=== PATIENT | female | born 1970 | race African-American/Black ===

== ENCOUNTER 2019-03-05 16:30 | Emergency (ER) | payer MEDICAID, SELFPAY ==
[2019-03-05 16:32] VITALS: BP 129/70; PULSE 63; RESP 16; TEMP 36.7; O2SAT 98; BMI 35.9
--- NOTE | 2019-03-05 16:47 | ED.VIS.GEN ---
History of Present Illness Chief Complaint: Flank Pain Informant: Patient Onset: Days Narrative: Patient presents to the ED with right lower abdominal pain and right lumbar/flank pain that started 4 days ago. She does report some associated nausea and hematuria. She states last month, she was treated by an urgent care for urinary tract infection with 5 days of Macrobid. She is concerned for worsening infection. She does have a history of bilateral tubal ligation and cholecystectomy. Past Medical History - Allergies and Home Meds Allergies/Adverse Reactions: Allergies codeine Allergy (Verified 03/05/19 16:32) Itching doxycycline Allergy (Verified 03/05/19 16:32) Itching latex Allergy (Verified 03/05/19 16:32) Rash sulfamethoxazole [From Bactrim] Allergy (Verified 03/05/19 16:32) Rash trimethoprim [From Bactrim] Allergy (Verified 03/05/19 16:32) Rash naproxen Adverse Reaction (Verified 03/05/19 16:32) Upset Stomach NSAIDS (Non-Steroidal Anti-Inflamma Adverse Reaction (Verified 03/05/19 16:32) Upset Stomach CILLINS Allergy (Uncoded 03/05/19 16:32) Swelling Primary Care Physician: [facility] Doctor,Out of [Primary Care Provider] - Review of Systems General: Denies: Chills, Fever, Sweats Eyes: Denies: Visual changes - bilaterally, Diplopia ENT: Denies: Rhinorrhea, Sore throat Cardiovascular: Denies: Chest pain, Palpitations Respiratory: Denies: Dyspnea, Cough, Dyspnea on exertion Gastrointestinal: Reports: Abdominal pain, Nausea, Diarrhea, - - R Flank pain. Denies: Vomiting, Melena, Hematochezia Genitourinary: Reports: Hematuria. Denies: Dysuria, Frequency Musculoskeletal: Denies: Back pain, Extremity Pain Skin: Denies: Rash, Wounds Neurological: Denies: Headache, Weakness, Numbness Physical Exam Vital Signs/Narrative: Vital Signs Temp Pulse Resp BP Pulse Ox 03/05/19 16:32 98.1 F 63 16 129/70 H 98 General: Well nourished, Well developed, No Acute Distress Head: Normocephalic, Atraumatic Eyes: Perrl, EOMI ENT: Moist mucous membranes, No rhinorrhea Neck: Supple, Nontender Cardiovascular: Regular rate, Regular rhythm, No murmurs Respiratory: No distress, CTA bilaterally, Chest nontender Abdomen: Soft, Nondistended, Normal bowel sounds, Tender - RLQ Back: Nontender, Normal Inspection Extremities: Nontender, No edema Skin: Normal color, No rash Neurological: Alert, Oriented x3, Cranial nerves II-XII grossly intact, Normal Strength, Normal Sensation Psychological: Normal affect, Normal Mood Diagnostic/Tx/Re-eval - Medical Decision Making Patient presents to the ED with right lower quadrant, right flank pain and nausea. Patient was given IV fluids, Zofran, and Toradol for symptomatic relief. CBC and BMP unremarkable. Urinalysis indicates occult blood with no white blood cells or red blood cells. CT abdomen/pelvis with IV contrast was done. Results will be be followed by Dr. Bowen and appropriate disposition will be made based on results. Impression: R flank pain. Hematuria. Disposition: ED Disposition - Plan for ED Patient: Referrals: [facility] Doctor,Out of [Primary Care Provider] -
[2019-03-05] MEDS: Ondansetron 4 MG/2 ML Vial IV (17:04)
[2019-03-05] MEDS: 0.9% Normal Saline 1,000 ML 1000 ML IV (17:04)
[2019-03-05] MEDS: Ketorolac 30 MG/ML Syringe IV (17:04)
[2019-03-05 17:10] LABS: Bacteria 0 SEEN /hpf (None Seen); Mucous, Urine 0 SEEN /hpf (<or=2+); White Blood Cells 0 SEEN /hpf (0-5)
[2019-03-05 17:11] LABS: Absolute Lymphocyte Count 2.38 X10^3/uL (0.83-4.51); Absolute Neutrophil Count 2.2 X10^3/uL (2.0-7.7); Basophil# 0.08 X10^3/uL; Basophil% 1.5 % (0-1); Eosinophil# 0.32 X10^3/uL; Hematocrit 39.9 % (37-47); Hemoglobin 13.5 g/dL (12.0-15.0); Lymphocyte # 2.38 X10^3/ul (4.0); Lymphocyte % 44.3 % (19-41); Mean Corp Hgb Conc 33.8 g/dL (32-36); Mean Corpuscular Hgb 29.5 pg (27.0-32.0); Mean Corpuscular Volume 87.1 fL (81-99); Mean Platelet Vol. 9.9 fl (6.2-12.0); Monocyte# 0.39 X10^3/uL; Monocyte% 7.3 % (0-10); NRBC Flagged by Analyzer 0 % (0-5); Neutrophil # 2.17 X10^3/uL (2.7-7.7); Neutrophil % 40.3 % (47-70); Platelet Count 323 K/mm3 (150-450); RBC Distribution Width CV 14.5 % (11.6-14.6); RBC Distribution Width SD 46.3 fl (35.1-43.9); Red Blood Count 4.58 M/mm3 (4.2-5.4); White Blood Count 5.4 K/mm3 (4.4-11.0)
[2019-03-05 17:13] LABS: Color, Urine Yellow (Yellow); Glucose, Dipstick Normal (Normal); Ketone-Dipstick Negative (Negative); Leukocyte Esterase-Dipstick Negative /ul (Negative); Nitrite-Dipstick Negative (Negative); Occult Blood-Urine 250 /ul (Negative); Protein-Dipstick 15 mg/dl (Negative); Specific Gravity, Urine 1.005 (1.002-1.030); Urine Bilirubin Dipstick Negative (Negative); Urine Clarity Clear (Clear); Urine Urobilinogen Normal (Normal)
[2019-03-05 17:15] LABS: Internal QC Validated? YES +Cl - CLEAR BKGD; Pregnancy, Urine Negative Negative
[2019-03-05 17:19] LABS: Red Blood Cells-Urine 0-5 SEEN /hpf (0-5); Squamous Epithelial Cells - UA 0-5 SEEN /hpf (5-10)
[2019-03-05 17:24] LABS: Anion Gap 6 (5-15); BUN 6 mg/dL (7-18); BUN/Creat Ratio 5.9 RATIO (10-20); Calcium,Total 8.5 mg/dL (8.5-10.1); Chloride 112 mmol/L (98-107); Creatinine, Serum 1.02 mg/dL (0.55-1.02); EST Glomerular Filtration Rate 62 mL/min (>60); Est Glom Filt Rate - Afr Amer 75 mL/min (>60); Estimated Creatinine Clearance 64.52 ml/min; Glucose 94 mg/dL (74-106); Potassium 3.3 mmol/L (3.5-5.1); Sodium Level 143 mmol/L (136-145)
--- NOTE | 2019-03-05 17:25 | CT_ITS ---
STUDY: CT ABDOMEN AND PELVIS WITH CONTRAST REASON FOR EXAM: Female, 48 years old. Right flank pain and painful urination. Status post tubal ligation and cholecystectomy. RADIATION DOSAGE (If Supplied By Facility): CTDIvol = ( 15.67 ) mGy, DLP = ( 951.34 ) mGycm TECHNIQUE: Transaxial images were obtained from the dome of the diaphragm to the symphysis pubis without oral contrast. 100 IV Isovue 370 was administered. Sagittal and coronal images were reconstructed. Individualized dose optimization techniques were used for this CT. COMPARISON: None. FINDINGS: The visualized lung bases are unremarkable. The visualized portions of the heart are within normal limits. Normal liver. There are surgical clips in the gallbladder fossa consistent with a prior cholecystectomy. Normal spleen. Normal pancreas. Normal bilateral adrenal glands. Normal right kidney. Normal left kidney. Normal visualized stomach. Normal small intestine. Normal colon. The appendix is visualized and appears normal. Normal abdominal aorta. Normal inferior vena cava. Normal retroperitoneum. Normal urinary bladder. 3 cm right fundal uterine fibroid. Normal ovaries bilaterally. No free fluid of the pelvis. Normal abdominal wall. Degenerative disc findings primarily at L5-S1. CT/Abdomen/Pelvis W IV Cont ONLY IMPRESSION: Normal size of the kidneys bilaterally without hydronephrosis, renal or ureteral stones. No other cortical abnormalities. Unremarkable nondistended urinary bladder. 3 cm right fundal uterine fibroid. Otherwise negative for pelvic mass or free fluid in the pelvis. No acute bowel related findings. Negative for evidence of obstruction, perforation or inflammatory bowel changes. A normal appendix is identified. Unremarkable liver spleen and pancreas status post cholecystectomy. Electronically Signed: Ora Swanson MD at 18:16 EDT , Service support ,
--- NOTE | 2019-03-05 18:44 | DCINST.ED_ITS ---
ED Disposition - Plan for ED Patient: Disposition: Home or Assisted Living Instructions: FLANK PAIN, Uncertain Cause Prescriptions: Hydrocodone Bitart/Apap 5-325 [[place] 5MG-325MG] 1 tablet PO Q6H PRN PRN 3 Days #10 tablet PRN Reason: Pain Ondansetron [Zofran Odt] 4 mg PO Q8H PRN PRN #10 tablet PRN Reason: Nausea Referrals: Everardo Lu MD [STAFF PHYSICIAN] - As Needed
[2019-03-05 18:55] VITALS: BP 117/80; PULSE 57; RESP 15
== END 2019-03-05 19:18 | disposition home or self-care (01) ==
PROVIDERS: Physician Assistant; Emergency Provider Emergency Medicine
DX: R10.9 Unspecified abdominal pain (principal); R31.9 Hematuria, unspecified; Z88.2 Allergy status to sulfonamides; Z98.51 Tubal ligation status; Z90.49 Acquired absence of other specified parts of digestive tract; D25.9 Leiomyoma of uterus, unspecified; Z87.440 Personal history of urinary (tract) infections
CPT/HCPCS: 74177; 80048; 81001; 81025; 85025; 96361; 96374; 96375; 99283; J7030; Q9967; J2405

== ENCOUNTER 2019-03-11 16:28 | Emergency (ER) | payer MEDICAID, SELFPAY ==
[2019-03-11 16:30] VITALS: BP 135/83; PULSE 60; RESP 16; TEMP 36.5; O2SAT 98; BMI 35.9
--- NOTE | 2019-03-11 16:55 | ED.VIS.GI ---
History of Present Illness Chief Complaint: GI Bleed Informant: Patient - Abdominal Pain/Flank Pain Onset: Weeks - 1-2 Context: Gradual Onset Timing: Continuous, Waxes and wanes - before today Quality: Aching Location: Right Flank - without radiation Current Severity: Moderate Maximum Severity: Moderate Worsened by: - - lying on that side/area. Not Worsened By: Food Relieved by: Nothing. Not Relieved By: Food - Nausea/Vomiting/Emesis GI Symptom: Nausea - off and on. Negative for: Vomiting - Diarrhea/Melena/Hematochezia GI Symptom: Melena, Hematochezia - today -- mixed in w/ stool, bright red blood, relatively small amount, and when she wiped Associated Symptoms: - - I have been peeing in the hat they gave me from the ER last week, and I've seen nothing in my urine.. Negative for: Dysuria, Frequency, Hematuria, Urgency Narrative: Patient was seen here last week for this same pain, she had a negative work-up including CT that showed no kidney stones and no evidence of appendicitis. She states the pain is been colicky, but today it stayed and has been constant. The only new symptom she has has been blood in her stool that she noticed once today. She has had normal appetite, eating does not seem to affect the discomfort. She states she has been having urinary symptoms of an infection. She was placed on Cipro after seen in urgent care prior to her prior ER visit, about a month ago. She has had the urinary symptoms ever since. - Past Medical History (1) GERD (gastroesophageal reflux disease) Status: Chronic Past Medical History - Allergies and Home Meds Allergies/Adverse Reactions: Allergies codeine Allergy (Verified 03/11/19 16:29) Itching doxycycline Allergy (Verified 03/11/19 16:29) Itching latex Allergy (Verified 03/11/19 16:29) Rash sulfamethoxazole [From Bactrim] Allergy (Verified 03/11/19 16:29) Rash trimethoprim [From Bactrim] Allergy (Verified 03/11/19 16:29) Rash naproxen Adverse Reaction (Verified 03/11/19 16:29) Upset Stomach NSAIDS (Non-Steroidal Anti-Inflamma Adverse Reaction (Verified 03/11/19 16:29) Upset Stomach CILLINS Allergy (Uncoded 03/11/19 16:29) Swelling Primary Care Physician: [facility] Doctor,Out of [Primary Care Provider] - Lives: Spouse/ Significant Other Smoking Status: Never smoker Alcohol: None Drugs: None Review of Systems General: Denies: Chills, Fever, Sweats Eyes: Denies: Visual changes - bilaterally, Diplopia ENT: Denies: Rhinorrhea, Sore throat Cardiovascular: Denies: Chest pain, Palpitations Respiratory: Denies: Dyspnea, Cough, Dyspnea on exertion Gastrointestinal: Reports: Abdominal pain, Nausea, Melena, Hematochezia. Denies: Vomiting, Diarrhea Genitourinary: Reports: Dysuria, Frequency, - - Urgency. Denies: Hematuria Musculoskeletal: Denies: Back pain, Swelling, Extremity Pain Skin: Denies: Rash, Wounds Neurological: Denies: Headache, Weakness, Numbness Physical Exam Vital Signs/Narrative: Vital Signs Temp Pulse Resp BP Pulse Ox 03/11/19 16:30 97.7 F L 60 16 135/83 H 98 Inital Vital Signs reviewed: Yes General: Well nourished, Well developed, No Acute Distress - Well-appearing, conversive Head: Normocephalic, Atraumatic Eyes: Perrl, EOMI ENT: Moist mucous membranes, No rhinorrhea Neck: Supple, Nontender Cardiovascular: Regular rate, Regular rhythm, No murmurs Respiratory: No distress, CTA bilaterally, Chest nontender Abdomen: Soft, Nondistended, Normal bowel sounds, Tender - In the right upper flank. No anterior abdominal tenderness.. Negative for: Guarding, Rebound tenderness, Erickson's sign Back: Nontender, Normal Inspection. Negative for: CVA tenderness Extremities: Nontender, No edema Skin: Normal color, No rash, No Trauma Neurological: Alert, Oriented x3, Cranial nerves II-XII grossly intact, Normal Strength, Normal Sensation Psychological: Normal affect, Normal Mood Diagnostic/Tx/Re-eval 03/11/19 17:57 Stool Stool Occult Blood (RAINER) - Final Laboratory Results 03/11/19 03/11/19 03/11/19 17:12 17:12 17:12 WBC 3.9 L RBC 4.58 Hgb 13.4 Hct 39.7 MCV 86.7 MCH 29.3 MCHC 33.8 RDW Std Deviation 45.7 H RDW Coeff of Caroline 14.4 Plt Count 291 MPV 9.8 Immature Gran % (Auto) 0.300 Neut % (Auto) 33.9 L Lymph % (Auto) 49.1 H [place] % (Auto) 9.0 Eos % (Auto) 6.7 H Baso % (Auto) 1.0 Absolute Neuts (auto) 1.3 L Absolute Lymphs (auto) 1.90 Nucleated RBC % 0 Sodium 142 Potassium 3.2 L Chloride 111 H Carbon Dioxide 25.0 Anion Gap 6 BUN 4 L Creatinine 0.88 Estim Creat Clear Calc 74.78 Est GFR (MDRD) Af Amer 88 Est GFR (MDRD) Non-Af 73 BUN/Creatinine Ratio 4.5 L Glucose 93 Calcium 8.6 Total Bilirubin 0.90 AST 20 ALT 23 Alkaline Phosphatase 73 Total Protein 7.2 Albumin 3.6 Globulin 3.6 Albumin/Globulin Ratio 1.0 Urine Color Yellow Urine Clarity Cloudy Urine pH 6.5 Ur Specific [place] 1.010 Urine Protein 15 H Urine Glucose (UA) Normal Urine Ketones Negative Urine Occult Blood 10 H Urine Nitrite Negative Urine Bilirubin Negative Urine Urobilinogen Normal Ur Leukocyte Esterase 500 H Urine RBC 0-5 SEEN Urine WBC 50-100 SEEN Ur Squamous Epith Cells 0-5 SEEN Urine Bacteria 1+ Urine Mucus 0 SEEN - Medical Decision Making Urine shows evidence of infection and significant pyuria. I will send for a culture, she has several medication allergies. I do not think she has pyelonephritis, however I do not have reason for her right flank pain. She was no better after Bentyl and a GI cocktail, her rectal exam showed no melena, it was light brown stool that was Hemoccult negative. There were no hemorrhoids on exam, no tenderness, basically within normal digital rectal exam. Her pain could be GI in etiology, but all of this lends itself against that; it could be muscular as well. She is very comfortable and I do not think needs any narcotics. I will treat her urine, hopefully her pain will get better, and I will treat her with a prolonged course of cephalexin to cover against the possibility of pyelonephritis. Given her allergies and prior unsuccessful use of Cipro, that leaves us with cephalexin, which will require her to get an initial dose of ceftriaxone before discharge. I see no reason to repeat her CT scan since she had all the symptoms before, and last week the CT was negative. I discussed this with her and she understands all that and is following up with her doctor, with whom she has an appointment. ED Disposition - Plan for ED Patient: Disposition: Home or Assisted Living Diagnosis: Acute right flank pain, Urinary tract infection, Rectal bleeding Instructions: Understanding Rectal Bleeding, Urinary Tract Infections in Women, FLANK PAIN, Uncertain Cause Prescriptions: Cephalexin [Keflex] 500 mg PO Q8 #30 cap Prescription Printed Referrals: [facility] Doctor,Out of [Primary Care Provider] - Keep Valorie appointment
[2019-03-11 16:57] VITALS: BP 127/85; PULSE 54; RESP 16; O2SAT 98
[2019-03-11 17:23] LABS: Mucous, Urine 0 SEEN /hpf (<or=2+)
[2019-03-11 17:25] LABS: Color, Urine Yellow (Yellow); Glucose, Dipstick Normal (Normal); Ketone-Dipstick Negative (Negative); Leukocyte Esterase-Dipstick 500 /ul (Negative); Nitrite-Dipstick Negative (Negative); Occult Blood-Urine 10 /ul (Negative); Protein-Dipstick 15 mg/dl (Negative); Urine Bilirubin Dipstick Negative (Negative); Urine Clarity Cloudy (Clear); Urine Urobilinogen Normal (Normal); Urine pH 6.5 (5.0 - 8.0)
[2019-03-11 17:26] LABS: Absolute Neutrophil Count 1.3 X10^3/uL (2.0-7.7); Basophil# 0.04 X10^3/uL; Eosinophil# 0.26 X10^3/uL; Eosinophils% 6.7 % (0-5); Hematocrit 39.7 % (37-47); Hemoglobin 13.4 g/dL (12.0-15.0); Lymphocyte % 49.1 % (19-41); Mean Corp Hgb Conc 33.8 g/dL (32-36); Mean Corpuscular Hgb 29.3 pg (27.0-32.0); Mean Corpuscular Volume 86.7 fL (81-99); Mean Platelet Vol. 9.8 fl (6.2-12.0); Monocyte# 0.35 X10^3/uL; NRBC Flagged by Analyzer 0 % (0-5); Neutrophil # 1.31 X10^3/uL (2.7-7.7); Neutrophil % 33.9 % (47-70); Platelet Count 291 K/mm3 (150-450); RBC Distribution Width CV 14.4 % (11.6-14.6); RBC Distribution Width SD 45.7 fl (35.1-43.9); Red Blood Count 4.58 M/mm3 (4.2-5.4); White Blood Count 3.9 K/mm3 (4.4-11.0)
[2019-03-11] MEDS: Dicyclomine 10 MG Capsule 20 MG PO (17:26)
[2019-03-11] MEDS: Mag Hydrox/Al Hydrox/Simeth 30 ML UDC PO (17:27)
[2019-03-11 17:37] LABS: Red Blood Cells-Urine 0-5 SEEN /hpf (0-5); White Blood Cells 50-100 SEEN /hpf (0-5)
[2019-03-11 17:38] LABS: Bacteria 1+ /hpf (None Seen); Squamous Epithelial Cells - UA 0-5 SEEN /hpf (5-10)
[2019-03-11 17:41] LABS: AST(SGOT) 20 U/L (15-37); Alanine Aminotransfer ALT/SGPT 23 U/L (13-56); Albumin, Serum 3.6 g/dL (3.2-5.0); Alkaline Phosphatase 73 U/L (45-117); Anion Gap 6 (5-15); BUN 4 mg/dL (7-18); BUN/Creat Ratio 4.5 RATIO (10-20); Calcium,Total 8.6 mg/dL (8.5-10.1); Chloride 111 mmol/L (98-107); Creatinine, Serum 0.88 mg/dL (0.55-1.02); EST Glomerular Filtration Rate 73 mL/min (>60); Est Glom Filt Rate - Afr Amer 88 mL/min (>60); Estimated Creatinine Clearance 74.78 ml/min; Globulin 3.6 g/dL (2.2-4.2); Glucose 93 mg/dL (74-106); Potassium 3.2 mmol/L (3.5-5.1); Protein, Total 7.2 g/dL (6.4-8.2); Sodium Level 142 mmol/L (136-145)
[2019-03-11 18:33] VITALS: BP 124/85; PULSE 55; RESP 16; O2SAT 98
[2019-03-11] MEDS: Ceftriaxone 1 GM/50 ML BAG IV (19:08)
[2019-03-11 20:01] VITALS: BP 135/88; PULSE 58; RESP 16; O2SAT 99
== END 2019-03-11 20:03 | disposition home or self-care (01) ==
PROVIDERS: Emergency Provider Emergency Medicine
DX: N39.0 Urinary tract infection, site not specified (principal); K92.1 Melena; K21.9 Gastro-esophageal reflux disease without esophagitis; Z88.1 Allergy status to other antibiotic agents; Z88.2 Allergy status to sulfonamides; Z88.6 Allergy status to analgesic agent; Z91.040 Latex allergy status
CPT/HCPCS: 80053; 81001; 82274; 85025; 87086; 87088; 96365; 99284; A4216

== ENCOUNTER 2023-03-01 00:54 | Observation (INO) | payer MEDICAID, SELFPAY ==
[2023-03-01] VITALS (7 sets, daily range): BP systolic 113–132; BP diastolic 75–93; PULSE 69–80; RESP 16–18; TEMP 36.4–36.7; O2SAT 97–100; BMI 27.9; BMI 23.8
--- NOTE | 2023-03-01 01:19 | EX.ED.SAOD ---
HPI History of Present Illness Chief Complaint: Substance Abuse Informant: patient Narrative Narrative: Presents here requesting detox. Reports previous heroin user went to [facility] in 2017. Patient relapsed this past September using Percocet 30s and cocaine. She reports she did take half a tab Percocet she requested Percocet and snorted with cocaine. She does this on a daily basis sometimes multiple times a day. Last use 10 PM. She was incarcerated for 15 days in January had withdrawal symptoms then when she got she started using again. Denies any current nausea or vomiting. History of bipolar anxiety depression states she stopped taking her medications when she started using the drugs. She denies any suicidal or homicidal ideations. Denies alcohol use. She was reporting when she was in long-term had polysubstance findings from her toxicology screen including methadone MDMA and benzos which she states she did not use those. She had meth stating she tried it before long-term did not like it. Medically discussion she states she has concerns for leg swelling. No trouble urinating. She states she was attacked by pit bull in January before going to long-term. Denies any fevers. Prior similar symptoms: [facility] Medical History (Updated 03/01/23 @ 01:[address] Kristen Caraballo MD) Allergic rhinitis Anxiety and depression Bipolar disorder Chronic anemia GERD (gastroesophageal reflux disease) Iron deficiency anemia IV drug abuse Overweight Polysubstance abuse Home Medications citalopram 40 mg tablet 60 mg PO DAILY 03/05/19 [History Last Taken 03/11/19] hydroxyzine pamoate 50 mg capsule 50 mg PO DAILY 03/05/19 [History Last Taken 03/11/19] ondansetron 4 mg disintegrating tablet 4 mg PO Q8H PRN PRN Nausea #10 tabs 03/05/19 [Rx Last Taken 03/11/19] quetiapine 100 mg tablet 100 mg PO QHS 03/05/19 [History Last Taken 03/10/19] ranitidine HCl 150 mg tablet 150 mg PO DAILY 03/05/19 [History Last Taken 03/11/19] amlodipine 5 mg tablet 5 mg PO DAILY 03/11/19 [History Last Taken 03/11/19] ferrous sulfate 325 mg (65 mg iron) tablet 325 mg PO BID 03/11/19 [History Last Taken 03/11/19] topiramate 25 mg tablet 50 mg PO BID PRN PRN Headache 03/11/19 [History Last Taken Unknown] Allergy/AdvReac Type Severity Reaction Status Date / Time codeine Allergy Itching Verified 03/11/19 16:29 doxycycline Allergy Itching Verified 03/11/19 16:29 latex Allergy Rash Verified 03/11/19 16:29 Penicillins [cillins] Allergy Swelling Verified 06/28/22 14:55 sulfamethoxazole Allergy Rash Verified 03/11/19 16:29 [From Bactrim] trimethoprim [From Bactrim] Allergy Rash Verified 03/11/19 16:29 naproxen AdvReac Upset Verified 03/11/19 16:29 Stomach NSAIDS (Non-Steroidal AdvReac Upset Verified 03/11/19 16:29 Anti-Inflamma Stomach Social History Smoking Status: Never smoker ROS ROS ED Constitutional Constitutional ED: Denies chills, fever(s) or sweats Eyes Eyes: Denies change in vision ENT ENT ED: Denies dysphagia or sore throat Cardiovascular Cardiovascular: Reports leg edema; Denies chest pain, palpitations or racing heartbeat Respiratory/Chest Respiratory/Chest: Denies cough, dyspnea or dyspnea on exertion Gastrointestinal Gastrointestinal: Denies abdominal pain, diarrhea, nausea or vomiting Genitourinary Genitourinary ED: Denies dysuria, hematuria or urinary frequency Musculoskeletal Musculoskeletal: Denies back pain, extremity pain or neck pain Integumentary Denies rash or wounds Neurologic Neurologic: Denies headache(s), paresthesias or weakness Psychiatric Psychiatric: Denies suicidal ideation or suicidal thoughts EXAM Physical Exam Const Vital Signs: 03/01/23 00:55 Temperature 98 F Temperature Source Temporal Pulse Rate 77 Respiratory Rate 18 Blood Pressure 129/89 H Blood Pressure Mean 102 Pulse Ox 97 Oxygen Delivery Method Room Air Positive well nourished and well developed Constitutional Narrative: Nontoxic, General Appearance ED: well developed and NAD HEENT Reports moist mucous membranes normocephalic and atraumatic Eyes PERRL, EOMs intact bilaterally and conjunctivae normal General Eye ED: Yes normal appearance of both eyes Neck no lymphadenopathy and supple General: Negative for tenderness Chest Wall Chest: Negative for tenderness Resp normal respiratory effort and normal air movement Effort and Inspection: symmetric chest movement; Negative for respiratory distress Cardio regular rate, regular rhythm and no murmurs Peripheral Pulses: pulses 2+ throughout GI normal to inspection, nondistended, normoactive bowel sounds and non-tender Palpation: Negative for guarding or rebound tenderness present Back/Spine no CVA tenderness and no thoracic nor lumbar tenderness Extremity normal to inspection General Extremety ED: Negative for edema or tenderness General Extremity: Negative for edema Neuro oriented x3 and no sensory deficits noted Sensorium / Orientation: awake and alert Psych Psych Narrative: Denies suicidal homicidal ideations. Skin no wounds Skin Narrative: Lower extremities scattered areas abrasions and healing scabs. No indurations no drainage no erythema. MDM MDM MDM Narrative Medical decision making narrative: Interventions / MDM: Differential diagnosis: Polysubstance abuse Diagnosis considered but do not suspect: No suicidal homicidal ideations. My EKG interpretation: N/A Imaging independently reviewed and interpreted by myself: N/A External documents reviewed: N/A Test considered but not ordered:N/A ED course: Vital signs stable, nontoxic. No current withdrawal symptoms. Medical screening labs ordered. 0135: Patient concerns of leg swelling pain. Lab normal creatinine 0.93. Potassium 3.2 however chronically low from her previous labs. She is not on a diuretic. Oral replacement skin. Toxicology screen ecstasy and cocaine. No opiates or methadone, however she reports she uses Percocet 30s. Will speak with hospitalist for admission to assist with detoxification. Discussed with Dr. Caraballo for admission. Re-evaluation: stable Disposition discussed with patient/family/significant other: Case discussed with consulting clinician: Hospitalist This note was generated with [employer] dictation software. It may contain incorrect words, spelling, and punctuation that were not noted in checking the note before signing. Lab Data Attestation: I reviewed the patient's lab results. Labs: Laboratory Results - last 24 hr 03/01/23 03/01/23 01:02 01:12 WBC 6.4 RBC 3.91 L Hgb 11.2 L Hct 35.1 L MCV 89.8 MCH 28.6 MCHC 31.9 L RDW Std Deviation 43.7 RDW Coeff of Caroline 13.4 Plt Count 321 MPV 9.2 Immature Gran % (Auto) 0.300 Neut % (Auto) 54.0 Lymph % (Auto) 32.7 [place] % (Auto) 7.2 Eos % (Auto) 4.9 Baso % (Auto) 0.9 Absolute Neuts (auto) 3.5 Absolute Lymphs (auto) 2.09 Nucleated RBC % 0 Sodium 145 Potassium 3.2 L Chloride 110 H Carbon Dioxide 31.0 Anion Gap 4 L BUN 11 Creatinine 0.93 Estim Creat Clear Calc 65.12 Est GFR (MDRD) Af Amer 82 Est GFR (MDRD) Non-Af 67 BUN/Creatinine Ratio 11.8 Glucose 155 H Calcium 9.0 Magnesium 1.7 Total Bilirubin 0.70 Direct Bilirubin 0.18 AST 17 ALT 23 Alkaline Phosphatase 79 Total Protein 7.2 Albumin 3.5 Globulin 3.7 Serum , Qual NEGATIVE Urine Opiates Screen NEGATIVE Urine Methadone Screen NEGATIVE Ur Barbiturates Screen NEGATIVE Ur Phencyclidine Scrn NEGATIVE Ur Amphetamines Screen NEGATIVE MDMA (Ecstasy) Screen POSITIVE H U Benzodiazepines Scrn NEGATIVE Urine Cocaine Screen POSITIVE H U Cannabinoids Screen NEGATIVE Ur Drug Screen Comment Ethyl Alcohol < 3.0 Discharge Plan Dx/Rx/DC Orders Clinical Impression: Polysubstance dependence, History of bipolar disorder, Noncompliance with medication regimen, Hypokalemia Disposition Disposition: Acute Care Hospital [facility]
[2023-03-01 01:23] LABS: Absolute Lymphocyte Count 2.09 X10^3/uL (0.83-4.51); Absolute Neutrophil Count 3.5 X10^3/uL (2.0-7.7); Basophil# 0.06 X10^3/uL; Basophil% 0.9 % (0-1); Eosinophil# 0.31 X10^3/uL; Eosinophils% 4.9 % (0-5); Hematocrit 35.1 % (37-47); Hemoglobin 11.2 g/dL (12.0-15.0); Lymphocyte # 2.09 X10^3/ul (0.83-4.51); Lymphocyte % 32.7 % (19-41); Mean Corp Hgb Conc 31.9 g/dL (32-36); Mean Corpuscular Hgb 28.6 pg (27.0-32.0); Mean Corpuscular Volume 89.8 fL (81-99); Mean Platelet Vol. 9.2 fl (6.2-12.0); Monocyte# 0.46 X10^3/uL; Monocyte% 7.2 % (0-10); NRBC Flagged by Analyzer 0 % (0-5); Neutrophil # 3.45 X10^3/uL (2.7-7.7); Platelet Count 321 K/mm3 (150-450); RBC Distribution Width CV 13.4 % (11.6-14.6); RBC Distribution Width SD 43.7 fl (35.1-43.9); Red Blood Count 3.91 M/mm3 (4.2-5.4); White Blood Count 6.4 K/mm3 (4.4-11.0)
[2023-03-01 01:28] LABS: Amphetamine Urine VISTA NEGATIVE (<1000 ng/mL); Vista UDS pH Range 4
[2023-03-01 01:29] LABS: Barbiturate Urine VISTA NEGATIVE (< 200 ng/mL); Benzodiazepine Urine VISTA NEGATIVE (< 200 ng/mL); Cocaine Urine VISTA POSITIVE (< 300 ng/mL); Ecstacy Urine VISTA POSITIVE (< 500 ng/mL); Methadone Urine VISTA NEGATIVE (< 300 ng/mL); PCP Urine VISTA NEGATIVE (< 25 ng/mL); THC Urine VISTA NEGATIVE (< 50 ng/mL)
[2023-03-01 01:30] LABS: Internal QC Validated? YES +Cl - CLEAR BKGD; Pregnancy, Serum, hCG Quali. NEGATIVE Negative
[2023-03-01 01:33] LABS: Anion Gap 4 (5-15); BUN 11 mg/dL (7-18); BUN/Creat Ratio 11.8 RATIO (10-20); Chloride 110 mmol/L (98-107); Creatinine, Serum 0.93 mg/dL (0.55-1.02); EST Glomerular Filtration Rate 67 mL/min (>60); Est Glom Filt Rate - Afr Amer 82 mL/min (>60); Estimated Creatinine Clearance 65.12 ml/min; Glucose 155 mg/dL (74-106); Potassium 3.2 mmol/L (3.5-5.1); Sodium Level 145 mmol/L (136-145)
[2023-03-01 01:40] LABS: Alcohol, Blood (Medical)-Serum < 3.0 mg/dL
--- NOTE | 2023-03-01 01:45 | PCM.HP.STD ---
HPI - General General Date of Admission: 03/01/23 Date of Service: 03/01/23 Chief Complaint: Acute Opiate withdrawal HPI Narrative The patient is a 52 y/o F w/ PMHx: Allergic rhinitis, HTN, Anxiety and Depression/Bipolar disorder, GERD, Overweight, Polysubstance abuse (Percocet/Opiates/Cocaine, Prior IVDA w/ heroin) who presents to the [facility] ED on 03/01/23 with noted acute opiate withdrawal onset starting just prior to presentation following last dose at approximately 10 PM on day prior to presentation with primarily at this point mild agitation and restlessness but no marked abdominal pain/cramping, body aches, rhinorrhea presenting for detoxification. Patient interested in attaining clean status. Patient is a previous heroin user and was admitted for detox in 2017 unfortunately relapsing this September utilizing both Percocets and cocaine multiple times a day until she was incarcerated for approximately half a month in January with withdrawal symptoms at that time however unfortunately she started using again. Work-up in the ED included T98, heart rate 77, BP 129/89, respiratory rate 18, 97% room air, CBC with WBC 6.4, hemoglobin 11.2, MCV 89.8, platelet 321 without marked shift, BMP with potassium 3.2, glucose 155 otherwise not marked appearing, serum negative, UDS positive for MDMA and cocaine, ethyl alcohol level <3. [facility] Medical History (Updated 03/01/23 @ 01:[address] Kristen Caraballo MD) Allergic rhinitis Anxiety and depression Bipolar disorder Chronic anemia GERD (gastroesophageal reflux disease) Iron deficiency anemia IV drug abuse Overweight Polysubstance abuse Home Medications citalopram 40 mg tablet 60 mg PO DAILY 03/05/19 [History Last Taken 03/11/19] hydroxyzine pamoate 50 mg capsule 50 mg PO DAILY 03/05/19 [History Last Taken 03/11/19] ondansetron 4 mg disintegrating tablet 4 mg PO Q8H PRN PRN Nausea #10 tabs 03/05/19 [Rx Last Taken 03/11/19] quetiapine 100 mg tablet 100 mg PO QHS 03/05/19 [History Last Taken 03/10/19] ranitidine HCl 150 mg tablet 150 mg PO DAILY 03/05/19 [History Last Taken 03/11/19] amlodipine 5 mg tablet 5 mg PO DAILY 03/11/19 [History Last Taken 03/11/19] ferrous sulfate 325 mg (65 mg iron) tablet 325 mg PO BID 03/11/19 [History Last Taken 03/11/19] topiramate 25 mg tablet 50 mg PO BID PRN PRN Headache 03/11/19 [History Last Taken Unknown] Allergy/AdvReac Type Severity Reaction Status Date / Time codeine Allergy Itching Verified 03/11/19 16:29 doxycycline Allergy Itching Verified 03/11/19 16:29 latex Allergy Rash Verified 03/11/19 16:29 Penicillins [cillins] Allergy Swelling Verified 06/28/22 14:55 sulfamethoxazole Allergy Rash Verified 03/11/19 16:29 [From Bactrim] trimethoprim [From Bactrim] Allergy Rash Verified 03/11/19 16:29 naproxen AdvReac Upset Verified 03/11/19 16:29 Stomach NSAIDS (Non-Steroidal AdvReac Upset Verified 03/11/19 16:29 Anti-Inflamma Stomach Family History (Updated 03/01/23 @ 02:[address] Kristen Caraballo MD) Mother Diabetes Hypertension Rheumatoid arthritis Father Diabetes Cancer Hypertension Surgical History (Updated 03/01/23 @ 02:[address] Kristen Caraballo MD) History of tubal ligation Hx of cholecystectomy Social History (Updated 03/01/23 @ 02:[address] Kristen Caraballo MD) household members: other details: Her 18 year old daughter lives with her. Smoking Status: Never smoker alcohol intake: never substance use type: crack/cocaine, heroin, opiates and IV drugs ROS ROS Narrative Admission Review of Systems: CONSTITUTIONAL: No weight loss, fever, chills, + weakness or fatigue. HEENT: Eyes: No visual loss, blurred vision, double vision or yellow sclerae. Ears, Nose, Throat: No hearing loss, sneezing, congestion, runny nose or sore throat. SKIN: + Hx canine bit prior to recent incarceration. CARDIOVASCULAR: No chest pain, chest pressure or chest discomfort, palpitations, edema, orthopnea, syncopal events. RESPIRATORY: No shortness of breath, cough or sputum, wheezing, hemoptysis. GASTROINTESTINAL:+ anorexia. No nausea, vomiting or diarrhea, abdominal pain, melena, BRBPR. GENITOURINARY: No dysuria, frequency, urgency or retention. NEUROLOGICAL: + Restlessness. No headache, dizziness, syncope, paralysis, ataxia, numbness or tingling in the extremities, focal weakness, change in bowel or bladder control, seizure. MUSCULOSKELETAL: + muscle, back pain, joint pain or stiffness. HEMATOLOGIC: No anemia, bleeding or bruising. LYMPHATICS: No enlarged nodes. No history of splenectomy. PSYCHIATRIC: + history of depression or anxiety. ENDOCRINOLOGIC: No reports of sweating, cold or heat intolerance. No polyuria or polydipsia. ALLERGIES: + history of rhinitis. Vital Signs Vital Signs Vital Signs: 03/01/23 00:55 Temperature 98 F Temperature Source Temporal Pulse Rate 77 Respiratory Rate 18 Blood Pressure 129/89 H Blood Pressure Mean 102 Pulse Ox 97 Oxygen Delivery Method Room Air Weight Weight: 167 lb 15.876 oz Body Mass Index (BMI) 27.9 Physical Exam Narrative Physical Examination: General: Awake, alert, oriented x 3 and cooperative, seated upright in the ED bed in no apparent distress, very restless, moving around the room constantly. Skin: Normal color, normal turgor, no icterus, no cyanosis except for various abrasions, picked region. HEENT: AT/NC, EOMI, PERRLA, mildly dry MM, no carotid bruits or JVD noted. Lungs: Diminished, > bases, appropriate effort, no rales, ronchi or wheezing. Heart: Regular rate and rhythm; no gallop, rub audible. Abdomen: Soft, overweight, NTTP, ND, mildly hyperative BS, no HSM. Extremities: No cyanosis, clubbing, or edema. Neurological: Patient awake, alert, oriented as noted, cognitive function intact; pupils equally reactive to light and accommodation, cranial nerves grossly normal, moving all 4 extremities, no focal deficits, strength mildly globally decreased secondary to acute presentation, restless. Psychiatric: Affect appears restless, mildly agitated, no acute evidence of depressive or anxiety feelings but does have underlying history. Results Lab / Micro Data 03/01/23 01:12 03/01/23 01:12 Labs: Laboratory Results - last 24 hr 03/01/23 01:02: Urine Opiates Screen NEGATIVE, Urine Methadone Screen NEGATIVE, Ur Barbiturates Screen NEGATIVE, Ur Phencyclidine Scrn NEGATIVE, Ur Amphetamines Screen NEGATIVE, MDMA (Ecstasy) Screen POSITIVE H, U Benzodiazepines Scrn NEGATIVE, Urine Cocaine Screen POSITIVE H, U Cannabinoids Screen NEGATIVE, Ur Drug Screen Comment 03/01/23 01:12: WBC 6.4, RBC 3.91 L, Hgb 11.2 L, Hct 35.1 L, MCV 89.8, MCH 28.6, MCHC 31.9 L, RDW Std Deviation 43.7, RDW Coeff of Caroline 13.4, Plt Count 321, MPV 9.2, Immature Gran % (Auto) 0.300, Neut % (Auto) 54.0, Lymph % (Auto) 32.7, [place] % (Auto) 7.2, Eos % (Auto) 4.9, Baso % (Auto) 0.9, Absolute Neuts (auto) 3.5, Absolute Lymphs (auto) 2.09, Nucleated RBC % 0, Sodium 145, Potassium 3.2 L, Chloride 110 H, Carbon Dioxide 31.0, Anion Gap 4 L, BUN 11, Creatinine 0.93, Estim Creat Clear Calc 65.12, Est GFR (MDRD) Af Amer 82, Est GFR (MDRD) Non-Af 67, BUN/Creatinine Ratio 11.8, Glucose 155 H, Calcium 9.0, Serum , Qual NEGATIVE, Ethyl Alcohol < 3.0 Assessment & Plan Assessment/Plan (1) Opiate withdrawal: PLAN: Plan The patient is a 52 y/o F w/ PMHx: Allergic rhinitis, HTN, Anxiety and Depression/Bipolar disorder, GERD, Overweight, Polysubstance abuse (Percocet/Opiates/Cocaine, Prior IVDA w/ heroin) who presents to the [facility] ED on 03/01/23 with noted acute opiate withdrawal onset starting just prior to presentation following last dose at approximately 10 PM on day prior to presentation with primarily at this point mild agitation and restlessness. #1. Acute Opiate Withdrawal: Will admit to [facility], routine labs including CBC, BMP, urine for drug screen, EtOH initiated per ED physician, will add hepatic panel. Will initiate and continue on protocol with tapering course of Subutex, as needed tylenol, ibuprofen, bowel regimen, gabapentin, Bentyl, Vistaril, methocarbamol, clonidine, PRN nightly trazodone for insomnia, IV fluids, IV antiemetics. Once patient clinically improved and completion of taper nearing will plan consultation with case management for transition to next level of rehabilitation care. #2. Polysubstance Abuse with history of prior IV drug abuse: Given abuse history of IVDA to be cautious will request HIV, hepatitis panel as well as RPR given prominent in the community to be cautious. patient currently not candidate for hep C treatment currently as needs to be clean, sober x 6 months, documented attendance NA or AA meetings, counseling and ongoing negative drug screens. Once appropriate GI, ID to initiate. HIV, hepatitis panel to assess for co-infection pending. Encouraged PCP establishment and follow-up. #3. Hypokalemia: Admission K+ 3.2, magnesium level requested, supplementation given, repeat level in AM. #4. Hyperglycemia: Admission glucose 155, no diabetic history, to be cautious we will obtain hemoglobin A1c and if consistent with diabetes will request nutrition consultation for education and teaching and transition to ADA diet with Accu-Cheks with insulin sliding scale #5. Hypertension: From recent medications noted patient was started on norvasc, BP currently normal range and she states she is not taking, potentially related with cocaine usage, will hold regimen restart and monitor BP with re-addition if appropriate. #6. Chronic anemia/Fe deficiency: Admission CBC with hemoglobin 11.2, MCV 89.8, most recent labs noted 03/11/19 with Hgb 13.4 at that time, prior medication list noting Fe supplementation BID, no longer taking. #7. Anxiety and Depression/Bipolar disorder: Patient previously per records had been on Seroquel, hydroxyzine as well as citalopram, reports no longer taking, unfortunately likely contributing to her opiate abuse as well as cocaine use, will encourage aggressive outpatient follow-up and medications for appropriate #8. GERD: Will cotninue home famotidine regimen, PRN mylanta regimen. #9. Allergic rhinitis: From records patient Rx 10/24/22 adrián, given her psychiatric history to be cautious with its black box warning will d/c this medication and recommend claritin or allergra as an initial agent instead. #10. Overweight: Weight loss and lifestyle changes encouraged. #11. DVT prophylaxis: Low risk for current presentation. Charges/Coding Visit Charges Inpatient E&M: 00447 Init Hosp L3
[2023-03-01] MEDS: Potassium Chloride Oral Tablet 20 MEQ 40 MEQ PO (01:47)
[2023-03-01 02:14] LABS: AST(SGOT) 17 U/L (15-37); Alanine Aminotransfer ALT/SGPT 23 U/L (13-56); Albumin, Serum 3.5 g/dL (3.2-5.0); Alkaline Phosphatase 79 U/L (45-117); Bilirubin, Direct 0.18 mg/dL (0.00-0.30); Globulin 3.7 g/dL (2.2-4.2); Magnesium 1.7 mg/dL (1.6-2.6); Protein, Total 7.2 g/dL (6.4-8.2)
[2023-03-01 02:42] LABS: HIV - WCH Non-Reactive (Nonreactive); Syphilis Antibodies Non-reactive
[2023-03-01] MEDS: DiphenhydrAMINE 50 MG/ML Syringe 25 MG IV ×2 (04:14→10:52)
[2023-03-01] MEDS: Lactated Ringers 1,000 ML 125 ML IV (04:16)
[2023-03-01] MEDS: 0.9% Saline Lock 10 ML Syringe IV ×2 (04:17→10:53)
--- NOTE | 2023-03-01 05:01 | EKG12_ITS ---
Test Reason : ADMISSION EKG Blood Pressure : / mmHG Vent. Rate : 073 BPM Atrial Rate : 073 BPM P-R Int : 150 ms QRS Dur : 082 ms QT Int : 406 ms P-R-T Axes : 068 004 017 degrees QTc Int : 447 ms Normal sinus rhythm Normal ECG No previous ECGs available Confirmed by RACHELLE GONZÁLES ([id number]), editor map ARIANA NOEL ([id number]) on 03/09/2023 9:40:37 AM Referred By: EDGAR Confirmed By:RACHELLE GONZÁLES
[2023-03-01 06:15] LABS: Hepatitis B Surface Antibody Reactive; Hepatitis B Surface Antigen Non-Reactive (Nonreactive)
[2023-03-01 06:16] LABS: Hepatitis C Antibody REACTIVE (Nonreactive)
--- NOTE | 2023-03-01 06:38 | NURSING ---
Pt informs this RN that she needs paperwork filled out and sent to her [employer] airspace control officer, stating that she is admitted to [facility]. Pt provides information regarding her [employer]oc airspace control officer; email provided to reach her is [email or web address] and her phone number is [phone]. Pt also provides information on her immigration attorney, whom she states is with [employer]. His name is Nicolas and his number is [phone]. Mansoor
[2023-03-01 06:53] LABS: ALB/GLOB Ratio 0.9 RATIO (0.9-2.4); AST(SGOT) 16 U/L (15-37); Alanine Aminotransfer ALT/SGPT 20 U/L (13-56); Albumin, Serum 2.9 g/dL (3.2-5.0); Alkaline Phosphatase 70 U/L (45-117); Anion Gap 7 (5-15); BUN 10 mg/dL (7-18); BUN/Creat Ratio 13.5 RATIO (10-20); Calcium,Total 8.1 mg/dL (8.5-10.1); Chloride 113 mmol/L (98-107); Creatinine, Serum 0.74 mg/dL (0.55-1.02); EST Glomerular Filtration Rate 88 mL/min (>60); Est Glom Filt Rate - Afr Amer 107 mL/min (>60); Estimated Creatinine Clearance 85.14 ml/min; Globulin 3.2 g/dL (2.2-4.2); Glucose 114 mg/dL (74-106); Protein, Total 6.1 g/dL (6.4-8.2); Sodium Level 147 mmol/L (136-145)
[2023-03-01] MEDS: Acetaminophen 325 MG Tablet 650 MG PO (06:57)
[2023-03-01] MEDS: hydrOXYzine PAM 25 MG Capsule 50 MG PO (06:57)
[2023-03-01] MEDS: Methocarbamol 750 MG Tablet 1500 MG PO ×3 (06:57→21:46)
--- NOTE | 2023-03-01 07:59 | PCM.PN.HOSP ---
Reason for Visit Reason for Visit: Acute opiate withdrawal Subjective Subjective Ms. Troy is a 52-year-old white female with a history of opiate abuse who presented to the emergency department at [facility] on 03/01/2023 and acute opiate withdrawal. 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 She was recently incarcerated for about 2 weeks in January at which time she experienced withdrawal symptoms but unfortunately after release she started using again. Most recently she was utilizing intranasal Percocet and cocaine and she is doing this at least on a daily basis typically multiple times a day. Last use was at 10 PM on the day prior to admission. Withdrawal symptoms present on admission were restlessness and mild agitation. She denied any abdominal pain, cramping, body aches, rhinorrhea or piloerection upon presentation. She is interested in sobriety and work-up upon presentation was unremarkable other than a positive urine toxicology screen for MDMA and cocaine. Her test was unremarkable. Hepatitis and HIV were obtained. Hepatitis C antibody was reactive, hepatitis B antibody was reactive, HIV was nonreactive. Objective Data Objective Data Vital Signs: Vital Signs Temp Pulse Resp BP Pulse Ox O2 Del Method 97.5 F L 80 18 116/75 98 Room Air 03/01/23 07:00 03/01/23 07:00 03/01/23 07:00 03/01/23 07:00 03/01/23 07:00 03/01/23 07:00 Oxygen Delivery Method Room Air Weight: 67.1 kg Body Mass Index (BMI) 23.8 Lab / Micro Data 03/01/23 01:12 03/01/23 06:06 Labs: Laboratory Results - last 24 hr 03/01/23 01:02: Urine Opiates Screen NEGATIVE, Urine Methadone Screen NEGATIVE, Ur Barbiturates Screen NEGATIVE, Ur Phencyclidine Scrn NEGATIVE, Ur Amphetamines Screen NEGATIVE, MDMA (Ecstasy) Screen POSITIVE H, U Benzodiazepines Scrn NEGATIVE, Urine Cocaine Screen POSITIVE H, U Cannabinoids Screen NEGATIVE, Ur Drug Screen Comment 03/01/23 01:12: WBC 6.4, RBC 3.91 L, Hgb 11.2 L, Hct 35.1 L, MCV 89.8, MCH 28.6, MCHC 31.9 L, RDW Std Deviation 43.7, RDW Coeff of Caroline 13.4, Plt Count 321, MPV 9.2, Immature Gran % (Auto) 0.300, Neut % (Auto) 54.0, Lymph % (Auto) 32.7, [place] % (Auto) 7.2, Eos % (Auto) 4.9, Baso % (Auto) 0.9, Absolute Neuts (auto) 3.5, Absolute Lymphs (auto) 2.09, Nucleated RBC % 0, Sodium 145, Potassium 3.2 L, Chloride 110 H, Carbon Dioxide 31.0, Anion Gap 4 L, BUN 11, Creatinine 0.93, Estim Creat Clear Calc 65.12, Est GFR (MDRD) Af Amer 82, Est GFR (MDRD) Non-Af 67, BUN/Creatinine Ratio 11.8, Glucose 155 H, Calcium 9.0, Magnesium 1.7, Total Bilirubin 0.70, Direct Bilirubin 0.18, AST 17, ALT 23, Alkaline Phosphatase 79, Total Protein 7.2, Albumin 3.5, Globulin 3.7, Serum , Qual NEGATIVE, Ethyl Alcohol < 3.0, Syphilis Total Ab Non-reactive, Hep Bs Antigen Non-Reactive, Hep Bs Antibody Reactive, Hepatitis C Antibody REACTIVE, HIV 1&2 Antibody Non-Reactive 03/01/23 06:06: Sodium 147 H, Potassium 3.0 L, Chloride 113 H, Carbon Dioxide 27.0, Anion Gap 7, BUN 10, Creatinine 0.74, Estim Creat Clear Calc 85.14, Est GFR (MDRD) Af Amer 107, Est GFR (MDRD) Non-Af 88, BUN/Creatinine Ratio 13.5, Glucose 114 H, Calcium 8.1 L, Total Bilirubin 0.50, AST 16, ALT 20, Alkaline Phosphatase 70, Total Protein 6.1 L, Albumin 2.9 L, Globulin 3.2, Albumin/Globulin Ratio 0.9 Assessment & Plan Assessment/Plan (1) Opiate withdrawal: (2) Hypokalemia: (3) Hypernatremia: PLAN: Plan Acute opiate withdrawal -Continue Subutex per COWS protocol -Continue as needed medication for symptom management -Immune against hepatitis B -Hepatitis C antibody is positive -HIV is nonreactive -180 consultation Hypokalemia -Potassium remains low at 3.0 this morning -60 mill colons p.o. potassium -Repeat BMP in a.m. -Mag level was within normal limits at 1.7 Hypernatremia/hyperchloremia -We will give 1 L of half-normal saline -Repeat BMP in a.m. Hepatitis C infection -Hepatitis C antibody is positive -We will check hepatitis C viral load to ascertain whether or not she is cleared infection or is a chronic carrier -She would be a candidate for treatment if she can obtain sobriety and maintain this Hyperglycemia -Fasting blood sugar this morning is 114 -Hemoglobin A1c is pending -No history of diabetes Hypertension -Patient with documented history of hypertension and on amlodipine -Amlodipine held on admission and blood pressures are to be stable -Continue to monitor and restart if needed -Blood pressures may have been elevated previously due to cocaine however she was cocaine positive this time as well History of anemia secondary to iron deficiency -Hemoglobin on presentation was 11.2 -Continue home iron GERD -Continue home famotidine Allergic rhinitis -Restart home Singulair Anxiety/depression/bipolar disorder -Patient is not currently on any medications for her bipolar disorder -Continue citalopram DVT prophylaxis -Low risk -Encourage early and frequent ambulation
[2023-03-01 08:16] LABS: Hemoglobin A1c 5.3 % (3.8-5.6)
[2023-03-01] MEDS: Gabapentin 300 MG Capsule PO (09:22)
[2023-03-01] MEDS: 0.45% Normal Saline 1,000 ML 100 ML IV (09:23)
[2023-03-01] MEDS: Potassium Chloride Oral Tablet 20 MEQ 60 MEQ PO (09:23)
--- NOTE | 2023-03-01 10:22 | ADDICTION ---
This show card writer met with PT to conduct ASAM, MSE, AUDIT, DUDIT assessments and to plan for d/c. PT A+Ox4 and participated actively. All assessments completed and placed in PT's chart. PT plans to f/u with [facility] at [facility] for follow-up in patient treatment services on Wednesday. [facility] will transport to treatment.
[2023-03-01] MEDS: Famotidine 20 MG Tablet PO ×2 (10:53→21:46)
[2023-03-01] MEDS: Ferrous Sulfate 325 MG Tablet PO ×2 (10:53→17:08)
[2023-03-01] MEDS: Ibuprofen 600 MG Tablet PO ×2 (13:20→21:46)
--- NOTE | 2023-03-01 15:32 | CHAPLAIN ---
Type of Pastoral Visit ___ Initial Visit ___ Follow-up Visit ___ On-call Visit ___ General Patient Visit ___ Spiritual Assessment ___ Family Conference ___ Bereavement ___ Rapid Response ___ Code Blue ___ Other (describe below) Pastoral Care Referral From ___ Patient ___ Family ___ Nurse ___ Physician ___ Inspector Welded Parts ___ Credit Cashier ___ Other (describe below) Sacrament/Intervention ___ Active listening ___ Anointing ___ Jehovah'S Witness ___ Bereavement ___ Communion ___ Laura exploration ___ ___ Life review ___ Prayer ___ Reconciliation ___ Sacrament of Sick ___ Supportive presence ___ Wedding ___ Other (describe below) Pastoral Comments patient is sound asleep and does not awaken to her name; left a calling card
[2023-03-01] MEDS: Montelukast 10 MG Tablet PO (21:45)
[2023-03-02] MEDS: DiphenhydrAMINE 50 MG/ML Syringe 25 MG IV ×4 (02:52→21:28)
[2023-03-02 03:01] VITALS: BP 129/98; PULSE 63; RESP 15; TEMP 36.8; O2SAT 98
[2023-03-02] MEDS: Acetaminophen 325 MG Tablet 650 MG PO ×2 (03:01→08:16)
[2023-03-02] MEDS: Ibuprofen 600 MG Tablet PO ×2 (05:16→14:41)
[2023-03-02 07:10] VITALS: O2SAT 96
[2023-03-02 07:14] LABS: Anion Gap 4 (5-15); BUN 7 mg/dL (7-18); BUN/Creat Ratio 9.2 RATIO (10-20); Calcium,Total 8.1 mg/dL (8.5-10.1); Chloride 117 mmol/L (98-107); Creatinine, Serum 0.76 mg/dL (0.55-1.02); EST Glomerular Filtration Rate 86 mL/min (>60); Est Glom Filt Rate - Afr Amer 104 mL/min (>60); Glucose 106 mg/dL (74-106); Sodium Level 143 mmol/L (136-145)
[2023-03-02 07:59] VITALS: BP 126/81; PULSE 70; RESP 16; TEMP 36.7; O2SAT 99
[2023-03-02] MEDS: Ondansetron 8 MG Tablet PO (08:17)
[2023-03-02] MEDS: Ferrous Sulfate 325 MG Tablet PO ×2 (08:17→16:29)
[2023-03-02] MEDS: Famotidine 20 MG Tablet PO ×2 (08:17→21:14)
[2023-03-02] MEDS: cloNIDine HCl 0.1 MG Tablet PO ×2 (08:17→16:29)
[2023-03-02] MEDS: Dicyclomine 10 MG Capsule 20 MG PO (08:17)
[2023-03-02] MEDS: hydrOXYzine PAM 25 MG Capsule 50 MG PO ×2 (08:17→14:41)
[2023-03-02] MEDS: Methocarbamol 750 MG Tablet 1500 MG PO ×3 (09:04→21:28)
[2023-03-02] MEDS: Buprenorphine HCl 2 MG TAB.SUBL SL ×3 (09:04→23:21)
[2023-03-02] MEDS: 0.9% Saline Lock 10 ML Syringe IV (09:05)
[2023-03-02] MEDS: Gabapentin 600 MG Tablet PO (11:44)
--- NOTE | 2023-03-02 12:40 | PN.HOSP_ITS ---
Reason for Visit Reason for Visit: Opiate detox Subjective Subjective Patient complaining of lower extremity cramping and pain. Has not yet tried gabapentin so we will try one 600 mg dose. Denies any nausea vomiting or diarrhea. Is aware the plan is for discharge tomorrow to inpatient at 180 and she states she feels that she will be ready. Objective Data Objective Data Vital Signs: Vital Signs Temp Pulse Resp BP Pulse Ox O2 Del Method 98.1 F 70 16 126/81 H 99 Room Air 03/02/23 07:59 03/02/23 07:59 03/02/23 07:59 03/02/23 07:59 03/02/23 07:59 03/02/23 08:00 Oxygen Delivery Method Room Air Weight: 67.1 kg Body Mass Index (BMI) 23.8 Intake & Output: Intake and Output for Last 24 Hours 02/28/23 03/01/23 03/02/23 23:59 23:59 23:59 Intake Total 959.58 / 959.58 1000 / 1000 Output Total 0 / 0 Balance 959.58 / 959.58 1000 / 1000 Lab / Micro Data 03/01/23 01:12 03/02/23 06:27 Labs: Laboratory Results - last 24 hr 03/02/23 06:27: Sodium 143, Potassium 4.0, Chloride 117 H, Carbon Dioxide 22.0, Anion Gap 4 L, BUN 7, Creatinine 0.76, Estim Creat Clear Calc 82.90, Est GFR (MDRD) Af Amer 104, Est GFR (MDRD) Non-Af 86, BUN/Creatinine Ratio 9.2 L, Glucose 106, Calcium 8.1 L Physical Exam Const alert, oriented x3, no apparent distress, average body habitus and well nourished Constitutional Narrative: Middle-aged, -[place] female, sitting up in bed watching television, appears comfortable nontoxic HEENT head/scalp atraumatic and moist oral mucous membranes Head and Scalp: normocephalic Extremity no clubbing, cyanosis or edema Extremity Narrative: Pedal pulses are 2+ Psych affect normal Psych Narrative: Eye contact is good, patient interacts appropriately Assessment & Plan Assessment/Plan (1) Hypernatremia: (2) Opiate withdrawal: (3) Hypokalemia: PLAN: Plan Acute opiate withdrawal -Continue Subutex per COWS protocol -Continue as needed medication for symptom management -Immune against hepatitis B -Hepatitis C antibody is positive -HIV is nonreactive -180 has evaluated the patient and plan is for discharge to [facility] inpatient rehab on 03/03/2023 Hypokalemia -Resolved Hypernatremia/hyperchloremia -Resolved Hepatitis C infection -Hepatitis C antibody is positive -We will check hepatitis C viral load to ascertain whether or not she is cleared infection or is a chronic carrier -She would be a candidate for treatment if she can obtain sobriety and maintain this Hyperglycemia -Fasting blood sugar this morning is 114 -A1c is 5.3 therefore patient is not diabetic -No history of diabetes Hypertension -Patient with documented history of hypertension and on amlodipine -Amlodipine held on admission and blood pressures remained stable however do appear to be creeping up some we will continue to monitor and add back am lodipine if required at discharge -Continue to monitor and restart if needed -Blood pressures may have been elevated previously due to cocaine however she was cocaine positive this time as well History of anemia secondary to iron deficiency -Hemoglobin on presentation was 11.2 -Continue home iron GERD -Continue home famotidine Allergic rhinitis -Continue home Singulair Anxiety/depression/bipolar disorder -Patient is not currently on any medications for her bipolar disorder -Continue citalopram DVT prophylaxis -Low risk -Encourage early and frequent ambulation Charges/Coding Visit Charges Inpatient E&M: 43118 [facility] L1
--- NOTE | 2023-03-02 12:49 | CHAPLAIN ---
Type of Pastoral Visit _x__ Initial Visit ___ Follow-up Visit ___ On-call Visit ___ General Patient Visit ___ Spiritual Assessment ___ Family Conference ___ Bereavement ___ Rapid Response ___ Code Blue ___ Other (describe below) Pastoral Care Referral From _x__ Patient ___ Family ___ Nurse ___ Physician ___ Sushi Chef ___ Access Representative ___ Other (describe below) Sacrament/Intervention _x__ Active listening ___ Anointing ___ Mormon ___ Bereavement ___ Communion ___ Laura exploration ___ ___ Life review _x__ Prayer ___ Reconciliation ___ Sacrament of Sick _x__ Supportive presence ___ Wedding ___ Other (describe below) Pastoral Comments patient stated that she was willing to have a prayer said; after prayer she was more talkative about her need and her fears; visit was still brief but there was an acknowledgement from patient of her appreciation for support offered; pt stated that she has some support for recovery but still has so much going on in my life right now;
[2023-03-02 14:32] VITALS: BP 115/88; PULSE 70; RESP 18; TEMP 36.5; O2SAT 100
[2023-03-02] MEDS: Topiramate 50 MG Tablet PO (14:36)
[2023-03-02 16:15] VITALS: BP 120/87; PULSE 77; RESP 18; TEMP 36.4; O2SAT 100
[2023-03-02 20:00] VITALS: BP 112/79; PULSE 77; RESP 18; TEMP 36.5; O2SAT 100
[2023-03-02] MEDS: Montelukast 10 MG Tablet PO (21:14)
[2023-03-03 02:30] VITALS: BP 115/83; PULSE 69; RESP 17; TEMP 36.6; O2SAT 99
[2023-03-03] MEDS: DiphenhydrAMINE 50 MG/ML Syringe 25 MG IV (03:35)
[2023-03-03] MEDS: Methocarbamol 750 MG Tablet 1500 MG PO (03:41)
[2023-03-03] MEDS: Topiramate 50 MG Tablet PO (03:54)
[2023-03-03 07:06] VITALS: O2SAT 96
[2023-03-03 08:00] VITALS: BP 116/71; PULSE 74; RESP 18; TEMP 36.2; O2SAT 100
[2023-03-03] MEDS: Acetaminophen 325 MG Tablet 650 MG PO (08:32)
[2023-03-03] MEDS: Buprenorphine HCl 2 MG TAB.SUBL SL (08:33)
[2023-03-03] MEDS: Ferrous Sulfate 325 MG Tablet PO (08:38)
[2023-03-03] MEDS: Famotidine 20 MG Tablet PO (08:38)
--- NOTE | 2023-03-03 10:58 | PCM.DC.SUM ---
Providers Date of Admission: 03/01/23 Date of Discharge: 03/03/23 Primary Care Physician: Dr. Shira Rider MD Reason For Visit: OPIATE WITHDRAWL Diagnosis Discharge Diagnosis (1) Hypernatremia: Status: Acute Code(s): E87.0 - Hyperosmolality and hypernatremia (2) Opiate withdrawal: Status: Acute Code(s): F11.93 - Opioid use, unspecified with withdrawal (3) Hypokalemia: Status: Acute Code(s): E87.6 - Hypokalemia Medications at Discharge Home Medications citalopram 40 mg tablet 60 mg PO DAILY ANXIETY/DEPRESSION 03/05/19 hydroxyzine pamoate 50 mg capsule 50 mg PO DAILY ANXIETY 03/05/19 ranitidine HCl 150 mg tablet 150 mg PO DAILY PRN MIGRAINE 03/05/19 ferrous sulfate 325 mg (65 mg iron) tablet 325 mg PO BID ANEMIA 03/11/19 topiramate 25 mg tablet 50 mg PO BID PRN PRN Headache 03/11/19 famotidine 40 mg tablet 40 mg PO QHS ACID REFLUX 03/01/23 montelukast 10 mg tablet 10 mg PO QHS ALLERGIES 03/01/23 Hospital Course Operations None Procedures None Summary of Care Provided Minutes Spent on Discharge: 22 Hospital Course: Ms. Troy is a 52-year-old white female with a history of opiate abuse who presented to the emergency department at [facility] on 03/01/2023 for acute opiate withdrawal. 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 She was recently incarcerated for about 2 weeks in January at which time she experienced withdrawal symptoms, but unfortunately after release she started using again. Most recently she was utilizing intranasal Percocet and cocaine and she had been doing this at least on a daily basis typically multiple times a day. Last use was at 10 PM on the day prior to admission. Withdrawal symptoms present on admission were restlessness and mild agitation. She denied any abdominal pain, cramping, body aches, rhinorrhea or piloerection upon presentation. She is interested in sobriety and work-up upon presentation was unremarkable other than a positive urine toxicology screen for MDMA and cocaine. Her test was unremarkable. Hepatitis and HIV were obtained. Hepatitis C antibody was reactive, hepatitis B antibody was reactive, HIV was nonreactive. Patient reports she has been treated for hepatitis C previously. She was admitted and placed on a Subutex taper. Supportive medications were utilized for symptom management. She was seen by addiction medicine and plan for discharge to inpatient rehab facility on 03/03/2023 was set up. Patient had an overall uncomplicated detox and was able to be discharged in stable condition on 03/03/2023. Discharge diagnoses: Acute opiate withdrawal-resolved Polysubstance abuse Hypokalemia-resolved Hypernatremia/hyperchloremia-resolved History of hepatitis C infection status posttreatment Hypertension History of anemia secondary to iron deficiency GERD Allergic rhinitis Anxiety Depression Bipolar disorder Physical Exam Const alert, oriented x3, no apparent distress, average body habitus and well nourished Constitutional Narrative: Middle-aged, -Trist[place] female, sitting up in bed watching television, appears comfortable nontoxic General Appearance: cooperative, comfortable, well kempt and well developed Orientation / Consciousness: awake, oriented to person, oriented to place and oriented to time HEENT normocephalic, head/scalp atraumatic and moist oral mucous membranes Resp normal respiratory effort, no retractions, no use of accessory muscles and clear to auscultation bilaterally Auscultation: Negative for rales, rhonchi or wheezes Cardio regular rate, regular rhythm, S1 normal heart sound, S2 normal heart sound, no murmurs, no rub, no gallops and no clicks GI normal to inspection, nondistended, normoactive bowel sounds, soft to palpation and non-tender Extremity no clubbing, cyanosis or edema Extremity Narrative: Pedal pulses are 2+ Neuro oriented x3, moves all extremities and no focal motor deficits Speech: speech normal Psych affect normal Psych Narrative: Eye contact is good, patient interacts appropriately Weight / BMI Weight Weight: 67.1 kg Body Mass Index (BMI) 23.8 ABG / Lab / Microbiology Data 03/01/23 01:12 03/02/23 06:27 Laboratory: Laboratory Results - last 24 hr 03/01/23 01:12: Miscellaneous Test D/C Instructions Discharge Diet: No restrictions Discharge Activity: Return to Normal Activity Meaningful Use Info Meaningful Use Diagnoses (Choose all that apply): None applicable Discharge Plan Admission Admit Date/Time: 03/01/23 01:47 Primary Reason for Your Visit: Opiate detox Attending Provider: Taylor Alarcon Primary Care Provider: Shira Rider Consulting Providers: Kristen Caraballo Discharge Orders/Prescriptions Prescriptions: Continued citalopram 40 MG tablet 60 mg PO DAILY hydroxyzine pamoate 50 MG capsule 50 mg PO DAILY ranitidine HCl 150 MG tablet 150 mg PO DAILY PRN (Reason: MIGRAINE) topiramate 25 MG tablet 50 mg PO BID PRN PRN (Reason: Headache) Patient Comments: TAKE 1 TABLET once EVERY NIGHT FOR 1 WEEK then TAKE 1 TABLET TWICE DAILY FOR 1 WEEK then start 50 MG TABLETS ferrous sulfate 325 MG tablet 325 mg PO BID Patient Comments: TAKE 1 TABLET TWICE DAILY famotidine 40 mg tablet 40 mg PO QHS Patient Comments: TAKE 1 TABLET BY MOUTH EVERY EVENING montelukast 10 mg tablet 10 mg PO QHS Patient Comments: TAKE 1 TABLET BY MOUTH EVERY NIGHT Discontinued amlodipine 5 MG tablet 5 mg PO DAILY Referrals / Follow Up: Shira Rider MD [Primary Care Provider] - Within 1 Month [facility] Doctor,Out of [Non-Staff] - Disposition Disposition (needs filled in before D/C Order can be placed): Inpatient Rehab Unit/Facility Charges/Coding Visit Charges Inpatient E&M: 99794 Disch Hosp
[2023-03-03 11:00] VITALS: BP 116/71; PULSE 74; RESP 18; TEMP 36.5; O2SAT 100
--- NOTE | 2023-03-03 11:27 | NURSING ---
patient discharged to rehab per orders.
--- NOTE | 2023-03-03 11:37 | PHA.DC.MR.R ---
Pharmacy [place] Med Reconciliation Pharmacy Service has performed discharge medication reconciliation for this patient. The patient's discharge medication list was reviewed for discrepancies and discrepancies were resolved. Medications at Discharge Home Medications citalopram 40 mg tablet 60 mg PO DAILY ANXIETY/DEPRESSION 03/05/19 hydroxyzine pamoate 50 mg capsule 50 mg PO DAILY ANXIETY 03/05/19 ranitidine HCl 150 mg tablet 150 mg PO DAILY PRN MIGRAINE 03/05/19 ferrous sulfate 325 mg (65 mg iron) tablet 325 mg PO BID ANEMIA 03/11/19 topiramate 25 mg tablet 50 mg PO BID PRN PRN Headache 03/11/19 famotidine 40 mg tablet 40 mg PO QHS ACID REFLUX 03/01/23 montelukast 10 mg tablet 10 mg PO QHS ALLERGIES 03/01/23
== END 2023-03-03 11:28 ==
LOC: ED 01:41 → PCU 06:47
PROVIDERS: Admitting Provider Family Medicine; Emergency Provider Emergency Medicine; PCP Family Medicine; Visit Provider Internal Medicine
DX: F11.23 Opioid dependence with withdrawal (principal); F31.9 Bipolar disorder, unspecified; E11.65 Type 2 diabetes mellitus with hyperglycemia; E87.0 Hyperosmolality and hypernatremia; D50.9 Iron deficiency anemia, unspecified; B19.20 Unspecified viral hepatitis C without hepatic coma; E87.8 Other disorders of electrolyte and fluid balance, not elsewhere classified; I10 Essential (primary) hypertension; E87.6 Hypokalemia; K21.9 Gastro-esophageal reflux disease without esophagitis; F14.90 Cocaine use, unspecified, uncomplicated; F41.9 Anxiety disorder, unspecified; Z79.899 Other long term (current) drug therapy
CPT/HCPCS: 87522; 36415; 80048; 80053; 80076; 80307; 82077; 83036; 83735; 84703; 85025; 86703; 86706; 86780; 86803; 87340; 93005; 97802; 99283; H0012; J7120; A4216

== ENCOUNTER 2025-01-25 19:42 | Inpatient (IN) | payer MEDICAID, SELFPAY ==
[2025-01-25 19:43] VITALS: BP 110/76; PULSE 57; RESP 16; TEMP 36.2; O2SAT 99; BMI 25.6
--- NOTE | 2025-01-25 20:10 | EX.ED.SAOD ---
HPI History of Present Illness Chief Complaint: Substance Abuse Detail of Chief Complaint: Opiate addiction Informant: patient Onset/Context/Timing Onset: Month(s) Context: Sudden Onset Timing: Continuous Quality: Takes fatty's . Patient states these are Percocet tablets Current Severity: Moderate Maximum Severity: Moderate Worsened by: States her daughter is using her granddaughters upon Relieved by: Nothing Associated Symptoms Associated Symptoms: Positive for change in mental status and no; Negative for vomiting*, diarrhea*, fever*, rash*, seizure, tremor, palpatations, trauma, sex for drugs*, suicidal ideation or homicidal ideation Narrative Narrative: Patient is a 54-year-old woman. She was in [facility] detox program 2022. She was clean until the beginning of this year. She states her daughter is using her granddaughters upon. She began using again. She currently using fatty's . Patient does vape. She denies any other drug use. She states when she was younger she used marijuana. 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 She denies any other drug use. She denies alcohol use. Prior similar symptoms: Yes Recent Illness/Hospitalization: No PFSH [facility] Medical History Hepatitis C infection Noncompliance with medication regimen History of bipolar disorder Polysubstance dependence IV drug abuse Bipolar disorder Iron deficiency anemia Chronic anemia Overweight Allergic rhinitis Polysubstance abuse Anxiety and depression GERD (gastroesophageal reflux disease) Home Medications ?Medication ?Instructions ?Recorded ?Last Taken ?Type citalopram 40 mg tablet 60 mg PO DAILY ANXIETY/DEPRESSION 03/05/19 03/11/19 History hydroxyzine pamoate 50 mg capsule 50 mg PO DAILY ANXIETY 03/05/19 03/11/19 History ranitidine HCl 150 mg tablet 150 mg PO DAILY PRN MIGRAINE 03/05/19 03/11/19 History ferrous sulfate 325 mg (65 mg 325 mg PO BID ANEMIA 03/11/19 03/11/19 History iron) tablet topiramate 25 mg tablet 50 mg PO BID PRN PRN Headache 03/11/19 Unknown History famotidine 40 mg tablet 40 mg PO QHS ACID REFLUX 03/01/23 Unknown History montelukast 10 mg tablet 10 mg PO QHS ALLERGIES 03/01/23 Unknown History Allergy/AdvReac Type Severity Reaction Status Date / Time codeine Allergy Itching Verified 01/25/25 19:43 doxycycline Allergy Itching Verified 01/25/25 19:43 latex Allergy Rash Verified 01/25/25 19:43 Penicillins (cillins) Allergy Swelling Verified 01/25/25 19:43 sulfamethoxazole (From Allergy Rash Verified 01/25/25 19:43 Bactrim) trimethoprim (From Bactrim) Allergy Rash Verified 01/25/25 19:43 naproxen AdvReac Upset Verified 01/25/25 19:43 Stomach NSAIDS (Non-Steroidal AdvReac Upset Verified 01/25/25 19:43 Anti-Inflamma Stomach Family History Mother Diabetes Hypertension Rheumatoid arthritis Father Diabetes Cancer Hypertension Surgical History History of tubal ligation Hx of cholecystectomy Social History household members: other details: Her 18 year old daughter lives with her. Smoking Status: Current every day smoker tobacco type: e-cigarettes alcohol intake: never substance use type: crack/cocaine, heroin, opiates and IV drugs ROS ROS ED Constitutional Constitutional ED: Denies chills, fever(s), subjective, sweats or weight loss Eyes Eyes: Denies blurry vision, change in vision or diplopia ENT ENT ED: Denies ear pain, rhinorrhea or sore throat Cardiovascular Cardiovascular: Denies chest pain or palpitations Respiratory/Chest Respiratory/Chest: Denies cough, dyspnea or dyspnea on exertion Gastrointestinal Gastrointestinal: Denies abdominal pain, diarrhea, nausea or vomiting Genitourinary Genitourinary ED: Denies dysuria or urinary frequency Musculoskeletal Musculoskeletal: Denies arthralgias or myalgias Integumentary Denies rash Neurologic Neurologic: Denies headache(s), paresthesias or weakness Psychiatric Psychiatric: Reports other Details: Patient is giddy. Patient needs to be redirected. ; Denies anxiety or depression Endocrine Endocrinology: Denies cold intolerance or heat intolerance Hematologic/Lymphatic Hematologic/Lymphatic: Denies easy bleeding or easy bruising EXAM Physical Exam Const Vital Signs: 01/25/25 19:43 01/25/25 20:43 01/25/25 21:00 Temperature 97.2 F L Temperature Source Temporal Pulse Rate 57 L 52 L 50 L Respiratory Rate 16 12 12 Blood Pressure 110/76 101/72 101/72 Blood Pressure Mean 87 81 81 Pulse Ox 99 97 97 Oxygen Delivery Method Room Air Room Air Room Air Positive well nourished and well developed General Appearance ED: well developed and NAD; Negative for pallor HEENT Reports TM's clear and moist mucous membranes atraumatic; Negative for tenderness Tympanic Membrane ED: Yes TM's clear Eyes PERRL and EOMs intact bilaterally General Eye ED: Negative for pale conjunctiva or scleral icterus Neck no lymphadenopathy, supple and no JVD Chest Wall inspection of chest normal and palpation of chest normal Resp normal respiratory effort and clear to auscultation bilaterally Cardio regular rate, regular rhythm, S1 normal heart sound, S2 normal heart sound and no murmurs GI soft to palpation, non-tender, non-distended and no masses Back/Spine no CVA tenderness Extremity Extremity Narrative: There is no clubbing or cyanosis. There is no [place] of recent self injury. There is no evidence of cellulitis or abscess. Neuro oriented x3, CN's II-XII intact bilaterally and no sensory deficits noted Sally Coma Scale: document GCS findings Spontaneous Obeys Commands Oriented 15 Sensorium / Orientation: alert Motor Exam: strength 5/5 throughout Psych Psych Narrative: Patient is giddy. She appears inebriated. Skin General Skin Exam: Negative for jaundice or pallor Lesions: no lesions Rashes: no rashes MDM MDM MDM Narrative Medical decision making narrative: Patient reports opiate use. ED addiction medicine protocol was entered. Patient's hospitalization from February [address] Alarcon's discharge summary was noted. Lab Data Attestation: I reviewed the patient's lab results. Lab results narrative: CBC reveals mild anemia. Comprehensive metabolic panel reveals slight elevation in glucose of 143. Serum test is negative. Tox was positive for presumptive opiates, fentanyl and cocaine. Alcohol was nondetected. Labs: Laboratory Results - last 24 hr 01/25/25 01/25/25 20:20 20:26 WBC 5.8 RBC 3.85 L Hgb 11.2 L Hct 33.8 L MCV 87.8 MCH 29.1 MCHC 33.1 RDW Std Deviation 40.5 RDW Coeff of Caroline 12.6 Plt Count 306 MPV 9.4 Immature Gran % (Auto) 0.300 Neut % (Auto) 54.6 Lymph % (Auto) 31.9 [place] % (Auto) 5.3 Eos % (Auto) 7.2 H Baso % (Auto) 0.7 Absolute Neuts (auto) 3.2 Absolute Lymphs (auto) 1.86 Nucleated RBC % 0 Sodium 142 Potassium 4.0 Chloride 109 H Carbon Dioxide 21.8 Anion Gap 11 BUN 13 Creatinine 0.88 Estim Creat Clear Calc 76.00 Est GFR (MDRD) Non-Af 79 BUN/Creatinine Ratio 15.0 Glucose 143 H Calcium 9.0 Total Bilirubin 0.35 AST 21 ALT 19 Alkaline Phosphatase 83 Total Protein 6.9 Albumin 4.0 Globulin 3.0 Albumin/Globulin Ratio 1.3 Serum , Qual NEGATIVE Urine Opiates Screen PRESUMPTIVE POSITIVE U Buprenorphine Qual NEGATIVE Ur Oxycodone Screen NEGATIVE Urine Methadone Screen NEGATIVE Urine Fentanyl Screen PRESUMPTIVE POSITIVE Ur Barbiturates Screen NEGATIVE Ur Phencyclidine Scrn NEGATIVE Ur Amphetamines Screen NEGATIVE U Benzodiazepines Scrn NEGATIVE Urine Cocaine Screen PRESUMPTIVE POSITIVE U Cannabinoids Screen NEGATIVE Ethyl Alcohol < 10.1 Management Discussion w/another healthcare provider: Hospitalist (Hospitalist was paged to admit for opiate dependence and use.) Discharge Plan Triage Chief Complaint: Substance Abuse ED Provider: Abdoul Morales Dx/Rx/DC Orders Clinical Impression: Opiate dependence, Cocaine abuse, Opiate abuse, continuous, Depression Prescriptions: No Action citalopram 40 MG tablet 60 mg PO DAILY hydroxyzine pamoate 50 MG capsule 50 mg PO DAILY ranitidine HCl 150 MG tablet 150 mg PO DAILY PRN (Reason: MIGRAINE) topiramate 25 MG tablet 50 mg PO BID PRN PRN (Reason: Headache) Patient Comments: TAKE 1 TABLET once EVERY NIGHT FOR 1 WEEK then TAKE 1 TABLET TWICE DAILY FOR 1 WEEK then start 50 MG TABLETS ferrous sulfate 325 MG tablet 325 mg PO BID Patient Comments: TAKE 1 TABLET TWICE DAILY famotidine 40 mg tablet 40 mg PO QHS Patient Comments: TAKE 1 TABLET BY MOUTH EVERY EVENING montelukast 10 mg tablet 10 mg PO QHS Patient Comments: TAKE 1 TABLET BY MOUTH EVERY NIGHT Primary Care Provider: Ida Thakkar Referrals: Ida Thakkar MD [Primary Care Provider] - Print Language: Lebanese
[2025-01-25 20:43] VITALS: BP 101/72; PULSE 52; RESP 12; O2SAT 97
[2025-01-25 20:43] LABS: Hematocrit 33.8 % (37-47); Hemoglobin 11.2 g/dL (12.0-15.0); Immature Granulocytes Count 0.020 X10^3/uL (0.0-0.0); Mean Corp Hgb Conc 33.1 g/dL (32-36); Mean Corpuscular Volume 87.8 fL (81-99); Mean Platelet Vol. 9.4 fl (6.2-12.0); NRBC Flagged by Analyzer 0 % (0-5); Platelet Count 306 K/mm3 (150-450); RBC Distribution Width CV 12.6 % (11.6-14.6); RBC Distribution Width SD 40.5 fl (35.1-43.9); Red Blood Count 3.85 M/mm3 (4.2-5.4); White Blood Count 5.8 K/mm3 (4.4-11.0)
[2025-01-25 21:00] VITALS: BP 101/72; PULSE 50; RESP 12; O2SAT 97
[2025-01-25 21:16] LABS: AST(SGOT) 21 U/L (<=31); Alanine Aminotransfer ALT/SGPT 19 U/L (<=34); Albumin, Serum 4.0 g/dL (3.5-5.0); Alkaline Phosphatase 83 U/L (35-104); Anion Gap 11 (5-15); BUN 13 mg/dL (4-19); BUN/Creat Ratio 15.0 RATIO (10-20); Calcium,Total 9.0 mg/dL (7.6-11.0); Carbon Dioxide 21.8 mmol/L (21.0-32.0); Chloride 109 mmol/L (98-108); Estimated Creatinine Clearance 76.00 ml/min (50-250); Globulin 3.0 g/dL (2.2-4.2); Glucose 143 mg/dL (70-99); Potassium 4.0 mmol/L (3.3-5.1)
[2025-01-25 21:23] LABS: Barbiturate Urine NEGATIVE (< 200 ng/mL); Benzodiazepine Urine NEGATIVE (< 200 ng/mL); PCP Urine NEGATIVE (< 25 ng/mL); THC Urine NEGATIVE (< 50 ng/mL)
[2025-01-25 21:33] LABS: Internal QC Validated? YES +Cl - CLEAR BKGD; Pregnancy, Serum, hCG Quali. NEGATIVE Negative; Record Kit Lot#, Serum Preg. 0000947241
[2025-01-25 21:34] LABS: Alcohol, Blood (Medical)-Serum < 10.1 mg/dL (<=10.0)
[2025-01-25 22:00] VITALS: BP 99/68; PULSE 12; RESP 50; O2SAT 100
[2025-01-25 22:02] VITALS: BP 99/68; PULSE 50; RESP 12; TEMP 36.4; O2SAT 100
--- NOTE | 2025-01-25 22:03 | PCM.HP.STD ---
HPI - General General Date of Admission: 01/25/25 Date of Service: 01/25/25 Chief Complaint: Opiate detox HPI Narrative GILBERT HEDRICK, is a 54 F who presented to [facility] ED on 01/25/2025 desiring opiate detox. Patient last went through opiate detox here in 2022. She was clean until the beginning of this year when she began using her family member's Percocet. She currently vapes tobacco as well. Denies other drug use and denies alcohol use. In the ED she was noted to be actively high on opiates. Sinus bradycardia to the 50s and borderline hypotension to the low 100s systolic, otherwise satting in the high 90s on room air at rest. CBC and CMP were benign. Urine tox screen presented positive for opiates, fentanyl and cocaine. Alcohol level negative. Given desire for opiate detox, hospitalist was contacted for admission. I saw the patient at bedside in the ED. Patient remained actively high, was lethargic and somewhat somnolent. She did make appropriate eye contact but her speech was slowed and she was not answering all questions appropriately. She denies any acute pain or discomfort. Will be admitted for further management. [facility] Medical History Hepatitis C infection Noncompliance with medication regimen History of bipolar disorder Polysubstance dependence IV drug abuse Bipolar disorder Iron deficiency anemia Chronic anemia Overweight Allergic rhinitis Polysubstance abuse Anxiety and depression GERD (gastroesophageal reflux disease) Home Medications ?Medication ?Instructions ?Recorded ?Last Taken ?Type citalopram 40 mg tablet 60 mg PO DAILY ANXIETY/DEPRESSION 03/05/19 03/11/19 History hydroxyzine pamoate 50 mg capsule 50 mg PO DAILY ANXIETY 03/05/19 03/11/19 History ranitidine HCl 150 mg tablet 150 mg PO DAILY PRN MIGRAINE 03/05/19 03/11/19 History ferrous sulfate 325 mg (65 mg 325 mg PO BID ANEMIA 03/11/19 03/11/19 History iron) tablet topiramate 25 mg tablet 50 mg PO BID PRN PRN Headache 03/11/19 Unknown History famotidine 40 mg tablet 40 mg PO QHS ACID REFLUX 03/01/23 Unknown History montelukast 10 mg tablet 10 mg PO QHS ALLERGIES 03/01/23 Unknown History Allergy/AdvReac Type Severity Reaction Status Date / Time codeine Allergy Itching Verified 01/25/25 19:43 doxycycline Allergy Itching Verified 01/25/25 19:43 latex Allergy Rash Verified 01/25/25 19:43 Penicillins (cillins) Allergy Swelling Verified 01/25/25 19:43 sulfamethoxazole (From Allergy Rash Verified 01/25/25 19:43 Bactrim) trimethoprim (From Bactrim) Allergy Rash Verified 01/25/25 19:43 naproxen AdvReac Upset Verified 01/25/25 19:43 Stomach NSAIDS (Non-Steroidal AdvReac Upset Verified 01/25/25 19:43 Anti-Inflamma Stomach Family History Mother Diabetes Hypertension Rheumatoid arthritis Father Diabetes Cancer Hypertension Surgical History History of tubal ligation Hx of cholecystectomy Social History household members: other details: Her 18 year old daughter lives with her. Smoking Status: Current every day smoker tobacco type: e-cigarettes alcohol intake: never substance use type: crack/cocaine, heroin, opiates and IV drugs ROS Constitutional Constitutional: Denies chills, fatigue, fever(s) or weakness Cardiovascular Cardiovascular: Denies chest pain Respiratory/Chest Respiratory/Chest: Denies shortness of breath at rest Gastrointestinal Gastrointestinal: Denies abdominal pain Vital Signs Vital Signs Vital Signs: 01/25/25 19:43 01/25/25 20:43 01/25/25 21:00 Temperature 97.2 F L Temperature Source Temporal Pulse Rate 57 L 52 L 50 L Respiratory Rate 16 12 12 Blood Pressure 110/76 101/72 101/72 Blood Pressure Mean 87 81 81 Pulse Ox 99 97 97 Oxygen Delivery Method Room Air Room Air Room Air 01/25/25 22:00 01/25/25 22:02 Temperature 97.6 F L Temperature Source Pulse Rate 12 L 50 L Respiratory Rate 50 H 12 Blood Pressure 99/68 99/68 Blood Pressure Mean 78 78 Pulse Ox 100 100 Oxygen Delivery Method Room Air Weight Weight: 72 kg Body Mass Index (BMI) 25.6 Physical Exam Const alert, no apparent distress and average body habitus Constitutional Narrative: Middle-aged female, actively high on opiates, lethargic and somewhat somnolent appearing but was alert and making appropriate eye contact, sitting back comfortably in bed, in no acute distress. General Appearance: cooperative and comfortable Orientation / Consciousness: lethargic HEENT normocephalic, head/scalp atraumatic, hearing grossly normal bilaterally, nasal mucous membranes and turbinates normal and moist oral mucous membranes Eyes PERRL, EOMs intact bilaterally and conjunctivae normal Neck full ROM Chest inspection of chest normal Resp normal respiratory effort, normal air movement, no use of accessory muscles and clear to auscultation bilaterally Cardio no murmurs and peripheral pulses 2+ throughout Cardio Narrative: Bradycardic, regular rhythm. GI normal to inspection, nondistended, normoactive bowel sounds, soft to palpation, non-tender and non-distended Back/Spine normal ROM Extremity normal to inspection, full ROM and no pedal edema Skin no rashes or lesions noted Results Lab / Micro Data 01/25/25 20:26 01/25/25 20:26 Labs: Laboratory Results - last 24 hr 01/25/25 20:20: Urine Opiates Screen PRESUMPTIVE POSITIVE, U Buprenorphine Qual NEGATIVE, Ur Oxycodone Screen NEGATIVE, Urine Methadone Screen NEGATIVE, Urine Fentanyl Screen PRESUMPTIVE POSITIVE, Ur Barbiturates Screen NEGATIVE, Ur Phencyclidine Scrn NEGATIVE, Ur Amphetamines Screen NEGATIVE, U Benzodiazepines Scrn NEGATIVE, Urine Cocaine Screen PRESUMPTIVE POSITIVE, U Cannabinoids Screen NEGATIVE 01/25/25 20:26: WBC 5.8, RBC 3.85 L, Hgb 11.2 L, Hct 33.8 L, MCV 87.8, MCH 29.1, MCHC 33.1, RDW Std Deviation 40.5, RDW Coeff of Caroline 12.6, Plt Count 306, MPV 9.4, Immature Gran % (Auto) 0.300, Neut % (Auto) 54.6, Lymph % (Auto) 31.9, Wilkin % (Auto) 5.3, Eos % (Auto) 7.2 H, Baso % (Auto) 0.7, Absolute Neuts (auto) 3.2, Absolute Lymphs (auto) 1.86, Nucleated RBC % 0, Sodium 142, Potassium 4.0, Chloride 109 H, Carbon Dioxide 21.8, Anion Gap 11, BUN 13, Creatinine 0.88, Estim Creat Clear Calc 76.00, Est GFR (MDRD) Non-Af 79, BUN/Creatinine Ratio 15.0, Glucose 143 H, Calcium 9.0, Total Bilirubin 0.35, AST 21, ALT 19, Alkaline Phosphatase 83, Total Protein 6.9, Albumin 4.0, Globulin 3.0, Albumin/Globulin Ratio 1.3, Serum , Qual NEGATIVE, Ethyl Alcohol < 10.1 Assessment & Plan Assessment/Plan (1) Opiate abuse, continuous: (2) Desire for detoxification: PLAN: Plan Patient is a 54-year-old female who presented [facility] ED on 01/25/2025 with opiate abuse and desire for detox. 1. Opiate abuse and desire for detox, polysubstance abuse ? Admit under inpatient status to [facility]. Case management consulted. Urine tox screen positive for opiates, fentanyl and cocaine. Patient actively high in the ED. She reports using family member's Percocet but notably is a previous heroin and cocaine addict. Will treat with buprenorphine taper and other as needed medications per opiate withdrawal order set. Notably will hold buprenorphine until patient begins to have withdrawal symptoms. 2. Sinus bradycardia ? Patient with sinus bradycardia to the low 50s in the ED. Borderline hypotension to the low 100 systolic. Suspect due to active opiate intoxication. Continue cardiac monitoring. Chronic medical conditions: ? Mild chronic iron deficiency anemia: Hemoglobin 11.2 on admit, at baseline. Continue home iron supplement. ? GERD: Continue home famotidine. ? Anxiety/depression/bipolar disorder: Continue home citalopram. ? Allergic rhinitis: Continue home montelukast. ? History of hepatitis C infection s/p posttreatment DVT prophylaxis: Lovenox CODE STATUS: Full code, unverified Expected disposition: TBD Total clinical time spent by myself addressing the patient's medical issues, reviewing all the data, and collaborating with patient's care team: 55 minutes. Charges/Coding Visit Charges Inpatient E&M: 75981 Init Hosp L2
--- OUTSIDE RECORDS SUMMARY | 2025-01-25 22:37 | XMS RPT_ITS | CCD ---
Author Organization [facility] Care Team Providers Care Media Sales Executive Name Role Phone Pro Ellis Unavailable Unavailable Pro Ellis Unavailable Unavailable Pro Ellis Unavailable Unavailable Parran, Nba Unavailable Unavailable Parran, Nba Unavailable Unavailable Unavailable, Family Physician Unavailable Un available Unavailable, Family Physician Unavailable Un available Parran, Nba Unavailable Unavailable Parran, Nba Unavailable Unavailable Unavailable, Family Physician Unavailable Un available Unavailable, Family Physician Unavailable Un available Susan Sommers Attending Unavailable Karim, Mohammad Freddie Primary Care Unavaila ble Susan Sommers Attending Unavailable Karim, Mohammad Freddie Primary Care Unavaila ble Susan Sommers Attending Unavailable Karim, Mohammad Freddie Primary Care Unavaila ble MCKENZIE LOMELI Attending Unavailable Tereso, Shira Referring Unavailable Tereso, Shira Primary Care Unavailable Kathleen Daley Attending Unavailable Tereso, Shira Referring Unavailable Tereso, Shira Primary Care Unavailable Kathleen Daley Attending Unavailable Tereso, Shira Referring Unavailable Tereso, Shira Primary Care Unavailable Kathleen Daley Attending Unavailable Tereso, Shira Referring Unavailable Tereso, Shira Primary Care Unavailable Kathleen Daley Attending Unavailable Tereso, Shira Referring Unavailable Tereso, Shira Primary Care Unavailable Susan Sommers Unavailable Unavailable Kennedy Kim Unavailable Unavailable Isarel Michelle Unavailable Unavailable Benyaminever Farzaneh Unavailable Unavailable Edison, Mireya Y Unavailable Unavailable PROVIDER, UNKNOWN Attending Unavailable PROVIDER, UNKNOWN Admitting Unavailable Edison, Mireya Y Unavailable Unavailable Unavailable MEGHNA HERNANDEZ Attending Unava ilable TERESO, SHIRA S Primary Care Unavailable Le, Dr. Fabio Emergency Provider Dr. Shira Rider Primary Care Provider Dr. Kristen Caraballo Admit Provider Dr. Kristen Caraballo Other Provider Dr. Taylor Alarcon Attending Provider [phone] Taylor Alarcon Other Provider [facility] Primary Care Unavailable Kristen Caraballo Admitting Unavailable Kristen Caraballo Consulting Unavailable Kristen Caraballo Attending Unavailable Taylor Alarcon Attending Unavailable Taylor Alarcon Consulting Unavailable [facility] Shira Primary Care Unavailable Taylor Alarcon Attending Unavailable Kristen Caraballo Admitting Unavailable Kristen Caraballo Consulting Unavailable Unavailable Primary Care Provider UnavailJEN Perez Referring Unavailable [facility] Roseline Thakkar DO Primary Care Provider [phone] Unavailable Primary Care Provider Unavailsalvador AUGUSTE, MS. VERN NASCIMENTO Primary Care Allison SOTO MD, CARLTON Attending Unavailable ANNY MARK MD Attending Unavailable ROBY SENA Primary Care Unavailable BRITTANY HARRELL, CARLTON Attending Unavailable ROBY SENA Primary Care Unavailable Shira Rider MD Primary Care Provider [facility] Primary Care Unavailable TRISTAN MCCLELLAN Attending Unavailable ARIANE, ROSELINE Primary Care Unavailable AMANDA CANELA Attending Unavailable ARIANE, ROSELINE Primary Care Unavailable RAMYA SEGOVIA Attending Unavailable ARIANE, ROSELINE Primary Care Unavailable ROSELINE THAKKAR Attending Unavailable JENNIFER ROCHA Attending Unavailable ARIANE, ROSELINE Primary Care Unavailable Allergies Allergy Classification Reported Allergen(s) Allergy Type Date of Onset Reaction(s) Facility (20 sources) doxycycline; Translations: [DOXYCYCLINE] Drug Allergy 12-18-19 15 Rash, Itching [facility] Repository (20 sources) ibuprofen; Translations: [IBUPROFEN] Drug Allergy 12-11-19 15 Nausea Only [facility] Repository (20 sources) Latex; Translations: [LATEX] Propensity to adverse reactions to drug (disorder) 12-02-19 14 Rash, Itching, Nausea Only, Nausea And Vomiting [facility] Repository (20 sources) naproxen; Translations: [NAPROXEN] Drug Allergy 09-26-19 15 Swelling [facility] Repository (20 sources) Penicillins; Translations: [PENICILLINS] Propensity to adverse reactions to drug (disorder) 10-16-19 01 Rash, Shortness of Breath, Itching, Swelling [facility] Repository (2 sources) Amoxicillin; Translations: [Amoxil CAPS] Drug Allergy ZP-Ztsyrspwt-L arma Work Phone: (2 sources) Ampicillin; Translations: [Ampicillin CAPS] Drug Allergy YC-Rhzfgwmqr-O arma Work Phone: (2 sources) Doxycycline; Translations: [Doxycycline Hyclate CAPS] Drug Allergy [facility]-Vkwrdvpau-P arma Work Phone: (2 sources) Naproxen; Translations: [Naproxen TABS] Drug Allergy FG-Zyjejmvfi-P arma Work Phone: (2 sources) Latex Gloves MISC; Translations: [Latex Gloves MISC] drug allergy [facility] -P arma Work Phone: (1 source) Penicillin; Translations: [PENICILLIN G] Drug Allergy 10-16-19 01 [facility] Codeine; Translations: [CODEINE] Drug Allergy 09-15-19 18 Swelling, Itching [facility] (2 sources) Nonsteroidal Anti-inflammatory Compounds Propensity to adverse reactions 03-11-20 19 Upset Stomach [facility] (2 sources) Sulfamethoxazole Drug Allergy 03-11-20 19 Rash [facility] (2 sources) Trimethoprim Drug Allergy 03-11-20 19 Rash [facility] (1 source) Codeine Drug Allergy 03-11-20 19 [facility] Repository (1 source) NSAIDs Drug allergy (disorder) 03-11-20 19 [facility] Repository (1 source) Sulfamethoxazole Drug Allergy 03-11-20 19 [facility] Repository (1 source) Trimethoprim Drug Allergy 03-11-20 19 [facility] Repository (4 sources) lurasidone; Translations: [LURASIDONE] Drug Allergy 05-12-20 23 Shortness of Breath [facility] (4 sources) Sertraline; Translations: [SERTRALINE] Drug Allergy 05-12-20 23 Shortness of Breath [facility] (20 sources) Sulfamethoxazole / Trimethoprim; Translations: [SULFAMETHOXAZOLE-T RIMETHOPRIM] Drug Allergy 04-12-20 17 Rash, Hives [facility] (4 sources) Vancomycin; Translations: [VANCOMYCIN] Drug Allergy 05-12-20 23 GI Upset, Itching [facility] (20 sources) Aluminum aspirin Drug Allergy 07-04-20 15 Unknown [facility] (20 sources) lurasidone Drug Allergy 09-17-19 18 [facility] (20 sources) penicillAMINE Drug Allergy 05-28-20 22 Swelling [facility] (20 sources) Prochlorperazine Drug Allergy 03-13-20 19 Unknown [facility] Medications Current Medications Medication Drug Class(es) Dates Sig (Normalized) Sig (Original) [id number] 200 actuat albuterol 0.09 mg/actuat metered dose inhaler (20 sources) beta2-Adrenergic Agonist Start: 03-28-2024 take 2 puff(s) by inhalation every four hours as needed for wheezing albuterol 108 (90 Base) MCG/ACT inhaler Inhale 2 puffs every 4 hours as needed for wheezing. 18 g 11 03/28/2024 Active End: 03-28-2024 albuterol 108 (90 Base) MCG/ ACT inhaler Inhale 2 puffs if needed. 03/28/2024 Discontinued (Reorder) ProAir HFA 108 ( 90 Base) MCG/ACT Inhalation Aerosol Solution Quantity: 0 Refills: 0 Ordered: 21-Jun-2015 DO Active ProAir HFA 108 ( 90 Base) MCG/ACT Inhalation Aerosol Solution Refills: 0 Active amLODIPine 5 mg oral tablet (20 sources) Dihydropyridine Calcium Channel Reymundo Start: 03-11-2019 End: 06-06-2025 take 1 tablet by mouth once daily amLODIPine (Norvasc) 5 MG tablet Indications: Essential (primary) hypertension Take 1 tablet (5 mg) by mouth daily. 90 tablet 3 06/06/2024 06/06/2025 Active buprenorphine 8 mg / naloxone 2 mg sublingual film (16 sources) Partial Opioid Agonist, Opioid Antagonist Start: 03-22-2024 buprenorphine-nalo xone (Suboxone) 8-2 MG per sublingual film DISSOLVE 1 (ONE) FILM UNDER THE TONGUE EVERY MORNING, ONE-HALF film EVERY EVENING, and ONE-HALF film AT BEDTIME 03/22/2024 Active ciprofloxacin 500 mg oral tablet (1 source) Quinolone Antimicrobial Start: 03-28-2024 End: 04-04-2024 take 1 tablet by mouth twice daily ciprofloxacin (Cipro) 500 MG tablet Indications: Dysuria Take 1 tablet (500 mg) by mouth 2 times daily for 7 days. 14 tablet 03/28/2024 04/04/2024 Active doxycycline hyclate 100 mg oral capsule (3 sources) Tetracycline-class Drug Start: 10-12-2024 doxycycline (Vibramycin) 100 MG capsule Take by mouth 2 times daily (with meals). 10/12/2024 Active Escitalopram (3 sources) Serotonin Reuptake Inhibitor escitalopram oxalate (LEXAPRO ORAL) Take by mouth. Active escitalopram oxa late (LEXAPRO ORAL) Take by mouth. 0 Active Comment on above: Take by mouth. famotidine 40 mg oral tablet (20 sources) Histamine-2 Receptor Antagonist Start: End: take 0.5 tablet by mouth twice daily famotidine (Pepcid) 40 MG tablet Indications: Gastroesophageal reflux disease without esophagitis Take 0.5 tablets (20 mg) by mouth 2 times daily. 90 tablet 3 11/12/2023 03/28/2024 Discontinued (Reorder) Start: 07-08-2023 End: 11-12-2023 take 0.5 tablet by mouth once daily famotidine (Pepcid) 40 MG tablet Take 0.5 tablets (20 mg) by mouth Nightly. 15 tablet 0 07/08/2023 11/12/2023 Discontinued (Reorder) Start: 04-08-2023 End: 03-28-2025 take 1 tablet by mouth twice daily famotidine (Pepcid) 40 MG tablet Indications: Gastroesophageal reflux disease without esophagitis Take 1 tablet (40 mg) by mouth 2 times daily. 180 tablet 3 03/28/2024 03/28/2025 Active Start: 05-25-2022 End: 07-07-2023 famotidine (PEPCID) 40 mg ta blet ferrous sulfate 325 mg oral tablet (20 sources) Start: 11-23-2024 take 1 tablet by mouth once daily at breakfast FeroSul 325 (65 Fe) MG tablet Indications: Anemia, unspecified type Take 1 tablet (325 mg) by mouth daily (with breakfast). 90 tablet 3 11/23/2024 Active Start: 02-27-2016 take 325 mg by mouth twice renuka ly Ferrous Sulfate Active 325 MG PO TWICE A DAY March 11, 2019 12:00am Start: 01-29-2016 End: 11-11-2024 FEROSUL 325 mg (65 mg iron) tablet 04/08/2023 Active hydrOXYzine pamoate 50 mg oral capsule (11 sources) Antihistamine Start: 03-05-2023 End: 03-28-2024 hydrOXYzine pamoate (VISTARIL) 50 mg capsule 03/05/2023 Active Start: 03-05-2019 take 50 mg by mouth once daily Hydroxyzine Pamoate Active 50 MG PO DAILY March 05, 2019 12:00am ibuprofen 800 mg oral tablet (1 source) Nonsteroidal Anti-inflammatory Drug Start: 10-18-2024 End: 11-17-2024 take 1 tablet by mouth three times daily as needed for pain ibuprofen 800 MG tablet Indications: Acute bilateral knee pain , Family history of rheumatoid arthritis Take 1 tablet (800 mg) by mouth 3 times daily as needed for mild pain (1-3) (pain). 90 tablet 10/18/2024 11/17/2024 Active ketoconazole 20 mg/ml medicated shampoo (16 sources) Azole Antifungal Start: 03-03-2024 ketoconazole (NIZOral) 2 % shampoo Apply to scalp, lather, and allow to sit up to 5 minutes prior to rinsing. 03/03/2024 Active montelukast 10 mg oral tablet (20 sources) Leukotriene Receptor Antagonist Start: 09-16-2022 End: 11-11-2024 take 1 tablet by mouth once daily montelukast (Singulair) 10 MG tablet Indications: Mild intermittent asthma without complication Take 1 tablet (10 mg) by mouth Nightly. 90 tablet 3 11/12/2023 Active permethrin 50 mg/ml topical cream (20 sources) Pyrethroid Start: 10-26-2023 End: 11-12-2023 permethrin (Elimite) 5 % cream Indications: Rash THOROUGHLY MASSAGE INTO SKIN FROM HEAD TO SOLES OF FEET ONE time. LEAVE ON FOR 8-14 Hours and THEN REMOVE BY THOROUGH WASHING. 60 g 3 11/12/2023 Active polyethylene glycol 3350 54381 mg powder for oral solution (20 sources) Osmotic Laxative Start: 09-23-2023 End: 11-12-2023 polyethylene glycol, PEG, 3350 (Miralax) 17 g packet Dissolve seventeen (17) grams of powder in 8 ounce of water and drink once a day 100 each 3 11/12/2023 Active predniSONE 10 mg oral tablet (1 source) Start: 05-12-2023 End: 05-21-2023 predniSONE (DELTASONE) 10 mg tablet Indications: Acute cough , History of asthma Take 4 tabs daily for 3 days, then 2 tabs daily for 3 days, then 1 tab daily for 3 days with food. 21 tablet 0 05/12/2023 05/21/2023 Active Comment on above: Take 4 tabs daily fo r 3 days, then 2 tabs daily for 3 days, then 1 tab daily for 3 days with food. raNITIdine 150 mg oral tablet (4 sources) Histamine-2 Receptor Antagonist Start: 03-05-2019 take 150 mg by mouth once daily Ranitidine Hcl Active 150 MG PO DAILY March 05, 2019 12:00am Start: 04-20-2016 raNITIdine HCl 150 MG TABS Quantity: 30 Refills: 0 Ordered: 20-Apr-2016 DO Start : 20-Apr-2016 Active Start: 04-20-2016 raNITIdine HCl - 150 MG Oral Tablet Quantity: 30 Refills: 0 Start : 20-Apr-2016 Active selenium sulfide 22.5 mg/ml medicated shampoo (20 sources) Start: 09-17-2023 End: 11-12-2023 Selenium Sulfide 2.25 % shampoo Indications: Scalp lesion 1 luther, Topical, Q3DAYS, # 180 mL, Refill(s) 0, Date: 09/17/23 6:46:00 PM EST 180 mL 3 11/12/2023 Active topiramate 100 mg oral tablet (20 sources) Start: 11-11-2023 End: 03-28-2025 take 1 tablet by mouth twice daily topiramate (Topamax) 100 MG tablet Indications: Bipolar I disorder (HCC) Take 1 tablet (100 mg) by mouth 2 times daily. 60 tablet 11 03/28/2024 03/28/2025 Active Start: 04-08-2023 topiramate (TO PAMAX) 25 mg tablet 04/08/2023 Active Start: 03-11-2019 take 50 mg by mouth twice daily as needed Topiramate Active 50 MG PO TWICE DAILY NEEDED March 11, 2019 12:00am Topiramate 50 MG Oral Tablet Quantity: 0 Refills: 0 Ordered: 19-Nov-2014 DO Active Topiramate 50 MG Oral Tablet Refills: 0 Active Completed/Discontinued Medications Medication Drug Class(es) Dates Sig (Normalized) Sig (Original) acetaminophen 325 mg / HYDROcodone bitartrate 5 mg oral tablet (4 sources) Opioid Agonist Start: 03-05-2019 End: 03-08-2019 take 1 tablet by mouth every six hours as needed Hydrocodone-Acetami nophen Discontinued 1 TABLET PO EVERY 6 HOURS NEEDED 10 3 March 05, 2019 March 08, 2019 12:07am Start: 06-21-2015 take 1 tablet by peter th every four to six hours as needed for pain HYDROcodone-Acetaminophen 5-325 MG Oral Tablet TAKE 1 TABLET EVERY 4 TO 6 HOURS NEEDED FOR PAIN. Quantity: 12 Refills: 0 Ordered: 21-Jun-2015 Israel Michelle DO Start : 21-Jun-2015 Active ALPRAZolam 1 mg oral tablet (2 sources) Benzodiazepine Xanax 1 MG Oral Tablet Quantity: 0 Refills: 0 Ordered: 19-Nov-2014 DO Active Xanax 1 MG Oral Tablet Refills: 0 Active amLODIPine 10 mg / benazepril hydrochloride 20 mg oral capsule (2 sources) Dihydropyridine Calcium Channel Reymundo, Angiotensin Converting Enzyme Inhibitor amLODIPine Besy-Benazepril HCl - 10-20 MG Oral Capsule Quantity: 0 Refills: 0 Ordered: 21-Jun-2015 DO Active benzocaine 0.2 mg/mg oral paste (2 sources) Standardized Chemical Allergen Start: 06-21-2015 Orabase 20 % PSTE APPLY SPARINGLY 3 TIMES A DAY Quantity: 5 Refills: 0 Ordered: 21-Jun-2015 SilverstIsrael schwarz DO Start : 21-Jun-2015 Active Start: 06-21-2015 Orabase 20 % P LUCIEN APPLY SPARINGLY 3 TIMES A DAY Quantity: 5 Refills: 0 Silverstine Israel CLAROS Start : 21-Jun-2015 Active busPIRone hydrochloride 30 mg oral tablet (2 sources) Start: 03-05-2019 End: 03-01-2023 take 30 mg by mouth once daily Buspirone Discontinued 30 MG PO DAILY March 05, 2019 12:00am March 01, 2023 1:04am cefTRIAXone 250 mg injection (1 source) Cephalosporin Antibacterial Start: 10-16-2016 CefTRIAXone Sodium 250 MG Injection Solution Reconstituted INJECT 250 MG Intramuscular Refills: 0 Kennedy Kim MD Start : 16-Oct-2016 Admin Requested celecoxib 50 mg oral capsule (2 sources) Nonsteroidal Anti-inflammatory Drug CeleBREX 50 MG Oral Capsule Quantity: 0 Refills: 0 Ordered: 21-Jun-2015 DO Active CeleBREX 50 MG O ral Capsule Refills: 0 Active cephalexin 500 mg oral capsule (2 sources) Cephalosporin Antibacterial Start: 03-11-2019 End: 03-01-2023 take 500 mg by mouth every eight hours Cephalexin Discontinued 500 MG PO EVERY 8 HOURS March 11, 2019 12:00am March 01, 2023 1:04am citalopram 20 mg oral tablet (20 sources) Serotonin Reuptake Inhibitor Start: 11-11-2023 End: 11-12-2023 take 1 tablet by mouth once daily citalopram (CeleXA) 20 MG tablet Take 20 mg by mouth daily. 0 11/11/2023 11/12/2023 Discontinued Start: 03-05-2019 take 60 mg by mouth once daily Citalopram Active 60 MG PO DAILY March 05, 2019 12:00am Start: 06-10-2015 Citalopram Hyd robromide 40 MG Oral Tablet Quantity: 45 Refills: 0 Start : 10-Jun-2015 Active Start: 06-10-2015 Citalopram Hyd robromide 40 MG Oral Tablet Quantity: 45 Refills: 0 Ordered: 10-Jun-2015 DO Start : 10-Jun-2015 Active cloNIDine hydrochloride 0.1 mg oral tablet (1 source) Central alpha-2 Adrenergic Agonist Start: 03-05-2023 End: 11-12-2023 take 1 tablet by mouth twice daily cloNIDine (Catapres) 0.1 MG tablet Take 0.1 mg by mouth 2 times daily. 0 03/05/2023 11/12/2023 Discontinued gabapentin 600 mg oral tablet (2 sources) Anti-epileptic Agent Start: 03-05-2019 End: 03-01-2023 take 600 mg by mouth three times daily at mealtime Gabapentin Discontinued 600 MG PO 3 TIMES DAILY WITH MEALS March 05, 2019 12:00am March 01, 2023 1:04am hydrocortisone 10 mg/ml topical cream (1 source) Corticosteroid Start: 06-25-2023 hydrocortisone 1 % cream Apply to affected area two times a day. 20 g 0 06/25/2023 Active Comment on above: Apply to affected ar ea two times a day. linezolid 600 mg oral tablet (1 source) Oxazolidinone Antibacterial Start: 09-21-2023 End: 09-28-2023 take 1 tablet by mouth every twelve hours linezolid (Zyvox) 600 MG tablet Take 600 mg by mouth in the morning and 600 mg in the evening. 0 09/21/2023 09/28/2023 nabumetone 750 mg oral tablet (2 sources) Nonsteroidal Anti-inflammatory Drug Nabumetone 750 MG Oral Tablet Quantity: 0 Refills: 0 Ordered: 19-Nov-2014 DO Active naltrexone hydrochloride 50 mg oral tablet (6 sources) Opioid Antagonist Start: 03-19-2023 End: 03-28-2024 take 1 tablet by mouth once daily naltrexone (Depade) 50 MG tablet Take 50 mg by mouth daily. 03/19/2023 03/28/2024 Discontinued (Med list cleanup) nitrofurantoin, macrocrystals 25 mg / nitrofurantoin, monohydrate 75 mg oral capsule (2 sources) Nitrofuran Antibacterial Start: 10-16-2016 take 1 capsule by mouth twice daily Nitrofurantoin Monohyd Macro 100 MG Oral Capsule TAKE 1 CAPSULE TWICE DAILY UNTIL GONE. Quantity: 10 Refills: 0 Ordered: 16-Oct-2016 Kennedy Kim MD Start : 16-Oct-2016 Active ondansetron 4 mg disintegrating oral tablet (2 sources) Serotonin-3 Receptor Antagonist Start: 03-05-2019 End: 03-01-2023 take 4 mg by mouth every eight hours as needed Ondansetron Discontinued 4 MG PO EVERY 8 HOURS NEEDED March 05, 2019 12:00am March 01, 2023 3:13am pregabalin 150 mg oral capsule (4 sources) Start: 08-12-2016 Lyrica 150 MG Oral Capsule Quantity: 60 Refills: 0 Ordered: 12-Aug-2016 DO Start : 12-Aug-2016 Active Start: 08-12-2016 Lyrica 150 MG Oral Capsule Quantity: 60 Refills: 0 Start : 12-Aug-2016 Active Start: 05-16-2016 Lyrica 100 MG Oral Capsule Quantity: 60 Refills: 0 Ordered: 16-May-2016 DO Start : 16-May-2016 Active Start: 05-16-2016 Lyrica 100 MG Oral Capsule Quantity: 60 Refills: 0 Start : 16-May-2016 Active QUEtiapine 100 mg oral tablet (4 sources) Atypical Antipsychotic Start: 03-05-2019 End: 03-01-2023 take 100 mg by mouth at bedtime Quetiapine Discontinued 100 MG PO AT BEDTIME March 05, 2019 12:00am March 01, 2023 3:18am Start: 07-14-2018 take 1 tablet by peter th once daily at bedtime QUEtiapine Fumarate 200 MG Oral Tablet TAKE 1 TABLET EVERY DAY AT BEDTIME Quantity: 30 Refills: 3 Ordered: 14-Jul-2018 Farzaneh Billings PA-C Start : 14-Jul-2018 Active 24 hr venlafaxine 37.5 mg extended release oral capsule (2 sources) Serotonin and Norepinephrine Reuptake Inhibitor Start: 08-12-2015 take 1 capsule by mouth every twenty-four hours Venlafaxine HCl ER 37.5 MG Oral Capsule Extended Release 24 Hour Quantity: 7 Refills: 0 Ordered: 12-Aug-2015 DO Start : 12-Aug-2015 Active Problems Active Problems Problem Classification Problem Date Documented Da te Episodic/Chronic Abdominal pain (4 sources) Abdominal pain; Translations: [Abdominal pain, unspecified site] 03-12-2019 Episodic Anxiety disorders (20 sources) Posttraumatic stress disorder; Translations: [Post-traumatic stress disorder, unspecified] Onset: 5 04-30-2022 Chronic Asthma (20 sources) Asthma; Translations: [Unspecified asthma, uncomplicated] Onset: 5 04-30-2022 Chronic Deficiency and other anemia (2 sources) Anemia; Translations: [Anemia, unspecified] 11-12-2023 Episodic Diabetes mellitus without complication (1 source) Hyperglycemia; Translations: [Hyperglycemia, unspecified] 11-12-2023 Episodic Disorders of lipid metabolism (20 sources) Pure hypercholesterolemia; Translations: [Pure hypercholesterolemia, unspecified] Onset: 1 04-30-2022 Chronic Esophageal disorders (6 sources) Gastroesophageal reflux disease; Translations: [Gastro-esophageal reflux disease without esophagitis] Onset: 4 03-01-2023 Chronic Essential hypertension (20 sources) Essential hypertension; Translations: [Essential (primary) hypertension] Onset: 5 07-07-2023 Chronic Fluid and electrolyte disorders (10 sources) Hypokalemia; Translations: [Hypokalemia] Onset: 3 03-01-2023 Episodic Gastrointestinal hemorrhage (2 sources) Rectal hemorrhage; Translations: [Hemorrhage of anus and rectum] 03-12-2019 Episodic Mood disorders (20 sources) Depressive disorder; Translations: [Depressive disorder, not elsewhere classified] Onset: 0 04-30-2022 Chronic Other ear and sense organ disorders (1 source) Sensorineural hearing loss, bilateral; Translations: [Sensorineural hearing loss, bilateral] Onset: 9 Chronic Other ear and sense organ disorders (2 sources) Sensorineural hearing loss, bilateral; Translations: [Sensorineural hearing loss, bilateral] Chronic Other ear and sense organ disorders (20 sources) Hearing problem; Translations: [Unspecified hearing loss, bilateral] Onset: 1 04-30-2022 Chronic Other infections; including parasitic (1 source) Other specified infestations; Translations: [Infestation by bed bug] Onset: 3 Episodic Other inflammatory condition of skin (1 source) Itching ; Translations: [Pruritus, unspecified] 06-25-2023 Episodic Other inflammatory condition of skin (2 sources) Seborrheic dermatitis of scalp; Translations: [Seborrheic dermatitis, unspecified] 07-28-2024 Episodic Other lower respiratory disease (2 sources) Snoring; Translations: [Snoring] Onset: 9 Episodic Other lower respiratory disease (1 source) Cough; Translations: [Acute cough] 05-12-2023 Episodic Other lower respiratory disease (1 source) H/O: asthma; Translations: [Personal history of other diseases of the respiratory system] 05-12-2023 Episodic Other nervous system disorders (20 sources) Unspecified cord compression; Translations: [Unspecified disease of spinal cord] Onset: 8 04-30-2022 Chronic Other nervous system disorders (1 source) Other chronic pain; Translations: [Acute on chronic low back pain] Onset: 5 Chronic Other non-traumatic joint disorders (2 sources) Pain in right knee; Translations: [Pain in right knee] Onset: 5 Episodic Other non-traumatic joint disorders (2 sources) Pain in left knee; Translations: [Pain in left knee] Onset: Episodic Other screening for suspected conditions (not mental disorders or infectious disease) (1 source) Patient encounter status; Translations: [Encounter for screening mammogram for malignant neoplasm of breast] 11-12-2023 Episodic Other skin disorders (1 source) Lesion of scalp; Translations: [Disorder of the skin and subcutaneous tissue, unspecified] 11-12-2023 Episodic Other skin disorders (2 sources) Eruption; Translations: [Rash and other nonspecific skin eruption] 11-12-2023 Episodic Regional enteritis and ulcerative colitis (20 sources) Crohn's disease; Translations: [Crohn's disease, unspecified, without complications] Onset: 0 04-30-2022 Chronic Residual codes; unclassified (4 sources) Noncompliance with medication regimen; Translations: [Noncompliance with medication regimen] 03-01-2023 Episodic Residual codes; unclassified (1 source) FH: Rheumatoid arthritis; Translations: [Family history of arthritis] 10-18-2024 Episodic Residual codes; unclassified (2 sources) Family history of arthritis; Translations: [Family history of arthritis] Onset: 5 Episodic Screening and history of mental health and substance abuse codes (5 sources) H/O: manic depressive disorder; Translations: [Personal history of other mental and behavioral disorders] Onset: 5 03-01-2023 Episodic Spondylosis; intervertebral disc disorders; other back problems (20 sources) Degeneration of lumbar intervertebral disc; Translations: [Other intervertebral disc degeneration, lumbar region] Onset: 5 04-30-2022 Chronic Sprains and strains (3 sources) Sprain of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 office Appt scheduled with RONY tomorrow [facility] 36 She needs to talk to [facility] about this. Not sure why she needs a refill of the med she already took for the mrsa. [address] 06-30-2024 36 Name of caller: Kiana ambrosio Contact phone number: [phone] Relationship to Patient: patient Provider: Ariane Practice: Lynda FRASER Chief Complaint/Reason for Call: Patient called back in with the medication name for her MRSA. It is called VIVI (Mario). Please note and advise. Best time of day caller can be reached: any Patient advised that office/PCP has 24-48 business hours to return their call: No [address] 06-28-2024 [address] 06-23-2024 36 We have been unable to reach your patient to schedule their testing. Test Name: Head and neck ultrasound 1st Attempt: 01/15/24 via [employer] message 2nd Attempt: Cancelled/no show 01/19/24, 01/29/24, 06/07/24 TE sent to office, cancel request 06/23/[address] 06-20-2024 36 Lmom letting pt know [facility] message sent and needing for [facility] information to get list of Rx pt was on. [address] 06-16-2024 36 Lmom to fill out ZABRINA for Rx from [facility]. [address] 06-06-2024 36 Please obtain record s from [facility]. [address] 06-05-2024 36 Name of caller: Kiana ambrosio Contact phone number: [phone] Relationship to Patient: patient Provider: Ariane Practice: Lynda Primary Chief Complaint/Reason for Call: Patient said she needs her amlodipine sent to the [facility] on . Please advise Best time of day caller can be reached: any Patient advised that office/PCP has 24-48 business hours to return their call: No [facility] 36 Name of caller: Kiana ambrosio Contact phone number: [phone] Relationship to Patient: patient Provider: ariane Practice: lynda Chief Complaint/Reason for Call: patient says she went to [facility] and they told her she has mrsa in her head and they started her on medication She could not give me name of medication but she said they told her to stop taking the cipro and take this other one but she is out of the correct one she will call drug store and get the name she needs more antibiotic Best time of day caller can be reached: any Patient advised that office/PCP has 24-48 business hours to return their call: no [facility] Clinical Interventi ons-Texton 04-24-2024 Pharmacy Clinical Interventions-Text Pharmacy Clinical Interventions Entered On: 04/24/2024 13:13 EDT Performed On: 04/24/2024 13:11 EDT by Fatimah Fonseca RPh Interventions Intervention Type Pharmacy : ED - Culture Intervention Pharmacy Order Initiated By : Pharmacist Clinical Importance Pharmacy : Potentially major Prescriber Response Pharmacy : Corrected prior to contact Patient Clinical Outcome Pharmacy : Avoided potential risk Pharmacist Intervention Time : 5 Pharmacy Additional Information : Patient was on RCW and she called back after 3 failed attempts to reach her. Plan was to send new script for clindamycin 450 mg TID x 7 days to pharmacy for MRSA wound cx treatment. 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 Fatimah Fonseca RPh - 04/24/2024 13:11 EDT [facility] Clinical Interventi ons-Texton 04-18-2024 Pharmacy Clinical Interventions-Text Pharmacy Clinical Interventions Entered On: 04/18/2024 12:58 EDT Performed On: 04/18/2024 12:57 EDT by Karan Hoyos RPh Interventions Intervention Type Pharmacy : ED - Culture Review Pharmacy Order Initiated By : Pharmacist Clinical Importance Pharmacy : Potentially minor Prescriber Response Pharmacy : Corrected prior to contact Patient Clinical Outcome Pharmacy : Avoided potential risk Pharmacist Intervention Time : 5 Pharmacy Additional Information : see worklist documentation WCx Karan Hoyos RPh - 04/18/2024 12:57 EDT [facility] C MISCon 04-16-[address] [facility] pt of Laboratory Services [address] [place] [id number] Name: KAMLA HEDRICK : 1970 Admitting Provider: Gender Female Financial [phone] : Number: Danyell ORTEZ; RA; 1 n: Admit 04/13/2024 Date: Discharge 04/13/2024 Microbiology Date: PROCEDURE: C MIS [] SOURCE: WOUND BODY SITE: COLLECTED DATE/TIME: 04/13/2024 16:39 EDT RECEIVED DATE/TIME: 04/13/2024 20:51 EDT START DATE/TIME: 04/13/2024 20:51 EDT FREE TEXT SOURCE: [facility] ORDERING PHYSICIAN: CARLTON SOTO MD FINAL REPORTS Final Report [] Verified Date/Time: 04/16/2024 09:42 EDT Moderate Staphylococcus aureus *Note Methicillin Resistance* with Normal Skin Pretty isolated. STAINS GS [] Verified Date/Time: 04/13/2024 22:59 EDT Moderate Gram Positive Cocci. Rare white blood cells seen. SUSCEPTIBILITY RESULTS Staphylococcus aureus Antibiotic RAINER Dil Clindamycin <0.25 Erythromycin >=8 Gentamicin <=0.5 Oxacillin >=4 Tetracycline >=16 Trimethoprim/Sulfametho xazole >=320 Vancomycin 1 ____ L=Low, H= High, *= Abnormal, C=Critical, f=Footnote, c=Corrected, i=Interp Data Name: KAMLA HEDRICK Print 04/16/2024 09:42 EDT [facility] [address] [place] [id number] Name: KAMLA HEDRICKN: [id number] : 1970 Admitting Provider: Gender Female Financial [id number] : Number: Danyell ORTEZJanet MARIE; 1 n: Admit 04/13/2024 Date: Discharge 04/13/2024 Microbiology Date: SUSCEPTIBILITY RESULTS Staphylococcus aureus Antibiotic RAINER Interp Amp/Sulbactam Resistant Cefazolin Resistant Clindamycin Susceptible Erythromycin Resistant Gentamicin Susceptible Oxacillin Resistant Tetracycline Resistant Trimethoprim/Sulfametho xazole Resistant Vancomycin Susceptible ____ L=Low, H= High, *= Abnormal, C=Critical, f=Footnote, c=Corrected, i=Interp Data Name: KAMLA HEDIRCK Print 04/16/2024 09:42 EDT Date/Time: Normal [facility] Comment on above: Performed By: #### [id number] #### [facility] [address] [place] [address] Agricultural Crop Farm Manager: Demetrio Rodrigez MD ED Data VP STRATEGIC PLANNING - Texton 024 ED Data VP STRATEGIC PLANNING - Text ED Data VP STRATEGIC PLANNING Entered On: 04/13/2024 16:30 EDT Performed On: 04/13/2024 16:20 EDT by Agustina Goodman RN ED General Intake Information [place] Coma : Document [place] Coma Scale Problem History : Document Problem History Procedure History : Document Procedure History Safety Screening : Document Safety Screening Referral Source : Home Mode of Arrival * : Car / Walk-In ED KINDER1 Falls Risk : Document Falls Assessment Infection Screening : Document Infection Screening Depression Screening : Document Depression Screening Would you accept a blood transfusion if necessary? : Yes Social History : Document Social History Currently or : Unknown Agustina Goodman RN - 04/13/2024 16:26 EDT [place] Coma Scale Eye Opening : Spontaneously Best Verbal Response : Oriented Best Motor Response : Obeys simple commands [place] Coma Score (Ref) : 15 Agustina Goodman RN - 04/13/2024 16:26 EDT Problem History (As Of: 04/13/2024 16:30:17 EDT) Problems(Active) Bipolar 1 disorder (SN[address] :2352095314 ) Name of Problem: Bipolar 1 disorder ; Recorder: Monica Doll RN; Confirmation: Confirmed ; Classification: Patient/Family Stated ; Code: [id number] ; Contributor System: [email or web address] ; Last Updated: 06/10/2016 19:47 EST ; Life Cycle Date: 06/10/2016 ; Life Cycle Status: Active ; Vocabulary: SNOMED CT Crohns disease (SNOMED CT :5659047932 ) Name of Problem: Crohns disease ; Recorder: Zuleika Wagner RN; Confirmation: Confirmed ; Classification: Medical ; Code: [id number] ; Contributor System: Aisle50 ; Last Updated: 01/27/2017 19:25 EDT ; Life Cycle Date: 01/27/2017 ; Life Cycle Status: Active ; Vocabulary: SNOMED CT Methicillin resistant Staphylococcus aureus (SNOMED CT :720524474 ) Name of Problem: Methicillin resistant Staphylococcus aureus ; Recorder: SYSTEM; Confirmation: Confirmed ; Classification: Medical ; Code: [id number] ; Last Updated: 09/20/2023 06:47 EST ; Life Cycle Date: 09/20/2023 ; Life Cycle Status: Active ; Vocabulary: SNOMED CT ; Comments: 09/20/2023 6:47 - SYSTEM This problem was added by Discern Expert. MRSA Positive (Patient Care : ) Name of Problem: MRSA Positive ; Recorder: SYSTEM; Confirmation: Confirmed ; Classification: Nursing ; Last Updated: 09/19/2023 10:32 EST ; Life Cycle Date: 09/19/2023 ; Life Cycle Status: Active ; Vocabulary: Patient Care ; Comments: 09/19/2023 10:32 - SYSTEM Problem added secondary to lab order - MRSA Positive being placed for this patient. Opioid use disorder, Severe (SNOMED CT :624706264 ) Name of Problem: Opioid use disorder, Severe ; Recorder: ROBERT MENDOZA DO; Confirmation: Confirmed ; Classification: Medical ; Code: 606046474 ; Contributor System: Aisle50 ; Last Updated: 03/01/2017 15:02 EDT ; Life Cycle Status: Active ; Responsible Provider: ROBERT MENDOZA DO; Vocabulary: SNOMED CT Posttraumatic stress disorder (SNOMED CT :293846582 ) Name of Problem: Posttraumatic stress disorder ; Recorder: ROBERT MENDOZA DO; Confirmation: Confirmed ; Classification: Medical ; Code: [id number] ; Contributor System: Aisle50 ; Last Updated: 03/01/2017 15:02 EDT ; Life Cycle Status: Active ; Responsible Provider: ROBERT MENDOZA DO; Vocabulary: SNOMED CT PTSD (post-traumatic stress disorder) (SNOMED CT :150795616 ) Name of Problem: PTSD (post-traumatic stress disorder) ; Recorder: Monica Doll RN; Confirmation: Confirmed ; Classification: Patient/Family Stated ; Code: [id number] ; Contributor System: Aisle50 ; Last Updated: 06/10/2016 19:47 EST ; Life Cycle Date: 06/10/2016 ; Life Cycle Status: Active ; Vocabulary: SNOMED CT Tobacco use disorder, Moderate (SNOMED CT :90077136 ) Name of Problem: Tobacco use disorder, Moderate ; Recorder: ROBERT MENDOZA DO; Confirmation: Confirmed ; Classification: Medical ; Code: 59873035 ; Contributor System: Aisle50 ; Last Updated: 03/01/2017 15:03 EDT ; Life Cycle Status: Active ; Responsible Provider: ROBERT MENDOZA DO; Vocabulary: SNOMED CT Vancomycin resistant enterococcus (SNOMED CT :494098999 ) Name of Problem: Vancomycin resistant enterococcus ; Recorder: SYSTEM; Confirmation: Confirmed ; Classification: Medical ; Code: 209667078 ; Last Updated: 02/02/2016 06:33 EDT ; Life Cycle Date: 02/02/2016 ; Life Cycle Status: Active ; Vocabulary: SNOMED CT ; Comments: 02/02/2016 6:33 - SYSTEM This problem was added by Discern Expert. VRE Positive (Patient Care : ) Name of Problem: VRE Positive ; Recorder: SYSTEM; Confirmation: Confirmed ; Classification: Nursing ; Last Updated: 02/02/2016 06:34 EDT ; Life Cycle Date: 02/02/2016 ; Life Cycle Status: Active ; Vocabulary: Patient Care ; Comments: 02/02/2016 6:34 - SYSTEM Problem added secondary to lab order - VRE Positive being placed for this patient. Diagnoses(Active) Neck pain Date: 04/13/2024 ; Diagnosis Type: Reason For Visit ; Confirmation: Confirmed ; Clinical Dx: Neck pain ; Classification: Medical ; Clinica (more content not included)... Normal [facility] ED Discharge Educationon ED Discharge Education Dermatology Folliculitis: Care Instructions Overview Folliculitis (say jmg-BUB-pur-LY-tus) is an inflammation of the pouches (follicles) in the skin where hair grows. It can occur on any part of the body, but it is most common on the scalp, face, armpits, and groin. Bacteria, such as those found in a hot tub, can cause folliculitis. But folliculitis can also be caused by other organisms, such as fungi or parasites. Folliculitis begins as a red, tender area near a strand of hair. The skin can itch or burn and may drain pus or blood. Sometimes folliculitis can lead to more serious skin infections. Your doctor usually can treat mild folliculitis with an antibiotic cream or ointment. If you have folliculitis on your scalp, you may use a medicated shampoo. Antibiotics you take as pills can treat infections deeper in the skin. Other treatments that may be used include antifungal and antiparasitic medicines. Folliculitis may be caused by ingrown hairs from shaving. One solution is to stop shaving. If that isn't an option, using an electric razor that doesn't shave so close may help. Laser treatment may also be an option. Laser treatment destroys the hair follicle so hair will no longer grow in the treated area. Follow-up care is a lambert part of your treatment and safety. Be sure to make and go to all appointments, and call your doctor if you are having problems. It's also a good idea to know your test results and keep a list of the medicines you take. How can you care for yourself at home? ? Take your medicine exactly as prescribed. If your doctor prescribed antibiotics, take them as directed. Do not stop taking them just because you feel better. You need to take the full course of antibiotics. ? To help with itching or pain, put a warm, moist cloth (like a clean washcloth) on the area for 5 to 10 minutes, 3 to 6 times a day. ? Do not share your razor, towel, or washcloth. That can spread folliculitis. ? If folliculitis is caused by shaving, try to avoid shaving for at least a month. If that isn't an option, use an electric razor that doesn't shave so close. Or if you need a clean shave, use shaving cream or gel and always shave in the direction that the hair grows. When should you call for help? Call your doctor now or seek immediate medical care if: ? You have symptoms of infection, such as: ? Increased pain, swelling, warmth, or redness. ? Red streaks leading from the area. ? Pus draining from the area. ? A fever. Watch closely for changes in your health, and be sure to contact your doctor if: ? You do not get better as expected. Where can you learn more? Go to https://www.ClrTouch. [employer]/patientEd Enter M257 in the search box to learn more about Folliculitis: Care Instructions. Current as of: June 02, 2021 Content Version: 13.3 ? [employer]. Care instructions adapted under license by your healthcare professional. If you have questions about a medical condition or this instruction, always ask your healthcare professional. [employer] disclaims any warranty or liability for your use of this information. Normal [facility] ED Emergency Severity Index Adult-Texton 04-13-2024 ED Emergency Severity Index Adult-Text AIDEN - Adult Entered On: 04/13/2024 16:30 EDT Performed On: 04/13/2024 16:20 EDT by Agustina Goodman RN DCP GENERIC CODE Visit Reason : NECK PAIN Tracking Triage Date/Time : 04/13/2024 16:30 EDT Tracking Reg Status : Requested Tracking Acuity : [id number] Tracking Group : Agustina Alba RN - 04/13/2024 16:26 EDT Normal [facility] ED Patient Summaryon 024 ED Patient Summary [facility] Emergency Department Discharge Instructions [address] [place] [address] (Patient Copy) Name: RYLEY October : 1970 Allergies: penicillins; naproxen; ibuprofen; doxycycline; Compazine; Bactrim Diagnosis: Acute folliculitis. Visit Date: 04/13/2024 16:09:19 [facility]#: [id number] Current Date Time: 04/13/2024 17:25:55 Address: [address] [place] [id number] Primary Care Provider: Name: VERN AUGUSTE Phone: [phone] Emergency Department Care Providers: Primary Physician: CARLTON SOTO MD Thank you for choosing [facility] for your emergency care. You are very important to us. Our goal is to demonstrate our high quality medical care, and provide you with a very good patient experience. You may receive a survey about our service. Please take the time to complete the survey and return it so we can continue to enhance our service. Thank you again for allowing the [facility] Emergency Department to care for your medical needs. If you have questions about your care or follow up information please contact us at [phone]. Follow-Up Instructions RYLEYOctober D has been given these follow-up instructions: With: Address: When: Ariane Within Call for Appointment Comments: Please call for close follow-up with Dr. Thakkar. A culture of the wound was sent. Because you are on citalopram you cannot take Linezolid At the same time. If the new culture again grows MRSA you will need to stop the citalopram in order to take the Linezolid. This will need to be done by your primary care physician. Patient Education Materials RYLEYOctober has been given the following patient education materials: Folliculitis: Care Instructions Overview Folliculitis (say ipm-JFF-ans-LY-tus) is an inflammation of the pouches (follicles) in the skin where hair grows. It can occur on any part of the body, but it is most common on the scalp, face, armpits, and groin. Bacteria, such as those found in a hot tub, can cause folliculitis. But folliculitis can also be caused by other organisms, such as fungi or parasites. Folliculitis begins as a red, tender area near a strand of hair. The skin can itch or burn and may drain pus or blood. Sometimes folliculitis can lead to more serious skin infections. Your doctor usually can treat mild folliculitis with an antibiotic cream or ointment. If you have folliculitis on your scalp, you may use a medicated shampoo. Antibiotics you take as pills can treat infections deeper in the skin. Other treatments that may be used include antifungal and antiparasitic medicines. Folliculitis may be caused by ingrown hairs from shaving. One solution is to stop shaving. If that isn't an option, using an electric razor that doesn't shave so close may help. Laser treatment may also be an option. Laser treatment destroys the hair follicle so hair will no longer grow in the treated area. Follow-up care is a lambert part of your treatment and safety. Be sure to make and go to all appointments, and call your doctor if you are having problems. It's also a good idea to know your test results and keep a list of the medicines you take. How can you care for yourself at home? ? Take your medicine exactly as prescribed. If your doctor prescribed antibiotics, take them as directed. Do not stop taking them just because you feel better. You need to take the full course of antibiotics. ? To help with itching or pain, put a warm, moist cloth (like a clean washcloth) on the area for 5 to 10 minutes, 3 to 6 times a day. ? Do not share your razor, towel, or washcloth. That can spread folliculitis. ? If folliculitis is caused by shaving, try to avoid shaving for at least a month. If that isn't an option, use an electric razor that doesn't shave so close. Or if you need a clean shave, use shaving cream or gel and always shave in the direction that the hair grows. When should you call for help? Call your doctor now or seek immediate medical care if: ? You have symptoms of infection, such as: ? Increased pain, swelling, warmth, or redness. ? Red streaks leading from the area. ? Pus draining from the area. ? A fever. Watch closely for changes in your health, and be sure to contact your doctor if: ? You do not get better as expected. Where can you learn more? Go to https://www.ClrTouch. net/patientEd Enter M257 in the search box to learn more about Folliculitis: Care Instructions. Current as of: June 02, 2021 Content Version: 13.3 ? [employer]. Care instructions adapted under license by your healthcare professional. If you have questions about a medical condition or this instruction, always ask your healthcare profess (more content not included)... Normal [facility] ED Physician Reporton 2023 ED Physician Report MARYDIEUDONNE, October :1970 Registration Date:04/13/2024 History of Present Illness 53-year-old female presents with lymph node enlargement in her posterior neck. I saw her in September 16 of this year she had multiple lesions in her scalp. She had head lice. The culture grew Pseudomonas and MRSA. She took a 7-day course of Cipro was feeling better but now the lymph nodes have come back. And the scalp lesions have come back. According to her the insurance refused to give for the linezolid because they could not prove it was MRSA. 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 She has an appointment scheduled for ultrasound in the middle of April. She comes in now because the lymph nodes are causing her pain again. She has not been on antibiotics for 5 months. She has no fever no chills no sore throat no runny nose no night sweats. Review of Systems Constitutional symptoms: [Negative except as documented in HPI.] Skin symptoms: [Negative except as documented in HPI.] Eye symptoms: [Negative except as documented in HPI.] ENMT symptoms: [Negative except as documented in HPI.] Respiratory symptoms: [Negative except as documented in HPI.] Cardiovascular symptoms: [Negative except as documented in HPI.] Gastrointestinal symptoms: [Negative except as documented in HPI.] Genitourinary symptoms: [Negative except as documented in HPI.] Musculoskeletal symptoms: [Negative except as documented in HPI.] Psychiatric symptoms: [Negative except as documented in HPI.] Neurologic symptoms: [Negative except as documented in HPI.] Additional review of systems information: [All other systems reviewed and otherwise negative, Systems negative except as stated in the H&P.] Physical Exam Vitals & Measurements Initial: T: 36.6 ?C (Oral) HR: 73 (Peripheral) BP: 101/73 RR: 18 SpO2: 97% O2 Therapy: Room air Time Seen: [] Vital Signs: [Per nurse's notes.] General: [Alert] Skin: [Warm, dry, no rash.] Head: [Normocephalic, atraumatic. Multiple open wounds scalp, consistent with folliculitis. Neck: [Supple, trachea midline multiple posterior lymph nodes approximately 1 cm bilateral. Eye: [Pupils are equal, round and reactive to light, extraocular movements are intact, normal conjunctiva.] Ears, nose, mouth and throat: [Tympanic membranes clear, oral mucosa moist.] Cardiovascular: [Regular rate and rhythm, no murmur.] Respiratory: [Lungs are clear to auscultation, respirations are non-labored, breath sounds are equal.] Chest wall: [No tenderness, no deformity.] Gastrointestinal: [Soft, nontender, non distended, normal bowel sounds.] Lymphatics: [No lymphadenopathy.] Psychiatric: [Cooperative, appropriate mood & affect.] Neurological: [Alert and oriented to person, place, time, and situation, no focal neurological deficit observed.] Medical Decision Making Patient's history and history of cultures were reviewed. She did have MRSA and Pseudomonas growing from the wounds September 16. One of the wounds was cultured again today. Back in September she should have been started on Cipro and linezolid however her insurance company would not cover the linezolid so she only took the Cipro. According to our culture she did have MRSA back then. Because she is on citalopram she cannot take the linezolid together with the citalopram. This was discussed with the patient. At this time we will not stop her citalopram, we will send a culture if the culture is positive for MRSA she will need to wean off the citalopram. This will be up to her primary care physician Dr. Mayo. If she develops fevers or has worsening pain or any symptoms or any concerns she will return here immediately. Reexamination/Reevaluat ion Systolic Blood Pressure: 101 mmHg Diastolic Blood Pressure: 73 mmHg Temperature Oral: 36.6 degC Respiratory Rate: 18 br/min SpO2: 97 % Oxygen Therapy: Room air Peripheral Pulse Rate: 73 bpm Discharge/Plan *Discharge Disposition NO DISCHARGE DISPOSITION DOCUMENTED Patient Education Folliculitis Follow Up With When Contact Information Ariane Within Call for Appointment Additional Instructions: Please call for close follow-up with Dr. Thakkar. A culture of the wound was sent. Because you are on citalopram you cannot take Linezolid At the same time. If the new culture again grows MRSA you will need to stop the citalopram in order to take the Linezolid. This will need to be done by your primary care physician. Assessment This Visit Diagnosis Acute folliculitis. L73.9 Orders: ciprofloxacin = Cipro(Cipro 500 mg oral tablet), 500 mg= 1 tabs, ORAL, [id number] MISC(MISCELLANEOUS CULTURE), ROUTINE, BRITTANY HARRELL, [place], 04/13/2024 16:39:00 EDT, Specimen type: WOUND, scalp wound occipital Problem List/Past Medical History Ongoing Crohns disease Methicillin resistant Staphylococcus aureus Opioid use disorder, Severe Posttraumatic stress disorder Tobacco use disorder, Moderate Van (more content not included)... Normal [facility] ED Progress Noteon 4 ED Progress Note 1620 pt presents to ED ambulatory from home with c/o neck pain with lesions. has been seen here before and had them cultured, was prescribed linzoid but insurance did not cover it so pt just took cipro. pt returns to ED for like symptoms. denies fever/chills, SOB, abd pain, chest pain, or any other sx at this time. VSS. a/ox3. Dr. Soto in to assess. wound culture sent to lab 1700 Patient discharged from ED with written discharge instructions and RX x1. Patient educated appropriately. Patient voices no question or concerns at this time. Pt ambulatory with steady gait out to private vehicle. [facility] ED Triage [facility] - [place] 04-13 ED Triage [facility] - Text ED Triage [facility] Enter ed On: 04/13/2024 16:28 EDT Performed On: 04/13/2024 16:20 EDT by Agustina Goodman RN Triage Temperature Oral : 36.6 degC(Converted to: 97.9 degF) Systolic Blood Pressure : 101 mmHg Diastolic Blood Pressure : 73 mmHg Heart Rate : 73 bpm Respiratory Rate : 18 br/min Oxygen Saturation : 97 % Oxygen Therapy : Room air ED Document Sepsis Screening : Document Sepsis Screening ED Document Reason for Visit : Document Reason for Visit Scale Type : Patient Stated Weight Patient Stated Weight : 76 kg(Converted to: 167 lb 9 oz) Height/Length Dosing : 167 cm(Converted to: 5 ft 6 in) Pain Symptoms : Yes Pain Scale Age Range : VAS (8 yrs & older) Pain Level (VAS) : 7 = Severe Pain Agustina Goodman RN - 04/13/2024 16:26 EDT (As Of: 04/13/2024 16:28:23 EDT) Problems(Active) Bipolar 1 disorder (SNOMED CT :5723341129 ) Name of Problem: Bipolar 1 disorder ; Recorder: Monica Doll RN; Confirmation: Confirmed ; Classification: Patient/Family Stated ; Code: [id number] ; Contributor System: [email or web address] ; Last Updated: 06/10/2016 19:47 EST ; Life Cycle Date: 06/10/2016 ; Life Cycle Status: Active ; Vocabulary: SNOMED CT Crohns disease (SNOMED CT :7564099989 ) Name of Problem: Crohns disease ; Recorder: Zuleika Wagner RN; Confirmation: Confirmed ; Classification: Medical ; Code: [id number] ; Contributor System: [email or web address] ; Last Updated: 01/27/2017 19:25 EDT ; Life Cycle Date: 01/27/2017 ; Life Cycle Status: Active ; Vocabulary: SNOMED CT Methicillin resistant Staphylococcus aureus (SNOMED CT :787696377 ) Name of Problem: Methicillin resistant Staphylococcus aureus ; Recorder: SYSTEM; Confirmation: Confirmed ; Classification: Medical ; Code: [id number] ; Last Updated: 09/20/2023 06:47 EST ; Life Cycle Date: 09/20/2023 ; Life Cycle Status: Active ; Vocabulary: SNOMED CT ; Comments: 09/20/2023 6:47 - SYSTEM This problem was added by Discern Expert. MRSA Positive (Patient Care : ) Name of Problem: MRSA Positive ; Recorder: SYSTEM; Confirmation: Confirmed ; Classification: Nursing ; Last Updated: 09/19/2023 10:32 EST ; Life Cycle Date: 09/19/2023 ; Life Cycle Status: Active ; Vocabulary: Patient Care ; Comments: 09/19/2023 10:32 - SYSTEM Problem added secondary to lab order - MRSA Positive being placed for this patient. Opioid use disorder, Severe (SNOMED CT :401617643 ) Name of Problem: Opioid use disorder, Severe ; Recorder: ROBERT MENDOZA DO; Confirmation: Confirmed ; Classification: Medical ; Code: [id number] ; Contributor System: [email or web address] ; Last Updated: 03/01/2017 15:02 EDT ; Life Cycle Status: Active ; Responsible Provider: ROBERT MENDOZA DO; Vocabulary: SNOMED CT Posttraumatic stress disorder (SNOMED CT :878660452 ) Name of Problem: Posttraumatic stress disorder ; Recorder: ROBERT MENDOZA DO; Confirmation: Confirmed ; Classification: Medical ; Code: [id number] ; Contributor System: SportingoChart ; Last Updated: 03/01/2017 15:02 EDT ; Life Cycle Status: Active ; Responsible Provider: ROBERT MENDOZA DO; Vocabulary: SNOMED CT PTSD (post-traumatic stress disorder) (SNOMED CT :056062714 ) Name of Problem: PTSD (post-traumatic stress disorder) ; Recorder: Monica Doll RN; Confirmation: Confirmed ; Classification: Patient/Family Stated ; Code: [id number] ; Contributor System: PowerChart ; Last Updated: 06/10/2016 19:47 EST ; Life Cycle Date: 06/10/2016 ; Life Cycle Status: Active ; Vocabulary: SNOMED CT Tobacco use disorder, Moderate (SNOMED CT :47257902 ) Name of Problem: Tobacco use disorder, Moderate ; Recorder: ROBERT MENDOZA DO; Confirmation: Confirmed ; Classification: Medical ; Code: [id number] ; Contributor System: PowerChart ; Last Updated: 03/01/2017 15:03 EDT ; Life Cycle Status: Active ; Responsible Provider: ROBERT MENDOZA DO; Vocabulary: SNOMED CT Vancomycin resistant enterococcus (SNOMED CT :431668166 ) Name of Problem: Vancomycin resistant enterococcus ; Recorder: SYSTEM; Confirmation: Confirmed ; Classification: Medical ; Code: [id number] ; Last Updated: 02/02/2016 06:33 EDT ; Life Cycle Date: 02/02/2016 ; Life Cycle Status: Active ; Vocabulary: SNOMED CT ; Comments: 02/02/2016 6:33 - SYSTEM This problem was added by Discern Expert. VRE Positive (Patient Care : ) Name of Problem: VRE Positive ; Recorder: SYSTEM; Confirmation: Confirmed ; Classification: Nursing ; Last Updated: 02/02/2016 06:34 EDT ; Life Cycle Date: 02/02/2016 ; Life Cycle Status: Active ; Vocabulary: Patient Care ; Comments: 02/02/2016 6:34 - SYSTEM Problem added secondary to lab order - VRE Positive being placed for this patient. Diagnoses(Active) Neck pain Date: 04/13/2024 ; Diagnosis Type: Reason For Visit ; Confirmation: Confirmed ; Clinical Dx: Neck pain ; Classification: Medical ; Clinical Service: Non-Specified ; Code: PNED ; Probability: 0 ; Diagnosis Code: [id number] Reason for Visit (As Of: 04/13/2024 16:28:23 EDT) Problems(Active) B (more content not included)... [facility] AMB POC URINALYSIS DIP STICK AUTO W/O MICROon 03-28-2024 Bilirubin, UA Negative [facility] Blood, UA Negative [facility] Glucose, UA Negative [facility] Interpretation and review of laboratory results Abnormal [facility] Ketones, UA (mg/dL) Negative Negative mg/dL [facility] Leukocytes, UA [facility] Nitrite, UA Negative [facility] pH, UA 7.0 [facility] Protein, UA Negative [facility] Spec Grav, UA 1.[address] [facility] Urobilinogen, UA 0.[address] [facility] al[facility] Office Visiton 03-28-2024 Follow-up visit [id number] Kiana Hedrick 1970 F Date Provider Department Center 03/28/2024 [id number] THAKKAR [facility] Family History Problem Relation Age of Onset No Known Problems Sister No Known Problems Son No Known Problems Maternal Grandmother No Known Problems Paternal Grandfather No Known Problems Brother No Known Problems Brother No Known Problems Brother Hyperlipidemia Father No Known Problems Mother No Known Problems Daughter No Known Problems Maternal Grandfather Cancer Father Comments: lung No Known Problems Sister High Blood Pressure Other No Known Problems Brother No Known Problems Paternal Grandmother No Known Problems Brother Diabetes Other No Known Problems Daughter No Known Problems Sister Family Status - Relation Status Age at Sister Alive Son Alive Maternal Grandmother Alive Paternal Grandfather Brother Alive Brother Alive Brother Alive Father Mother Alive Daughter Alive Maternal Grandfather Sister Alive Other Brother Alive Paternal Grandmother Brother Alive Daughter Alive Sister Alive Level of Service:[id number] CO OFFICE/OUTPATIENT ESTABLISHED MOD [facility] 30 MIN Reason for Visit and Comments: Rash [709518] - Rash/bumps are not improving. Patient reports rash all over body not going away. (Possibly from roommate) UTI [[id number]] - UTI symptoms. Reports urgency, burning, spasms Discuss Medications [876] - Wants to take Topamax only prn, also wants to increase Pepcid Normal [facility] Progress Noteon 03-28-2024 Progress Note [facility] [place] [id number] [facility] [address] [facility] [id number] Visit Type: Office Visit PCP: Roseline Thakkar DO Reason for Visit: Rash (Rash/bumps are not improving. Patient reports rash all over body not going away. (Possibly from roommate) ), UTI (UTI symptoms. Reports urgency, burning, spasms ), and Discuss Medications (Wants to take Topamax only prn, also wants to increase Pepcid) Assessment and Plan Kamla was seen today for rash, uti and discuss medications. Diagnoses and all orders for this visit: Bipolar I disorder (HCC) Comments: managed per psych. takes topamax for headaches and anxiety. uses prn. Orders: - topiramate (Topamax) 100 MG tablet; Take 1 tablet (100 mg) by mouth 2 times daily. Rash Comments: concerned about apperance of lesions on her arms and hands - perhaps molluscum? referral to ID as we are not making progress with derm at this time Orders: - [facility] Infectious Disease; Future Dysuria Comments: treat empirically with cipro d/t multiple drug allergies. urine cx pending. Orders: - AMB POC URINALYSIS DIP STICK AUTO W/O MICRO - Urine culture; Future - Urine culture - ciprofloxacin (Cipro) 500 MG tablet; Take 1 tablet (500 mg) by mouth 2 times daily for 7 days. Gastroesophageal reflux disease without esophagitis Comments: continue pepcid 40mg bid. Orders: - famotidine (Pepcid) 40 MG tablet; Take 1 tablet (40 mg) by mouth 2 times daily. Other orders - albuterol 108 (90 Base) MCG/ACT inhaler; Inhale 2 puffs every 4 hours as needed for wheezing. Follow up if symptoms worsen or fail to improve. There are no Patient Instructions on file for this visit. Subjective HPI Notes the rash is still on her hands and legs. She attributes this to touching a friend at home helping her put on a coverup. She believes it's scabies. 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 Has appt with derm on Wednesday. (Dr. Sorto) They are focusing most on her hair d/t the hair loss. Giving medicated creams and shampoos. Notes at night she feels something move in her skin. Describes a form in her foot. Likes it's moving. Psych is not aware of her rash. See's her monthly. Notes feeling like she has a bladder infection. Urgency to urinate. Small amounts of urine. Abdominal pain. Topamax was 100mg bid. Then went to prn use. For mgmt of anxiety and migraines. Review of Systems Pertinent ROS noted in the HPI and all other systems are negative. Current Outpatient Medications Medication Sig Dispense Refill amLODIPine (Norvasc) 5 MG tablet Take 1 tablet (5 mg) by mouth daily. 90 tablet 3 buprenorphine-naloxone (Suboxone) 8-2 MG per sublingual film DISSOLVE 1 (ONE) FILM UNDER THE TONGUE EVERY MORNING, ONE-HALF film EVERY EVENING, and ONE-HALF film AT BEDTIME CeleXA 40 MG tablet Take 40 mg by mouth daily. ferrous sulfate 325 (65 Fe) MG tablet Take 1 tablet (325 mg) by mouth daily (with breakfast). 90 tablet 3 ketoconazole (NIZOral) 2 % shampoo Apply to scalp, lather, and allow to sit up to 5 minutes prior to rinsing. montelukast (Singulair) 10 MG tablet Take 1 tablet (10 mg) by mouth Nightly. 90 tablet 3 permethrin (Elimite) 5 % cream THOROUGHLY MASSAGE INTO SKIN FROM HEAD TO SOLES OF FEET ONE time. LEAVE ON FOR 8-14 Hours and THEN REMOVE BY THOROUGH WASHING. 60 g 3 polyethylene glycol, PEG, 3350 (Miralax) 17 g packet Dissolve seventeen (17) grams of powder in 8 ounce of water and drink once a day 100 each 3 Selenium Sulfide 2.25 % shampoo 1 luther, Topical, Q3DAYS, # 180 mL, Refill(s) 0, Date: 09/17/23 6:46:00 PM EST 180 mL 3 albuterol 108 (90 Base) MCG/ACT inhaler Inhale 2 puffs every 4 hours as needed for wheezing. 18 g 11 ciprofloxacin (Cipro) 500 MG tablet Take 1 tablet (500 mg) by mouth 2 times daily for 7 days. 14 tablet 0 famotidine (Pepcid) 40 MG tablet Take 1 tablet (40 mg) by mouth 2 times daily. 180 tablet 3 topiramate (Topamax) 100 MG tablet Take 1 tablet (100 mg) by mouth 2 times daily. 60 tablet 11 No current facility-administered medications for this visit. Patient Active Problem List Diagnosis Date Noted Hearing deficit, bilateral 05/13/2021 Vaping nicotine dependence, tobacco product 05/13/2021 Pure hypercholesterolemia 05/09/2021 Bipolar I disorder (HCC) 11/16/2019 Crohn's disease (HCC) 11/16/2019 Gonalgia 03/24/2018 Temporomandibular joint disorder 03/24/2018 Fibrositis 03/24/2018 Hepatitis C 08/23/2017 Mild intermittent asthma without complication 08/23/2017 Cervical spinal cord compression (HCC) 08/23/2017 Fibromyalgia 08/23/2017 Varicose veins of both lower extremities 07/16/2016 Gallbladder sludge 04/20/2016 Chronic back pain 04/20/2016 Hepatomegaly 04/20/2016 Essential hypertension, benign 02/27/2015 Degeneration of lumbar intervertebral disc 02/27/2015 Posttraumatic stress disorder 02/01/2015 Thyroid cyst 02/01/2015 Objective (more content not included)... Normal [facility] 36on 03-15-2024 36 S: Patient spoke wit h CAC nurse regarding rash B: Onset of symptoms/concern ongoing , no better A: Pt states was seen previously for a red bump rash all over from head to toes. Pt states was given a cream (permethrin) to try. Pt states it is making it look like she has lint balls coming out from the red spots all over. Pt states doesn't feel cream is working. Pt denies any other symptoms. R: Pt states needs appointment on a Wednesday or Wednesday. Pt scheduled for first available appointment within her scheduling restrictions. Pt scheduled for 03/[address] Thakkar. Pt instructed to arrive 15 minutes early, bring photo ID, insurance card and current med list. Patient understands care advice. No further needs at this time. Patient instructed to call back with new or worsening symptoms. Reason for Disposition ? Mild widespread rash (Exception: Heat rash lasting 3 days or less.) Protocols used: Rash or Redness - [id number] Normal [facility] ED Data [facility] - [place] 024 ED Data [facility] - Text ED Data [facility]ING Entered On: 03/03/2024 11:00 EDT Performed On: 03/03/2024 10:57 EDT by Ramya Stewart RN ED General Intake Information Information Given By : Patient [place] Coma : Document [place] Coma Scale Problem History : Document Problem History Procedure History : Document Procedure History Safety Screening : Document Safety Screening Referral Source : Home Mode of Arrival * : Car / Walk-In ED KINDER1 Falls Risk : Document Falls Assessment Infection Screening : Document Infection Screening Depression Screening : Document Depression Screening Would you accept a blood transfusion if necessary? : Yes Social History : Document Social History Currently or : Not Applicable Ramya Stewart RN - 03/03/2024 10:57 EDT [place] Coma Scale Eye Opening : Spontaneously Best Verbal Response : Oriented Best Motor Response : Obeys simple commands [place] Coma Score (Ref) : 15 Ramya Stewart RN - 03/03/2024 10:57 EDT Problem History (As Of: 03/03/2024 11:00:19 EDT) Problems(Active) Bipolar 1 disorder (SNOMED CT :9842193661 ) Name of Problem: Bipolar 1 disorder ; Recorder: Monica Doll RN; Confirmation: Confirmed ; Classification: Patient/Family Stated ; Code: [id number] ; Contributor System: [email or web address] ; Last Updated: 06/10/2016 19:47 EST ; Life Cycle Date: 06/10/2016 ; Life Cycle Status: Active ; Vocabulary: SNOMED CT Crohns disease (SNOMED CT :5756817548 ) Name of Problem: Crohns disease ; Recorder: Zuleika Wagner RN; Confirmation: Confirmed ; Classification: Medical ; Code: [id number] ; Contributor System: [email or web address] ; Last Updated: 01/27/2017 19:25 EDT ; Life Cycle Date: 01/27/2017 ; Life Cycle Status: Active ; Vocabulary: SNOMED CT Methicillin resistant Staphylococcus aureus (SNOMED CT :249885379 ) Name of Problem: Methicillin resistant Staphylococcus aureus ; Recorder: SYSTEM; Confirmation: Confirmed ; Classification: Medical ; Code: 737940107 ; Last Updated: 09/20/2023 06:47 EST ; Life Cycle Date: 09/20/2023 ; Life Cycle Status: Active ; Vocabulary: SNOMED CT ; Comments: 09/20/2023 6:47 - SYSTEM This problem was added by Discern Expert. MRSA Positive (Patient Care : ) Name of Problem: MRSA Positive ; Recorder: SYSTEM; Confirmation: Confirmed ; Classification: Nursing ; Last Updated: 09/19/2023 10:32 EST ; Life Cycle Date: 09/19/2023 ; Life Cycle Status: Active ; Vocabulary: Patient Care ; Comments: 09/19/2023 10:32 - SYSTEM Problem added secondary to lab order - MRSA Positive being placed for this patient. Opioid use disorder, Severe (SNOMED CT :006983983 ) Name of Problem: Opioid use disorder, Severe ; Recorder: ROBERT MENDOZA DO; Confirmation: Confirmed ; Classification: Medical ; Code: 717109298 ; Contributor System: [email or web address] ; Last Updated: 03/01/2017 15:02 EDT ; Life Cycle Status: Active ; Responsible Provider: ROBERT MENDOZA DO; Vocabulary: SNOMED CT Posttraumatic stress disorder (SNOMED CT :500569230 ) Name of Problem: Posttraumatic stress disorder ; Recorder: ROBERT MENDOZA DO; Confirmation: Confirmed ; Classification: Medical ; Code: 711221739 ; Contributor System: [email or web address] ; Last Updated: 03/01/2017 15:02 EDT ; Life Cycle Status: Active ; Responsible Provider: ROBERT MENDOZA DO; Vocabulary: SNOMED CT PTSD (post-traumatic stress disorder) (SNOMED CT :097154111 ) Name of Problem: PTSD (post-traumatic stress disorder) ; Recorder: Monica Doll RN; Confirmation: Confirmed ; Classification: Patient/Family Stated ; Code: 105989816 ; Contributor System: [email or web address] ; Last Updated: 06/10/2016 19:47 EST ; Life Cycle Date: 06/10/2016 ; Life Cycle Status: Active ; Vocabulary: SNOMED CT Tobacco use disorder, Moderate (SNOMED CT :14483276 ) Name of Problem: Tobacco use disorder, Moderate ; Recorder: ROBERT MENDOZA DO; Confirmation: Confirmed ; Classification: Medical ; Code: 88655990 ; Contributor System: [email or web address] ; Last Updated: 03/01/2017 15:03 EDT ; Life Cycle Status: Active ; Responsible Provider: ROBERT MENDOZA DO; Vocabulary: SNOMED CT Vancomycin resistant enterococcus (SNOMED CT :430877956 ) Name of Problem: Vancomycin resistant enterococcus ; Recorder: SYSTEM; Confirmation: Confirmed ; Classification: Medical ; Code: 959895398 ; Last Updated: 02/02/2016 06:33 EDT ; Life Cycle Date: 02/02/2016 ; Life Cycle Status: Active ; Vocabulary: SNOMED CT ; Comments: 02/02/2016 6:33 - SYSTEM This problem was added by Discern Expert. VRE Positive (Patient Care : ) Name of Problem: VRE Positive ; Recorder: SYSTEM; Confirmation: Confirmed ; Classification: Nursing ; Last Updated: 02/02/2016 06:34 EDT ; Life Cycle Date: 02/02/2016 ; Life Cycle Status: Active ; Vocabulary: Patient Care ; Comments: 02/02/2016 6:34 - SYSTEM Problem added secondary to lab order - VRE Positive being placed for this patient. Diagnoses(Active) Knee injury - Minor Date: 03/03/2024 ; Diagnosis Type: Reason For Visit ; Confirmation: Confirmed ; Clini (more content not included)... [facility] ED Discharge Educationon ED Discharge Education Orthopedics and Rheumatology Knee Pain or Injury: Care Instructions Your Care Instructions Injuries are a common cause of knee problems. Sudden (acute) injuries may be caused by a direct blow to the knee. They can also be caused by abnormal twisting, bending, or falling on the knee. Pain, bruising, or swelling may be severe, and may start within minutes of the injury. Overuse is another cause of knee pain. Other causes are climbing stairs, kneeling, and other activities that use the knee. Everyday wear and tear, especially as you get older, also can cause knee pain. Rest, along with home treatment, often relieves pain and allows your knee to heal. If you have a serious knee injury, you may need tests and treatment. Follow-up care is a lambert part of your treatment and safety. Be sure to make and go to all appointments, and call your doctor if you are having problems. It's also a good idea to know your test results and keep a list of the medicines you take. How can you care for yourself at home? ? Be safe with medicines. Read and follow all instructions on the label. ? If the doctor gave you a prescription medicine for pain, take it as prescribed. ? If you are not taking a prescription pain medicine, ask your doctor if you can take an eeqg-vei-cjdeesj medicine. ? Rest and protect your knee. Take a break from any activity that may cause pain. ? Put ice or a cold pack on your knee for 10 to 20 minutes at a time. Put a thin cloth between the ice and your skin. ? Prop up a sore knee on a pillow when you ice it or anytime you sit or lie down for the next 3 days. Try to keep it above the level of your heart. This will help reduce swelling. ? If your knee is not swollen, you can put moist heat, a heating pad, or a warm cloth on your knee. ? If your doctor recommends an elastic bandage, sleeve, or other type of support for your knee, wear it as directed. ? Follow your doctor's instructions about how much weight you can put on your leg. Use a cane, crutches, or a walker as instructed. ? Follow your doctor's instructions about activity during your healing process. If you can do mild exercise, slowly increase your activity. ? Reach and stay at a healthy weight. Extra weight can strain the joints, especially the knees and hips, and make the pain worse. Losing even a few pounds may help. When should you call for help? Call 911 anytime you think you may need emergency care. For example, call if: ? You have symptoms of a blood clot in your lung (called a pulmonary embolism). These may include: ? Sudden chest pain. ? Trouble breathing. ? Coughing up blood. Call your doctor now or seek immediate medical care if: ? You have severe or increasing pain. ? Your leg or foot turns cold or changes color. ? You cannot stand or put weight on your knee. ? Your knee looks twisted or bent out of shape. ? You cannot move your knee. ? You have signs of infection, such as: ? Increased pain, swelling, warmth, or redness. ? Red streaks leading from the knee. ? Pus draining from a place on your knee. ? A fever. ? You have signs of a blood clot in your leg (called a deep vein thrombosis), such as: ? Pain in your calf, back of the knee, thigh, or groin. ? Redness and swelling in your leg or groin. Watch closely for changes in your health, and be sure to contact your doctor if: ? You have tingling, weakness, or numbness in your knee. ? You have any new symptoms, such as swelling. ? You have bruises from a knee injury that last longer than 2 weeks. ? You do not get better as expected. Where can you learn more? Go to https://www.ClrTouch. net/patientEd Enter K195 in the search box to learn more about Knee Pain or Injury: Care Instructions. Current as of: September 24, 2021 Content Version: 13.3 ? [employer]. Care instructions adapted under license by your healthcare professional. If you have questions about a medical condition or this instruction, always ask your healthcare professional. [employer] disclaims any warranty or liability for your use of this information. [facility] ED Emergency Severity Index Adult-Texton 03-03-2024 ED Emergency Severity Index Adult-Text AIDEN - Adult Entered On: 03/03/2024 11:00 EDT Performed On: 03/03/2024 10:50 EDT by Pat TRACY, Ramya WOLFE DCP GENERIC CODE Visit Reason : KNEE PAIN Tracking Triage Date/Time : 03/03/2024 11:00 EDT Tracking Reg Status : Complete Tracking Acuity : 8-Par-Epiipt Tracking Group : CLARENCE Stewart RN, Ramya - 03/03/2024 10:57 EDT [facility] ED Patient Summaryon 024 ED Patient Summary [facility] Emergency Department Discharge Instructions [address] [place] [address] (Patient Copy) Name: KAMLA HEDRICK : 1970 Allergies: penicillins; naproxen; ibuprofen; doxycycline; Compazine; Bactrim Diagnosis: Knee injury Visit Date: 03/03/2024 10:43:41 Current Date Time: 03/03/2024 12:07:53 Address: [address] [place] [address] Primary Care Provider: Name: ROBY SENA Emergency Department Care Providers: Primary Physician: ANNY MARK MD Thank you for choosing [facility] for your emergency care. You are very important to us. Our goal is to demonstrate our high quality medical care, and provide you with a very good patient experience. You may receive a survey about our service. Please take the time to complete the survey and return it so we can continue to enhance our service. Thank you again for allowing the [facility] Emergency Department to care for your medical needs. If you have questions about your care or follow up information please contact us at [phone]. Follow-Up Instructions KAMLA HEDRICK has been given these follow-up instructions: With: Address: When: ALLA KUHN, Orthopedic Surgery [address] [facility], [address] [address] Business (1) Within 3 to 5 days Patient Education Materials KAMLA HEDRICK has been given the following patient education materials: Knee Pain or Injury: Care Instructions Your Care Instructions Injuries are a common cause of knee problems. Sudden (acute) injuries may be caused by a direct blow to the knee. They can also be caused by abnormal twisting, bending, or falling on the knee. Pain, bruising, or swelling may be severe, and may start within minutes of the injury. Overuse is another cause of knee pain. Other causes are climbing stairs, kneeling, and other activities that use the knee. Everyday wear and tear, especially as you get older, also can cause knee pain. Rest, along with home treatment, often relieves pain and allows your knee to heal. If you have a serious knee injury, you may need tests and treatment. Follow-up care is a lambert part of your treatment and safety. Be sure to make and go to all appointments, and call your doctor if you are having problems. It's also a good idea to know your test results and keep a list of the medicines you take. How can you care for yourself at home? ? Be safe with medicines. Read and follow all instructions on the label. ? If the doctor gave you a prescription medicine for pain, take it as prescribed. ? If you are not taking a prescription pain medicine, ask your doctor if you can take an [id number]-[id number] medicine. ? Rest and protect your knee. Take a break from any activity that may cause pain. ? Put ice or a cold pack on your knee for 10 to 20 minutes at a time. Put a thin cloth between the ice and your skin. ? Prop up a sore knee on a pillow when you ice it or anytime you sit or lie down for the next 3 days. Try to keep it above the level of your heart. This will help reduce swelling. ? If your knee is not swollen, you can put moist heat, a heating pad, or a warm cloth on your knee. ? If your doctor recommends an elastic bandage, sleeve, or other type of support for your knee, wear it as directed. ? Follow your doctor's instructions about how much weight you can put on your leg. Use a cane, crutches, or a walker as instructed. ? Follow your doctor's instructions about activity during your healing process. If you can do mild exercise, slowly increase your activity. ? Reach and stay at a healthy weight. Extra weight can strain the joints, especially the knees and hips, and make the pain worse. Losing even a few pounds may help. When should you call for help? Call 911 anytime you think you may need emergency care. For example, call if: ? You have symptoms of a blood clot in your lung (called a pulmonary embolism). These may include: ? Sudden chest pain. ? Trouble breathing. ? Coughing up blood. Call your doctor now or seek immediate medical care if: ? You have severe or increasing pain. ? Your leg or foot turns cold or changes color. ? You cannot stand or put weight on your knee. ? Your knee looks twisted or bent out of shape. ? You cannot move your knee. ? You have signs of infection, such as: ? Increased pain, swelling, warmth, or redness. ? Red streaks leading from the knee. ? Pus draining from a place on your knee. ? A fever. ? You have signs of a blood clot in your leg (called a deep vein thrombosis), such as: ? Pain in your calf, back of the knee, thigh, or groin. ? Redness and swelling in your leg or groin. Watc (more content not included)... [facility] ED Physician Reporton 2023 ED Physician Report RYLEY, October :1970 Registration Date:03/03/2024 Basic Information CC of knee pain History of Present Illness Patient presents with complaint of left knee pain. The pain started after she fell yesterday. She was trying to prevent someone else from falling and she fell onto the concrete injuring her left knee and hitting her face. She says she had a bloody lip but she has no pain to her face or neck or head. No loss of consciousness or amnesia to the event. She is not on any blood thinners. She has pain with walking and some swelling to her left knee and would like to have that checked out. Physical Exam General: Awake, alert, no acute distress. Well developed, appears stated age. Skin: Warm, dry. Appropriate color for ethnicity. Head: Normocephalic and atraumatic. Hair is of normal texture. Respiratory: The chest wall is symmetric. No signs of respiratory distress. Musculoskeletal: Upper and lower extremities are without deformity. Tenderness to palpation to the lateral aspect of the left knee, mild swelling. Neurological: Awake, alert, normal speech. Psychiatric: Appropriate mood and affect. Medical Decision Making Differential diagnosis includes: Knee contusion, sprain, dislocation, fracture Reexamination/Reevaluat ion X-ray of the knee was performed and radiologist did mention an effusion as well as a small fragment on the patella, age-indeterminate. Patient will be placed in knee immobilizer and given follow-up information to orthopedic surgery. She is comfortable with this plan. All of the patient's concerns that were expressed to me during this visit have been addressed and immediate life threatening emergencies have been ruled out. All questions that the patient had were answered to the best of my ability prior to leaving the facility. The patient was instructed to return to the ER in the event of new, or worsening, or concerning symptoms. The patient verbally expressed a clear understanding of the diagnosis and the instructions. Dictation software was used to complete this note and may contain unintentional licensed pesticide applicator errors. Discharge/Plan *Discharge Disposition NO DISCHARGE DISPOSITION DOCUMENTED Patient Education Knee Pain or Injury Follow Up With When Contact Information ALLA KUHN, Orthopedic Surgery Within 3 to 5 [address] [address] [facility] (1) Additional Instructions: Assessment This Visit Diagnosis Knee injury S89.90XA Orders: ED Discharge to Home, 03/03/2024 12:01:00 EDT, Constant Order Splint Patient Care(Knee Immobilizer), 03/03/2024 11:59:00 EDT, Knee Immobilizer, Constant Order XR KNEE LEFT 3 VIEWS, 03/03/2024 10:56:00 EDT, STAT, PAIN, Fall, Cart Problem List/Past Medical History Ongoing Crohns disease Methicillin resistant Staphylococcus aureus Opioid use disorder, Severe Posttraumatic stress disorder Tobacco use disorder, Moderate Vancomycin resistant enterococcus Procedure/Surgical History gallbladder none Medication Reconciliation Unchanged buprenorphine-naloxone (buprenorphine-naloxone 8 mg-2 mg = Suboxone sublingual tablet)DISSOLVE ONE TABLET UNDER THE TONGUE IN THE MORNING, ONE-HALF TABLET IN THE EVENING and ONE-HALF TABLET AT BEDTIME. citalopram (citalopram 20 mg oral tablet)Take one (1) tablet by mouth daily. clobetasol topical (clobetasol 0.05% topical solution)APPLY to scalp DAILY at bedtime. famotidine (famotidine 40 mg oral tablet)TAKE 1/2 (ONE-HALF) OF A TABLET BY MOUTH TWICE DAILY. hydrOXYzine (hydrOXYzine hydrochloride 50 mg oral tablet)TAKE 2 TABLETS BY MOUTH EVERY DAY AT BEDTIME. ketoconazole topical (ketoconazole topical 2% shampoo = Nizoral)Apply to scalp, lather, and allow to sit up to 5 minutes prior to rinsing.. montelukast (montelukast 10 mg oral tablet)Take 1 tablet (10 mg) by mouth Nightly.. topiramate (topiramate 100 mg oral tablet)Take one (1) tablet by mouth twice a day. Allergies Bactrim Compazine doxycycline Itching ibuprofen naproxen penicillins Social History Alcohol - Denies Alcohol Use Substance Abuse - Denies Substance Abuse Type:Narcotics Use:Past Tobacco - Denies Tobacco Use Use:Current every day smoker Type:Cigarettes *Exposure to Tobacco SmokePatient smokes *Smoking Cessation PacketDeclined *Pt desires smoking cessation counselorNo Family History Family history is negative Diagnostic Results XR KNEE LEFT 3 VIEWS 03/03/2024 11:34 EDT KNEE LEFT 3 VIEWS 03/03/24 11:30:44 EXAM DESCRIPTION: XR KNEE LEFT 3 VIEWS RadLex: XR KNEE 3 VIEWS LEFT CLINICAL HISTORY: Fall;PAIN. WHAT SYMPTOMS ARE YOU EXPERIENCING?; LATERAL SIDE LEFT KNEE PAIN S/P FALL YESTERDAY AT WORK. COMPARISON: 03/25/2017 FINDINGS: Bones: There is a subtle lucency at the lateral inferior margin of the patella seen only on the AP view, obscured on other views. Otherwise, no acute fr (more content not included)... 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 waiting rm pt c/o fall yesterday at work and landed on left knee and hit her face c/o continued left knee pain able to ambulate 1200 discharged pt in NAD, instructions given, verbalized understanding encouraged close f/u with dr or return for worsening [facility] ED Triage VP STRATEGIC PLANNING - Texton 03-03 ED Triage VP STRATEGIC PLANNING - Text ED Triage VP STRATEGIC PLANNING Enter ed On: 03/03/2024 10:58 EDT Performed On: 03/03/2024 10:50 EDT by Ramya Stewart RN Triage Temperature Oral : 37 degC(Converted to: 98.6 degF) Systolic Blood Pressure : 115 mmHg Diastolic Blood Pressure : 76 mmHg Heart Rate : 65 bpm Respiratory Rate : 20 br/min Oxygen Saturation : 97 % Oxygen Therapy : Room air ED Document Sepsis Screening : Document Sepsis Screening ED Document Reason for Visit : Document Reason for Visit Scale Type : Patient Stated Weight Patient Stated Weight : 79.5 kg(Converted to: 175 lb 4 oz) Height/Length Dosing : 167.6 cm(Converted to: 5 ft 6 in) Pain Symptoms : Yes Pain Scale Age Range : VAS (8 yrs & older) Pain Level (VAS) : 4 = Moderate Pain Ramya Stewart RN - 03/03/2024 10:57 EDT (As Of: 03/03/2024 10:58:52 EDT) Problems(Active) Bipolar 1 disorder (SNOM[address] :1344770718 ) Name of Problem: Bipolar 1 disorder ; Recorder: Monica Doll RN; Confirmation: Confirmed ; Classification: Patient/Family Stated ; Code: [id number] ; Contributor System: [email or web address] ; Last Updated: 06/10/2016 19:47 EST ; Life Cycle Date: 06/10/2016 ; Life Cycle Status: Active ; Vocabulary: SNOMED CT Crohns disease (SNOMED CT :5924703188 ) Name of Problem: Crohns disease ; Recorder: Zuleika Wagner RN; Confirmation: Confirmed ; Classification: Medical ; Code: [id number] ; Contributor System: [email or web address] ; Last Updated: 01/27/2017 19:25 EDT ; Life Cycle Date: 01/27/2017 ; Life Cycle Status: Active ; Vocabulary: SNOMED CT Methicillin resistant Staphylococcus aureus (SNOMED CT :640922439 ) Name of Problem: Methicillin resistant Staphylococcus aureus ; Recorder: SYSTEM; Confirmation: Confirmed ; Classification: Medical ; Code: [id number] ; Last Updated: 09/20/2023 06:47 EST ; Life Cycle Date: 09/20/2023 ; Life Cycle Status: Active ; Vocabulary: SNOMED CT ; Comments: 09/20/2023 6:47 - SYSTEM This problem was added by Discern Expert. MRSA Positive (Patient Care : ) Name of Problem: MRSA Positive ; Recorder: SYSTEM; Confirmation: Confirmed ; Classification: Nursing ; Last Updated: 09/19/2023 10:32 EST ; Life Cycle Date: 09/19/2023 ; Life Cycle Status: Active ; Vocabulary: Patient Care ; Comments: 09/19/2023 10:32 - SYSTEM Problem added secondary to lab order - MRSA Positive being placed for this patient. Opioid use disorder, Severe (SNOMED CT :602183063 ) Name of Problem: Opioid use disorder, Severe ; Recorder: ROBERT MENDOZA DO; Confirmation: Confirmed ; Classification: Medical ; Code: [id number] ; Contributor System: [email or web address] ; Last Updated: 03/01/2017 15:02 EDT ; Life Cycle Status: Active ; Responsible Provider: ROBERT MENDOZA DO; Vocabulary: SNOMED CT Posttraumatic stress disorder (SNOMED CT :919921371 ) Name of Problem: Posttraumatic stress disorder ; Recorder: ROBERT MENDOZA DO; Confirmation: Confirmed ; Classification: Medical ; Code: [id number] ; Contributor System: [email or web address] ; Last Updated: 03/01/2017 15:02 EDT ; Life Cycle Status: Active ; Responsible Provider: ROBERT MENDOZA DO; Vocabulary: SNOMED CT PTSD (post-traumatic stress disorder) (SNOMED CT :007177427 ) Name of Problem: PTSD (post-traumatic stress disorder) ; Recorder: Monica Doll RN; Confirmation: Confirmed ; Classification: Patient/Family Stated ; Code: [id number] ; Contributor System: PowerChart ; Last Updated: 06/10/2016 19:47 EST ; Life Cycle Date: 06/10/2016 ; Life Cycle Status: Active ; Vocabulary: SNOMED CT Tobacco use disorder, Moderate (SNOMED CT :55444177 ) Name of Problem: Tobacco use disorder, Moderate ; Recorder: ROBERT MENDOZA DO; Confirmation: Confirmed ; Classification: Medical ; Code: [id number] ; Contributor System: PowerChart ; Last Updated: 03/01/2017 15:03 EDT ; Life Cycle Status: Active ; Responsible Provider: ROBERT MENDOZA DO; Vocabulary: SNOMED CT Vancomycin resistant enterococcus (SNOMED CT :411422472 ) Name of Problem: Vancomycin resistant enterococcus ; Recorder: SYSTEM; Confirmation: Confirmed ; Classification: Medical ; Code: [id number] ; Last Updated: 02/02/2016 06:33 EDT ; Life Cycle Date: 02/02/2016 ; Life Cycle Status: Active ; Vocabulary: SNOMED CT ; Comments: 02/02/2016 6:33 - SYSTEM This problem was added by Discern Expert. VRE Positive (Patient Care : ) Name of Problem: VRE Positive ; Recorder: SYSTEM; Confirmation: Confirmed ; Classification: Nursing ; Last Updated: 02/02/2016 06:34 EDT ; Life Cycle Date: 02/02/2016 ; Life Cycle Status: Active ; Vocabulary: Patient Care ; Comments: 02/02/2016 6:34 - SYSTEM Problem added secondary to lab order - VRE Positive being placed for this patient. Diagnoses(Active) Knee injury - Minor Date: 03/03/2024 ; Diagnosis Type: Reason For Visit ; Confirmation: Confirmed ; Clinical Dx: Knee injury - Minor ; Classification: Medical ; Clinical Service: Non-Specified ; Code: PNED ; Probability: 0 ; Diagnosis Code: [id number] Reason for Visit (As Of: 03/03/2024 10:58:52 E (more content not included)... [facility] XR KNEE LEFT 3 VIEWSon 03-03 XR KNEE LEFT 3 VIEWS EXAM DESCRIPTION: X R KNEE LEFT 3 VIEWS RadLex: XR KNEE 3 VIEWS LEFT CLINICAL HISTORY: Fall;PAIN. WHAT SYMPTOMS ARE YOU EXPERIENCING?; LATERAL SIDE LEFT KNEE PAIN S/P FALL YESTERDAY AT WORK. COMPARISON: 03/25/2017 FINDINGS: Bones: There is a subtle lucency at the lateral inferior margin of the patella seen only on the AP view, obscured on other views. Otherwise, no acute fracture. Joints: There is no dislocation. There is mild medial compartment joint space narrowing with osteophytosis and subchondral sclerosis. There is patellofemoral osteophytosis with subchondral sclerosis and cystic change. Soft tissues: Small joint effusion. No focal soft tissue swelling. IMPRESSION: Linear lucency at the distal lateral patella may represent a small fragment and is age indeterminate. Correlate with point tenderness, this can be further evaluated with CT if clinically warranted. Knee osteoarthritis most prominent at the patellofemoral compartment. Small joint effusion. Electronically signed by: Brianna Douglas MD 03/03/2024 11:32 AM EDT RP Technologist: ARMINDA Dictated By: BRIANNA DOUGLAS MD Signed By: BRIANNA DOUGLAS MD Signed Out: 03/03/24 11:32:30 [facility] 36on 02-11-2024 36 Recent Visits Date Type Provider Dept 01/11/24 Office Visit Jennifer R[facility] 11/12/23 Office Visit Roseline Thakkar DO [facility] Showing recent visits within past 365 days and meeting all other requirements Today's Visits Date Type Provider Dept 02/11/24 Appointment Roseline Thakkar DO [facility] Showing today's visits and meeting all other requirements Future Appointments No visits were found meeting these conditions. Showing future appointments within next 90 days and meeting all other requirements Requested Prescriptions Pending Prescriptions Disp Refills permethrin (Elimite) 5 % cream [Pharmacy Med Name: permethrin 5 % topical cream] 60 g 3 Sig: THOROUGHLY MASSAGE INTO SKIN FROM HEAD TO SOLES OF FEET ONE time. LEAVE ON FOR 8-14 Hours and THEN REMOVE BY THOROUGH WASHING. Provider: Roseline Thakkar DO [facility] [address] - [place], [place] - [address] [facility] [address] [facility] [address] [place], [place] - [address] [facility] [address] Verified pharmacy: yes Verified day(s) supplied: yes Verified refill(s) needed (previous prescription showing no refills in chart): Yes Have you received any controlled medications from any other provider? Overdue for visit: No If yes - patient scheduled? N/A Most recent labs completed in chart? N/A Normal [facility] Office Visiton 01-11-2024 Follow-up visit [id number] Kiana Hedrick 1970 F Date Provider Department Center 01/11/2024 [id number] ROCHA [facility] Family History Problem Relation Age of Onset No Known Problems Sister No Known Problems Son No Known Problems Maternal Grandmother No Known Problems Paternal Grandfather No Known Problems Brother No Known Problems Brother No Known Problems Brother Hyperlipidemia Father No Known Problems Mother No Known Problems Daughter No Known Problems Maternal Grandfather Cancer Father Comments: lung No Known Problems Sister High Blood Pressure Other No Known Problems Brother No Known Problems Paternal Grandmother No Known Problems Brother Diabetes Other No Known Problems Daughter No Known Problems Sister Family Status - Relation Status Age at Sister Alive Son Alive Maternal Grandmother Alive Paternal Grandfather Brother Alive Brother Alive Brother Alive Father Mother Alive Daughter Alive Maternal Grandfather Sister Alive Other Brother Alive Paternal Grandmother Brother Alive Daughter Alive Sister Alive Level of Service:[id number] CO OFFICE/OUTPATIENT ESTABLISHED [facility] 10 MIN Reason for Visit and Comments: Neck Mass [804] - Lymph node, x 3 wks, bilateral, painful Normal [facility] Progress Noteon 01-11-2024 Progress Note [facility] [address] [facility] [address] Dept: [phone] Dept Reason for Visit: Neck Mass (Lymph node, x 3 wks, bilateral, painful) Assessment and Plan 1. Lymphadenopathy, cervical - US head neck soft tissue Follow up if symptoms worsen or fail to improve. Subjective HPI Pt presents today for evaluation of lymph nodes in her neck. Was seen by the licensed journeyman electrician and was told to follow up with PCP for this. Pt states she has noticed the enlarged lymph nodes for about a month. She did have an abscess drained on her head prior to this. Reports neck pain but has a chronic hx of this. No fevers or chills. No night sweats. No additional concerns today. Review of Systems Constitutional: Negative for activity change, appetite change, chills and fever. Respiratory: Negative for chest tightness and shortness of breath. Cardiovascular: Negative for chest pain and palpitations. Gastrointestinal: Negative for abdominal pain and blood in stool. Neurological: Negative for dizziness and light-headedness. Hematological: Positive for adenopathy. Allergies Allergen Reactions Penicillamine Swelling Bumps everywhere Aspirin Codeine Swelling Doxycycline Rash Other reaction(s): Itching Ibuprofen Nausea Only Other reaction(s): GI Upset Latex Nausea Only, Nausea And Vomiting and Rash Other reaction(s): Unknown Lurasidone Hcl Naproxen Swelling Other reaction(s): Intolerance, Upset Stomach Facial swelling Penicillins Itching Other reaction(s): swelling, itching Any cillins per patient Any cillins per patient Prochlorperazine Unknown Sulfamethoxazole-Trimet [facility] Outpatient Medications Prior to Visit Medication Sig Dispense Refill albuterol 108 (90 Base) MCG/ACT inhaler Inhale 2 puffs if needed. amLODIPine (Norvasc) 5 MG tablet Take 1 tablet (5 mg) by mouth daily. 90 tablet 3 CeleXA 40 MG tablet Take 40 mg by mouth daily. famotidine (Pepcid) 40 MG tablet Take 0.5 tablets (20 mg) by mouth 2 times daily. 90 tablet 3 ferrous sulfate 325 (65 Fe) MG tablet Take 1 tablet (325 mg) by mouth daily (with breakfast). 90 tablet 3 hydrOXYzine pamoate (Vistaril) 50 MG capsule Take 50 mg by mouth. montelukast (Singulair) 10 MG tablet Take 1 tablet (10 mg) by mouth Nightly. 90 tablet 3 naltrexone (Depade) 50 MG tablet Take 50 mg by mouth daily. permethrin (Elimite) 5 % cream THOROUGHLY MASSAGE INTO SKIN FROM HEAD TO SOLES OF FEET ONE time. LEAVE ON FOR 8-14 Hours and THEN REMOVE BY THOROUGH WASHING. 60 g 3 polyethylene glycol, PEG, 3350 (Miralax) 17 g packet Dissolve seventeen (17) grams of powder in 8 ounce of water and drink once a day 100 each 3 Selenium Sulfide 2.25 % shampoo 1 luther, Topical, Q3DAYS, # 180 mL, Refill(s) 0, Date: 09/17/23 6:46:00 PM EST 180 mL 3 topiramate (Topamax) 100 MG tablet Take 100 mg by mouth 2 times daily. No facility-administered medications prior to visit. Past Medical History: Diagnosis Date SEGUNDO (acute kidney injury) ([facility]) 01/06/2016 Anxiety Asthma Bipolar disorder (HCC) Bipolar I disorder (HCC) 11/16/2019 control Mirena 10/10/14 BMI 33.0-33.9,adult Chronic back pain Degeneration of lumbar intervertebral disc Essential hypertension, benign Fibromyalgia GERD (gastroesophageal reflux disease) Hard of hearing has hearing aids Hepatitis C Labs 08/2017 and 12/2017 NO viral load; per ID, no follow up needed unless new exposures Hepatomegaly 04/20/2016 Heroin abuse (HCC) Osteomyelitis (HCC) thoracic- pseudomonas (December--@ [facility]) Posttraumatic stress disorder Pure hypercholesterolemia Pure hypercholesterolemia Thyroid cyst Trichimoniasis 04/2015 Social History Tobacco Use Smoking status: Former Current packs/day: 0.00 Types: Cigarettes Quit date: 11/06/2014 Years since quittin.1 Smokeless tobacco: Never Tobacco comments: Quit smoking: Vape/e-cigarettes Substance Use Topics Alcohol use: No Alcohol/week: 0.0 standard drinks of alcohol Past Surgical History: Procedure Laterality Date CHOLECYSTECTOMY TUBAL LIGATION 2004 Family History Problem Relation Name Age of Onset No Known Problems Sister No Known Problems Son No Known Problems Maternal Grandmother No Known Problems Paternal Grandfather No Known Problems Brother No Known Problems Brother No Known Problems Brother Hyperlipidemia Father No Known Problems Mother No Known Problems Daughter No Known Problems Maternal Grandfather Cancer Father lung No Known Problems Sister High Blood Pressure Other No Known Problems Brother No Known Problems Paternal Grandmother No Known Problems Brother Diabetes Other No Known Problems Daughter No Known Problems Sister Objective BP 95/65 Pulse 64 Ht 5' 6 (1.676 m) Wt 179 lb (81.2 kg) SpO2 96% BMI 28.89 kg/m? Physical Exam Vitals and nursing note reviewed. Constitutional: (more content not included)... [facility] 36on 12-08-2023 [address] [facility] 36 Name of caller: Kiana ambrosio Contact phone number: [phone] Relationship to Patient: Patient Provider: Practice: [facility] Chief Complaint/Reason for Call: Patient called in regarding voicemail left. Patient stated she only can come in the afternoon, scheduled 12/15 with . Please advise. Best time of day caller can be reached: N/A Patient advised that office/PCP has 24-48 business hours to return their call: N/A [facility] 36 Sent mychart message [facility] 36 Left message on patient's voicemail asking her to call back and schedule an office visit. If patient calls, please schedule first available [address] [facility] [address] [facility] 36on 12-07-[address] [facility] 36 Name of caller: Ramon her Contact phone number: [phone] Relationship to Patient: [facility] Provider: Dr. Thakkar Practice[place] [facility] Chief Complaint/Reason for Call: (pt was not on the line to triage) PT was seen downstairs at [facility] today and it was discovered that pt has palpable lymph nodes and was advised to be seen immediately. The office states they can fax any clinical documentation if need be. Please advise pt on next steps. Best time of day caller can be reached: any Patient advised that office/PCP has 24-48 business hours to return their call: Yes [facility] Clinical Interventi ons-Texton 09-21-2023 Pharmacy Clinical Interventions-Text Pharmacy Clinical Interventions Entered On: 09/21/2023 9:48 EST Performed On: 09/21/2023 9:47 EST by Joanne Morley RPh Interventions Intervention Type Pharmacy : ED - Culture Call Back Pharmacy Order Initiated By : Pharmacist Clinical Importance Pharmacy : Potentially minor Prescriber Response Pharmacy : Corrected prior to contact Patient Clinical Outcome Pharmacy : Avoided potential risk Pharmacist Intervention Time : 5 Pharmacy Additional Information : / HR: see results callback worklist Joanne Morley RPh - 09/21/2023 9:47 EST [facility] MISCon 09-20-[address] [facility] pt of Laboratory Services [address] [place] [phone] Name: KAMLA HEDRICK : 1970 Admitting Provider: Gender Female Financial [phone] : Number: Danyell ORTEZ; Intake 2; 1 n: Admit 09/17/2023 Date: Discharge 09/17/2023 Microbiology Date: PROCEDURE: Mindy SMITH [] SOURCE: WOUND BODY SITE: COLLECTED DATE/TIME: 09/17/2023 18:49 EST RECEIVED DATE/TIME: 09/18/2023 14:50 EST START DATE/TIME: 09/18/2023 14:50 EST FREE TEXT SOURCE: OCCIPITAL SCALP LESION ORDERING PHYSICIAN: CARLTON SOTO MD FINAL REPORTS Final Report [] Verified Date/Time: 09/20/2023 09:49 EST Few Pseudomonas putida Many Staphylococcus aureus *Note Methicillin Resistance* STAINS GS [] Verified Date/Time: 09/18/2023 15:19 EST Rare Erythrocytes seen No White Blood Cells seen. Many Gram Positive Cocci. SUSCEPTIBILITY RESULTS Pseudomonas putida Antibiotic RAINER Dil Ceftriaxone 8 Ciprofloxacin <0.25 Gentamicin <=1 Piperacillin/Tazobactam <=4 Trimethoprim/Sulfametho xazole 80 ____ L=Low, H= High, *= Abnormal, C=Critical, f=Footnote, c=Corrected, i=Interp Data Name: RYLEY October Print 09/20/2023 09:49 EST [facility] [address] [place] [phone] Name: RYLEY October : 1970 Admitting Provider: Gender Female Financial [phone] : Number: Danyell ORTEZ; Intake 2; 1 n: Admit 09/17/2023 Date: Discharge 09/17/2023 Microbiology Date: SUSCEPTIBILITY RESULTS Pseudomonas putida Antibiotic RAINER Interp Ceftriaxone Susceptible Ciprofloxacin Susceptible Gentamicin Susceptible Piperacillin/Tazobactam Susceptible Trimethoprim/Sulfametho xazole Resistant Staphylococcus aureus Antibiotic RAINER Dil Clindamycin <0.25 Erythromycin >=8 Gentamicin <=0.5 Oxacillin >=4 Tetracycline >=16 Trimethoprim/Sulfametho xazole >=320 Vancomycin <=0.5 Staphylococcus aureus Antibiotic RAINER Interp Amp/Sulbactam Resistant Cefazolin Resistant Clindamycin Susceptible Erythromycin Resistant Gentamicin Susceptible Oxacillin Resistant Tetracycline Resistant Trimethoprim/Sulfametho xazole Resistant Vancomycin Susceptible ____ L=Low, H= High, *= Abnormal, C=Critical, f=Footnote, c=Corrected, i=Interp Data Name: RYLEY October Print 09/20/2023 09:49 EST Date/Time: [facility] Comment on above: Performed By: #### [id number] ####[facility] [id number] [place] [address] Medical Director: Demetrio Rodrigez MD Pharmacy Clinical Interventi ons-Texton 09-20-2023 Pharmacy Clinical Interventions-Text Pharmacy Clinical Interventions Entered On: 09/20/2023 11:02 EST Performed On: 09/20/2023 11:02 EST by Joanne Morley RPh Interventions Intervention Type Pharmacy : ED - Culture Call Back Pharmacy Order Initiated By : Pharmacist Clinical Importance Pharmacy : Potentially major Prescriber Response Pharmacy : Accepted Patient Clinical Outcome Pharmacy : Avoided potential risk Pharmacist Intervention Time : 10 Pharmacy Additional Information : 3/4 HR: see results callback worklist Joanne Morley RPh - 09/20/2023 11:02 EST [facility] ED Adult Data - Texton 09-16 ED Adult Data - Text ED Adult Data Enter ed On: 09/17/2023 18:34 EST Performed On: 09/17/2023 18:25 EST by Agustina Goodman RN Arrival Information Information Given by : Patient Referral Source ED : Home [facility] Mode of Arrival : Car / Walk-In Agustina Goodman RN - 09/17/2023 18:33 EST Screening-General Meds Triage : NA, Other Accept Blood Products if Necessary : Unknown/Other Immunizations Current : Unknown Last Tetanus : Unknown Currently or : Unknown Agustina Goodman RN - 09/17/2023 18:33 EST Depression Screening Patient able to verbalize? : Yes Feeling Down, Depressed, Hopeless : Not at all Little Interest - Pleasure in Activities : Not at all Initial Depression Screen Score : 0 Depression Screening Score 0 : No IP Pt being evaluated or treated for BH conditions : No Agustina Goodman RN - 09/17/2023 18:33 EST Screening-Safety Abuse/Violence Concerns? : Patient denies Does the patient have a medically restricted extremity? : No Agustina Goodman RN - 09/17/2023 18:33 EST Problem List Problem List obtained from : Patient Agustina Goodman RN - 09/17/2023 18:33 EST (As Of: 09/17/2023 18:34:12 EST) Problems(Active) Bipolar 1 disorder (SNOMED [address] :6756927198 ) Name of Problem: Bipolar 1 disorder ; Recorder: Monica Doll RN; Confirmation: Confirmed ; Classification: Patient/Family Stated ; Code: 5794270546 ; Contributor System: [email or web address] ; Last Updated: 06/10/2016 19:47 EST ; Life Cycle Date: 06/10/2016 ; Life Cycle Status: Active ; Vocabulary: SNOMED CT Crohns disease (SNOMED CT :2017032974 ) Name of Problem: Crohns disease ; Recorder: Zuleika Wagner RN; Confirmation: Confirmed ; Classification: Medical ; Code: 2552926339 ; Contributor System: [email or web address] ; Last Updated: 01/27/2017 19:25 EDT ; Life Cycle Date: 01/27/2017 ; Life Cycle Status: Active ; Vocabulary: SNOMED CT Opioid use disorder, Severe (SNOMED CT :000614157 ) Name of Problem: Opioid use disorder, Severe ; Recorder: ROBERT MENDOZA DO; Confirmation: Confirmed ; Classification: Medical ; Code: 279444565 ; Contributor System: [email or web address] ; Last Updated: 03/01/2017 15:02 EDT ; Life Cycle Status: Active ; Responsible Provider: ROBERT MENDOZA DO; Vocabulary: SNOMED CT Posttraumatic stress disorder (SNOMED CT :426982105 ) Name of Problem: Posttraumatic stress disorder ; Recorder: ROBERT MENDOZA DO; Confirmation: Confirmed ; Classification: Medical ; Code: 190477842 ; Contributor System: [email or web address] ; Last Updated: 03/01/2017 15:02 EDT ; Life Cycle Status: Active ; Responsible Provider: ROBERT MENDOZA DO; Vocabulary: SNOMED CT PTSD (post-traumatic stress disorder) (SNOMED CT :078807704 ) Name of Problem: PTSD (post-traumatic stress disorder) ; Recorder: Monica Doll RN; Confirmation: Confirmed ; Classification: Patient/Family Stated ; Code: 078422883 ; Contributor System: [email or web address] ; Last Updated: 06/10/2016 19:47 EST ; Life Cycle Date: 06/10/2016 ; Life Cycle Status: Active ; Vocabulary: SNOMED CT Tobacco use disorder, Moderate (SNOMED CT :85363716 ) Name of Problem: Tobacco use disorder, Moderate ; Recorder: ROBERT MENDOZA DO; Confirmation: Confirmed ; Classification: Medical ; Code: 08453781 ; Contributor System: Aisle50 ; Last Updated: 03/01/2017 15:03 EDT ; Life Cycle Status: Active ; Responsible Provider: ROBERT MENDOZA DO; Vocabulary: SNOMED CT Vancomycin resistant enterococcus (SNOMED CT :472234899 ) Name of Problem: Vancomycin resistant enterococcus ; Recorder: SYSTEM; Confirmation: Confirmed ; Classification: Medical ; Code: 962000900 ; Last Updated: 02/02/2016 06:33 EDT ; Life Cycle Date: 02/02/2016 ; Life Cycle Status: Active ; Vocabulary: SNOMED CT ; Comments: 02/02/2016 6:33 - SYSTEM This problem was added by Discern Expert. VRE Positive (Patient Care : ) Name of Problem: VRE Positive ; Recorder: SYSTEM; Confirmation: Confirmed ; Classification: Nursing ; Last Updated: 02/02/2016 06:34 EDT ; Life Cycle Date: 02/02/2016 ; Life Cycle Status: Active ; Vocabulary: Patient Care ; Comments: 02/02/2016 6:34 - SYSTEM Problem added secondary to lab order - VRE Positive being placed for this patient. Diagnoses(Active) Neck pain Date: 09/17/2023 ; Diagnosis Type: Reason For Visit ; Confirmation: Confirmed ; Clinical Dx: Neck pain ; Classification: Medical ; Clinical Service: Non-Specified ; Code: PNED ; Probability: 0 ; Diagnosis Code: [id number] Procedure History ED Devices Present on Arrival To ED : None Urinary Catheter Present on Admit to ED : No Agustina Goodman RN - 09/17/2023 18:33 EST - Procedure History (As Of: 09/17/2023 18:34:12 EST) Anesthesia Minutes: 0 ; Procedure Name: none ; Procedure Minutes: 0 Anesthesia Minutes: 0 ; Procedure Name: gallbladder ; Procedure Minutes: 0 Social History Does pt have any alcohol,drugs or tobacco : No Do you consume Alcohol : No Social History obtained from : Patient Agustina Goodman RN - 09/17/2023 18:3 (more content not included)... [facility] ED Discharge Educationon ED Discharge Education Dermatology Folliculitis: Care Instructions Overview Folliculitis (say tyb-SST-rhl-LY-tus) is an inflammation of the pouches (follicles) in the skin where hair grows. It can occur on any part of the body, but it is most common on the scalp, face, armpits, and groin. Bacteria, such as those found in a hot tub, can cause folliculitis. But folliculitis can also be caused by other organisms, such as fungi or parasites. Folliculitis begins as a red, tender area near a strand of hair. The skin can itch or burn and may drain pus or blood. Sometimes folliculitis can lead to more serious skin infections. Your doctor usually can treat mild folliculitis with an antibiotic cream or ointment. If you have folliculitis on your scalp, you may use a medicated shampoo. Antibiotics you take as pills can treat infections deeper in the skin. Other treatments that may be used include antifungal and antiparasitic medicines. Folliculitis may be caused by ingrown hairs from shaving. One solution is to stop shaving. If that isn't an option, using an electric razor that doesn't shave so close may help. Laser treatment may also be an option. Laser treatment destroys the hair follicle so hair will no longer grow in the treated area. Follow-up care is a lambert part of your treatment and safety. Be sure to make and go to all appointments, and call your doctor if you are having problems. It's also a good idea to know your test results and keep a list of the medicines you take. How can you care for yourself at home? ? Take your medicine exactly as prescribed. If your doctor prescribed antibiotics, take them as directed. Do not stop taking them just because you feel better. You need to take the full course of antibiotics. ? To help with itching or pain, put a warm, moist cloth (like a clean washcloth) on the area for 5 to 10 minutes, 3 to 6 times a day. ? Do not share your razor, towel, or washcloth. That can spread folliculitis. ? If folliculitis is caused by shaving, try to avoid shaving for at least a month. If that isn't an option, use an electric razor that doesn't shave so close. Or if you need a clean shave, use shaving cream or gel and always shave in the direction that the hair grows. When should you call for help? Call your doctor now or seek immediate medical care if: ? You have symptoms of infection, such as: ? Increased pain, swelling, warmth, or redness. ? Red streaks leading from the area. ? Pus draining from the area. ? A fever. Watch closely for changes in your health, and be sure to contact your doctor if: ? You do not get better as expected. Where can you learn more? Go to https://www.ClrTouch. net/patientEd Enter M257 in the search box to learn more about Folliculitis: Care Instructions. Current as of: June 02, 2021 Content Version: 13.3 ? [employer]. Care instructions adapted under license by your healthcare professional. If you have questions about a medical condition or this instruction, always ask your healthcare professional. [employer] disclaims any warranty or liability for your use of this information. Ear, Nose and Throat Swollen Lymph Nodes: Care Instructions Your Care Instructions Lymph nodes are small, scruggs-shaped glands throughout the body. They help your body fight germs and infections. Lymph nodes often swell when there is a problem such as an injury, infection, or tumor. ? The nodes in your neck, under your chin, or behind your ears may swell when you have a cold or sore throat. ? An injury or infection in a leg or foot can make the nodes in your groin swell. ? Sometimes medicine can make lymph nodes swell, but this is rare. Treatment depends on what caused your nodes to swell. Usually the nodes return to normal size without a problem. Follow-up care is a lambert part of your treatment and safety. Be sure to make and go to all appointments, and call your doctor if you are having problems. It's also a good idea to know your test results and keep a list of the medicines you take. How can you care for yourself at home? ? Take your medicines exactly as prescribed. Call your doctor if you think you are having a problem with your medicine. ? Avoid irritation. ? Do not squeeze or pick at the lump. ? Do not stick a needle in it. ? Prevent infection. Do not squeeze, drain, or puncture a painful lump. Doing this can irritate or inflame the lump, push any existing infection deeper into the skin, or cause severe bleeding. ? Get extra rest. Slow down just a little from your usual routine. ? Drink plenty of fluids. If you have kidney, heart, or liver disease and have to limit fluids, talk with your doctor before you increase the amount of fluids you drink. ? Take an xuks-mro-uhbptrw pain medicine, such as acetaminophen (Tylenol), ibuprofen (Advil, Motrin), or naproxen (Aleve). Read and follow all instructions on the label. ? Do not take two or more pain medicines at the same time unless the (more content not included)... [facility] ED Emergency Severity Index Adult-Texton 09-17-2023 ED Emergency Severity Index Adult-Text AIDEN - Adult Entered On: 09/17/2023 18:30 EST Performed On: 09/17/2023 18:25 EST by Agustina Goodman RN DCP GENERIC CODE Visit Reason : swollen lymph/glands, sent from Tracking Triage Date/Time : 09/17/2023 18:30 EST Tracking Reg Status : Requested Tracking Acuity : [id number] Tracking Group : Agustina Alba RN - 09/17/2023 18:30 EST [facility] ED Nrsing Adlt Triage Sep Sc rning - Texton 09-17-2023 ED Nrsing Adlt Triage Sep Scrning - Text ED Nursing Adult Triage Sepsis Screening Tool Entered On: 09/17/2023 18:30 EST Performed On: 09/17/2023 18:25 EST by Agustina Goodman RN Adult Sepsis Screening Sepsis Infection Screening ED : No Agustina Goodman RN - 09/17/2023 18:30 EST [facility] ED Patient Summaryon 024 ED Patient Summary [facility] Emergency Department Discharge Instructions [address] [place] [address] (Patient Copy) Name: RYLEY October : 1970 Allergies: penicillins; naproxen; ibuprofen; doxycycline; Compazine; Bactrim Diagnosis: Bacterial folliculitis; Cervical lymphadenopathy; Skin lesion of scalp Visit Date: 09/17/2023 18:21:46 Current Date Time: 09/17/2023 19:07:16 Address: [address] [place] [address] Primary Care Provider: Name: ROBY SENA Emergency Department Care Providers: Primary Physician: CARLTON SOTO MD Thank you for choosing [facility] for your emergency care. You are very important to us. Our goal is to demonstrate our high quality medical care, and provide you with a very good patient experience. You may receive a survey about our service. Please take the time to complete the survey and return it so we can continue to enhance our service. Thank you again for allowing the [facility] Emergency Department to care for your medical needs. If you have questions about your care or follow up information please contact us at [phone]. Follow-Up Instructions KAMLA HEDRICK has been given these follow-up instructions: With: Address: When: [address] NOT ON STAFF [address] [facility] [address] [place] [phone] Within 3 to 5 days Patient Education Materials RYLEY KAMLA D has been given the following patient education materials: Swollen Lymph Nodes: Care Instructions Your Care Instructions Lymph nodes are small, scruggs-shaped glands throughout the body. They help your body fight germs and infections. Lymph nodes often swell when there is a problem such as an injury, infection, or tumor. ? The nodes in your neck, under your chin, or behind your ears may swell when you have a cold or sore throat. ? An injury or infection in a leg or foot can make the nodes in your groin swell. ? Sometimes medicine can make lymph nodes swell, but this is rare. Treatment depends on what caused your nodes to swell. Usually the nodes return to normal size without a problem. Follow-up care is a lambert part of your treatment and safety. Be sure to make and go to all appointments, and call your doctor if you are having problems. It's also a good idea to know your test results and keep a list of the medicines you take. How can you care for yourself at home? ? Take your medicines exactly as prescribed. Call your doctor if you think you are having a problem with your medicine. ? Avoid irritation. ? Do not squeeze or pick at the lump. ? Do not stick a needle in it. ? Prevent infection. Do not squeeze, drain, or puncture a painful lump. Doing this can irritate or inflame the lump, push any existing infection deeper into the skin, or cause severe bleeding. ? Get extra rest. Slow down just a little from your usual routine. ? Drink plenty of fluids. If you have kidney, heart, or liver disease and have to limit fluids, talk with your doctor before you increase the amount of fluids you drink. ? Take an bugi-enb-hqnjerg pain medicine, such as acetaminophen (Tylenol), ibuprofen (Advil, Motrin), or naproxen (Aleve). Read and follow all instructions on the label. ? Do not take two or more pain medicines at the same time unless the doctor told you to. Many pain medicines have acetaminophen, which is Tylenol. Too much acetaminophen (Tylenol) can be harmful. When should you call for help? Call your doctor now or seek immediate medical care if: ? You have worse symptoms of infection, such as: ? Increased pain, swelling, warmth, or redness. ? Red streaks leading from the area. ? Pus draining from the area. ? A fever. Watch closely for changes in your health, and be sure to contact your doctor if: ? Your lymph nodes do not get smaller or do not return to normal. ? You do not get better as expected. Where can you learn more? Go to https://www.ClrTouch. net/patientEd Enter A919 in the search box to learn more about Swollen Lymph Nodes: Care Instructions. Current as of: August 27, 2021 Content Version: 13.3 ? [employer]. Care instructions adapted under license by your healthcare professional. If you have questions about a medical condition or this instruction, always ask your healthcare professional. [employer] disclaims any warranty or liability for your use of this information. Folliculitis: Care Instructions Overview Folliculitis (say xap-RJV-exf-LY-tus) is an inflammation of the pouches (follicles) in the skin where hair grows. It can occur on any part of the body, but it is most common on the scalp, face, armpits, and groin. Bacteria, (more content not included)... [facility] ED Physician Reporton 2023 ED Physician Report RYLEY, October :1970 Registration Date:09/17/2023 History of Present Illness swollen glands 52-year-old female presents with swollen glands on the left, she was seen at the urgent care and sent here for further evaluation. In June she had lice and July and prior to August she had multiple sores in her head all over her head. She thought they were from the lice but she was told the lice were gone. Last night she went to the urgent care in [facility] because she felt a lump on the left side of her neck. She has no fever no chills she is eating and drinking fine. Her primary care doctor is Dr. Heavenly Rider, she called for an appointment and cannot be seen until October. She vapes, no alcohol no drugs, no recent weight loss if anything she has been gaining weight. No night sweats. No chest pain or shortness of breath no body aches. Review of Systems Constitutional symptoms: [Negative except as documented in HPI.] Skin symptoms: [Negative except as documented in HPI.] Eye symptoms: [Negative except as documented in HPI.] ENMT symptoms: [Negative except as documented in HPI.] Respiratory symptoms: [Negative except as documented in HPI.] Cardiovascular symptoms: [Negative except as documented in HPI.] Gastrointestinal symptoms: [Negative except as documented in HPI.] Genitourinary symptoms: [Negative except as documented in HPI.] Musculoskeletal symptoms: [Negative except as documented in HPI.] Psychiatric symptoms: [Negative except as documented in HPI.] Endocrine symptoms: [Negative except as documented in HPI.] Hematologic/Lymphatic symptoms: [Negative except as documented in HPI.] Allergy/Immunologic symptoms: [Negative except as documented in HPI.] Neurologic symptoms: [Negative except as documented in HPI.] Additional review of systems information: [All other systems reviewed and otherwise negative, Systems negative except as stated in the H&P.] Physical Exam Vitals & Measurements Initial: T: 36.5 ?C (Oral) HR: 75 (Peripheral) BP: 123/79 RR: 18 SpO2: 97% O2 Therapy: Room air Vital Signs: [Per nurse's notes.] General: [Alert, no acute distress.] Skin: [Warm, dry, pink.] Head: [Normocephalic multiple pustules occipital scalp. greater on the left. When palpating 1 pustule broke open was sent for culture..] Neck: [Supple, trachea midline. 3 pea-sized palpable lymph nodes posterior cervical chain. Nontender. No meningeal signs. ] Eye: [Pupils are equal, round and reactive to light.] Cardiovascular: [Regular rate and rhythm, normal peripheral perfusion.] Respiratory: [Lungs are clear to auscultation, respirations are non-labored.] Abdomen -soft no tenderness. Lymphatics -left cervical adenopathy, no axillary adenopathy no epitrochlear adenopathy no adenopathy of groin. Psychiatric: [Cooperative.] Neurological: [Alert and oriented to person, place, time, and situation.] Medical Decision Making Patient with folliculitis of the scalp with resultant lymphadenopathy. Due to her allergy to doxycycline, penicillin and Bactrim we will treat her with Keflex. She has taken Keflex in the past. I have also prescribed selenium sulfide shampoo. A specimen from the pustule drainage was sent for culture. If this grows something that is not treated by Keflex we will need to call her. She understands this process. She will call Dr. Rider on Wednesday for close follow-up. If she develops fever or any increase in the lymph node size or has any other concerns she will return here immediately. Reexamination/Reevaluat ion Systolic Blood Pressure: 123 mmHg Diastolic Blood Pressure: 79 mmHg Temperature Oral: 36.5 degC Respiratory Rate: 18 br/min SpO2: 97 % Oxygen Therapy: Room air Peripheral Pulse Rate: 75 bpm Discharge/Plan *Discharge Disposition NO DISCHARGE DISPOSITION DOCUMENTED Patient Education Lymph Nodes: Swollen Folliculitis Follow Up With When Contact Information SHIRA RIDER DR NOT ON STAFF Within 3 to [address] [place] [phone] Additional Instructions: Assessment This Visit Diagnosis Bacterial folliculitis L73.8 Cervical lymphadenopathy R59.0 Skin lesion of scalp L98.9 Orders: cephalexin(cephalexin 500 mg oral capsule), 500 mg= 1 caps, ORAL, QID selenium sulfide topical(selenium sulfide 2.25% topical shampoo), 1 luther, Topical, Q3DAYS C MISC(MISCELLANEOUS CULTURE), ROUTINE, BRITTANY HARRELL, [place], 09/17/2023 18:48:00 EST, Specimen type: WOUND, Occipital scalp lesion Problem List/Past Medical History Ongoing Crohns disease Opioid use disorder, Severe Posttraumatic stress disorder Tobacco use disorder, Moderate Vancomycin resistant enterococcus Procedure/Surgical History gallbladder none Medication Administration Administered: Medications: Keflex, 500 mg, ORAL (09/17/2023 18:57 EST) Medication Reconciliation New cephalexin (cephalexin 500 mg oral capsule)1 Capsu (more content not included)... [facility] ED Progress Noteon ED Progress Note 1825 pt presents to ED ambulatory from urgent care for neck pain/lymph swelling. states 7/10 pain since Wednesday and went to urgent care who sent her here for further work up. denies sore throat, fever/chills, chest pain, SOB, abd pain, or any other sx at this time. VSS. a/ox3. Dr. Soto in to assess. culture swab obtained by Dr. Soto sent to lab pt medicated per MD order. tolerated well. 1905 Patient discharged from ED with written discharge instructions and RX x2. Patient educated appropriately. Patient voices no question or concerns at this time. Pt ambulatory with steady gait out to private vehicle. [facility] ED Triage Adult-Texton 09-16 ED Triage Adult-Text ED Triage Entered O n: 09/17/2023 18:33 EST Performed On: 09/17/2023 18:25 EST by Agustina Goodman RN Triage (As Of: 09/17/2023 18:33:32 EST) Problems(Active) Bipolar 1 disorder (SN[address] :9663990940 ) Name of Problem: Bipolar 1 disorder ; Recorder: Monica Doll RN; Confirmation: Confirmed ; Classification: Patient/Family Stated ; Code: [id number] ; Contributor System: SportingoChart ; Last Updated: 06/10/2016 19:47 EST ; Life Cycle Date: 06/10/2016 ; Life Cycle Status: Active ; Vocabulary: SNOMED CT Crohns disease (SNOMED CT :4554302397 ) Name of Problem: Crohns disease ; Recorder: Zuleika Wagner RN; Confirmation: Confirmed ; Classification: Medical ; Code: [id number] ; Contributor System: PowerChart ; Last Updated: 01/27/2017 19:25 EDT ; Life Cycle Date: 01/27/2017 ; Life Cycle Status: Active ; Vocabulary: SNOMED CT Opioid use disorder, Severe (SNOMED CT :775120445 ) Name of Problem: Opioid use disorder, Severe ; Recorder: ROBERT MENDOZA DO; Confirmation: Confirmed ; Classification: Medical ; Code: 811050306 ; Contributor System: PowerChart ; Last Updated: 03/01/2017 15:02 EDT ; Life Cycle Status: Active ; Responsible Provider: ROBERT MENDOZA DO; Vocabulary: SNOMED CT Posttraumatic stress disorder (SNOMED CT :037844959 ) Name of Problem: Posttraumatic stress disorder ; Recorder: ROBERT MENDOZA DO; Confirmation: Confirmed ; Classification: Medical ; Code: 597763926 ; Contributor System: Aisle50 ; Last Updated: 03/01/2017 15:02 EDT ; Life Cycle Status: Active ; Responsible Provider: ROBERT MENDOZA DO; Vocabulary: SNOMED CT PTSD (post-traumatic stress disorder) (SNOMED CT :082142996 ) Name of Problem: PTSD (post-traumatic stress disorder) ; Recorder: Monica Doll RN; Confirmation: Confirmed ; Classification: Patient/Family Stated ; Code: 744827201 ; Contributor System: Aisle50 ; Last Updated: 06/10/2016 19:47 EST ; Life Cycle Date: 06/10/2016 ; Life Cycle Status: Active ; Vocabulary: SNOMED CT Tobacco use disorder, Moderate (SNOMED CT :22400757 ) Name of Problem: Tobacco use disorder, Moderate ; Recorder: ROBERT MENDOZA DO; Confirmation: Confirmed ; Classification: Medical ; Code: 51004116 ; Contributor System: SportingoChart ; Last Updated: 03/01/2017 15:03 EDT ; Life Cycle Status: Active ; Responsible Provider: ROBERT MENDOZA DO; Vocabulary: SNOMED CT Vancomycin resistant enterococcus (SNOMED CT :009086185 ) Name of Problem: Vancomycin resistant enterococcus ; Recorder: SYSTEM; Confirmation: Confirmed ; Classification: Medical ; Code: 836403306 ; Last Updated: 02/02/2016 06:33 EDT ; Life Cycle Date: 02/02/2016 ; Life Cycle Status: Active ; Vocabulary: SNOMED CT ; Comments: 02/02/2016 6:33 - SYSTEM This problem was added by Discern Expert. VRE Positive (Patient Care : ) Name of Problem: VRE Positive ; Recorder: SYSTEM; Confirmation: Confirmed ; Classification: Nursing ; Last Updated: 02/02/2016 06:34 EDT ; Life Cycle Date: 02/02/2016 ; Life Cycle Status: Active ; Vocabulary: Patient Care ; Comments: 02/02/2016 6:34 - SYSTEM Problem added secondary to lab order - VRE Positive being placed for this patient. Diagnoses(Active) Neck pain Date: 09/17/2023 ; Diagnosis Type: Reason For Visit ; Confirmation: Confirmed ; Clinical Dx: Neck pain ; Classification: Medical ; Clinical Service: Non-Specified ; Code: PNED ; Probability: 0 ; Diagnosis Code: [id number] (As Of: 09/17/2023 18:33:32 EST) Allergies (Active) Bactrim Estimated Onset Date: Unspecified ; Created By: Corina Cheng RN; Reaction Status: Active ; Category: Drug ; Substance: Bactrim ; Type: Allergy ; Updated By: Corina Cheng RN; Reviewed Date: 09/17/2023 18:32 EST Compazine Estimated Onset Date: Unspecified ; Created By: Zuleika Wagner RN; Reaction Status: Active ; Category: Drug ; Substance: Compazine ; Type: Allergy ; Updated By: Zuleika Wagner RN; Reviewed Date: 09/17/2023 18:32 EST doxycycline Estimated Onset Date: Unspecified ; Reactions: Itching ; Created By: Ramya Metzger RN; Reaction Status: Active ; Category: Drug ; Substance: doxycycline ; Type: Allergy ; Updated By: Rayma Metzger RN; Reviewed Date: 09/17/2023 18:32 EST ibuprofen Estimated Onset Date: Unspecified ; Created By: Corina Cheng RN; Reaction Status: Active ; Category: Drug ; Substance: ibuprofen ; Type: Allergy ; Updated By: Corina Cheng RN; Reviewed Date: 09/17/2023 18:32 EST naproxen Estimated Onset Date: Unspecified ; Created By: Corina Cheng RN; Reaction Status: Active ; Category: Drug ; Substance: naproxen ; Type: Allergy ; Updated By: Corina Cheng RN; Reviewed Date: 09/17/2023 18:32 EST penicillins Estimated Onset Date: Unspecified ; Created By: Corina Cheng RN; Reaction Status: Active ; Category: Drug ; Substance: penicillins ; Type: Allergy ; Updated By: Corina Cheng RN; Reviewed Date: 09/17/2023 18:32 EST Vitals/Ht/Wt Temperature Oral : 36.5 degC Pulse Rate : 75 bpm Respiratory (more content not included)... [facility] CNOVon 06-25-2023 CNOV Office Visit ([facility]WSTR ) RYLEY,OCTOBER ([id number]) 1970 F Date Time Provider Department 06/25/23 4:45 PM ASHLEE IYER [facility] During your visit today, we recorded the following information about you: Temperature Pulse Respiration Blood pressure 97.8 degrees 75/minute 20/minute 109/70 Weight 77.1 kg Ashlee Iyer APRN.APPLICATION SOFTWARE DEVELOPER 06/25/2023 5:27 PM Signed Subjective HPI October presents today with compliant that has bug bites on her right arm and left leg. She states she is staying in transitional housing and the sprayed for bed bugs today. She remains itchy. She has no other physical complaints She does have a mental healthy hx in which she states she has not had a MDD episode since Feb, she does not have hx of psychosis, and she does not have elated mood nor able to go without sleep. She is eating and drinking a is taking her Cymbalta, and is compliant. She states she is not using substances She is not Suicidal or homicidal and no self harm is noted No past medical history on file. No past surgical history on file. ALLERGIES Codeine, Latex, Latuda [Lurasidone], Penicillins, Sulfamethoxazole-Trimet hoprim, Vancomycin, and Zoloft [Sertraline] MEDICATIONS escitalopram oxalate (LEXAPRO ORAL) Take by mouth. montelukast (SINGULAIR) 10 mg tablet famotidine (PEPCID) 40 mg tablet topiramate (TOPAMAX) 25 mg tablet FEROSUL 325 mg (65 mg iron) tablet amLODIPine (NORVASC) 5 mg tablet hydrOXYzine pamoate (VISTARIL) 50 mg capsule No family history on file. Social History Tobacco Use Smoking status: Every Day Types: Pipe Passive exposure: Current Smokeless tobacco: Never Review of Systems Skin: Positive for itching. All other systems reviewed and are negative. Objective Physical Exam Vitals and nursing note reviewed. Constitutional: General: She is not in acute distress. Appearance: Normal appearance. She is not ill-appearing or toxic-appearing. HENT: Head: Normocephalic and atraumatic. Right Ear: Tympanic membrane normal. Left Ear: Tympanic membrane normal. Nose: Nose normal. Mouth/Throat: Mouth: Mucous membranes are dry. Eyes: Extraocular Movements: Extraocular movements intact. Pupils: Pupils are equal, round, and reactive to light. Cardiovascular: Rate and Rhythm: Normal rate and regular rhythm. Pulses: Normal pulses. Heart sounds: Normal heart sounds. Pulmonary: Effort: Pulmonary effort is normal. No respiratory distress. Breath sounds: Normal breath sounds. Abdominal: Palpations: Abdomen is soft. Musculoskeletal: Cervical back: Normal range of motion and neck supple. No rigidity or tenderness. Skin: General: Skin is warm and dry. Findings: No rash (no rash noted on exam). Neurological: General: No focal deficit present. Mental Status: She is alert and oriented to person, place, and time. Psychiatric: Mood and Affect: Mood normal. Behavior: Behavior normal. Thought Content: Thought content normal. Judgment: Judgment normal. ASSESSMENT/PLAN: 1. Itching - ICD9: 698.9, ICD10: L29.9 Hydrocortisone cream Long discussion regarding mental health she is to report to ED if any mental health concerns arise Follow up if itching continues Ashlee Iyer APRN.APPLICATION SOFTWARE DEVELOPER Allergies As of Date: 06/25/2023 Noted Allergy Reaction CODEINE 05/12/2023 7 - Swelling 9 - Itching LATEX 05/12/2023 2 - Rash 9 - Itching LATUDA (LURASIDONE) 05/12/2023 12 - Shortness of Breath PENICILLINS 05/12/2023 2 - Rash 12 - Shortness of Breath SULFAMETHOXAZOLE-TRIMET HOPRIM 05/12/2023 2 - Rash VANCOMYCIN 05/12/2023 8 - GI Upset 9 - Itching ZOLOFT (SERTRALINE) 05/12/2023 12 - Shortness of Breath Date Reviewed: 06/25/2023 Reviewed by: Clara Baxter LPN - Fully Assessed Reason for Visit: Bug bites [Other] Cmt: Bites all over her body last week Finger Pain [1583] Cmt: Left ring finger slammed in door swelling Primary Visit Diagnosis:Itching [L29.9] Order(s):hydrocortisone 1 % creamApply to affected area two times a day.Disp: 20 gRfl: 0 Prescriptions as of 06/25/2023 - hydrocortisone 1 % cream Apply to affected area two times a day. - escitalopram oxalate (LEXAPRO ORAL) Take by mouth. - montelukast (SINGULAIR) 10 mg tablet - famotidine (PEPCID) 40 mg tablet - topiramate (TOPAMAX) 25 mg tablet - FEROSUL 325 mg (65 mg iron) tablet - amLODIPine (NORVASC) 5 mg tablet - hydrOXYzine pamoate (VISTARIL) 50 mg capsule Problem List As Of Date: 06/25/2023 (None) Prescriptions ordered this encounter Disp Refills Start End HYDROCORTISONE 1 % TOPICAL CREAM 20 g 0 06/25/2023 Route: TOPICAL Sig: Apply to affected area two times a day. Encounter Status:Closed by ASHLEE IYER on 06/25/23 [facility] 05-12-2023 CN Office Visit ([facility]WSTR ) RYLEY ([id number]) 1970 F Date Time Provider Department 05/12/23 3:30 PM JEN GORE [facility] During your visit today, we recorded the following information about you: Temperature Pulse Respiration Blood pressure 97.4 degrees 74/minute 21/minute 90/74 Weight 71.1 kg Jen Gore APRN.CNP 05/12/2023 4:17 PM Signed Subjective HPI HPI October Ryley is a 52 year old female who presents today for CC of cough, congestion, dx covid 2.5 weeks ago. This started 2.5 weeks ago. Has tried otc medication for relief. Symptoms are worsened by nothing. Risk factors hx of asthma. vapes. .Patient presents with: Cough: LACY, coughing up mucus, chest feels heavy x 2.5 weeks No past medical history on file. No past surgical history on file. ALLERGIES Codeine, Latex, Latuda [Lurasidone], Penicillins, Sulfamethoxazole-Trimet hoprim, Vancomycin, and Zoloft [Sertraline] MEDICATIONS escitalopram oxalate (LEXAPRO ORAL) Take by mouth. montelukast (SINGULAIR) 10 mg tablet famotidine (PEPCID) 40 mg tablet topiramate (TOPAMAX) 25 mg tablet FEROSUL 325 mg (65 mg iron) tablet amLODIPine (NORVASC) 5 mg tablet hydrOXYzine pamoate (VISTARIL) 50 mg capsule No family history on file. Social History Tobacco Use Smoking status: Every Day Types: Pipe Passive exposure: Current Smokeless tobacco: Never Review of Systems Constitutional: Negative for fever. HENT: Positive for congestion. Negative for ear pain, nosebleeds, sinus pain and sore throat. Respiratory: Positive for cough. Negative for shortness of breath and wheezing. Musculoskeletal: Negative for neck pain. Neurological: Positive for headaches. Objective Blood pressure 90/74, pulse 74, temperature 36.3 ?C (97.4 ?F), resp. rate 21, weight 71.1 kg (156 lb 12.8 oz), SpO2 99 %. Physical Exam Constitutional: General: She is not in acute distress. Appearance: She is not toxic-appearing or diaphoretic. HENT: Head: Normocephalic and atraumatic. Cardiovascular: Rate and Rhythm: Normal rate and regular rhythm. Heart sounds: Normal heart sounds, S1 normal and S2 normal. Pulmonary: Effort: Pulmonary effort is normal. Breath sounds: Examination of the right-lower field reveals rales. Rales present. No decreased breath sounds, wheezing or rhonchi. Neurological: Mental Status: She is alert and oriented to person, place, and time. Gait: Gait is intact. ASSESSMENT/PLAN: 1. Acute cough - ICD9: 786.2, ICD10: R05.1 (primary diagnosis) Xray negative Post viral cough suspected Limit smoking advised -If you experience chest pain/shortness of breath go to ER - XR CHEST 2V FRONTAL/LAT - PREDNISONE 10 MG TABLET 2. History of asthma - ICD9: V12.69, ICD10: Z87.09 Start prednisone F/u with pcp if s/s persist - PREDNISONE 10 MG TABLET Jen Gore APRN.APPLICATION SOFTWARE DEVELOPER Allergies As of Date: 05/12/2023 Noted Allergy Reaction CODEINE 05/12/2023 7 - Swelling 9 - Itching LATEX 05/12/2023 2 - Rash 9 - Itching LATUDA (LURASIDONE) 05/12/2023 12 - Shortness of Breath PENICILLINS 05/12/2023 2 - Rash 12 - Shortness of Breath SULFAMETHOXAZOLE-TRIMET HOPRIM 05/12/2023 2 - Rash VANCOMYCIN 05/12/2023 8 - GI Upset 9 - Itching ZOLOFT (SERTRALINE) 05/12/2023 12 - Shortness of Breath Date Reviewed: 05/12/2023 Reviewed by: Jen Gore APRN.APPLICATION SOFTWARE DEVELOPER - Fully Assessed Reason for Visit: Cough [28] Cmt: LACY, coughing up mucus, chest feels heavy x 2.5 weeks Primary Visit Diagnosis:Acute cough [R05.1] Other Visit Diagnosis:History of asthma [Z87.09] Order(s):XR CHEST 2V FRONTAL/LAT [[id number]] Order #: [id number]. #:[id number] predniSONE (DELTASONE) 10 mg tabletTake 4 tabs daily for 3 days, then 2 tabs daily for 3 days, then 1 tab daily for 3 days with food.Disp: 21 tabletRfl: 0 Prescriptions as of 05/12/2023 - escitalopram oxalate (LEXAPRO ORAL) Take by mouth. - montelukast (SINGULAIR) 10 mg tablet - famotidine (PEPCID) 40 mg tablet - topiramate (TOPAMAX) 25 mg tablet - FEROSUL 325 mg (65 mg iron) tablet - amLODIPine (NORVASC) 5 mg tablet - hydrOXYzine pamoate (VISTARIL) 50 mg capsule - predniSONE (DELTASONE) 10 mg tablet Take 4 tabs daily for 3 days, then 2 tabs daily for 3 days, then 1 tab daily for 3 days with food. Problem List As Of Date: 05/12/2023 (None) Prescriptions ordered this encounter Disp Refills Start End PREDNISONE 10 MG TABLET 21 t* 0 05/12/2023 05/21/2023 Sig: Take 4 tabs daily for 3 days, then 2 tabs daily for 3 days, then 1 tab daily for 3 days with food. Encounter Status:Closed by JEN GORE on 05/12/23 Normal [facility] XR CHEST 2V FRONTAL/LATon XR CHEST 2V FRONTAL/LAT * * *Final Report* * * DATE OF EXAM: May 12 2023 4:07PM WOX [id number] - XR CHEST 2V FRONTAL/LAT / PROCEDURE REASON: Acute cough * * * * Physician Interpretation * * * * EXAMINATION: CHEST RADIOGRAPH (2 VIEW FRONTAL and LATERAL) CLINICAL HISTORY: Acute cough MQ: XC2_6 EXAM DATE/TIME: 05/12/2023 4:07 PM COMPARISON: No relevant prior studies available. RESULT: Lines, tubes, and devices: None. Lungs and pleura: No consolidation. No lung mass. No pleural effusion. No pneumothorax. Cardiomediastinal silhouette: Normal cardiomediastinal silhouette. Bones and soft tissues: Degenerative changes are present within the thoracic spine. Surgical clips in the right upper quadrant. IMPRESSION: No acute radiographic abnormality. Residential Program Manager: SHAILESH Transcribe Date/Time: May 12 2023 4:07P Dictated by : LENARD JOSE MD This examination was interpreted and the report reviewed and electronically signed by: LENARD JOSE MD on May 12 2023 4:08PM EST [id number] Normal [facility] XR Chest PA and Lateralon IMPRESSION: No acute radiographic abnormality. Residential Program Manager: PSCB Transcribe Date/Time: May 12 2023 4:07P Dictated by : LENARD JOSE MD This examination was interpreted and the report reviewed and electronically signed by: LENARD JOSE MD on May 12 2023 4:08PM EST DIVISION OF RADIOLOGY * * *Final Report* * * DATE OF EXAM: May 12 2023 4:07PM WOX 5291 - XR CHEST 2V FRONTAL/LAT / PROCEDURE REASON: Acute cough * * * * Physician Interpretation * * * * EXAMINATION: CHEST RADIOGRAPH (2 VIEW FRONTAL & LATERAL) CLINICAL HISTORY: Acute cough MQ: XC2_6 EXAM DATE/TIME: 05/12/2023 4:07 PM COMPARISON: No relevant prior studies available. RESULT: Lines, tubes, and devices: None. Lungs and pleura: No consolidation. No lung mass. No pleural effusion. No pneumothorax. Cardiomediastinal silhouette: Normal cardiomediastinal silhouette. Bones and soft tissues: Degenerative changes are present within the thoracic spine. Surgical clips in the right upper quadrant. DIVISION OF RADIOLOGY Provider, [facility] - 05/12/2023 * * *Final Report* * * DATE OF EXAM: May 12 2023 4:07PM WOX 5291 - XR CHEST 2V FRONTAL/LAT / PROCEDURE REASON: Acute cough * * * * Physician Interpretation * * * * EXAMINATION: CHEST RADIOGRAPH (2 VIEW FRONTAL & LATERAL) CLINICAL HISTORY: Acute cough MQ: XC2_6 EXAM DATE/TIME: 05/12/2023 4:07 PM COMPARISON: No relevant prior studies available. RESULT: Lines, tubes, and devices: None. Lungs and pleura: No consolidation. No lung mass. No pleural effusion. No pneumothorax. Cardiomediastinal silhouette: Normal cardiomediastinal silhouette. Bones and soft tissues: Degenerative changes are present within the thoracic spine. Surgical clips in the right upper quadrant. IMPRESSION IMPRESSION: No acute radiographic abnormality. Residential Program Manager: SHAILESH Transcribe Date/Time: May 12 2023 4:07P Dictated by : LENARD JOSE MD This examination was interpreted and the report reviewed and electronically signed by: LENARD JOSE MD on May 12 2023 4:08PM EST [facility] Radiology Study observation (narrative) [facility] XR Chest PA and LateralOrder ed By: [facility] Provider on 05-12-2023 [facility] HBV surface Ag Ser Qlon 03-19 HBV surface Ag Ql (S) Negative Normal Negative [facility] Comment on above: Order Comment: Speci men Type: BLOOD SPECIMEN Ordering Facility: [facility] Address: [address] [place] [address] Performed By: #### 5 195-3, 90572-8, 03059-7 #### [facility] CLIA [id number] [address] [place] [address] [place] HCV Ab Ser Qlon 04-05-2023 HCV Ab Ql (S) Positive Abnormal Negative [facility] Comment on above: Order Comment: Speci men Type: BLOOD SPECIMEN Ordering Facility: [facility] Address: [address] [place] [address] Performed By: #### 1 6128-1, 74127-3 #### [facility] CLIA [id number] [address] [place] [address] [place] HCV RNA SerPl FRED+probe-aCnc on 04-05-2023 HCV RNA FRED+probe Qn Not detected Normal HCV RNA not detected by PCR. [facility] Comment on above: Order Comment: Speci men Type: BLOOD SPECIMEN Ordering Facility: [facility] Address: [address] [place] [address] Performed By: #### 1 6128-1, 53335-4 #### [facility] CLIA [id number] [address] [place] [address] [place] HIV 1+2 Ab IA Qlon 3 HIV 1 and 2 Ab IA.rapid Nom Normal [facility] Comment on above: Order Comment: Speci men Type: BLOOD SPECIMEN Ordering Facility: [facility] Address: [address] [place] [address] Result Comment: Test not indicated. Performed By: #### 5 195-3, 45637-0, 20143-7 #### [facility] CLIA [id number] [address] [place] [address] [place] HIV 1+2 Ab+HIV1 p24 Ag IA Ql Non-Reactive Normal Nonreactive [facility] Comment on above: Order Comment: Speci men Type: BLOOD SPECIMEN Ordering Facility: [facility] Address: [address] [place] [address] Performed By: #### 5 195-3, 74832-7, 03304-6 #### [facility] CLIA [id number] [address] [place] [address] [place] HIV immunoassay testing algorithm interpretation (S/P/Bld) [Interp] Normal [facility] Comment on above: Order Comment: Speci men Type: BLOOD SPECIMEN Ordering Facility: [facility] Address: [address] [place] [address] Result Comment: No e vidence of HIV-1 or HIV-2 infection. Should recent infection be suspected, repeat testing may be considered 2-3 weeks after this draw. [place] Rev. Code 3701.243(E): This information has been disclosed to you from confidential records protected from disclosure by state law. ???You shall make no further disclosure of this information without the specific, written, and informed release of the individual to whom it pertains or as otherwise permitted by state law. A general authorization for the release of medical or other information is not sufficient for the purpose of the release of HIV test results or diagnoses. Performed By: #### 5 195-3, 26885-6, 09224-7 #### [facility] CLIA [id number] [address] [place] [address] [place] HPV W/GENOTYPE THIN PREPon 0 04-05-2023 HPV 16 Ag Ql (Unsp spec) Negative Normal Negative for HPV DNA high risk type 16 by PCR [facility] Comment on above: Order Comment: Speci men Type: FLUID SPECIMEN Ordering Facility: [facility] Address: [address] [place] [address] Performed By: #### H PVHRT #### [facility] CLIA [id number] [address] [place] [address] [place] HPV 18 Ag Ql (Unsp spec) Negative Normal Negative for HPV DNA high risk type 18 by PCR [facility] Comment on above: Order Comment: Speci men Type: FLUID SPECIMEN Ordering Facility: [facility] Address: [address] [place] [address] Performed By: #### H PVHRT #### [facility] CLIA [id number] [address] [place] [address] [place] HPV 31+33+35+39+45+51+52+ 56+58+59+66+68 DNA FRED+probe Ql (Cvx) Negative for HPV DNA high risk types: 31,33,35,39,45,51,52,56 ,58,59,66,68 by PCR. Normal Negative for HPV DNA high risk types: 31,33,35,39,4 5,51,52,56,58 ,59,66,68 by PCR. [facility] Comment on above: Order Comment: Speci men Type: FLUID SPECIMEN Ordering Facility: [facility] Address: [address] [place] [address] Performed By: #### H PVHRT #### [facility] CLIA [id number] [address] [place] [address] [place] PAP TESTon 04-05-2023 ADEQUACY Normal [facility] Comment on above: Order Comment: Speci men Type: FLUID SPECIMEN Ordering Facility: [facility] Address: [address] [place] [address] Result Comment: Sati sfactory for interpretation No endocervical component Performed By: #### L [id number] #### [facility] CLIA [id number] [address] [place] [address] [place] CASE REPORT Normal [facility] Comment on above: Order Comment: Speci men Type: FLUID SPECIMEN Ordering Facility: [facility] Address: [address] [place] [address] Result Comment: Gyne cologic Cytology Report Case: [id number] Authorizing Provider: Susan Herrera NP Collected: 04/05/2023 02:30 PM Ordering Location: [facility] Received: 04/06/2023 09:57 AM First Screen: Mohorcic, Stefani, CT, ASCP Specimen: Pap Test, ThinPrep, Cervix Performed By: #### L [id number] #### [facility] CLIA [id number] [facility] [place] [address] [place] CLINICAL HISTORY, CYTOLOGY, COKE HANDLING SUPERVISOR Routine Exam Normal [facility] Comment on above: Order Comment: Speci men Type: FLUID SPECIMEN Ordering Facility: [facility] Address: [address] [place] [address] Result Comment: Prev ious pap date: 2019 Performed By: #### L [id number] #### [facility] CLIA [id number] [address] [place] [address] [place] CYTOLOGY PAP OTHER INT Predominance of coccobacilli consistent with shift in vaginal pretty Normal [facility] Comment on above: Order Comment: Speci men Type: FLUID SPECIMEN Ordering Facility: [facility] Address: [address] [place] [address] Performed By: #### L [id number] #### [facility] CLIA [id number] [address] [place] [address] [place] FINAL PERFORMING LAB Normal [facility] Comment on above: Order Comment: Speci men Type: FLUID SPECIMEN Ordering Facility: [facility] Address: [address] [place] [address] Result Comment: Tech nical component, terrazzo worker helper screening performed at [facility], [address] [place] [address] CLIA# [id number] Diagnostic interpretation performed at [facility], [address] [place] [address] [place] [address] CLIA# [id number] [employer] Cable Jointer: Carlos Medeiros M.D. Performed By: #### L [id number] #### [facility] CLIA [id number] [address] [place] [address] [place] HPV REFLEX Yes HPV Normal [facility] Comment on above: Order Comment: Speci men Type: FLUID SPECIMEN Ordering Facility: [facility] Address: [address] [place] [address], [place] [address] Performed By: #### L [id number] #### [facility] CLIA [id number] [address] [address] [place] INTERPRETATION, CYTOLOGY, COKE HANDLING SUPERVISOR Normal [facility] Comment on above: Order Comment: Speci men Type: FLUID SPECIMEN Ordering Facility: [facility] Address: [address] [place] [address] Result Comment: Nega tive for intraepithelial lesion or malignancy. Performed By: #### L [id number] #### [facility] CLIA [id number] [address] [place] [address] [place] LMP 08/2022 Normal [facility] Comment on above: Order Comment: Speci men Type: FLUID SPECIMEN Ordering Facility: [facility] Address: [address] [place] [address] Performed By: #### L [id number] #### [facility] CLIA [id number] [address] [place] [address] [place] PAP DISCLAIMER COMMENT The Pap Smear is a screening test for cervical cancer. False negative results occur with all screening tests, emphasizing the need for rescreening at recommended intervals, and clinical correlation. Normal [facility] Comment on above: Order Comment: Speci men Type: FLUID SPECIMEN Ordering Facility: [facility] Address: [address] [place] [address] Performed By: #### L [id number] #### [facility] CLIA [id number] [address] [place], [place] [address] [place] PAP SCRIPT READER COMMENT This specimen has be en analyzed by the ThinPrep Imaging System, an automated imaging and review system, which assists the laboratory in evaluating cells on ThinPrep Pap tests. Following automated imaging, selected arriola from every slide are reviewed by a terrazzo worker helper. Normal [facility] Comment on above: Order Comment: Speci men Type: FLUID SPECIMEN Ordering Facility: [facility] Address: [address] [place] [address], [place] [address] Performed By: #### L [id number] #### [facility] CLIA [id number] [address] [place] [address] [place] Reagin and Treponema pallidu m IgG and IgM [Interp]on 04-05-2023 T. pallidum IgG+IgM IA Ql (S) Non-Reactive Normal Nonreactive [facility] Comment on above: Order Comment: Speci men Type: BLOOD SPECIMEN Ordering Facility: [facility] Address: [address] [place] [address], [place] [address] Performed By: #### 5 195-3, 55445-4, 14053-7 #### [facility] CLIA [id number] [address] [place] [address] [place] Reagin+T pallidum IgG+IgM Se rPl-Impon 04-05-2023 Reagin and Treponema pallidum IgG and IgM [Interp] Cannot exclude recent Treponemal infection if specimen collected within 7-10 days after appearance of suspect lesions or 2-3 weeks after an exposure. Clinical correlation is required. Normal [facility] Comment on above: Order Comment: Speci men Type: BLOOD SPECIMEN Ordering Facility: [facility] Address: [address] [place] [address], [place] [id number] Performed By: #### 5 195-3, 52905-8, 21293-8 #### [facility] CLIA [id number] [address] [place] [address] [place] Basic Metabolic Profile (BMP )on 03-02-2023 BUN/CRE 9.2 RATIO Low 10-20 [facility] Comment on above: Performed By: #### L 500.2500 ####[facility] [address] [place], [place], [id number] CA,Total 8.1 mg/dL Low 8.5-10.1 [facility] Comment on above: Performed By: #### L 500.2500 ####[facility] [address] [place], [address] Chloride [Moles/Vol] 117 mmol/L High 98-107 [facility] Comment on above: Performed By: #### L 500.2500 ####[facility] [address] [place], [address] CO2 [Moles/Vol] 22.0 mmol/L Normal 21.0-32.0 [facility] Comment on above: Performed By: #### L 500.2500 ####[facility] [address] [place], [address] Creatinine [Mass/Vol] 0.76 mg/dL Normal 0.55-1.02 [facility] Comment on above: Result Comment: The validity of the calculated GFR GFRAA in patients over 70 years has not been determined. Clinical correlation is essential. Performed By: #### L 500.2500 ####[facility] [address] [place], [address] ECRCL 82.90 ml/min Normal [facility] Comment on above: Performed By: #### L 500.2500 ####[facility] [address] [place], [address] EST GFR - AA 104 mL/min Normal >60 [facility] Comment on above: Result Comment: Afri can [place] GFR Calc Performed By: #### L 500.2500 ####[facility] [address] [place], [address] GAP 4 Low 5-15 [facility] Comment on above: Performed By: #### L 500.2500 ####[facility] [address] [place], [address] GFR/1.73 sq M.predicted among non-blacks MDRD (S/P/Bld) [Vol rate/Area] 86 mL/min/{1.73_m2} Normal >60 [facility] Comment on above: Result Comment: Non- GFR Calc Performed By: #### L 500.2500 ####[facility] [address] [place], [address] Glucose [Mass/Vol] 106 mg/dL Normal 74-106 [facility] Comment on above: Result Comment: Fast ing Glucose result from 100 to 125 mg/dL suggests IMPAIRED HOMEOSTASIS per A.D.A. criteria. Performed By: #### L 500.2500 ####[facility] [address] [place], [address] Potassium [Moles/Vol] 4.0 mmol/L Normal 3.5-5.1 [facility] Comment on above: Performed By: #### L 500.2500 ####[facility] [address] [place], [address] Sodium [Moles/Vol] 143 mmol/L Normal 136-145 [facility] Comment on above: Performed By: #### L 500.2500 ####[facility] [address] [place], [address] Urea nitrogen [Mass/Vol] 7 mg/dL Normal 7-18 [facility] Comment on above: Performed By: #### L 500.2500 ####[facility] [address] [place], [address] Basophil percentageOrdered B y: Taylor Alarcon on 03-02-2023 Chloride [Moles/Vol] 117 mmol/L 98-107 [facility] Glucose [Mass/Vol] 106 mg/dL 74-106 [facility] Comment on above: Fasting Glucose resu lt from 100 to 125 mg/dL suggests IMPAIRED HOMEOSTASIS per A.D.A. criteria. Potassium [Moles/Vol] 4.0 mmol/L 3.5-5.1 [facility] Sodium [Moles/Vol] 143 mmol/L 136-145 [facility] Laboratory - Chemistry and C hemistry - challengeOrdered By: Taylor Alarcon on 03-02-2023 CO2 [Moles/Vol] 22.0 mmol/L 21.0-32.0 [facility] Urea nitrogen/Creatinine [Mass ratio] 9.2 mg/mg 10-20 [facility] Miscellaneous Lab Procedureo n 03-02-2023 [facility] LAB TEST Normal [facility] Comment on above: Order Comment: [id number] HEP C CONFIRMATION, SERUM, FROZEN Result Comment: TEST RESULT LIMITS HCV RNA Diagnosis, FRED HCV RNA, Quantitation HCV Not Detected IU/mL No evidence of active HCV infection. Test Information: The quantitative range of this assay is 15 IU/mL to 100 million IU/mL. TESTING PERFORMED AT [facility]. ORIGINAL REPORT ON FILE IN LAB CONTAINS ADDITIONAL TEST SITE INFORMATION. Performed By: #### L 3890.6200, L3890.6100, L801.1541, L3890.6300 #### [facility] [address] [place], [address] No Panel InformationOrdered By: Taylor Alarcon on 03-02-2023 Estimated Creatinine Clearance Calc 82.90 ml/min [facility] Estimated GFR (MDRD) Amer 104 mL/min >60 [facility] Comment on above: GFR Calc Estimated GFR (MDRD) Non-Af Amer 86 mL/min >60 [facility] Comment on above: Non- GFR Calc Serum or plasma calcium alice urement (mass/volume)Ordered By: Taylor Alarcon on 03-02-2023 Calcium [Mass/Vol] 8.1 mg/dL 8.5-10.1 [facility] Serum or plasma creatinine m easurement (mass/volume)Ordered By: Taylor Alarcon on 03-02-2023 Creatinine [Mass/Vol] 0.76 mg/dL 0.55-1.02 [facility] Comment on above: The validity of the calculated GFR & GFRAA in patients over 70 years has not been determined. Clinical correlation is essential. Serum or plasma urea nitroge n measurement (mass/volume)Ordered By: Taylor Alarcon on 03-02-2023 Urea nitrogen [Mass/Vol] 7 mg/dL 02-02 [facility] Thin prep Papanicolaou smear with manual screeningOrdered By: Taylor Alarcon on 03-02-2023 Thin prep Papanicolaou smear with manual screening 11-30 [facility] 12 Lead EKGon 03-01-2023 12 Lead EKG [facility] [address] [place] [address] 12 Lead EKG 03/01/23 0427 MR#: [id number] Acct: [id number] Name: RYLEYOctober Rep #: [id number] : 1970 52 From: Rachelle Lopez MD Attending Dr: Dr. Taylor Alarcon DO Status: DIS I NO Ordering Dr: Kristen Caraballo MD Date: 03/01/23 Location: [facility] Sex: F AA Admitted: 03/01/23 Test Reason : ADMISSION EKG Blood Pressure : / mmHG Vent. Rate : 073 BPM Atrial Rate : 073 BPM P-R Int : 150 ms QRS Dur : 082 ms QT Int : 406 ms P-R-T Axes : 068 004 017 degrees QTc Int : 447 ms Normal sinus rhythm Normal ECG No previous ECGs available Confirmed by RACHELLE LOPEZ ([id number]), marketing editor ARIANA NOEL ([id number]) on 03/09/2023 9:40:37 AM Referred By: AW Confirmed By:RACHELLE LOPEZ 03/09/23 0940 Date Rachelle Lopez MD CC: Dr. Kristen Caraballo MD; Dr. Shira Rider MD; Dr. Taylor Alarcon DO Signed Normal [facility] Absolute lymphocyte countOrd ered By: Fabio Mcbride on 03-01-2023 Lymphocytes Auto (Unsp spec) [#/Vol] 2.09 10*3/uL 0.83-4.51 [facility] Alcohol, Blood (Medical)-Ser umon 03-01-2023 SERUM ETOH < 3.0 Normal [facility] Comment on above: Result Comment: The serum:whole blood ethanol ratio is approximately 1.14 and varies slightly with hematocrit. Medical Alcohol reference interval and critical value in non-tolerant individuals; 50 - 100 Impairment 100 Intoxication 100 - 250 Severe Poisoning 250 - 400 Deep/possible fatal coma Performed By: #### L 700.6800, L505.5000, L500.2500, L100.0100, L501.9100 ####[facility] [address] [place], [address] Basic Metabolic Profile (BMP )on 03-01-2023 BUN/CRE 11.8 RATIO Normal 10-20 [facility] Comment on above: Performed By: #### L 700.6800, L505.5000, L500.2500, L100.0100, L501.9100 ####[facility] [address] [place], [address] CA,Total 9.0 mg/dL Normal 8.5-10.1 [facility] Comment on above: Performed By: #### L 700.6800, L505.5000, L500.2500, L100.0100, L501.9100 ####[facility] [address] [place], [address] Chloride [Moles/Vol] 110 mmol/L High 98-107 [facility] Comment on above: Performed By: #### L 700.6800, L505.5000, L500.2500, L100.0100, L501.9100 ####[facility] [address] [place], [address] CO2 [Moles/Vol] 31.0 mmol/L Normal 21.0-32.0 [facility] Comment on above: Performed By: #### L 700.6800, L505.5000, L500.2500, L100.0100, L501.9100 ####[facility] [address] [place], [place], [address] Creatinine [Mass/Vol] 0.93 mg/dL Normal 0.55-1.02 [facility] Comment on above: Result Comment: The validity of the calculated GFR GFRAA in patients over 70 years has not been determined. Clinical correlation is essential. Performed By: #### L 700.6800, L505.5000, L500.2500, L100.0100, L501.9100 ####[facility] [address] [place], [address] ECRCL 65.12 ml/min Normal [facility] Comment on above: Performed By: #### L 700.6800, L505.5000, L500.2500, L100.0100, L501.9100 ####[facility] [address] [place], [address] EST GFR - AA 82 mL/min Normal >60 [facility] Comment on above: Result Comment: Afri can [place] GFR Calc Performed By: #### L 700.6800, L505.5000, L500.2500, L100.0100, L501.9100 ####[facility] [address] [place], [address] GAP 4 Low 5-15 [facility] Comment on above: Performed By: #### L 700.6800, L505.5000, L500.2500, L100.0100, L501.9100 ####[facility] [address] [place], [place], [address] GFR/1.73 sq M.predicted among non-blacks MDRD (S/P/Bld) [Vol rate/Area] 67 mL/min/{1.73_m2} Normal >60 [facility] Comment on above: Result Comment: Non- GFR Calc Performed By: #### L 700.6800, L505.5000, L500.2500, L100.0100, L501.9100 ####[facility] [address] [place], [address] Glucose [Mass/Vol] 155 mg/dL High 74-106 [facility] Comment on above: Result Comment: Fast ing Glucose result greater than or equal to 126 mg/dL suggests DIABETES MELLITUS per A.D.A. criteria. Performed By: #### L 700.6800, L505.5000, L500.2500, L100.0100, L501.9100 ####[facility] [address] [place], [address] Potassium [Moles/Vol] 3.2 mmol/L Low 3.5-5.1 [facility] Comment on above: Performed By: #### L 700.6800, L505.5000, L500.2500, L100.0100, L501.9100 ####[facility] [address] [place], [address] Sodium [Moles/Vol] 145 mmol/L Normal 136-145 [facility] Comment on above: Performed By: #### L 700.6800, L505.5000, L500.2500, L100.0100, L501.9100 ####[facility] [address] [place], [address] Urea nitrogen [Mass/Vol] 11 mg/dL Normal 7-18 [facility] Comment on above: Performed By: #### L 700.6800, L505.5000, L500.2500, L100.0100, L501.9100 ####[facility] [address] [place], [address] Basophil percentageOrdered B y: Kristen White on 03-01-2023 Bilirubin [Mass/Vol] 0.50 mg/dL 0.20-1.00 [facility] Comment on above: For patients on eltr ombopag therapy, use of Dimension [place] TBIL is not recommended. Protein [Mass/Vol] 6.1 g/dL 6.4-8.2 [facility] Bilirubin [Mass/Vol] 0.70 mg/dL 0.20-1.00 [facility] Comment on above: For patients on eltr ombopag therapy, use of Dimension [place] TBIL is not recommended. Protein [Mass/Vol] 7.2 g/dL 6.4-8.2 [facility] Basophil percentageOrdered B y: Fabio Mcbride on 03-01-2023 Basophils/100 WBC (Bld) 0.9 % 0-1 [facility] Chloride [Moles/Vol] 110 mmol/L 98-107 [facility] Eosinophils/100 WBC (Bld) 4.9 % 0-5 [facility] Glucose [Mass/Vol] 155 mg/dL 74-106 [facility] Comment on above: Fasting Glucose resu lt greater than or equal to 126 mg/dL suggests DIABETES MELLITUS per A.D.A. criteria. Neutrophils (Bld) [#/Vol] 3.5 10*3/uL 2.0-7.7 [facility] Neutrophils/100 WBC (Bld) 54.0 % 47-70 [facility] Potassium [Moles/Vol] 3.2 mmol/L 3.5-5.1 [facility] Sodium [Moles/Vol] 145 mmol/L 136-145 [facility] WBC (Bld) [#/Vol] 6.4 10*3/uL 4.4-11.0 [facility] Beta hCG serum qualOrdered B y: Fabio Mcbride on 03-01-2023 Beta HCG ( test) Ql Negative [facility] Blood erythrocytes count (nu mber/volume)Ordered By: Fabio Mcbride on 03-01-2023 RBC (Bld) [#/Vol] 3.91 10*6/uL 4.2-5.4 [facility] Blood hemoglobin measurement (mass/volume)Ordered By: Fabio Mcbride on 03-01-2023 Hemoglobin (Bld) [Mass/Vol] 11.2 g/dL 12.0-15.0 [facility] Blood lymphocytes/100 leukoc ytesOrdered By: Fabio Mcbride on 03-01-2023 Lymphocytes/100 WBC (Bld) 32.7 % 19-41 [facility] Blood monocytes/100 leukocyt esOrdered By: Fabio Mcbride on 03-01-2023 Monocytes/100 WBC (Bld) 7.2 % 0-10 [facility] Blood platelet mean volumeOr dered By: Fabio Mcbride on 03-01-2023 Platelet mean volume (Bld) [Entitic vol] 9.2 fL 6.2-12.0 [facility] CBC W/Diff, Automatedon 02-16 Absolute Lymph 2.09 X10 3/uL Normal 0.83-4.51 [facility] Comment on above: Performed By: #### L 700.6800, L505.5000, L500.2500, L100.0100, L501.9100 ####[facility] [address] [place], [address] Absolute Neut 3.5 X10 3/uL Normal 2.0-7.7 [facility] Comment on above: Performed By: #### L 700.6800, L505.5000, L500.2500, L100.0100, L501.9100 ####[facility] [address] [place], [address] Basophils/100 WBC (Bld) 0.9 % Normal 0-1 [facility] Comment on above: Performed By: #### L 700.6800, L505.5000, L500.2500, L100.0100, L501.9100 ####[facility] [address] [place], [address] Eosinophils/100 WBC (Bld) 4.9 % Normal 0-5 [facility] Comment on above: Performed By: #### L 700.6800, L505.5000, L500.2500, L100.0100, L501.9100 ####[facility] [address] [place], [address] Erythrocyte distribution width (RBC) [Ratio] 13.4 % Normal 11.6-14.6 [facility] Comment on above: Performed By: #### L 700.6800, L505.5000, L500.2500, L100.0100, L501.9100 ####[facility] [address] [place], [address] Hematocrit (Bld) [Volume fraction] 35.1 % Low 37-47 [facility] Comment on above: Performed By: #### L 700.6800, L505.5000, L500.2500, L100.0100, L501.9100 ####[facility] [address] [place], [address] Hemoglobin (Bld) [Mass/Vol] 11.2 g/dL Low 12.0-15.0 [facility] Comment on above: Performed By: #### L 700.6800, L505.5000, L500.2500, L100.0100, L501.9100 ####[facility] [address] [place], [address] IG% 0.300 Normal 0.0-0.9 [facility] Comment on above: Result Comment: IG% - Immature Granulocytes (promyelocytes, myelocytes and metamyelocytes) > 1% indicates that a LEFT SHIFT is Present. Performed By: #### L 700.6800, L505.5000, L500.2500, L100.0100, L501.9100 ####[facility] [address] [place], [address] Lymphocytes/100 WBC (Bld) 32.7 % Normal 19-41 [facility] Comment on above: Performed By: #### L 700.6800, L505.5000, L500.2500, L100.0100, L501.9100 ####[facility] [address] [place], [address] MCH (RBC) [Entitic mass] 28.6 pg Normal 27.0-32.0 [facility] Comment on above: Performed By: #### L 700.6800, L505.5000, L500.2500, L100.0100, L501.9100 ####[facility] [address] [place], [address] MCHC (RBC) [Mass/Vol] 31.9 g/dL Low 32-36 [facility] Comment on above: Performed By: #### L 700.6800, L505.5000, L500.2500, L100.0100, L501.9100 ####[facility] [address] [place], [address] MCV (RBC) [Entitic vol] 89.8 fL Normal 81-99 [facility] Comment on above: Performed By: #### L 700.6800, L505.5000, L500.2500, L100.0100, L501.9100 ####[facility] [address] [place], [address] Monocytes/100 WBC (Bld) 7.2 % Normal 0-10 [facility] Comment on above: Performed By: #### L 700.6800, L505.5000, L500.2500, L100.0100, L501.9100 ####[facility] [address] [place], [address] Neutrophils/100 WBC (Bld) 54.0 % Normal 47-70 [facility] Comment on above: Performed By: #### L 700.6800, L505.5000, L500.2500, L100.0100, L501.9100 ####[facility] [address] [place], [address] Nucleated RBC (Bld) [#/Vol] 0 10*3/uL Normal 0-5 [facility] Comment on above: Performed By: #### L 700.6800, L505.5000, L500.2500, L100.0100, L501.9100 ####[facility] [address] [place], [address] Platelet mean volume (Bld) [Entitic vol] 9.2 fL Normal 6.2-12.0 [facility] Comment on above: Performed By: #### L 700.6800, L505.5000, L500.2500, L100.0100, L501.9100 ####[facility] [address] [place], [address] Platelets (Bld) [#/Vol] 321 10*3/uL Normal 150-450 [facility] Comment on above: Performed By: #### L 700.6800, L505.5000, L500.2500, L100.0100, L501.9100 ####[facility] [address] [place], [address] RBC (Bld) [#/Vol] 3.91 10*6/uL Low 4.2-5.4 [facility] Comment on above: Performed By: #### L 700.6800, L505.5000, L500.2500, L100.0100, L501.9100 ####[facility] [address] [place], [address] RDW SD 43.7 fl Normal 35.1-43.9 [facility] Comment on above: Performed By: #### L 700.6800, L505.5000, L500.2500, L100.0100, L501.9100 ####[facility] [address] [place], [address] WBC (Bld) [#/Vol] 6.4 10*3/uL Normal 4.4-11.0 [facility] Comment on above: Performed By: #### L 700.6800, L505.5000, L500.2500, L100.0100, L501.9100 ####[facility] [address] [place], [address] Comprehensive Metabolic Prof iafransisco 03-01-2023 Albumin [Mass/Vol] 2.9 g/dL Low 3.2-5.0 [facility] Comment on above: Performed By: #### L 501.9985, L500.4050 ####[facility] [address] [place], [address] Albumin/Globulin [Mass ratio] 0.9 {ratio} Normal 0.9-2.4 [facility] Comment on above: Performed By: #### L 501.9985, L500.4050 ####[facility] [address] [place], [address] ALK P 70 U/L Normal 45-117 [facility] Comment on above: Performed By: #### L 501.9985, L500.4050 ####[facility] [address] [place], [address] ALT [Catalytic activity/Vol] 20 U/L Normal 13-56 [facility] Comment on above: Performed By: #### L 501.9985, L500.4050 ####[facility] [address] [place], [address] AST [Catalytic activity/Vol] 16 U/L Normal 15-37 [facility] Comment on above: Performed By: #### L 501.9985, L500.4050 ####[facility] [address] [place], [address] Bilirubin [Mass/Vol] 0.50 mg/dL Normal 0.20-1.00 [facility] Comment on above: Result Comment: For patients on eltrombopag therapy, use of Dimension [place] TBIL is not recommended. Performed By: #### L 501.9985, L500.4050 ####[facility] [address] [place], [address] BUN/CRE 13.5 RATIO Normal 10-20 [facility] Comment on above: Performed By: #### L 501.9985, L500.4050 ####[facility] [address] [place], [address] CA,Total 8.1 mg/dL Low 8.5-10.1 [facility] Comment on above: Performed By: #### L 501.9985, L500.4050 ####[facility] [address] [place], [address] Chloride [Moles/Vol] 113 mmol/L High 98-107 [facility] Comment on above: Performed By: #### L 501.9985, L500.4050 ####[facility] [address] [place], [address] CO2 [Moles/Vol] 27.0 mmol/L Normal 21.0-32.0 [facility] Comment on above: Performed By: #### L 501.9985, L500.4050 ####[facility] [address] [place], [address] Creatinine [Mass/Vol] 0.74 mg/dL Normal 0.55-1.02 [facility] Comment on above: Result Comment: The validity of the calculated GFR GFRAA in patients over 70 years has not been determined. Clinical correlation is essential. Performed By: #### L 501.9985, L500.4050 ####[facility] [address] [place], [address] ECRCL 85.14 ml/min Normal [facility] Comment on above: Performed By: #### L 501.9985, L500.4050 ####[facility] [address] [place], [address] EST GFR - AA 107 mL/min Normal >60 [facility] Comment on above: Result Comment: Afri can [place] GFR Calc Performed By: #### L 501.9985, L500.4050 ####[facility] [address] [place], [address] GAP 7 Normal 5-15 [facility] Comment on above: Performed By: #### L 501.9985, L500.4050 ####[facility] [address] [place], [address] GFR/1.73 sq M.predicted among non-blacks MDRD (S/P/Bld) [Vol rate/Area] 88 mL/min/{1.73_m2} Normal >60 [facility] Comment on above: Result Comment: Non- GFR Calc Performed By: #### L 501.9985, L500.4050 ####[facility] [address] [place], [address] Globulin (S) [Mass/Vol] 3.2 g/dL Normal 2.2-4.2 [facility] Comment on above: Performed By: #### L 501.9985, L500.4050 ####[facility] [address] [place], [address] Glucose [Mass/Vol] 114 mg/dL High 74-106 [facility] Comment on above: Result Comment: Fast ing Glucose result from 100 to 125 mg/dL suggests IMPAIRED HOMEOSTASIS per A.D.A. criteria. Performed By: #### L 501.9985, L500.4050 ####[facility] [address] [place], [address] Potassium [Moles/Vol] 3.0 mmol/L Low 3.5-5.1 [facility] Comment on above: Performed By: #### L 501.9985, L500.4050 ####[facility] [address] [place], [address] Sodium [Moles/Vol] 147 mmol/L High 136-145 [facility] Comment on above: Performed By: #### L 501.9985, L500.4050 ####[facility] [address] [place], [address] T PROT 6.1 g/dL Low 6.4-8.2 [facility] Comment on above: Performed By: #### L 501.9985, L500.4050 ####[facility] [address] [place], [address] Urea nitrogen [Mass/Vol] 10 mg/dL Normal 7-18 [facility] Comment on above: Performed By: #### L 501.9985, L500.4050 ####[facility] [address] [place], [address] Determination of erythrocyte mean corpuscular volume (MCV)Ordered By: Fabio Mcbirde on 03-01-2023 MCV (RBC) [Entitic vol] 89.8 fL 81-99 [facility] Direct bilirubinOrdered By: Kristen Caraballo on 03-01-2023 Bilirubin.direct [Mass/Vol] 0.18 mg/dL 0.00-0.30 [facility] Emergency Department Summary on 03-01-2023 Emergency Department Summary [facility] Medical Records Department [address] [place] [address] Emergency Department Summary 03/01/23 MR#: [id number] Acct: [id number] Name: KAMLA HEDRICK Rep #: [id number] : 1970 52 From: Fabio Lieberman PCP: Dr. Shira Rider MD Status:ADM IN Location: [place] [address] HPI History of Present Illness Chief Complaint: Substance Abuse Informant: patient Narrative Narrative: Presents here requesting detox. Reports previous heroin user went to [facility] in 2018. Patient relapsed this past September using Percocet 30s and cocaine. She reports she did take half a tab Percocet she requested Percocet and snorted with cocaine. She does this on a daily basis sometimes multiple times a day. Last use 10 PM. She was incarcerated for 15 days in January had withdrawal symptoms then when she got she started using again. Denies any current nausea or vomiting. History of bipolar anxiety depression states she stopped taking her medications when she started using the drugs. She denies any suicidal or homicidal ideations. Denies alcohol use. She was reporting when she was in nursing home had polysubstance findings from her toxicology screen including methadone MDMA and benzos which she states she did not use those. She had meth stating she tried it before nursing home did not like it. Medically discussion she states she has concerns for leg swelling. No trouble urinating. She states she was attacked by pit bull in January before going to nursing home. Denies any fevers. Prior similar symptoms: Yes PFSH [facility] Medical History (Updated 03/01/23 @ 01:[address] Kristen Caraballo MD) Allergic rhinitis Anxiety and depression Bipolar disorder Chronic anemia GERD (gastroesophageal reflux disease) Iron deficiency anemia IV drug abuse Overweight Polysubstance abuse Home Medications citalopram 40 mg tablet 60 mg PO DAILY 03/05/19 [History Last Taken 03/11/19] hydroxyzine pamoate 50 mg capsule 50 mg PO DAILY 03/05/19 [History Last Taken 03/11/19] ondansetron 4 mg disintegrating tablet 4 mg PO Q8H PRN PRN Nausea #10 tabs 03/05/19 [Rx Last Taken 03/11/19] quetiapine 100 mg tablet 100 mg PO QHS 03/05/19 [History Last Taken 03/10/19] ranitidine HCl 150 mg tablet 150 mg PO DAILY 03/05/19 [History Last Taken 03/11/19] amlodipine 5 mg tablet 5 mg PO DAILY 03/11/19 [History Last Taken 03/11/19] ferrous sulfate 325 mg (65 mg iron) tablet 325 mg PO BID 03/11/19 [History Last Taken 03/11/19] topiramate 25 mg tablet 50 mg PO BID PRN PRN Headache 03/11/19 [History Last Taken Unknown] Allergy/AdvReac Type Severity Reaction Status Date / Time codeine Allergy Itching Verified 03/11/19 16:29 doxycycline Allergy Itching Verified 03/11/19 16:29 latex Allergy Rash Verified 03/11/19 16:29 Penicillins [cillins] Allergy Swelling Verified 06/28/22 14:55 sulfamethoxazole Allergy Rash Verified 03/11/19 16:29 [From Bactrim] trimethoprim [From Bactrim] Allergy Rash Verified 03/11/19 16:29 naproxen AdvReac Upset Verified 03/11/19 16:29 Stomach NSAIDS (Non-Steroidal AdvReac Upset Verified 03/11/19 16:29 Anti-Inflamma Stomach Social History Smoking Status: Never smoker ROS ROS ED Constitutional Constitutional ED: Denies chills, fever(s) or sweats Eyes Eyes: Denies change in vision ENT ENT ED: Denies dysphagia or sore throat Cardiovascular Cardiovascular: Reports leg edema; Denies chest pain, palpitations or racing heartbeat Respiratory/Chest Respiratory/Chest: Denies cough, dyspnea or dyspnea on exertion Gastrointestinal Gastrointestinal: Denies abdominal pain, diarrhea, nausea or vomiting Genitourinary Genitourinary ED: Denies dysuria, hematuria or urinary frequency Musculoskeletal Musculoskeletal: Denies back pain, extremity pain or neck pain Integumentary Denies rash or wounds Neurologic Neurologic: Denies headache(s), paresthesias or weakness Psychiatric Psychiatric: Denies suicidal ideation or suicidal thoughts EXAM Physical Exam Const Vital Signs: 03/01/23 00:55 Temperature 98 F Temperature Source Temporal Pulse Rate 77 Respiratory Rate 18 Blood Pressure 129/89 H Blood Pressure Mean 102 Pulse Ox 97 Oxygen Delivery Method Room Air Positive well nourished and well developed Constitutional Narrative: Nontoxic, General Appearance ED: well developed and NAD HEENT Reports moist mucous membranes normocephalic and atraumatic Eyes PERRL, EOMs intact bilaterally and conjunctivae normal General Eye ED: Yes normal appearance of both eyes Neck no lymphadenopathy and supple General: Negative for tenderness Chest Wall Chest: Negative for tenderness Resp normal respiratory effort and normal air movement Effort and Inspection: symmetric chest movement; Negative for respiratory (more content not included)... Normal [facility] H AND P Exam - Hospitaliston 03-01-2023 H&P Exam - Hospitalist [facility] Medical Records Department [address] [place] [address] H P Exam - Hospitalist 03/01/23 0145 MR#: [id number] Acct: [id number] Name: RYLEYOctober Rep #: [id number] : 1970 52 From: Kristen Caraballo MD PCP: Dr. Shira Rider MD Status:ADM IN Location: [facility] [id number] HPI - General General Date of Admission: 03/01/23 Date of Service: 03/01/23 Chief Complaint: Acute Opiate withdrawal HPI Narrative The patient is a 52 y/o F w/ PMHx: Allergic rhinitis, HTN, Anxiety and Depression/Bipolar disorder, GERD, Overweight, Polysubstance abuse (Percocet/Opiates/Cocai ne, Prior IVDA w/ heroin) who presents to the [facility] ED on 03/01/23 with noted acute opiate withdrawal onset starting just prior to presentation following last dose at approximately 10 PM on day prior to presentation with primarily at this point mild agitation and restlessness but no marked abdominal pain/cramping, body aches, rhinorrhea presenting for detoxification. Patient interested in attaining clean status. Patient is a previous heroin user and was admitted for detox in 2017 unfortunately relapsing this September utilizing both Percocets and cocaine multiple times a day until she was incarcerated for approximately half a month in January with withdrawal symptoms at that time however unfortunately she started using again. Work-up in the ED included T98, heart rate 77, BP 129/89, respiratory rate 18, 97% room air, CBC with WBC 6.4, hemoglobin 11.2, MCV 89.8, platelet 321 without marked shift, BMP with potassium 3.2, glucose 155 otherwise not marked appearing, serum negative, UDS positive for MDMA and cocaine, ethyl alcohol level <3. [facility] Medical History (Updated 03/01/23 @ 01:[address] Kristen Caraballo MD) Allergic rhinitis Anxiety and depression Bipolar disorder Chronic anemia GERD (gastroesophageal reflux disease) Iron deficiency anemia IV drug abuse Overweight Polysubstance abuse Home Medications citalopram 40 mg tablet 60 mg PO DAILY 03/05/19 [History Last Taken 03/11/19] hydroxyzine pamoate 50 mg capsule 50 mg PO DAILY 03/05/19 [History Last Taken 03/11/19] ondansetron 4 mg disintegrating tablet 4 mg PO Q8H PRN PRN Nausea #10 tabs 03/05/19 [Rx Last Taken 03/11/19] quetiapine 100 mg tablet 100 mg PO QHS 03/05/19 [History Last Taken 03/10/19] ranitidine HCl 150 mg tablet 150 mg PO DAILY 03/05/19 [History Last Taken 03/11/19] amlodipine 5 mg tablet 5 mg PO DAILY 03/11/19 [History Last Taken 03/11/19] ferrous sulfate 325 mg (65 mg iron) tablet 325 mg PO BID 03/11/19 [History Last Taken 03/11/19] topiramate 25 mg tablet 50 mg PO BID PRN PRN Headache 03/11/19 [History Last Taken Unknown] Allergy/AdvReac Type Severity Reaction Status Date / Time codeine Allergy Itching Verified 03/11/19 16:29 doxycycline Allergy Itching Verified 03/11/19 16:29 latex Allergy Rash Verified 03/11/19 16:29 Penicillins [cillins] Allergy Swelling Verified 06/28/22 14:55 sulfamethoxazole Allergy Rash Verified 03/11/19 16:29 [From Bactrim] trimethoprim [From Bactrim] Allergy Rash Verified 03/11/19 16:29 naproxen AdvReac Upset Verified 03/11/19 16:29 Stomach NSAIDS (Non-Steroidal AdvReac Upset Verified 03/11/19 16:29 Anti-Inflamma Stomach Family History (Updated 03/01/23 @ 02:[address] Kristen Caraballo MD) Mother Diabetes Hypertension Rheumatoid arthritis Father Diabetes Cancer Hypertension Surgical History (Updated 03/01/23 @ 02:[address] Kristen Caraballo MD) History of tubal ligation Hx of cholecystectomy Social History (Updated 03/01/23 @ 02:[address] Kristen Caraballo MD) household members: other details: Her 18 year old daughter lives with her. Smoking Status: Never smoker alcohol intake: never substance use type: crack/cocaine, heroin, opiates and IV drugs ROS ROS Narrative Admission Review of Systems: CONSTITUTIONAL: No weight loss, fever, chills, + weakness or fatigue. HEENT: Eyes: No visual loss, blurred vision, double vision or yellow sclerae. Ears, Nose, Throat: No hearing loss, sneezing, congestion, runny nose or sore throat. SKIN: + Hx canine bit prior to recent incarceration. CARDIOVASCULAR: No chest pain, chest pressure or chest discomfort, palpitations, edema, orthopnea, syncopal events. RESPIRATORY: No shortness of breath, cough or sputum, wheezing, hemoptysis. GASTROINTESTINAL:+ anorexia. No nausea, vomiting or diarrhea, abdominal pain, melena, BRBPR. GENITOURINARY: No dysuria, frequency, urgency or retention. NEUROLOGICAL: + Restlessness. No headache, dizziness, syncope, paralysis, ataxia, numbness or tingling in the extremities, focal weakness, change in bowel or bladder control, seizure. MUSCULOSKELETAL: + muscle, back pain, joint pain or stiffness. HEMATOLOGIC: No anemia, bleeding or bruising. LYMPHATICS: No enlarged nodes. No history of splenectomy. (more content not included)... Normal [facility] HIV - WCHon 03-01-2023 HIV Non-Reactive Normal Nonreactive [facility] Comment on above: Performed By: #### L 3890.6005, L509.8000, L501.5200, L500.3400 ####[facility] [address] [place], [address] HIV 1 and HIV-2 antibody ass ay with HIV-1 p24 antigen detectionOrdered By: Kristen Caraballo on 03-01-2023 HIV 1+2 Ab+HIV1 p24 Ag IA Ql Non-Reactive Nonreactive [facility] Hematocrit Auto (Bld) [Volum e fraction]Ordered By: Fabio Mcbride on 03-01-2023 Hematocrit (Bld) [Volume fraction] 35.1 % 37-47 [facility] Hemoglobin A1con 03-01-2023 HbA1c (Bld) [Mass fraction] 5.3 % Normal 3.8-5.6 [facility] Comment on above: Result Comment: Norm al < 5.7 % Prediabetic 5.7 - 6.4 % Diabetic >or= 6.5 % Please note range changes. Performed By: #### L 501.9985, L500.4050 ####[facility] [address] [place], [place], [id number] Hepatitis B Surface Antibody on 03-01-2023 HEP B Surf Ab Reactive Normal [facility] Comment on above: Order Comment: Reaso n for Exam: Hepatitis Screen RESULTS CALLED TO JOLENE KENNEDY RN (U) 03/01/23 0439 Mandeep Rabago. REPORT READ BACK BY SAME. Result Comment: Non Reactive: Inconsistent with immunity less than <10 mIU/mL Reactive: Consistent with immunity greater than or equal to 10 mIU/mL Performed By: #### L 3890.6200, L3890.6100, L801.1541, L3890.6300 #### [facility] [address] [place], [address] Hepatitis B Surface Antigeno n 03-01-2023 HEP B Surf Ag Non-Reactive Normal Nonreactive [facility] Comment on above: Order Comment: Reaso n for Exam: Hepatitis Screen RESULTS CALLED TO JOLENE KENNEDY RN ([facility]) 03/01/23 0439 Mandeep Rabago. REPORT READ BACK BY SAME. Result Comment: AMENDED REPORT 03/01/23614 HEPB Surface Ag previously reported as: Nonreactive Performed By: #### L 3890.6200, L3890.6100, L801.1541, L3890.6300 #### [facility] [address] [place], [address] Hepatitis C Antibodyon 03-01 Hepatitis C Ab Reactive Normal Nonreactive [facility] Comment on above: Order Comment: Reaso n for Exam: Hepatitis Screen RESULTS CALLED TO JOLENE KENNEDY RN ([facility]) 03/01/23 0439 Mandeep Rabago. REPORT READ BACK BY SAME. Result Comment: Non Reactive: < 0.8 Equivocal: >/= 0.8 to < 1.0 Reactive: >/= 1.0 The CDC recommends that a reactive/equivocal HCV antibody result be followed up by the HCV Nucleic Acid Amplification test (017779) Performed By: #### L 3890.6200, L3890.6100, L801.1541, L3890.6300 #### [facility] [address] [place], [address] Hepatitis C,RNA PCR [facility] [employer] 03-01-2023 HCV QT RNA PCR Normal [facility] Comment on above: Result Comment: QNS PER [facility] Performed By: #### L 7000.7000 ####[facility] [address] [place], [address] L509.8000on 03-01-2023 Syphilis Abs Non-Reactive Normal [facility] Comment on above: Performed By: #### L 3890.6005, L509.8000, L501.5200, L500.3400 #### [facility] [address] [place], [address] Laboratory - Chemistry and C hemistry - challengeOrdered By: Kristen Caraballo on 03-01-2023 ALP [Catalytic activity/Vol] 70 U/L [facility] ALT [Catalytic activity/Vol] 20 U/L [facility] Globulin (S) [Mass/Vol] 3.2 g/dL 2.2-4.2 [facility] ALP [Catalytic activity/Vol] 79 U/L [facility] ALT [Catalytic activity/Vol] 23 U/L [facility] Globulin (S) [Mass/Vol] 3.7 g/dL 2.2-4.2 [facility] Magnesium [Mass/Vol] 1.7 mg/dL 1.6-2.6 [facility] Laboratory - Chemistry and C hemistry - challengeOrdered By: Fabio Mcbride on 03-01-2023 CO2 [Moles/Vol] 31.0 mmol/L 21.0-32.0 [facility] Urea nitrogen/Creatinine [Mass ratio] 11.8 mg/mg 05-07 [facility] - Drug toxicology Ordered By: Fabio Mcbride on 03-01-2023 Amphetamines Ql (U) Negative <1000 ng/mL [facility] Benzodiazepines Ql (U) Negative < 200 ng/mL [facility] Cannabinoids Screen Ql (U) Negative < 50 ng/mL [facility] Cocaine Ql (U) Positive < 300 ng/mL [facility] Opiates Ql (U) Negative < 300 ng/mL [facility] - Hematology and Cell countsOrdered By: Fabio Mcbride on 03-01-2023 Erythrocyte distribution width (RBC) [Entitic vol] 43.7 fL 35.1-43.9 [facility] Erythrocyte distribution width (RBC) [Ratio] 13.4 % 11.6-14.6 [facility] Immature granulocytes/100 WBC (Bld) 0.300 % 0.0-0.9 [facility] Comment on above: IG% - Immature Granu locytes (promyelocytes, myelocytes and metamyelocytes) > 1% indicates that a LEFT SHIFT is Present. MCH (RBC) [Entitic mass] 28.6 pg 27.0-32.0 [facility] Nucleated RBC/100 WBC (Bld) [Ratio] 0 % 0-5 [facility] Liver Profileon 03-01-2023 Albumin [Mass/Vol] 3.5 g/dL Normal 3.2-5.0 [facility] Comment on above: Order Comment: Comme nts: may add to ED labs Performed By: #### L 3890.6005, L509.8000, L501.5200, L500.3400 #### [facility] [address] [place], [address] ALK P 79 U/L Normal 45-117 [facility] Comment on above: Order Comment: Comme nts: may add to ED labs Performed By: #### L 3890.6005, L509.8000, L501.5200, L500.3400 #### [facility] [address] [place], [address] ALT [Catalytic activity/Vol] 23 U/L Normal 13-56 [facility] Comment on above: Order Comment: Comme nts: may add to ED labs Performed By: #### L 3890.6005, L509.8000, L501.5200, L500.3400 #### [facility] [address] [place], [address] AST [Catalytic activity/Vol] 17 U/L Normal 15-37 [facility] Comment on above: Order Comment: Commjohn nts: may add to ED labs Performed By: #### L 3890.6005, L509.8000, L501.5200, L500.3400 #### [facility] [address] [place], [address] Bilirubin [Mass/Vol] 0.70 mg/dL Normal 0.20-1.00 [facility] Comment on above: Order Comment: Comme nts: may add to ED labs Result Comment: For patients on eltrombopag therapy, use of Dimension [place] TBIL is not recommended. Performed By: #### L 3890.6005, L509.8000, L501.5200, L500.3400 #### [facility] [address] [place], [address] Bilirubin.direct [Mass/Vol] 0.18 mg/dL Normal 0.00-0.30 [facility] Comment on above: Order Comment: Comme nts: may add to ED labs Performed By: #### L 3890.6005, L509.8000, L501.5200, L500.3400 #### [facility] [address] [place], [address] Globulin (S) [Mass/Vol] 3.7 g/dL Normal 2.2-4.2 [facility] Comment on above: Order Comment: Comme nts: may add to ED labs Performed By: #### L 3890.6005, L509.8000, L501.5200, L500.3400 #### [facility] [address] [place], [address] T PROT 7.2 g/dL Normal 6.4-8.2 [facility] Comment on above: Order Comment: Comme nts: may add to ED labs Performed By: #### L 3890.6005, L509.8000, L501.5200, L500.3400 #### [facility] [address] [place], [address] MCHC Auto (RBC) [Mass/Vol]Or dered By: Fabio Mcbride on 03-01-2023 MCHC (RBC) [Mass/Vol] 31.9 g/dL 32-36 [facility] Magnesiumon 03-01-2023 Magnesium [Mass/Vol] 1.7 mg/dL Normal 1.6-2.6 [facility] Comment on above: Order Comment: Comme nts: may add to ED labs Performed By: #### L 3890.6005, L509.8000, L501.5200, L500.3400 #### [facility] [address] [place], [address] No Panel InformationOrdered By: Fabio Mcbride on 03-01-2023 Estimated Creatinine Clearance Calc 65.12 ml/min [facility] Estimated GFR (MDRD) Amer 82 mL/min >60 [facility] Comment on above: GFR Calc Estimated GFR (MDRD) Non-Af Amer 67 mL/min >60 [facility] Comment on above: Non- GFR Calc Ethyl Alcohol Level < 3.0 mg/dL [facility] Comment on above: The serum:whole bloo d ethanol ratio is approximately 1.14and varies slightly with hematocrit. Medical Alcohol reference interval and critical value innon-tolerant individuals; 50 - 100 Impairment 100 Intoxication 100 - 250 Severe Poisoning 250 - 400 Deep/possible fatal coma MDMA (Ecstasy) Screen Positive < 500 ng/mL [facility] Urine Barbiturates Screen Negative < 200 ng/mL [facility] Urine Drug Screen Comment [facility] Comment on above: CONFIRMATORY TESTING FOR ALL POSITIVE URINE DRUG SCREENRESULTS WILL ONLY BE SENT OUT UPON PHYSICIAN ORDER. VISTA Urine Drug Screen methods provide only preliminaryanalytical test results. A more specific alternate chemicalmethod must be used in order to obtain a confirmedanalytical result. Gas chromatography/mass spectrometery(GC/MS) is the preferred confirmatory method. Clinicalconsideration and professional judgement should be appliedto any drug of abuse test result, particularly whenpreliminary positive results are used. URINE TCA TESTING MUST BE ORDERED SEPARATELY. USE TESTMNEMONIC: [facility] Urine Methadone Screen Negative < 300 ng/mL [facility] No Panel InformationOrdered By: Kristen Caraballo on 03-01-2023 Hepatitis B Surface Antigen Non-Reactive Nonreactive [facility] Comment on above: Previous reported re sult: Nonreactive Edited by: PAO on 03/01/23:0615 AMENDED REPORT 03/01/23614 HEPB Surface Ag previously reported as: Nonreactive Hepatitis C Antibody Reactive Nonreactive [facility] Comment on above: Previous reported re sult: Preliminary Reactive Edited by: JOVANNA on 03/01/23:0616 Non Reactive: < 0.8 Equivocal: >/= 0.8 to < 1.0 Reactive: >/= 1.0The [facility] recommends that a reactive/equivocal HCV antibody result be followed up by the HCV Nucleic Acid Amplificationtest ([id number]) Miscellaneous Test See comment [facility] Comment on above: TEST RESULT LIMITSHC V RNA Diagnosis, FRED HCV RNA, Quantitation HCV Not Detected IU/mL No evidence of active HCV infection.Test Information: The quantitative range of this assay is 15 IU/mL to 100 million IU/mL. TESTING PERFORMED AT [facility]. ORIGINAL REPORT ON FILE IN LAB CONTAINS ADDITIONAL TEST SITE INFORMATION. Platelets bldOrdered By: Seymour Mcbride on 03-01-2023 Platelets (Bld) [#/Vol] 321 10*3/uL 150-450 [facility] ,Serum,hCG Quali.on 03-01-2023 HCG, SERUM QUAL Negative Normal [facility] Comment on above: Performed By: #### L 700.6800, L505.5000, L500.2500, L100.0100, L501.9100 ####[facility] [address] [place], [address] Serum Treponema species anti body detectionOrdered By: Kristen Caraballo on 03-01-2023 Treponema sp Ab Ql (S) Non-Reactive [facility] Serum hepatitis B virus surf adeline antibody IgG detectionOrdered By: Kristen Caraballo on 03-01-2023 HBV surface IgG Ql (S) Reactive [facility] Comment on above: Non Reactive: Incons istent with immunity less than <10 mIU/mL Reactive: Consistent with immunity greater than or equal to 10 mIU/mL Serum or plasma albumin alice urement (mass/volume)Ordered By: Kristen Caraballo on 03-01-2023 Albumin [Mass/Vol] 2.9 g/dL 3.2-5.0 [facility] Albumin [Mass/Vol] 3.5 g/dL 3.2-5.0 [facility] Serum or plasma albumin/glob ulin mass ratioOrdered By: Kristen Caraballo on 03-01-2023 Albumin/Globulin [Mass ratio] 0.9 {ratio} 0.9-2.4 [facility] Serum or plasma calcium alice urement (mass/volume)Ordered By: Fabio Mcbride on 03-01-2023 Calcium [Mass/Vol] 9.0 mg/dL 8.5-10.1 [facility] Serum or plasma creatinine m easurement (mass/volume)Ordered By: Fabio Mcbride on 03-01-2023 Creatinine [Mass/Vol] 0.93 mg/dL 0.55-1.02 [facility] Comment on above: The validity of the calculated GFR & GFRAA in patients over 70 years has not been determined. Clinical correlation is essential. Serum or plasma urea nitroge n measurement (mass/volume)Ordered By: Fabio Mcbride on 03-01-2023 Urea nitrogen [Mass/Vol] 11 mg/dL 7-18 [facility] Thin prep Papanicolaou smear with manual screeningOrdered By: Kristen Caraballo on 03-01-2023 Thin prep Papanicolaou smear with manual screening 16 U/L 15- [facility] Thin prep Papanicolaou smear with manual screening 17 U/L 15 [facility] Thin prep Papanicolaou smear with manual screeningOrdered By: Fabio Mcbride on 03-01-2023 Thin prep Papanicolaou smear with manual screening 4 5-15 [facility] Urine Drug Screen (VISTA)on 03-01-2023 BARBITIURATES Negative Normal < 200 ng/mL [facility] Comment on above: Performed By: #### L 700.6800, L505.5000, L500.2500, L100.0100, L501.9100 ####[facility] [address] [facility] [address] BENZODIAZIPINE Negative Normal < 200 ng/mL [facility] Comment on above: Performed By: #### L 700.6800, L505.5000, L500.2500, L100.0100, L501.9100 ####[facility] [address] [place] [address] COCAINE Positive Abnormal < 300 ng/mL [facility] Comment on above: Performed By: #### L 700.6800, L505.5000, L500.2500, L100.0100, L501.9100 ####[facility] [address] [place] [address] ECSTACY Positive Abnormal < 500 ng/mL [facility] Comment on above: Performed By: #### L 700.6800, L505.5000, L500.2500, L100.0100, L501.9100 ####[facility] [address] [place] [address] METHADONE Negative Normal < 300 ng/mL [facility] Comment on above: Performed By: #### L 700.6800, L505.5000, L500.2500, L100.0100, L501.9100 ####[facility] [address] [place] [address] OPIATES Negative Normal < 300 ng/mL [facility] Comment on above: Performed By: #### L 700.6800, L505.5000, L500.2500, L100.0100, L501.9100 ####[facility] [address] [place] [address] PCP Negative Normal < 25 ng/mL [facility] Comment on above: Performed By: #### L 700.6800, L505.5000, L500.2500, L100.0100, L501.9100 ####[facility] [address] [place] [address] THC Negative Normal < 50 ng/mL [facility] Comment on above: Performed By: #### L 700.6800, L505.5000, L500.2500, L100.0100, L501.9100 ####[facility] [address] [place], [address] AMPHETAMINES Negative Normal <1000 ng/mL [facility] Comment on above: Performed By: #### L 700.6800, L505.5000, L500.2500, L100.0100, L501.9100 ####[facility] [address] [place], [address] VISTA UDS PH 4 Normal [facility] Comment on above: Performed By: #### L 700.6800, L505.5000, L500.2500, L100.0100, L501.9100 ####[facility] [address] [place], [address] Urine phencyclidine (PCP) de tectionOrdered By: Fabio Mcbride on 03-01-2023 Phencyclidine Ql (U) Negative < 25 ng/mL [facility] Whole blood hemoglobin A1c/t otal hemoglobin ratio (mass fraction)Ordered By: Kristen Caraballo on 03-01-2023 HbA1c (Bld) [Mass fraction] 5.3 % 3.8-5.6 [facility] Comment on above: Normal < 5.7 % Predi abetic 5.7 - 6.4 % Diabetic >or= 6.5 % Please note range changes. ED NOTEon 12-23-2022 ED NOTE HNO ID: [id number] Author: Stefani Shields RN Service: Emergency Medicine Author Type: Registered Nurse Type: ED Notes Filed: 12/22/2022 10:25 PM Note Text: Pt walked out of department, made comment to Mingo TRACY, I can't wait for those discharge papers pt's gate steady. Dr. Hernandez informed. Normal [facility] ED PROV NOTEon 12-23-2022 ED PROV NOTE HNO ID: [id number] Author: Meghna Hernandez MD Service: Emergency Medicine Author Type: Physician Type: ED Provider Notes Filed: 12/23/2022 12:19 AM Note Text: ED Provider Note Patient Name: Kamla Hedrick : 1970 SERVICE DATE: 12/22/22 History Patient presents with: Neck Pain Weakness Patient presents the emergency room with concerns over rash, nonspecific skin eruption, and concern that she is got bugs, possibly termites. Patient however related different triage complaint, including neck pain, weakness to slip filler. Patient states she is living in apartment now, she has a rash that she had for some period time, she knows there is a termite infestation, and she is afraid that she has termites. Patient has no pets, however there are some cats in her garage. Patient states has been scratching, and she tried to show me photos on her phone which are bugs that she pulled from herself. Patient denies any history of substance abuse, current medications of abuse, or other. Daughter does not have rash. Denies bed bug, scabies, or travel exposure. Rash Location: Shoulder/arm and head/neck Severity: Mild Onset quality: Gradual Timing: Intermittent Progression: Spreading Chronicity: Recurrent Context: insect bite/sting Context: not and not sick contacts Relieved by: Nothing Worsened by: Nothing Ineffective treatments: None tried Associated symptoms: no fever, no nausea, no shortness of breath, not vomiting and not wheezing PAST MEDICAL HISTORY Diagnosis Date - Arthritis - Fibromyalgia 2010 - Hypertension pt denies - Kidney stones - Lordosis of lumbar region - Low back pain - Low iron - Mild intermittent asthma without complication 05/18/2016 - Osteomyelitis (HCC) - Osteomyelitis (HCC) december 2015 spinal -pseudomonas - Psychiatric disorder PTSD, BIPOLAR,ANXIETY, DEPRESSION PAST SURGICAL HISTORY Procedure Laterality Date - ABSCESS DRAIN 03/2009 abscess Peritonsillar - CHOLECYSTECTOMY 05/21/2016 - PAST SURGICAL HISTORY OF tubal ligation FAMILY HISTORY Problem Relation Age of Onset - Diabetes Mother - Ischemic Heart Disease Mother - Ischemic Heart Disease Father - Diabetes Father Social History Tobacco Use - Smoking status: Former Years: 4.00 Types: Cigarettes Quit date: 10/11/2012 Years since quittin.2 - Smokeless tobacco: Former - Tobacco comments: just smoked socially for 4 years, vapes daily Vaping Use - Vaping Use: current everyday user - Substances: Nicotine, Flavoring Substance and Sexual Activity - Alcohol use: No - Drug use: No Types: Heroin Comment: last used 10/2017 - Sexual activity: Yes Partners: Male ALLERGIES Allergen Reactions - Doxycycline Rash - Latex Unknown - Motrin [Ibuprofen] GI Upset - Naproxen Intolerance - Penicillins Itching Any cillins per patient Review of Systems Constitutional: Negative for fever. Respiratory: Negative for shortness of breath and wheezing. Gastrointestinal: Negative for nausea and vomiting. Skin: Positive for rash. All other systems reviewed and are negative. Physical Exam Vitals [12/22/222052] BP Pulse Temp Temp src Resp SpO2 Weight Height 142/94 81 36.6 ?C (97.8 ?F) Temporal 18 98 % 66.2 kg (146 lb) 1.676 m (5' 6) Physical Exam Vitals and nursing note reviewed. Constitutional: General: She is not in acute distress. Appearance: She is not ill-appearing or toxic-appearing. Comments: Patient appears older than stated age, she is somewhat disheveled HENT: Head: Normocephalic and atraumatic. Eyes: General: Right eye: No discharge. Left eye: No discharge. Pulmonary: Effort: No respiratory distress. Musculoskeletal: Right lower leg: No edema. Left lower leg: No edema. Skin: General: Skin is warm and dry. Comments: Patient has evidence of some scratch b[place], old superficial abrasions, specifically around the anterior aspect of her neck, chest, shoulders and upper back, there is a couple small scabbed over lesions which are pinpoint, I do not appreciate any vesicles, there is no linear distribution, there is no lesions on the tongue, mucous membranes, or on the hands or palms Neurological: General: No focal deficit present. Mental Status: She is alert and oriented to person, place, and time. Mental status is at baseline. Psychiatric: Comments: Anxious, restless, pacing around the room Diagnostic Testing ED Labs Ordered and Reviewed - No data to display Procedures ED Course / Clinical Impression Clinical Impressions as of 12/22/224 Rash and nonspecific skin eruption Infestation by bed bug MDM / Disposition / Plan 10:24 PM I have seen and evaluated patient, and went back to compare your discharge paperwork, as informed by nursing staff, patient states I cannot wait for my discharge paperwork and she has left the building. Pat (more content not included)... Normal [facility] ED NOTEon 12-22-2022 ED NOTE HNO ID: [id number] Author: Gaby Davidson RN Service: ? Author Type: Registered Nurse Type: ED Notes Filed: 12/22/2022 9:07 PM Note Text: Pt comes to ED c/o a crook and pain in her neck She states that she feels like there is something in her neck because she can hear a crunch when she turns her neck side to side. Pt has been dealing with termites in her home and thinks that her symptoms have something to do with these bugs. Pt states that when she raises her arms its a struggle for her because it feels like something is on her pushing her arms down. Pt states that whatever it is it is scaring her. Pt is AANDOx3, vss. Will continue to monitor. Normal [facility] Office Visit (Audiology)on 09-16-2021 Follow-up visit Diagnoses/Problems Sensorineural hearing loss, bilateral (389.18) (H90.3) Patient Discussion/Summary Otoscopy showed clear ear canals bilaterally. Immittance testing indicated normal middle ear function bilaterally. Acoustic reflexes were absent bilaterally at 500-4000 Hz. Behavioral hearing testing indicated mild to severe sensorineural hearing loss bilaterally. Thresholds are stable. Word recognition testing was completed using recorded speech at the patient's most comfortable level as documented on the audiogram. Scores were fair bilaterally. Care Plan: 1. Follow-up with managing physicians as recommended. 2. Retest hearing annually to monitor. 3. Hearing aid evaluation. Patient was encouraged to contact the insurance company to inquire about hearing aid benefits and in-network hearing aid providers, if applicable. If no insurance benefits are available, [facility] can provide hearing aid services. 4. Potential study candidate. She consented to being contacted to learn more and for further testing. Chief Complaint annual hearing evaluation Reference Documentation See scanned note Procedure Note: audiogram. History of Present Illness Ms. Hedrick presents for a hearing evaluation. She has known hearing loss bilaterally and has used hearing aids in the past. She is no longer using hearing aids as she has lost both of them. She feels that her hearing is getting worse in the left ear and complains of aural fullness in that ear. She denies tinnitus and dizziness. She has not had any recent ear infections. Patient's preferred language: [place] Preferred language of the parent, legal guardian or surrogate decision-maker of this minor or incapacitated patient: [place]se No overt signs of domestic violence/neglect/abuse. No referral made to [facility]. Pain not interfering with optimal level of function or ability to assess and/or treat. Pain Scale rank: 0/10 Pain Scale used: Numeric No referral made to primary care provider (PCP). Factors/Barriers influencing patient's ability to complete assessment or learn: none. Person taught: patient. Readiness to learn: no barriers. Results of Teaching/Counseling: verbalize recall / understanding and teaching complete. Social History Former smoker (V15.82) (Z87.891) Procedure Otoscopy showed clear ear canals bilaterally. Immittance testing indicated normal middle ear function bilaterally. Acoustic reflexes were absent bilaterally at 500-4000 Hz. Behavioral hearing testing indicated mild to severe sensorineural hearing loss bilaterally. Thresholds are stable. Word recognition testing was completed using recorded speech at the patient's most comfortable level as documented on the audiogram. Scores were fair bilaterally. Care Plan: 1. Follow-up with managing physicians as recommended. 2. Retest hearing annually to monitor. 3. Hearing aid evaluation. Patient was encouraged to contact the insurance company to inquire about hearing aid benefits and in-network hearing aid providers, if applicable. If no insurance benefits are available, [facility] can provide hearing aid services. 4. Potential study candidate. She consented to being contacted to learn more and for further testing. Time: 6835-0405 Signatures Electronically signed by : Vahe Azul [facility]; Sep 16 2021 3:41PM EST (Author) Normal [facility] ED NOTEon 09-11-2021 ED NOTE HNO ID: [id number] Author: Ines Cevallos RN Service: Emergency Medicine Author Type: Registered Nurse Type: ED Notes Filed: 09/11/2021 1:30 AM Note Text: Dc instr to fu w pmd, return prn. Verb und, agreeable to plan. Patient is AANDO, skin wdp, resps unlabored, speech clear. Cheerful and interactive. Ambulates with steady upright gait Normal [facility] ED NOTE HNO ID: [id number] Author: Sarah Rangel RN Service: Emergency Medicine Author Type: Registered Nurse Type: ED Notes Filed: 09/12/2021 11:48 AM Note Text: Patient Call Back Information ? How are you doing ? better ? Did we appropriately manage your pain? Yes ? Did you understand your discharge instructions? Yes ? Did you get your prescriptions filled? ? Were you able to make a follow-up appointment with your physician? Yes ? Were you comfortable during your stay here? Yes ? Did a member of the ER nursing team round on you during your visit? Yes ? You will receive a patient satisfaction survey in the mail in the nest 2 weeks, please take the time to fill out the survey as your input from your ER visit is very important to us. Yes ? Can we do anything else to help you? No Normal [facility] ED NOTE HNO ID: [id number] Author: Ines Cevallos RN Service: Emergency Medicine Author Type: Registered Nurse Type: ED Notes Filed: 09/11/2021 12:57 AM Note Text: Patient states there is something in my back and it's been going on for a month. When I look in the mirror, I can see it moving around. patient states there is no pain except when it's moving around. Normal [facility] ED PROV NOTEon 09-11-2021 ED PROV NOTE HNO ID: [id number] Author: Ramya Hull MD Service: Emergency Medicine Author Type: Physician Type: ED Provider Notes Filed: 09/11/2021 8:07 AM Note Text: ED Provider Note Patient Name: Kamla Hedrick SERVICE DATE: 09/11/21 History Patient presents with: Back Pain The patient is a 50-year-old female presenting today with complaint of back pain. Specifically she complains of feeling as if there is a magnet in her back causing her a lecture static issues over the last week. She had her daughter looked at her back and thought that she saw a slug underneath of her skin. She states she could not sleep with the thought of something being under her skin and so she came in for evaluation. She states she feels pain when the slug moves. She states she will feel it on both sides of her back. She states that her daughter described a tim movement underneath of her skin which is what made her think of a slug or warm. Patient is never had anything like this before. In terms of the electro static complaint, patient states for the last week she feels as if her close are cleaning and not free-flowing to her as well as her blankets are clinging to her scrunching up her body. Same thing with her close or her shirts. She actually made an appointment with her primary care physician tomorrow about it to show them what is going on. She states that it makes her worried that this is happening that she is carrying the static electricity. She thought it was due to the TV or the antenna or wires coming from the TV. She has no pain associated with this electromagnetic phenomenon. She denies any numbness tingling or weakness. She denies any SI or HI. She denies any visual or auditory hallucinations. PAST MEDICAL HISTORY Diagnosis Date - Arthritis - Fibromyalgia 2010 - Hypertension pt denies - Kidney stones - Lordosis of lumbar region - Low back pain - Low iron - Mild intermittent asthma without complication 05/18/2016 - Osteomyelitis (HCC) - Osteomyelitis (HCC) december 2015 spinal -pseudomonas - Psychiatric disorder PTSD, BIPOLAR,ANXIETY, DEPRESSION PAST SURGICAL HISTORY Procedure Laterality Date - ABSCESS DRAIN 03/2009 abscess Peritonsillar - CHOLECYSTECTOMY 05/21/2016 - PAST SURGICAL HISTORY OF tubal ligation FAMILY HISTORY Problem Relation Age of Onset - Diabetes Mother - Ischemic Heart Disease Mother - Ischemic Heart Disease Father - Diabetes Father Social History Tobacco Use - Smoking status: Current Every Day Smoker Years: 4.00 Types: Cigarettes Last attempt to quit: 10/11/2012 Years since quittin.9 - Smokeless tobacco: Former User - Tobacco comment: just smoked socially for 4 years, vapes daily Vaping Use - Vaping Use: Not on file Substance and Sexual Activity - Alcohol use: No - Drug use: No Types: Heroin Comment: last used 10/2017 - Sexual activity: Yes Partners: Male ALLERGIES Allergen Reactions - Doxycycline Rash - Latex Unknown - Motrin [Ibuprofen] GI Upset - Naproxen Intolerance - Penicillins Itching Any cillins per patient Review of Systems Constitutional: Negative for activity change, appetite change, chills, fatigue and fever. HENT: Negative for congestion, ear pain, rhinorrhea and sore throat. Respiratory: Negative for cough and shortness of breath. Cardiovascular: Negative for chest pain and palpitations. Gastrointestinal: Negative for abdominal pain, diarrhea, nausea and vomiting. Genitourinary: Negative for dysuria, frequency and urgency. Musculoskeletal: Positive for back pain. Negative for arthralgias and myalgias. Skin: Negative for rash and wound. Neurological: Negative for dizziness, tremors, weakness, numbness and headaches. Psychiatric/Behavioral: Negative for self-injury and suicidal ideas. All other systems reviewed and are negative. Physical Exam Vitals [09/11/21 0059] BP Pulse Temp Temp src Resp SpO2 Weight Height 114/89 68 36.4 ?C (97.5 ?F) Temporal 20 100 % 81.6 kg (180 lb) -- Physical Exam Vitals and nursing note reviewed. Constitutional: General: She is not in acute distress. Appearance: She is well-developed. HENT: Head: Normocephalic and atraumatic. Nose: Nose normal. No congestion. Mouth/Throat: Mouth: Mucous membranes are moist. Pharynx: Oropharynx is clear. Eyes: Extraocular Movements: Extraocular movements intact. Pupils: Pupils are equal, round, and reactive to light. Cardiovascular: Rate and Rhythm: Normal rate and regular rhythm. Pulses: Normal pulses. Heart sounds: Normal heart sounds. No murmur heard. No friction rub. No gallop. Pulmonary: Effort: Pulmonary effort is normal. No respiratory distress. Breath sounds: Normal breath sounds. No stridor. No wheezing, rhonchi or rales. Abdominal: General: Bowel sounds are normal. There is no distension. Palpations: Abdomen is soft. Tenderness: (more content not included)... Normal [facility] DISCHARGE SUMMARYon 02-16-20 DISCHARGE SUMMARY NAME: KHAI HEDRICK R: [id number] DATE: 01/13/2017DISCHARGE DATE: 01/15/2017The patient was discharged from the service of Dr. Perez, for whom this dictationis being presented on 01/15/2017.DISCHARGE MEDICATIONS: None.LABORATORY VALUES: CBC within normal limits. INR 0.95. General biochemical screenwithin normal limits. Urine toxicology screen positive for opiates. Breathalyzer0.HOSPITAL COURSE: This patient presented to the [facility] with a history of the useof heroin from age of 45, injecting up to 1.5 g intravenously daily, having Xanax 3mg orally once a week to once a month. Smoking cigarettes to a half pack daily anddenying prior chemical dependency treatment. While on the [facility], Kamla wasallowed nicotine replacement therapy and tapering doses of tramadol andbuprenorphine and p.r.n. doses of phenobarbital. She participated in groupactivAmbassador, underwent a chemical dependency assessment and signed a certificate ofrelease and left the [facility] against medical advice.FINAL DIAGNOSES:1. Opiate use disorder, severe.2. Benzodiazepine use disorder, moderate.3. Tobacco use disorder, severe.4. History of hypertension.5. History of fibromyalgia.6. History of treated iron-deficiency anemia. IVÁN PEREZ MDDICTATED BY: LORENA BURTON/PERLA/[id number]: 02/15/2017 12:27:02 E/S: Nba Perez MD02/22/17 1253Signature on [facility] PT NAME: POOL HEDRICK#: [id number] [place] [address] ACCT: [id number]: 72DISCHARGE SUMMARY Normal [facility] PHENOBARBon 01-15-2017 PHENOBARB 5.5 ug/mL Low 15-40 [facility] Comment on above: Order Comment: CONSE RVATION Performed By: #### L 600.70162 ####Test performed at: [place] [address] Nasreen 01-13-2017 Alanine aminotransferase (ALT) 19 U/L Normal 13-61 [facility] Comment on above: Order Comment: CONSE RVATION Performed By: #### L 500.57783, L500.83660, L500.29255, L500.37657, L500.29135 ####Test performed at: [place] [address] Laura 01-13-2017 Aspartate aminotransferase (AST) 16 U/L Normal 15-37 [facility] Comment on above: Order Comment: CONSE RVATION Performed By: #### L 500.68952, L500.87316, L500.41745, L500.51540, L500.69169 ####Test performed at: [place] [id number] BASIC MET PANELon 01-13-2017 Anion gap 11 mmol/L Normal 6-18 [facility] Comment on above: Order Comment: CONSE RVATION Performed By: #### L 500.43204, L500.57284, L500.69810, L500.37019, L500.51674 ####Test performed at: [place] [address] Calcium 9.0 mg/dL Normal 8.5-10.1 [facility] Comment on above: Order Comment: CONSE RVATION Performed By: #### L 500.78270, L500.99140, L500.96694, L500.13972, L500.58577 ####Test performed at: [place] [id number] Chloride 107 mmol/L Normal 98-107 [facility] Comment on above: Order Comment: CONSE RVATION Performed By: #### L 500.85301, L500.87338, L500.40208, L500.04158, L500.97922 ####Test performed at: [place] [id number] CO2 27 mmol/L Normal 21-32 [facility] Comment on above: Order Comment: CONSE RVATION Performed By: #### L 500.55189, L500.14327, L500.31577, L500.10147, L500.28628 ####Test performed at: [place] [id number] Creatinine 0.882 mg/dL Normal 0.550-1.020 [facility] Comment on above: Order Comment: CONSE RVATION Performed By: #### L 500.26517, L500.60894, L500.06242, L500.95911, L500.01142 ####Test performed at: [place] [address] Glucose mass conc 100 mg/dL Normal 74-106 [facility] Comment on above: Order Comment: CONSE RVATION Performed By: #### L 500.42298, L500.46316, L500.49178, L500.50225, L500.79017 ####Test performed at: [place] [id number] OSM 290 mosm/kg Normal 270-300 [facility] Comment on above: Order Comment: CONSE RVATION Performed By: #### L 500.85687, L500.65603, L500.37511, L500.93725, L500.88636 ####Test performed at: [place] [address] Potassium molar conc 4.1 mmol/L Normal 3.5-5.1 [facility] Comment on above: Order Comment: CONSE RVATION Performed By: #### L 500.30493, L500.64359, L500.63576, L500.19834, L500.20801 ####Test performed at: [place] [id number] Sodium 141 mmol/L Normal 136-145 [facility] Comment on above: Order Comment: CONSE RVATION Performed By: #### L 500.93347, L500.78394, L500.26183, L500.46811, L500.15729 ####Test performed at: [place] [id number] Urea nitrogen 8 mg/dL Normal 7-18 [facility] Comment on above: Order Comment: CONSE RVATION Performed By: #### L 500.34192, L500.81939, L500.50306, L500.91214, L500.74455 ####Test performed at: [place] [id number] CBCon 01-13-2017 Erythrocyte distribution width Auto Ratio (RBC) 14.3 % Normal 11.5-14.5 [facility] Comment on above: Order Comment: CONSE RVATION Performed By: #### L 200.08849 ####Test performed at: [place] [id number] Erythrocytes (RBC) 0.000 10*6/uL Normal 0-0.012 [facility] Comment on above: Order Comment: CONSE RVATION Performed By: #### L 200.60827 ####Test performed at: [place] [id number] Erythrocytes (RBC) 4.70 10*6/uL Normal 3.5-5.5 [facility] Comment on above: Order Comment: CONSE RVATION Performed By: #### L 200.39200 ####Test performed at: [address] [address] Hematocrit (HCT) 38.2 % Normal 36.0-48.0 [facility] Comment on above: Order Comment: CONSE RVATION Performed By: #### L 200.31240 ####Test performed at: [address] [address] Hemoglobin mass conc (Bld) 12.7 g/dL Normal 12.0-15.0 [facility] Comment on above: Order Comment: CONSE RVATION Performed By: #### L 200.15273 ####Test performed at: [place] [id number] MCH 27.0 pg Normal 25.4-34.6 [facility] Comment on above: Order Comment: CONSE RVATION Performed By: #### L 200.11282 ####Test performed at: [address] [address] MCHC mass conc (RBC) 33.2 g/dL Normal 31.5-36.5 [facility] Comment on above: Order Comment: CONSE RVATION Performed By: #### L 200.97408 ####Test performed at: [address] [address] MCV 81.3 fL Normal 79.0-98.0 [facility] Comment on above: Order Comment: CONSE RVATION Performed By: #### L 200.08136 ####Test performed at: [address] [address] NRBC % 0.0 /100 WBC Normal 0-0.2 [facility] Comment on above: Order Comment: CONSE RVATION Performed By: #### L 200.89850 ####Test performed at: [address] [address] Platelet mean volume (PMV) 9.3 fL Normal 8.7-12.4 [facility] Comment on above: Order Comment: CONSE RVATION Performed By: #### L 200.28628 ####Test performed at: [address] [address] Platelets 307 10*3/uL Normal 140-440 [facility] Comment on above: Order Comment: CONSE RVATION Performed By: #### L 200.06423 ####Test performed at: [address] [address] WBC (Leukocytes) 4.3 10*3/uL Normal 3.9-11.0 [facility] Comment on above: Order Comment: CONSE RVATION Performed By: #### L 200.59030 ####Test performed at: [place] [address] EST. CREAT CLRon 01-13-2017 Creatinine 123.998 ML/MIN Normal [facility] Comment on above: Order Comment: CONSE RVATION Result Comment: This result is an ESTIMATED blood creatinine clearance valuewhich is derived from the patient age, sex, weight, andprevious blood creatinine result. Performed By: #### L 500.00052, L500.32428, L500.87925, L500.77578, L500.47049 ####Test performed at: [place] [address] GFR ESTIMATEon 01-13-2017 IF AMER > 60 Normal > 60 [facility] Comment on above: Order Comment: CONSE RVATION Result Comment: eGFR (Estimated GFR) Units of measure:mL/min/1.73 meters sq.*CALCULATION REVISED 05/07/2015;IDMS-traceable MDRD equationeGFR is derived from the reexpressed MDRD Study equationusing the following parameters: serum creatinine, age,gender and race. An eGFR<60 mL/min/1.73m2 for >3 monthsis consistent with chronic kidney disease. Refer to KDOQIguidelines for clinical interpretation. Performed By: #### L 500.07335, L500.34767, L500.68307, L500.82899, L500.82996 ####Test performed at: [place] [address] IF non-AFR AMER > 60 Normal > 60 [facility] Comment on above: Order Comment: CONSE RVATION Performed By: #### L 500.11124, L500.34550, L500.73016, L500.91664, L500.57350 ####Test performed at: [place] [address] LIMIT UR TOXon 01-13-2017 UR AMPH Negative Normal Negative [facility] Comment on above: Order Comment: CONSE RVATION Result Comment: CUTO FN=4371 Performed By: #### L 600.01812 ####Test performed at: [address] [address] UR VU Negative Normal Negative [facility] Comment on above: Order Comment: CONSE RVATION Result Comment: CUTO GD=236 Performed By: #### L 600.02414 ####Test performed at: [place] [id number] UR TONG Negative Normal Negative [facility] Comment on above: Order Comment: CONSE RVATION Result Comment: CUTO KQ=003 Performed By: #### L 600.97304 ####Test performed at: [place] [address] UR LISA/THC Negative Normal Negative [facility] Comment on above: Order Comment: CONSE RVATION Result Comment: CUTO FF=50 Performed By: #### L 600.85553 ####Test performed at: [place] [id number] UR CHRISTOPHER Negative Normal Negative [facility] Comment on above: Order Comment: CONSE RVATION Result Comment: CUTO ZZ=279 Performed By: #### L 600.62950 ####Test performed at: [address] [address] UR ECSTASY Negative Normal Negative [facility] Comment on above: Order Comment: CONSE RVATION Result Comment: CUTO BY=651 Performed By: #### L 600.68833 ####Test performed at: [address] [address] UR METH Negative Normal Negative [facility] Comment on above: Order Comment: CONSE RVATION Result Comment: CUTO CX=101 Performed By: #### L 600.88774 ####Test performed at: [address] [address] UR OPIAT Positive Invalid Interpretation Code Negative [facility] Comment on above: Order Comment: CONSE RVATION Result Comment: CUTO HN=128 Performed By: #### L 600.01744 ####Test performed at: [place] [address] UR OXYCOCONE Negative Normal Negative [facility] Comment on above: Order Comment: CONSE RVATION Result Comment: CUTO FM=287 Performed By: #### L 600.21866 ####Test performed at: [place] [address] UR PCP Negative Normal Negative [facility] Comment on above: Order Comment: CONSE RVATION Result Comment: CUTO FF=25 Performed By: #### L 600.39385 ####Test performed at: [place] [address] PH TOX 6.0 Normal 5.0-8.0 [facility] Comment on above: Order Comment: CONSE RVATION Performed By: #### L 600.23334 ####Test performed at: [place] [address] TOX COMMENT *PLEASE NOTE: Normal [facility] Comment on above: Order Comment: CONSE RVATION Result Comment: UNCO NFIRMED Toxicology results. For MEDICAL purposes only. Performed By: #### L 600.39054 ####Test performed at: [place] [address] PROTIMEon 01-13-2017 INR Coag RelTime (PPP) 0.95 {INR} Normal 0.00-1.20 [facility] Comment on above: Order Comment: CONSE RVATIONList patient's anticoagulants for PT: NONE SPECIFIED Result Comment: Carlos mmended therapeutic range is an INR of 2.0-3.0 exceptfor prevention of recurrent acute NV and mechanicalprosthetic heart valve where an INR of 2.5-3.5 isrecommended. Performed By: #### L 300.99004 ####Test performed at: [place] [id number] PT SEC 10.1 seconds Normal 9.7-11.5 [facility] Comment on above: Order Comment: CONSE RVATIONList patient's anticoagulants for PT: NONE SPECIFIED Performed By: #### L 300.24130 ####Test performed at: [place] [address] UR BUPREN/NORBUon 01-13-2017 UR BUPREN/NORBU Negative Normal Negative [facility] Comment on above: Order Comment: CONSE RVATION Result Comment: CUTO FF=10 Performed By: #### L 600.61441 ####Test performed at: [place] [address] UR HCG QUALon 01-13-2017 UR HCG QUAL Negative Normal [facility] Comment on above: Order Comment: CONSE RVATION Performed By: #### L 600.70785 ####Test performed at: [place] [address] Vital Signs Date Time Vital Sign Value Performing Clinician Facility 10-18-2024 15:05-0400 Diastolic blood pressure 73 mm[Hg] Amanda Canela MD Work Phone: [facility] 10-18-2024 15:05-0400 Heart rate 77 /min Amanda Canela MD Work Phone: [facility] 10-18-2024 15:05-0400 SaO2% (BldA) [Mass fraction] 98 % Amanda Canela MD Work Phone: [facility] 10-18-2024 15:05-0400 Systolic blood pressure 105 mm[Hg] Amanda Canela MD Work Phone: [facility] 07-28-2024 12:15-0500 Body height 167.6 cm Ramya Guan CNP Work Phone: [facility] 07-28-2024 12:15-0500 Body mass index (BMI) [Ratio] 27.76 kg/m2 Ramya Guan CNP Work Phone: [facility] 07-28-2024 12:15-0500 Body temperature 97.39 [degF] Ramya Segovia APRN - APPLICATION SOFTWARE DEVELOPER Work Phone: [facility] 07-28-2024 12:15-0500 Body weight 78.02 kg Ramya Segovia APRN - APPLICATION SOFTWARE DEVELOPER Work Phone: [facility] 07-28-2024 12:15-0500 Diastolic blood pressure 72 mm[Hg] Ramya Segovia APRN - APPLICATION SOFTWARE DEVELOPER Work Phone: [facility] 07-28-2024 12:15-0500 Heart rate 86 /min Ramya Segovia APRN - APPLICATION SOFTWARE DEVELOPER Work Phone: [facility] 07-28-2024 12:15-0500 SaO2% (BldA) [Mass fraction] 98 % Ramya Segovia APRN - APPLICATION SOFTWARE DEVELOPER Work Phone: [facility] 07-28-2024 12:15-0500 Systolic blood pressure 116 mm[Hg] Ramya Segovia APRN - APPLICATION SOFTWARE DEVELOPER Work Phone: [facility] 03-28-2024 13:50-0400 Body height 167.6 cm Roseline Thakkar DO Work Phone: [facility] 03-28-2024 13:50-0400 Body mass index (BMI) [Ratio] 28.73 kg/m2 Roseline Thakkar DO Work Phone: [facility] 03-28-2024 13:50-0400 Body temperature 97 [degF] Roseline Thakkar DO Work Phone: [facility] 03-28-2024 13:50-0400 Body weight 80.74 kg Roseline Thakkar DO Work Phone: [facility] 03-28-2024 13:50-0400 Diastolic blood pressure 66 mm[Hg] Roseline Thakkar DO Work Phone: [facility] 03-28-2024 13:50-0400 Heart rate 64 /min Roseline Thorneugh DO Work Phone: [facility] 03-28-2024 13:50-0400 SaO2% (BldA) [Mass fraction] 95 % Roseline Ariane DO Work Phone: [facility] 03-28-2024 13:50-0400 Systolic blood pressure 100 mm[Hg] Roseline Ariane DO Work Phone: [facility] 01-11-2024 15:12-0400 Body height 167.6 cm Jennifer Falconon PA-C Work Phone: [facility] 01-11-2024 15:12-0400 Body mass index (BMI) [Ratio] 28.89 kg/m2 Jennifer Rocha PA-C Work Phone: [facility] 01-11-2024 15:12-0400 Body weight 81.19 kg Jennifer Rocha PA-C Work Phone: [facility] 01-11-2024 15:12-0400 Diastolic blood pressure 65 mm[Hg] Jennifer Rocha PA-C Work Phone: [facility] 01-11-2024 15:12-0400 Heart rate 64 /min Jennifer Rocha PA-C Work Phone: [facility] 01-11-2024 15:12-0400 SaO2% (BldA) [Mass fraction] 96 % Jennifer Rocha PA-C Work Phone: [facility] 01-11-2024 15:12-0400 Systolic blood pressure 95 mm[Hg] Jennifer Rocha PA-C Work Phone: [facility] 11-12-2023 11:39-0400 Body height 167.6 cm Roseline Ariane DO Work Phone: [facility] 11-12-2023 11:39-0400 Body mass index (BMI) [Ratio] 29.7 kg/m2 Roseline Ariane DO Work Phone: [facility] 11-12-2023 11:39-0400 Body weight 83.46 kg Roseline Thakkar DO Work Phone: [facility] 11-12-2023 11:39-0400 Diastolic blood pressure 79 mm[Hg] Roseline Thakkar DO Work Phone: [facility] 11-12-2023 11:39-0400 Heart rate 69 /min Roseline Thakkar DO Work Phone: [facility] 11-12-2023 11:39-0400 SaO2% (BldA) [Mass fraction] 96 % Roseline Thakkar DO Work Phone: [facility] 11-12-2023 11:39-0400 Systolic blood pressure 120 mm[Hg] Roseline Thakkar DO Work Phone: [facility] 06-25-2023 16:46-0500 Body temperature 97.81 [degF] Ashlee Callow PHLEBOTOMY DIRECTOR.APPLICATION SOFTWARE DEVELOPER Work Phone: [facility] 06-25-2023 16:46-0500 Body weight 77.11 kg Ashlee Callow PHLEBOTOMY DIRECTOR.APPLICATION SOFTWARE DEVELOPER Work Phone: [facility] 06-25-2023 16:46-0500 Diastolic blood pressure 70 mm[Hg] Ashlee Callow PHLEBOTOMY DIRECTOR.APPLICATION SOFTWARE DEVELOPER Work Phone: [facility] 06-25-2023 16:46-0500 Heart rate 75 /min Ashlee Callow PHLEBOTOMY DIRECTOR.APPLICATION SOFTWARE DEVELOPER Work Phone: [facility] 06-25-2023 16:46-0500 Respiratory rate 20 /min Ashlee Callow PHLEBOTOMY DIRECTOR.APPLICATION SOFTWARE DEVELOPER Work Phone: [facility] 06-25-2023 16:46-0500 SaO2% (BldA) [Mass fraction] 98 % Ashlee Callow PHLEBOTOMY DIRECTOR.APPLICATION SOFTWARE DEVELOPER Work Phone: [facility] 06-25-2023 16:46-0500 Systolic blood pressure 109 mm[Hg] Ashlee Callow PHLEBOTOMY DIRECTOR.APPLICATION SOFTWARE DEVELOPER Work Phone: [facility] 05-12-2023 15:46-0400 Body temperature 97.39 [degF] Jen Gore PHLEBOTOMY DIRECTOR.APPLICATION SOFTWARE DEVELOPER Work Phone: [facility] 05-12-2023 15:46-0400 Body weight 71.12 kg Jen Gore PHLEBOTOMY DIRECTOR.APPLICATION SOFTWARE DEVELOPER Work Phone: [facility] 05-12-2023 15:46-0400 Diastolic blood pressure 74 mm[Hg] Jen Gore PHLEBOTOMY DIRECTOR.APPLICATION SOFTWARE DEVELOPER Work Phone: [facility] 05-12-2023 15:46-0400 Heart rate 74 /min Jen Gore PHLEBOTOMY DIRECTOR.APPLICATION SOFTWARE DEVELOPER Work Phone: [facility] 05-12-2023 15:46-0400 Respiratory rate 21 /min Jen Gore PHLEBOTOMY DIRECTOR.APPLICATION SOFTWARE DEVELOPER Work Phone: [facility] 05-12-2023 15:46-0400 SaO2% (BldA) [Mass fraction] 99 % Jen Gore PHLEBOTOMY DIRECTOR.APPLICATION SOFTWARE DEVELOPER Work Phone: [facility] 05-12-2023 15:46-0400 Systolic blood pressure 90 mm[Hg] Jen Gore PHLEBOTOMY DIRECTOR.APPLICATION SOFTWARE DEVELOPER Work Phone: [facility] 03-03-2023 11:00-0400 Body temperature 97.7 [degF] Dr. Fabio Mcbride Work Phone: [facility] 03-03-2023 11:00-0400 Diastolic blood pressure 71 mm[Hg] Dr. Fabio Mcbride Work Phone: [facility] 03-03-2023 11:00-0400 Heart rate 74 /min Dr. Fabio Mcbride Work Phone: [facility] 03-03-2023 11:00-0400 Respiratory rate 18 /min Dr. Fabio Mcbride Work Phone: [facility] 03-03-2023 11:00-0400 SaO2% (BldA) [Mass fraction] 100 % Dr. Fabio Mcbride Work Phone: [facility] 03-03-2023 11:00-0400 Systolic blood pressure 116 mm[Hg] Dr. Fabio Mcbride Work Phone: [facility] 03-01-2023 13:37-0400 Body height 167.[address] Fabio Mcbride Work Phone: [facility] 03-01-2023 13:37-0400 Body weight 67.[address] Fabio Mcbride Work Phone: [facility] 03-01-2023 02:58-0400 Body mass index (BMI) [Ratio] 23.8 kg/m2 Dr. Fabio Mcbride Work Phone: [facility] 03-01-2023 01:51-0400 Body temperature 97.9 [degF] [facility] 03-01-2023 01:51-0400 Diastolic blood pressure 86 mm[Hg] [facility] 03-01-2023 01:51-0400 Heart rate 80 /min [facility] 03-01-2023 01:51-0400 Respiratory rate 16 /min [facility] 03-01-2023 01:51-0400 SaO2% (BldA) [Mass fraction] 98 % [facility] 03-01-2023 01:51-0400 Systolic blood pressure 117 mm[Hg] [facility] 03-01-2023 00:55-0400 Body height 165.1 cm [facility] 03-01-2023 00:55-0400 Body mass index (BMI) [Ratio] 27.9 kg/m2 [facility] 03-01-2023 00:55-0400 Body weight 76.2 kg [facility] Encounters Encounter Date Encounter Type Care Provider Facility Start: 11-28-2024 End: 12-04-2024 ambulatory Em Jennings Clinical Communication Start: 11-28-2024 End: 12-04-2024 Patient encounter procedure Em Jennings Clinical Communication Start: 11-22-2024 End: 11-23-2024 Refill Roseline Thakkar DO Work Phone: [facility] Comment on above: Anemia, unspecified type Start: 10-18-2024 End: 10-18-2024 Office outpatient visit 25 minutes Amanda Canela MD Work Phone: [facility] Comment on above: Acute bilateral knee pain (Primary Dx); Family history of rheumatoid arthritis; Varicose veins of both lower extremities with pain Start: 10-18-2024 End: 10-18-2024 ambulatory ROSELINE THAKKAR [facility] Start: 09-04-2024 End: 09-04-2024 ambulatory Anna Gallardo RN [facility] Clinical Communication Start: 09-04-2024 End: 09-04-2024 Patient encounter procedure Anna Gallardo RN [facility] Clinical Communication Start: 07-31-2024 End: 07-31-2024 Emergency department patient visit SHIRA Magalys TERESO Facility:[facility] Start: 07-28-2024 End: 07-28-2024 ambulatory ROSELINE ARIANE [facility] Start: 07-28-2024 End: 07-28-2024 Office outpatient visit 10 minutes Ramya Segovia PHLEBOTOMY DIRECTOR - APPLICATION SOFTWARE DEVELOPER Work Phone: [facility] Comment on above: Seborrheic dermatiti s of scalp Start: 07-28-2024 End: 07-28-2024 Office outpatient visit 15 minutes Ramya Segovia PHLEBOTOMY DIRECTOR - APPLICATION SOFTWARE DEVELOPER Work Phone: [facility] Comment on above: Seborrheic dermatiti s of scalp Start: 06-23-2024 End: 06-26-2024 Telephone encounter Jennifer Rocha PA-C Work Phone: [facility] Communication Comment on above: Test Scheduling Start: 06-05-2024 End: 06-14-2024 Refill Roseline Ariane DO Work Phone: [facility] Comment on above: Essential (primary) hypertension Med Refill Start: 04-13-2024 End: 04-13-2024 Emergency department patient visit MS. VERN THORNEGH Facility:[id number] Start: 03-28-2024 End: 03-28-2024 Office outpatient visit 25 minutes Roseline Thakkar DO Work Phone: [facility] Comment on above: Bipolar I disorder ( HCC) (Primary Dx); Rash; Dysuria; Gastroesophageal reflux disease without esophagitis Start: 03-28-2024 End: 03-28-2024 ambulatory ROSELINE THAKKAR [facility] Start: 03-15-2024 End: 03-21-2024 ambulatory Roya Carlin RN [facility] Clinical Communication Start: 03-15-2024 End: 03-21-2024 Patient encounter procedure Ryoa Carlin RN [facility] Clinical Communication Start: 03-03-2024 End: 03-03-2024 Emergency department patient visit ANNY MARK MD Facility:[id number] Start: 01-11-2024 End: 01-11-2024 ambulatory JENNIFER ROCHA [facility] Start: 01-11-2024 End: 01-11-2024 Office outpatient visit 10 minutes Jennifer Rocha PA-C Work Phone: [facility] Comment on above: Lymphadenopathy, cer vical (Primary Dx) Start: 01-11-2024 End: 01-11-2024 Office outpatient visit 15 minutes Jennifer Rocha PA-C Work Phone: [facility] Comment on above: Lymphadenopathy, cer vical (Primary Dx) Start: 12-07-2023 Telephone encounter Roseline alberto DO Work Phone: [facility] Comment on above: palpable lymph nodes Start: 11-12-2023 End: 11-12-2023 Office outpatient new 45 minutes Roseline Thakkar DO Work Phone: [facility] Comment on above: Scalp lesion (Primar y Dx); Essential (primary) hypertension; Pure hypercholesterolemia; Encounter for screening mammogram for malignant neoplasm of breast; Elevated serum glucose; Mild intermittent asthma without complication; Gastroesophageal reflux disease without esophagitis; Rash; Anemia, unspecified type Start: 09-23-2023 Telephone encounter Shira cox MD Work Phone: [facility] Clinical Communication Comment on above: Med Refill Start: 09-17-2023 End: 09-17-2023 Emergency department patient visit CARLTON SOTO MD Facility:[id number] Start: 09-16-2023 ambulatory Jennyfermarcila Giron RN [facility] Clinical Communication Start: 09-16-2023 Patient encounter procedure Jennyfer Jon RN [facility] Clinical Communication Start: 07-07-2023 Refill Shira moody MD Work Phone: [facility] Comment on above: Essential (primary) hypertension Start: 06-25-2023 End: 06-25-2023 [facility] Facility:[facility] Start: 06-25-2023 End: 06-25-2023 Patient encounter procedure Ashleejamil Iyer PHLEBOTOMY DIRECTOR.APPLICATION SOFTWARE DEVELOPER Work Phone: [facility] Comment on above: Itching (Primary Dx) Start: 05-12-2023 End: 05-12-2023 [facility] Facility:[facility] Start: 05-12-2023 End: 05-12-2023 Subsequent hospital visit by physician Xr [facility] Work Phone: Radiology Comment on above: Acute cough [R05.1] Start: 05-12-2023 End: 05-12-2023 Patient encounter procedure [facility] PHLEBOTOMY DIRECTOR.APPLICATION SOFTWARE DEVELOPER Work Phone: [facility] Comment on above: Acute cough (Primary Dx); History of asthma Start: 03-03-2023 Non-patient / Non-visit Dr. Luis Enrique Mcbride Work Phone: [facility] Work Phone: Start: 03-02-2023 Non-patient / Non-visit Dr. Luis Enrique Mcbride Work Phone: [facility] Work Phone: Start: 03-01-2023 End: 03-03-2023 [facility] Start: 03-01-2023 End: 03-03-2023 Evaluation and management of inpatient [facility] Work Phone: Start: 12-22-2022 End: 12-23-2022 Emergency department patient visit MEGHNA LEON EITANJORDI Facility:[facility] Start: 09-16-2022 Don moody MD Work Phone: [facility] Start: 07-24-2022 ambulatory Kalee meadows RN [facility] Clinical Communication Start: 07-24-2022 Patient encounter procedure Kalee Patel RN [facility] Clinical Communication Start: 07-23-2022 ambulatory Marva Dye RN [facility] Clinical Communication Start: 07-23-2022 Patient encounter procedure Marva Dye RN [facility] Clinical Communication Start: 09-16-2021 [facility] visit new patient Lilliameri sonam Y Edison Work Phone: RP-Oawfysgil-Vjdoz MAC1 205 [place] Work Phone: Start: 01-18-2019 Patient encounter procedure Susan Liangjuan OR-Wjvnyyeph-Nugxi Work Phone: Start: 12-01-2018 Patient encounter procedure Susan Oatesguerojuan ST-Mgzbghkar-Fmfkz Work Phone: Start: 10-21-2018 [facility] Start: 10-14-2018 Patient encounter procedure Susan Matthieu Facility:[id number] Start: 09-27-2018 Patient encounter procedure Susan Mtathieu Facility:[id number] Start: 09-06-2018 [facility] Start: 09-02-2018 Patient encounter procedure Susan Liangi Facility:[id number] Start: 08-05-2018 Patient encounter procedure Kathleen Simmsdavidjay [facility] Start: 07-08-2018 [facility] Start: 05-20-2018 Patient encounter procedure MCKENZIE LOMELI [facility] Start: 04-12-2018 Patient encounter procedure Susan [facility] Work Phone: Start: 09-24-2017 Patient encounter procedure Susan [facility] Work Phone: Start: 09-10-2017 Ambulatory Pro Ellis Facility:P [facility] Start: 09-10-2017 Patient encounter procedure Susan Sommers RJ-Eucmyjius-Fqoaa Work Phone: Start: 07-23-2017 Ambulatory Pro [facility] Facility:[facility] Start: 07-23-2017 Patient encounter procedure Susan JEFFERY[facility] Work Phone: Start: 07-09-2017 Ambulatory Pro Ellis Facility:P [facility] Start: 07-09-2017 Patient encounter procedure Susan JEFF[facility] Work Phone: Start: 01-13-2017 End: 01-15-2017 [facility] Start: 01-13-2017 Ambulatory [facility] Facilit y:[facility] Start: 01-05-2017 End: 01-05-2017 Emergency department patient visit [facility] Start: 05-01-2016 End: 05-01-2016 Emergency department patient visit UNKNOWN PROVIDER Facility:[facility] Procedures Date Procedure Procedure Detail Performing Clinician Start: 07-28-2024 Follow-up visit Follow-up ALFREDO SEGOVIA Start: 03-28-2024 Urnls dip stick/tabl et rgnt auto w/o microscopy Roseline Thakkar DO Work Phone: Start: 11-23-2023 Lipid 1996 panel - S arsalan or Plasma Roseline Thakkar DO Work Phone: Start: 05-12-2023 Radiologic exam ches t 2 views Jen Gore APRN.APPLICATION SOFTWARE DEVELOPER Work Phone: Start: 05-10-2020 Microscopic observat ion [Identifier] in Cervix by Cyto stain Marva Dye RN Start: 08-02-2019 Colonoscopy Shira woods MD Work Phone: Plan of Treatment Date Care Activity Detail Author Start: 12-19-2047 RSV Immunization for Adults (1 - 1-dose 75+ series) RSV Immunization for Adults (1 - 1-dose 75+ series) [facility] Start: 2032 RSV Immunization aged 60 or older (1 - 1-dose 60+ series) RSV Immunization aged 60 or older (1 - 1-dose 60+ series) [facility] Start: 08-02-2029 Screening for malignant neoplasm of colon [facility] Start: 11-22-2028 Lipid panel Lipid Panel [facility] Start: 04-05-2028 HPV Testing HPV Testing [facility] Start: 04-05-2028 Pap Testing Pap Testing [facility] Start: 04-05-2028 Screening for malignant neoplasm of cervix Cervical Cancer Screening [facility] Start: 11-22-2026 Diabetes mellitus screening Diabetes Screening [facility] Start: 05-13-2025 Depression Monitoring Depression Monitoring [facility] Start: 03-19-2025 Influenza vaccination Influenza Vaccine (Season Ended) [facility] Start: 11-22-2024 Diabetes mellitus screening Diabetes Screening [facility] Start: 11-14-2024 End: 11-14-2024 Patient encounter procedure [facility] Medical [facility] Start: 10-18-2024 End: 10-18-2025 C reactive protein [Mass/volume] in Serum or Plasma C-reactive protein Lab Routine Acute bilateral knee pain Family history of rheumatoid arthritis Expected: 10/18/2024 (Approximate), Expires: 10/18/2025 [facility] Comment on above: Expected: 10/18/2024 (Approximate), Expi res: 10/18/2025 Start: 10-18-2024 End: 10-18-2025 Erythrocyte sedimentation rate Sedimentation rate, automated Lab Routine Acute bilateral knee pain Family history of rheumatoid arthritis Expected: 10/18/2024 (Approximate), Expires: 10/18/2025 [facility] Comment on above: Expected: 10/18/2024 (Approximate), Expi res: 10/18/2025 Start: 10-18-2024 End: 10-18-2025 Magnesium [Mass/volume] in Serum or Plasma Magnesium Lab Routine Acute bilateral knee pain Expected: 10/18/2024 (Approximate), Expires: 10/18/2025 [facility] Comment on above: Expected: 10/18/2024 (Approximate), Expi res: 10/18/2025 Start: 10-18-2024 End: 10-18-2025 Nuclear Ab [Titer] in Serum by Immunofluorescence ABBIE Lab Routine Acute bilateral knee pain Family history of rheumatoid arthritis Expected: 10/18/2024 (Approximate), Expires: 10/18/2025 [facility] Comment on above: Expected: 10/18/2024 (Approximate), Expi res: 10/18/2025 Start: 10-18-2024 End: 10-18-2025 Renal function 2000 panel - Serum or Plasma Renal function panel Lab Routine Acute bilateral knee pain Expected: 10/18/2024 (Approximate), Expires: 10/18/2025 [facility] Comment on above: Expected: 10/18/2024 (Approximate), Expi res: 10/18/2025 Start: 10-18-2024 End: 10-18-2025 Rheumatoid factor [Units/volume] in Serum or Plasma Rheumatoid factor Lab Routine Acute bilateral knee pain Family history of rheumatoid arthritis Expected: 10/18/2024 (Approximate), Expires: 10/18/2025 [facility] Comment on above: Expected: 10/18/2024 (Approximate), Expi res: 10/18/2025 Start: 10-18-2024 End: 10-18-2025 XR Knee - bilateral 4 Views XR knee 4+ views bilateral Imaging Routine Acute bilateral knee pain Expected: 10/18/2024, Expires: 10/18/2025 [facility] Work Phone: Comment on above: Expected: 10/18/2024, Expires: Start: 07-04-2024 End: 07-04-2024 Patient encounter procedure 07/04/2024 2:00 PM EST Office Visit [facility] [place] [address] [place] [address] Ramya Segovia, PHLEBOTOMY DIRECTOR - APPLICATION SOFTWARE DEVELOPER [address] [place] [address] [facility] [place] Start: 06-07-2024 Subsequent hospital visit by physician 06/07/2024 1:00 PM EST Hospital Encounter LOCATED WITHIN [facility] [address] [place] [id number] Jennifer Rocha PA-C [address] [place] [address] LOCATED WITHIN [facility] [place] [facility] Start: 05-13-2024 Depression Monitoring Depression Monitoring [facility] Start: 03-28-2024 End: 03-28-2025 Bacteria identified in Urine by Culture Urine culture Microbiology Routine Dysuria Expected: 03/28/2024 (Approximate), Expires: 03/28/2025 [facility] Work Phone: Comment on above: Expected: 03/28/2024 (Approximate), Expi res: 03/28/2025 Start: 03-28-2024 End: 03-28-2024 Patient encounter procedure 03/28/2024 1:40 PM EDT Office Visit [facility] [address] [place] [id number] Roseline Thakkar DO [address] [place] [address] [facility] Start: 03-19-2024 COVID-19 Vaccine ( season) COVID-19 Vaccine ( season) [facility] Start: 03-19-2024 COVID-19 Vaccine ( season) COVID-19 Vaccine ( season) [facility] Start: 03-19-2024 Influenza vaccination [facility] Start: 02-11-2024 End: 02-11-2024 Patient encounter procedure 02/11/2024 11:20 AM EDT Office Visit [facility] [address] [place] [phone] Roseline Thakkar DO [address] [place] [address] [facility] Start: 01-11-2024 End: 01-10-2025 US Head and neck soft tissue US head neck soft tissue Imaging Routine Lymphadenopathy, cervical Expected: 01/11/2024, Expires: 01/10/2025 [facility] Work Phone: Comment on above: Expected: 01/11/2024, Expires: Start: 12-16-2023 End: 12-16-2023 Patient encounter procedure 12/16/2023 2:40 PM EDT Office Visit [facility] [address] [place] [id number] Roseline Thakkar DO [address] [place] [address] [facility] Start: 11-12-2023 End: 11-11-2024 CBC panel - Blood by Automated count CBC Lab Routine Essential (primary) hypertension Expected: 11/12/2023 (Approximate), Expires: 11/11/2024 [facility] Comment on above: Expected: 11/12/2023 (Approximate), Expi res: 11/11/2024 Start: 11-12-2023 End: 11-11-2024 Comprehensive metabolic 1998 panel - Serum or Plasma Comprehensive metabolic panel Lab Routine Essential (primary) hypertension Expected: 11/12/2023 (Approximate), Expires: 11/11/2024 [facility] Comment on above: Expected: 11/12/2023 (Approximate), Expi res: 11/11/2024 Start: 11-12-2023 End: 01-11-2025 DBT Breast - bilateral screening Bilateral screening mammogram with tomosynthesis Imaging Routine Encounter for screening mammogram for malignant neoplasm of breast Expected: 11/12/2023, Expires: 01/11/2025 [facility] Comment on above: Expected: 11/12/2023, Expires: Start: 11-12-2023 End: 11-11-2024 Hemoglobin A1c measurement Hemoglobin A1c Lab Routine Elevated serum glucose Expected: 11/12/2023 (Approximate), Expires: 11/11/2024 [facility] Work Phone: Comment on above: Expected: 11/12/2023 (Approximate), Expi res: 11/11/2024 Start: 11-12-2023 End: 11-11-2024 Lipid 1996 panel - Serum or Plasma Lipid panel Lab Routine Pure hypercholesterolemia Expected: 11/12/2023 (Approximate), Expires: 11/11/2024 [facility] Comment on above: Expected: 11/12/2023 (Approximate), Expi res: 11/11/2024 Start: 11-12-2023 End: 11-11-2024 Thyrotropin [Units/volume] in Serum or Plasma TSH Lab Routine Essential (primary) hypertension Expected: 11/12/2023 (Approximate), Expires: 11/11/2024 [facility] Comment on above: Expected: 11/12/2023 (Approximate), Expi res: 11/11/2024 Start: 09-29-2023 End: 09-29-2023 Patient encounter procedure 09/29/2023 2:00 PM EDT Office Visit [facility] [address] [place] [address] [place] [phone] Roseline Thakkar DO [address] [place], [place] [id number] [facility] Start: 07-27-2023 End: 07-27-2023 Patient encounter procedure 07/27/2023 11:00 AM EST Office Visit [facility] [address] [place] [phone] Shira Rider MD [address] [place] [address] [place], [place] [id number] [facility] Start: 05-10-2023 Screening for malignant neoplasm of cervix [facility] Start: 03-19-2023 COVID-19 Vaccine ( season) COVID-19 Vaccine ( season) [facility] Start: 03-19-2023 Influenza [facility] Start: 03-03-2023 Patient discharge [facility] Start: 03-02-2023 End: 03-03-2023 [facility] Start: 03-02-2023 Assessment using assessment scale [facility] Start: 03-02-2023 Provision of activity privileges [facility] Start: 03-01-2023 End: 03-02-2023 [facility] Start: 03-01-2023 Following clinical pathway protocol [facility] Start: 03-01-2023 Assessment of risk of venous thromboembolism [facility] Start: 03-01-2023 Inhalation therapy procedure [facility] Start: 03-01-2023 Introduction of urinary catheter [facility] Start: 03-01-2023 Notification of physician [facility] Start: 03-01-2023 Oxygen therapy [facility] Start: 03-01-2023 Provision of activity privileges [facility] Start: 03-01-2023 Referral to service [facility] Start: 03-01-2023 Vital signs measurements [facility] Start: 03-01-2023 Admission procedure [facility] Start: 03-01-2023 [facility] Start: 03-01-2023 Patient referral to dietitian [facility] Start: 2022 Shingrix Vaccine (1 of 2) Shingrix Vaccine (1 of 2) [facility] Start: 2022 Zoster Vaccines (1 of 2) Zoster Vaccines (1 of 2) [facility] Start: 09-18-2022 Diabetes mellitus screening Diabetes Screening [facility] Start: 07-19-2022 Depression Assessment Depression Assessment [facility] Start: 03-19-2022 Influenza vaccination Influenza Vaccine (#1) [facility] Start: 2017 Cologuard (FIT-DNA) Cologuard (FIT-DNA) [facility] Start: 2017 Colonoscopy Colonoscopy [facility] Start: 2017 Colorectal Cancer Screening Colorectal Cancer Screening [facility] Start: [address] Colonography [facility] Start: 2017 Diabetes Screening Diabetes Screening [facility] Start: 2017 Fecal Occult Blood Fecal Occult Blood [facility] Start: 2017 Lipid 1996 panel - Serum or Plasma Lipid Screening [facility] Start: 2017 Lipid panel Lipid Screening [facility] Start: 2017 Screening for malignant neoplasm of colon [facility] Start: 2017 Sigmoidoscopy Sigmoidoscopy [facility] Start: 2012 Mammography Mammogram Screening [facility] Start: 2012 Screening for malignant neoplasm of breast [facility] Start: 07-20-2012 DTaP/Tdap/Td Vaccines (1 - Tdap) DTaP/Tdap/Td Vaccines (1 - Tdap) [facility] Start: 2002 Screening for malignant neoplasm of cervix HPV/Cotest [facility] Start: 12-19-1991 DTaP/Tdap/Td Vaccines (1 - Tdap) DTaP/Tdap/Td Vaccines (1 - Tdap) [facility] Start: 12-19-1991 Hepatitis A Vaccines (1 of 2 - Risk 2-dose series) Hepatitis A Vaccines (1 of 2 - Risk 2-dose series) [facility] Start: 12-19-1991 Hepatitis B Vaccine (1 of 3 - 19+ 3-dose series) Hepatitis B Vaccine (1 of 3 - 19+ 3-dose series) [facility] Start: 12-19-1991 Hepatitis B Vaccines (1 of 3 - 19+ 3-dose series) Hepatitis B Vaccines (1 of 3 - 19+ 3-dose series) [facility] Start: 12-19-1991 Pneumococcal Vaccine: 50+ Years (1 of 2 - PCV) Pneumococcal Vaccine: 50+ Years (1 of 2 - PCV) [facility] Start: 12-19-1991 Urine microalbumin profile DTaP,Tdap,Td Vaccine (1 - Tdap) [facility] Start: 1990 Anxiety Screening Anxiety Screening [facility] Start: 1990 Depression Screening Depression Screening [facility] Start: 1984 Depresssion Monitoring Depresssion Monitoring [facility] Start: 1978 Pneumococcal vaccination [facility] Start: 1978 Pneumococcal Vaccine: Pediatrics (0 to 5 Years) and At-Risk Patients (6 to 64 Years) (1 of 2 - PCV) Pneumococcal Vaccine: Pediatrics (0 to 5 Years) and At-Risk Patients (6 to 64 Years) (1 of 2 - PCV) [facility] Start: 1973 Hepatitis A Vaccines (1 of 2 - Risk 2-dose series) Hepatitis A Vaccines (1 of 2 - Risk 2-dose series) [facility] Start: 1973 MMR Vaccines (1 of 1 - Standard series) MMR Vaccines (1 of 1 - Standard series) [facility] Start: 06-19-1973 Covid-19 Vaccine (#1) Covid-19 Vaccine (#1) [facility] Start: 1972 Hepatitis B Vaccine (1 of 3 - 3-dose series) Hepatitis B Vaccine (1 of 3 - 3-dose series) [facility] Start: 1972 Hepatitis B Vaccines (1 of 3 - 3-dose series) Hepatitis B Vaccines (1 of 3 - 3-dose series) [facility] Start: 1972 Lipid panel Lipid Panel [facility] Start: 1972 Screening for malignant neoplasm of colon [facility] HIV 1+2 Ab+HIV1 p24 Ag [Presence] in Serum or Plasma by Immunoassay [facility] Patient referral [facility] Work Phone: PCR for Hepatitis C [facility] Treponema sp Ab [Pre sence] in Serum [facility] Immunizations Immunization Date Immunization Notes Care Provider Yvon sharma 05-01-2013 influenza virus vacc ine, unspecified formulation Shira Rider MD Work Phone: [facility] 07-19-2012 tetanus and diphther ia toxoids, not adsorbed, for adult use Jennyfer Jon RN [facility] 07-19-2012 tuberculin skin test ; purified protein derivative solution,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 Types: Cigarettes Quit date: 11/06/2014 Years since quittin.7 Passive exposure: Past Smokeless tobacco: Never Tobacco comments: Quit smoking: Vape/e-cigarettes Substance Use Topics Alcohol use: No Alcohol/week: 0.0 standard drinks of alcohol Subjective: Review of Systems Constitutional: Negative for chills and fever. Skin: Positive for rash. Objective: BP 116/72 (BP Location: Right arm, Patient Position: Sitting, BP Cuff Size: Adult) Pulse 86 Temp 36.3 C (97.4 F) (Temporal) Ht 5' 6 (1.676 m) Wt 172 lb (78 kg) SpO2 98% BMI 27.76 kg/m Physical Exam Vitals and nursing note reviewed. Constitutional: Appearance: Normal appearance. HENT: Head: Normocephalic and atraumatic. Skin: Comments: +patchy hair loss at crown. There are scattered plaques to the scalp, raised, crusty patches. Neurological: Mental Status: She is alert. Assessment: Diagnosis Plan 1. Seborrheic dermatitis of scalp Plan: Kamla was seen today for follow-up. Diagnoses and all orders for this visit: Seborrheic dermatitis of scalp Unstable. Discussed with patient her exam today is consistent with chronic, recurrent problem but dose not appear secondarily infected. This may have been the case prior as she seems to be picking at the lesions during exam today. Need to get those records from [facility]-she will complete an zabrina at check out- I walked her to check out. Advised that ultimately this condition is best treated with dermatology and consistency with care and follow up are important for best outcomes. She verbalizes understanding and is thankful at the end of this visit. She will call dermatology today to make follow up appointment. Will review SW records once obtained and notify patient if any change to plan of care. Follow up if symptoms worsen or fail to improve. Goals None 'MAI Escoto 07/28/2024 12:50 PM documented in this encounter [facility] 07-28-2024 Miscellaneous Notes Addended by: RAMYA SEGOVIA on: 08/01/2024 09:14 AM Modules accepted: Level of Service documented in this encounter [facility] 07-28-2024 Note Addended by: RAMYA SEGOVIA on: 08/01/2024 09:14 AM Modules accepted: Level of Service [facility] 07-03-2024 Telephone encounter Note Spoke with pt advising message She advised her sx haven't resolved after finishing the medication Pt tried to get a refill but DDM advised she needs seen by the office Appt scheduled with tomorr [facility] 07-03-2024 Miscellaneous Notes Spoke with pt advising message She advised her sx haven't resolved after finishing the medication Pt tried to get a refill but DDM advised she needs seen by the office Appt scheduled with tomorr She needs to talk to [facility] about this. Not sure why she needs a refill of the med she already took for the mrsa. Name of caller: October Contact phone number: [phone] Relationship to Patient: patient Provider: Ariane Practice: [facility] Chief Complaint/Reason for Call: Patient called back in with the medication name for her MRSA. It is called ZYVIX (Lineolid). Please note and advise. Best time of day caller can be reached: any Patient advised that office/PCP has 24-48 business hours to return their call: No Lmom letting pt know Mychart message sent and needing for [facility] information to get list of Rx pt was on. Lmom to fill out ZABRINA for Rx from [facility]. Please obtain records from [facility]. Name of caller: October Contact phone number: [phone] Relationship to Patient: patient Provider: ariane Practice: [facility] Chief Complaint/Reason for Call: patient says she went to [facility] and they told her she has mrsa in her head and they started her on medication She could not give me name of medication but she said they told her to stop taking the cipro and take this other one but she is out of the correct one she will call drug store and get the name she needs more antibiotic Best time of day caller can be reached: any Patient advised that office/PCP has 24-48 business hours to return their call: no documented in this encounter [facility] 07-03-2024 Telephone encounter Note She needs to talk to [facility] about this. Not sure why she needs a refill of the med she already took for the mrsa. [facility] 06-30-2024 Telephone encounter Note Name of caller: October Contact phone number: [phone] Relationship to Patient: patient Provider: Ariane Practice: [facility] Chief Complaint/Reason for Call: Patient called back in with the medication name for her MRSA. It is called ZYVIX (Lineolid). Please note and advise. Best time of day caller can be reached: any Patient advised that office/PCP has 24-48 business hours to return their call: No [facility] 06-30-2024 Miscellaneous Notes Name of caller: October Contact phone number: [phone] Relationship to Patient: patient Provider: Ariane Practice: Lynda FRASER Chief Complaint/Reason for Call: Patient called back in with the medication name for her MRSA. It is called DARYIX (Lineolid). Please note and advise. Best time of day caller can be reached: any Patient advised that office/PCP has 24-48 business hours to return their call: No Lmom letting pt know [facility] message sent [place] [facility] was [place]. Lmom to fill out ZABRINA for Rx from [facility]. Please obtain records from [facility]. Name of caller: October Contact phone number: [phone] Relationship to Patient: patient Provider: ariane Practice: lynda Chief Complaint/Reason for Call: patient says she went to [facility] and they told her she has mrsa in her head and they started her on medication She could not give me name of medication but she said they told her to stop taking the cipro and take this other one but she is out of the correct one she will call drug store and get the name she needs more antibiotic Best time of day caller can be reached: any Patient advised that office/PCP has 24-48 business hours to return their call: no documented in this encounter [facility] 06-23-2024 Telephone encounter Note We have been unable to reach your patient to schedule their testing. Test Name: Head and neck ultrasound 1st Attempt: 01/15/24 via [employer] message 2nd Attempt: Cancelled/no show 01/19/24, 01/29/24, 06/07/24 TE sent to office, cancel request 06/23/24 [facility] 06-23-2024 Miscellaneous Notes We have been unable to reach your patient to schedule their testing. Test Name: Head and neck ultrasound 1st Attempt: 01/15/24 via [employer] message 2nd Attempt: Cancelled/no show 01/19/24, 01/29/24, 06/07/24 TE sent to office, cancel request 06/23/24 documented in this encounter [facility] 06-20-2024 Telephone encounter Note Lmom letting pt know [facility] message sent and needing for [facility] information to get list of Rx pt was on. [facility] 06-20-2024 Miscellaneous Notes Lmom letting pt know [facility] message sent and needing for [facility] information to get list of Rx pt was on. Lmom to fill out ZABRINA for Rx from [facility]. Please obtain records from [facility]. Name of caller: October Contact phone number: [phone] Relationship to Patient: patient Provider: ariane Practice: lynda Chief Complaint/Reason for Call: patient says she went to [facility] and they told her she has mrsa in her head and they started her on medication She could not give me name of medication but she said they told her to stop taking the cipro and take this other one but she is out of the correct one she will call drug store and get the name she needs more antibiotic Best time of day caller can be reached: any Patient advised that office/PCP has 24-48 business hours to return their call: no documented in this encounter [facility] 06-16-2024 Telephone encounter Note Lmom to fill out ZABRINA for Rx from [facility]. [facility] 06-16-2024 Miscellaneous Notes Lmom to fill out ZABRINA for Rx from [facility]. Please obtain records from [facility]. Name of caller: October Contact phone number: [phone] Relationship to Patient: patient Provider: ariane Practice: lynda Chief Complaint/Reason for Call: patient says she went to [facility] and they told her she has mrsa in her head and they started her on medication She could not give me name of medication but she said they told her to stop taking the cipro and take this other one but she is out of the correct one she will call drug store and get the name she needs more antibiotic Best time of day caller can be reached: any Patient advised that office/PCP has 24-48 business hours to return their call: no documented in this encounter [facility] 06-06-2024 Telephone encounter Note Please obtain records from [facility]. [facility] 06-06-2024 Miscellaneous Notes Please obtain records from [facility]. Name of caller: October Contact phone number: [phone] Relationship to Patient: patient Provider: ariane Practice: lynda Chief Complaint/Reason for Call: patient says she went to [facility] and they told her she has mrsa in her head and they started her on medication She could not give me name of medication but she said they told her to stop taking the cipro and take this other one but she is out of the correct one she will call drug store and get the name she needs more antibiotic Best time of day caller can be reached: any Patient advised that office/PCP has 24-48 business hours to return their call: no documented in this encounter [facility] 06-05-2024 Telephone encounter Note Name of caller: October Contact phone number: [phone] Relationship to Patient: patient Provider: Ariane Practice: Lynda Primary Chief Complaint/Reason for Call: Patient said she needs her amlodipine sent to the [facility] on . Please advise Best time of day caller can be reached: any Patient advised that office/PCP has 24-48 business hours to return their call: No [facility] 06-05-2024 Miscellaneous Notes Name of caller: October Contact phone number: [phone] Relationship to Patient: patient Provider: Ariane Practice: Lynda Primary Chief Complaint/Reason for Call: Patient said she needs her amlodipine sent to the [facility] on [address] Please advise Best time of day caller can be reached: any Patient advised that office/PCP has 24-48 business hours to return their call: No documented in this encounter [facility] 06-05-2024 Telephone encounter Note Name of caller: October Contact phone number: [phone] Relationship to Patient: patient Provider: ariane Practice: lynda Chief Complaint/Reason for Call: patient says she went to [facility] and they told her she has mrsa in her head and they started her on medication She could not give me name of medication but she said they told her to stop taking the cipro and take this other one but she is out of the correct one she will call drug store and get the name she needs more antibiotic Best time of day caller can be reached: any Patient advised that office/PCP has 24-48 business hours to return their call: no [facility] 04-13-2024 Note ED Nursing Discharge Summary Entered On: 04/13/2024 17:21 EDT Performed On: 04/13/2024 17:00 EDT by Agustina Goodman RN [place] Information [id number] ED IV's : No IV ED IV Site Assessment : No IV ED Vitals Completed : Yes ED Final Assessment Completed : Yes ED Progress Note Completed : Yes Complete all PRN/Pain response forms? : Yes ED Disassociate Patient from Monitor : Yes Updated Depart Time : Yes ED Belongings sent w patient [id number] : Not applicable Agustina Goodman RN - 04/13/2024 17:21 EDT Education Instructions given to : Patient TeachBack Methodology : Explanation, Printed Material Barriers to Learning : None evident Agustina Goodman RN - 04/13/2024 17:21 EDT ED Assistance Summary Assistance Given? : No Agustina Goodman RN - 04/13/2024 17:21 EDT [facility] 03-28-2024 History of Present illness Narrative Images from the original note were not included. [facility] [address] [facility] [id number] Visit Type: Office Visit PCP: Roseline Hutchinson Ariane, DO Reason for Visit: Rash (Rash/bumps are not improving. Patient reports rash all over body not going away. (Possibly from roommate) ), UTI (UTI symptoms. Reports urgency, burning, spasms ), and Discuss Medications (Wants to take Topamax only prn, also wants to increase Pepcid) Assessment and Plan Kamla was seen today for rash, uti and discuss medications. Diagnoses and all orders for this visit: Bipolar I disorder (HCC) Comments: managed per psych. takes topamax for headaches and anxiety. uses prn. Orders: - topiramate (Topamax) 100 MG tablet; Take 1 tablet (100 mg) by mouth 2 times daily. Rash Comments: concerned about apperance of lesions on her arms and hands - perhaps molluscum? referral to ID as we are not making progress with derm at this time Orders: - [facility] Infectious Disease; Future Dysuria Comments: treat empirically with cipro d/t multiple drug allergies. urine cx pending. Orders: - AMB POC URINALYSIS DIP STICK AUTO W/O MICRO - Urine culture; Future - Urine culture - ciprofloxacin (Cipro) 500 MG tablet; Take 1 tablet (500 mg) by mouth 2 times daily for 7 days. Gastroesophageal reflux disease without esophagitis Comments: continue pepcid 40mg bid. Orders: - famotidine (Pepcid) 40 MG tablet; Take 1 tablet (40 mg) by mouth 2 times daily. Other orders - albuterol 108 (90 Base) MCG/ACT inhaler; Inhale 2 puffs every 4 hours as needed for wheezing. Follow up if symptoms worsen or fail to improve. There are no Patient Instructions on file for this visit. Subjective HPI Notes the rash is still on her hands and legs. She attributes this to touching a friend at home helping her put on a coverup. She believes it's scabies. 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 Has appt with derm on Wednesday. (Dr. Sorto) They are focusing most on her hair d/t the hair loss. Giving medicated creams and shampoos. Notes at night she feels something move in her skin. Describes a form in her foot. Likes it's moving. Psych is not aware of her rash. See's her monthly. Notes feeling like she has a bladder infection. Urgency to urinate. Small amounts of urine. Abdominal pain. Topamax was 100mg bid. Then went to prn use. For mgmt of anxiety and migraines. Review of Systems Pertinent ROS noted in the HPI and all other systems are negative. Current Outpatient Medications Medication Sig Dispense Refill amLODIPine (Norvasc) 5 MG tablet Take 1 tablet (5 mg) by mouth daily. 90 tablet 3 buprenorphine-naloxone (Suboxone) 8-2 MG per sublingual film DISSOLVE 1 (ONE) FILM UNDER THE TONGUE EVERY MORNING, ONE-HALF film EVERY EVENING, and ONE-HALF film AT BEDTIME CeleXA 40 MG tablet Take 40 mg by mouth daily. ferrous sulfate 325 (65 Fe) MG tablet Take 1 tablet (325 mg) by mouth daily (with breakfast). 90 tablet 3 ketoconazole (NIZOral) 2 % shampoo Apply to scalp, lather, and allow to sit up to 5 minutes prior to rinsing. montelukast (Singulair) 10 MG tablet Take 1 tablet (10 mg) by mouth Nightly. 90 tablet 3 permethrin (Elimite) 5 % cream THOROUGHLY MASSAGE INTO SKIN FROM HEAD TO SOLES OF FEET ONE time. LEAVE ON FOR 8-14 Hours and THEN REMOVE BY THOROUGH WASHING. 60 g 3 polyethylene glycol, PEG, 3350 (Miralax) 17 g packet Dissolve seventeen (17) grams of powder in 8 ounce of water and drink once a day 100 each 3 Selenium Sulfide 2.25 % shampoo 1 luther, Topical, Q3DAYS, # 180 mL, Refill(s) 0, Date: 09/17/23 6:46:00 PM EST 180 mL 3 albuterol 108 (90 Base) MCG/ACT inhaler Inhale 2 puffs every 4 hours as needed for wheezing. 18 g 11 ciprofloxacin (Cipro) 500 MG tablet Take 1 tablet (500 mg) by mouth 2 times daily for 7 days. 14 tablet 0 famotidine (Pepcid) 40 MG tablet Take 1 tablet (40 mg) by mouth 2 times daily. 180 tablet 3 topiramate (Topamax) 100 MG tablet Take 1 tablet (100 mg) by mouth 2 times daily. 60 tablet 11 No current facility-administered medications for this visit. Patient Active Problem List Diagnosis Date Noted Hearing deficit, bilateral 05/13/2021 Vaping nicotine dependence, tobacco product 05/13/2021 Pure hypercholesterolemia 05/09/2021 Bipolar I disorder (HCC) 11/16/2019 Crohn's disease (HCC) 11/16/2019 Gonalgia 03/24/2018 Temporomandibular joint disorder 03/24/2018 Fibrositis 03/24/2018 Hepatitis C 08/23/2017 Mild intermittent asthma without complication 08/23/2017 Cervical spinal cord compression (HCC) 08/23/2017 Fibromyalgia 08/23/2017 Varicose veins of both lower extremities 07/16/2016 Gallbladder sludge 04/20/2016 Chronic back pain 04/20/2016 Hepatomegaly 04/20/2016 Essential hypertension, benign 02/27/2015 Degeneration of lumbar intervertebral disc 02/27/2015 Posttraumatic stress disorder 02/01/2015 Thyroid cyst 02/01/2015 Objective BP 100/66 (BP Location: Right arm, Patient Position: Sitting, BP Cuff Size: Adult) Pulse 64 Temp 36.1 C (97 F) (Temporal) Ht 5' 6 (1.676 m) Wt 178 lb (80.7 kg) SpO2 95% BMI 28.73 kg/m Physical Exam Gen: well appearing, no distress Skin: flesh colored papular lesions scattered along the dorsum of the hands and forearms Medications Discontinued During This Encounter Medication Reason hydrOXYzine pamoate (Vistaril) 50 MG capsule Med list cleanup naltrexone (Depade) 50 MG tablet Med list cleanup albuterol 108 (90 Base) MCG/ACT inhaler Reorder famotidine (Pepcid) 40 MG tablet Reorder topiramate (Topamax) 100 MG tablet Reorder Roseline Thakkar DO 03/28/2024 5:21 PM documented in this encounter [facility] 03-15-2024 Telephone encounter Note S: Patient spoke with [facility] nurse regarding rash B: Onset of symptoms/concern ongoing , no better A: Pt states was seen previously for a red bump rash all over from head to toes. Pt states was given a cream (permethrin) to try. Pt states it is making it look like she has lint balls coming out from the red spots all over. Pt states doesn't feel cream is working. Pt denies any other symptoms. R: Pt states needs appointment on a Wednesday or Wednesday. Pt scheduled for first available appointment within her scheduling restrictions. Pt scheduled for 03/[address] Thakkar. Pt instructed to arrive 15 minutes early, bring photo ID, insurance card and current med list. Patient understands care advice. No further needs at this time. Patient instructed to call back with new or worsening symptoms. Reason for Disposition Mild widespread rash (Exception: Heat rash lasting 3 days or less.) Protocols used: Rash or Redness - [id number] [facility] 03-15-2024 Miscellaneous Notes S: Patient spoke with [facility] nurse regarding rash B: Onset of symptoms/concern ongoing , no better A: Pt states was seen previously for a red bump rash all over from head to toes. Pt states was given a cream (permethrin) to try. Pt states it is making it look like she has lint balls coming out from the red spots all over. Pt states doesn't feel cream is working. Pt denies any other symptoms. R: Pt states needs appointment on a Wednesday or Wednesday. Pt scheduled for first available appointment within her scheduling restrictions. Pt scheduled for 03/[address] Thakkar. Pt instructed to arrive 15 minutes early, bring photo ID, insurance card and current med list. Patient understands care advice. No further needs at this time. Patient instructed to call back with new or worsening symptoms. Reason for Disposition Mild widespread rash (Exception: Heat rash lasting 3 days or less.) Protocols used: Rash or Redness - [id number] documented in this encounter [facility] 03-03-2024 Note ED Nursing Discharge Summary Entered On: 03/03/2024 12:07 EDT Performed On: 03/03/2024 12:00 EDT by Pat TRACY, Ramya FRANKLIN Information [id number] ED IV's : No IV ED IV Site Assessment : No IV ED Vitals Completed : Yes ED Final Assessment Completed : Yes ED Progress Note Completed : Yes Complete all PRN/Pain response forms? : Yes ED Disassociate Patient from Monitor : N/A Updated Depart Time : Yes ED Belongings sent w patient [id number] : Not applicable Ramya Stewart RN - 03/03/2024 12:07 EDT Education Instructions given to : Patient TeachBack Methodology : TeachBack, Demonstration, Explanation, Printed Material Barriers to Learning : None evident Ramya Stewart RN - 03/03/2024 12:07 EDT Post-Hospital Education Adult Grid Activity Expectations : Verbalizes understanding Importance of Follow-Up Visits : Verbalizes understanding Pain Management : Verbalizes understanding When to Call Health Care Provider : Verbalizes understanding Ramya Stewart RN - 03/03/2024 12:07 EDT Medication Education Adult Grid Drug to Drug Interactions : Verbalizes understanding Drug to Food Interactions : Verbalizes understanding Med Dosage, Route, Scheduling : Verbalizes understanding Med Generic/Brand Name, Purpose, Action : Verbalizes understanding Med Preadministration Procedures : Verbalizes understanding Med Special Administration, Storage : Verbalizes understanding Medication Precautions : Verbalizes understanding Safety, Medication : Verbalizes understanding Ramya Stewart RN - 03/03/2024 12:07 EDT ED Assistance Summary Assistance Given? : No Ramya Stewart RN - 03/03/2024 12:07 EDT [facility] 01-11-2024 History of Present illness Narrative Images from the original note were not included. [facility] [address] [facility] [address] Dept: [phone] Dept Reason for Visit: Neck Mass (Lymph node, x 3 wks, bilateral, painful) Assessment and Plan 1. Lymphadenopathy, cervical - US head neck soft tissue Follow up if symptoms worsen or fail to improve. Subjective HPI Pt presents today for evaluation of lymph nodes in her neck. Was seen by the licensed journeyman electrician and was told to follow up with PCP for this. Pt states she has noticed the enlarged lymph nodes for about a month. She did have an abscess drained on her head prior to this. Reports neck pain but has a chronic hx of this. No fevers or chills. No night sweats. No additional concerns today. Review of Systems Constitutional: Negative for activity change, appetite change, chills and fever. Respiratory: Negative for chest tightness and shortness of breath. Cardiovascular: Negative for chest pain and palpitations. Gastrointestinal: Negative for abdominal pain and blood in stool. Neurological: Negative for dizziness and light-headedness. Hematological: Positive for adenopathy. Allergies Allergen Reactions Penicillamine Swelling Bumps everywhere Aspirin Codeine Swelling Doxycycline Rash Other reaction(s): Itching Ibuprofen Nausea Only Other reaction(s): GI Upset Latex Nausea Only, Nausea And Vomiting and Rash Other reaction(s): Unknown Lurasidone Hcl Naproxen Swelling Other reaction(s): Intolerance, Upset Stomach Facial swelling Penicillins Itching Other reaction(s): swelling, itching Any cillins per patient Any cillins per patient Prochlorperazine Unknown Sulfamethoxazole-Trimethoprim Hives Outpatient Medications Prior to Visit Medication Sig Dispense Refill albuterol 108 (90 Base) MCG/ACT inhaler Inhale 2 puffs if needed. amLODIPine (Norvasc) 5 MG tablet Take 1 tablet (5 mg) by mouth daily. 90 tablet 3 CeleXA 40 MG tablet Take 40 mg by mouth daily. famotidine (Pepcid) 40 MG tablet Take 0.5 tablets (20 mg) by mouth 2 times daily. 90 tablet 3 ferrous sulfate 325 (65 Fe) MG tablet Take 1 tablet (325 mg) by mouth daily (with breakfast). 90 tablet 3 hydrOXYzine pamoate (Vistaril) 50 MG capsule Take 50 mg by mouth. montelukast (Singulair) 10 MG tablet Take 1 tablet (10 mg) by mouth Nightly. 90 tablet 3 naltrexone (Depade) 50 MG tablet Take 50 mg by mouth daily. permethrin (Elimite) 5 % cream THOROUGHLY MASSAGE INTO SKIN FROM HEAD TO SOLES OF FEET ONE time. LEAVE ON FOR 8-14 Hours and THEN REMOVE BY THOROUGH WASHING. 60 g 3 polyethylene glycol, PEG, 3350 (Miralax) 17 g packet Dissolve seventeen (17) grams of powder in 8 ounce of water and drink once a day 100 each 3 Selenium Sulfide 2.25 % shampoo 1 luther, Topical, Q3DAYS, # 180 mL, Refill(s) 0, Date: 09/17/23 6:46:00 PM EST 180 mL 3 topiramate (Topamax) 100 MG tablet Take 100 mg by mouth 2 times daily. No facility-administered medications prior to visit. Past Medical History: Diagnosis Date SEGUNDO (acute kidney injury) (HCC) 01/06/2016 Anxiety Asthma Bipolar disorder (HCC) Bipolar I disorder (HCC) 11/16/2019 control Mirena 10/10/14 BMI 33.0-33.9,adult Chronic back pain Degeneration of lumbar intervertebral disc Essential hypertension, benign Fibromyalgia GERD (gastroesophageal reflux disease) Hard of hearing has hearing aids Hepatitis C Labs 08/2017 and 12/2017 NO viral load; per ID, no follow up needed unless new exposures Hepatomegaly 04/20/2016 Heroin abuse (HCC) Osteomyelitis (HCC) thoracic- pseudomonas (December--@ [facility]) Posttraumatic stress disorder Pure hypercholesterolemia Pure hypercholesterolemia Thyroid cyst Trichimoniasis 04/2015 Social History Tobacco Use Smoking status: Former Current packs/day: 0.00 Types: Cigarettes Quit date: 11/06/2014 Years since quittin.1 Smokeless tobacco: Never Tobacco comments: Quit smoking: Vape/e-cigarettes Substance Use Topics Alcohol use: No Alcohol/week: 0.0 standard drinks of alcohol Past Surgical History: Procedure Laterality Date CHOLECYSTECTOMY TUBAL LIGATION 2004 Family History Problem Relation Name Age of Onset No Known Problems Sister No Known Problems Son No Known Problems Maternal Grandmother No Known Problems Paternal Grandfather No Known Problems Brother No Known Problems Brother No Known Problems Brother Hyperlipidemia Father No Known Problems Mother No Known Problems Daughter No Known Problems Maternal Grandfather Cancer Father lung No Known Problems Sister High Blood Pressure Other No Known Problems Brother No Known Problems Paternal Grandmother No Known Problems Brother Diabetes Other No Known Problems Daughter No Known Problems Sister Objective BP 95/65 Pulse 64 Ht 5' 6 (1.676 m) Wt 179 lb (81.2 kg) SpO2 96% BMI 28.89 kg/m Physical Exam Vitals and nursing note reviewed. Constitutional: Appearance: Normal appearance. Cardiovascular: Rate and Rhythm: Normal rate and regular rhythm. Heart sounds: Normal heart sounds. Pulmonary: Effort: Pulmonary effort is normal. Breath sounds: Normal breath sounds. Lymphadenopathy: Cervical: Cervical adenopathy present. Neurological: Mental Status: She is alert. Psychiatric: Mood and Affect: Mood normal. Behavior: Behavior normal. Thought Content: Thought content normal. Judgment: Judgment normal. Data Reviewed and Summarized Labs: Imaging/Testing: Jennifer Rocha PA-C documented in this encounter [facility] 01-11-2024 History of Present illness Narrative Images from the original note were not included. [facility] [address] [facility] [address] Dept: [phone] Dept Reason for Visit: Neck Mass (Lymph node, x 3 wks, bilateral, painful) Assessment and Plan 1. Lymphadenopathy, cervical - US head neck soft tissue Follow up if symptoms worsen or fail to improve. Subjective HPI Pt presents today for evaluation of lymph nodes in her neck. Was seen by the licensed journeyman electrician and was told to follow up with PCP for this. Pt states she has noticed the enlarged lymph nodes for about a month. She did have an abscess drained on her head prior to this. Reports neck pain but has a chronic hx of this. No fevers or chills. No night sweats. No additional concerns today. Review of Systems Constitutional: Negative for activity change, appetite change, chills and fever. Respiratory: Negative for chest tightness and shortness of breath. Cardiovascular: Negative for chest pain and palpitations. Gastrointestinal: Negative for abdominal pain and blood in stool. Neurological: Negative for dizziness and light-headedness. Hematological: Positive for adenopathy. Allergies Allergen Reactions Penicillamine Swelling Bumps everywhere Aspirin Codeine Swelling Doxycycline Rash Other reaction(s): Itching Ibuprofen Nausea Only Other reaction(s): GI Upset Latex Nausea Only, Nausea And Vomiting and Rash Other reaction(s): Unknown Lurasidone Hcl Naproxen Swelling Other reaction(s): Intolerance, Upset Stomach Facial swelling Penicillins Itching Other reaction(s): swelling, itching Any cillins per patient Any cillins per patient Prochlorperazine Unknown Sulfamethoxazole-Trimethoprim Hives Outpatient Medications Prior to Visit Medication Sig Dispense Refill albuterol 108 (90 Base) MCG/ACT inhaler Inhale 2 puffs if needed. amLODIPine (Norvasc) 5 MG tablet Take 1 tablet (5 mg) by mouth daily. 90 tablet 3 CeleXA 40 MG tablet Take 40 mg by mouth daily. famotidine (Pepcid) 40 MG tablet Take 0.5 tablets (20 mg) by mouth 2 times daily. 90 tablet 3 ferrous sulfate 325 (65 Fe) MG tablet Take 1 tablet (325 mg) by mouth daily (with breakfast). 90 tablet 3 hydrOXYzine pamoate (Vistaril) 50 MG capsule Take 50 mg by mouth. montelukast (Singulair) 10 MG tablet Take 1 tablet (10 mg) by mouth Nightly. 90 tablet 3 naltrexone (Depade) 50 MG tablet Take 50 mg by mouth daily. permethrin (Elimite) 5 % cream THOROUGHLY MASSAGE INTO SKIN FROM HEAD TO SOLES OF FEET ONE time. LEAVE ON FOR 8-14 Hours and THEN REMOVE BY THOROUGH WASHING. 60 g 3 polyethylene glycol, PEG, 3350 (Miralax) 17 g packet Dissolve seventeen (17) grams of powder in 8 ounce of water and drink once a day 100 each 3 Selenium Sulfide 2.25 % shampoo 1 luther, Topical, Q3DAYS, # 180 mL, Refill(s) 0, Date: 09/17/23 6:46:00 PM EST 180 mL 3 topiramate (Topamax) 100 MG tablet Take 100 mg by mouth 2 times daily. No facility-administered medications prior to visit. Past Medical History: Diagnosis Date SEGUNDO (acute kidney injury) (HCC) 01/06/2016 Anxiety Asthma Bipolar disorder (HCC) Bipolar I disorder (HCC) 11/16/2019 control Mirena 10/10/14 BMI 33.0-33.9,adult Chronic back pain Degeneration of lumbar intervertebral disc Essential hypertension, benign Fibromyalgia GERD (gastroesophageal reflux disease) Hard of hearing has hearing aids Hepatitis C Labs 08/2017 and 12/2017 NO viral load; per ID, no follow up needed unless new exposures Hepatomegaly 04/20/2016 Heroin abuse (HCC) Osteomyelitis (HCC) thoracic- pseudomonas ([place]--[facility]) Posttraumatic stress disorder Pure hypercholesterolemia Pure hypercholesterolemia Thyroid cyst Trichimoniasis 04/2015 Social History Tobacco Use Smoking status: Former Current packs/day: 0.00 Types: Cigarettes Quit date: 11/06/2014 Years since quittin.1 Smokeless tobacco: Never Tobacco comments: Quit smoking: Vape/e-cigarettes Substance Use Topics Alcohol use: No Alcohol/week: 0.0 standard drinks of alcohol Past Surgical History: Procedure Laterality Date CHOLECYSTECTOMY TUBAL LIGATION 2004 Family History Problem Relation Name Age of Onset No Known Problems Sister No Known Problems Son No Known Problems Maternal Grandmother No Known Problems Paternal Grandfather No Known Problems Brother No Known Problems Brother No Known Problems Brother Hyperlipidemia Father No Known Problems Mother No Known Problems Daughter No Known Problems Maternal Grandfather Cancer Father lung No Known Problems Sister High Blood Pressure Other No Known Problems Brother No Known Problems Paternal Grandmother No Known Problems Brother Diabetes Other No Known Problems Daughter No Known Problems Sister Objective BP 95/65 Pulse 64 Ht 5' 6 (1.676 m) Wt 179 lb (81.2 kg) SpO2 96% BMI 28.89 kg/m Physical Exam Vitals and nursing note reviewed. Constitutional: Appearance: Normal appearance. Cardiovascular: Rate and Rhythm: Normal rate and regular rhythm. Heart sounds: Normal heart sounds. Pulmonary: Effort: Pulmonary effort is normal. Breath sounds: Normal breath sounds. Lymphadenopathy: Cervical: Cervical adenopathy present. Neurological: Mental Status: She is alert. Psychiatric: Mood and Affect: Mood normal. Behavior: Behavior normal. Thought Content: Thought content normal. Judgment: Judgment normal. Data Reviewed and Summarized Labs: Imaging/Testing: Jennifer Rocha PA-C documented in this encounter [facility] 01-11-2024 Miscellaneous Notes Addended by: JENNIFER ROCHA on: 01/12/2024 11:20 AM Modules accepted: Level of Service documented in this encounter [facility] 01-11-2024 Note Addended by: JENNIFER ROCHA on: 01/12/2024 11:20 AM Modules accepted: Level of Service [facility] 01-11-2024 Note Addended by: JENNIFER ROCHA on: 01/12/2024 11:20 AM Modules accepted: Level of Service [facility] 12-08-2023 Telephone encounter Note Yes. No urgency. [facility] 12-08-2023 Miscellaneous Notes Yes. No urgency. Name of caller: October Contact phone number: [phone] Relationship to Patient: Patient Provider: Practice: [facility] Chief Complaint/Reason for Call: Patient called in regarding voicemail left. Patient stated she only can come in the afternoon, scheduled 12/15 with . Please advise. Best time of day caller can be reached: N/A Patient advised that office/PCP has 24-48 business hours to return their call: N/A Sent mychart message Left message on patient's voicemail asking her to call back and schedule an office visit. If patient calls, please schedule first available 20 OV. 20 fine. That's fine. Name of caller: Annita Contact phone number: [phone] Relationship to Patient: [facility] Provider: Dr. Thakkar Practice: [facility] Chief Complaint/Reason for Call: (pt was not on the line to triage) PT was seen downstairs at [facility] today and it was discovered that pt has palpable lymph nodes and was advised to be seen immediately. The office states they can fax any clinical documentation if need be. Please advise pt on next steps. Best time of day caller can be reached: any Patient advised that office/PCP has 24-48 business hours to return their call: Yes documented in this encounter [facility] 12-08-2023 Telephone encounter Note Name of caller: October Contact phone number: [phone] Relationship to Patient: Patient Provider: Practice: [facility] Chief Complaint/Reason for Call: Patient called in regarding voicemail left. Patient stated she only can come in the afternoon, scheduled 12/15 with . Please advise. Best time of day caller can be reached: N/A Patient advised that office/PCP has 24-48 business hours to return their call: N/A [facility] 12-08-2023 Telephone encounter Note Sent mychart message [facility] 12-08-2023 Telephone encounter Note Left message on patient's voicemail asking her to call back and schedule an office visit. If patient calls, please schedule first available 20 OV. [facility] 12-08-2023 Telephone encounter Note 20 fine. [facility] 12-07-2023 Telephone encounter Note That's fine. [facility] 12-07-2023 Telephone encounter Note Name of caller: Annita Contact phone number: [phone] Relationship to Patient: [facility] Provider: Dr. Thakkar Practice: [facility] Chief Complaint/Reason for Call: (pt was not on the line to triage) PT was seen downstairs at [facility] today and it was discovered that pt has palpable lymph nodes and was advised to be seen immediately. The office states they can fax any clinical documentation if need be. Please advise pt on next steps. Best time of day caller can be reached: any Patient advised that office/PCP has 24-48 business hours to return their call: Yes [facility] 11-12-2023 History of Present illness Narrative Images from the original note were not included. [facility] [address] [facility] [id number] Visit Type: New To Provider PCP: Roseline Thakkar DO Reason for Visit: New Patient (Rx refills, L side of neck Lymph node from liriano needing antibiotics. ) Assessment and Plan October was seen today for new patient. Diagnoses and all orders for this visit: Scalp lesion - Selenium Sulfide 2.25 % shampoo; 1 luther, Topical, Q3DAYS, # 180 mL, Refill(s) 0, Date: 09/17/23 6:46:00 PM EST - External referral to Dermatology; Future Essential (primary) hypertension - amLODIPine (Norvasc) 5 MG tablet; Take 1 tablet (5 mg) by mouth daily. - Comprehensive metabolic panel; Future - TSH; Future - CBC; Future - Comprehensive metabolic panel - TSH - CBC Pure hypercholesterolemia - Lipid panel; Future - Lipid panel Encounter for screening mammogram for malignant neoplasm of breast - Bilateral screening mammogram with tomosynthesis; Future Elevated serum glucose - Hemoglobin A1c; Future - Hemoglobin A1c Mild intermittent asthma without complication - montelukast (Singulair) 10 MG tablet; Take 1 tablet (10 mg) by mouth Nightly. Gastroesophageal reflux disease without esophagitis - famotidine (Pepcid) 40 MG tablet; Take 0.5 tablets (20 mg) by mouth 2 times daily. Rash - permethrin (Elimite) 5 % cream; THOROUGHLY MASSAGE INTO SKIN FROM HEAD TO SOLES OF FEET ONE time. LEAVE ON FOR 8-14 Hours and THEN REMOVE BY THOROUGH WASHING. Anemia, unspecified type - ferrous sulfate 325 (65 Fe) MG tablet; Take 1 tablet (325 mg) by mouth daily (with breakfast). Other orders - polyethylene glycol, PEG, 3350 (Miralax) 17 g packet; Dissolve seventeen (17) grams of powder in 8 ounce of water and drink once a day Due for screening labs. Return for pap smear. Mammo ordered. Will address her colon cancer screening options next visit. Refer to derm for definitive mgmt of her scalp lesion and hand lesions. Follow up for pap smear . Subjective HPI Presents for a new patient visit. She has the following past medical history: Bipolar disorder HTN Fibromyalgia Substance use Chronic Hep C - treated? Negative viral load in 2017 GERD Pap HIV neg 05/10/2020 Previously a pt of Dr. Rider. Last seen in our office 2021. She was getting substance abuse treatment at [place] [id number]. Currently living in a sober [facility]. Psych is through [facility]. She has the following concerns today: Seen by UC at [facility] for scalp lesions and lymph node inflammation. She was diagnosed with folliculitis and MRSA likely. Given oral antibiotics. And then given a special shampoo. She was also advised her hand lesions looked like scabies and she is worried she picked this up from one of the other individuals in the sober house. She was given the cream to treat scabies, but is unsure if others have same diagnosis or any treatment has been done to the home. Review of Systems Pertinent ROS noted in the HPI and all other systems are negative. Allergies Allergen Reactions Penicillamine Swelling Bumps everywhere Aspirin Codeine Swelling Doxycycline Rash Other reaction(s): Itching Ibuprofen Nausea Only Other reaction(s): GI Upset Latex Nausea Only, Nausea And Vomiting and Rash Other reaction(s): Unknown Lurasidone Hcl Naproxen Swelling Other reaction(s): Intolerance, Upset Stomach Facial swelling Penicillins Itching Other reaction(s): swelling, itching Any cillins per patient Any cillins per patient Prochlorperazine Unknown Sulfamethoxazole-Trimethoprim Hives Outpatient Medications Prior to Visit Medication Sig Dispense Refill CeleXA 40 MG tablet Take 40 mg by mouth daily. hydrOXYzine pamoate (Vistaril) 50 MG capsule Take 50 mg by mouth. naltrexone (Depade) 50 MG tablet Take 50 mg by mouth daily. topiramate (Topamax) 100 MG tablet Take 100 mg by mouth 2 times daily. amLODIPine (Norvasc) 5 MG tablet Take 1 tablet (5 mg) by mouth daily. 30 tablet 0 citalopram (CeleXA) 20 MG tablet Take 20 mg by mouth daily. cloNIDine (Catapres) 0.1 MG tablet Take 0.1 mg by mouth 2 times daily. famotidine (Pepcid) 40 MG tablet Take 0.5 tablets (20 mg) by mouth Nightly. 15 tablet 0 ferrous sulfate 325 (65 Fe) MG tablet Take 325 mg by mouth in the morning and 325 mg in the evening. montelukast (Singulair) 10 MG tablet Take 1 tablet (10 mg) by mouth Nightly. 30 tablet 0 permethrin (Elimite) 5 % cream THOROUGHLY MASSAGE INTO SKIN FROM HEAD TO SOLES OF FEET ONE time. LEAVE ON FOR 8-14 Hours and THEN REMOVE BY THOROUGH WASHING. polyethylene glycol, PEG, 3350 (Miralax) 17 g packet Dissolve seventeen (17) grams of powder in 8 ounce of water and drink once a day Selenium Sulfide 2.25 % shampoo 1 luther, Topical, Q3DAYS, # 180 mL, Refill(s) 0, Date: 09/17/23 6:46:00 PM EST No facility-administered medications prior to visit. Past Medical History: Diagnosis Date SEGUNDO (acute kidney injury) (HCC) 01/06/2016 Anxiety Asthma Bipolar disorder (HCC) Bipolar I disorder (HCC) 11/16/2019 control [facility] 10/10/14 BMI 33.0-33.9,adult Chronic back pain Degeneration of lumbar intervertebral disc Essential hypertension, benign Fibromyalgia GERD (gastroesophageal reflux disease) Hard of hearing has hearing aids Hepatitis C Labs 08/2017 and 12/2017 NO viral load; per ID, no follow up needed unless new exposures Hepatomegaly 04/20/2016 Heroin abuse (HCC) Osteomyelitis (HCC) thoracic- pseudomonas (December--@ [facility]) Posttraumatic stress disorder Pure hypercholesterolemia Pure hypercholesterolemia Thyroid cyst Trichimoniasis 04/2015 Social History Socioeconomic History Marital status: Single Tobacco Use Smoking status: Former Packs/day: .25 Types: Cigarettes Quit date: 11/06/2014 Years since quittin.0 Smokeless tobacco: Never Tobacco comments: Quit smoking: Vape/e-cigarettes Vaping Use Vaping Use: Every day Substances: Nicotine, Flavoring Devices: Disposable, Refillable tank, Pre-filled pod Substance and Sexual Activity Alcohol use: No Alcohol/week: 0.0 standard drinks of alcohol Drug use: Yes Types: Heroin, Oxycodone, Hydromorphone, Hydrocodone, Fentanyl Social Determinants of Health Financial Resource Strain: Medium Risk (11/12/2023) Overall Financial Resource Strain (CARDIA) Difficulty of Paying Living Expenses: Somewhat hard Food Insecurity: Food Insecurity Present (11/12/2023) Hunger Vital Sign Worried About Running Out of Food in the Last Year: Sometimes true Ran Out of Food in the Last Year: Sometimes true Transportation Needs: No Transportation Needs (11/12/2023) PRAPARE - Transportation Lack of Transportation (Medical): No Lack of Transportation (Non-Medical): No Physical Activity: Inactive (11/12/2023) Exercise Vital Sign Days of Exercise per Week: 0 days Minutes of Exercise per Session: 0 min Stress: Stress Concern Present (11/12/2023) [employer] - Occupational Stress Questionnaire Feeling of Stress : To some extent Social Connections: Moderately Integrated (11/12/2023) Social Connection and Isolation Panel [NHANES] Frequency of Communication with Friends and Family: More than three times a week Frequency of Social Gatherings with Friends and Family: Once a week Attends Restorationism Services: More than 4 times per year Active Member of Clubs or Organizations: Yes Attends Club or Organization Meetings: 1 to 4 times per year Marital Status: Never Intimate Partner Violence: Not At Risk (11/12/2023) Humiliation, Afraid, Rape, and Kick questionnaire Fear of Current or Ex-Partner: No Emotionally Abused: No Physically Abused: No Sexually Abused: No Housing Stability: High Risk (11/12/2023) Housing Stability Vital Sign Unable to Pay for Housing in the Last Year: Yes Number of Places Lived in the Last Year: 1 Unstable Housing in the Last Year: Yes Past Surgical History: Procedure Laterality Date CHOLECYSTECTOMY TUBAL LIGATION 2004 Family History Problem Relation Name Age of Onset No Known Problems Sister No Known Problems Son No Known Problems Maternal Grandmother No Known Problems Paternal Grandfather No Known Problems Brother No Known Problems Brother No Known Problems Brother Hyperlipidemia Father No Known Problems Mother No Known Problems Daughter No Known Problems Maternal Grandfather Cancer Father lung No Known Problems Sister High Blood Pressure Other No Known Problems Brother No Known Problems Paternal Grandmother No Known Problems Brother Diabetes Other No Known Problems Daughter No Known Problems Sister Objective BP 120/79 (BP Location: Right arm, Patient Position: Sitting, BP Cuff Size: Adult) Pulse 69 Ht 5' 6 (1.676 m) Wt 184 lb (83.5 kg) SpO2 96% BMI 29.70 kg/m Physical Exam Gen: no acute distress Head: small infected follicle of the posterior scalp, no surrounding erythema, but pustule noted Health Maintenance The following health maintenance schedule was reviewed with the patient and provided in printed form in the after visit summary: Health Maintenance Due Topic Date Due Lipid Panel Never done MMR Vaccines (1 of 1 - Standard series) Never done Pneumococcal Vaccine: Pediatrics (0 to 5 Years) and At-Risk Patients (6 to 64 Years) (1 of 2 - PCV) Never done Depression Monitoring Never done Hepatitis B Vaccines (1 of 3 - 19+ 3-dose series) Never done Hepatitis A Vaccines (1 of 2 - Risk 2-dose series) Never done DTaP/Tdap/Td Vaccines (1 - Tdap) 07/20/2012 Mammogram Never done Zoster Vaccines (1 of 2) Never done COVID-19 Vaccine ( - 2022- season) Never done Cervical Cancer Screening 05/10/2023 Screening needed: Colon cancer Colonoscopy Breast cancer Cervical cancer Vaccinations needed: Shingles I have reviewed and reconciled the medication list with the patient today. Medications Discontinued During This Encounter Medication Reason cloNIDine (Catapres) 0.1 MG tablet citalopram (CeleXA) 20 MG tablet amLODIPine (Norvasc) 5 MG tablet Reorder famotidine (Pepcid) 40 MG tablet Reorder montelukast (Singulair) 10 MG tablet Reorder ferrous sulfate 325 (65 Fe) MG tablet Reorder permethrin (Elimite) 5 % cream Reorder polyethylene glycol, PEG, 3350 (Miralax) 17 g packet Reorder Selenium Sulfide 2.25 % shampoo Reorder Roseline Thakkar DO 11/12/2023 12:29 PM There are no Patient Instructions on file for this visit. documented in this encounter [facility] 09-23-2023 Telephone encounter Note error [facility] 09-23-2023 Miscellaneous Notes error documented in this encounter [facility] 09-17-2023 Note ED Nursing Discharge Summary Entered On: 09/17/2023 19:06 EST Performed On: 09/17/2023 19:05 EST by Agustina Goodman RN DC Information [id number] ED IV's : No IV ED IV Site Assessment : No IV ED Vitals Completed : Yes ED Final Assessment Completed : Yes ED Progress Note Completed : Yes Complete all PRN/Pain response forms? : N/A ED Disassociate Patient from Monitor : Yes Updated Depart Time : Yes ED Belongings sent w patient [id number] : Not applicable Agustina Goodman RN - 09/17/2023 19:06 EST Education Instructions given to : Patient TeachBack Methodology : Explanation, Printed Material Barriers to Learning : None evident Agustina Goodman RN - 09/17/2023 19:06 EST ED Assistance Summary Assistance Given? : No Agustina Goodman RN - 09/17/2023 19:06 EST [facility] 09-16-2023 Telephone encounter Note S: RADHAMES Sheppard with [facility] spoke with [facility] nurse regarding neck lump. B: Onset of symptoms/concern today. A: [facility] Tender states that patient is at Urgent Care at this time. Valarie would like further advice on whether or not patient's PCP would like patient to follow up in office today or tomorrow or go to ED at this time for lumps on neck and lymphadenopathy. R: Spoke with back line office staff at this time. Per back line office staff, all of the providers have left for the day. RADHAMES Sheppard advised. Per RADHAMES Sheppard, I am just going to send the patient the the ER for a full work up then. No further needs at this time. Reason for Disposition Doctor (or UNDERWRITING MANAGER/PA) call to PCP Protocols used: PCP Call - No [id number] [facility] 09-16-2023 Miscellaneous Notes S: RADHAMES Sheppard with [facility] spoke with [facility] nurse regarding neck lump. B: Onset of symptoms/concern today. A: Claire Sheppard [facility] Con[facility]or Tender states that patient is at Urgent Care at this time. Valarie would like further advice on whether or not patient's PCP would like patient to follow up in office today or tomorrow or go to ED at this time for lumps on neck and lymphadenopathy. R: Spoke with back line office staff at this time. Per back line office staff, all of the providers have left for the day. RADHAMES Sheppard advised. Per RADHAMES Sheppard, I am just going to send the patient the the ER for a full work up then. No further needs at this time. Reason for Disposition Doctor (or UNDERWRITING MANAGER/PA) call to PCP Protocols used: PCP Call - No [id number] documented in this encounter [facility] 07-07-2023 Telephone encounter Note Patient has not been seen by you since 2019, has an appt 07/27/23. Dr. Duong sees and rx's topamax and tramadol. If you prefer not to rx until appt, we can call and let patient know. [facility] 07-07-2023 Miscellaneous Notes Patient has not been seen by you since 2019, has an appt 07/27/23. Dr. Duong sees and rx's topamax and tramadol. If you prefer not to rx until appt, we can call and let patient know. Patient states she is out of all medication Ordering provider: Date of last office visit: 04.24.22 Date of next office visit: 07.27.2023 Updated/Validated preferred pharmacy: Yes Patient instructed to contact the pharmacy prior to picking up the medication: Yes (1) Medication name: amLODIPine (Norvasc) 5 MG tablet Medication dosage: 5 mg (Miligrams Monthly quantity needed: 30 How many day supply requestin days Medication route: oral (PO) Medication administration time(s): daily If taking medication PRN, reason for taking medication: N/A If this is a controlled substance do you receive this or any other controlled medication from any other doctor or facility: N/A Date of last refill (see medication tab): 05.25.22 (2) Medication name: famotidine (Pepcid) 40 MG tablet Medication dosage: 40 mg (Miligrams Monthly quantity needed: 30 How many day supply requestin days Medication route: oral (PO) Medication administration time(s): TAKE 1 TABLET BY MOUTH EVERY EVENING If taking medication PRN, reason for taking medication: N/A If this is a controlled substance do you receive this or any other controlled medication from any other doctor or facility: N/A Date of last refill (see medication tab): 05.25.22 (3) Medication name: permethrin (Elimite) 5 % cream Medication dosage: 5% cream Monthly quantity needed: 60 g How many day supply requestin days Medication route: Apply to skin from hairline to toes and wash off 8-10 hours later Medication administration time(s): If taking medication PRN, reason for taking medication: N/A If this is a controlled substance do you receive this or any other controlled medication from any other doctor or facility: N/A Date of last refill (see medication tab): 06.05.22 (4) Medication name: montelukast (Singulair) 10 MG tablet Medication dosage: 10 mg (Miligrams Monthly quantity needed: 30 How many day supply requestin days Medication route: oral (PO) Medication administration time(s): TAKE 1 TABLET BY MOUTH NIGHTLY If taking medication PRN, reason for taking medication: N/A If this is a controlled substance do you receive this or any other controlled medication from any other doctor or facility: N/A Date of last refill (see medication tab): 09.16.22 (5) Medication name: topiramate (TOPAMAX) 50 mg tablet Medication dosage: 50 mg (Miligrams Monthly quantity needed: 90 How many day supply requestin days Medication route: oral (PO) Medication administration time(s): take 1 (ONE) & ONE-HALF tablets by mouth twice daily If taking medication PRN, reason for taking medication: N/A If this is a controlled substance do you receive this or any other controlled medication from any other doctor or facility: N/A Date of last refill (see medication tab): 12.16.21 documented in this encounter [facility] 07-07-2023 Telephone encounter Note Patient states she is out of all medication Ordering provider: Date of last office visit: 04.24.22 Date of next office visit: 07.27.2023 Updated/Validated preferred pharmacy: Yes Patient instructed to contact the pharmacy prior to picking up the medication: Yes (1) Medication name: amLODIPine (Norvasc) 5 MG tablet Medication dosage: 5 mg (Miligrams Monthly quantity needed: 30 How many day supply requestin days Medication route: oral (PO) Medication administration time(s): daily If taking medication PRN, reason for taking medication: N/A If this is a controlled substance do you receive this or any other controlled medication from any other doctor or facility: N/A Date of last refill (see medication tab): 05.25.22 (2) Medication name: famotidine (Pepcid) 40 MG tablet Medication dosage: 40 mg (Miligrams Monthly quantity needed: 30 How many day supply requestin days Medication route: oral (PO) Medication administration time(s): TAKE 1 TABLET BY MOUTH EVERY EVENING If taking medication PRN, reason for taking medication: N/A If this is a controlled substance do you receive this or any other controlled medication from any other doctor or facility: N/A Date of last refill (see medication tab): 05.25.22 (3) Medication name: permethrin (Elimite) 5 % cream Medication dosage: 5% cream Monthly quantity needed: 60 g How many day supply requestin days Medication route: Apply to skin from hairline to toes and wash off 8-10 hours later Medication administration time(s): If taking medication PRN, reason for taking medication: N/A If this is a controlled substance do you receive this or any other controlled medication from any other doctor or facility: N/A Date of last refill (see medication tab): 06.05.22 (4) Medication name: montelukast (Singulair) 10 MG tablet Medication dosage: 10 mg (Miligrams Monthly quantity needed: 30 How many day supply requestin days Medication route: oral (PO) Medication administration time(s): TAKE 1 TABLET BY MOUTH NIGHTLY If taking medication PRN, reason for taking medication: N/A If this is a controlled substance do you receive this or any other controlled medication from any other doctor or facility: N/A Date of last refill (see medication tab): 09.16.22 (5) Medication name: topiramate (TOPAMAX) 50 mg tablet Medication dosage: 50 mg (Miligrams Monthly quantity needed: 90 How many day supply requestin days Medication route: oral (PO) Medication administration time(s): take 1 (ONE) & ONE-HALF tablets by mouth twice daily If taking medication PRN, reason for taking medication: N/A If this is a controlled substance do you receive this or any other controlled medication from any other doctor or facility: N/A Date of last refill (see medication tab): 12.16.21 [facility] 06-25-2023 Note HNO ID: [id number] Author: Ashlee Iyer APRN.TERI Service: ? Author Type: Nurse Practitioner Type: Progress Notes Filed: 06/25/2023 5:27 PM Note Text: Subjective HPI October presents today with compliant that has bug bites on her right arm and left leg. She states she is staying in transitional housing and the sprayed for bed bugs today. She remains itchy. She has no other physical complaints She does have a mental healthy hx in which she states she has not had a MDD episode since Feb, she does not have hx of psychosis, and she does not have elated mood nor able to go without sleep. She is eating and drinking a is taking her Cymbalta, and is compliant. She states she is not using substances She is not Suicidal or homicidal and no self harm is noted No past medical history on file. No past surgical history on file. ALLERGIES Codeine, Latex, Latuda [Lurasidone], Penicillins, Sulfamethoxazole-Trimethoprim, Vancomycin, and Zoloft [Sertraline] MEDICATIONS escitalopram oxalate (LEXAPRO ORAL) Take by mouth. montelukast (SINGULAIR) 10 mg tablet famotidine (PEPCID) 40 mg tablet topiramate (TOPAMAX) 25 mg tablet FEROSUL 325 mg (65 mg iron) tablet amLODIPine (NORVASC) 5 mg tablet hydrOXYzine pamoate (VISTARIL) 50 mg capsule No family history on file. Social History Tobacco Use Smoking status: Every Day Types: Pipe Passive exposure: Current Smokeless tobacco: Never Review of Systems Skin: Positive for itching. All other systems reviewed and are negative. Objective Physical Exam Vitals and nursing note reviewed. Constitutional: General: She is not in acute distress. Appearance: Normal appearance. She is not ill-appearing or toxic-appearing. HENT: Head: Normocephalic and atraumatic. Right Ear: Tympanic membrane normal. Left Ear: Tympanic membrane normal. Nose: Nose normal. Mouth/Throat: Mouth: Mucous membranes are dry. Eyes: Extraocular Movements: Extraocular movements intact. Pupils: Pupils are equal, round, and reactive to light. Cardiovascular: Rate and Rhythm: Normal rate and regular rhythm. Pulses: Normal pulses. Heart sounds: Normal heart sounds. Pulmonary: Effort: Pulmonary effort is normal. No respiratory distress. Breath sounds: Normal breath sounds. Abdominal: Palpations: Abdomen is soft. Musculoskeletal: Cervical back: Normal range of motion and neck supple. No rigidity or tenderness. Skin: General: Skin is warm and dry. Findings: No rash (no rash noted on exam). Neurological: General: No focal deficit present. Mental Status: She is alert and oriented to person, place, and time. Psychiatric: Mood and Affect: Mood normal. Behavior: Behavior normal. Thought Content: Thought content normal. Judgment: Judgment normal. ASSESSMENT/PLAN: 1. Itching - ICD9: 698.9, ICD10: L29.9 Hydrocortisone cream Long discussion regarding mental health she is to report to ED if any mental health concerns arise Follow up if itching continues Ashlee Iyer APRN.TERI [facility] 06-25-2023 History of Present illness Narrative Subjective HPI October presents today with compliant that has bug bites on her right arm and left leg. She states she is staying in transitional housing and the sprayed for bed bugs today. She remains itchy. She has no other physical complaints She does have a mental healthy hx in which she states she has not had a MDD episode since Feb, she does not have hx of psychosis, and she does not have elated mood nor able to go without sleep. She is eating and drinking a is taking her Cymbalta, and is compliant. She states she is not using substances She is not Suicidal or homicidal and no self harm is noted No past medical history on file. No past surgical history on file. ALLERGIES Codeine, Latex, Latuda [Lurasidone], Penicillins, Sulfamethoxazole-Trimethoprim, Vancomycin, and Zoloft [Sertraline] MEDICATIONS escitalopram oxalate (LEXAPRO ORAL) Take by mouth. montelukast (SINGULAIR) 10 mg tablet famotidine (PEPCID) 40 mg tablet topiramate (TOPAMAX) 25 mg tablet FEROSUL 325 mg (65 mg iron) tablet amLODIPine (NORVASC) 5 mg tablet hydrOXYzine pamoate (VISTARIL) 50 mg capsule No family history on file. Social History Tobacco Use Smoking status: Every Day Types: Pipe Passive exposure: Current Smokeless tobacco: Never Review of Systems Skin: Positive for itching. All other systems reviewed and are negative. Objective Physical Exam Vitals and nursing note reviewed. Constitutional: General: She is not in acute distress. Appearance: Normal appearance. She is not ill-appearing or toxic-appearing. HENT: Head: Normocephalic and atraumatic. Right Ear: Tympanic membrane normal. Left Ear: Tympanic membrane normal. Nose: Nose normal. Mouth/Throat: Mouth: Mucous membranes are dry. Eyes: Extraocular Movements: Extraocular movements intact. Pupils: Pupils are equal, round, and reactive to light. Cardiovascular: Rate and Rhythm: Normal rate and regular rhythm. Pulses: Normal pulses. Heart sounds: Normal heart sounds. Pulmonary: Effort: Pulmonary effort is normal. No respiratory distress. Breath sounds: Normal breath sounds. Abdominal: Palpations: Abdomen is soft. Musculoskeletal: Cervical back: Normal range of motion and neck supple. No rigidity or tenderness. Skin: General: Skin is warm and dry. Findings: No rash (no rash noted on exam). Neurological: General: No focal deficit present. Mental Status: She is alert and oriented to person, place, and time. Psychiatric: Mood and Affect: Mood normal. Behavior: Behavior normal. Thought Content: Thought content normal. Judgment: Judgment normal. ASSESSMENT/PLAN: 1. Itching - ICD9: 698.9, ICD10: L29.9 Hydrocortisone cream Long discussion regarding mental health she is to report to ED if any mental health concerns arise Follow up if itching continues Ashlee Iyer APRN.APPLICATION SOFTWARE DEVELOPER documented in this encounter [facility] 05-12-2023 Note HNO ID: [id number] Author: Jen Gore APRN.APPLICATION SOFTWARE DEVELOPER Service: ? Author Type: Nurse Practitioner Type: Progress Notes Filed: 05/12/2023 4:17 PM Note Text: Subjective HPI HPI Kamla Hedrick is a 52 year old female who presents today for CC of cough, congestion, dx covid 2.5 weeks ago. This started 2.5 weeks ago. Has tried otc medication for relief. Symptoms are worsened by nothing. Risk factors hx of asthma. vapes. .Patient presents with: Cough: LACY, coughing up mucus, chest feels heavy x 2.5 weeks No past medical history on file. No past surgical history on file. ALLERGIES Codeine, Latex, Latuda [Lurasidone], Penicillins, Sulfamethoxazole-Trimethoprim, Vancomycin, and Zoloft [Sertraline] MEDICATIONS escitalopram oxalate (LEXAPRO ORAL) Take by mouth. montelukast (SINGULAIR) 10 mg tablet famotidine (PEPCID) 40 mg tablet topiramate (TOPAMAX) 25 mg tablet FEROSUL 325 mg (65 mg iron) tablet amLODIPine (NORVASC) 5 mg tablet hydrOXYzine pamoate (VISTARIL) 50 mg capsule No family history on file. Social History Tobacco Use Smoking status: Every Day Types: Pipe Passive exposure: Current Smokeless tobacco: Never Review of Systems Constitutional: Negative for fever. HENT: Positive for congestion. Negative for ear pain, nosebleeds, sinus pain and sore throat. Respiratory: Positive for cough. Negative for shortness of breath and wheezing. Musculoskeletal: Negative for neck pain. Neurological: Positive for headaches. Objective Blood pressure 90/74, pulse 74, temperature 36.3 ?C (97.4 ?F), resp. rate 21, weight 71.1 kg (156 lb 12.8 oz), SpO2 99 %. Physical Exam Constitutional: General: She is not in acute distress. Appearance: She is not toxic-appearing or diaphoretic. HENT: Head: Normocephalic and atraumatic. Cardiovascular: Rate and Rhythm: Normal rate and regular rhythm. Heart sounds: Normal heart sounds, S1 normal and S2 normal. Pulmonary: Effort: Pulmonary effort is normal. Breath sounds: Examination of the right-lower field reveals rales. Rales present. No decreased breath sounds, wheezing or rhonchi. Neurological: Mental Status: She is alert and oriented to person, place, and time. Gait: Gait is intact. ASSESSMENT/PLAN: 1. Acute cough - ICD9: 786.2, ICD10: R05.1 (primary diagnosis) Xray negative Post viral cough suspected Limit smoking advised -If you experience chest pain/shortness of breath go to ER - XR CHEST 2V FRONTAL/LAT - PREDNISONE 10 MG TABLET 2. History of asthma - ICD9: V12.69, ICD10: Z87.09 Start prednisone F/u with pcp if s/s persist - PREDNISONE 10 MG TABLET Jen Gore APRN.TERI [facility] 05-12-2023 Note HNO ID: [id number] Author: Radha Delacruz RT(R) Service: ? Author Type: Quality Nurse Type: Progress Notes Filed: 05/12/2023 4:06 PM Note Text: Radiology Service Progress Note PATIENT NAME: Kamla Hedrick DATE OF SERVICE: May 12, 2023 TIME: 3:57 PM PATIENT IDENTITY VERIFICATION COMPLETED USING TWO (2) IDENTIFIERS: Name and Date of confirmed by patient verbally. FALL SCREENING: Has the patient had 2 falls in the last year or 1 fall with injury or currently using an Ambulatory Assistive Device (Walker, Cane, Wheelchair, Crutches, etc.)? No PATIENT GENDER DATA: Female. status: : No status: NO. PATIENT RELEVANT IMPLANT DATA REVIEWED: Yes RADIOLOGY DEPARTMENT: General X-ray: Exam(s) Completed: Chest X-Ray PERIPHERAL IV DATA: Not applicable SIGNED BY: RT Roxane(R) May 12, 2023 3:57 PM [facility] 05-12-2023 History of Present illness Narrative Subjective HPI HPI October Ryley is a 52 year old female who presents today for CC of cough, congestion, dx covid 2.5 weeks ago. This started 2.5 weeks ago. Has tried otc medication for relief. Symptoms are worsened by nothing. Risk factors hx of asthma. vapes. .Patient presents with: Cough: LACY, coughing up mucus, chest feels heavy x 2.5 weeks No past medical history on file. No past surgical history on file. ALLERGIES Codeine, Latex, Latuda [Lurasidone], Penicillins, Sulfamethoxazole-Trimethoprim, Vancomycin, and Zoloft [Sertraline] MEDICATIONS escitalopram oxalate (LEXAPRO ORAL) Take by mouth. montelukast (SINGULAIR) 10 mg tablet famotidine (PEPCID) 40 mg tablet topiramate (TOPAMAX) 25 mg tablet FEROSUL 325 mg (65 mg iron) tablet amLODIPine (NORVASC) 5 mg tablet hydrOXYzine pamoate (VISTARIL) 50 mg capsule No family history on file. Social History Tobacco Use Smoking status: Every Day Types: Pipe Passive exposure: Current Smokeless tobacco: Never Review of Systems Constitutional: Negative for fever. HENT: Positive for congestion. Negative for ear pain, nosebleeds, sinus pain and sore throat. Respiratory: Positive for cough. Negative for shortness of breath and wheezing. Musculoskeletal: Negative for neck pain. Neurological: Positive for headaches. Objective Blood pressure 90/74, pulse 74, temperature 36.3 C (97.4 F), resp. rate 21, weight 71.1 kg (156 lb 12.8 oz), SpO2 99 %. Physical Exam Constitutional: General: She is not in acute distress. Appearance: She is not toxic-appearing or diaphoretic. HENT: Head: Normocephalic and atraumatic. Cardiovascular: Rate and Rhythm: Normal rate and regular rhythm. Heart sounds: Normal heart sounds, S1 normal and S2 normal. Pulmonary: Effort: Pulmonary effort is normal. Breath sounds: Examination of the right-lower field reveals rales. Rales present. No decreased breath sounds, wheezing or rhonchi. Neurological: Mental Status: She is alert and oriented to person, place, and time. Gait: Gait is intact. ASSESSMENT/PLAN: 1. Acute cough - ICD9: 786.2, ICD10: R05.1 (primary diagnosis) Xray negative Post viral cough suspected Limit smoking advised -If you experience chest pain/shortness of breath go to ER - XR CHEST 2V FRONTAL/LAT - PREDNISONE 10 MG TABLET 2. History of asthma - ICD9: V12.69, ICD10: Z87.09 Start prednisone F/u with pcp if s/s persist - PREDNISONE 10 MG TABLET Jen Gore APRN.APPLICATION SOFTWARE DEVELOPER documented in this encounter [facility] 03-03-2023 Note [facility] Medical Records Department [address] [place] [id number] Discharge Summary 03/03/23 1058 MR#: [id number] Acct: [id number] Name: RYLEYOctober Rep #: [id number] : 1970 52 From: Taylor Alarcon DO PCP: Dr. Shira Rider MD Status:ADM IN [id number] Prov[facility] Date of Admission: 03/01/23 Date of Discharge: 03/03/23 Primary Care Physician: Dr. Shira Rider MD Reason For Visit: OPIATE WITHDRAWL Diagnosis Discharge Diagnosis (1) Hypernatremia: Status: Acute Code(s): E87.0 - Hyperosmolality and hypernatremia (2) Opiate withdrawal: Status: Acute Code(s): F11.93 - Opioid use, unspecified with withdrawal (3) Hypokalemia: Status: Acute Code(s): E87.6 - Hypokalemia Medications at Discharge Home Medications citalopram 40 mg tablet 60 mg PO DAILY ANXIETY/DEPRESSION 08/18/19 hydroxyzine pamoate 50 mg capsule 50 mg PO DAILY ANXIETY 03/05/19 ranitidine HCl 150 mg tablet 150 mg PO DAILY PRN MIGRAINE 03/05/19 ferrous sulfate 325 mg (65 mg iron) tablet 325 mg PO BID ANEMIA 03/11/19 topiramate 25 mg tablet 50 mg PO BID PRN PRN Headache 03/11/19 famotidine 40 mg tablet 40 mg PO QHS ACID REFLUX 03/01/23 montelukast 10 mg tablet 10 mg PO QHS ALLERGIES 03/01/23 Hospital Course Operations None Procedures None Summary of Care Provided Minutes Spent on Discharge: 22 Hospital Course: Ms. Hedrick is a 52-year-old white female with a history of opiate abuse who presented to the emergency department at [facility] on 03/01/2023 for acute opiate withdrawal. 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 She was recently incarcerated for about 2 weeks in January at which time she experienced withdrawal symptoms, but unfortunately after release she started using again. Most recently she was utilizing intranasal Percocet and cocaine and she had been doing this at least on a daily basis typically multiple times a day. Last use was at 10 PM on the day prior to admission. Withdrawal symptoms present on admission were restlessness and mild agitation. She denied any abdominal pain, cramping, body aches, rhinorrhea or piloerection upon presentation. She is interested in sobriety and work-up upon presentation was unremarkable other than a positive urine toxicology screen for MDMA and cocaine. Her test was unremarkable. Hepatitis and HIV were obtained. Hepatitis C antibody was reactive, hepatitis B antibody was reactive, HIV was nonreactive. Patient reports she has been treated for hepatitis C previously. She was admitted and placed on a Subutex taper. Supportive medications were utilized for symptom management. She was seen by addiction medicine and plan for discharge to inpatient rehab facility on 03/03/2023 was set up. Patient had an overall uncomplicated detox and was able to be discharged in stable condition on 03/03/2023. Discharge diagnoses: Acute opiate withdrawal-resolved Polysubstance abuse Hypokalemia-resolved Hypernatremia/hyperchloremia-resol cedric History of hepatitis C infection status posttreatment Hypertension History of anemia secondary to iron deficiency GERD Allergic rhinitis Anxiety Depression Bipolar disorder Physical Exam Const alert, oriented x3, no apparent distress, average body habitus and well nourished Constitutional Narrative: Middle-aged, -[place] female, sitting up in bed watching television, appears comfortable nontoxic General Appearance: cooperative, comfortable, well kempt and well developed Orientation / Consciousness: awake, oriented to person, oriented to place and oriented to time HEENT normocephalic, head/scalp atraumatic and moist oral mucous membranes Resp normal respiratory effort, no retractions, no use of accessory muscles and clear to auscultation bilaterally Auscultation: Negative for rales, rhonchi or wheezes Cardio regular rate, regular rhythm, S1 normal heart sound, S2 normal heart sound, no murmurs, no rub, no gallops and no clicks GI normal to inspection, nondistended, normoactive bowel sounds, soft to palpation and non-tender Extremity no clubbing, cyanosis or edema Extremity Narrative: Pedal pulses are 2+ Neuro oriented x3, moves all extremities and no focal motor deficits Speech: speech normal Psych affect normal Psych Narrative: Eye contact is good, patient interacts appropriately Weight / BMI Weight Weight: 67.1 kg Body Mass Index (BMI) 23.8 ABG / Lab / Microbiology Data 03/01/23 01:12 03/02/23 06:27 Laboratory: Laboratory Results - last 24 hr 03/01/23 01:12: Miscellaneous Test D/C Instructions Discharge Diet: No restrictions Discharge Activity: Return to Normal Activity Meaning (more content not included)... [facility] 03-02-2023 Progress note Note Date/Time March 02, 2023 12:43pm [facility] Medical Records Department [address] [place] [address] Progress Note - Hospitalist 03/02/23 1240 MR#: [id number] Acct: [id number] Name: RYLEYOctober Rep #:[id number] : 1970 52 From: Taylor Alarcon DO PCP: Dr. Shira Rider MD Status:ADM IN Location: [place] [address] Reason for Visit Reason for Visit: Opiate detox Subjective Subjective Patient complaining of lower extremity cramping and pain. Has not yet tried gabapentin so we will try one 600 mg dose. Denies any nausea vomiting or diarrhea. Is aware the plan is for discharge tomorrow to inpatient at [facility] and she states she feels that she will be ready. Objective Data Objective Data Vital Signs: Vital Signs Temp Pulse Resp BP Pulse Ox O2 Del Method 98.1 F 70 16 126/81 H 99 Room Air 03/02/23 07:59 03/02/23 07:59 03/02/23 07:59 03/02/23 07:59 03/02/23 07:59 03/02/23 08:00 Oxygen Delivery Method Room Air Weight: 67.1 kg Body Mass Index (BMI) 23.8 Intake & Output: Intake and Output for Last 24 Hours 02/28/23 03/01/23 03/02/23 23:59 23:59 23:59 Intake Total 959.58 / 959.58 1000 / 1000 Output Total 0 / 0 Balance 959.58 / 959.58 1000 / 1000 Lab / Micro Data 03/01/23 01:12 03/02/23 06:27 Labs: Laboratory Results - last 24 hr 03/02/23 06:27: Sodium 143, Potassium 4.0, Chloride 117 H, Carbon Dioxide 22.0, Anion Gap 4 L, BUN 7, Creatinine 0.76, Estim Creat Clear Calc 82.90, Est GFR (MDRD) Af Amer 104, Est GFR (MDRD) Non-Af 86, BUN/Creatinine Ratio 9.2 L, Glucose 106, Calcium 8.1 L Physical Exam Const alert, oriented x3, no apparent distress, average body habitus and well nourished Constitutional Narrative: Middle-aged, -[place] female, sitting up in bed watching television, appears comfortable nontoxic HEENT head/scalp atraumatic and moist oral mucous membranes Head and Scalp: normocephalic Extremity no clubbing, cyanosis or edema Extremity Narrative: Pedal pulses are 2+ Psych affect normal Psych Narrative: Eye contact is good, patient interacts appropriately Assessment & Plan Assessment/Plan (1) Hypernatremia: (2) Opiate withdrawal: (3) Hypokalemia: PLAN: Plan Acute opiate withdrawal -Continue Subutex per COWS protocol -Continue as needed medication for symptom management -Immune against hepatitis B -Hepatitis C antibody is positive -HIV is nonreactive -[facility] has evaluated the patient and plan is for discharge to [facility] inpatient rehab on 03/03/2023 Hypokalemia -Resolved Hypernatremia/hyperchloremia -Resolved Hepatitis C infection -Hepatitis C antibody is positive -We will check hepatitis C viral load to ascertain whether or not she is clearedinfection or is a chronic carrier -She would be a candidate for treatment if she can obtain sobriety and maintain this Hyperglycemia -Fasting blood sugar this morning is 114 -A1c is 5.3 therefore patient is not diabetic -No history of diabetes Hypertension -Patient with documented history of hypertension and on amlodipine -Amlodipine held on admission and blood pressures remained stable however do appear to be creeping up some we will continue to monitor and add back amlodipine if required at discharge -Continue to monitor and restart if needed -Blood pressures may have been elevated previously due to cocaine however she was cocaine positive this time as well History of anemia secondary to iron deficiency -Hemoglobin on presentation was 11.2 -Continue home iron GERD -Continue home famotidine Allergic rhinitis -Continue home Singulair Anxiety/depression/bipolar disorder -Patient is not currently on any medications for her bipolar disorder -Continue citalopram DVT prophylaxis -Low risk -Encourage early and frequent ambulation Charges/Coding Visit Charges Inpatient E&M: 83419 Subs Hosp L1 03/02/23 1243 <Electronically signed by Taylor Alarcon DO> Cosigner Signature (if applicable): CC: ~ Signed [facility] Work Phone: 1(550) 265-396108-14-2023 Progress note Author Taylor Alarcon [facility] March 01, 2023 8:19am Note Date/Time March 01, 2023 8: 04am [facility] Medical Records Department [address] [place] [id number] Progress Note - Hospitalist 03/01/23 0759 MR#: [id number] Acct: [id number] Name: RYLEY Rep #:[id number] : 1970 52 From: Taylor Alarcon DO PCP: Dr. Shira Rider MD Status:ADM IN Location: [place] [address] Reason for Visit Reason for Visit: Acute opiate withdrawal Subjective Subjective Ms. Hedrick is a 52-year-old white female with a history of opiate abuse who presented to the emergency department at [facility] on 03/01/2023 andacute opiate withdrawal. She is a previous heroin addict who was admitted for detox in 2018 and was sober until September of this past year when she started usingPercocets and cocaine multiple times a day. She was recently incarcerated for about 2 weeks in January at which time she experienced withdrawal symptoms but unfortunately after release she started using again. Most recently she was utilizing intranasal Percocet and cocaine and she is doing this at least on a daily basis typically multiple times a day. Last use was at 10 PM on the day prior to admission. Withdrawal symptoms present on admission were restlessness and mild agitation. She denied any abdominal pain, cramping, body aches, rhinorrhea or piloerection upon presentation. She is interested in sobriety andwork-up upon presentation was unremarkable other than a positive urine toxicology screen for MDMA and cocaine. Her test was unremarkable. Hepatitis and HIV were obtained. Hepatitis C antibody was reactive, hepatitis Bantibody was reactive, HIV was nonreactive. Objective Data Objective Data Vital Signs: Vital Signs Temp Pulse Resp BP Pulse Ox O2 Del Method 97.5 F L 80 18 116/75 98 Room Air 03/01/23 07:00 03/01/23 07:00 03/01/23 07:00 03/01/23 07:00 03/01/23 07:00 03/01/23 07:00 Oxygen Delivery Method Room Air Weight: 67.1 kg Body Mass Index (BMI) 23.8 Lab / Micro Data 03/01/23 01:12 03/01/23 06:06 Labs: Laboratory Results - last 24 hr 03/01/23 01:02: Urine Opiates Screen NEGATIVE, Urine Methadone Screen NEGATIVE, Ur Barbiturates Screen NEGATIVE, Ur Phencyclidine Scrn NEGATIVE, Ur AmphetaminesScreen NEGATIVE, MDMA (Ecstasy) Screen POSITIVE H, U Benzodiazepines Scrn NEGATIVE, Urine Cocaine Screen POSITIVE H, U Cannabinoids Screen NEGATIVE, Ur Drug Screen Comment 03/01/23 01:12: WBC 6.4, RBC 3.91 L, Hgb 11.2 L, Hct 35.1 L, MCV 89.8, MCH 28.6,MCHC 31.9 L, RDW Std Deviation 43.7, RDW Coeff of Caroline 13.4, Plt Count 321, MPV 9.2, Immature Gran % (Auto) 0.300, Neut % (Auto) 54.0, Lymph % (Auto) 32.7, [place]% (Auto) 7.2, Eos % (Auto) 4.9, Baso % (Auto) 0.9, Absolute Neuts (auto) 3.5, Absolute Lymphs (auto) 2.09, Nucleated RBC % 0, Sodium 145, Potassium 3.2 L, Chloride 110 H, Carbon Dioxide 31.0, Anion Gap 4 L, BUN 11, Creatinine 0.93, Estim Creat Clear Calc 65.12, Est GFR (MDRD) Af Amer 82, Est GFR (MDRD) Non-Af 67, BUN/Creatinine Ratio 11.8, Glucose 155 H, Calcium 9.0, Magnesium 1.7, Total Bilirubin 0.70, Direct Bilirubin 0.18, AST 17, ALT 23, Alkaline Phosphatase 79, Total Protein 7.2, Albumin 3.5, Globulin 3.7, Serum , Qual NEGATIVE, Ethyl Alcohol < 3.0, Syphilis Total Ab Non-reactive, Hep Bs Antigen Non-Reactive, Hep Bs Antibody Reactive, Hepatitis C Antibody REACTIVE, HIV 1&2 Antibody Non-Reactive 03/01/23 06:06: Sodium 147 H, Potassium 3.0 L, Chloride 113 H, Carbon Dioxide 27.0, Anion Gap 7, BUN 10, Creatinine 0.74, Estim Creat Clear Calc 85.14, Est GFR (MDRD) Af Amer 107, Est GFR (MDRD) Non-Af 88, BUN/Creatinine Ratio 13.5, Glucose 114 H, Calcium 8.1 L, Total Bilirubin 0.50, AST 16, ALT 20, Alkaline Phosphatase 70, Total Protein 6.1 L, Albumin 2.9 L, Globulin 3.2, Albumin/Globulin Ratio 0.9 Assessment & Plan Assessment/Plan (1) Opiate withdrawal: (2) Hypokalemia: (3) Hypernatremia: PLAN: Plan Acute opiate withdrawal -Continue Subutex per COWS protocol -Continue as needed medication for symptom management -Immune against hepatitis B -Hepatitis C antibody is positive -HIV is nonreactive -180 consultation Hypokalemia -Potassium remains low at 3.0 this morning -60 mill colons p.o. potassium -Repeat BMP in a.m. -Mag level was within normal limits at 1.7 Hypernatremia/hyperchloremia -We will give 1 L of half-normal saline -Repeat BMP in a.m. Hepatitis C infection -Hepatitis C antibody is positive -We will check hepatitis C viral load to ascertain whether or not she is clearedinfection or is a chronic carrier -She would be a candidate for treatment if she can obtain sobriety and maintain this Hyperglycemia -Fasting blood sugar this morning is 114 -Hemoglobin A1c is pending -No history of diabetes Hypertension -Patient with documented history of hypertension and on amlodipine -Amlodipine held on admission and blood pressures are to be stable -Continue to monitor and restart if needed -Blood pressures may have been elevated previously due to cocaine however she was cocaine positive this time as well History of anemia secondary to iron deficiency -Hemoglobin on presentation was 11.2 -Continue home iron GERD -Continue home famotidine Allergic rhinitis -Restart home Singulair Anxiety/depression/bipolar disorder -Patient is not currently on any medications for her bipolar disorder -Continue citalopram DVT prophylaxis -Low risk -Encourage early and frequent ambulation 03/01/23 0819 <Electronically signed by Taylor Alarcon DO> Cosigner Signature (if applicable): CC: ~ Signed [facility] Work Phone: 1(122) 783-686508-14-2023 History and physical note Author Kristen Caraballo [facility] March 01, 2023 2:35am Note Date/Time March 01, 2023 1: 48am [facility] Medical Records Department [address] [place] [id number] H&P Exam - Hospitalist 03/01/23 0145 MR#: [id number] Acct: [id number] Name: RYLEY Rep #:[id number] : 1970 52 From: Kristen Caraballo MD PCP: Dr. Shira Rider MD Status:ADM IN Location: [place] [address] HPI - General General Date of Admission: 03/01/23 Date of Service: 03/01/23 Chief Complaint: Acute Opiate withdrawal HPI Narrative The patient is a 52 y/o F w/ PMHx: Allergic rhinitis, HTN, Anxiety and Depression/Bipolar disorder, GERD, Overweight, Polysubstance abuse (Percocet/Opiates/Cocaine, Prior IVDA w/ heroin) who presents to the [facility] ED on 8/14/23 with noted acute opiate withdrawal onset starting just prior to presentation following last dose at approximately 10 PM on day prior to presentation with primarily at this point mild agitation and restlessness but nomarked abdominal pain/cramping, body aches, rhinorrhea presenting for detoxification. Patient interested in attaining clean status. Patient is a previous heroin user and was admitted for detox in 2017 unfortunately relapsing this September utilizing both Percocets and cocaine multiple times a day until she was incarcerated for approximately half a month in January with withdrawal symptomsat that time however unfortunately she started using again. Work-up in the ED included T98, heart rate 77, BP 129/89, respiratory rate 18, 97% room air, CBC with WBC 6.4, hemoglobin 11.2, MCV 89.8, platelet 321 without marked shift, BMP with potassium 3.2, glucose 155 otherwise not marked appearing, serum negative, UDS positive for MDMA and cocaine, ethyl alcohol level <3. [facility] Medical History (Updated 03/01/23 @ 01:[address] Kristen Caraballo MD) Allergic rhinitis Anxiety and depression Bipolar disorder Chronic anemia GERD (gastroesophageal reflux disease) Iron deficiency anemia IV drug abuse Overweight Polysubstance abuse Home Medications citalopram 40 mg tablet 60 mg PO DAILY 03/05/19 [History Last Taken 03/11/19] hydroxyzine pamoate 50 mg capsule 50 mg PO DAILY 03/05/19 [History Last Taken 03/11/19] ondansetron 4 mg disintegrating tablet 4 mg PO Q8H PRN PRN Nausea #10 tabs 03/05/19 [Rx Last Taken 03/11/19] quetiapine 100 mg tablet 100 mg PO QHS 03/05/19 [History Last Taken 03/10/19] ranitidine HCl 150 mg tablet 150 mg PO DAILY 03/05/19 [History Last Taken 03/11/19] amlodipine 5 mg tablet 5 mg PO DAILY 03/11/19 [History Last Taken 03/11/19] ferrous sulfate 325 mg (65 mg iron) tablet 325 mg PO BID 03/11/19 [History Last Taken 03/11/19] topiramate 25 mg tablet 50 mg PO BID PRN PRN Headache 03/11/19 [History Last Taken Unknown] Allergy/AdvReac Type Severity Reaction Status Date / Time codeine Allergy Itching Verified 03/11/19 16:29 doxycycline Allergy Itching Verified 03/11/19 16:29 latex Allergy Rash Verified 03/11/19 16:29 Penicillins [cillins] Allergy Swelling Verified 06/28/22 14:55 sulfamethoxazole Allergy Rash Verified 03/11/19 16:29 [From Bactrim] trimethoprim [From Bactrim] Allergy Rash Verified 03/11/19 16:29 naproxen AdvReac Upset Verified 03/11/19 16:29 Stomach NSAIDS (Non-Steroidal AdvReac Upset Verified 03/11/19 16:29 Anti-Inflamma Stomach Family History (Updated 03/01/23 @ 02:[address] Kristen Caraballo MD) Mother Diabetes Hypertension Rheumatoid arthritis Father Diabetes Cancer Hypertension Surgical History (Updated 03/01/23 @ 02:[address] Kristen Caraballo MD) History of tubal ligation Hx of cholecystectomy Social History (Updated 03/01/23 @ 02:[address] Kristen Caraballo MD) household members: other details: Her 18 year old daughter lives with her. Smoking Status: Never smoker alcohol intake: never substance use type: crack/cocaine, heroin, opiates and IV drugs ROS ROS Narrative Admission Review of Systems: CONSTITUTIONAL: No weight loss, fever, chills, + weakness or fatigue. HEENT: Eyes: No visual loss, blurred vision, double vision or yellow sclerae. Ears, Nose, Throat: No hearing loss, sneezing, congestion, runny nose or sore throat. SKIN: + Hx canine bit prior to recent incarceration. CARDIOVASCULAR: No chest pain, chest pressure or chest discomfort, palpitations,edema, orthopnea, syncopal events. RESPIRATORY: No shortness of breath, cough or sputum, wheezing, hemoptysis. GASTROINTESTINAL:+ anorexia. No nausea, vomiting or diarrhea, abdominal pain, melena, BRBPR. GENITOURINARY: No dysuria, frequency, urgency or retention. NEUROLOGICAL: + Restlessness. No headache, dizziness, syncope, paralysis, ataxia, numbness or tingling in the extremities, focal weakness, change in bowelor bladder control, seizure. MUSCULOSKELETAL: + muscle, back pain, joint pain or stiffness. HEMATOLOGIC: No anemia, bleeding or bruising. LYMPHATICS: No enlarged nodes. No history of splenectomy. PSYCHIATRIC: + history of depression or anxiety. ENDOCRINOLOGIC: No reports of sweating, cold or heat intolerance. No polyuria orpolydipsia. ALLERGIES: + history of rhinitis. Vital Signs Vital Signs Vital Signs: 03/01/23 00:55 Temperature 98 F Temperature Source Temporal Pulse Rate 77 Respiratory Rate 18 Blood Pressure 129/89 H Blood Pressure Mean 102 Pulse Ox 97 Oxygen Delivery Method Room Air Weight Weight: 167 lb 15.876 oz Body Mass Index (BMI) 27.9 Physical Exam Narrative Physical Examination: General: Awake, alert, oriented x 3 and cooperative, seated upright in the ED bed in no apparent distress, very restless, moving around the room constantly. Skin: Normal color, normal turgor, no icterus, no cyanosis except for various abrasions, picked region. HEENT: AT/NC, EOMI, PERRLA, mildly dry MM, no carotid bruits or JVD noted. Lungs: Diminished, > bases, appropriate effort, no rales, ronchi or wheezing. Heart: Regular rate and rhythm; no gallop, rub audible. Abdomen: Soft, overweight, NTTP, ND, mildly hyperative BS, no HSM. Extremities: No cyanosis, clubbing, or edema. Neurological: Patient awake, alert, oriented as noted, cognitive function intact; pupils equally reactive to light and accommodation, cranial nerves grosslynormal, moving all 4 extremities, no focal deficits, strength mildly globally decreased secondary to acute presentation, restless. Psychiatric: Affect appears restless, mildly agitated, no acute evidence of depressive or anxiety feelings but does have underlying history. Results Lab / Micro Data 03/01/23 01:12 03/01/23 01:12 Labs: Laboratory Results - last 24 hr 03/01/23 01:02: Urine Opiates Screen NEGATIVE, Urine Methadone Screen NEGATIVE, Ur Barbiturates Screen NEGATIVE, Ur Phencyclidine Scrn NEGATIVE, Ur AmphetaminesScreen NEGATIVE, MDMA (Ecstasy) Screen POSITIVE H, U Benzodiazepines Scrn NEGATIVE, Urine Cocaine Screen POSITIVE H, U Cannabinoids Screen NEGATIVE, Ur Drug Screen Comment 03/01/23 01:12: WBC 6.4, RBC 3.91 L, Hgb 11.2 L, Hct 35.1 L, MCV 89.8, MCH 28.6,MCHC 31.9 L, RDW Std Deviation 43.7, RDW Coeff of Caroline 13.4, Plt Count 321, MPV 9.2, Immature Gran % (Auto) 0.300, Neut % (Auto) 54.0, Lymph % (Auto) 32.7, [place]% (Auto) 7.2, Eos % (Auto) 4.9, Baso % (Auto) 0.9, Absolute Neuts (auto) 3.5, Absolute Lymphs (auto) 2.09, Nucleated RBC % 0, Sodium 145, Potassium 3.2 L, Chloride 110 H, Carbon Dioxide 31.0, Anion Gap 4 L, BUN 11, Creatinine 0.93, Estim Creat Clear Calc 65.12, Est GFR (MDRD) Af Amer 82, Est GFR (MDRD) Non-Af 67, BUN/Creatinine Ratio 11.8, Glucose 155 H, Calcium 9.0, Serum , QualNEGATIVE, Ethyl Alcohol < 3.0 Assessment & Plan Assessment/Plan (1) Opiate withdrawal: PLAN: Plan The patient is a 52 y/o F w/ PMHx: Allergic rhinitis, HTN, Anxiety and Depression/Bipolar disorder, GERD, Overweight, Polysubstance abuse (Percocet/Opiates/Cocaine, Prior IVDA w/ heroin) who presents to the [facility] ED on 03/01/23 with noted acute opiate withdrawal onset starting just prior to presentation following last dose at approximately 10 PM on day prior to presentation with primarily at this point mild agitation and restlessness. #1. Acute Opiate Withdrawal: Will admit to [facility], routine labs including CBC, BMP,urine for drug screen, EtOH initiated per ED physician, will add hepatic panel. Will initiate and continue on protocol with tapering course of Subutex, as needed tylenol, ibuprofen, bowel regimen, gabapentin, Bentyl, Vistaril, methocarbamol, clonidine, PRN nightly trazodone for insomnia, IV fluids, IV antiemetics. Once patient clinically improved and completion of taper nearing will plan consultation with case management for transition to next level of rehabilitation care. #2. Polysubstance Abuse with history of prior IV drug abuse: Given abuse history of IVDA to be cautious will request HIV, hepatitis panel as well as RPR given prominent in the community to be cautious. patient currently not candidatefor hep C treatment currently as needs to be clean, sober x 6 months, documentedattendance NA or AA meetings, counseling and ongoing negative drug screens. Onceappropriate GI, ID to initiate. HIV, hepatitis panel to assess for co-infection pending. Encouraged PCP establishment and follow-up. #3. Hypokalemia: Admission K+ 3.2, magnesium level requested, supplementation given, repeat level in AM. #4. Hyperglycemia: Admission glucose 155, no diabetic history, to be cautious we will obtain hemoglobin A1c and if consistent with diabetes will request nutrition consultation for education and teaching and transition to ADA diet with Accu- Cheks with insulin sliding scale #5. Hypertension: From recent medications noted patient was started on norvasc,BP currently normal range and she states she is not taking, potentially related with cocaine usage, will hold regimen restart and monitor BP with re-addition ifappropriate. #6. Chronic anemia/Fe deficiency: Admission CBC with hemoglobin 11.2, MCV 89.8,most recent labs noted 03/11/19 with Hgb 13.4 at that time, prior medication listnoting Fe supplementation BID, no longer taking. #7. Anxiety and Depression/Bipolar disorder: Patient previously per records hadbeen on Seroquel, hydroxyzine as well as citalopram, reports no longer taking, unfortunately likely contributing to her opiate abuse as well as cocaine use, will encourage aggressive outpatient follow-up and medications for appropriate #8. GERD: Will cotninue home famotidine regimen, PRN mylanta regimen. #9. Allergic rhinitis: From records patient Rx 10/24/22 singulair, given her psychiatric history to be cautious with its black box warning will d/c this medication and recommend claritin or allergra as an initial agent instead. #10. Overweight: Weight loss and lifestyle changes encouraged. #11. DVT prophylaxis: Low risk for current presentation. Charges/Coding Visit Charges Inpatient E&M: 67645 Init Hosp L3 03/01/23 0235 <Electronically signed by Kristen Caraballo MD> Cosigner Signature (if applicable): CC: Dr. Kristen Caraballo MD; Dr. Shira Rider MD~ Signed [facility] Work Phone: [phone]) 944-591108-14-2023 Discharge summary Author Fabio Rae [facility] March 01, 2023 2:21am Note Date/Time March 01, 2023 1: 23am [facility] Medical Records Department [address] [facility] [place] [address] Emergency Department Summary 03/01/23 MR#: [id number] Acct: [id number] Name: KAMLA HEDRICK Rep #:[id number] : 1970 52 From: Fabio Lieberman PCP: Dr. Shira Rider MD Status:ADM IN Location: [place] [address] HPI History of Present Illness Chief Complaint: Substance Abuse Informant: patient Narrative Narrative: Presents here requesting detox. Reports previous heroin user went to [facility] in 2017. Patient relapsed this past September using Percocet 30s and cocaine. She reports she did take half a tab Percocet she requested Percocet and snorted with cocaine. She does this on a daily basis sometimes multiple times a day. Last use 10 PM. She was incarcerated for 15 days in January had withdrawal symptoms then when she got she started using again. Denies any current nausea or vomiting. History of bipolar anxiety depression states she stopped taking her medications when she started using the drugs. She denies anysuicidal or homicidal ideations. Denies alcohol use. She was reporting when she was in nursing home had polysubstance findings from her toxicology screen including methadone MDMA and benzos which she states she did not use those. She had meth stating she tried it before nursing home did not like it. Medically discussion she states she has concerns for leg swelling. No trouble urinating. She states shewas attacked by pit bull in January before going to nursing home. Denies any fevers. Prior similar symptoms: [facility] Medical History (Updated 03/01/23 @ 01:[address] Kristen Caraballo MD) Allergic rhinitis Anxiety and depression Bipolar disorder Chronic anemia GERD (gastroesophageal reflux disease) Iron deficiency anemia IV drug abuse Overweight Polysubstance abuse Home Medications citalopram 40 mg tablet 60 mg PO DAILY 03/05/19 [History Last Taken 03/11/19] hydroxyzine pamoate 50 mg capsule 50 mg PO DAILY 03/05/19 [History Last Taken 03/11/19] ondansetron 4 mg disintegrating tablet 4 mg PO Q8H PRN PRN Nausea #10 tabs 03/05/19 [Rx Last Taken 03/11/19] quetiapine 100 mg tablet 100 mg PO QHS 03/05/19 [History Last Taken 03/10/19] ranitidine HCl 150 mg tablet 150 mg PO DAILY 03/05/19 [History Last Taken 03/11/19] amlodipine 5 mg tablet 5 mg PO DAILY 03/11/19 [History Last Taken 03/11/19] ferrous sulfate 325 mg (65 mg iron) tablet 325 mg PO BID 03/11/19 [History Last Taken 03/11/19] topiramate 25 mg tablet 50 mg PO BID PRN PRN Headache 03/11/19 [History Last Taken Unknown] Allergy/AdvReac Type Severity Reaction Status Date / Time codeine Allergy Itching Verified 03/11/19 16:29 doxycycline Allergy Itching Verified 03/11/19 16:29 latex Allergy Rash Verified 03/11/19 16:29 Penicillins [cillins] Allergy Swelling Verified 06/28/22 14:55 sulfamethoxazole Allergy Rash Verified 03/11/19 16:29 [From Bactrim] trimethoprim [From Bactrim] Allergy Rash Verified 03/11/19 16:29 naproxen AdvReac Upset Verified 03/11/19 16:29 Stomach NSAIDS (Non-Steroidal AdvReac Upset Verified 03/11/19 16:29 Anti-Inflamma Stomach Social History Smoking Status: Never smoker ROS ROS ED Constitutional Constitutional ED: Denies chills, fever(s) or sweats Eyes Eyes: Denies change in vision ENT ENT ED: Denies dysphagia or sore throat Cardiovascular Cardiovascular: Reports leg edema; Denies chest pain, palpitations or racing heartbeat Respiratory/Chest Respiratory/Chest: Denies cough, dyspnea or dyspnea on exertion Gastrointestinal Gastrointestinal: Denies abdominal pain, diarrhea, nausea or vomiting Genitourinary Genitourinary ED: Denies dysuria, hematuria or urinary frequency Musculoskeletal Musculoskeletal: Denies back pain, extremity pain or neck pain Integumentary Denies rash or wounds Neurologic Neurologic: Denies headache(s), paresthesias or weakness Psychiatric Psychiatric: Denies suicidal ideation or suicidal thoughts EXAM Physical Exam Const Vital Signs: 03/01/23 00:55 Temperature 98 F Temperature Source Temporal Pulse Rate 77 Respiratory Rate 18 Blood Pressure 129/89 H Blood Pressure Mean 102 Pulse Ox 97 Oxygen Delivery Method Room Air Positive well nourished and well developed Constitutional Narrative: Nontoxic, General Appearance ED: well developed and NAD HEENT Reports moist mucous membranes normocephalic and atraumatic Eyes PERRL, EOMs intact bilaterally and conjunctivae normal General Eye ED: Yes normal appearance of both eyes Neck no lymphadenopathy and supple General: Negative for tenderness Chest Wall Chest: Negative for tenderness Resp normal respiratory effort and normal air movement Effort and Inspection: symmetric chest movement; Negative for respiratory distress Cardio regular rate, regular rhythm and no murmurs Peripheral Pulses: pulses 2+ throughout GI normal to inspection, nondistended, normoactive bowel sounds and non-tender Palpation: Negative for guarding or rebound tenderness present Back/Spine no CVA tenderness and no thoracic nor lumbar tenderness Extremity normal to inspection General Extremety ED: Negative for edema or tenderness General Extremity: Negative for edema Neuro oriented x3 and no sensory deficits noted Sensorium / Orientation: awake and alert Psych Psych Narrative: Denies suicidal homicidal ideations. Skin no wounds Skin Narrative: Lower extremities scattered areas abrasions and healing scabs. No indurations no drainage no erythema. MDM MDM MDM Narrative Medical decision making narrative: Interventions / MDM: Differential diagnosis: Polysubstance abuse Diagnosis considered but do not suspect: No suicidal homicidal ideations. My EKG interpretation: N/A Imaging independently reviewed and interpreted by myself: N/A External documents reviewed: N/A Test considered but not ordered:N/A ED course: Vital signs stable, nontoxic. No current withdrawal symptoms. Medical screening labs ordered. 0135: Patient concerns of leg swelling pain. Lab normal creatinine 0.93. Potassium 3.2 however chronically low from her previous labs. She is not on a diuretic. Oral replacement skin. Toxicology screen ecstasy and cocaine. No opiates or methadone, however she reports she uses Percocet 30s. Will speak with hospitalist for admission to assist with detoxification. Discussed with Dr. Caraballo for admission. Re-evaluation: stable Disposition discussed with patient/family/significant other: Case discussed with consulting clinician: Hospitalist This note was generated with Page[employer] dictation software. It may contain incorrectwords, spelling, and punctuation that were not noted in checking the note beforesigning. Lab Data Attestation: I reviewed the patient's lab results. Labs: Laboratory Results - last 24 hr 03/01/23 03/01/23 01:02 01:12 WBC 6.4 RBC 3.91 L Hgb 11.2 L Hct 35.1 L MCV 89.8 MCH 28.6 MCHC 31.9 L RDW Std Deviation 43.7 RDW Coeff of Caroline 13.4 Plt Count 321 MPV 9.2 Immature Gran % (Auto) 0.300 Neut % (Auto) 54.0 Lymph % (Auto) 32.7 [place] % (Auto) 7.2 Eos % (Auto) 4.9 Baso % (Auto) 0.9 Absolute Neuts (auto) 3.5 Absolute Lymphs (auto) 2.09 Nucleated RBC % 0 Sodium 145 Potassium 3.2 L Chloride 110 H Carbon Dioxide 31.0 Anion Gap 4 L BUN 11 Creatinine 0.93 Estim Creat Clear Calc 65.12 Est GFR (MDRD) Af Amer 82 Est GFR (MDRD) Non-Af 67 BUN/Creatinine Ratio 11.8 Glucose 155 H Calcium 9.0 Magnesium 1.7 Total Bilirubin 0.70 Direct Bilirubin 0.18 AST 17 ALT 23 Alkaline Phosphatase 79 Total Protein 7.2 Albumin 3.5 Globulin 3.7 Serum , Qual NEGATIVE Urine Opiates Screen NEGATIVE Urine Methadone Screen NEGATIVE Ur Barbiturates Screen NEGATIVE Ur Phencyclidine Scrn NEGATIVE Ur Amphetamines Screen NEGATIVE MDMA (Ecstasy) Screen POSITIVE H U Benzodiazepines Scrn NEGATIVE Urine Cocaine Screen POSITIVE H U Cannabinoids Screen NEGATIVE Ur Drug Screen Comment Ethyl Alcohol < 3.0 Discharge Plan Dx/Rx/DC Orders Clinical Impression: Polysubstance dependence, History of bipolar disorder, Noncompliance with medication regimen, Hypokalemia Disposition Disposition: Acute Care Hospital [facility] What to do if you have Problems For any increased pain, shortness of breath, bleeding, nausea or vomiting, chestpain, or any unexpected problems, contact your Primary Care Provider. Call [facility] ([phone]) or report to the closest Emergency Room. Call 911 if necessary. 03/01/23220 <Electronically signed by Fabio Lieberman> Cosigner Signature (if applicable): CC: Dr. Shira Rider MD ~ Signed [facility] Work Phone: [phone] 972-290301-06-2023 Telephone encounter Note* Telephone Encounter - Kalee Patel RN - 07/24/2022 4:43 PM EST S: Patient spoke with [facility] nurse regarding bugs are leaving imprints all over her body B: Onset of symptoms/concern 4 months A: Pt endorses patient states has been in hair. Pt states I have 3 different paracyist in my house, they drain me, the in me, they sting me, they leave there imprints any food terms into white bug. I'm drained by them. Pt anxious - and speaking in partial sentences. Pt focusing conversation on bugs, sounds agitated. Pt endorses currently off her medication has not taken in over three days. R: Pt advised to go to Urgent Care at this time. Pt advised to take her prescribed medication as directed. Pt to call Psychiatrist today. Pt scheduled same day appointment on 07/27/[address] Rider.P verbalizes understanding, states I will go take my medication now, and [facility] Patient understands care advice. No further needs at this time. Patient instructed to call back with new or worsening symptoms. Reason for Disposition [1] Bipolar disorder (manic depression) AND [2] worsening (e.g., thinking less clearly, more agitated, less able to do activities of daily living) Protocols used: Bipolar Disorder (Manic Depression)-ADULT- [id number] Miscellaneous Notes* Telephone Encounter - Kalee Patel RN - 07/24/2022 4:43 PM EST S: Patient spoke with [facility] nurse regarding bugs are leaving imprints all over her body B: Onset of symptoms/concern 4 months A: Pt endorses patient states has been in hair. Pt states I have 3 different paracyist in my house, they drain me, the in me, they sting me, they leave there imprints any food terms into white bug. I'm drained by them. Pt anxious - and speaking in partial sentences. Pt focusing conversation on bugs, sounds agitated. Pt endorses currently off her medication has not taken in over three days. R: Pt advised to go to Urgent Care at this time. Pt advised to take her prescribed medication as directed. Pt to call Psychiatrist today. Pt scheduled same day appointment on 07/27/[address] Rider.P verbalizes understanding, states I will go take my medication now, and find an Urgent care to goto.. Patient understands care advice. No further needs at this time. Patient instructed to call back with new or worsening symptoms. Reason for Disposition [1] Bipolar disorder (manic depression) AND [2] worsening (e.g., thinking less clearly, more agitated, less able to do activities of daily living) Protocols used: Bipolar Disorder (Manic Depression)-ADULT- documented in this [facility]01-05-2023 Telephone encounter Note* Telephone Encounter - Marva Dye RN - 07/23/2022 8:26 PM EST S: [facility] regarding head lice. B: Per nurse triage ticket created by [facility] A: Patient disconnected prior to speaking with nurse. No answer upon return call to patient. R: Attempted to return call to pt two times. Left voice message for patient to call the office if assistance is still needed. Reason for Disposition Second attempt to contact caller AND no contact made. Phone number verified. Protocols used: No Contact or Duplicate Contact [id number] [id number] Miscellaneous Notes* Telephone Encounter - Marva Dye RN - 07/23/2022 8:26 PM EST S: [facility] regarding head lice. B: Per nurse triage ticket created by [facility] A: Patient disconnected prior to speaking with nurse. No answer upon return call to patient. R: Attempted to return call to pt two times. Left voice message for patient to call the office if assistance is still needed. Reason for Disposition Second attempt to contact caller AND no contact made. Phone number verified. Protocols used: No Contact or Duplicate Contact [id number] documented in this encounterSumma HealthDischarge summary Author Fabio Mcbride [facility] March 01, 2023 2:21am Note Date/Time March 01, 2023 1: 23am [facility] Medical Records Department [address] [place] [address] Emergency Department Summary 03/01/23 MR#: [id number] Acct: [id number] Name: RYLEYOctober Rep #:[id number] : 1970 52 From: Fabio Lieberman PCP: Dr. Shira Rider MD Status:ADM IN Location: [place] [address] HPI History of Present Illness Chief Complaint: Substance Abuse Informant: patient Narrative Narrative: Presents here requesting detox. Reports previous heroin user went to [facility] in 2017. Patient relapsed this past September using Percocet 30s and cocaine. She reports she did take half a tab Percocet she requested Percocet and snorted with cocaine. She does this on a daily basis sometimes multiple times a day. Last use 10 PM. She was incarcerated for 15 days in January had withdrawal symptoms then when she got she started using again. Denies any current nausea or vomiting. History of bipolar anxiety depression states she stopped taking her medications when she started using the drugs. She denies anysuicidal or homicidal ideations. Denies alcohol use. She was reporting when she was in nursing home had polysubstance findings from her toxicology screen including methadone MDMA and benzos which she states she did not use those. She had meth stating she tried it before nursing home did not like it. Medically discussion she states she has concerns for leg swelling. No trouble urinating. She states shewas attacked by pit bull in January before going to nursing home. Denies any fevers. Prior similar symptoms: Yes [facility] Medical History (Updated 03/01/23 @ 01:[address] Kristen Caraballo MD) Allergic rhinitis Anxiety and depression Bipolar disorder Chronic anemia GERD (gastroesophageal reflux disease) Iron deficiency anemia IV drug abuse Overweight Polysubstance abuse Home Medications citalopram 40 mg tablet 60 mg PO DAILY 03/05/19 [History Last Taken 03/11/19] hydroxyzine pamoate 50 mg capsule 50 mg PO DAILY 03/05/19 [History Last Taken 03/11/19] ondansetron 4 mg disintegrating tablet 4 mg PO Q8H PRN PRN Nausea #10 tabs 03/05/19 [Rx Last Taken 03/11/19] quetiapine 100 mg tablet 100 mg PO QHS 03/05/19 [History Last Taken 03/10/19] ranitidine HCl 150 mg tablet 150 mg PO DAILY 03/05/19 [History Last Taken 03/11/19] amlodipine 5 mg tablet 5 mg PO DAILY 03/11/19 [History Last Taken 03/11/19] ferrous sulfate 325 mg (65 mg iron) tablet 325 mg PO BID 03/11/19 [History Last Taken 03/11/19] topiramate 25 mg tablet 50 mg PO BID PRN PRN Headache 03/11/19 [History Last Taken Unknown] Allergy/AdvReac Type Severity Reaction Status Date / Time codeine Allergy Itching Verified 03/11/19 16:29 doxycycline Allergy Itching Verified 03/11/19 16:29 latex Allergy Rash Verified 03/11/19 16:29 Penicillins [cillins] Allergy Swelling Verified 06/28/22 14:55 sulfamethoxazole Allergy Rash Verified 03/11/19 16:29 [From Bactrim] trimethoprim [From Bactrim] Allergy Rash Verified 03/11/19 16:29 naproxen AdvReac Upset Verified 03/11/19 16:29 Stomach NSAIDS (Non-Steroidal AdvReac Upset Verified 03/11/19 16:29 Anti-Inflamma Stomach Social History Smoking Status: Never smoker ROS ROS ED Constitutional Constitutional ED: Denies chills, fever(s) or sweats Eyes Eyes: Denies change in vision ENT ENT ED: Denies dysphagia or sore throat Cardiovascular Cardiovascular: Reports leg edema; Denies chest pain, palpitations or racing heartbeat Respiratory/Chest Respiratory/Chest: Denies cough, dyspnea or dyspnea on exertion Gastrointestinal Gastrointestinal: Denies abdominal pain, diarrhea, nausea or vomiting Genitourinary Genitourinary ED: Denies dysuria, hematuria or urinary frequency Musculoskeletal Musculoskeletal: Denies back pain, extremity pain or neck pain Integumentary Denies rash or wounds Neurologic Neurologic: Denies headache(s), paresthesias or weakness Psychiatric Psychiatric: Denies suicidal ideation or suicidal thoughts EXAM Physical Exam Const Vital Signs: 03/01/23 00:55 Temperature 98 F Temperature Source Temporal Pulse Rate 77 Respiratory Rate 18 Blood Pressure 129/89 H Blood Pressure Mean 102 Pulse Ox 97 Oxygen Delivery Method Room Air Positive well nourished and well developed Constitutional Narrative: Nontoxic, General Appearance ED: well developed and NAD HEENT Reports moist mucous membranes normocephalic and atraumatic Eyes PERRL, EOMs intact bilaterally and conjunctivae normal General Eye ED: Yes normal appearance of both eyes Neck no lymphadenopathy and supple General: Negative for tenderness Chest Wall Chest: Negative for tenderness Resp normal respiratory effort and normal air movement Effort and Inspection: symmetric chest movement; Negative for respiratory distress Cardio regular rate, regular rhythm and no murmurs Peripheral Pulses: pulses 2+ throughout GI normal to inspection, nondistended, normoactive bowel sounds and non-tender Palpation: Negative for guarding or rebound tenderness present Back/Spine no CVA tenderness and no thoracic nor lumbar tenderness Extremity normal to inspection General Extremety ED: Negative for edema or tenderness General Extremity: Negative for edema Neuro oriented x3 and no sensory deficits noted Sensorium / Orientation: awake and alert Psych Psych Narrative: Denies suicidal homicidal ideations. Skin no wounds Skin Narrative: Lower extremities scattered areas abrasions and healing scabs. No indurations no drainage no erythema. MDM MDM MDM Narrative Medical decision making narrative: Interventions / MDM: Differential diagnosis: Polysubstance abuse Diagnosis considered but do not suspect: No suicidal homicidal ideations. My EKG interpretation: N/A Imaging independently reviewed and interpreted by myself: N/A External documents reviewed: N/A Test considered but not ordered:N/A ED course: Vital signs stable, nontoxic. No current withdrawal symptoms. Medical screening labs ordered. 0135: Patient concerns of leg swelling pain. Lab normal creatinine 0.93. Potassium 3.2 however chronically low from her previous labs. She is not on a diuretic. Oral replacement skin. Toxicology screen ecstasy and cocaine. No opiates or methadone, however she reports she uses Percocet 30s. Will speak with hospitalist for admission to assist with detoxification. Discussed with Dr. Caraballo for admission. Re-evaluation: stable Disposition discussed with patient/family/significant other: Case discussed with consulting clinician: Hospitalist This note was generated with [employer] software. It may contain incorrectwords, spelling, and punctuation that were not noted in checking the note beforesigning. Lab Data Attestation: I reviewed the patient's lab results. Labs: Laboratory Results - last 24 hr 03/01/23 03/01/23 01:02 01:12 WBC 6.4 RBC 3.91 L Hgb 11.2 L Hct 35.1 L MCV 89.8 MCH 28.6 MCHC 31.9 L RDW Std Deviation 43.7 RDW Coeff of Caroline 13.4 Plt Count 321 MPV 9.2 Immature Gran % (Auto) 0.300 Neut % (Auto) 54.0 Lymph % (Auto) 32.7 [place] % (Auto) 7.2 Eos % (Auto) 4.9 Baso % (Auto) 0.9 Absolute Neuts (auto) 3.5 Absolute Lymphs (auto) 2.09 Nucleated RBC % 0 Sodium 145 Potassium 3.2 L Chloride 110 H Carbon Dioxide 31.0 Anion Gap 4 L BUN 11 Creatinine 0.93 Estim Creat Clear Calc 65.12 Est GFR (MDRD) Af Amer 82 Est GFR (MDRD) Non-Af 67 BUN/Creatinine Ratio 11.8 Glucose 155 H Calcium 9.0 Magnesium 1.7 Total Bilirubin 0.70 Direct Bilirubin 0.18 AST 17 ALT 23 Alkaline Phosphatase 79 Total Protein 7.2 Albumin 3.5 Globulin 3.7 Serum , Qual NEGATIVE Urine Opiates Screen NEGATIVE Urine Methadone Screen NEGATIVE Ur Barbiturates Screen NEGATIVE Ur Phencyclidine Scrn NEGATIVE Ur Amphetamines Screen NEGATIVE MDMA (Ecstasy) Screen POSITIVE H U Benzodiazepines Scrn NEGATIVE Urine Cocaine Screen POSITIVE H U Cannabinoids Screen NEGATIVE Ur Drug Screen Comment Ethyl Alcohol < 3.0 Discharge Plan Dx/Rx/DC Orders Clinical Impression: Polysubstance dependence, History of bipolar disorder, Noncompliance with medication regimen, Hypokalemia Disposition Disposition: Acute Care Hospital [facility] What to do if you have Problems For any increased pain, shortness of breath, bleeding, nausea or vomiting, chestpain, or any unexpected problems, contact your Primary Care Provider. Call [facility] ([phone]) or report to the closest Emergency Room. Call 911 if necessary. 03/01/23220 <Electronically signed by Fabio Lieberman> Cosigner Signature (if applicable): CC: Dr. Shira Rider MD ~ Signed [facility] Work Phone: Discharge summary Author Taylor Alarcon [facility] March 03, 2023 11:06am Note Date/Time March 03, 2023 10 :59am [facility] Medical Records Department [address] [place] [address] Discharge Summary 03/03/23 1058 MR#: [id number] Acct: [id number] Name: RYLEYOctober Rep #:[id number] : 1970 52 From: Taylor Alarcon DO PCP: Dr. Shira Rider MD Status:ADM IN Location: [place] [address] Providers Date of Admission: 03/01/23 Date of Discharge: 03/03/23 Primary Care Physician: Dr. Shira Rider MD Reason For Visit: OPIATE WITHDRAWL Diagnosis Discharge Diagnosis (1) Hypernatremia: Status: Acute Code(s): E87.0 - Hyperosmolality and hypernatremia (2) Opiate withdrawal: Status: Acute Code(s): F11.93 - Opioid use, unspecified with withdrawal (3) Hypokalemia: Status: Acute Code(s): E87.6 - Hypokalemia Medications at Discharge Home Medications citalopram 40 mg tablet 60 mg PO DAILY ANXIETY/DEPRESSION 03/05/19 hydroxyzine pamoate 50 mg capsule 50 mg PO DAILY ANXIETY 03/05/19 ranitidine HCl 150 mg tablet 150 mg PO DAILY PRN MIGRAINE 03/05/19 ferrous sulfate 325 mg (65 mg iron) tablet 325 mg PO BID ANEMIA 03/11/19 topiramate 25 mg tablet 50 mg PO BID PRN PRN Headache 03/11/19 famotidine 40 mg tablet 40 mg PO QHS ACID REFLUX 03/01/23 montelukast 10 mg tablet 10 mg PO QHS ALLERGIES 03/01/23 Hospital Course Operations None Procedures None Summary of Care Provided Minutes Spent on Discharge: 22 Hospital Course: Ms. Hedrick is a 52-year-old white female with a history of opiate abuse who presented to the emergency department at [facility] on 03/01/2023for acute opiate withdrawal. She is a previous heroin addict who was admitted for detox in 2018 and was sober until September of this past year when she started using Percocets and cocaine multiple times a day. She was recently incarceratedfor about 2 weeks in January at which time she experienced withdrawal symptoms, butunfortunately after release she started using again. Most recently she was utilizing intranasal Percocet and cocaine and she had been doing this at least on a daily basis typically multiple times a day. Last use was at 10 PM on the day prior to admission. Withdrawal symptoms present on admission were restlessness and mild agitation. She denied any abdominal pain, cramping, body aches, rhinorrhea or piloerection upon presentation. She is interested in sobriety and work-up upon presentation was unremarkable other than a positive urine toxicology screen for MDMA and cocaine. Her test was unremarkable. Hepatitis and HIV were obtained. Hepatitis C antibody was reactive, hepatitis B antibody was reactive, HIV was nonreactive. Patient reports she has been treated for hepatitis C previously. She was admitted and placed on a Subutex taper. Supportive medications were utilized for symptom management. She was seen by addiction medicine and plan for discharge to inpatient rehab facility on 03/03/2023 was set up. Patient had an overall uncomplicated detox and was able to be discharged in stable condition on 03/03/2023. Discharge diagnoses: Acute opiate withdrawal-resolved Polysubstance abuse Hypokalemia-resolved Hypernatremia/hyperchloremia-resolved History of hepatitis C infection status posttreatment Hypertension History of anemia secondary to iron deficiency GERD Allergic rhinitis Anxiety Depression Bipolar disorder Physical Exam Const alert, oriented x3, no apparent distress, average body habitus and well nourished Constitutional Narrative: Middle-aged, -[place] female, sitting up in bed watching television, appears comfortable nontoxic General Appearance: cooperative, comfortable, well kempt and well developed Orientation / Consciousness: awake, oriented to person, oriented to place and oriented to time HEENT normocephalic, head/scalp atraumatic and moist oral mucous membranes Resp normal respiratory effort, no retractions, no use of accessory muscles and clearto auscultation bilaterally Auscultation: Negative for rales, rhonchi or wheezes Cardio regular rate, regular rhythm, S1 normal heart sound, S2 normal heart sound, no murmurs, no rub, no gallops and no clicks GI normal to inspection, nondistended, normoactive bowel sounds, soft to palpation and non-tender Extremity no clubbing, cyanosis or edema Extremity Narrative: Pedal pulses are 2+ Neuro oriented x3, moves all extremities and no focal motor deficits Speech: speech normal Psych affect normal Psych Narrative: Eye contact is good, patient interacts appropriately Weight / BMI Weight Weight: 67.1 kg Body Mass Index (BMI) 23.8 ABG / Lab / Microbiology Data 03/01/23 01:12 03/02/23 06:27 Laboratory: Laboratory Results - last 24 hr 03/01/23 01:12: Miscellaneous Test D/C Instructions Discharge Diet: No restrictions Discharge Activity: Return to Normal Activity Meaningful Use Info Meaningful Use Diagnoses (Choose all that apply): None applicable Discharge Plan Admission Admit Date/Time: 03/01/23 01:47 Primary Reason for Your Visit: Opiate detox Attending Provider: Taylor Alarcon Primary Care Provider: Shira Rider Consulting Providers: Kristen Caraballo Discharge Orders/Prescriptions Prescriptions: Continued citalopram 40 MG tablet 60 mg PO DAILY hydroxyzine pamoate 50 MG capsule 50 mg PO DAILY ranitidine HCl 150 MG tablet 150 mg PO DAILY PRN (Reason: MIGRAINE) topiramate 25 MG tablet 50 mg PO BID PRN PRN (Reason: Headache) Patient Comments: TAKE 1 TABLET once EVERY NIGHT FOR 1 WEEK then TAKE 1 TABLET TWICE DAILY FOR 1 WEEK then start 50 MG TABLETS ferrous sulfate 325 MG tablet 325 mg PO BID Patient Comments: TAKE 1 TABLET TWICE DAILY famotidine 40 mg tablet 40 mg PO QHS Patient Comments: TAKE 1 TABLET BY MOUTH EVERY EVENING montelukast 10 mg tablet 10 mg PO QHS Patient Comments: TAKE 1 TABLET BY MOUTH EVERY NIGHT Discontinued amlodipine 5 MG tablet 5 mg PO DAILY Referrals / Follow Up: Shira Rider MD [Primary Care Provider] - Within 1 Month [facility] Doctor,Out of [Non-Staff] - Disposition Disposition (needs filled in before D/C Order can be placed): Inpatient Rehab Unit/Facility Charges/Coding Visit Charges Inpatient E&M: 69493 Disch Hosp 03/03/23 1106 <Electronically signed by Taylor Alarcon DO> Cosigner Signature (if applicable): CC: Dr. Shira Rider MD; Dr. Taylor Alarcon DO~ Signed [facility] Work Phone: Evaluation note* Diagnosis Onset Date Resolution Status History of bipolar disorder acute Hypokalemia acute Noncompliance with medication regimen acute Opiate withdrawal acute Polysubstance dependence acu [facility] Work Phone: Evaluation note* Diagnosis Onset Date Resolution Status History of bipolar disorder acute Hypernatremia acute Hypokalemia acute Noncompliance with medication regimen acute Opiate withdrawal acute Polysubstance dependence acu [facility] Work Phone: Evaluation note* Diagnosis Acute cough- Primary History of asthma Personal history of other diseases of respiratory system [facility] Diagnosis Itching- Primary Unspecified pruritic disorder [facility] Diagnosis Essential (primary) hypertension Unspecified essential hypertension documented in this encounter [facility]* Diagnosis Scalp lesion- Primary Unspecified disorder of skin and subcutaneous tissue Essential (primary) hypertension Unspecified essential hypertension Pure hypercholesterolemia Encounter for screening mammogram for malignant neoplasm of breast Elevated serum glucose Mild intermittent asthma without complication Gastroesophageal reflux disease without esophagitis Esophageal reflux Rash Rash and other nonspecific skin eruption Anemia, unspecified type documented in this encounter [facility]* Diagnosis Lymphadenopathy, cervical- Primary documented in this encounter [facility]* Diagnosis Lymphadenopathy, cervical- Primary documented in this encounter [facility]* Diagnosis Bipolar I disorder (HCC)- Primary Bipolar I disorder, most recent episode (or current) unspecified Rash Rash and other nonspecific skin eruption Dysuria Gastroesophageal reflux disease without esophagitis Esophageal reflux documented in this encounter [facility]* Diagnosis Essential (primary) hypertension Unspecified essential hypertension documented in this encounter [facility]* Diagnosis Seborrheic dermatitis of scalp Other seborrheic dermatitis documented in this encounter [facility]* Diagnosis Seborrheic dermatitis of scalp Other seborrheic dermatitis documented in this encounter [facility]* Diagnosis Acute bilateral knee pain- Primary Family history of rheumatoid arthritis Family history of arthritis Varicose veins of both lower extremities with pain documented in this encounter [facility]* Diagnosis Acute bilateral knee pain- Primary Family history of rheumatoid arthritis Family history of arthritis Varicose veins of both lower extremities with pain Anemia, unspecified type documented [facility] this [facility] Author [facility]en [facility] March 01, 2023 2:35am Note Date/Time March 01, 2023 1: 48am [facility] Medical Records Department [address] [place] [address] H&P Exam - Hospitalist 03/01/23 0145 MR#: [id number] Acct: [id number] Name: RYLEYOctober Rep #:[id number] : 1970 52 From: Kristen Caraballo MD PCP: Dr. Shira Rider MD Status:ADM IN Location: [facility] [id number] HPI - General General Date of Admission: 03/01/23 Date of Service: 03/01/23 Chief Complaint: Acute Opiate withdrawal HPI Narrative The patient is a 52 y/o F w/ PMHx: Allergic rhinitis, HTN, Anxiety and Depression/Bipolar disorder, GERD, Overweight, Polysubstance abuse (Percocet/Opiates/Cocaine, Prior IVDA w/ heroin) who presents to the [facility] ED on 03/01/23 with noted acute opiate withdrawal onset starting just prior to presentation following last dose at approximately 10 PM on day prior to presentation with primarily at this point mild agitation and restlessness but nomarked abdominal pain/cramping, body aches, rhinorrhea presenting for detoxification. Patient interested in attaining clean status. Patient is a previous heroin user and was admitted for detox in 2017 unfortunately relapsing this September utilizing both Percocets and cocaine multiple times a day until she was incarcerated for approximately half a month in January with withdrawal symptomsat that time however unfortunately she started using again. Work-up in the ED included T98, heart rate 77, BP 129/89, respiratory rate 18, 97% room air, CBC with WBC 6.4, hemoglobin 11.2, MCV 89.8, platelet 321 without marked shift, BMP with potassium 3.2, glucose 155 otherwise not marked appearing, serum negative, UDS positive for MDMA and cocaine, ethyl alcohol level <3. [facility] Medical History (Updated 03/01/23 @ 01:[address] Kristen Caraballo MD) Allergic rhinitis Anxiety and depression Bipolar disorder Chronic anemia GERD (gastroesophageal reflux disease) Iron deficiency anemia IV drug abuse Overweight Polysubstance abuse Home Medications citalopram 40 mg tablet 60 mg PO DAILY 03/05/19 [History Last Taken 03/11/19] hydroxyzine pamoate 50 mg capsule 50 mg PO DAILY 03/05/19 [History Last Taken 03/11/19] ondansetron 4 mg disintegrating tablet 4 mg PO Q8H PRN PRN Nausea #10 tabs 03/05/19 [Rx Last Taken 03/11/19] quetiapine 100 mg tablet 100 mg PO QHS 03/05/19 [History Last Taken 03/10/19] ranitidine HCl 150 mg tablet 150 mg PO DAILY 03/05/19 [History Last Taken 03/11/19] amlodipine 5 mg tablet 5 mg PO DAILY 03/11/19 [History Last Taken 03/11/19] ferrous sulfate 325 mg (65 mg iron) tablet 325 mg PO BID 03/11/19 [History Last Taken 03/11/19] topiramate 25 mg tablet 50 mg PO BID PRN PRN Headache 03/11/19 [History Last Taken Unknown] Allergy/AdvReac Type Severity Reaction Status Date / Time codeine Allergy Itching Verified 03/11/19 16:29 doxycycline Allergy Itching Verified 03/11/19 16:29 latex Allergy Rash Verified 03/11/19 16:29 Penicillins [cillins] Allergy Swelling Verified 06/28/22 14:55 sulfamethoxazole Allergy Rash Verified 03/11/19 16:29 [From Bactrim] trimethoprim [From Bactrim] Allergy Rash Verified 03/11/19 16:29 naproxen AdvReac Upset Verified 03/11/19 16:29 Stomach NSAIDS (Non-Steroidal AdvReac Upset Verified 03/11/19 16:29 Anti-Inflamma Stomach Family History (Updated 03/01/23 @ 02:[address] Kristen Caraballo MD) Mother Diabetes Hypertension Rheumatoid arthritis Father Diabetes Cancer Hypertension Surgical History (Updated 03/01/23 @ 02:[address] Kristen Caraballo MD) History of tubal ligation Hx of cholecystectomy Social History (Updated 03/01/23 @ 02:[address] Kristen Caraballo MD) household members: other details: Her 18 year old daughter lives with her. Smoking Status: Never smoker alcohol intake: never substance use type: crack/cocaine, heroin, opiates and IV drugs ROS ROS Narrative Admission Review of Systems: CONSTITUTIONAL: No weight loss, fever, chills, + weakness or fatigue. HEENT: Eyes: No visual loss, blurred vision, double vision or yellow sclerae. Ears, Nose, Throat: No hearing loss, sneezing, congestion, runny nose or sore throat. SKIN: + Hx canine bit prior to recent incarceration. CARDIOVASCULAR: No chest pain, chest pressure or chest discomfort, palpitations,edema, orthopnea, syncopal events. RESPIRATORY: No shortness of breath, cough or sputum, wheezing, hemoptysis. GASTROINTESTINAL:+ anorexia. No nausea, vomiting or diarrhea, abdominal pain, melena, BRBPR. GENITOURINARY: No dysuria, frequency, urgency or retention. NEUROLOGICAL: + Restlessness. No headache, dizziness, syncope, paralysis, ataxia, numbness or tingling in the extremities, focal weakness, change in bowelor bladder control, seizure. MUSCULOSKELETAL: + muscle, back pain, joint pain or stiffness. HEMATOLOGIC: No anemia, bleeding or bruising. LYMPHATICS: No enlarged nodes. No history of splenectomy. PSYCHIATRIC: + history of depression or anxiety. ENDOCRINOLOGIC: No reports of sweating, cold or heat intolerance. No polyuria orpolydipsia. ALLERGIES: + history of rhinitis. Vital Signs Vital Signs Vital Signs: 03/01/23 00:55 Temperature 98 F Temperature Source Temporal Pulse Rate 77 Respiratory Rate 18 Blood Pressure 129/89 H Blood Pressure Mean 102 Pulse Ox 97 Oxygen Delivery Method Room Air Weight Weight: 167 lb 15.876 oz Body Mass Index (BMI) 27.9 Physical Exam Narrative Physical Examination: General: Awake, alert, oriented x 3 and cooperative, seated upright in the ED bed in no apparent distress, very restless, moving around the room constantly. Skin: Normal color, normal turgor, no icterus, no cyanosis except for various abrasions, picked region. HEENT: AT/NC, EOMI, PERRLA, mildly dry MM, no carotid bruits or JVD noted. Lungs: Diminished, > bases, appropriate effort, no rales, ronchi or wheezing. Heart: Regular rate and rhythm; no gallop, rub audible. Abdomen: Soft, overweight, NTTP, ND, mildly hyperative BS, no HSM. Extremities: No cyanosis, clubbing, or edema. Neurological: Patient awake, alert, oriented as noted, cognitive function intact; pupils equally reactive to light and accommodation, cranial nerves grosslynormal, moving all 4 extremities, no focal deficits, strength mildly globally decreased secondary to acute presentation, restless. Psychiatric: Affect appears restless, mildly agitated, no acute evidence of depressive or anxiety feelings but does have underlying history. Results Lab / Micro Data 03/01/23 01:12 03/01/23 01:12 Labs: Laboratory Results - last 24 hr 03/01/23 01:02: Urine Opiates Screen NEGATIVE, Urine Methadone Screen NEGATIVE, Ur Barbiturates Screen NEGATIVE, Ur Phencyclidine Scrn NEGATIVE, Ur AmphetaminesScreen NEGATIVE, MDMA (Ecstasy) Screen POSITIVE H, U Benzodiazepines Scrn NEGATIVE, Urine Cocaine Screen POSITIVE H, U Cannabinoids Screen NEGATIVE, Ur Drug Screen Comment 03/01/23 01:12: WBC 6.4, RBC 3.91 L, Hgb 11.2 L, Hct 35.1 L, MCV 89.8, MCH 28.6,MCHC 31.9 L, RDW Std Deviation 43.7, RDW Coeff of Caroline 13.4, Plt Count 321, MPV 9.2, Immature Gran % (Auto) 0.300, Neut % (Auto) 54.0, Lymph % (Auto) 32.7, [place]% (Auto) 7.2, Eos % (Auto) 4.9, Baso % (Auto) 0.9, Absolute Neuts (auto) 3.5, Absolute Lymphs (auto) 2.09, Nucleated RBC % 0, Sodium 145, Potassium 3.2 L, Chloride 110 H, Carbon Dioxide 31.0, Anion Gap 4 L, BUN 11, Creatinine 0.93, Estim Creat Clear Calc 65.12, Est GFR (MDRD) Af Amer 82, Est GFR (MDRD) Non-Af 67, BUN/Creatinine Ratio 11.8, Glucose 155 H, Calcium 9.0, Serum , QualNEGATIVE, Ethyl Alcohol < 3.0 Assessment & Plan Assessment/Plan (1) Opiate withdrawal: PLAN: Plan The patient is a 52 y/o F w/ PMHx: Allergic rhinitis, HTN, Anxiety and Depression/Bipolar disorder, GERD, Overweight, Polysubstance abuse (Percocet/Opiates/Cocaine, Prior IVDA w/ heroin) who presents to [facility] ED on 03/01/23 with noted acute opiate withdrawal onset starting just prior to presentation following last dose at approximately 10 PM on day prior to presentation with primarily at this point mild agitation and restlessness. #1. Acute Opiate Withdrawal: Will admit to [facility], routine labs including CBC, BMP,urine for drug screen, EtOH initiated per ED physician, will add hepatic panel. Will initiate and continue on protocol with tapering course of Subutex, as needed tylenol, ibuprofen, bowel regimen, gabapentin, Bentyl, Vistaril, methocarbamol, clonidine, PRN nightly trazodone for insomnia, IV fluids, IV antiemetics. Once patient clinically improved and completion of taper nearing will plan consultation with case management for transition to next level of rehabilitation care. #2. Polysubstance Abuse with history of prior IV drug abuse: Given abuse history of IVDA to be cautious will request HIV, hepatitis panel as well as RPR given prominent in the community to be cautious. patient currently not candidatefor hep C treatment currently as needs to be clean, sober x 6 months, documentedattendance NA or AA meetings, counseling and ongoing negative drug screens. Onceappropriate GI, ID to initiate. HIV, hepatitis panel to assess for co-infection pending. Encouraged PCP establishment and follow-up. #3. Hypokalemia: Admission K+ 3.2, magnesium level requested, supplementation given, repeat level in AM. #4. Hyperglycemia: Admission glucose 155, no diabetic history, to be cautious we will obtain hemoglobin A1c and if consistent with diabetes will request nutrition consultation for education and teaching and transition to ADA diet with Accu- Cheks with insulin sliding scale #5. Hypertension: From recent medications noted patient was started on norvasc,BP currently normal range and she states she is not taking, potentially related with cocaine usage, will hold regimen restart and monitor BP with re-addition ifappropriate. #6. Chronic anemia/Fe deficiency: Admission CBC with hemoglobin 11.2, MCV 89.8,most recent labs noted 03/11/19 with Hgb 13.4 at that time, prior medication listnoting Fe supplementation BID, no longer taking. #7. Anxiety and Depression/Bipolar disorder: Patient previously per records hadbeen on Seroquel, hydroxyzine as well as citalopram, reports no longer taking, unfortunately likely contributing to her opiate abuse as well as cocaine use, will encourage aggressive outpatient follow-up and medications for appropriate #8. GERD: Will cotninue home famotidine regimen, PRN mylanta regimen. #9. Allergic rhinitis: From records patient Rx 10/24/22 singulair, given her psychiatric history to be cautious with its black box warning will d/c this medication and recommend claritin or allergra as an initial agent instead. #10. Overweight: Weight loss and lifestyle changes encouraged. #11. DVT prophylaxis: Low risk for current presentation. Charges/Coding Visit Charges Inpatient E&M: 76386 Init Hosp L3 03/01/23 0233 <Electronically signed by Kristen Caraballo MD> Cosigner Signature (if applicable): CC: Dr. Kristen Caraballo MD; Dr. Shira Rider MD~ Signed [facility] Work Phone: History of Present illness Narrative* Ms. Hedrick presents for a hearing evaluation. She has known hearing loss bilaterally and has used hearing aids in the past. She is no longer using hearing aids as she has lost both of them. She feelsthat her hearing is getting worse in the left ear and complains of aural fullness in that ear. She denies tinnitus and dizziness. She has not had any recent ear infections. * Patient's preferred language: [place]se * Preferred language of the parent, legal guardian or surrogate decision-maker of this minor or incapacitated patient: [place]se * No overt signs of domestic violence/neglect/abuse. * No referral made to [employer]. * Pain not interfering with optimal level of function or ability to assess and/or treat. * Pain Scale rank: 0/10 * Pain Scale used: Numeric * No referral made to primary care provider (PCP). * Factors/Barriers influencing patient's ability to complete assessment or learn: none. * Person taught: patient. * Readiness to learn: no barriers. * Results of Teaching/Counseling: verbalize recall / understanding and teaching complete. [facility] [address] [place] Work Phone: Reason for referral (narrative)* Consultation (Routine) - Pending Review Specialty Diagnoses / Procedures Referred By Ana t Referred To Contact Dermatology Diagnoses Scalp lesion Procedures CO OFFICE/OUTPATIENT NEW HIGH MDM 60 MINUTES Roseline Thakkar DO [address] [place] [address] Devin Sorto MD [address] [place] [address] Referral ID Status Reason Start Date Expiration Date Visits Requested Visits Authorized [id number] Pending Review Specialty Services Required 11/12/2023 11/11/2024 1 1 [facility] for referral (narrative)* Consultation (Routine) - Pending Review Specialty Diagnoses / Procedures Referred By Contac t Referred To Contact Infectious Diseases Diagnoses Rash Procedures CO OFFICE/OUTPATIENT NEW HIGH MDM 60 MINUTES Roseline Thakkar DO [address] [place] [address] [facility] [address] [place] [address] Referral ID Status Reason Start Date Expiration Date Visits Requested Visits Authorized [id number] Pending Review Specialty Services Required 03/28/2024 03/28/2025 1 1 T [facility] Summary Purpose Family History Relationship Condition Age at Onset Recorded Date/T meghna mother Diabetes mellitus Unknown Hypertension Unknown Rheumatoid arthritis Unknown father Diabetes mellitus Unknown Malignant neoplasm Unknown Advance Directives Advance Directive Response Recorded Date/ Time Living Will No March 01 3 12:57am Power of Regional Cra No March 01 023 12:57am Advance Directive Response Recorded Date/ Time Living Will No March 01 3 3:04am Power of Regional Cra No March 01, 023 3:04am Chief Complaint annual hearing evaluation Chief Complaint and Reason for Visit Chief Complaint OPIATE WITHDRAWL Reason for Visit History of bipolar d isorder Hypokalemia Noncompliance with medication regimen Opiate withdrawal Polysubstance dependence Chief Complaint OPIATE WITHDRAWL OPIATE WITHDRAWL OPIATE WITHDRAWL Reason for Visit History of bipolar d isorder Hypernatremia Hypokalemia Noncompliance with medication regimen Opiate withdrawal Polysubstance dependence Additional Source Comments INFORMATION SOURCE (unrecogn ized section and content) DATE CREATED AUTHOR 01/07/2018 [facility] DATE CREATED AUTHOR AUTHOR'S ORGANIZ ATION 01/12/2018 [facility] DATE CREATED AUTHOR AUTHOR'S ORGANIZ ATION 01/12/2018 [facility] DATE CREATED AUTHOR AUTHOR'S ORGANIZ ATION 10/15/2018 [facility] DATE CREATED AUTHOR AUTHOR'S ORGANIZ ATION 10/24/2018 [facility] DATE CREATED AUTHOR AUTHOR'S ORGANIZ ATION 08/11/2020 [facility] DATE CREATED AUTHOR AUTHOR'S ORGANIZ ATION 09/13/2021 [facility] DATE CREATED AUTHOR AUTHOR'S ORGANIZ ATION 09/17/2021 [employer] DATE CREATED AUTHOR AUTHOR'S ORGANIZ ATION 12/27/2022 [facility] DATE CREATED AUTHOR AUTHOR'S ORGANIZ ATION 03/10/2023 [facility] DATE CREATED AUTHOR AUTHOR'S ORGANIZ ATION 06/28/2023 [facility] DATE CREATED AUTHOR AUTHOR'S ORGANIZ ATION 04/25/2024 [facility] DATE CREATED AUTHOR AUTHOR'S ORGANIZ ATION 08/04/2024 [facility] DATE CREATED AUTHOR AUTHOR'S ORGANIZ ATION 11/29/[address] [facility] Care Teams (unrecognized sec tion and content) Team Status: Active Member Role Status Dates KALE RIDER Family Provider Active Dr. Shira Rider MD Primary Care Provider Active Team Status: Active Member Role Status Dates Dr. Fabio Mcbride DO Emergency Provider Active Dr. Shira Rider MD Primary Care Provider Active Dr. Kristen Caraballo MD Admit Provider, Attending Prov ider Active Team Status: Active Member Role Status Dates Dr. Fabio Mcbride DO Emergency Provider Active Dr. Shira Rider MD Primary Care Provider Active Dr. Kristen Caraballo MD Admit Provider, Other Provider Active Dr. Taylor Alarcon DO Attending Provider, Other Provide r Active Team Status: Inactive Member Role Status Dates Dr. Fabio Mcbride DO Emergency Provider Active Dr. Shira Rider MD Primary Care Provider Active Dr. Kristen Caraballo MD Admit Provider, Other Provider Active Dr. Taylor Alarcon DO Attending Provider Active Media Sales Executive Relationship Specialty Start Date End Date Shira Rider MD [address] [place] [address] [place] [address] PCP - General 04/11/18 Media Sales Executive Relationship Specialty Start Date End Date Shira Rider MD [address] [place] [address] [place] [address] PCP - General 04/11/18 Media Sales Executive Relationship Specialty Start Date End Date Shira Rider MD [address] [place] [address] [place] [address] PCP - General 04/11/18 Media Sales Executive Relationship Specialty Start Date End Date Roseline Thakkar DO [address] [place] [address] [place] [address] PCP - General Internal Medicine 10/12/23 Media Sales Executive Relationship Specialty Start Date End Date Roseline Thakkar DO [address] [place] [address] [place] [address] PCP - General Internal Medicine 10/12/23 Media Sales Executive Relationship Specialty Start Date End Date Roseline Thakkar DO [address] [place] [address] [place] [address] PCP - General Internal Medicine 10/12/23 Media Sales Executive Relationship Specialty Start Date End Date Roseline Thakkar DO [address] [place] [address] [place] [address] PCP - General Internal Medicine 10/12/23 Media Sales Executive Relationship Specialty Start Date End Date Roseline Thakkar DO [address] [place] [address] [place] [address] PCP - General Internal Medicine 10/12/23 Media Sales Executive Relationship Specialty Start Date End Date Roseline Thakkar DO [address] [place] [address] [place] [address] PCP - General Internal Medicine 10/12/23 Media Sales Executive Relationship Specialty Start Date End Date Roseline Thakkar DO [address] [place] [address] [place] [address] PCP - General Internal Medicine 10/12/23 Media Sales Executive Relationship Specialty Start Date End Date Shira Rider MD [address] [place] [address] [place] [address] PCP - General 04/11/18 Media Sales Executive Relationship Specialty Start Date End Date Shira Rider MD [address] [place] [address] [place] [address] PCP - General 04/11/18 Media Sales Executive Relationship Specialty Start Date End Date Roseline Thakkar DO [address] [place] [address] [place] [address] PCP - General Internal Medicine 10/12/23 Media Sales Executive Relationship Specialty Start Date End Date Roseline Thakkar DO [address] [place] [address] [place] [address] PCP - General Internal Medicine 10/12/23 Media Sales Executive Relationship Specialty Start Date End Date Roseline Thakkar DO [address] [place] [address] [place] [address] PCP - General Internal Medicine 10/12/23 Media Sales Executive Relationship Specialty Start Date End Date Roseline Thakkar DO [address] [place] [address] PCP - General Internal Medicine 10/12/23 Goals (unrecognized section and content) Goals may be documented in a n alternate section Source Comments (unrecognize d section and content) In the event this informatio n is protected by the Federal Confidentiality of Alcohol and Drug Abuse Patient Records regulations: The Federal rules restrict any use of the information to criminally investigate or prosecute any alcohol or drug abuse patient.[facility] the event this information is protected by the Federal Confidentiality of Alcohol and Drug Abuse Patient Records regulations: The Federal rules restrict any use of the information to criminally investigate or prosecute any alcohol or drug abuse patient.[facility] the event this information is protected by the Federal Confidentiality of Alcohol and Drug Abuse Patient Records regulations: The Federal rules restrict any use of the information to criminally investigate or prosecute any alcohol or drug abuse patient.[facility] Reason for Visit (unrecogniz ed section and content) Reason Comments Cough LACY, coughing up mucu s, chest feels heavy x 2.5 weeks Reason Comments Bug bites Bites all over her b jesica last week Finger Pain Left ring finger sla mmed in door swelling Reason Onset Date Comments Med Refill 07/07/2023 Reason Onset Date Comments Mass 09/16/2023 Reason Onset Date Comments Med Refill 09/23/2023 Reason Comments New Patient Rx refills, L side o f neck Lymph node from liriano needing antibiotics. Reason Onset Date Comments palpable lymph nodes 12/07/2023 Reason Comments Neck Mass Lymph node, x 3 wks, bilateral, painful Reason Onset Date Comments Rash 03/15/2024 Reason Comments Rash Rash/bumps are not i mproving. Patient reports rash all over body not going away. (Possibly from roommate) UTI UTI symptoms. Report s urgency, burning, spasms Discuss Medications Wants to take [place] x only prn, also wants to increase Pepcid Reason Onset Date Comments Medication Problem 06/05/2024 Reason Onset Date Comments Med Refill 06/05/2024 Reason Onset Date Comments Test Scheduling 06/23/2024 Reason Onset Date Comments Itching 07/23/2022 Head lice Reason Onset Date Comments Anxiety 07/24/2022 Reason Comments Med Refill Reason Comments Follow-up Patient here for fol low up. Requesting medication for MRSA, it resolved but it is coming back. Reason Onset Date Comments UTI 09/04/2024 Reason Comments Knee Pain Patient states bilat eral knee pain, swelling, tightness, going on for 3 days, taking OTC Reason Onset Date Comments UTI 11/28/2024 FOR RECORDS PERTAINING TO PATIENTS WHO ARE OR HAVE BEEN ENROLLED IN A CHEMICAL DEPENDENCY/SUBSTANCEABUSE PROGRAM, SOME INFORMATION MAY BE OMITTED. This clinical summary was aggregated from multiple sources. Caution should be exercised in using it in the provision of clinical care. This summary normalizes information from multiple sources, and as a consequence, information in this document may materially change the coding, format and clinical context of patient data. In addition, data may be omitted in some cases. CLINICAL DECISIONS SHOULD BE BASED ON THE PRIMARY CLINICAL RECORDS. [employer] provides no warranty or guarantee of the accuracy or completeness of information in this document.
--- OUTSIDE RECORDS SUMMARY | 2025-01-25 22:48 | XMS RPT_ITS | CCD ---
Author Organization [facility] Care Team Providers Care Burr Bench Operator Name Role Phone Pro Ellis Unavailable Unavailable [...] Sommers Unavailable Unavailable Kennedy Kim Unavailable Unavailable Israel Michelle Unavailable Unavailable Benyaminever Farzaneh Unavailable Unavailable Edison, Mireya Y Unavailable Unavailable PROVIDER, UNKNOWN Attending Unavailable PROVIDER, UNKNOWN Admitting Unavailable Edison, Mireya Y Unavailable Unavailable Unavailable MEGHNA HERNANDEZ Attending Unava ilable TERESO, SHIRA S Primary Care Unavailable Le, Dr. Fabio Emergency Provider [phone] Shira Rider Primary Care Provider Dr. Kristen Caraballo Admit Provider Dr. Kristen Caraballo Other Provider Dr. Taylor Alarcon Attending Provider [phone] Taylor Alarcon Other Provider [facility] Primary Care Unavailable Kristen Caraballo Admitting Unavailable Kristen Caraballo Consulting Unavailable Kristen Caraballo Attending Unavailable Taylor Alarcon Attending Unavailable Taylor Alarcon Consulting Unavailable [facility] Shira Primary Care Unavailable Taylor Alarcon Attending Unavailable Kristen Caraballo Admitting Unavailable Kristen Caraballo Consulting Unavailable Unavailable Primary Care Provider UnavailJEN Perez Referring Unavailable [facility] Provider Roseline Thakkar DO Primary Care Provider [phone] Unavailable Primary Care Provider Unavailsalvador AUGUSTE, MS. VERN NASCIMENTO Primary Care Allison SOTO MD, CARLTON Attending Unavailable ANNY MARK MD Attending Unavailable ROBY SENA Primary Care Unavailable BRITTANY HARRELL, CARLTON Attending Unavailable ROBY SENA Primary Care Unavailable Shira Rider MD Primary Care Provider [facility] Primary Care Unavailable TRISTAN MCCLELLAN Attending Unavailable [...] [DOXYCYCLINE] Drug Allergy 12-18-19 15 Rash, Itching [facility] Repository (20 sources) ibuprofen; Translations: [IBUPROFEN] Drug Allergy 12-11-19 15 Nausea Only [facility] Repository (20 sources) Latex; Translations: [LATEX] Propensity to adverse reactions to drug (disorder) 12-02-19 14 Rash, Itching, Nausea Only, Nausea And Vomiting [facility] Repository (20 sources) naproxen; Translations: [NAPROXEN] Drug Allergy 09-26-19 15 Swelling [facility] Repository (20 sources) Penicillins; Translations: [PENICILLINS] Propensity to adverse reactions to drug (disorder) 10-16-19 01 Rash, Shortness of Breath, Itching, Swelling [facility] Repository (2 sources) Amoxicillin; Translations: [Amoxil CAPS] Drug Allergy SI-Mhhbgduuy-Q arma Work Phone: (2 sources) Ampicillin; Translations: [Ampicillin CAPS] Drug Allergy IH-Jxatyqkou-N arma Work Phone: (2 sources) Doxycycline; Translations: [Doxycycline Hyclate CAPS] Drug Allergy IE-Aldqgsqbm-I arma Work Phone: (2 sources) Naproxen; Translations: [Naproxen TABS] Drug Allergy DW-Ytihyacyj-K arma Work Phone: (2 sources) Latex Gloves MISC; Translations: [Latex Gloves MISC] drug allergy [facility] -P arma Work Phone: (1 source) Penicillin; Translations: [PENICILLIN G] Drug Allergy 10-16-19 01 [facility] ([facility] sources) Codeine; Translations: [CODEINE] Drug Allergy 09-15-19 18 Swelling, Itching [facility] (2 sources) Nonsteroidal Anti-inflammatory Compounds Propensity to adverse reactions 03-11-20 19 Upset Stomach [facility] (2 sources) Sulfamethoxazole Drug Allergy 03-11-20 19 Rash [facility] (2 sources) Trimethoprim Drug Allergy 03-11-20 19 Rash [facility] (1 source) Codeine Drug Allergy 03-11-20 19 [facility] Repository (1 source) NSAIDs Drug allergy (disorder) 03-11-20 19 [facility] Repository (1 source) Sulfamethoxazole Drug Allergy 03-11-20 19 [facility] Repository (1 source) Trimethoprim Drug Allergy 03-11-20 19 [facility] Repository (4 sources) lurasidone; Translations: [LURASIDONE] Drug Allergy 05-12-20 23 Shortness of Breath [facility] (4 sources) Sertraline; Translations: [SERTRALINE] Drug Allergy 05-12-20 23 Shortness of Breath [facility] (20 sources) Sulfamethoxazole / Trimethoprim; Translations: [SULFAMETHOXAZOLE-T RIMETHOPRIM] Drug Allergy 04-12-20 17 Rash, Hives [facility] (4 sources) Vancomycin; Translations: [VANCOMYCIN] Drug Allergy 05-12-20 23 GI Upset, Itching [facility] (20 sources) Aluminum aspirin Drug Allergy 07-04-20 15 Unknown [facility] (20 sources) lurasidone Drug Allergy 09-17-19 18 [facility] (20 sources) penicillAMINE Drug Allergy 05-28-20 22 Swelling [facility] (20 sources) Prochlorperazine Drug Allergy 03-13-20 19 Unknown [facility] Medications Current Medications Medication Drug Class(es) Dates Sig (Normalized) Sig (Original) [id number] 200 actuat albuterol 0.09 mg/actuat metered dose [...] g 3 11/12/2023 Active polyethylene glycol 3350 32026 mg powder for oral solution (20 sources) [...] Range Facility 36on 11-28-2024 36 noted Normal [facility] 36 S: Patient spoke wit h CAC [...] Advised that she could be seen in [facility] up until 7pm. Patient voiced understanding. Advised [...] to urinate (i.e., urgency) Protocols used: Urinary Vtrpsbvb-KNSDN-OI Normal [facility] Office Visiton 10-18-2024 Follow-up visit [id number] Kiana Hedrick 1970 F Date Provider Department Center 10/18/2024 [id number], KORY [facility] Family History Problem Relation Age of Onset [...] Alive Daughter Alive Sister Alive Level of Service:67282 [place] OFFICE/OUTPATIENT ESTABLISHED MOD MDM 30 MIN Reason for Visit and Comments: Knee Pain [134461] - Patient states bilateral knee pain, swelling, tightness, going on for 3 days, taking OTC Normal [facility] Progress Noteon 10-18-2024 Progress Note [facility] - [address] [facility] [address] Visit Type: Same Day PCP: Roseline [...] for 12-14 hours a day - Wears [place] shoes, previously wore steel-sole shoes which caused [...] to scalp, lathe (more content not included)... [facility] 36on 09-04-2024 36 S: [facility] nurse regarding bladder infection concern B:onset symptoms/concern: [...] urination Protocols used: Urination Pain - ADULT-OH [facility] ED NOTEon 07-31-2024 ED NOTE HNO ID: [id number] Author: ZULEIKA MENDOZA RN Service: Nursing Author Type: Registered Nurse Type: ED Notes Filed: 07/31/2024 23:48 Note Text: Pt was alert and oriented times 3 when she left she was able to answer questions correctly gait was unsteady when she walked Dr Mcclellan was aware of the walking and the pts behavior while in the er [facility] ED NOTE HNO ID: [id number] Author: ZULEIKA MENDOZA RN Service: Nursing Author Type: Registered Nurse Type: ED Notes Filed: 07/31/2024 23:48 Note Text: Pt was discharged to return to the [facility] she was sent back per [facility] ED NOTE HNO ID: [id number] Author: ZULEIKA MENDOZA RN Service: Nursing Author Type: Registered Nurse Type: ED Notes Filed: 07/31/2024 23:26 Note Text: Pt is walking around the er room gait is unsteady she denies SI denies HI she answers questions appropriately Pt was observed drinking from the er room sink with her mouth Waiting at present for an uber ride to return to the [facility] Dr Mcclellan has talked to the [facility] regarding her return to the [facility] ED NOTE HNO ID: [id number] Author: ZULEIKA MENDOZA RN Service: Nursing Author Type: Registered Nurse Type: ED Notes Filed: 07/31/2024 22:45 Note Text: Ptis moving about the er room 11 she was medicated for pain [facility] ED NOTE HNO ID: [id number] Author: COURTNEY CARRENO RN Service: ? Author Type: Registered Nurse Type: ED Notes Filed: 07/31/2024 21:11 Note Text: Bed: ED-11 Expected date: Expected time: Means of arrival: Comments: [address] ED PROV NOTEon 07-31-2024 ED PROV NOTE HNO ID: [id number] Author: TRISTAN MCCLELLAN MD Service: Emergency Medicine [...] back pain. [facility]. Reports history of fibromyalgia and also chronic [...] to displa (more content not included)... Normal [facility] 29on 07-28-2024 29 Addended by: RAMYA SEGOVIA on: 08/01/2024 09:14 AM Modules accepted: Level of Service Normal [facility] Office Visiton 07-28-2024 Follow-up visit [id number] Kiana Hedrick 1970 F Date Provider Department Center 07/28/2024 [id number] SEGOVIA [facility] Family History Problem Relation Age of Onset [...] Alive Daughter Alive Sister Alive Level of Service:64321 [place] OFFICE/OUTPATIENT ESTABLISHED [place] MDM 10 MIN Reason for Visit and Comments: Follow-up [734126] - Patient here for follow up. Requesting medication for MRSA, it resolved but it is coming back. Normal [facility] Progress Noteon 07-28-2024 Progress Note [facility] [place] [address] [facility] [address] [facility] [address] Dept: [phone] Dept Visit Date: 07/28/24 HPI: October Ryley [...] are pruritic. We have no records from [facility], we have requested the patient to complete zabrina prior but no acesss. I have minimal reports via care everywhere. Last ed visit I see was 04/13, so three months ago. A culture was obtained, mrsa. This is when she was prescribed linezolid. [place] it got better but then worsened. Current [...] Seborrheic derm (more content not included)... Normal [facility] 36on 07-03-2024 36 Spoke with pt advisjuan potter message She advised her sx haven't resolved after finishing the medication Pt tried to get a refill but DDM advised she needs seen by the office Appt scheduled with RONY tomorrow [facility] 36 She needs to talk to [facility] about this. Not sure why she needs a refill of the med she already took for the mrsa. [address] 06-30-2024 36 Name of caller: Kiana ambrosio Contact phone number: [phone] Relationship to Patient: patient Provider: Ariane Practice: Lynda FRASER Chief Complaint/Reason for Call: Patient called back in with the medication name for her MRSA. It is called VIVI (Mario). Please note and advise. Best time of day caller can be reached: any Patient advised that office/PCP has 24-48 business hours to return their call: No [address] 06-28-2024 [address] 06-23-2024 36 We have been unable to reach your patient to schedule their testing. Test Name: Head and neck ultrasound 1st Attempt: 01/15/24 via [employer] message 2nd Attempt: Cancelled/no show 01/19/24, 01/29/24, 06/07/24 TE sent to office, cancel request 06/23/[address] 06-20-2024 36 Lmom letting pt know [employer] message sent and needing for [facility] information to get list of Rx pt was on. [address] 06-16-2024 36 Lmom to fill out ZABRINA for Rx from [facility]. [address] 06-06-2024 36 Please obtain record s from [facility]. [address] 06-05-2024 36 Name of caller: Kiana ambrosio Contact phone number: [phone] Relationship to Patient: patient Provider: Ariane Practice: Lynda Primary Chief Complaint/Reason for Call: Patient said she needs her amlodipine sent to the [facility] on . Please advise Best time of day caller can be reached: any Patient advised that office/PCP has 24-48 business hours to return their call: No [facility] 36 Name of caller: Kiana ambrosio Contact phone number: [phone] Relationship to Patient: patient Provider: ariane Practice: lynda Chief Complaint/Reason for Call: [facility] she has mrsa [...] business hours to return their call: no [facility] Clinical Interventi ons-Texton 04-24-2024 Pharmacy Clinical [...] clindamycin script to pharmacy for her to olive picker later today. Fatimah Fonseca RPh - 04/24/2024 13:11 EDT [facility] Clinical Interventi ons-Texton 04-18-2024 Pharmacy [...] Karan Hoyos RPh - 04/18/2024 12:57 EDT [facility] C MISCon 04-16-[address] [facility] pt of Laboratory Services [address] [place] [address] Name: KAMLA HEDRICK : 1970 Admitting Provider: Gender Female Financial [id number] : Number: Danyell ORTEZ; RA; 1 n: [...] KAMLA HEDRICK Print 04/16/2024 09:42 EDT [facility] [address] [place] [id number] Name: KAMLA HEDRICKN: [id number] : 1970 Admitting Provider: Gender Female Financial [id number] : Number: Danyell ORTEZJanet MARIE; 1 n: Admit 04/13/2024 Date: Discharge 04/13/2024 Microbiology Date: SUSCEPTIBILITY RESULTS Staphylococcus aureus Antibiotic RAINER Interp Amp/Sulbactam Resistant Cefazolin Resistant Clindamycin Susceptible Erythromycin Resistant Gentamicin Susceptible Oxacillin Resistant Tetracycline Resistant Trimethoprim/Sulfametho xazole Resistant Vancomycin Susceptible ____ L=Low, H= High, *= Abnormal, C=Critical, f=Footnote, c=Corrected, i=Interp Data Name: KAMLA HEDRICK Print 04/16/2024 09:42 EDT Date/Time: Normal [facility] Comment on above: Performed By: #### 9 [id number] #### [facility] [address] [place] [address] Family Dinner Service Specialist: Demetrio Rodrigez MD ED Data FINANCE BUSINESS MANAGER - Texton 024 ED Data FINANCE BUSINESS MANAGER - Text ED Data FINANCE BUSINESS MANAGER Entered On: 04/13/2024 16:30 EDT Performed On: 04/13/2024 16:20 EDT by Agustina Goodman RN ED General Intake Information Hamel Coma : Document Hamel Coma Scale Problem History : Document Problem [...] Agustina Goodman RN - 04/13/2024 16:26 EDT Hamel Coma Scale Eye Opening : Spontaneously Best Verbal Response : Oriented Best Motor Response : Obeys simple commands Hamel Coma Score (Ref) : 15 Agustina Goodman RN - 04/13/2024 16:26 EDT Problem History (As Of: 04/13/2024 16:30:17 EDT) Problems(Active) Bipolar 1 disorder (SNOM[address] :0170312490 ) Name of Problem: Bipolar 1 disorder ; Recorder: Monica Doll RN; Confirmation: Confirmed ; Classification: Patient/Family Stated ; Code: 2588898516 ; Contributor System: 3VR ; Last Updated: 06/10/2016 19:47 EST ; Life Cycle Date: 06/10/2016 ; Life Cycle Status: Active ; Vocabulary: SNOMED CT Crohns disease (SNOMED CT :5009619089 ) Name of Problem: Crohns disease ; Recorder: Zuleika Wagner RN; Confirmation: Confirmed ; Classification: Medical ; Code: 8841451520 ; Contributor System: 3VR ; Last Updated: 01/27/2017 19:25 EDT ; Life Cycle Date: 01/27/2017 ; Life Cycle Status: Active ; Vocabulary: SNOMED CT Methicillin resistant Staphylococcus aureus (SNOMED CT :859855058 ) Name of Problem: Methicillin resistant Staphylococcus aureus ; Recorder: SYSTEM; Confirmation: Confirmed ; Classification: Medical ; Code: 837919522 ; Last Updated: 09/20/2023 06:47 EST ; [...] patient. Opioid use disorder, Severe (SNOMED CT :173333814 ) Name of Problem: Opioid use disorder, Severe ; Recorder: ROBERT MENDOZA DO; Confirmation: Confirmed ; Classification: Medical ; Code: 338558586 ; Contributor System: 3VR ; Last Updated: 03/01/2017 15:02 EDT ; Life Cycle Status: Active ; Responsible Provider: ROBERT MENDOZA DO; Vocabulary: SNOMED CT Posttraumatic stress disorder (SNOMED CT :232892687 ) Name of Problem: Posttraumatic stress disorder ; Recorder: ROBERT MENDOZA DO; Confirmation: Confirmed ; Classification: Medical ; Code: 224169302 ; Contributor System: 3VR ; Last Updated: 03/01/2017 15:02 EDT ; Life Cycle Status: Active ; Responsible Provider: ROBERT MENDOZA DO; Vocabulary: SNOMED CT PTSD (post-traumatic stress disorder) (SNOMED CT :908626874 ) Name of Problem: PTSD (post-traumatic stress disorder) ; Recorder: Monica Doll RN; Confirmation: Confirmed ; Classification: Patient/Family Stated ; Code: 302513755 ; Contributor System: 3VR ; Last Updated: 06/10/2016 19:47 EST ; Life Cycle Date: 06/10/2016 ; Life Cycle Status: Active ; Vocabulary: SNOMED CT Tobacco use disorder, Moderate (SNOMED CT :57908990 ) Name of Problem: Tobacco use disorder, Moderate ; Recorder: ROBERT MENDOZA DO; Confirmation: Confirmed ; Classification: Medical ; Code: 13985735 ; Contributor System: 3VR ; Last Updated: 03/01/2017 15:03 EDT ; Life Cycle Status: Active ; Responsible Provider: ROBERT MENDOZA DO; Vocabulary: SNOMED CT Vancomycin resistant enterococcus (SNOMED CT :721841562 ) Name of Problem: Vancomycin resistant enterococcus ; Recorder: SYSTEM; Confirmation: Confirmed ; Classification: Medical ; Code: 010885011 ; Last Updated: 02/02/2016 06:33 EDT ; [...] ; Clinica (more content not included)... Normal [facility] ED Discharge Educationon ED Discharge Education Dermatology Folliculitis: Care Instructions Overview Folliculitis (say gps-KIT-wrx-LY-tus) is an inflammation of the pouches (follicles) [...] Where can you learn more? Go to https://www.Affine. Delphi/patientEd Enter M257 in the search box to learn more about Folliculitis: Care Instructions. Current as of: June 02, 2021 Content Version: 13.3 ? [employer]. Care instructions adapted under license by your healthcare professional. If you have questions about a medical condition or this instruction, always ask your healthcare professional. [employer] disclaims any warranty or liability for your use of this information. Normal [facility] ED Emergency Severity Index Adult-Texton 04-13-2024 ED Emergency Severity Index Adult-Text AIDEN - Adult Entered On: 04/13/2024 16:30 EDT Performed On: 04/13/2024 16:20 EDT by Agustina Goodman RN DCP GENERIC CODE Visit Reason : NECK PAIN Tracking Triage Date/Time : 04/13/2024 16:30 EDT Tracking Reg Status : Requested Tracking Acuity : [id number]-Wyruvd Tracking Group : Agustina Alba RN - 04/13/2024 16:26 EDT Normal [facility] ED Patient Summaryon 024 ED Patient Summary [facility] Emergency Department Discharge Instructions [address] [place] [address] (Patient Copy) Name: RYLEY October : 1970 Allergies: penicillins; naproxen; ibuprofen; doxycycline; Compazine; Bactrim Diagnosis: Acute folliculitis. Visit Date: 04/13/2024 16:09:19 [facility]#: [id number] Current Date Time: 04/13/2024 17:25:55 Address: [address] [place] [address] Primary Care Provider: Name: VERN AUGUSTE Phone: [phone] Emergency Department Care Providers: Primary Physician: CARLTON SOTO MD Thank you for choosing [facility] for your emergency care. You are very important to us. Our goal is to demonstrate our high quality medical care, and provide you with a very good patient experience. You may receive a survey about our service. Please take the time to complete the survey and return it so we can continue to enhance our service. Thank you again for allowing the [facility] Emergency Department to care for your medical needs. If you have questions about your care or follow up information please contact us at [phone]. Follow-Up Instructions RYLEYOctober D has been given [...] materials: Folliculitis: Care Instructions Overview Folliculitis (say gkh-NPV-xrv-LY-tus) is an inflammation of the pouches (follicles) [...] Where can you learn more? Go to https://www.Affine. net/patientEd Enter M257 in the search box to learn more about Folliculitis: Care Instructions. Current as of: June 02, 2021 Content Version: 13.3 ? [employer]. Care instructions adapted under license by your healthcare professional. If you have questions about a medical condition or this instruction, always ask your healthcare profess (more content not included)... Normal [facility] ED Physician Reporton 2023 ED Physician [...] sees Dr. Thakkar now and also a gate keeper. She has an appointment scheduled for ultrasound [...] oral tablet), 500 mg= 1 tabs, ORAL, [id number] C MISC(MISCELLANEOUS CULTURE), ROUTINE, BRITTANY HARRELL, CARLTON, 04/13/2024 16:39:00 EDT, Specimen type: WOUND, scalp wound occipital Problem List/Past Medical History Ongoing Crohns disease Methicillin resistant Staphylococcus aureus Opioid use disorder, Severe Posttraumatic stress disorder Tobacco use disorder, Moderate Van (more content not included)... Normal [facility] ED Progress Noteon 4 ED Progress [...] steady gait out to private vehicle. Normal [facility] ED Triage FINANCE BUSINESS MANAGER - Text[employer] 04-13 ED Triage FINANCE BUSINESS MANAGER - Text ED Triage FINANCE BUSINESS MANAGER Enter ed On: 04/13/2024 16:28 EDT Performed [...] EDT) Problems(Active) Bipolar 1 disorder (SNOMED CT :6589471611 ) Name of Problem: Bipolar 1 disorder ; Recorder: Monica Doll RN; Confirmation: Confirmed ; Classification: Patient/Family Stated ; Code: 5489070257 ; Contributor System: 3VR ; Last Updated: 06/10/2016 19:47 EST ; Life Cycle Date: 06/10/2016 ; Life Cycle Status: Active ; Vocabulary: SNOMED CT Crohns disease (SNOMED CT :0939108471 ) Name of Problem: Crohns disease ; Recorder: Zuleika Wagner RN; Confirmation: Confirmed ; Classification: Medical ; Code: 9933046184 ; Contributor System: 3VR ; Last Updated: 01/27/2017 19:25 EDT ; Life Cycle Date: 01/27/2017 ; Life Cycle Status: Active ; Vocabulary: SNOMED CT Methicillin resistant Staphylococcus aureus (SNOMED CT :884131382 ) Name of Problem: Methicillin resistant Staphylococcus aureus ; Recorder: SYSTEM; Confirmation: Confirmed ; Classification: Medical ; Code: 111834084 ; Last Updated: 09/20/2023 06:47 EST ; [...] patient. Opioid use disorder, Severe (SNOMED CT :988529141 ) Name of Problem: Opioid use disorder, Severe ; Recorder: ROBERT MENDOZA DO; Confirmation: Confirmed ; Classification: Medical ; Code: 480653945 ; Contributor System: 3VR ; Last Updated: 03/01/2017 15:02 EDT ; Life Cycle Status: Active ; Responsible Provider: ROBERT MENDOZA DO; Vocabulary: SNOMED CT Posttraumatic stress disorder (SNOMED CT :937121477 ) Name of Problem: Posttraumatic stress disorder ; Recorder: ROBERT MENDOZA DO; Confirmation: Confirmed ; Classification: Medical ; Code: 950242282 ; Contributor System: [employer] ; Last Updated: 03/01/2017 15:02 EDT ; Life Cycle Status: Active ; Responsible Provider: ROBERT MENDOZA DO; Vocabulary: SNOMED CT PTSD (post-traumatic stress disorder) (SNOMED CT :269015159 ) Name of Problem: PTSD (post-traumatic stress disorder) ; Recorder: Monica Doll RN; Confirmation: Confirmed ; Classification: Patient/Family Stated ; Code: 253717911 ; Contributor System: PowerChart ; Last Updated: 06/10/2016 19:47 EST ; Life Cycle Date: 06/10/2016 ; Life Cycle Status: Active ; Vocabulary: SNOMED CT Tobacco use disorder, Moderate (SNOMED CT :17156711 ) Name of Problem: Tobacco use disorder, Moderate ; Recorder: ROBERT MENDOZA DO; Confirmation: Confirmed ; Classification: Medical ; Code: 51199668 ; Contributor System: PowerChart ; Last Updated: 03/01/2017 15:03 EDT ; Life Cycle Status: Active ; Responsible Provider: ROBERT MENDOZA DO; Vocabulary: SNOMED CT Vancomycin resistant enterococcus (SNOMED CT :378455743 ) Name of Problem: Vancomycin resistant enterococcus ; Recorder: SYSTEM; Confirmation: Confirmed ; Classification: Medical ; Code: 449485180 ; Last Updated: 02/02/2016 06:33 EDT ; [...] PNED ; Probability: 0 ; Diagnosis Code: [id number] Reason for Visit (As Of: 04/13/2024 16:28:23 EDT) Problems(Active) B (more content not included)... Normal [facility] AMB POC URINALYSIS DIP STICK AUTO W/O MICROon 03-28-2024 Bilirubin, UA Negative [facility] Blood, UA Negative [facility] Glucose, UA Negative [facility] Interpretation and review of laboratory results Abnormal [facility] Ketones, UA (mg/dL) Negative Negative mg/dL [facility] Leukocytes, UA Small [facility] Nitrite, UA Negative [facility] pH, UA 7.0 [facility] Protein, UA Negative [facility] Spec Grav, UA 1.[address] [facility] Urobilinogen, UA 0.[address] [facility] al[facility] Office Visiton 03-28-2024 Follow-up visit [id number] Kiana Hedrick 1970 F Date Provider Department Center 03/28/2024 [id number] THAKKAR [facility] Family History Problem Relation Age of Onset [...] Alive Daughter Alive Sister Alive Level of Service:01712 [place] OFFICE/OUTPATIENT ESTABLISHED MOD [facility] 30 MIN Reason for Visit and Comments: Rash [544041] - Rash/bumps are not improving. Patient reports rash all over body not going away. (Possibly from roommate) UTI [[id number]] - UTI symptoms. Reports urgency, burning, spasms Discuss Medications [876] - Wants to take Topamax only prn, also wants to increase Pepcid Normal [facility] Progress Noteon 03-28-2024 Progress Note [facility] [place] [address] [facility] [address] [facility] [address] Visit Type: Office Visit PCP: Roseline [...] scabies. Notes she is following with the gate keeper. Has appt with derm on Wednesday. (Dr. [...] 02/01/2015 Objective (more content not included)... Normal [facility] 36on 03-15-2024 36 S: Patient spoke wit [...] less.) Protocols used: Rash or Redness - Ieywkjhtmd-PAHCI-LS Normal [facility] ED Data FINANCE BUSINESS MANAGER - [employer]on 024 ED Data FINANCE BUSINESS MANAGER - Text ED Data FINANCE BUSINESS MANAGER Entered On: 03/03/2024 11:00 EDT Performed On: 03/03/2024 10:57 EDT by Ramya Stewart RN ED General Intake Information Information Given By : Patient Hamel Coma : Document Hamel Coma Scale Problem History : Document Problem [...] Ramya Stewart RN - 03/03/2024 10:57 EDT Hamel Coma Scale Eye Opening : Spontaneously Best Verbal Response : Oriented Best Motor Response : Obeys simple commands Hamel Coma Score (Ref) : 15 Ramya Stewart RN - 03/03/2024 10:57 EDT Problem History (As Of: 03/03/2024 11:00:19 EDT) Problems(Active) Bipolar 1 disorder (SNOM[address] :6323902109 ) Name of Problem: Bipolar 1 disorder ; Recorder: Monica Doll RN; Confirmation: Confirmed ; Classification: Patient/Family Stated ; Code: 9562811696 ; Contributor System: 3VR ; Last Updated: 06/10/2016 19:47 EST ; Life Cycle Date: 06/10/2016 ; Life Cycle Status: Active ; Vocabulary: SNOMED CT Crohns disease (SNOMED CT :0502575164 ) Name of Problem: Crohns disease ; Recorder: Zuleika Wagner RN; Confirmation: Confirmed ; Classification: Medical ; Code: 9989520223 ; Contributor System: 3VR ; Last Updated: 01/27/2017 19:25 EDT ; Life Cycle Date: 01/27/2017 ; Life Cycle Status: Active ; Vocabulary: SNOMED CT Methicillin resistant Staphylococcus aureus (SNOMED CT :502594910 ) Name of Problem: Methicillin resistant Staphylococcus aureus ; Recorder: SYSTEM; Confirmation: Confirmed ; Classification: Medical ; Code: 599907629 ; Last Updated: 09/20/2023 06:47 EST ; [...] patient. Opioid use disorder, Severe (SNOMED CT :742443475 ) Name of Problem: Opioid use disorder, Severe ; Recorder: ROBERT MENDOZA DO; Confirmation: Confirmed ; Classification: Medical ; Code: 952759413 ; Contributor System: 3VR ; Last Updated: 03/01/2017 15:02 EDT ; Life Cycle Status: Active ; Responsible Provider: ROBERT MENDOZA DO; Vocabulary: SNOMED CT Posttraumatic stress disorder (SNOMED CT :605733814 ) Name of Problem: Posttraumatic stress disorder ; Recorder: ROBERT MENDOZA DO; Confirmation: Confirmed ; Classification: Medical ; Code: 494089954 ; Contributor System: 3VR ; Last Updated: 03/01/2017 15:02 EDT ; Life Cycle Status: Active ; Responsible Provider: ROBERT MENDOZA DO; Vocabulary: SNOMED CT PTSD (post-traumatic stress disorder) (SNOMED CT :271863484 ) Name of Problem: PTSD (post-traumatic stress disorder) ; Recorder: Monica Doll RN; Confirmation: Confirmed ; Classification: Patient/Family Stated ; Code: 345823026 ; Contributor System: 3VR ; Last Updated: 06/10/2016 19:47 EST ; Life Cycle Date: 06/10/2016 ; Life Cycle Status: Active ; Vocabulary: SNOMED CT Tobacco use disorder, Moderate (SNOMED CT :92712677 ) Name of Problem: Tobacco use disorder, Moderate ; Recorder: ROBERT MENDOZA DO; Confirmation: Confirmed ; Classification: Medical ; Code: 74224535 ; Contributor System: 3VR ; Last Updated: 03/01/2017 15:03 EDT ; Life Cycle Status: Active ; Responsible Provider: ROBERT MENDOZA DO; Vocabulary: SNOMED CT Vancomycin resistant enterococcus (SNOMED CT :909544853 ) Name of Problem: Vancomycin resistant enterococcus ; Recorder: SYSTEM; Confirmation: Confirmed ; Classification: Medical ; Code: 766976501 ; Last Updated: 02/02/2016 06:33 EDT ; [...] ; Clini (more content not included)... Normal [facility] ED Discharge Educationon ED Discharge Education [...] your doctor if you can take an idir-amr-hyqxukj medicine. ? Rest and protect your knee. [...] Where can you learn more? Go to https://www.Affine. net/patientEd Enter K195 in the search box to learn more about Knee Pain or Injury: Care Instructions. Current as of: September 24, 2021 Content Version: 13.3 ? [employer]. Care instructions adapted under license by your healthcare professional. If you have questions about a medical condition or this instruction, always ask your healthcare professional. [employer] disclaims any warranty or liability for your use of this information. Normal [facility] ED Emergency Severity Index Adult-Texton 03-03-2024 ED Emergency Severity Index Adult-Text AIDEN - Adult Entered On: 03/03/2024 11:00 EDT Performed On: 03/03/2024 10:50 EDT by Pat TRACY, Ramya WOLFE DCP GENERIC CODE Visit Reason : KNEE PAIN Tracking Triage Date/Time : 03/03/2024 11:00 EDT Tracking Reg Status : Complete Tracking Acuity : [id number] Tracking Group : CLARENCE Stewart RN, Ramya - 03/03/2024 10:57 EDT Normal [facility] ED Patient Summaryon 024 ED Patient Summary [facility] Emergency Department Discharge Instructions [address] [place] [address] (Patient Copy) Name: KAMLA HEDRICK : 1970 Allergies: penicillins; naproxen; ibuprofen; doxycycline; Compazine; Bactrim Diagnosis: Knee injury Visit Date: 03/03/2024 10:43:41 Current Date Time: 03/03/2024 12:07:53 Address: [address] [place] [address] Primary Care Provider: Name: ROBY SENA Emergency Department Care Providers: Primary Physician: ANNY MARK MD Thank you for choosing [facility] for your emergency care. You are very important to us. Our goal is to demonstrate our high quality medical care, and provide you with a very good patient experience. You may receive a survey about our service. Please take the time to complete the survey and return it so we can continue to enhance our service. Thank you again for allowing the [facility] Emergency Department to care for your medical needs. If you have questions about your care or follow up information please contact us at [phone]. Follow-Up Instructions KAMLA HEDRICK has been given these follow-up instructions: With: Address: When: ALLA KUHN, Orthopedic Surgery [address] [facility], [address] [address] Business (1) Within 3 to [...] your doctor if you can take an dyzv-ljl-mgxpvjt medicine. ? Rest and protect your knee. [...] groin. Watc (more content not included)... Normal [facility] ED Physician Reporton 2023 ED Physician [...] complete this note and may contain unintentional chief medical technologist errors. Discharge/Plan *Discharge Disposition NO DISCHARGE DISPOSITION DOCUMENTED Patient Education Knee Pain or Injury Follow Up With When Contact Information ALLA KUHN, Orthopedic Surgery Within 3 to 5 [address] [address] [facility] (1) Additional Instructions: Assessment This Visit Diagnosis [...] acute fr (more content not included)... 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 - [employer] 03-03 ED Triage FINANCE BUSINESS MANAGER - Text ED Triage FINANCE BUSINESS MANAGER Enter ed On: 03/03/2024 10:58 EDT Performed [...] EDT) Problems(Active) Bipolar 1 disorder (SNOMED CT :6697320290 ) Name of Problem: Bipolar 1 disorder ; Recorder: Monica Doll RN; Confirmation: Confirmed ; Classification: Patient/Family Stated ; Code: 2565240252 ; Contributor System: 3VR ; Last Updated: 06/10/2016 19:47 EST ; Life Cycle Date: 06/10/2016 ; Life Cycle Status: Active ; Vocabulary: SNOMED CT Crohns disease (SNOMED CT :2860250813 ) Name of Problem: Crohns disease ; Recorder: Zuleika Wagner RN; Confirmation: Confirmed ; Classification: Medical ; Code: 4956517002 ; Contributor System: 3VR ; Last Updated: 01/27/2017 19:25 EDT ; Life Cycle Date: 01/27/2017 ; Life Cycle Status: Active ; Vocabulary: SNOMED CT Methicillin resistant Staphylococcus aureus (SNOMED CT :776148965 ) Name of Problem: Methicillin resistant Staphylococcus aureus ; Recorder: SYSTEM; Confirmation: Confirmed ; Classification: Medical ; Code: 113686538 ; Last Updated: 09/20/2023 06:47 EST ; [...] patient. Opioid use disorder, Severe (SNOMED CT :771316291 ) Name of Problem: Opioid use disorder, Severe ; Recorder: ROBERT MENDOZA DO; Confirmation: Confirmed ; Classification: Medical ; Code: 466534571 ; Contributor System: 3VR ; Last Updated: 03/01/2017 15:02 EDT ; Life Cycle Status: Active ; Responsible Provider: ROBERT MENDOZA DO; Vocabulary: SNOMED CT Posttraumatic stress disorder (SNOMED CT :007848313 ) Name of Problem: Posttraumatic stress disorder ; Recorder: ROBERT MENDOZA DO; Confirmation: Confirmed ; Classification: Medical ; Code: 698302221 ; Contributor System: 3VR ; Last Updated: 03/01/2017 15:02 EDT ; Life Cycle Status: Active ; Responsible Provider: ROBERT MENDOZA DO; Vocabulary: SNOMED CT PTSD (post-traumatic stress disorder) (SNOMED CT :487146959 ) Name of Problem: PTSD (post-traumatic stress disorder) ; Recorder: Monica Doll RN; Confirmation: Confirmed ; Classification: Patient/Family Stated ; Code: 837356375 ; Contributor System: PowerChart ; Last Updated: 06/10/2016 19:47 EST ; Life Cycle Date: 06/10/2016 ; Life Cycle Status: Active ; Vocabulary: SNOMED CT Tobacco use disorder, Moderate (SNOMED CT :15180384 ) Name of Problem: Tobacco use disorder, Moderate ; Recorder: ROBERT MENDOZA DO; Confirmation: Confirmed ; Classification: Medical ; Code: 50735440 ; Contributor System: PowerChart ; Last Updated: 03/01/2017 15:03 EDT ; Life Cycle Status: Active ; Responsible Provider: ROBERT MENDOZA DO; Vocabulary: SNOMED CT Vancomycin resistant enterococcus (SNOMED CT :243041307 ) Name of Problem: Vancomycin resistant enterococcus ; Recorder: SYSTEM; Confirmation: Confirmed ; Classification: Medical ; Code: 759666730 ; Last Updated: 02/02/2016 06:33 EDT ; [...] PNED ; Probability: 0 ; Diagnosis Code: [id number] Reason for Visit (As Of: 03/03/2024 10:58:52 E (more content not included)... Normal [facility] XR KNEE LEFT 3 VIEWSon 03-03 [...] DOUGLAS MD Signed Out: 03/03/24 11:32:30 Normal [facility] 36on 02-11-2024 36 Recent Visits Date Type Provider Dept 01/11/24 Office Visit [facility] 11/12/23 Office Visit Roseline Thakkar DO [facility] Showing recent visits within past 365 days and meeting all other requirements Today's Visits Date Type Provider Dept 02/11/24 Appointment Roseline Thakkar DO [facility] Showing today's visits and meeting [...] BY THOROUGH WASHING. Provider: Roseline Thakkar DO [facility] [address] - [place], [place] - [address] [facility] [address] [facility] [address] [place], [place] - [address] [facility] [address] Verified pharmacy: yes Verified day(s) supplied: yes Verified refill(s) needed (previous prescription showing no refills in chart): Yes Have you received any controlled medications from any other provider? Overdue for visit: No If yes - patient scheduled? N/A Most recent labs completed in chart? N/A Normal [facility] Office Visiton 01-11-2024 Follow-up visit [id number] Kiana Hedrick 1970 F Date Provider Department Center 01/11/2024 [id number] ROCHA [facility] Family History Problem Relation Age of Onset [...] Alive Daughter Alive Sister Alive Level of Service:16399 [place] OFFICE/OUTPATIENT ESTABLISHED [facility] 10 MIN Reason for Visit and Comments: Neck Mass [804] - Lymph node, x 3 wks, bilateral, painful Normal [facility] Progress Noteon 01-11-2024 Progress Note [facility] [address] [facility] [address] [facility] [address] Dept: [phone] Dept Reason for Visit: Neck Mass (Lymph node, x 3 wks, bilateral, painful) Assessment and Plan 1. Lymphadenopathy, cervical - US head neck soft tissue Follow up if symptoms worsen or fail to improve. Subjective HPI Pt presents today for evaluation of lymph nodes in her neck. Was seen by the gate keeper and was told to follow up with [...] Any cillins per patient Prochlorperazine Unknown Sulfamethoxazole-Trimet [facility] Outpatient Medications Prior to Visit Medication Sig [...] History: Diagnosis Date SEGUNDO (acute kidney injury) (FORMERLY [facility]) 01/06/2016 Anxiety Asthma Bipolar disorder (HCC) Bipolar [...] note reviewed. Constitutional: (more content not included)... [facility] 36on 12-08-2023 36 Yes. No urgency. [facility] 36 Name of caller: Kiana ambrosio Contact phone number: [phone] Relationship to Patient: Patient Provider: Practice: [facility] Chief Complaint/Reason for Call: Patient called in regarding voicemail left. Patient stated she only can come in the afternoon, scheduled 12/15 with . Please advise. Best time of day caller can be reached: N/A Patient advised that office/PCP has 24-48 business hours to return their call: N/A [facility] 36 Sent mychart message [facility] 36 Left message on patient's voicemail asking her to call back and schedule an office visit. If patient calls, please schedule first available 20 OV. [facility] 36 20 fine. [facility] 36on 12-07-2023 36 That's fine. [facility] 36 Name of caller: Ramon her Contact phone number: [phone] Relationship to Patient: [facility] Provider: Dr. Thakkar Practice: [facility] Chief Complaint/Reason for Call: (pt was not on the line to triage) PT was seen downstairs at [facility] today and it was discovered that pt has palpable lymph nodes and was advised to be seen immediately. The office states they can fax any clinical documentation if need be. Please advise pt on next steps. Best time of day caller can be reached: any Patient advised that office/PCP has 24-48 business hours to return their call: Yes [facility] Clinical Interventi ons-Texton 09-21-2023 Pharmacy Clinical [...] / HR: see results callback worklist Joanne Morlye RPh - 09/21/2023 9:47 EST [facility] 09-20-[address] [facility] pt of Laboratory Services [address] [place] [address] Name: KAMLA HEDRICK : 1970 Admitting Provider: Gender Female Financial [id number] : Number: Danyell ORTEZ; Intake 2; 1 [...] RYLEY October Print 09/20/2023 09:49 EST [facility] [address] [place] [address] [phone] Name: RYLEY October : 1970 Admitting Provider: Gender Female Financial [id number] : Number: Danyell ORTEZ; Intake 2; 1 [...] October Print 09/20/2023 09:49 EST Date/Time: Normal [facility] Comment on above: Performed By: #### 9 [id number] ####[facility] [id number] [place] [address] Medical Director: Demetrio Rodrigez MD Pharmacy Clinical [...] Morley RPh - 09/20/2023 11:02 EST Normal [facility] ED Adult Data - Texton 09-16 [...] EST) Problems(Active) Bipolar 1 disorder (SNOMED CT :8720878451 ) Name of Problem: Bipolar 1 disorder ; Recorder: Monica Dlol RN; Confirmation: Confirmed ; Classification: Patient/Family Stated ; Code: 6808622121 ; Contributor System: 3VR ; Last Updated: 06/10/2016 19:47 EST ; Life Cycle Date: 06/10/2016 ; Life Cycle Status: Active ; Vocabulary: SNOMED CT Crohns disease (SNOMED CT :0644435968 ) Name of Problem: Crohns disease ; Recorder: Zuleika Wagner RN; Confirmation: Confirmed ; Classification: Medical ; Code: 1666273971 ; Contributor System: 3VR ; Last Updated: 01/27/2017 19:25 EDT ; Life Cycle Date: 01/27/2017 ; Life Cycle Status: Active ; Vocabulary: SNOMED CT Opioid use disorder, Severe (SNOMED CT :855977245 ) Name of Problem: Opioid use disorder, Severe ; Recorder: ROBERT MENDOZA DO; Confirmation: Confirmed ; Classification: Medical ; Code: 584106470 ; Contributor System: 3VR ; Last Updated: 03/01/2017 15:02 EDT ; Life Cycle Status: Active ; Responsible Provider: ROBERT MENDOZA DO; Vocabulary: SNOMED CT Posttraumatic stress disorder (SNOMED CT :569231538 ) Name of Problem: Posttraumatic stress disorder ; Recorder: ROBERT MENDOZA DO; Confirmation: Confirmed ; Classification: Medical ; Code: 763488610 ; Contributor System: 3VR ; Last Updated: 03/01/2017 15:02 EDT ; Life Cycle Status: Active ; Responsible Provider: ROBERT MENDOZA DO; Vocabulary: SNOMED CT PTSD (post-traumatic stress disorder) (SNOMED CT :175386978 ) Name of Problem: PTSD (post-traumatic stress disorder) ; Recorder: Monica Doll RN; Confirmation: Confirmed ; Classification: Patient/Family Stated ; Code: 023460111 ; Contributor System: 3VR ; Last Updated: 06/10/2016 19:47 EST ; Life Cycle Date: 06/10/2016 ; Life Cycle Status: Active ; Vocabulary: SNOMED CT Tobacco use disorder, Moderate (SNOMED CT :86747925 ) Name of Problem: Tobacco use disorder, Moderate ; Recorder: ROBERT MENDOZA DO; Confirmation: Confirmed ; Classification: Medical ; Code: 45590429 ; Contributor System: 3VR ; Last Updated: 03/01/2017 15:03 EDT ; Life Cycle Status: Active ; Responsible Provider: ROBERT MENDOZA DO; Vocabulary: SNOMED CT Vancomycin resistant enterococcus (SNOMED CT :305666632 ) Name of Problem: Vancomycin resistant enterococcus ; Recorder: SYSTEM; Confirmation: Confirmed ; Classification: Medical ; Code: 340681014 ; Last Updated: 02/02/2016 06:33 EDT ; [...] PNED ; Probability: 0 ; Diagnosis Code: [id number] Procedure History ED Devices Present on Arrival [...] 09/17/2023 18:3 (more content not included)... Normal [facility] ED Discharge Educationon ED Discharge Education Dermatology Folliculitis: Care Instructions Overview Folliculitis (say dku-SNH-cdg-LY-tus) is an inflammation of the pouches (follicles) [...] Where can you learn more? Go to https://www.Affine. net/patientEd Enter M257 in the search box to learn more about Folliculitis: Care Instructions. Current as of: June 02, 2021 Content Version: 13.3 ? [employer]. Care instructions adapted under license by your healthcare professional. If you have questions about a medical condition or this instruction, always ask your healthcare professional. [employer] disclaims any warranty or liability for your [...] of fluids you drink. ? Take an hyyz-hdi-edvoscj pain medicine, such as acetaminophen (Tylenol), ibuprofen (Advil, Motrin), or naproxen (Aleve). Read and follow all instructions on the label. ? Do not take two or more pain medicines at the same time unless the (more content not included)... Normal [facility] ED Emergency Severity Index Adult-Texton 09-17-2023 ED Emergency Severity Index Adult-Text AIDEN - Adult Entered On: 09/17/2023 18:30 EST Performed On: 09/17/2023 18:25 EST by Agustina Goodman RN DCP GENERIC CODE Visit Reason : swollen lymph/glands, sent from Tracking Triage Date/Time : 09/17/2023 18:30 EST Tracking Reg Status : Requested Tracking Acuity : [id number] Tracking Group : Agustina Alba RN - 09/17/2023 18:30 EST Normal [facility] ED Nrsing Adlt Triage Sep Sc rning - Texton 09-17-2023 ED Nrsing Adlt Triage Sep Scrning - Text ED Nursing Adult Triage Sepsis Screening Tool Entered On: 09/17/2023 18:30 EST Performed On: 09/17/2023 18:25 EST by Agustina Goodman RN Adult Sepsis Screening Sepsis Infection Screening ED : No Agustina Goodman RN - 09/17/2023 18:30 EST Normal [facility] ED Patient Summaryon 024 ED Patient Summary [facility] Emergency Department Discharge Instructions [address] [place] [address] (Patient Copy) Name: RYLEY October : 1970 Allergies: penicillins; naproxen; ibuprofen; doxycycline; Compazine; Bactrim Diagnosis: Bacterial folliculitis; Cervical lymphadenopathy; Skin lesion of scalp Visit Date: 09/17/2023 18:21:46 Current Date Time: 09/17/2023 19:07:16 Address: [address] [place] [address] Primary Care Provider: Name: ROBY SENA Emergency Department Care Providers: Primary Physician: CARLTON SOTO MD Thank you for choosing [facility] for your emergency care. You are very important to us. Our goal is to demonstrate our high quality medical care, and provide you with a very good patient experience. You may receive a survey about our service. Please take the time to complete the survey and return it so we can continue to enhance our service. Thank you again for allowing the [facility] Emergency Department to care for your medical needs. If you have questions about your care or follow up information please contact us at [phone]. Follow-Up Instructions KAMLA HEDRICK has been given these follow-up instructions: With: Address: When: SHIRA RIDER DR NOT ON STAFF [address] [facility] [address] [place] [phone] Within 3 to 5 days Patient Education [...] of fluids you drink. ? Take an lotc-mtp-obetuax pain medicine, such as acetaminophen (Tylenol), ibuprofen [...] Where can you learn more? Go to https://www.Affine. net/patientEd Enter A919 in the search box to learn more about Swollen Lymph Nodes: Care Instructions. Current as of: August 27, 2021 Content Version: 13.3 ? [employer]. Care instructions adapted under license by your healthcare professional. If you have questions about a medical condition or this instruction, always ask your healthcare professional. [employer] disclaims any warranty or liability for your use of this information. Folliculitis: Care Instructions Overview Folliculitis (say chr-RWZ-nvw-LY-tus) is an inflammation of the pouches (follicles) in the skin where hair grows. It can occur on any part of the body, but it is most common on the scalp, face, armpits, and groin. Bacteria, (more content not included)... Normal [facility] ED Physician Reporton 2023 ED Physician [...] she went to the urgent care in [facility] because she felt a lump on the [...] ON STAFF Within 3 to [address] [place] [address]- Additional Instructions: Assessment This Visit Diagnosis [...] capsule)1 Capsu (more content not included)... Normal [facility] ED Progress Noteon ED Progress Note [...] steady gait out to private vehicle. Normal [facility] ED Triage Adult-Texton 09-16 ED Triage Adult-Text ED Triage Entered O n: 09/17/2023 18:33 EST Performed On: 09/17/2023 18:25 EST by Agustina Goodman RN Triage (As Of: 09/17/2023 18:33:32 EST) Problems(Active) Bipolar [address] disorder ([address] :1779491344 ) Name of Problem: Bipolar 1 disorder ; Recorder: Monica Doll RN; Confirmation: Confirmed ; Classification: Patient/Family Stated ; Code: 4931999397 ; Contributor System: SapheonChart ; Last Updated: 06/10/2016 19:47 EST ; Life Cycle Date: 06/10/2016 ; Life Cycle Status: Active ; Vocabulary: SNOMED CT Crohns disease (SNOMED CT :2347339041 ) Name of Problem: Crohns disease ; Recorder: Zuleika Wagner RN; Confirmation: Confirmed ; Classification: Medical ; Code: 3066753615 ; Contributor System: PowerChart ; Last Updated: 01/27/2017 19:25 EDT ; Life Cycle Date: 01/27/2017 ; Life Cycle Status: Active ; Vocabulary: SNOMED CT Opioid use disorder, Severe (SNOMED CT :871004073 ) Name of Problem: Opioid use disorder, Severe ; Recorder: ROBERT MENDOZA DO; Confirmation: Confirmed ; Classification: Medical ; Code: 955785251 ; Contributor System: PowerChart ; Last Updated: 03/01/2017 15:02 EDT ; Life Cycle Status: Active ; Responsible Provider: ROBERT MENDOZA DO; Vocabulary: SNOMED CT Posttraumatic stress disorder (SNOMED CT :546084681 ) Name of Problem: Posttraumatic stress disorder ; Recorder: ROBERT MENDOZA DO; Confirmation: Confirmed ; Classification: Medical ; Code: 303665682 ; Contributor System: 3VR ; Last Updated: 03/01/2017 15:02 EDT ; Life Cycle Status: Active ; Responsible Provider: ROBERT MENDOZA DO; Vocabulary: SNOMED CT PTSD (post-traumatic stress disorder) (SNOMED CT :811933636 ) Name of Problem: PTSD (post-traumatic stress disorder) ; Recorder: Monica Doll RN; Confirmation: Confirmed ; Classification: Patient/Family Stated ; Code: 393303696 ; Contributor System: 3VR ; Last Updated: 06/10/2016 19:47 EST ; Life Cycle Date: 06/10/2016 ; Life Cycle Status: Active ; Vocabulary: SNOMED CT Tobacco use disorder, Moderate (SNOMED CT :87092299 ) Name of Problem: Tobacco use disorder, Moderate ; Recorder: ROBERT MENDOZA DO; Confirmation: Confirmed ; Classification: Medical ; Code: 32943839 ; Contributor System: SapheonChart ; Last Updated: 03/01/2017 15:03 EDT ; Life Cycle Status: Active ; Responsible Provider: ROBERT MENDOZA DO; Vocabulary: SNOMED CT Vancomycin resistant enterococcus (SNOMED CT :639064650 ) Name of Problem: Vancomycin resistant enterococcus ; Recorder: SYSTEM; Confirmation: Confirmed ; Classification: Medical ; Code: 137222424 ; Last Updated: 02/02/2016 06:33 EDT ; [...] PNED ; Probability: 0 ; Diagnosis Code: [id number] (As Of: 09/17/2023 18:33:32 EST) Allergies (Active) [...] doxycycline ; Type: Allergy ; Updated By: Ramya Metzger RN; Reviewed Date: 09/17/2023 18:32 EST [...] bpm Respiratory (more content not included)... Normal [facility] CNOVon 06-25-2023 CNOV Office Visit (UCWSTR ) RYLEY,OCTOBER ([id number]) 1970 F Date Time Provider Department 06/25/23 4:45 PM ASHLEE IYER [facility] During your visit today, we recorded the following information about you: Temperature Pulse Respiration Blood pressure 97.8 degrees 75/minute 20/minute 109/70 Weight 77.1 kg Ashlee Iyer APRN.LEAN MANUFACTURING SPECIALIST 06/25/2023 5:27 PM Signed Subjective HPI October [...] Follow up if itching continues Ashlee Iyer APRN.LEAN MANUFACTURING SPECIALIST Allergies As of Date: 06/25/2023 Noted Allergy [...] Encounter Status:Closed by ASHLEE IYER on 06/25/23 [facility] 05-12-2023 CN Office Visit (UCWSTR ) RYLEY ([id number]) 1970 F Date Time Provider Department 05/12/23 3:30 PM JEN GORE [facility] During your visit today, we recorded the [...] - PREDNISONE 10 MG TABLET Jen Gore APRN.LEAN MANUFACTURING SPECIALIST Allergies As of Date: 05/12/2023 Noted Allergy [...] Date Reviewed: 05/12/2023 Reviewed by: Jen Gore APRN.LEAN MANUFACTURING SPECIALIST - Fully Assessed Reason for Visit: Cough [28] Cmt: LACY, coughing up mucus, chest feels heavy x 2.5 weeks Primary Visit Diagnosis:Acute cough [R05.1] Other Visit Diagnosis:History of asthma [Z87.09] Order(s):XR CHEST 2V FRONTAL/LAT [[id number]] Order #: [id number]. #:[id number] predniSONE (DELTASONE) 10 mg tabletTake 4 tabs [...] Status:Closed by JEN GORE on 05/12/23 Normal [facility] XR CHEST 2V FRONTAL/LATon XR CHEST [...] upper quadrant. IMPRESSION: No acute radiographic abnormality. Heavy Equipment Service Technician: SHAILESH Transcribe Date/Time: May 12 2023 4:07P Dictated by : LENARD JOSE MD This examination was interpreted and the report reviewed and electronically signed by: LENARD JOSE MD on May 12 2023 4:08PM EST [id number] Normal [facility] XR Chest PA and Lateralon IMPRESSION: No acute radiographic abnormality. Heavy Equipment Service Technician: PSCB Transcribe Date/Time: May 12 2023 4:07P [...] right upper quadrant. DIVISION OF RADIOLOGY Provider, [facility] - 05/12/2023 * * *Final Report* * [...] quadrant. IMPRESSION IMPRESSION: No acute radiographic abnormality. Heavy Equipment Service Technician: SHAILESH Transcribe Date/Time: May 12 2023 4:07P Dictated by : LENARD JOSE MD This examination was interpreted and the report reviewed and electronically signed by: LENARD JOSE MD on May 12 2023 4:08PM EST [facility] Radiology Study observation (narrative) [facility] XR Chest PA and LateralOrder ed By: Ccf Provider on 05-12-2023 [facility] HBV surface Ag Ser Qlon 03-19 HBV surface Ag Ql (S) Negative Normal Negative [facility] Comment on above: Order Comment: Speci men Type: BLOOD SPECIMEN Ordering Facility: [facility] Address: [address] [place] [address] Performed By: #### 5 195-3, 83528-4, 44359-3 #### [facility] CLIA [id number] [address] [place] [address] [place] HCV Ab Ser Qlon 04-05-2023 HCV Ab Ql (S) Positive Abnormal Negative [facility] Comment on above: Order Comment: Speci men Type: BLOOD SPECIMEN Ordering Facility: [facility] Address: [address] [place] [address] Performed By: #### 1 6128-1, 74649-8 #### [facility] CLIA [id number] [address] [place] [address] [place] HCV RNA SerPl FRED+probe-aCnc on 04-05-2023 HCV RNA FRED+probe Qn Not detected Normal HCV RNA not detected by PCR. [facility] Comment on above: Order Comment: Speci men Type: BLOOD SPECIMEN Ordering Facility: [facility] Address: [address] [place] [address] Performed By: #### 1 6128-1, 90580-5 #### [facility] CLIA [id number] [address] [place] [address] [place] HIV 1+2 Ab IA Qlon 3 HIV 1 and 2 Ab IA.rapid Nom Normal [facility] Comment on above: Order Comment: Speci men Type: BLOOD SPECIMEN Ordering Facility: [facility] Address: [address] [place] [address] Result Comment: Test not indicated. Performed By: #### 5 195-3, 98074-6, 69442-9 #### [facility] CLIA [id number] [address] [place] [address] [place] HIV 1+2 Ab+HIV1 p24 Ag IA Ql Non-Reactive Normal Nonreactive [facility] Comment on above: Order Comment: Speci men Type: BLOOD SPECIMEN Ordering Facility: [facility] Address: [address] [place] [address] Performed By: #### 5 195-3, 17684-8, 86816-4 #### [facility] CLIA [id number] [address] [place] [address] [place] HIV immunoassay testing algorithm interpretation (S/P/Bld) [Interp] Normal [facility] Comment on above: Order Comment: Speci men Type: BLOOD SPECIMEN Ordering Facility: [facility] Address: [address] [place] [address] Result Comment: No e vidence of HIV-1 or HIV-2 infection. Should recent infection be suspected, repeat testing may be considered 2-3 weeks after this draw. [place] Rev. Code 3701.243(E): This information has been [...] or diagnoses. Performed By: #### 5 195-3, 88095-4, 45343-3 #### [facility] CLIA [id number] [address] [place] [address] [place] HPV W/GENOTYPE THIN PREPon 0 04-05-2023 HPV 16 Ag Ql (Unsp spec) Negative Normal Negative for HPV DNA high risk type 16 by PCR [facility] Comment on above: Order Comment: Speci men Type: FLUID SPECIMEN Ordering Facility: [facility] Address: [address] [place] [address] Performed By: #### H PVHRT #### [facility] CLIA [id number] [address] [place] [address] [place] HPV 18 Ag Ql (Unsp spec) Negative Normal Negative for HPV DNA high risk type 18 by PCR [facility] Comment on above: Order Comment: Speci men Type: FLUID SPECIMEN Ordering Facility: [facility] Address: [address] [place] [address] Performed By: #### H PVHRT #### [facility] CLIA [id number] [address] [place] [address] [place] HPV 31+33+35+39+45+51+52+ 56+58+59+66+68 DNA FRED+probe Ql (Cvx) Negative for HPV DNA high risk types: 31,33,35,39,45,51,52,56 ,58,59,66,68 by PCR. Normal Negative for HPV DNA high risk types: 31,33,35,39,4 5,51,52,56,58 ,59,66,68 by PCR. [facility] Comment on above: Order Comment: Speci men Type: FLUID SPECIMEN Ordering Facility: [facility] Address: [address] [place] [address] Performed By: #### H PVHRT #### [facility] CLIA [id number] [address] [place] [address] [place] PAP TESTon 04-05-2023 ADEQUACY Normal [facility] Comment on above: Order Comment: Speci men Type: FLUID SPECIMEN Ordering Facility: [facility] Address: [address] [place] [address] Result Comment: Sati sfactory for interpretation No endocervical component Performed By: #### L [id number] #### [facility] CLIA [id number] [address] [place] [address] [place] CASE REPORT Normal [facility] Comment on above: Order Comment: Speci men Type: FLUID SPECIMEN Ordering Facility: [facility] Address: [address] [place] [address] Result Comment: Gyne cologic Cytology Report Case: [id number] Authorizing Provider: Susan Herrera NP Collected: 04/05/2023 02:30 PM Ordering Location: [facility] Received: 04/06/2023 09:57 AM First Screen: Mohorcic, Stefani, CT, ASCP Specimen: Pap Test, ThinPrep, Cervix Performed By: #### L [id number] #### [facility] CLIA [id number] [facility] [place] [address] [place] CLINICAL HISTORY, CYTOLOGY, CORROSION ENGINEER Routine Exam Normal [facility] Comment on above: Order Comment: Speci men Type: FLUID SPECIMEN Ordering Facility: [facility] Address: [address] [place] [address] Result Comment: Prev ious pap date: 2019 Performed By: #### L [id number] #### [facility] CLIA [id number] [address] [place] [address] [place] CYTOLOGY PAP OTHER INT Predominance of coccobacilli consistent with shift in vaginal pretty Normal [facility] Comment on above: Order Comment: Speci men Type: FLUID SPECIMEN Ordering Facility: [facility] Address: [address] [place] [address] Performed By: #### L [id number] #### [facility] CLIA [id number] [address] [place] [address] [place] FINAL PERFORMING LAB Normal [facility] Comment on above: Order Comment: Speci men Type: FLUID SPECIMEN Ordering Facility: [facility] Address: [address] [place] [address] Result Comment: Tech nical component, four slide operator screening performed at [facility], [address] [place] [address] CLIA# [id number] Diagnostic interpretation performed at [facility], [address] [place] [address] [place] [address] CLIA# [id number] Bark Grinder: Carlos Medeiros M.D. Performed By: #### L [id number] #### [facility] CLIA [id number] [address] [place] [address] [place] HPV REFLEX Yes HPV Normal [facility] Comment on above: Order Comment: Speci men Type: FLUID SPECIMEN Ordering Facility: [facility] Address: [address] [place] [address], [place] [address] Performed By: #### L [id number] #### [facility] CLIA [id number] [address] [address] [place] INTERPRETATION, CYTOLOGY, CORROSION ENGINEER Normal [facility] Comment on above: Order Comment: Speci men Type: FLUID SPECIMEN Ordering Facility: [facility] Address: [address] [place] [address] Result Comment: Nega tive for intraepithelial lesion or malignancy. Performed By: #### L [id number] #### [facility] CLIA [id number] [address] [place] [address] [place] LMP 08/2022 Normal [facility] Comment on above: Order Comment: Speci men Type: FLUID SPECIMEN Ordering Facility: [facility] Address: [address] [place] [address] Performed By: #### L [id number] #### [facility] CLIA [id number] [address] [place] [address] [place] PAP DISCLAIMER COMMENT The Pap Smear is a screening test for cervical cancer. False negative results occur with all screening tests, emphasizing the need for rescreening at recommended intervals, and clinical correlation. Normal [facility] Comment on above: Order Comment: Speci men Type: FLUID SPECIMEN Ordering Facility: [facility] Address: [address] [place] [address] Performed By: #### L [id number] #### [facility] CLIA [id number] [address] [place], [place] [id number] [place] PAP BRAZING MACHINE OPERATOR HELPER COMMENT This specimen has be en analyzed by the ThinPrep Imaging System, an automated imaging and review system, which assists the laboratory in evaluating cells on ThinPrep Pap tests. Following automated imaging, selected arriola from every slide are reviewed by a four slide operator. Normal [facility] Comment on above: Order Comment: Speci men Type: FLUID SPECIMEN Ordering Facility: [facility] Address: [address] [place] [address], [place] [address] Performed By: #### L [id number] #### [facility] CLIA [id number] [address] [place] [address] [place] Reagin and Treponema pallidu m IgG and IgM [Interp]on 04-05-2023 T. pallidum IgG+IgM IA Ql (S) Non-Reactive Normal Nonreactive [facility] Comment on above: Order Comment: Speci men Type: BLOOD SPECIMEN Ordering Facility: [facility] Address: [address] [place] [address], [place] [address] Performed By: #### 5 195-3, 45814-4, 41991-0 #### [facility] CLIA [id number] [address] [place] [address] [place] Reagin+T pallidum IgG+IgM Se rPl-Impon 04-05-2023 Reagin and Treponema pallidum IgG and IgM [Interp] Cannot exclude recent Treponemal infection if specimen collected within 7-10 days after appearance of suspect lesions or 2-3 weeks after an exposure. Clinical correlation is required. Normal [facility] Comment on above: Order Comment: Speci men Type: BLOOD SPECIMEN Ordering Facility: [facility] Address: [address] [place] [address], [place] [id number] Performed By: #### 5 195-3, 83195-8, 13278-4 #### [facility] CLIA [id number] [address] [place] [address] [place] Basic Metabolic Profile (BMP )on 03-02-2023 BUN/CRE 9.2 RATIO Low 10-20 [facility] Comment on above: Performed By: #### L 500.2500 ####[facility] [address] [place], [place], [id number] [place],Total 8.1 mg/dL Low 8.5-10.1 [facility] Comment on above: Performed By: #### L 500.2500 ####[facility] [address] [place], [address] Chloride [Moles/Vol] 117 mmol/L High 98-107 [facility] Comment on above: Performed By: #### L 500.2500 ####[facility] [address] [place], [address] CO2 [Moles/Vol] 22.0 mmol/L Normal 21.0-32.0 [facility] Comment on above: Performed By: #### L 500.2500 ####[facility] [address] [place], [address] Creatinine [Mass/Vol] 0.76 mg/dL Normal 0.55-1.02 [facility] Comment on above: Result Comment: The validity of the calculated GFR GFRAA in patients over 70 years has not been determined. Clinical correlation is essential. Performed By: #### L 500.2500 ####[facility] [address] [place], [address] ECRCL 82.90 ml/min Normal [facility] Comment on above: Performed By: #### L 500.2500 ####[facility] [address] [place], [address] EST GFR - AA 104 mL/min Normal >60 [facility] Comment on above: Result Comment: Afri can [place] GFR Calc Performed By: #### L 500.2500 ####[facility] [address] [place], [address] GAP 4 Low 5-15 [facility] Comment on above: Performed By: #### L 500.2500 ####[facility] [address] [place], [address] GFR/1.73 sq M.predicted among non-blacks MDRD (S/P/Bld) [Vol rate/Area] 86 mL/min/{1.73_m2} Normal >60 [facility] Comment on above: Result Comment: Non- GFR Calc Performed By: #### L 500.2500 ####[facility] [address] [place], [address] Glucose [Mass/Vol] 106 mg/dL Normal 74-106 [facility] Comment on above: Result Comment: Fast ing Glucose result from 100 to 125 mg/dL suggests IMPAIRED HOMEOSTASIS per A.D.A. criteria. Performed By: #### L 500.2500 ####[facility] [address] [place], [address] Potassium [Moles/Vol] 4.0 mmol/L Normal 3.5-5.1 [facility] Comment on above: Performed By: #### L 500.2500 ####[facility] [address] [place], [address] Sodium [Moles/Vol] 143 mmol/L Normal 136-145 [facility] Comment on above: Performed By: #### L 500.2500 ####[facility] [address] [place], [address] Urea nitrogen [Mass/Vol] 7 mg/dL Normal 7-18 [facility] Comment on above: Performed By: #### L 500.2500 ####[facility] [address] [place], [address] Basophil percentageOrdered B y: Taylor Alarcon on 03-02-2023 Chloride [Moles/Vol] 117 mmol/L 98-107 [facility] Glucose [Mass/Vol] 106 mg/dL 74-106 [facility] Comment on above: Fasting Glucose resu lt from 100 to 125 mg/dL suggests IMPAIRED HOMEOSTASIS per A.D.A. criteria. Potassium [Moles/Vol] 4.0 mmol/L 3.5-5.1 [facility] Sodium [Moles/Vol] 143 mmol/L 136-145 [facility] - Chemistry and C hemistry - challengeOrdered By: Taylor Alarcon on 03-02-2023 CO2 [Moles/Vol] 22.0 mmol/L 21.0-32.0 [facility] Urea nitrogen/Creatinine [Mass ratio] 9.2 mg/mg 10-20 [facility] Miscellaneous Lab Procedureo n 03-02-2023 [facility] Normal [facility] Comment on above: Order Comment: [id number] HEP C CONFIRMATION, SERUM, FROZEN Result Comment: TEST RESULT LIMITS HCV RNA Diagnosis, FRED HCV RNA, Quantitation HCV Not Detected IU/mL No evidence of active HCV infection. Test Information: The quantitative range of this assay is 15 IU/mL to 100 million IU/mL. TESTING PERFORMED AT [facility]. ORIGINAL REPORT ON FILE IN LAB CONTAINS ADDITIONAL TEST SITE INFORMATION. Performed By: #### L 3890.6200, L3890.6100, L801.1541, L3890.6300 #### [facility] [address] [place], [address] No Panel InformationOrdered By: Taylor Alarcon on 03-02-2023 Estimated Creatinine Clearance Calc 82.90 ml/min [facility] Estimated GFR (MDRD) Amer 104 mL/min >60 [facility] Comment on above: GFR Calc Estimated GFR (MDRD) Non-Af Amer 86 mL/min >60 [facility] Comment on above: Non- GFR Calc Serum or plasma calcium alice urement (mass/volume)Ordered By: Taylor Alarcon on 03-02-2023 Calcium [Mass/Vol] 8.1 mg/dL 8.5-10.1 [facility] Serum or plasma creatinine m easurement (mass/volume)Ordered By: Taylor Alarcon on 03-02-2023 Creatinine [Mass/Vol] 0.76 mg/dL 0.55-1.02 [facility] Comment on above: The validity of the calculated GFR & GFRAA in patients over 70 years has not been determined. Clinical correlation is essential. Serum or plasma urea nitroge n measurement (mass/volume)Ordered By: Taylor Alarcon on 03-02-2023 Urea nitrogen [Mass/Vol] 7 mg/dL 02-02 [facility] Thin prep Papanicolaou smear with manual screeningOrdered By: Taylor Alarcon on 03-02-2023 Thin prep Papanicolaou smear with manual screening 11-30 [facility] 12 Lead EKGon 03-01-2023 12 Lead EKG [facility] [address] [place] [address] 12 Lead EKG 03/01/23 0427 MR#: [id number] Acct: [id number] Name: RYLEYOctober Rep #: [id number] : 1970 52 From: Rachelle Lopez MD Attending Dr: Dr. Taylor Alarcon DO Status: DIS I NO Ordering Dr: Kristen Caraballo MD Date: 03/01/23 Location: [facility] Sex: F AA Admitted: 03/01/23 Test Reason [...] previous ECGs available Confirmed by RACHELLE LOPEZ ([id number]), technical editor ARIANA NOEL ([id number]) on 03/09/2023 9:40:37 AM Referred By: AW Confirmed By:RACHELLE LOPEZ 03/09/23 0940 Date Rachelle Lopez MD CC: Dr. Kristen Carabalol MD; Dr. Shira Rider MD; Dr. Taylor Alarcon DO Signed Normal [facility] Absolute lymphocyte countOrd ered By: Fabio Mcbride on 03-01-2023 Lymphocytes Auto (Unsp spec) [#/Vol] 2.09 10*3/uL 0.83-4.51 [facility] Alcohol, Blood (Medical)-Ser umon 03-01-2023 SERUM ETOH < 3.0 Normal [facility] Comment on above: Result Comment: The serum:whole blood ethanol ratio is approximately 1.14 and varies slightly with hematocrit. Medical Alcohol reference interval and critical value in non-tolerant individuals; 50 - 100 Impairment 100 Intoxication 100 - 250 Severe Poisoning 250 - 400 Deep/possible fatal coma Performed By: #### L 700.6800, L505.5000, L500.2500, L100.0100, L501.9100 ####[facility] [address] [place], [address] Basic Metabolic Profile (BMP )on 03-01-2023 BUN/CRE 11.8 RATIO Normal 10-20 [facility] Comment on above: Performed By: #### L 700.6800, L505.5000, L500.2500, L100.0100, L501.9100 ####[facility] [address] [place], [address] [place],Total 9.0 mg/dL Normal 8.5-10.1 [facility] Comment on above: Performed By: #### L 700.6800, L505.5000, L500.2500, L100.0100, L501.9100 ####[facility] [address] [place], [address] Chloride [Moles/Vol] 110 mmol/L High 98-107 [facility] Comment on above: Performed By: #### L 700.6800, L505.5000, L500.2500, L100.0100, L501.9100 ####[facility] [address] [place], [address] CO2 [Moles/Vol] 31.0 mmol/L Normal 21.0-32.0 [facility] Comment on above: Performed By: #### L 700.6800, L505.5000, L500.2500, L100.0100, L501.9100 ####[facility] [address] [place], [place], [id number] Creatinine [Mass/Vol] 0.93 mg/dL Normal 0.55-1.02 [facility] Comment on above: Result Comment: The validity of the calculated GFR GFRAA in patients over 70 years has not been determined. Clinical correlation is essential. Performed By: #### L 700.6800, L505.5000, L500.2500, L100.0100, L501.9100 ####[facility] [address] [place], [address] ECRCL 65.12 ml/min Normal [facility] Comment on above: Performed By: #### L 700.6800, L505.5000, L500.2500, L100.0100, L501.9100 ####[facility] [address] [place], [address] EST GFR - AA 82 mL/min Normal >60 [facility] Comment on above: Result Comment: Afri can [place] GFR Calc Performed By: #### L 700.6800, L505.5000, L500.2500, L100.0100, L501.9100 ####[facility] [address] [place], [address] GAP 4 Low 5-15 [facility] Comment on above: Performed By: #### L 700.6800, L505.5000, L500.2500, L100.0100, L501.9100 ####[facility] [address] [place], [place], [id number] GFR/1.73 sq M.predicted among non-blacks MDRD (S/P/Bld) [Vol rate/Area] 67 mL/min/{1.73_m2} Normal >60 [facility] Comment on above: Result Comment: Non- GFR Calc Performed By: #### L 700.6800, L505.5000, L500.2500, L100.0100, L501.9100 ####[facility] [address] [place], [address] Glucose [Mass/Vol] 155 mg/dL High 74-106 [facility] Comment on above: Result Comment: Fast ing Glucose result greater than or equal to 126 mg/dL suggests DIABETES MELLITUS per A.D.A. criteria. Performed By: #### L 700.6800, L505.5000, L500.2500, L100.0100, L501.9100 ####[facility] [address] [place], [address] Potassium [Moles/Vol] 3.2 mmol/L Low 3.5-5.1 [facility] Comment on above: Performed By: #### L 700.6800, L505.5000, L500.2500, L100.0100, L501.9100 ####[facility] [address] [place], [address] Sodium [Moles/Vol] 145 mmol/L Normal 136-145 [facility] Comment on above: Performed By: #### L 700.6800, L505.5000, L500.2500, L100.0100, L501.9100 ####[facility] [address] [place], [address] Urea nitrogen [Mass/Vol] 11 mg/dL Normal 7-18 [facility] Comment on above: Performed By: #### L 700.6800, L505.5000, L500.2500, L100.0100, L501.9100 ####[facility] [address] [place], [address] Basophil percentageOrdered B y: Kristen White on 03-01-2023 Bilirubin [Mass/Vol] 0.50 mg/dL 0.20-1.00 [facility] Comment on above: For patients on eltr ombopag therapy, use of Dimension [place] TBIL is not recommended. Protein [Mass/Vol] 6.1 g/dL 6.4-8.2 [facility] Bilirubin [Mass/Vol] 0.70 mg/dL 0.20-1.00 [facility] Comment on above: For patients on eltr ombopag therapy, use of Dimension [place] TBIL is not recommended. Protein [Mass/Vol] 7.2 g/dL 6.4-8.2 [facility] Basophil percentageOrdered B y: Fabio Mcbride on 03-01-2023 Basophils/100 WBC (Bld) 0.9 % 0-1 [facility] Chloride [Moles/Vol] 110 mmol/L 98-107 [facility] Eosinophils/100 WBC (Bld) 4.9 % 0-5 [facility] Glucose [Mass/Vol] 155 mg/dL 74-106 [facility] Comment on above: Fasting Glucose resu lt greater than or equal to 126 mg/dL suggests DIABETES MELLITUS per A.D.A. criteria. Neutrophils (Bld) [#/Vol] 3.5 10*3/uL 2.0-7.7 [facility] Neutrophils/100 WBC (Bld) 54.0 % 47-70 [facility] Potassium [Moles/Vol] 3.2 mmol/L 3.5-5.1 [facility] Sodium [Moles/Vol] 145 mmol/L 136-145 [facility] WBC (Bld) [#/Vol] 6.4 10*3/uL 4.4-11.0 [facility] Beta hCG serum qualOrdered B y: Fabio Mcbride on 03-01-2023 Beta HCG ( test) Ql Negative [facility] Blood erythrocytes count (nu mber/volume)Ordered By: Fabio Mcbride on 03-01-2023 RBC (Bld) [#/Vol] 3.91 10*6/uL 4.2-5.4 [facility] Blood hemoglobin measurement (mass/volume)Ordered By: Fabio Mcbride on 03-01-2023 Hemoglobin (Bld) [Mass/Vol] 11.2 g/dL 12.0-15.0 [facility] Blood lymphocytes/100 leukoc ytesOrdered By: Fabio Mcbride on 03-01-2023 Lymphocytes/100 WBC (Bld) 32.7 % 19-41 [facility] Blood monocytes/100 leukocyt esOrdered By: Fabio Mcbride on 03-01-2023 Monocytes/100 WBC (Bld) 7.2 % 0-10 [facility] Blood platelet mean volumeOr dered By: Fabio Mcbride on 03-01-2023 Platelet mean volume (Bld) [Entitic vol] 9.2 fL 6.2-12.0 [facility] CBC W/Diff, Automatedon 02-16 Absolute Lymph 2.09 X10 3/uL Normal 0.83-4.51 [facility] Comment on above: Performed By: #### L 700.6800, L505.5000, L500.2500, L100.0100, L501.9100 ####[facility] [address] [place], [address] Absolute Neut 3.5 X10 3/uL Normal 2.0-7.7 [facility] Comment on above: Performed By: #### L 700.6800, L505.5000, L500.2500, L100.0100, L501.9100 ####[facility] [address] [place], [address] Basophils/100 WBC (Bld) 0.9 % Normal 0-1 [facility] Comment on above: Performed By: #### L 700.6800, L505.5000, L500.2500, L100.0100, L501.9100 ####[facility] [address] [place], [address] Eosinophils/100 WBC (Bld) 4.9 % Normal 0-5 [facility] Comment on above: Performed By: #### L 700.6800, L505.5000, L500.2500, L100.0100, L501.9100 ####[facility] [address] [place], [address] Erythrocyte distribution width (RBC) [Ratio] 13.4 % Normal 11.6-14.6 [facility] Comment on above: Performed By: #### L 700.6800, L505.5000, L500.2500, L100.0100, L501.9100 ####[facility] [address] [place], [address] Hematocrit (Bld) [Volume fraction] 35.1 % Low 37-47 [facility] Comment on above: Performed By: #### L 700.6800, L505.5000, L500.2500, L100.0100, L501.9100 ####[facility] [address] [place], [address] Hemoglobin (Bld) [Mass/Vol] 11.2 g/dL Low 12.0-15.0 [facility] Comment on above: Performed By: #### L 700.6800, L505.5000, L500.2500, L100.0100, L501.9100 ####[facility] [address] [place], [address] IG% 0.300 Normal 0.0-0.9 [facility] Comment on above: Result Comment: IG% - Immature Granulocytes (promyelocytes, myelocytes and metamyelocytes) > 1% indicates that a LEFT SHIFT is Present. Performed By: #### L 700.6800, L505.5000, L500.2500, L100.0100, L501.9100 ####[facility] [address] [place], [address] Lymphocytes/100 WBC (Bld) 32.7 % Normal 19-41 [facility] Comment on above: Performed By: #### L 700.6800, L505.5000, L500.2500, L100.0100, L501.9100 ####[facility] [address] [place], [address] MCH (RBC) [Entitic mass] 28.6 pg Normal 27.0-32.0 [facility] Comment on above: Performed By: #### L 700.6800, L505.5000, L500.2500, L100.0100, L501.9100 ####[facility] [address] [place], [address] MCHC (RBC) [Mass/Vol] 31.9 g/dL Low 32-36 [facility] Comment on above: Performed By: #### L 700.6800, L505.5000, L500.2500, L100.0100, L501.9100 ####[facility] [address] [place], [address] MCV (RBC) [Entitic vol] 89.8 fL Normal 81-99 [facility] Comment on above: Performed By: #### L 700.6800, L505.5000, L500.2500, L100.0100, L501.9100 ####[facility] [address] [place], [address] Monocytes/100 WBC (Bld) 7.2 % Normal 0-10 [facility] Comment on above: Performed By: #### L 700.6800, L505.5000, L500.2500, L100.0100, L501.9100 ####[facility] [address] [place], [address] Neutrophils/100 WBC (Bld) 54.0 % Normal 47-70 [facility] Comment on above: Performed By: #### L 700.6800, L505.5000, L500.2500, L100.0100, L501.9100 ####[facility] [address] [place], [address] Nucleated RBC (Bld) [#/Vol] 0 10*3/uL Normal 0-5 [facility] Comment on above: Performed By: #### L 700.6800, L505.5000, L500.2500, L100.0100, L501.9100 ####[facility] [address] [place], [address] Platelet mean volume (Bld) [Entitic vol] 9.2 fL Normal 6.2-12.0 [facility] Comment on above: Performed By: #### L 700.6800, L505.5000, L500.2500, L100.0100, L501.9100 ####[facility] [address] [place], [address] Platelets (Bld) [#/Vol] 321 10*3/uL Normal 150-450 [facility] Comment on above: Performed By: #### L 700.6800, L505.5000, L500.2500, L100.0100, L501.9100 ####[facility] [address] [place], [address] RBC (Bld) [#/Vol] 3.91 10*6/uL Low 4.2-5.4 [facility] Comment on above: Performed By: #### L 700.6800, L505.5000, L500.2500, L100.0100, L501.9100 ####[facility] [address] [place], [address] RDW SD 43.7 fl Normal 35.1-43.9 [facility] Comment on above: Performed By: #### L 700.6800, L505.5000, L500.2500, L100.0100, L501.9100 ####[facility] [address] [place], [address] WBC (Bld) [#/Vol] 6.4 10*3/uL Normal 4.4-11.0 [facility] Comment on above: Performed By: #### L 700.6800, L505.5000, L500.2500, L100.0100, L501.9100 ####[facility] [address] [place], [address] Comprehensive Metabolic Prof idfransisco 03-01-2023 Albumin [Mass/Vol] 2.9 g/dL Low 3.2-5.0 [facility] Comment on above: Performed By: #### L 501.9985, L500.4050 ####[facility] [address] [place], [address] Albumin/Globulin [Mass ratio] 0.9 {ratio} Normal 0.9-2.4 [facility] Comment on above: Performed By: #### L 501.9985, L500.4050 ####[facility] [address] [place], [address] ALK P 70 U/L Normal 45-117 [facility] Comment on above: Performed By: #### L 501.9985, L500.4050 ####[facility] [address] [place], [address] ALT [Catalytic activity/Vol] 20 U/L Normal 13-56 [facility] Comment on above: Performed By: #### L 501.9985, L500.4050 ####[facility] [address] [place], [address] AST [Catalytic activity/Vol] 16 U/L Normal 15-37 [facility] Comment on above: Performed By: #### L 501.9985, L500.4050 ####[facility] [address] [place], [address] Bilirubin [Mass/Vol] 0.50 mg/dL Normal 0.20-1.00 [facility] Comment on above: Result Comment: For patients on eltrombopag therapy, use of Dimension [place] TBIL is not recommended. Performed By: #### L 501.9985, L500.4050 ####[facility] [address] [place], [address] BUN/CRE 13.5 RATIO Normal 10-20 [facility] Comment on above: Performed By: #### L 501.9985, L500.4050 ####[facility] [address] [place], [address] CA,Total 8.1 mg/dL Low 8.5-10.1 [facility] Comment on above: Performed By: #### L 501.9985, L500.4050 ####[facility] [address] [place], [address] Chloride [Moles/Vol] 113 mmol/L High 98-107 [facility] Comment on above: Performed By: #### L 501.9985, L500.4050 ####[facility] [address] [place], [address] CO2 [Moles/Vol] 27.0 mmol/L Normal 21.0-32.0 [facility] Comment on above: Performed By: #### L 501.9985, L500.4050 ####[facility] [address] [place], [address] Creatinine [Mass/Vol] 0.74 mg/dL Normal 0.55-1.02 [facility] Comment on above: Result Comment: The validity of the calculated GFR GFRAA in patients over 70 years has not been determined. Clinical correlation is essential. Performed By: #### L 501.9985, L500.4050 ####[facility] [address] [place], [address] ECRCL 85.14 ml/min Normal [facility] Comment on above: Performed By: #### L 501.9985, L500.4050 ####[facility] [address] [place], [address] EST GFR - AA 107 mL/min Normal >60 [facility] Comment on above: Result Comment: Afri can [place] GFR Calc Performed By: #### L 501.9985, L500.4050 ####[facility] [address] [place], [address] GAP 7 Normal 5-15 [facility] Comment on above: Performed By: #### L 501.9985, L500.4050 ####[facility] [address] [place], [address] GFR/1.73 sq M.predicted among non-blacks MDRD (S/P/Bld) [Vol rate/Area] 88 mL/min/{1.73_m2} Normal >60 [facility] Comment on above: Result Comment: Non- GFR Calc Performed By: #### L 501.9985, L500.4050 ####[facility] [address] [place], [address] Globulin (S) [Mass/Vol] 3.2 g/dL Normal 2.2-4.2 [facility] Comment on above: Performed By: #### L 501.9985, L500.4050 ####[facility] [address] [place], [address] Glucose [Mass/Vol] 114 mg/dL High 74-106 [facility] Comment on above: Result Comment: Fast ing Glucose result from 100 to 125 mg/dL suggests IMPAIRED HOMEOSTASIS per A.D.A. criteria. Performed By: #### L 501.9985, L500.4050 ####[facility] [address] [place], [address] Potassium [Moles/Vol] 3.0 mmol/L Low 3.5-5.1 [facility] Comment on above: Performed By: #### L 501.9985, L500.4050 ####[facility] [address] [place], [address] Sodium [Moles/Vol] 147 mmol/L High 136-145 [facility] Comment on above: Performed By: #### L 501.9985, L500.4050 ####[facility] [address] [place], [address] T PROT 6.1 g/dL Low 6.4-8.2 [facility] Comment on above: Performed By: #### L 501.9985, L500.4050 ####[facility] [address] [place], [address] Urea nitrogen [Mass/Vol] 10 mg/dL Normal 7-18 [facility] Comment on above: Performed By: #### L 501.9985, L500.4050 ####[facility] [address] [place], [address] Determination of erythrocyte mean corpuscular volume (MCV)Ordered By: Fabio Mcbride on 03-01-2023 MCV (RBC) [Entitic vol] 89.8 fL 81-99 [facility] Direct bilirubinOrdered By: Kristen Caraballo on 03-01-2023 Bilirubin.direct [Mass/Vol] 0.18 mg/dL 0.00-0.30 [facility] Emergency Department Summary on 03-01-2023 Emergency Department Summary [facility] Medical Records Department [address] [place] [address] Emergency Department Summary 03/01/23 MR#: [id number] Acct: [id number] Name: KAMLA HEDRICK Rep #: [id number] : 1970 52 From: Fabio Lieberman PCP: Dr. Shira Rider MD Status:ADM IN Location: [place] [address] HPI History of Present Illness Chief Complaint: Substance Abuse Informant: patient Narrative Narrative: Presents here requesting detox. Reports previous heroin user went to [facility] in 2018. Patient relapsed this past [...] She was reporting when she was in correction had polysubstance findings from her toxicology screen including methadone MDMA and benzos which she states she did not use those. She had meth stating she tried it before correction did not like it. Medically discussion she states she has concerns for leg swelling. No trouble urinating. She states she was attacked by pit bull in January before going to correction. Denies any fevers. Prior similar symptoms: Yes PFSH [facility] Medical History (Updated 03/01/23 @ 01:46 by [...] for respiratory (more content not included)... Normal [facility] H AND P Exam - Hospitaliston 03-01-2023 H&P Exam - Hospitalist [facility] Medical Records Department [address] [place] [address] H P Exam - Hospitalist 03/01/23 0145 MR#: [id number] Acct: [id number] Name: RYLEYOctober Rep #: [id number] : 1970 52 From: Kristen Caraballo MD PCP: Dr. Shira Rider MD Status:ADM IN Location: [facility] DPS214-5 HPI - General General Date of Admission: 03/01/23 Date of Service: 03/01/23 Chief Complaint: Acute Opiate withdrawal HPI Narrative The patient is a 52 y/o F w/ PMHx: Allergic rhinitis, HTN, Anxiety and Depression/Bipolar disorder, GERD, Overweight, Polysubstance abuse (Percocet/Opiates/Cocai ne, Prior IVDA w/ heroin) who presents to the [facility] ED on 03/01/23 with noted acute opiate [...] MDMA and cocaine, ethyl alcohol level <3. [facility] Medical History (Updated 03/01/23 @ 01:46 by [...] of splenectomy. (more content not included)... Normal [facility] HIV - WCHon 03-01-2023 HIV Non-Reactive Normal Nonreactive [facility] Comment on above: Performed By: #### L 3890.6005, L509.8000, L501.5200, L500.3400 ####[facility] [address] [place], [address] HIV 1 and HIV-2 antibody ass ay with HIV-1 p24 antigen detectionOrdered By: Kristen Caraballo on 03-01-2023 HIV 1+2 Ab+HIV1 p24 Ag IA Ql Non-Reactive Nonreactive [facility] Hematocrit Auto (Bld) [Volum e fraction]Ordered By: Fabio Mcbride on 03-01-2023 Hematocrit (Bld) [Volume fraction] 35.1 % 37-47 [facility] Hemoglobin A1con 03-01-2023 HbA1c (Bld) [Mass fraction] 5.3 % Normal 3.8-5.6 [facility] Comment on above: Result Comment: Norm al < 5.7 % Prediabetic 5.7 - 6.4 % Diabetic >or= 6.5 % Please note range changes. Performed By: #### L 501.9985, L500.4050 ####[facility] [address] [place], [place], [address] Hepatitis B Surface Antibody on 03-01-2023 HEP B Surf Ab Reactive Normal [facility] Comment on above: Order Comment: Reaso n for Exam: Hepatitis Screen RESULTS CALLED TO JOLENE KENNEDY RN (U) 03/01/23 0439 Mandeep Rabago. REPORT READ BACK BY SAME. Result Comment: Non Reactive: Inconsistent with immunity less than <10 mIU/mL Reactive: Consistent with immunity greater than or equal to 10 mIU/mL Performed By: #### L 3890.6200, L3890.6100, L801.1541, L3890.6300 #### [facility] [address] [place], [address] Hepatitis B Surface Antigeno n 03-01-2023 HEP B Surf Ag Non-Reactive Normal Nonreactive [facility] Comment on above: Order Comment: Reaso n for Exam: Hepatitis Screen RESULTS CALLED TO JOLENE KENNEDY RN ([facility]) 03/01/23 0439 Mandeep Rabago. REPORT READ BACK BY SAME. Result Comment: AMENDED REPORT 03/01/23614 HEPB Surface Ag previously reported as: Nonreactive Performed By: #### L 3890.6200, L3890.6100, L801.1541, L3890.6300 #### [facility] [address] [place], [address] Hepatitis C Antibodyon 03-01 Hepatitis C Ab Reactive Normal Nonreactive [facility] Comment on above: Order Comment: Reaso n for Exam: Hepatitis Screen RESULTS CALLED TO JOLENE KENNEDY RN ([facility]) 03/01/23 0439 Mandeep Rabago. REPORT READ BACK BY SAME. Result Comment: Non Reactive: < 0.8 Equivocal: >/= 0.8 to < 1.0 Reactive: >/= 1.0 The CDC recommends that a reactive/equivocal HCV antibody result be followed up by the HCV Nucleic Acid Amplification test (140210) Performed By: #### L 3890.6200, L3890.6100, L801.1541, L3890.6300 #### [facility] [address] [place], [address] Hepatitis C,RNA PCR Viral Lo aviation survival technician 03-01-2023 HCV QT RNA PCR Normal [facility] Comment on above: Result Comment: QNS PER [facility] Performed By: #### L 7000.7000 ####[facility] [address] [place], [address] L509.8000on 03-01-2023 Syphilis Abs Non-Reactive Normal [facility] Comment on above: Performed By: #### L 3890.6005, L509.8000, L501.5200, L500.3400 #### [facility] [address] [place], [address] Laboratory - Chemistry and C hemistry - challengeOrdered By: Kristen Caraballo on 03-01-2023 ALP [Catalytic activity/Vol] 70 U/L [facility] ALT [Catalytic activity/Vol] 20 U/L [facility] Globulin (S) [Mass/Vol] 3.2 g/dL 2.2-4.2 [facility] ALP [Catalytic activity/Vol] 79 U/L [facility] ALT [Catalytic activity/Vol] 23 U/L [facility] Globulin (S) [Mass/Vol] 3.7 g/dL 2.2-4.2 [facility] Magnesium [Mass/Vol] 1.7 mg/dL 1.6-2.6 [facility] Laboratory - Chemistry and C hemistry - challengeOrdered By: Fabio Mcbride on 03-01-2023 CO2 [Moles/Vol] 31.0 mmol/L 21.0-32.0 [facility] Urea nitrogen/Creatinine [Mass ratio] 11.8 mg/mg 05-07 [facility] Laboratory - Drug toxicology Ordered By: Fabio Mcbride on 03-01-2023 Amphetamines Ql (U) Negative <1000 ng/mL [facility] Benzodiazepines Ql (U) Negative < 200 ng/mL [facility] Cannabinoids Screen Ql (U) Negative < 50 ng/mL [facility] Cocaine Ql (U) Positive < 300 ng/mL [facility] Opiates Ql (U) Negative < 300 ng/mL [facility] Laboratory - Hematology and Cell countsOrdered By: Fabio Mcbride on 03-01-2023 Erythrocyte distribution width (RBC) [Entitic vol] 43.7 fL 35.1-43.9 [facility] Erythrocyte distribution width (RBC) [Ratio] 13.4 % 11.6-14.6 [facility] Immature granulocytes/100 WBC (Bld) 0.300 % 0.0-0.9 [facility] Comment on above: IG% - Immature Granu locytes (promyelocytes, myelocytes and metamyelocytes) > 1% indicates that a LEFT SHIFT is Present. MCH (RBC) [Entitic mass] 28.6 pg 27.0-32.0 [facility] Nucleated RBC/100 WBC (Bld) [Ratio] 0 % 0-5 [facility] Liver Profileon 03-01-2023 Albumin [Mass/Vol] 3.5 g/dL Normal 3.2-5.0 [facility] Comment on above: Order Comment: Comme nts: may add to ED labs Performed By: #### L 3890.6005, L509.8000, L501.5200, L500.3400 #### [facility] [address] [place], [address] ALK P 79 U/L Normal 45-117 [facility] Comment on above: Order Comment: Comme nts: may add to ED labs Performed By: #### L 3890.6005, L509.8000, L501.5200, L500.3400 #### [facility] [address] [place], [address] ALT [Catalytic activity/Vol] 23 U/L Normal 13-56 [facility] Comment on above: Order Comment: Comme nts: may add to ED labs Performed By: #### L 3890.6005, L509.8000, L501.5200, L500.3400 #### [facility] [address] [place], [address] AST [Catalytic activity/Vol] 17 U/L Normal 15-37 [facility] Comment on above: Order Comment: Commjohn nts: may add to ED labs Performed By: #### L 3890.6005, L509.8000, L501.5200, L500.3400 #### [facility] [address] [place], [address] Bilirubin [Mass/Vol] 0.70 mg/dL Normal 0.20-1.00 [facility] Comment on above: Order Comment: Comme nts: may add to ED labs Result Comment: For patients on eltrombopag therapy, use of Dimension [place] TBIL is not recommended. Performed By: #### L 3890.6005, L509.8000, L501.5200, L500.3400 #### [facility] [address] [place], [address] Bilirubin.direct [Mass/Vol] 0.18 mg/dL Normal 0.00-0.30 [facility] Comment on above: Order Comment: Comme nts: may add to ED labs Performed By: #### L 3890.6005, L509.8000, L501.5200, L500.3400 #### [facility] [address] [place], [address] Globulin (S) [Mass/Vol] 3.7 g/dL Normal 2.2-4.2 [facility] Comment on above: Order Comment: Comme nts: may add to ED labs Performed By: #### L 3890.6005, L509.8000, L501.5200, L500.3400 #### [facility] [address] [place], [address] T PROT 7.2 g/dL Normal 6.4-8.2 [facility] Comment on above: Order Comment: Comme nts: may add to ED labs Performed By: #### L 3890.6005, L509.8000, L501.5200, L500.3400 #### [facility] [address] [place], [address] MCHC Auto (RBC) [Mass/Vol]Or dered By: Fabio Mcbride on 03-01-2023 MCHC (RBC) [Mass/Vol] 31.9 g/dL 32-36 [facility] Magnesiumon 03-01-2023 Magnesium [Mass/Vol] 1.7 mg/dL Normal 1.6-2.6 [facility] Comment on above: Order Comment: Comme nts: may add to ED labs Performed By: #### L 3890.6005, L509.8000, L501.5200, L500.3400 #### [facility] [address] [place], [address] No Panel InformationOrdered By: Fabio Mcbride on 03-01-2023 Estimated Creatinine Clearance Calc 65.12 ml/min [facility] Estimated GFR (MDRD) Amer 82 mL/min >60 [facility] Comment on above: GFR Calc Estimated GFR (MDRD) Non-Af Amer 67 mL/min >60 [facility] Comment on above: Non- GFR Calc Ethyl Alcohol Level < 3.0 mg/dL [facility] Comment on above: The serum:whole bloo d ethanol ratio is approximately 1.14and varies slightly with hematocrit. Medical Alcohol reference interval and critical value innon-tolerant individuals; 50 - 100 Impairment 100 Intoxication 100 - 250 Severe Poisoning 250 - 400 Deep/possible fatal coma MDMA (Ecstasy) Screen Positive < 500 ng/mL [facility] Urine Barbiturates Screen Negative < 200 ng/mL [facility] Urine Drug Screen Comment [facility] Comment on above: CONFIRMATORY TESTING FOR ALL [...] Urine Methadone Screen Negative < 300 ng/mL [facility] No Panel InformationOrdered By: Kristen Caraballo on 03-01-2023 Hepatitis B Surface Antigen Non-Reactive Nonreactive [facility] Comment on above: Previous reported re sult: Nonreactive Edited by: PAO on 03/01/23:0615 AMENDED REPORT 03/01/23614 HEPB Surface Ag previously reported as: Nonreactive Hepatitis C Antibody Reactive Nonreactive [facility] Comment on above: Previous reported re sult: Preliminary Reactive Edited by: JOVANNA on 03/01/23:0616 Non Reactive: < 0.8 Equivocal: >/= 0.8 to < 1.0 Reactive: >/= 1.0The [facility] recommends that a reactive/equivocal HCV antibody result be followed up by the HCV Nucleic Acid Amplificationtest (069385) Miscellaneous Test See comment [facility] Comment on above: TEST RESULT LIMITSHC V RNA Diagnosis, FRED HCV RNA, Quantitation HCV Not Detected IU/mL No evidence of active HCV infection.Test Information: The quantitative range of this assay is 15 IU/mL to 100 million IU/mL. TESTING PERFORMED AT [facility]. ORIGINAL REPORT ON FILE IN LAB CONTAINS ADDITIONAL TEST SITE INFORMATION. Platelets bldOrdered By: Seymour Mcbride on 03-01-2023 Platelets (Bld) [#/Vol] 321 10*3/uL 150-450 [facility] ,Serum,hCG Quali.on 03-01-2023 HCG, SERUM QUAL Negative Normal [facility] Comment on above: Performed By: #### L 700.6800, L505.5000, L500.2500, L100.0100, L501.9100 ####[facility] [address] [place], [address] Serum Treponema species anti body detectionOrdered By: Kristen Caraballo on 03-01-2023 Treponema sp Ab Ql (S) Non-Reactive [facility] Serum hepatitis B virus surf adeline antibody IgG detectionOrdered By: Kristen Caraballo on 03-01-2023 HBV surface IgG Ql (S) Reactive [facility] Comment on above: Non Reactive: Incons istent with immunity less than <10 mIU/mL Reactive: Consistent with immunity greater than or equal to 10 mIU/mL Serum or plasma albumin alice urement (mass/volume)Ordered By: Kristen Caraballo on 03-01-2023 Albumin [Mass/Vol] 2.9 g/dL 3.2-5.0 [facility] Albumin [Mass/Vol] 3.5 g/dL 3.2-5.0 [facility] Serum or plasma albumin/glob ulin mass ratioOrdered By: Kristen Caraballo on 03-01-2023 Albumin/Globulin [Mass ratio] 0.9 {ratio} 0.9-2.4 [facility] Serum or plasma calcium alice urement (mass/volume)Ordered By: Fabio Mcbride on 03-01-2023 Calcium [Mass/Vol] 9.0 mg/dL 8.5-10.1 [facility] Serum or plasma creatinine m easurement (mass/volume)Ordered By: Fabio Mcbride on 03-01-2023 Creatinine [Mass/Vol] 0.93 mg/dL 0.55-1.02 [facility] Comment on above: The validity of the calculated GFR & GFRAA in patients over 70 years has not been determined. Clinical correlation is essential. Serum or plasma urea nitroge n measurement (mass/volume)Ordered By: Fabio Mcbride on 03-01-2023 Urea nitrogen [Mass/Vol] 11 mg/dL 7-18 [facility] Thin prep Papanicolaou smear with manual screeningOrdered By: Kristen Caraballo on 03-01-2023 Thin prep Papanicolaou smear with manual screening 16 U/L 15- [facility] Thin prep Papanicolaou smear with manual screening 17 U/L 15 [facility] Thin prep Papanicolaou smear with manual screeningOrdered By: Fabio Mcbride on 03-01-2023 Thin prep Papanicolaou smear with manual screening 4 5-15 [facility] Urine Drug Screen (VISTA)on 03-01-2023 BARBITIURATES Negative Normal < 200 ng/mL [facility] Comment on above: Performed By: #### L 700.6800, L505.5000, L500.2500, L100.0100, L501.9100 ####[facility] [address] [facility] [address] BENZODIAZIPINE Negative Normal < 200 ng/mL [facility] Comment on above: Performed By: #### L 700.6800, L505.5000, L500.2500, L100.0100, L501.9100 ####[facility] [address] [place] [address] COCAINE Positive Abnormal < 300 ng/mL [facility] Comment on above: Performed By: #### L 700.6800, L505.5000, L500.2500, L100.0100, L501.9100 ####[facility] [address] [place] [address] ECSTACY Positive Abnormal < 500 ng/mL [facility] Comment on above: Performed By: #### L 700.6800, L505.5000, L500.2500, L100.0100, L501.9100 ####[facility] [address] [place] [address] METHADONE Negative Normal < 300 ng/mL [facility] Comment on above: Performed By: #### L 700.6800, L505.5000, L500.2500, L100.0100, L501.9100 ####[facility] [address] [place] [address] OPIATES Negative Normal < 300 ng/mL [facility] Comment on above: Performed By: #### L 700.6800, L505.5000, L500.2500, L100.0100, L501.9100 ####[facility] [address] [place] [address] PCP Negative Normal < 25 ng/mL [facility] Comment on above: Performed By: #### L 700.6800, L505.5000, L500.2500, L100.0100, L501.9100 ####[facility] [address] [place] [address] THC Negative Normal < 50 ng/mL [facility] Comment on above: Performed By: #### L 700.6800, L505.5000, L500.2500, L100.0100, L501.9100 ####[facility] [address] [place], [address] AMPHETAMINES Negative Normal <1000 ng/mL [facility] Comment on above: Performed By: #### L 700.6800, L505.5000, L500.2500, L100.0100, L501.9100 ####[facility] [address] [place], [address] VISTA UDS PH 4 Normal [facility] Comment on above: Performed By: #### L 700.6800, L505.5000, L500.2500, L100.0100, L501.9100 ####[facility] [address] [place], [address] Urine phencyclidine (PCP) de tectionOrdered By: Fabio Mcbride on 03-01-2023 Phencyclidine Ql (U) Negative < 25 ng/mL [facility] Whole blood hemoglobin A1c/t otal hemoglobin ratio (mass fraction)Ordered By: Kristen Caraballo on 03-01-2023 HbA1c (Bld) [Mass fraction] 5.3 % 3.8-5.6 [facility] Comment on above: Normal < 5.7 % Predi abetic 5.7 - 6.4 % Diabetic >or= 6.5 % Please note range changes. ED NOTEon 12-23-2022 ED NOTE HNO ID: [id number] Author: Stefani Shields RN Service: Emergency Medicine Author Type: Registered Nurse Type: ED Notes Filed: 12/22/2022 10:25 PM Note Text: Pt walked out of department, made comment to [facility] TRACY, I can't wait for those discharge papers pt's gate steady. Dr. Hernandez informed. Normal [facility] ED PROV NOTEon 12-23-2022 ED PROV NOTE HNO ID: [id number] Author: Meghna Hernandez MD Service: Emergency Medicine [...] triage complaint, including neck pain, weakness to roofer gypsum. Patient states she is living in apartment [...] building. Pat (more content not included)... Normal [facility] ED NOTEon 12-22-2022 ED NOTE HNO ID: [id number] Author: Gaby Davidson RN Service: ? Author [...] AANDOx3, vss. Will continue to monitor. Normal [facility] Office Visit (Audiology)on 09-16-2021 Follow-up visit [...] applicable. If no insurance benefits are available, [facility] can provide hearing aid services. 4. Potential [...] any recent ear infections. Patient's preferred language: Mauritanian Preferred language of the parent, legal guardian or surrogate decision-maker of this minor or incapacitated patient: Mauritanian No overt signs of domestic violence/neglect/abuse. No referral made to [facility]. Pain not interfering with optimal level of [...] applicable. If no insurance benefits are available, [facility] can provide hearing aid services. 4. Potential study candidate. She consented to being contacted to learn more and for further testing. Time: [id number] Signatures Electronically signed by : Vahe Azul [facility]; Sep 16 2021 3:41PM EST (Author) Normal [facility] ED NOTEon 09-11-2021 ED NOTE HNO ID: [id number] Author: Ines Cevallos RN Service: Emergency Medicine Author Type: Registered Nurse Type: ED Notes Filed: 09/11/2021 1:30 AM Note Text: Dc instr to fu w pmd, return prn. Verb und, agreeable to plan. Patient is AANDO, skin wdp, resps unlabored, speech clear. Cheerful and interactive. Ambulates with steady upright gait Normal [facility] ED NOTE HNO ID: [id number] Author: Sarah Rangel RN Service: Emergency Medicine [...] anything else to help you? No Normal [facility] ED NOTE HNO ID: [id number] Author: Ines Cevallos RN Service: Emergency Medicine Author Type: Registered Nurse Type: ED Notes Filed: 09/11/2021 12:57 AM Note Text: Patient states there is something in my back and it's been going on for a month. When I look in the mirror, I can see it moving around. patient states there is no pain except when it's moving around. Normal [facility] ED PROV NOTEon 09-11-2021 ED PROV NOTE HNO ID: [id number] Author: Ramya Hull MD Service: Emergency Medicine [...] soft. Tenderness: (more content not included)... Normal [facility] DISCHARGE SUMMARYon 02-16-20 DISCHARGE SUMMARY NAME: KHAI HEDRICK R: [id number] DATE: 01/13/2017DISCHARGE DATE: 01/15/2017The patient was discharged from the service of Dr. Perez, for whom this dictationis being presented on 01/15/2017.DISCHARGE MEDICATIONS: None.LABORATORY VALUES: CBC within normal limits. INR 0.95. General biochemical screenwithin normal limits. Urine toxicology screen positive for opiates. Breathalyzer0.HOSPITAL COURSE: This patient presented to the [facility] with a history of the useof heroin from age of 45, injecting up to 1.5 g intravenously daily, having Xanax 3mg orally once a week to once a month. Smoking cigarettes to a half pack daily anddenying prior chemical dependency treatment. While on the [facility], Kamla wasallowed nicotine replacement therapy and tapering doses of tramadol andbuprenorphine and p.r.n. doses of phenobarbital. She participated in [employer], underwent a chemical dependency assessment and signed a certificate ofrelease and left the [facility] against medical advice.FINAL DIAGNOSES:1. Opiate use disorder, severe.2. Benzodiazepine use disorder, moderate.3. Tobacco use disorder, severe.4. History of hypertension.5. History of fibromyalgia.6. History of treated iron-deficiency anemia. IVÁN PEREZ MDDICTATED BY: LORENA BURTON/PERLA/[id number]: 02/15/2017 12:27:02 E/S: Nba Perez MD02/22/17 1253Signature on [facility] PT NAME: POOL HEDRICK#: [id number] [place] [address] ACCT: [id number]: 72DISCHARGE SUMMARY Normal [facility] PHENOBARBon 01-15-2017 PHENOBARB 5.5 ug/mL Low 15-40 [facility] Comment on above: Order Comment: CONSE RVATION Performed By: #### L 600.06877 ####Test performed at: [place] [address] Nasreen 01-13-2017 Alanine aminotransferase (ALT) 19 U/L Normal 13-61 [facility] Comment on above: Order Comment: CONSE RVATION Performed By: #### L 500.40773, L500.91882, L500.91945, L500.88526, L500.24843 ####Test performed at: [place] [address] Laura 01-13-2017 Aspartate aminotransferase (AST) 16 U/L Normal 15-37 [facility] Comment on above: Order Comment: CONSE RVATION Performed By: #### L 500.66008, L500.29621, L500.04999, L500.80376, L500.06040 ####Test performed at: [place] [address] BASIC MET PANELon 01-13-2017 Anion gap 11 mmol/L Normal 6-18 [facility] Comment on above: Order Comment: CONSE RVATION Performed By: #### L 500.21681, L500.37369, L500.22369, L500.54749, L500.13238 ####Test performed at: [place] [address] Calcium 9.0 mg/dL Normal 8.5-10.1 [facility] Comment on above: Order Comment: CONSE RVATION Performed By: #### L 500.64804, L500.30283, L500.14607, L500.64311, L500.90358 ####Test performed at: [place] [address] Chloride 107 mmol/L Normal 98-107 [facility] Comment on above: Order Comment: CONSE RVATION Performed By: #### L 500.36451, L500.62141, L500.19737, L500.99584, L500.58490 ####Test performed at: [place] [address] CO2 27 mmol/L Normal 21-32 [facility] Comment on above: Order Comment: CONSE RVATION Performed By: #### L 500.57596, L500.88743, L500.63979, L500.34077, L500.99467 ####Test performed at: [place] [address] Creatinine 0.882 mg/dL Normal 0.550-1.020 [facility] Comment on above: Order Comment: CONSE RVATION Performed By: #### L 500.49773, L500.02167, L500.02908, L500.29646, L500.03824 ####Test performed at: [place] [address] Glucose mass conc 100 mg/dL Normal 74-106 [facility] Comment on above: Order Comment: CONSE RVATION Performed By: #### L 500.06851, L500.49739, L500.01586, L500.80558, L500.71675 ####Test performed at: [place] [address] OSM 290 mosm/kg Normal 270-300 [facility] Comment on above: Order Comment: CONSE RVATION Performed By: #### L 500.11271, L500.34959, L500.53122, L500.00274, L500.07527 ####Test performed at: [place] [address] Potassium molar conc 4.1 mmol/L Normal 3.5-5.1 [facility] Comment on above: Order Comment: CONSE RVATION Performed By: #### L 500.35355, L500.43901, L500.50988, L500.08692, L500.69046 ####Test performed at: [place] [address] Sodium 141 mmol/L Normal 136-145 [facility] Comment on above: Order Comment: CONSE RVATION Performed By: #### L 500.64031, L500.89888, L500.99505, L500.69344, L500.70834 ####Test performed at: [place] [address] Urea nitrogen 8 mg/dL Normal 7-18 [facility] Comment on above: Order Comment: CONSE RVATION Performed By: #### L 500.10888, L500.59633, L500.57193, L500.40370, L500.66482 ####Test performed at: [place] [address] CBCon 01-13-2017 Erythrocyte distribution width Auto Ratio (RBC) 14.3 % Normal 11.5-14.5 [facility] Comment on above: Order Comment: CONSE RVATION Performed By: #### L 200.16880 ####Test performed at: [place] [address] Erythrocytes (RBC) 0.000 10*6/uL Normal 0-0.012 [facility] Comment on above: Order Comment: CONSE RVATION Performed By: #### L 200.13089 ####Test performed at: [place] [address] Erythrocytes (RBC) 4.70 10*6/uL Normal 3.5-5.5 [facility] Comment on above: Order Comment: CONSE RVATION Performed By: #### L 200.65507 ####Test performed at: [address] [address] Hematocrit (HCT) 38.2 % Normal 36.0-48.0 [facility] Comment on above: Order Comment: CONSE RVATION Performed By: #### L 200.47163 ####Test performed at: [address] [address] Hemoglobin mass conc (Bld) 12.7 g/dL Normal 12.0-15.0 [facility] Comment on above: Order Comment: CONSE RVATION Performed By: #### L 200.16379 ####Test performed at: [place] [address] MCH 27.0 pg Normal 25.4-34.6 [facility] Comment on above: Order Comment: CONSE RVATION Performed By: #### L 200.65163 ####Test performed at: [address] [address] MCHC mass conc (RBC) 33.2 g/dL Normal 31.5-36.5 [facility] Comment on above: Order Comment: CONSE RVATION Performed By: #### L 200.01172 ####Test performed at: [address] [address] MCV 81.3 fL Normal 79.0-98.0 [facility] Comment on above: Order Comment: CONSE RVATION Performed By: #### L 200.26673 ####Test performed at: [address] [address] NRBC % 0.0 /100 WBC Normal 0-0.2 [facility] Comment on above: Order Comment: CONSE RVATION Performed By: #### L 200.23460 ####Test performed at: [address] [address] Platelet mean volume (PMV) 9.3 fL Normal 8.7-12.4 [facility] Comment on above: Order Comment: CONSE RVATION Performed By: #### L 200.02414 ####Test performed at: [address] [address] Platelets 307 10*3/uL Normal 140-440 [facility] Comment on above: Order Comment: CONSE RVATION Performed By: #### L 200.53961 ####Test performed at: [address] [address] WBC (Leukocytes) 4.3 10*3/uL Normal 3.9-11.0 [facility] Comment on above: Order Comment: CONSE RVATION Performed By: #### L 200.95929 ####Test performed at: [place] [address] EST. CREAT CLRon 01-13-2017 Creatinine 123.998 ML/MIN Normal [facility] Comment on above: Order Comment: CONSE RVATION Result Comment: This result is an ESTIMATED blood creatinine clearance valuewhich is derived from the patient age, sex, weight, andprevious blood creatinine result. Performed By: #### L 500.62873, L500.11017, L500.33005, L500.41936, L500.19768 ####Test performed at: [place] [address] GFR ESTIMATEon 01-13-2017 IF AMER > 60 Normal > 60 [facility] Comment on above: Order Comment: CONSE RVATION Result Comment: eGFR (Estimated GFR) Units of measure:mL/min/1.73 meters sq.*CALCULATION REVISED 05/07/2015;IDMS-traceable MDRD equationeGFR is derived from the reexpressed MDRD Study equationusing the following parameters: serum creatinine, age,gender and race. An eGFR<60 mL/min/1.73m2 for >3 monthsis consistent with chronic kidney disease. Refer to KDOQIguidelines for clinical interpretation. Performed By: #### L 500.22339, L500.76915, L500.24755, L500.61531, L500.74950 ####Test performed at: [place] [address] IF non-AFR AMER > 60 Normal > 60 [facility] Comment on above: Order Comment: CONSE RVATION Performed By: #### L 500.17750, L500.05721, L500.30462, L500.70662, L500.95986 ####Test performed at: [place] [address] LIMIT UR TOXon 01-13-2017 UR AMPH Negative Normal Negative [facility] Comment on above: Order Comment: CONSE RVATION Result Comment: CUTO ZH=[id number] Performed By: #### L 600.79812 ####Test performed at: [address] [address] UR VU Negative Normal Negative [facility] Comment on above: Order Comment: CONSE RVATION Result Comment: CUTO DU=358 Performed By: #### L 600.11973 ####Test performed at: [place] [address] UR TONG Negative Normal Negative [facility] Comment on above: Order Comment: CONSE RVATION Result Comment: CUTO PA=928 Performed By: #### L 600.03049 ####Test performed at: [place] [address] UR LISA/THC Negative Normal Negative [facility] Comment on above: Order Comment: CONSE RVATION Result Comment: CUTO FF=50 Performed By: #### L 600.33169 ####Test performed at: [place] [address] UR CHRISTOPHER Negative Normal Negative [facility] Comment on above: Order Comment: CONSE RVATION Result Comment: CUTO MW=591 Performed By: #### L 600.26108 ####Test performed at: [address] [address] UR ECSTASY Negative Normal Negative [facility] Comment on above: Order Comment: CONSE RVATION Result Comment: CUTO EA=820 Performed By: #### L 600.99585 ####Test performed at: [address] [address] UR METH Negative Normal Negative [facility] Comment on above: Order Comment: CONSE RVATION Result Comment: CUTO QI=708 Performed By: #### L 600.65515 ####Test performed at: [address] [address] UR OPIAT Positive Invalid Interpretation Code Negative [facility] Comment on above: Order Comment: CONSE RVATION Result Comment: CUTO DP=345 Performed By: #### L 600.14524 ####Test performed at: [place] [address] UR OXYCOCONE Negative Normal Negative [facility] Comment on above: Order Comment: CONSE RVATION Result Comment: CUTO JZ=856 Performed By: #### L 600.72131 ####Test performed at: [place] [address] UR PCP Negative Normal Negative [facility] Comment on above: Order Comment: CONSE RVATION Result Comment: CUTO FF=25 Performed By: #### L 600.48534 ####Test performed at: [place] [address] PH TOX 6.0 Normal 5.0-8.0 [facility] Comment on above: Order Comment: CONSE RVATION Performed By: #### L 600.50891 ####Test performed at: [place] [address] TOX COMMENT *PLEASE NOTE: Normal [facility] Comment on above: Order Comment: CONSE RVATION Result Comment: UNCO NFIRMED Toxicology results. For MEDICAL purposes only. Performed By: #### L 600.84187 ####Test performed at: [place] [address] PROTIMEon 01-13-2017 INR Coag RelTime (PPP) 0.95 {INR} Normal 0.00-1.20 [facility] Comment on above: Order Comment: CONSE RVATIONList patient's anticoagulants for PT: NONE SPECIFIED Result Comment: Carlos mmended therapeutic range is an INR of 2.0-3.0 exceptfor prevention of recurrent acute NE and mechanicalprosthetic heart valve where an INR of 2.5-3.5 isrecommended. Performed By: #### L 300.73058 ####Test performed at: [place] [address] PT SEC 10.1 seconds Normal 9.7-11.5 [facility] Comment on above: Order Comment: CONSE RVATIONList patient's anticoagulants for PT: NONE SPECIFIED Performed By: #### L 300.49389 ####Test performed at: [place] [address] UR BUPREN/NORBUon 01-13-2017 UR BUPREN/NORBU Negative Normal Negative [facility] Comment on above: Order Comment: CONSE RVATION Result Comment: CUTO FF=10 Performed By: #### L 600.04083 ####Test performed at: [place] [address] UR HCG QUALon 01-13-2017 UR HCG QUAL Negative Normal [facility] Comment on above: Order Comment: CONSE RVATION Performed By: #### L 600.62518 ####Test performed at: [place] [address] Vital Signs Date Time Vital Sign Value Performing Clinician Facility 10-18-2024 15:05-0400 Diastolic blood pressure 73 mm[Hg] Amanda Canela MD Work Phone: [facility] 10-18-2024 15:05-0400 Heart rate 77 /min Amanda Canela MD Work Phone: [facility] 10-18-2024 15:05-0400 SaO2% (BldA) [Mass fraction] 98 % Amanda Canela MD Work Phone: [facility] 10-18-2024 15:05-0400 Systolic blood pressure 105 mm[Hg] Amanda Canela MD Work Phone: [facility] 07-28-2024 12:15-0500 Body height 167.6 cm Ramya Guan CNP Work Phone: [facility] 07-28-2024 12:15-0500 Body mass index (BMI) [Ratio] 27.76 kg/m2 Ramya Guan CNP Work Phone: [facility] [employer] 07-28-2024 12:15-0500 Body temperature 97.39 [degF] Ramya Segovia APRN - LEAN MANUFACTURING SPECIALIST Work Phone: [facility] [employer] 07-28-2024 12:15-0500 Body weight 78.02 kg Ramya Segovia APRN - LEAN MANUFACTURING SPECIALIST Work Phone: [facility] [employer] 07-28-2024 12:15-0500 Diastolic blood pressure 72 mm[Hg] Ramya Segovia APRN - LEAN MANUFACTURING SPECIALIST Work Phone: [facility] [employer] 07-28-2024 12:15-0500 Heart rate 86 /min Ramya Segovia APRN - LEAN MANUFACTURING SPECIALIST Work Phone: [facility] [employer] 07-28-2024 12:15-0500 SaO2% (BldA) [Mass fraction] 98 % Ramya Segovia APRN - LEAN MANUFACTURING SPECIALIST Work Phone: [facility] [employer] 07-28-2024 12:15-0500 Systolic blood pressure 116 mm[Hg] Ramya Segovia APRN - LEAN MANUFACTURING SPECIALIST Work Phone: [facility] [employer] 03-28-2024 13:50-0400 Body height 167.6 cm Roseline Thakkar DO Work Phone: [facility] [employer] 03-28-2024 13:50-0400 Body mass index (BMI) [Ratio] 28.73 kg/m2 Roseline Thakkar DO Work Phone: [facility] [employer] 03-28-2024 13:50-0400 Body temperature 97 [degF] Roseline Thakkar DO Work Phone: [facility] [employer] 03-28-2024 13:50-0400 Body weight 80.74 kg Roseline Thakkar DO Work Phone: [facility] [employer] 03-28-2024 13:50-0400 Diastolic blood pressure 66 mm[Hg] Roseline Thakkar DO Work Phone: [facility] [employer] 03-28-2024 13:50-0400 Heart rate 64 /min Roseline Thorneugh DO Work Phone: [facility] [employer] 03-28-2024 13:50-0400 SaO2% (BldA) [Mass fraction] 95 % Roseline Ariane DO Work Phone: [facility] [employer] 03-28-2024 13:50-0400 Systolic blood pressure 100 mm[Hg] Roseline Ariane DO Work Phone: [facility] [employer] 01-11-2024 15:12-0400 Body height 167.6 cm Jennifer Falconon PA-C Work Phone: [facility] [employer] 01-11-2024 15:12-0400 Body mass index (BMI) [Ratio] 28.89 kg/m2 Jennifer Rocha PA-C Work Phone: [facility] [employer] 01-11-2024 15:12-0400 Body weight 81.19 kg Jennifer Rocha PA-C Work Phone: [facility] [employer] 01-11-2024 15:12-0400 Diastolic blood pressure 65 mm[Hg] Jennifer Rocha PA-C Work Phone: [facility] [employer] 01-11-2024 15:12-0400 Heart rate 64 /min Jennifer Rocha PA-C Work Phone: [facility] [employer] 01-11-2024 15:12-0400 SaO2% (BldA) [Mass fraction] 96 % Jennifer Rocha PA-C Work Phone: [facility] [employer] 01-11-2024 15:12-0400 Systolic blood pressure 95 mm[Hg] Jennifer Rocha PA-C Work Phone: [facility] [employer] 11-12-2023 11:39-0400 Body height 167.6 cm Roseline Ariane DO Work Phone: [facility] [employer] 11-12-2023 11:39-0400 Body mass index (BMI) [Ratio] 29.7 kg/m2 Roseline Ariane DO Work Phone: [facility] [employer] 11-12-2023 11:39-0400 Body weight 83.46 kg Roseline Thakkar DO Work Phone: [facility] [employer] 11-12-2023 11:39-0400 Diastolic blood pressure 79 mm[Hg] Roseline Thakkar DO Work Phone: [facility] [employer] 11-12-2023 11:39-0400 Heart rate 69 /min Roseline Thakkar DO Work Phone: [facility] [employer] 11-12-2023 11:39-0400 SaO2% (BldA) [Mass fraction] 96 % Roseline Thakkar DO Work Phone: [facility] [employer] 11-12-2023 11:39-0400 Systolic blood pressure 120 mm[Hg] Roseline Thakkar DO Work Phone: [facility] 06-25-2023 16:46-0500 Body temperature 97.81 [degF] Ashlee Callow CARDIOVASCULAR PHYSICIAN ASSISTANT.LEAN MANUFACTURING SPECIALIST Work Phone: [facility] 06-25-2023 16:46-0500 Body weight 77.11 kg Ashlee Callow CARDIOVASCULAR PHYSICIAN ASSISTANT.LEAN MANUFACTURING SPECIALIST Work Phone: [facility] 06-25-2023 16:46-0500 Diastolic blood pressure 70 mm[Hg] Ashlee Callow CARDIOVASCULAR PHYSICIAN ASSISTANT.LEAN MANUFACTURING SPECIALIST Work Phone: [facility] 06-25-2023 16:46-0500 Heart rate 75 /min Ashlee Callow CARDIOVASCULAR PHYSICIAN ASSISTANT.LEAN MANUFACTURING SPECIALIST Work Phone: [facility] 06-25-2023 16:46-0500 Respiratory rate 20 /min Ashlee Callow CARDIOVASCULAR PHYSICIAN ASSISTANT.LEAN MANUFACTURING SPECIALIST Work Phone: [facility] 06-25-2023 16:46-0500 SaO2% (BldA) [Mass fraction] 98 % Ashlee Callow CARDIOVASCULAR PHYSICIAN ASSISTANT.LEAN MANUFACTURING SPECIALIST Work Phone: [facility] 06-25-2023 16:46-0500 Systolic blood pressure 109 mm[Hg] Ashlee Callow CARDIOVASCULAR PHYSICIAN ASSISTANT.LEAN MANUFACTURING SPECIALIST Work Phone: [facility] 05-12-2023 15:46-0400 Body temperature 97.39 [degF] Jen Gore CARDIOVASCULAR PHYSICIAN ASSISTANT.LEAN MANUFACTURING SPECIALIST Work Phone: [facility] 05-12-2023 15:46-0400 Body weight 71.12 kg Jen Gore CARDIOVASCULAR PHYSICIAN ASSISTANT.LEAN MANUFACTURING SPECIALIST Work Phone: [facility] 05-12-2023 15:46-0400 Diastolic blood pressure 74 mm[Hg] Jen Gore CARDIOVASCULAR PHYSICIAN ASSISTANT.LEAN MANUFACTURING SPECIALIST Work Phone: [facility] 05-12-2023 15:46-0400 Heart rate 74 /min Jen Gore CARDIOVASCULAR PHYSICIAN ASSISTANT.LEAN MANUFACTURING SPECIALIST Work Phone: [facility] 05-12-2023 15:46-0400 Respiratory rate 21 /min Jen Gore CARDIOVASCULAR PHYSICIAN ASSISTANT.LEAN MANUFACTURING SPECIALIST Work Phone: [facility] 05-12-2023 15:46-0400 SaO2% (BldA) [Mass fraction] 99 % Jen Gore CARDIOVASCULAR PHYSICIAN ASSISTANT.LEAN MANUFACTURING SPECIALIST Work Phone: [facility] 05-12-2023 15:46-0400 Systolic blood pressure 90 mm[Hg] Jen Gore CARDIOVASCULAR PHYSICIAN ASSISTANT.LEAN MANUFACTURING SPECIALIST Work Phone: [facility] 03-03-2023 11:00-0400 Body temperature 97.7 [degF] Dr. Fabio Mcbride Work Phone: [facility] 03-03-2023 11:00-0400 Diastolic blood pressure 71 mm[Hg] Dr. Fabio Mcbride Work Phone: [facility] 03-03-2023 11:00-0400 Heart rate 74 /min Dr. Fabio Mcbride Work Phone: [facility] 03-03-2023 11:00-0400 Respiratory rate 18 /min Dr. Fabio Mcbride Work Phone: [facility] 03-03-2023 11:00-0400 SaO2% (BldA) [Mass fraction] 100 % Dr. Fabio Mcbride Work Phone: [facility] 03-03-2023 11:00-0400 Systolic blood pressure 116 mm[Hg] Dr. Fabio Mcbride Work Phone: [facility] 03-01-2023 13:37-0400 Body height 167.[address] Fabio Mcbride Work Phone: [facility] 03-01-2023 13:37-0400 Body weight 67.[address] Fabio Mcbride Work Phone: [facility] 03-01-2023 02:58-0400 Body mass index (BMI) [Ratio] 23.8 kg/m2 Dr. Fabio Mcbride Work Phone: [facility] 03-01-2023 01:51-0400 Body temperature 97.9 [degF] [facility] 03-01-2023 01:51-0400 Diastolic blood pressure 86 mm[Hg] [facility] 03-01-2023 01:51-0400 Heart rate 80 /min [facility] 03-01-2023 01:51-0400 Respiratory rate 16 /min [facility] 03-01-2023 01:51-0400 SaO2% (BldA) [Mass fraction] 98 % [facility] 03-01-2023 01:51-0400 Systolic blood pressure 117 mm[Hg] [facility] 03-01-2023 00:55-0400 Body height 165.1 cm [facility] 03-01-2023 00:55-0400 Body mass index (BMI) [Ratio] 27.9 kg/m2 [facility] 03-01-2023 00:55-0400 Body weight 76.2 kg [facility] Encounters Encounter Date Encounter Type Care Provider Facility Start: 11-28-2024 End: 12-04-2024 ambulatory Em Jennings Clinical Communication Start: 11-28-2024 End: 12-04-2024 Patient encounter procedure Em Jennings Clinical Communication Start: 11-22-2024 End: 11-23-2024 Refill Roseline Thakkar DO Work Phone: [facility] Comment on above: Anemia, unspecified type Start: 10-18-2024 End: 10-18-2024 Office outpatient visit 25 minutes Amanda Canela MD Work Phone: [facility] Comment on above: Acute bilateral knee pain (Primary Dx); Family history of rheumatoid arthritis; Varicose veins of both lower extremities with pain Start: 10-18-2024 End: 10-18-2024 ambulatory ROSELINE THAKKAR [facility] Start: 09-04-2024 End: 09-04-2024 ambulatory Anna Gallardo RN [facility] Clinical Communication Start: 09-04-2024 End: 09-04-2024 Patient encounter procedure Anna Gallardo RN [facility] Clinical Communication Start: 07-31-2024 End: 07-31-2024 Emergency department patient visit SHIRA Magalys TERESO Facility:[facility] Start: 07-28-2024 End: 07-28-2024 ambulatory ROSELINE ARIANE [facility] Start: 07-28-2024 End: 07-28-2024 Office outpatient visit 10 minutes Ramya Segovia CARDIOVASCULAR PHYSICIAN ASSISTANT - LEAN MANUFACTURING SPECIALIST Work Phone: [facility] Comment on above: Seborrheic dermatiti s of scalp Start: 07-28-2024 End: 07-28-2024 Office outpatient visit 15 minutes Ramya Segovia CARDIOVASCULAR PHYSICIAN ASSISTANT - LEAN MANUFACTURING SPECIALIST Work Phone: [facility] Comment on above: Seborrheic dermatiti s of scalp Start: 06-23-2024 End: 06-26-2024 Telephone encounter Jennifer Rocha PA-C Work Phone: [facility] Clinical Communication Comment on above: Test Scheduling Start: 06-05-2024 End: 06-14-2024 Refill Roseline Ariane DO Work Phone: [facility] Comment on above: Essential (primary) hypertension Med Refill Start: 04-13-2024 End: 04-13-2024 Emergency department patient visit MS. VERN THORNEGH Facility:[id number] Start: 03-28-2024 End: 03-28-2024 Office outpatient visit 25 minutes Roseline Thakkar DO Work Phone: [facility] Comment on above: Bipolar I disorder ( HCC) (Primary Dx); Rash; Dysuria; Gastroesophageal reflux disease without esophagitis Start: 03-28-2024 End: 03-28-2024 ambulatory ROSELINE THAKKAR [facility] Start: 03-15-2024 End: 03-21-2024 ambulatory Roya Carlin RN [facility] Clinical Communication Start: 03-15-2024 End: 03-21-2024 Patient encounter procedure Roya Carlin RN [facility] Clinical Communication Start: 03-03-2024 End: 03-03-2024 Emergency department patient visit ANNY MARK MD Facility:[id number] Start: 01-11-2024 End: 01-11-2024 ambulatory JENNIFER ROCHA [facility] Start: 01-11-2024 End: 01-11-2024 Office outpatient visit 10 minutes Jennifer Rocha PA-C Work Phone: [facility] Comment on above: Lymphadenopathy, cer vical (Primary Dx) Start: 01-11-2024 End: 01-11-2024 Office outpatient visit 15 minutes Jennifer Rocha PA-C Work Phone: [facility] Comment on above: Lymphadenopathy, cer vical (Primary Dx) Start: 12-07-2023 Telephone encounter Roseline alberto DO Work Phone: [facility] Comment on above: palpable lymph nodes Start: 11-12-2023 End: 11-12-2023 Office outpatient new 45 minutes Roseline Thakkar DO Work Phone: [facility] Comment on above: Scalp lesion (Primar y Dx); Essential (primary) hypertension; Pure hypercholesterolemia; Encounter for screening mammogram for malignant neoplasm of breast; Elevated serum glucose; Mild intermittent asthma without complication; Gastroesophageal reflux disease without esophagitis; Rash; Anemia, unspecified type Start: 09-23-2023 Telephone encounter Shira cox MD Work Phone: [facility] Clinical Communication Comment on above: Med Refill Start: 09-17-2023 End: 09-17-2023 Emergency department patient visit CARLTON SOTO MD Facility:[id number] Start: 09-16-2023 ambulatory Jennyfermarcial Giron RN [facility] Clinical Communication Start: 09-16-2023 Patient encounter procedure Jennyfer Jon RN [facility] Clinical Communication Start: 07-07-2023 Refill Shira moody MD Work Phone: [facility] Comment on above: Essential (primary) hypertension Start: 06-25-2023 End: 06-25-2023 [facility] Facility:[facility] Start: 06-25-2023 End: 06-25-2023 Patient encounter procedure Ashleejamil Iyer CARDIOVASCULAR PHYSICIAN ASSISTANT.LEAN MANUFACTURING SPECIALIST Work Phone: [facility] Comment on above: Itching (Primary Dx) Start: 05-12-2023 End: 05-12-2023 [facility] Facility:[facility] Start: 05-12-2023 End: 05-12-2023 Subsequent hospital visit by physician Xr [facility] Work Phone: Radiology Comment on above: Acute cough [R05.1] Start: 05-12-2023 End: 05-12-2023 Patient encounter procedure [facility] CARDIOVASCULAR PHYSICIAN ASSISTANT.LEAN MANUFACTURING SPECIALIST Work Phone: [facility] Comment on above: Acute cough (Primary Dx); History of asthma Start: 03-03-2023 Non-patient / Non-visit Dr. Luis Enrique Mcbride Work Phone: [facility] Work Phone: Start: 03-02-2023 Non-patient / Non-visit Dr. Luis Enrique Mcbride Work Phone: [facility] Work Phone: Start: 03-01-2023 End: 03-03-2023 [facility] Start: 03-01-2023 End: 03-03-2023 Evaluation and management of inpatient [facility] Work Phone: Start: 12-22-2022 End: 12-23-2022 Emergency department patient visit MEGHNA LEON EITANJORDI Facility:[facility] Start: 09-16-2022 Don moody MD Work Phone: [facility] Start: 07-24-2022 ambulatory Kalee meadows RN [facility] Clinical Communication Start: 07-24-2022 Patient encounter procedure Kalee Patel RN [facility] Clinical Communication Start: 07-23-2022 ambulatory Marva Dye RN [facility] Clinical Communication Start: 07-23-2022 Patient encounter procedure Marva Dye RN [facility] Clinical Communication Start: 09-16-2021 [facility] visit new patient Lilliameri sonam Y Edison Work Phone: [id number] [address] [place] Work Phone: Start: 01-18-2019 Patient encounter procedure Susan Liangjuan SR-Mykeksrfh-Rszvk Work Phone: Start: 12-01-2018 Patient encounter procedure Susan Oatesguerojuan VN-Uqgnogqvi-Zdvhg Work Phone: Start: 10-21-2018 [facility] Start: 10-14-2018 Patient encounter procedure Susan Matthieu Facility:[id number] Start: 09-27-2018 Patient encounter procedure Susan Matthieu Facility:[id number] Start: 09-06-2018 [facility] Start: 09-02-2018 Patient encounter procedure Susan Liangi Facility:[id number] Start: 08-05-2018 Patient encounter procedure Kathleen Simmsdavidjay [facility] Start: 07-08-2018 [facility] Start: 05-20-2018 Patient encounter procedure MCKENZIE LOMELI [facility] Start: 04-12-2018 Patient encounter procedure Susan [facility] Work Phone: Start: 09-24-2017 Patient encounter procedure Susan [facility] Work Phone: Start: 09-10-2017 Ambulatory Pro Ellis Facility:[facility] Start: 09-10-2017 Patient encounter procedure Susan Sommers RD-Ucsbxxqbd[facility] Work Phone: Start: 07-23-2017 Ambulatory Pro Ellis Facility:[facility] Start: 07-23-2017 Patient encounter procedure Susan JEFFERY[facility] Work Phone: Start: 07-09-2017 Ambulatory Pro Ellis Facility:[facility] Start: 07-09-2017 Patient encounter procedure Susan JEFF[facility] Work Phone: Start: 01-13-2017 End: 01-15-2017 [facility] Start: 01-13-2017 Ambulatory [facility] Facilit y:[facility] Start: 01-05-2017 End: 01-05-2017 Emergency department patient visit [facility] Start: 05-01-2016 End: 05-01-2016 Emergency department patient visit UNKNOWN PROVIDER Facility:[facility] Procedures Date Procedure Procedure Detail Performing Clinician Start: 07-28-2024 Follow-up visit Follow-up ALFREDO SEGOVIA Start: 03-28-2024 Urnls dip stick/tabl et rgnt auto w/o microscopy Roseline Thakkar DO Work Phone: Start: 11-23-2023 Lipid 1996 panel - S arsalan or Plasma Roseline Thakkar DO Work Phone: Start: 05-12-2023 Radiologic exam ches t 2 views Jen Gore APRN.[employer] MANUFACTURING SPECIALIST Work Phone: Start: 05-10-2020 Microscopic observat ion [Identifier] in Cervix by Cyto stain Marva Dye RN Start: 08-02-2019 Colonoscopy Shira woods MD Work Phone: Plan of Treatment Date Care Activity Detail Author Start: 12-19-2047 RSV Immunization for Adults (1 - 1-dose 75+ series) RSV Immunization for Adults (1 - 1-dose 75+ series) [facility] Start: 2032 RSV Immunization aged 60 or older (1 - 1-dose 60+ series) RSV Immunization aged 60 or older (1 - 1-dose 60+ series) [facility] Start: 08-02-2029 Screening for malignant neoplasm of colon [facility] Start: 11-22-2028 Lipid panel Lipid Panel [facility] Start: 04-05-2028 HPV Testing HPV Testing [facility] Start: 04-05-2028 Pap Testing Pap Testing [facility] Start: 04-05-2028 Screening for malignant neoplasm of cervix Cervical Cancer Screening [facility] Start: 11-22-2026 Diabetes mellitus screening Diabetes Screening [facility] Start: 05-13-2025 Depression Monitoring Depression Monitoring [facility] Start: 03-19-2025 Influenza vaccination Influenza Vaccine (Season Ended) [facility] Start: 11-22-2024 Diabetes mellitus screening Diabetes Screening [facility] Start: 11-14-2024 End: 11-14-2024 Patient encounter procedure [facility] Start: 10-18-2024 End: 10-18-2025 C reactive protein [Mass/volume] in Serum or Plasma C-reactive protein Lab Routine Acute bilateral knee pain Family history of rheumatoid arthritis Expected: 10/18/2024 (Approximate), Expires: 10/18/2025 [facility] Comment on above: Expected: 10/18/2024 (Approximate), Expi res: 10/18/2025 Start: 10-18-2024 End: 10-18-2025 Erythrocyte sedimentation rate Sedimentation rate, automated Lab Routine Acute bilateral knee pain Family history of rheumatoid arthritis Expected: 10/18/2024 (Approximate), Expires: 10/18/2025 [facility] Comment on above: Expected: 10/18/2024 (Approximate), Expi res: 10/18/2025 Start: 10-18-2024 End: 10-18-2025 Magnesium [Mass/volume] in Serum or Plasma Magnesium Lab Routine Acute bilateral knee pain Expected: 10/18/2024 (Approximate), Expires: 10/18/2025 [facility] Comment on above: Expected: 10/18/2024 (Approximate), Expi res: 10/18/2025 Start: 10-18-2024 End: 10-18-2025 Nuclear Ab [Titer] in Serum by Immunofluorescence ABBIE Lab Routine Acute bilateral knee pain Family history of rheumatoid arthritis Expected: 10/18/2024 (Approximate), Expires: 10/18/2025 [facility] Comment on above: Expected: 10/18/2024 (Approximate), Expi res: 10/18/2025 Start: 10-18-2024 End: 10-18-2025 Renal function 2000 panel - Serum or Plasma Renal function panel Lab Routine Acute bilateral knee pain Expected: 10/18/2024 (Approximate), Expires: 10/18/2025 [facility] Comment on above: Expected: 10/18/2024 (Approximate), Expi res: 10/18/2025 Start: 10-18-2024 End: 10-18-2025 Rheumatoid factor [Units/volume] in Serum or Plasma Rheumatoid factor Lab Routine Acute bilateral knee pain Family history of rheumatoid arthritis Expected: 10/18/2024 (Approximate), Expires: 10/18/2025 [facility] Comment on above: Expected: 10/18/2024 (Approximate), Expi res: 10/18/2025 Start: 10-18-2024 End: 10-18-2025 XR Knee - bilateral 4 Views XR knee 4+ views bilateral Imaging Routine Acute bilateral knee pain Expected: 10/18/2024, Expires: 10/18/2025 [facility] Work Phone: Comment on above: Expected: 10/18/2024, Expires: Start: 07-04-2024 End: 07-04-2024 Patient encounter procedure 07/04/2024 2:00 PM EST Office Visit [facility] [place] [address] [place] [address] Ramya Segovia, CARDIOVASCULAR PHYSICIAN ASSISTANT - LEAN MANUFACTURING SPECIALIST [address] [place] [address] [facility] [place] Start: 06-07-2024 Subsequent hospital visit by physician 06/07/2024 1:00 PM EST Hospital Encounter [facility] [address] [place] [id number] Jennifer Rocha PA-C [address] [place] [address] [facility] [place] [facility] Start: 05-13-2024 Depression Monitoring Depression Monitoring [facility] Start: 03-28-2024 End: 03-28-2025 Bacteria identified in Urine by Culture Urine culture Microbiology Routine Dysuria Expected: 03/28/2024 (Approximate), Expires: 03/28/2025 [facility] Work Phone: Comment on above: Expected: 03/28/2024 (Approximate), Expi res: 03/28/2025 Start: 03-28-2024 End: 03-28-2024 Patient encounter procedure 03/28/2024 1:40 PM EDT Office Visit [facility] [address] [place] [id number] Roseline Thakkar DO [address] [place] [address] [facility] Start: 03-19-2024 COVID-19 Vaccine ( season) COVID-19 Vaccine ( season) [facility] Start: 03-19-2024 COVID-19 Vaccine ( season) COVID-19 Vaccine ( season) [facility] Start: 03-19-2024 Influenza vaccination [facility] Start: 02-11-2024 End: 02-11-2024 Patient encounter procedure 02/11/2024 11:20 AM EDT Office Visit [facility] [address] [place] [id number] Roseline Thakkar DO [address] [place] [address] [facility] Start: 01-11-2024 End: 01-10-2025 US Head and neck soft tissue US head neck soft tissue Imaging Routine Lymphadenopathy, cervical Expected: 01/11/2024, Expires: 01/10/2025 [facility] [employer] Work Phone: Comment on above: Expected: 01/11/2024, Expires: Start: 12-16-2023 End: 12-16-2023 Patient encounter procedure 12/16/2023 2:40 PM EDT Office Visit [facility] [address] [place] [id number] Roseline Thakkar DO [address] [place] [address] [facility] Start: 11-12-2023 End: 11-11-2024 CBC panel - Blood by Automated count CBC Lab Routine Essential (primary) hypertension Expected: 11/12/2023 (Approximate), Expires: 11/11/2024 [facility] [employer] Comment on above: Expected: 11/12/2023 (Approximate), Expi res: 11/11/2024 Start: 11-12-2023 End: 11-11-2024 Comprehensive metabolic 1998 panel - Serum or Plasma Comprehensive metabolic panel Lab Routine Essential (primary) hypertension Expected: 11/12/2023 (Approximate), Expires: 11/11/2024 [facility] [employer] Comment on above: Expected: 11/12/2023 (Approximate), Expi res: 11/11/2024 Start: 11-12-2023 End: 01-11-2025 DBT Breast - bilateral screening Bilateral screening mammogram with tomosynthesis Imaging Routine Encounter for screening mammogram for malignant neoplasm of breast Expected: 11/12/2023, Expires: 01/11/2025 [facility] Comment on above: Expected: 11/12/2023, Expires: Start: 11-12-2023 End: 11-11-2024 Hemoglobin A1c measurement Hemoglobin A1c Lab Routine Elevated serum glucose Expected: 11/12/2023 (Approximate), Expires: 11/11/2024 [facility] Work Phone: Comment on above: Expected: 11/12/2023 (Approximate), Expi res: 11/11/2024 Start: 11-12-2023 End: 11-11-2024 Lipid 1996 panel - Serum or Plasma Lipid panel Lab Routine Pure hypercholesterolemia Expected: 11/12/2023 (Approximate), Expires: 11/11/2024 [facility] Comment on above: Expected: 11/12/2023 (Approximate), Expi res: 11/11/2024 Start: 11-12-2023 End: 11-11-2024 Thyrotropin [Units/volume] in Serum or Plasma TSH Lab Routine Essential (primary) hypertension Expected: 11/12/2023 (Approximate), Expires: 11/11/2024 [facility] Comment on above: Expected: 11/12/2023 (Approximate), Expi res: 11/11/2024 Start: 09-29-2023 End: 09-29-2023 Patient encounter procedure 09/29/2023 2:00 PM EDT Office Visit [facility] [address] [place] [id number] Roseline Thakkar DO [address] [place], [place] [id number] [facility] Start: 07-27-2023 End: 07-27-2023 Patient encounter procedure 07/27/2023 11:00 AM EST Office Visit [facility] [address] [place] [phone] Shira Rider MD [address] [place], [place] [id number] [facility] Start: 05-10-2023 Screening for malignant neoplasm of cervix [facility] Start: 03-19-2023 COVID-19 Vaccine ( season) COVID-19 Vaccine ( season) [facility] Start: 03-19-2023 Influenza vaccination [facility] Start: 03-03-2023 Patient discharge [facility] Start: 03-02-2023 End: 03-03-2023 [facility] Start: 03-02-2023 Assessment using assessment scale [facility] Start: 03-02-2023 Provision of activity privileges [facility] Start: 03-01-2023 End: 03-02-2023 [facility] Start: 03-01-2023 Following clinical pathway protocol [facility] Start: 03-01-2023 Assessment of risk of venous thromboembolism [facility] Start: 03-01-2023 Inhalation therapy procedure [facility] Start: 03-01-2023 Introduction of urinary catheter [facility] Start: 03-01-2023 Notification of physician [facility] Start: 03-01-2023 Oxygen therapy [facility] Start: 03-01-2023 Provision of activity privileges [facility] Start: 03-01-2023 Referral to service [facility] Start: 03-01-2023 Vital signs measurements [facility] Start: 03-01-2023 Admission procedure [facility] Start: 03-01-2023 [facility] Start: 03-01-2023 Patient referral to dietitian [facility] Start: 2022 Shingrix Vaccine (1 of 2) Shingrix Vaccine (1 of 2) [facility] Start: 2022 Zoster Vaccines (1 of 2) Zoster Vaccines (1 of 2) [facility] Start: 09-18-2022 Diabetes mellitus screening Diabetes Screening [facility] Start: 07-19-2022 Depression Assessment Depression Assessment [facility] Start: 03-19-2022 Influenza vaccination Influenza Vaccine (#1) [facility] Start: 2017 Cologuard (FIT-DNA) Cologuard (FIT-DNA) [facility] Start: 2017 Colonoscopy Colonoscopy [facility] Start: 2017 Colorectal Cancer Screening Colorectal Cancer Screening [facility] Start: [address] Colonography [facility] Start: 2017 Diabetes Screening Diabetes Screening [facility] Start: 2017 Fecal Occult Blood Fecal Occult Blood [facility] Start: 2017 Lipid 1996 panel - Serum or Plasma Lipid Screening [facility] Start: 2017 Lipid panel Lipid Screening [facility] Start: 2017 Screening for malignant neoplasm of colon [facility] Start: 2017 Sigmoidoscopy Sigmoidoscopy [facility] Start: 2012 Mammography Mammogram Screening [facility] Start: 2012 Screening for malignant neoplasm of breast [facility] Start: 07-20-2012 DTaP/Tdap/Td Vaccines (1 - Tdap) DTaP/Tdap/Td Vaccines (1 - Tdap) [facility] Start: 2002 Screening for malignant neoplasm of cervix HPV/Cotest [facility] Start: 12-19-1991 DTaP/Tdap/Td Vaccines (1 - Tdap) DTaP/Tdap/Td Vaccines (1 - Tdap) [facility] Start: 12-19-1991 Hepatitis A Vaccines (1 of 2 - Risk 2-dose series) Hepatitis A Vaccines (1 of 2 - Risk 2-dose series) [facility] Start: 12-19-1991 Hepatitis B Vaccine (1 of 3 - 19+ 3-dose series) Hepatitis B Vaccine (1 of 3 - 19+ 3-dose series) [facility] Start: 12-19-1991 Hepatitis B Vaccines (1 of 3 - 19+ 3-dose series) Hepatitis B Vaccines (1 of 3 - 19+ 3-dose series) [facility] Start: 12-19-1991 Pneumococcal Vaccine: 50+ Years (1 of 2 - PCV) Pneumococcal Vaccine: 50+ Years (1 of 2 - PCV) [facility] Start: 12-19-1991 Urine microalbumin profile DTaP,Tdap,Td Vaccine (1 - Tdap) [facility] Start: 1990 Anxiety Screening Anxiety Screening [facility] Start: 1990 Depression Screening Depression Screening [facility] Start: 1984 Depresssion Monitoring Depresssion Monitoring [facility] Start: 1978 Pneumococcal vaccination [facility] Start: 1978 Pneumococcal Vaccine: Pediatrics (0 to 5 Years) and At-Risk Patients (6 to 64 Years) (1 of 2 - PCV) Pneumococcal Vaccine: Pediatrics (0 to 5 Years) and At-Risk Patients (6 to 64 Years) (1 of 2 - PCV) [facility] Start: 1973 Hepatitis A Vaccines (1 of 2 - Risk 2-dose series) Hepatitis A Vaccines (1 of 2 - Risk 2-dose series) [facility] Start: 1973 MMR Vaccines (1 of 1 - Standard series) MMR Vaccines (1 of 1 - Standard series) [facility] Start: 06-19-1973 Covid-19 Vaccine (#1) Covid-19 Vaccine (#1) [facility] Start: 1972 Hepatitis B Vaccine (1 of 3 - 3-dose series) Hepatitis B Vaccine (1 of 3 - 3-dose series) [facility] Start: 1972 Hepatitis B Vaccines (1 of 3 - 3-dose series) Hepatitis B Vaccines (1 of 3 - 3-dose series) [facility] Start: 1972 Lipid panel Lipid Panel [facility] Start: 1972 Screening for malignant neoplasm of colon [facility] HIV 1+2 Ab+HIV1 p24 Ag [Presence] in Serum or Plasma by Immunoassay [facility] Patient referral [facility] Work Phone: PCR for Hepatitis C [facility] Treponema sp Ab [Pre sence] in Serum [facility] Immunizations Immunization Date Immunization Notes Care Provider Yvon sharma 05-01-2013 influenza virus vacc ine, unspecified formulation Shira Rider MD Work Phone: [facility] 07-19-2012 tetanus and diphther ia toxoids, not adsorbed, for adult use Jennyfer Jon RN [facility] 07-19-2012 tuberculin skin test ; purified protein derivative solution, intradermal Jennyfer Jon RN [facility] Payers Date Payer Category Payer Medicaid HMO [employer] ODM [id number] 2023 Unknown [id number] 2023 Self-pay [id number] 2022 Unknown [id number] 2022 Medicaid [id number] 2016 Unknown [id number] 2013 Medicaid [id number] 2008 Unknown 1972 Unknown [id number] 1972 Unknown [id number] 2.16.840.1.145186.3.579.2.6 1972 Unknown [id number] [id number] 1972 Unknown [id number] 2.16.840.1.498232.3.579.2.8 1972 Unknown [id number] 2.16.840.1.448549.3.579.2.8 1972 Unknown [id number] 2.16.840.1.711576.3.579.2. 1972 Unknown [id number] 2.16.840.1.150619.3.579.2.8 1972 Unknown [id number] 2.16.840.1.409038.3.579.2.8 1972 Unknown [id number] [id number] 1972 Unknown [id number] [id number] 1972 Unknown [id number] 2.16.840.1.129886.3.579.2.159 1972 Unknown [id number] [id number] Unknown [id number] [id number] Unknown [id number] [id number] Unknown [id number] [id number] Unknown [id number] Social History Date Type Detail Facility Start: 05-12-2023 End: 11-12-2023 Former smoker Former smoker [id number]Pwid[facility] [address] [place] Work Phone: Start: 03-01-2023 End: 03-01-2023 Tobacco smoking status VTIS Unknown if ever smoked [facility] Start: 03-11-2019 None [facility] Start: 03-11-2019 Spouse/ Signif icant Other [facility] Start: 1970 Sex Assigned At Female [facility] Start: 05-12-2023 [facility] History of tobacco use Pipe Smoker [facility] History of tobacco use Passive smoker [facility] Start: 05-12-2023 End: 02-11-2024 Tobacco use and exposure Smokeless tobacco non-user [facility] Start: 05-12-2023 End: 11-12-2023 Tobacco use panel [facility] Start: 1972 Sex Assigned At Not on file [facility] Start: 01-11-2024 End: 02-11-2024 Tobacco smoking status NHIS Ex-smoker [facility] End: 11-06-2014 History of tobacco use Current smoker [facility] End: 11-06-2014 History of tobacco use Cigarette Smoker [facility] Start: 07-07-2022 End: 11-14-2024 Alcohol intake Current non-drinker of alcohol (finding) [facility] Has the JAN[employer], [employer], or water [employer] threatened to shut off services in your home in past 12Mo No [facility] Do you belong to any clubs or organizations such as tenriism groups, unions, fraternal or athletic groups, or school groups? Yes [facility] Are you now , , , , never or living with a partner? Never [facility] How often to you hav e a drink containing alcohol? Never [facility] How many standard drinks containing alcohol do you have on a typical day? Patient does not drink [facility] How hard is it for y ou to pay for the very basics like food, housing, medical care, and heating Somewhat hard [facility] Do you feel stress - tense, restless, nervous, or anxious, or unable to sleep at night because your mind is troubled all the time - these days [OSQ] To some extent [facility] (I/We) worried wheth er (my/our) food would run out before (I/we) got money to buy more. Sometimes true [facility] Start: 02-16-2022 Sex Female (finding) [facility] [employer] NEGATED: Highlighted row - - SP-Bfrpuovmq-Tpypt Work Phone: Goals Date Patient Goal Desired Activity /State Functional Status Date Assessment Result Facility 03-03-2023 Functional status Ambulates [facility] Work Phone: NEGATED: Highlighted row Functional performance Functional status health issues are not documented Disease MS-Ytcuavkxs-Fvzmh Work Phone: Mental Status Date Assessment Result Facility 03-03-2023 Cognitive function Voice/Name [facility] Work Phone: NEGATED: Highlighted row Cognitive function [Interpretation] Cognitive status health issues are not documented Disease DH-Xsskeeumo-Nwhvg Work Phone: Clinical Notes 07-23-2022 to 11-28-2024 Telephone Encounter - Fatimah Cerda LPN - 11/28/2024 4:02 PM EDTTelephone Encounter - Fatimah Cerda LPN - 11/28/2024 4:02 PM EDTTelephone Encounter - Em Thornton RN - 11/28/2024 2:02 PM EDT Note Date & Type Note Facility 11-28-2024 Telephone encounter Note noted [facility] 11-28-2024 Miscellaneous Notes noted S: Patient spoke [...] to urinate (i.e., urgency) Protocols used: Urinary [id number] documented in this encounter [facility] 11-28-2024 Telephone encounter Note S: Patient spoke [...] Advised that she could be seen in [facility] up until 7pm. Patient voiced understanding. Advised [...] to urinate (i.e., urgency) Protocols used: Urinary Skulavnv-AQQUY-GX [facility] 10-18-2024 Evaluation + Plan note Associated Problem(s): Varicose veins of both lower extremities [facility] 10-18-2024 History of Present illness Narrative Images from the original note were not included. [facility] [address] [facility] [id number] Visit Type: Same Day PCP: Roseline Thakkar [...] for 12-14 hours a day - Wears [place] shoes, previously wore steel-sole shoes which caused [...] 10/20/2024 11:33 PM documented in this encounter [facility] 10-18-2024 Miscellaneous Notes Associated Problem(s): Varicose veins of both lower extremities documented in this encounter [facility] 09-04-2024 Telephone encounter Note S: Patient spoke [...] urination Protocols used: Urination Pain - ADULT-[place] [facility] 09-04-2024 Miscellaneous Notes S: Patient spoke with [...] Pain - ADULT-[place] documented in this encounter [facility] 07-28-2024 History of Present illness Narrative Images from the original note were not included. [facility] [address] [facility] [address] Dept: [phone] Dept Visit Date: 07/28/24 HPI: October Ryley [...] are pruritic. We have no records from [facility], we have requested the patient to complete zabrina prior but no acesss. I have minimal reports via care everywhere. Last ed visit I see was 04/13, so three months ago. A culture was obtained, mrsa. This is when she was prescribed linezolid. [place] it got better but then worsened. Current [...] History: Diagnosis Date SEGUNDO (acute kidney injury) (FORM[facility]LY [facility]) 01/06/2016 Anxiety Asthma Bipolar disorder ([facility]) Bipolar I disorder ([facility]) 11/16/2019 control Mirena 10/10/14 BMI 33.0-33.9,adult Chronic [...] today. Need to get those records from [facility]-she will complete an zabrina at check out- [...] fail to improve. Goals None 'Ramya Segovia APRN-[employer] 07/28/2024 12:50 PM documented in this encounter [facility] 07-28-2024 History of Present illness Narrative Images from the original note were not included. [facility] [address] [facility] [address] Dept: [phone] Dept Visit Date: 07/28/24 HPI: October Ryley [...] are pruritic. We have no records from [facility], we have requested the patient to complete zabrina prior but no acesss. I have minimal reports via care everywhere. Last ed visit I see was 04/13, so three months ago. A culture was obtained, mrsa. This is when she was prescribed linezolid. [place] it got better but then worsened. Current [...] today. Need to get those records from [facility]-she will complete an zabrina at check out- [...] 07/28/2024 12:50 PM documented in this encounter [facility] 07-28-2024 Miscellaneous Notes Addended by: RAMYA SEGOVIA on: 08/01/2024 09:14 AM Modules accepted: Level of Service documented in this encounter [facility] 07-28-2024 Note Addended by: RAMYA SEGOVIA on: 08/01/2024 09:14 AM Modules accepted: Level of Service [facility] 07-03-2024 Telephone encounter Note Spoke with pt advising message She advised her sx haven't resolved after finishing the medication Pt tried to get a refill but DDM advised she needs seen by the office Appt scheduled with tomorr [facility] 07-03-2024 Miscellaneous Notes Spoke with pt advising message She advised her sx haven't resolved after finishing the medication Pt tried to get a refill but DDM advised she needs seen by the office Appt scheduled with tomorr She needs to talk to [facility] about this. Not sure why she needs a refill of the med she already took for the mrsa. Name of caller: October Contact phone number: [phone] Relationship to Patient: patient Provider: Ariane Practice: [...] know Mychart message sent and needing for [facility] information to get list of Rx pt was on. Lmom to fill out ZABRINA for Rx from [facility]. Please obtain records from [facility]. Name of caller: October Contact phone number: [phone] Relationship to Patient: patient Provider: ariane Practice: lynda Chief Complaint/Reason for Call: [facility]rsa [...] their call: no documented in this encounter [facility] 07-03-2024 Telephone encounter Note She needs to talk to [facility] about this. Not sure why she needs a refill of the med she already took for the mrsa. [facility] 06-30-2024 Telephone encounter Note Name of caller: October Contact phone number: [phone] Relationship to Patient: patient Provider: Ariane Practice: Lynda FRASER Chief Complaint/Reason for Call: Patient called back in with the medication name for her MRSA. It is called ZYVIX (Lineolid). Please note and advise. Best time of day caller can be reached: any Patient advised that office/PCP has 24-48 business hours to return their call: No [facility] 06-30-2024 Miscellaneous Notes Name of caller: October Contact phone number: [phone] Relationship to Patient: patient Provider: Ariane Practice: Lynda FRASER Chief Complaint/Reason for Call: Patient called back in with the medication name for her MRSA. It is called DARYIX (Lineolid). Please note and advise. Best time of day caller can be reached: any Patient advised that office/PCP has 24-48 business hours to return their call: No Lmom letting pt know [employer] message sent and needing for [facility] to get list of Rx pt was on. Lmom to fill out ZABRINA for Rx from [facility]. Please obtain records from [facility]. Name of caller: October Contact phone number: [phone] Relationship to Patient: patient Provider: ariane Practice: lynda Chief Complaint/Reason for Call: [facility] her she [facility] mrsa [...] their call: no documented in this encounter [facility] 06-23-2024 Telephone encounter Note We have been unable to reach your patient to schedule their testing. Test Name: Head and neck ultrasound 1st Attempt: 01/15/24 via [employer] message 2nd Attempt: Cancelled/no show 01/19/24, 01/29/24, 06/07/24 TE sent to office, cancel request 06/23/24 [facility] 06-23-2024 Miscellaneous Notes We have been unable to reach your patient to schedule their testing. Test Name: Head and neck ultrasound 1st Attempt: 01/15/24 via [employer] message 2nd Attempt: Cancelled/no show 01/19/24, 01/29/24, 06/07/24 TE sent to office, cancel request 06/23/24 documented in this encounter [facility] 06-20-2024 Telephone encounter Note Lmom letting pt know [employer] message sent and needing for [facility] information to get list of Rx pt was on. [facility] 06-20-2024 Miscellaneous Notes Lmom letting pt know [employer] message sent and needing for [facility] information to get list of Rx pt was on. Lmom to fill out ZABRIAN for Rx from [facility]. Please obtain records from [facility]. Name of caller: October Contact phone number: [phone] Relationship to Patient: patient Provider: ariane Practice: lynda Chief Complaint/Reason for Call: [facility] mrsa [...] their call: no documented in this encounter [facility] 06-16-2024 Telephone encounter Note Lmom to fill out ZABRINA for Rx from [facility]. [facility] 06-16-2024 Miscellaneous Notes Lmom to fill out ZABRINA for Rx from [facility]. Please obtain records from [facility]. Name of caller: October Contact phone number: [phone] Relationship to Patient: patient Provider: ariane Practice: lynda Chief Complaint/Reason for Call: [facility] her she has mrsa [...] their call: no documented in this encounter [facility] 06-06-2024 Telephone encounter Note Please obtain records from [facility]. [facility] 06-06-2024 Miscellaneous Notes Please obtain records from [facility]. Name of caller: October Contact phone number: [phone] Relationship to Patient: patient Provider: ariane Practice: lynda Chief Complaint/Reason for Call: [facility] her she has mrsa [...] their call: no documented in this encounter [facility] 06-05-2024 Telephone encounter Note Name of caller: October Contact phone number: [phone] Relationship to Patient: patient Provider: Ariane Practice: Lynda Primary Chief Complaint/Reason for Call: Patient said she needs her amlodipine sent to the [email or web address] on . Please advise Best time of day caller can be reached: any Patient advised that office/PCP has 24-48 business hours to return their call: No [facility] 06-05-2024 Miscellaneous Notes Name of caller: October Contact phone number: [phone] Relationship to Patient: patient Provider: Ariane Practice: Lynda Primary Chief Complaint/Reason for Call: Patient said she needs her amlodipine sent to the [facility] on [address] Please advise Best time of day caller can be reached: any Patient advised that office/PCP has 24-48 business hours to return their call: No documented in this encounter [facility] 06-05-2024 Telephone encounter Note Name of caller: October Contact phone number: [phone] Relationship to Patient: patient Provider: ariane Practice: lynda Chief Complaint/Reason for Call: [facility] her she has mrsa [...] business hours to return their call: no [facility] 04-13-2024 Note ED Nursing Discharge Summary Entered On: 04/13/2024 17:21 EDT Performed On: 04/13/2024 17:00 EDT by Agustina Goodman RN MS Information [id number] ED IV's : No IV ED IV Site Assessment : No IV ED Vitals Completed : Yes ED Final Assessment Completed : Yes ED Progress Note Completed : Yes Complete all PRN/Pain response forms? : Yes ED Disassociate Patient from Monitor : Yes Updated Depart Time : Yes ED Belongings sent w patient [id number] : Not applicable Agustina Goodman RN - 04/13/2024 17:21 EDT Education Instructions given to : Patient TeachBack Methodology : Explanation, Printed Material Barriers to Learning : None evident Agustina Goodman RN - 04/13/2024 17:21 EDT ED Assistance Summary Assistance Given? : No Agustina Goodman RN - 04/13/2024 17:21 EDT [facility] 03-28-2024 History of Present illness Narrative Images from the original note were not included. [facility] [place] [address] [facility] [address] [facility] [address] Visit Type: Office Visit PCP: Roseline [...] scabies. Notes she is following with the gate keeper. Has appt with derm on Wednesday. (Dr. [...] 03/28/2024 5:21 PM documented in this encounter [facility] 03-15-2024 Telephone encounter Note S: Patient spoke [...] less.) Protocols used: Rash or Redness - [id number] [facility] 03-15-2024 Miscellaneous Notes S: Patient spoke with [...] less.) Protocols used: Rash or Redness - [id number]-[id number] documented in this encounter [facility] 03-03-2024 Note ED Nursing Discharge Summary Entered On: 03/03/2024 12:07 EDT Performed On: 03/03/2024 12:00 EDT by Pat TRACY, Ramya FRANKLIN Information [id number] ED IV's : No IV ED IV Site Assessment : No IV ED Vitals Completed : Yes ED Final Assessment Completed : Yes ED Progress Note Completed : Yes Complete all PRN/Pain response forms? : Yes ED Disassociate Patient from Monitor : N/A Updated Depart Time : Yes ED Belongings sent w patient [id number] : Not applicable Ramya Stewart RN - [...] Ramya Stewart RN - 03/03/2024 12:07 EDT [facility] 01-11-2024 History of Present illness Narrative Images from the original note were not included. [facility] [address] [facility] [address] [facility] [address] Dept: [phone] Dept Reason for Visit: Neck Mass (Lymph node, x 3 wks, bilateral, painful) Assessment and Plan 1. Lymphadenopathy, cervical - US head neck soft tissue Follow up if symptoms worsen or fail to improve. Subjective HPI Pt presents today for evaluation of lymph nodes in her neck. Was seen by the gate keeper and was told to follow up with [...] Jennifer Rocha PA-C documented in this encounter [facility] 01-11-2024 History of Present illness Narrative Images from the original note were not included. [facility] [address] [facility] [address] [facility] [address] Dept: [phone] Dept Reason for Visit: Neck Mass (Lymph node, x 3 wks, bilateral, painful) Assessment and Plan 1. Lymphadenopathy, cervical - US head neck soft tissue Follow up if symptoms worsen or fail to improve. Subjective HPI Pt presents today for evaluation of lymph nodes in her neck. Was seen by the gate keeper and was told to follow up with [...] Jennifer Rocha PA-C documented in this encounter [facility] 01-11-2024 Miscellaneous Notes Addended by: JENNIFER ROCHA on: 01/12/2024 11:20 AM Modules accepted: Level of Service documented in this encounter [facility] 01-11-2024 Note Addended by: JENNIFER ROCHA on: 01/12/2024 11:20 AM Modules accepted: Level of Service [facility] 01-11-2024 Note Addended by: JENNIFER ROCHA on: 01/12/2024 11:20 AM Modules accepted: Level of Service [facility] 12-08-2023 Telephone encounter Note Yes. No urgency. [facility] 12-08-2023 Miscellaneous Notes Yes. No urgency. Name of caller: October Contact phone number: [phone] Relationship to Patient: Patient Provider: Practice: [facility] Chief Complaint/Reason for Call: Patient [...] Name of caller: Annita Contact phone number: [phone] Relationship to Patient: [facility] Provider: Dr. Thakkar Practice: [facility] Chief Complaint/Reason for Call: (pt was not on the line to triage) PT was seen downstairs at [facility] today and it was discovered that pt has palpable lymph nodes and was advised to be seen immediately. The office states they can fax any clinical documentation if need be. Please advise pt on next steps. Best time of day caller can be reached: any Patient advised that office/PCP has 24-48 business hours to return their call: Yes documented in this encounter [facility] 12-08-2023 Telephone encounter Note Name of caller: October Contact phone number: [phone] Relationship to Patient: Patient Provider: Practice: [facility] Chief Complaint/Reason for Call: Patient called in regarding voicemail left. Patient stated she only can come in the afternoon, scheduled 12/15 with . Please advise. Best time of day caller can be reached: N/A Patient advised that office/PCP has 24-48 business hours to return their call: N/A [facility] 12-08-2023 Telephone encounter Note Sent mychart message [facility] 12-08-2023 Telephone encounter Note Left message on patient's voicemail asking her to call back and schedule an office visit. If patient calls, please schedule first available 20 OV. [facility] 12-08-2023 Telephone encounter Note 20 fine. [facility] 12-07-2023 Telephone encounter Note That's fine. [facility] 12-07-2023 Telephone encounter Note Name of caller: Annita Contact phone number: [phone] Relationship to Patient: [facility] Provider: Dr. Thakkar Practice: [facility] Chief Complaint/Reason for Call: (pt was not on the line to triage) PT was seen downstairs at [facility] today and it was discovered that pt has palpable lymph nodes and was advised to be seen immediately. The office states they can fax any clinical documentation if need be. Please advise pt on next steps. Best time of day caller can be reached: any Patient advised that office/PCP has 24-48 business hours to return their call: Yes [facility] 11-12-2023 History of Present illness Narrative Images from the original note were not included. [facility] [address] [facility] [address] [facility] [address] Visit Type: New To Provider PCP: [...] She was getting substance abuse treatment at [place] [address]. Currently living in a sober [place] [facility]. Psych is through [facility]. She has the following concerns today: Seen by UC at [facility] for scalp lesions and lymph node inflammation. [...] (HCC) Bipolar I disorder (HCC) 11/16/2019 control [facility] 10/10/14 BMI 33.0-33.9,adult Chronic back pain Degeneration [...] 0 min Stress: Stress Concern Present (11/12/2023) [employer] - Occupational Stress Questionnaire Feeling of Stress : To some extent Social Connections: Moderately Integrated (11/12/2023) Social Connection and Isolation Panel [NHANES] Frequency of Communication with Friends and Family: More than three times a week Frequency of Social Gatherings with Friends and Family: Once a week Attends Denominational Services: More than 4 times per year [...] for this visit. documented in this encounter [facility] 09-23-2023 Telephone encounter Note error [facility] 09-23-2023 Miscellaneous Notes error documented in this encounter [facility] 09-17-2023 Note ED Nursing Discharge Summary Entered On: 09/17/2023 19:06 EST Performed On: 09/17/2023 19:05 EST by Agustina Goodman RN DC Information [id number] ED IV's : No IV ED IV Site Assessment : No IV ED Vitals Completed : Yes ED Final Assessment Completed : Yes ED Progress Note Completed : Yes Complete all PRN/Pain response forms? : N/A ED Disassociate Patient from Monitor : Yes Updated Depart Time : Yes ED Belongings sent w patient [id number] : Not applicable Agustina Goodman RN - 09/17/2023 19:06 EST Education Instructions given to : Patient TeachBack Methodology : Explanation, Printed Material Barriers to Learning : None evident Agustina Goodman RN - 09/17/2023 19:06 EST ED Assistance Summary Assistance Given? : No Agustina Goodman RN - 09/17/2023 19:06 EST [facility] 09-16-2023 Telephone encounter Note S: RADHAMES Sheppard with [facility] spoke with [facility] nurse regarding neck lump. B: Onset of symptoms/concern today. A: [employer] Production Underwriter states that patient is at Urgent Care [...] the day. RADHAMES Sheppard advised. Per RADHAMES hSeppard, I am just going to send the patient the the ER for a full work up then. No further needs at this time. Reason for Disposition Doctor (or COPY LATHE TENDER/PA) call to PCP Protocols used: PCP Call - No [id number] [facility] 09-16-2023 Miscellaneous Notes S: RADHAMES Sheppard with [facility] spoke with [facility] nurse regarding neck lump. B: Onset of symptoms/concern today. A: Claire Sheppard Production Underwriter states that patient is at Urgent Care [...] this time. Reason for Disposition Doctor (or COPY LATHE TENDER/PA) call to PCP Protocols used: PCP Call - No [id number] documented in this encounter [facility] 07-07-2023 Telephone encounter Note Patient has not been seen by you since 2019, has an appt 07/27/23. Dr. Duong sees and rx's topamax and tramadol. If you prefer not to rx until appt, we can call and let patient know. [facility] 07-07-2023 Miscellaneous Notes Patient has not been [...] medication tab): 12.16.21 documented in this encounter [facility] 07-07-2023 Telephone encounter Note Patient states she [...] of last refill (see medication tab): 12.16.21 [facility] 06-25-2023 Note HNO ID: [id number] Author: Ashlee Iyer APRN.TERI Service: ? Author [...] up if itching continues Ashlee Iyer APRN.TERI [facility] 06-25-2023 History of Present illness Narrative [...] Follow up if itching continues Ashlee Iyer APRN.LEAN MANUFACTURING SPECIALIST documented in this encounter [facility] 05-12-2023 Note HNO ID: [id number] Author: Jen Gore APRN.LEAN MANUFACTURING SPECIALIST Service: ? Author Type: Nurse Practitioner Type: [...] PREDNISONE 10 MG TABLET Jen Gore APRN.TERI [facility] 05-12-2023 Note HNO ID: [id number] Author: Radha Delacruz RT(R) Service: ? Author Type: Home Improvement Installer Type: Progress Notes Filed: 05/12/2023 4:06 PM [...] RT Roxane(R) May 12, 2023 3:57 PM [facility] 05-12-2023 History of Present illness Narrative [...] - PREDNISONE 10 MG TABLET Jen Gore APRN.LEAN MANUFACTURING SPECIALIST documented in this encounter [facility] 03-03-2023 Note [facility] Medical Records Department [address] [place] [address] Discharge Summary 03/03/23 1058 MR#: [id number] Acct: [id number] Name: RYLEYOctober Rep #: [id number] : 1970 52 From: Taylor Alarcon DO PCP: Dr. Shira Rider MD Status:ADM IN [facility] Prov[facility] Date of Admission: 03/01/23 Date of [...] who presented to the emergency department at [facility] on 03/01/2023 for acute opiate withdrawal. She [...] habitus and well nourished Constitutional Narrative: Middle-aged, -Kittitian female, sitting up in bed watching television, [...] Normal Activity Meaning (more content not included)... [facility] 03-02-2023 Progress note Note Date/Time March 02, 2023 12:43pm [facility] Medical Records Department [address] [place] [address] Progress Note - Hospitalist 03/02/23 1240 MR#: [id number] Acct: [id number] Name: RYLEYOctober Rep #:[id number] : 1970 52 From: Taylor Alarcon DO PCP: Dr. Shira Rider MD Status:ADM IN Location: [place] [address] Reason for Visit Reason for Visit: Opiate [...] habitus and well nourished Constitutional Narrative: Middle-aged, -Kittitian female, sitting up in bed watching television, [...] frequent ambulation Charges/Coding Visit Charges Inpatient E&M: 96687 Subs Hosp L1 03/02/23 1243 <Electronically signed by Taylor Alarcon DO> Cosigner Signature (if applicable): CC: ~ Signed [facility] Work Phone: 1(803) 988-713508-14-2023 Progress note Author Taylor Alarcon [facility] March 01, 2023 8:19am Note Date/Time March 01, 2023 8: 04am [facility] Medical Records Department [address] [place] [address] Progress Note - Hospitalist 03/01/23 0759 MR#: [id number] Acct: [id number] Name: RYLEY Rep #:[id number] : 1970 52 From: Taylor Alarcon DO PCP: Dr. Shira Rider MD Status:ADM IN Location: [place] [address] Reason for Visit Reason for Visit: Acute opiate withdrawal Subjective Subjective Ms. Hedrick is a 52-year-old white female with a history of opiate abuse who presented to the emergency department at [facility] on 03/01/2023 andacute opiate withdrawal. She is [...] % (Auto) 54.0, Lymph % (Auto) 32.7, [place]% (Auto) 7.2, Eos % (Auto) 4.9, Baso [...] Cosigner Signature (if applicable): CC: ~ Signed [facility] Work Phone: 1(181) 933-641608-14-2023 History and physical note Author Kristen Caraballo [facility] March 01, 2023 2:35am Note Date/Time March 01, 2023 1: 48am [facility] Medical Records Department [address] [place] [address] H&P Exam - Hospitalist 03/01/23 0145 MR#: [id number] Acct: [id number] Name: RYLEY Rep #:[id number] : 1970 52 From: Kristen Caraballo MD PCP: Dr. Shira Rider MD Status:ADM IN Location: [place] [address] HPI - General General Date of Admission: 03/01/23 Date of Service: 03/01/23 Chief Complaint: Acute Opiate withdrawal HPI Narrative The patient is a 52 y/o F w/ PMHx: Allergic rhinitis, HTN, Anxiety and Depression/Bipolar disorder, GERD, Overweight, Polysubstance abuse (Percocet/Opiates/Cocaine, Prior IVDA w/ heroin) who presents to the [facility] ED on 8/14/23 with noted acute opiate [...] MDMA and cocaine, ethyl alcohol level <3. [facility] Medical History (Updated 03/01/23 @ 01:46 by [...] % (Auto) 54.0, Lymph % (Auto) 32.7, [place]% (Auto) 7.2, Eos % (Auto) 4.9, Baso [...] IVDA w/ heroin) who presents to the [facility] ED on 03/01/23 with noted acute opiate [...] current presentation. Charges/Coding Visit Charges Inpatient E&M: 04364 Init Hosp L3 03/01/23 0235 <Electronically signed by Kristen Caraballo MD> Cosigner Signature (if applicable): CC: Dr. Kristen Caraballo MD; Dr. Shira Rider MD~ Signed [facility] Work Phone: 1(386) 551-322708-14-2023 Discharge summary Author Fabio Rae [facility] March 01, 2023 2:21am Note Date/Time March 01, 2023 1: 23am [facility] Medical Records Department [address] [facility] [place] [address] Emergency Department Summary 03/01/23 MR#: [id number] Acct: [id number] Name: KAMLA HEDRICK Rep #:[id number] : 1970 52 From: Fabio Lieberman PCP: Dr. Shira Rider MD Status:ADM IN Location: [place] [address] HPI History of Present Illness Chief Complaint: Substance Abuse Informant: patient Narrative Narrative: Presents here requesting detox. Reports previous heroin user went to [facility] in 2017. Patient relapsed this past [...] She was reporting when she was in correction had polysubstance findings from her toxicology screen including methadone MDMA and benzos which she states she did not use those. She had meth stating she tried it before correction did not like it. Medically discussion she states she has concerns for leg swelling. No trouble urinating. She states shewas attacked by pit bull in January before going to correction. Denies any fevers. [facility] similar [facility]: [facility] Medical History (Updated 03/01/23 @ 01:46 by [...] clinician: Hospitalist This note was generated with Vozeeme dictation software. It may contain incorrectwords, spelling, [...] % (Auto) 54.0 Lymph % (Auto) 32.7 [place] % (Auto) 7.2 Eos % (Auto) 4.9 [...] regimen, Hypokalemia Disposition Disposition: Acute Care Hospital [facility] What to do if you have Problems For any increased pain, shortness of breath, bleeding, nausea or vomiting, chestpain, or any unexpected problems, contact your Primary Care Provider. Call [facility] ([phone]) or report to the closest Emergency Room. Call 911 if necessary. 03/01/23220 <Electronically signed by Fabio Lieberman> Cosigner Signature (if applicable): CC: Dr. Shira Rider MD ~ Signed [facility] Work Phone: 1(369) 953-668701-06-2023 Telephone encounter Note* Telephone Encounter - Kalee Patel RN - 07/24/2022 4:43 PM EST S: [facility] with [facility] nurse regarding bugs are leaving imprints all [...] now, and find an Urgent care [facility] Patient understands care advice. No further needs at this time. Patient instructed to call back with new or worsening symptoms. Reason for Disposition [1] Bipolar disorder (manic depression) AND [2] worsening (e.g., thinking less clearly, more agitated, less able to do activities of daily living) Protocols used: Bipolar Disorder (Manic Depression)-ADULT- [id number] Miscellaneous Notes* Telephone Encounter - Kalee Patel RN - 07/24/2022 4:43 PM EST S: [facility] spoke with [facility] nurse regarding bugs are leaving imprints all [...] Disorder (Manic Depression)-ADULT- documented in this [facility]01-05-2023 Telephone encounter Note* Telephone Encounter - Marva Dye RN - 07/23/2022 8:26 PM EST S: [facility] regarding head lice. B: Per nurse triage ticket created by [facility] A: Patient disconnected prior to speaking with nurse. No answer upon return call to patient. R: Attempted to return call to pt two times. Left voice message for patient to call the office if assistance is still needed. Reason for Disposition Second attempt to contact caller AND no contact made. Phone number verified. Protocols used: No Contact or Duplicate Contact [id number] [id number] Miscellaneous Notes* Telephone Encounter - Marva Dye [...] Protocols used: No Contact or Duplicate Contact [id number] documented in this [facility] HealthDischarge summary Author Fabio Mcbride [facility] March 01, 2023 2:21am Note Date/Time March 01, 2023 1: 23am [facility] Medical Records Department [address] [place] [address] Emergency Department Summary 03/01/23 MR#: [id number] Acct: [id number] Name: RYLEYOctober Rep #:[id number] : 1970 52 From: Fabio Lieberman PCP: Dr. Shira Rider MD Status:ADM IN Location: [place] [address] HPI History of Present Illness Chief Complaint: Substance Abuse Informant: patient Narrative Narrative: Presents here requesting detox. Reports previous heroin user went to [facility] in 2017. Patient relapsed this past [...] She was reporting when she was in correction had polysubstance findings from her toxicology screen including methadone MDMA and benzos which she states she did not use those. She had meth stating she tried it before correction did not like it. Medically discussion she states she has concerns for leg swelling. No trouble urinating. She states shewas attacked by pit bull in January before going to correction. Denies any fevers. Prior similar symptoms: Yes [facility] Medical History (Updated 03/01/23 @ 01:46 by [...] clinician: Hospitalist This note was generated with Efficient Drivetrainsation software. It may contain incorrectwords, spelling, and [...] % (Auto) 54.0 Lymph % (Auto) 32.7 [place] % (Auto) 7.2 Eos % (Auto) 4.9 [...] regimen, Hypokalemia Disposition Disposition: Acute Care Hospital [facility] What to do if you have Problems For any increased pain, shortness of breath, bleeding, nausea or vomiting, chestpain, or any unexpected problems, contact your Primary Care Provider. Call [facility] ([phone]) or report to the closest Emergency Room. Call 911 if necessary. 03/01/23220 <Electronically signed by Fabio Lieberman> Cosigner Signature (if applicable): CC: Dr. Shira Rider MD ~ Signed [facility] Work Phone: Discharge summary Author Taylor Alarcon [facility] March 03, 2023 11:06am Note Date/Time March 03, 2023 10 :59am [facility] Medical Records Department [address] [place] [address] Discharge Summary 03/03/23 1058 MR#: [id number] Acct: [id number] Name: RYLEYOctober Rep #:[id number] : 1970 52 From: Taylor Alarcon DO PCP: Dr. Shira Rider MD Status:ADM IN Location: [place] [address] Providers Date of Admission: 03/01/23 Date of [...] who presented to the emergency department at [facility] on 03/01/2023for acute opiate withdrawal. She is [...] habitus and well nourished Constitutional Narrative: Middle-aged, -Kittitian female, sitting up in bed watching television, [...] [Primary Care Provider] - Within 1 Month [facility] Doctor,Out of [Non-Staff] - Disposition Disposition (needs filled in before D/C Order can be placed): Inpatient Rehab Unit/Facility Charges/Coding Visit Charges Inpatient E&M: 23791 Disch Hosp 03/03/23 1106 <Electronically signed by Taylor Alarcon DO> Cosigner Signature (if applicable): CC: Dr. Shira Rider MD; Dr. Taylor Alarcon DO~ Signed [facility] Work Phone: Evaluation note* Diagnosis Onset Date Resolution Status History of bipolar disorder acute Hypokalemia acute Noncompliance with medication regimen acute Opiate withdrawal acute Polysubstance dependence acu [facility] Work Phone: Evaluation note* Diagnosis Onset Date Resolution Status History of bipolar disorder acute Hypernatremia acute Hypokalemia acute Noncompliance with medication regimen acute Opiate withdrawal acute Polysubstance dependence acu [facility] Work Phone: Evaluation note* Diagnosis Acute cough- Primary History of asthma Personal history of other diseases of respiratory system [facility] Itching- Primary Unspecified pruritic disorder [facility] Diagnosis Essential (primary) hypertension Unspecified essential hypertension documented in this encounter [facility]* Diagnosis Scalp lesion- Primary Unspecified disorder of skin and subcutaneous tissue Essential (primary) hypertension Unspecified essential hypertension Pure hypercholesterolemia Encounter for screening mammogram for malignant neoplasm of breast Elevated serum glucose Mild intermittent asthma without complication Gastroesophageal reflux disease without esophagitis Esophageal reflux Rash Rash and other nonspecific skin eruption Anemia, unspecified type documented in this encounter [facility]* Diagnosis Lymphadenopathy, cervical- Primary documented in this encounter [facility]* Diagnosis Lymphadenopathy, cervical- Primary documented in this encounter [facility]* Diagnosis Bipolar I disorder (HCC)- Primary Bipolar I disorder, most recent episode (or current) unspecified Rash Rash and other nonspecific skin eruption Dysuria Gastroesophageal reflux disease without esophagitis Esophageal reflux documented in this encounter [facility]* Diagnosis Essential (primary) hypertension Unspecified essential hypertension documented in this encounter [facility] HealthEvaluation note* Diagnosis Seborrheic dermatitis of scalp Other seborrheic dermatitis documented in this encounter [facility]Evaluation note* Diagnosis Seborrheic dermatitis of scalp Other seborrheic dermatitis documented in this encounter [facility]Evaluation note* Diagnosis Acute bilateral knee pain- Primary Family history of rheumatoid arthritis Family history of arthritis Varicose veins of both lower extremities with pain documented in this encounter [facility]Evaluation note* Diagnosis Acute bilateral knee pain- Primary Family history of rheumatoid arthritis Family history of arthritis Varicose veins of both lower extremities with pain Anemia, unspecified type documented in this encounter [facility] Author Kristen [facility] March 01, 2023 2:35am Note Date/Time March 01, 2023 1: 48am [facility] Medical Records Department [address] [place] [address] H&P Exam - Hospitalist 03/01/23 0145 MR#: [id number] Acct: [id number] Name: RYLEYOctober Rep #:[id number] : 1970 52 From: Kristen Caraballo MD PCP: Dr. Shira Rider MD Status:ADM IN Location: [id number] HPI - General General Date of Admission: 03/01/23 Date of Service: 03/01/23 Chief Complaint: Acute Opiate withdrawal HPI Narrative The patient is a 52 y/o F w/ PMHx: Allergic rhinitis, HTN, Anxiety and Depression/Bipolar disorder, GERD, Overweight, Polysubstance abuse (Percocet/Opiates/Cocaine, Prior IVDA w/ heroin) who presents to the [facility] ED on 03/01/23 with noted acute opiate [...] MDMA and cocaine, ethyl alcohol level <3. [facility] Medical History (Updated 03/01/23 @ 01:46 by [...] % (Auto) 54.0, Lymph % (Auto) 32.7, [place]% (Auto) 7.2, Eos % (Auto) 4.9, Baso [...] IVDA w/ heroin) who presents to the [facility] ED on 03/01/23 with noted acute opiate [...] current presentation. Charges/Coding Visit Charges Inpatient E&M: 47914 Init Hosp L3 03/01/23 0234 <Electronically signed by Kristen Caraballo MD> Cosigner Signature (if applicable): CC: Dr. Kristen Caraballo MD; Dr. Shira Rider MD~ Signed [facility] Work Phone: History of Present illness Narrative* [...] recent ear infections. * Patient's preferred language: Mauritanian * Preferred language of the parent, legal guardian or surrogate decision-maker of this minor or incapacitated patient: Mauritanian * No overt signs of domestic violence/neglect/abuse. * No referral made to [facility]. * Pain not interfering with optimal level [...] verbalize recall / understanding and teaching complete. [facility] [address] [place] Work Phone: Reason for referral (narrative)* Consultation (Routine) - Pending Review Specialty Diagnoses / Procedures Referred By Ana t Referred To Contact Dermatology Diagnoses Scalp lesion Procedures [place] OFFICE/OUTPATIENT NEW HIGH MDM 60 MINUTES Roseline Thakkar DO [address] [place] [address] Devin Sorto MD [address] [place] [address] Referral ID Status Reason Start Date Expiration Date Visits Requested Visits Authorized [id number] Pending Review Specialty Services Required 11/12/2023 11/11/2024 1 1 [facility] for referral (narrative)* Consultation (Routine) - Pending Review Specialty Diagnoses / Procedures Referred By Contac t Referred To Contact Infectious Diseases Diagnoses Rash Procedures NH OFFICE/OUTPATIENT NEW HIGH MDM 60 MINUTES Roseline Thakkar DO [address] [place] [address] [facility] [address] [place] [address] Referral ID Status Reason Start Date Expiration Date Visits Requested Visits Authorized [id number] Pending Review Specialty Services Required 03/28/2024 03/28/2025 1 1 T [facility] Summary Purpose Family History Relationship Condition Age at Onset Recorded Date/T meghna mother Diabetes mellitus Unknown Hypertension Unknown Rheumatoid arthritis Unknown father Diabetes mellitus Unknown Malignant neoplasm Unknown Advance Directives Advance Directive Response Recorded Date/ Time Living Will No March 01 3 12:57am Power of Psychologist Developmental No March 01 023 12:57am Advance Directive Response Recorded Date/ Time Living Will No March 01 3 3:04am Power of Psychologist Developmental No March 01, 023 3:04am Chief Complaint [...] section and content) DATE CREATED AUTHOR 01/07/[address] [facility] DATE CREATED AUTHOR AUTHOR'S ORGANIZ ATION 01/12/2018 [facility] DATE CREATED AUTHOR AUTHOR'S ORGANIZ ATION 01/12/2018 [facility] DATE CREATED AUTHOR AUTHOR'S ORGANIZ ATION 10/15/2018 [facility] DATE CREATED AUTHOR AUTHOR'S ORGANIZ ATION 10/24/2018 [facility] DATE CREATED AUTHOR AUTHOR'S ORGANIZ ATION 08/11/2020 [facility] DATE CREATED AUTHOR AUTHOR'S ORGANIZ ATION 09/13/2021 [facility] DATE CREATED AUTHOR AUTHOR'S ORGANIZ ATION 09/17/2021 [employer] DATE CREATED AUTHOR AUTHOR'S ORGANIZ ATION 12/27/2022 [facility] DATE CREATED AUTHOR AUTHOR'S ORGANIZ ATION 03/10/2023 [facility] DATE CREATED AUTHOR AUTHOR'S ORGANIZ ATION 06/28/2023 [facility] DATE CREATED AUTHOR AUTHOR'S ORGANIZ ATION 04/25/2024 [facility] DATE CREATED AUTHOR AUTHOR'S ORGANIZ ATION 08/04/2024 [facility] DATE CREATED AUTHOR AUTHOR'S ORGANIZ ATION 11/29/[address] [facility] Care Teams [...] Dr. Taylor Alarcon DO Attending Provider Active Burr Bench Operator Relationship Specialty Start Date End Date Shira Rider MD [address] [place] [address] [place] [address] PCP - General 04/11/18 [employer] Bench Operator Relationship Specialty Start Date End Date Shira Rider MD [address] [place] [address] [place] [address] PCP - General 04/11/18 [employer]r Bench Operator Relationship Specialty Start Date End Date Shira Rider MD [address] [place] [address] [place] [address] PCP - General 04/11/18 [employer]r Bench Operator Relationship Specialty Start Date End Date Roseline Thakkar DO [address] [place] [address] [place] [address] PCP - General Internal Medicine 10/12/23 [employer]r Bench Operator Relationship Specialty Start Date End Date Roseline Thakkar DO [address] [place] [address] [place] [address] PCP - General Internal Medicine 10/12/23 Burr Bench Operator Relationship Specialty Start Date End Date Roseline Thakkar DO [address] [place] [address] [place] [address] PCP - General Internal Medicine 10/12/23 Burr Bench Operator Relationship Specialty Start Date End Date Roseline Thakkar DO [address] [place] [address] [place] [address] PCP - General Internal Medicine 10/12/23 Burr Bench Operator Relationship Specialty Start Date End Date Roseline Thakkar DO [address] [place] [address] [place] [address] PCP - General Internal Medicine 10/12/23 Burr Bench Operator Relationship Specialty Start Date End Date Roseline Thakkar DO [address] [place] [address] [place] [address] PCP - General Internal Medicine 10/12/23 Burr Bench Operator Relationship Specialty Start Date End Date Roseline Thakkar DO [address] [place] [address] [place] [address] PCP - General Internal Medicine 10/12/23 Burr Bench Operator Relationship Specialty Start Date End Date Shira Rider MD [address] [place] [address] [place] [address] PCP - General 04/11/18 [employer]r Bench Operator Relationship Specialty Start Date End Date Shira Rider MD [address] [place] [address] [place] [address] PCP - General 04/11/18 [employer]r Bench Operator Relationship Specialty Start Date End Date Roseline Thakkar DO [address] [place] [address] [place] [address] PCP - General Internal Medicine 10/12/23 Burr Bench Operator Relationship Specialty Start Date End Date Roseline Thakkar DO [address] [place] [address] [place] [address] PCP - General Internal Medicine 10/12/23 Burr Bench Operator Relationship Specialty Start Date End Date Roseline Thakkar DO [address] [place] [address] [place] [address] PCP - General Internal Medicine 10/12/23 Burr Bench Operator Relationship Specialty Start Date End Date Roseline Thakkar DO [address] [place] [address] PCP - General Internal Medicine 10/12/23 Goals [...] or prosecute any alcohol or drug abuse patient.[facility] the event this information is protected by the Federal Confidentiality of Alcohol and Drug Abuse Patient Records regulations: The Federal rules restrict any use of the information to criminally investigate or prosecute any alcohol or drug abuse patient.[facility] the event this information is protected by the Federal Confidentiality of Alcohol and Drug Abuse Patient Records regulations: The Federal rules restrict any use of the information to criminally investigate or prosecute any alcohol or drug abuse patient.[facility] Reason for Visit (unrecogniz ed section and [...] BE BASED ON THE PRIMARY CLINICAL RECORDS. [employer] provides no warranty or guarantee of the accuracy or completeness of information in this document.
--- OUTSIDE RECORDS SUMMARY | 2025-01-25 22:54 | XMS RPT_ITS | CCD ---
Author Organization [facility] Care Team Providers Care Opthalmic Tech Name Role Phone Pro Ellis Unavailable Unavailable [...] UNKNOWN Admitting Unavailable Edison, Mireya Y Unavailable [phone] Unavailable Unavailable MEGHNA HERNANDEZ Attending Unava ilable TERESO, SHIRA S Primary Care Unavailable Le, Dr. Fabio Emergency Provider [phone] Shira Rider Primary Care Provider Dr. Kristen Caraballo Admit Provider Dr. Kristen Caraballo Other Provider Dr. Taylor Alarcon Attending Provider Dr. Taylor Alarcon Other Provider [facility] Primary Care Unavailable Kristen Caraballo Admitting Unavailable Kristen Caraballo Consulting Unavailable Kristen Caraballo Attending Unavailable Taylor Alarcon Attending Unavailable Taylor Alarcon Consulting Unavailable [facility] Shira Primary Care Unavailable Taylor Alarcon Attending Unavailable Kristen Caraballo Admitting Unavailable Kristen Caraballo Consulting Unavailable Unavailable Primary Care Provider UnavailJEN Perez Referring Unavailable Tommy Rider [facility] Primary Care Provider [phone] Roseline Thakkar DO Primary Care Provider [phone] Unavailable Primary Care Provider Unavailsalvador AUGUSTE, MS. VERN NASCIMENTO Primary Care Allison SOTO MD, CARLTON Attending Unavailable ANNY MARK MD Attending Unavailable ROBY SENA Primary Care Unavailable BRITTANY HARRELL, CARLTON Attending Unavailable ROBY SENA Primary Care Unavailable Shira Rider MD Primary Care Provider [phone] [facility] Primary Care Unavailable TRISTAN MCCLELLAN [...] [DOXYCYCLINE] Drug Allergy 12-18-19 15 Rash, Itching [facility] Repository (20 sources) ibuprofen; Translations: [IBUPROFEN] Drug Allergy 12-11-19 15 Nausea Only [facility] Repository (20 sources) Latex; Translations: [LATEX] Propensity to adverse reactions to drug (disorder) 12-02-19 14 Rash, Itching, Nausea Only, Nausea And Vomiting [facility] Repository (20 sources) naproxen; Translations: [NAPROXEN] Drug Allergy 09-26-19 15 Swelling [facility] Repository (20 sources) Penicillins; Translations: [PENICILLINS] Propensity to adverse reactions to drug (disorder) 10-16-19 01 Rash, Shortness of Breath, Itching, Swelling [facility] Repository (2 sources) Amoxicillin; Translations: [Amoxil CAPS] Drug Allergy QR-Ljouiezfe-X arma Work Phone: (2 sources) Ampicillin; Translations: [Ampicillin CAPS] Drug Allergy RD-Dbpeaejqu-J arma Work Phone: (2 sources) Doxycycline; Translations: [Doxycycline Hyclate CAPS] Drug Allergy XJ-Suqpyfese-A arma Work Phone: (2 sources) Naproxen; Translations: [Naproxen TABS] Drug Allergy UJ-Xfoyogjsb-C arma Work Phone: (2 sources) Latex Gloves MISC; Translations: [Latex Gloves MISC] drug allergy [facility] -P arma Work Phone: (1 source) Penicillin; Translations: [PENICILLIN G] Drug Allergy 10-16-19 01 [facility] ([facility] sources) Codeine; Translations: [CODEINE] Drug Allergy 09-15-19 18 Swelling, Itching [facility] (2 sources) Nonsteroidal Anti-inflammatory Compounds Propensity to adverse reactions 03-11-20 19 Upset Stomach [facility] (2 sources) Sulfamethoxazole Drug Allergy 03-11-20 19 Rash [facility] (2 sources) Trimethoprim Drug Allergy 03-11-20 19 Rash [facility] (1 source) Codeine Drug Allergy 03-11-20 19 [facility] Repository (1 source) NSAIDs Drug allergy (disorder) 03-11-20 19 [facility] Repository (1 source) Sulfamethoxazole Drug Allergy 03-11-20 19 [facility] Repository (1 source) Trimethoprim Drug Allergy 03-11-20 19 [facility] Repository (4 sources) lurasidone; Translations: [LURASIDONE] Drug Allergy 05-12-20 23 Shortness of Breath [facility] (4 sources) Sertraline; Translations: [SERTRALINE] Drug Allergy 05-12-20 23 Shortness of Breath [facility] (20 sources) Sulfamethoxazole / Trimethoprim; Translations: [SULFAMETHOXAZOLE-T RIMETHOPRIM] Drug Allergy 04-12-20 17 Rash, Hives [facility] (4 sources) Vancomycin; Translations: [VANCOMYCIN] Drug Allergy 05-12-20 23 GI Upset, Itching [facility] (20 sources) Aluminum aspirin Drug Allergy 07-04-20 15 Unknown [facility] (20 sources) lurasidone Drug Allergy 09-17-19 18 [facility] (20 sources) penicillAMINE Drug Allergy 05-28-20 22 Swelling [facility] (20 sources) Prochlorperazine Drug Allergy 03-13-20 19 Unknown [facility] Medications Current Medications Medication Drug Class(es) Dates Sig (Normalized) Sig (Original) [id number] 200 actuat albuterol 0.09 mg/actuat metered dose [...] g 3 11/12/2023 Active polyethylene glycol 3350 67307 mg powder for oral solution (20 sources) [...] Range Facility 36on 11-28-2024 36 noted Normal [facility] 36 S: Patient spoke wit h CAC [...] Advised that she could be seen in [facility] up until 7pm. Patient voiced understanding. Advised [...] to urinate (i.e., urgency) Protocols used: Urinary Dkyahfir-EXCYF-YW Normal [facility] Office Visiton 10-18-2024 Follow-up visit [id number] Kiana Hedrick 1970 F Date Provider Department Center 10/18/2024 [id number], KORY [facility] Family History Problem Relation Age of Onset [...] Alive Daughter Alive Sister Alive Level of Service:82608 UT OFFICE/OUTPATIENT ESTABLISHED MOD MDM 30 MIN Reason for Visit and Comments: Knee Pain [965959] - Patient states bilateral knee pain, swelling, tightness, going on for 3 days, taking OTC Normal [facility] Progress Noteon 10-18-2024 Progress Note [facility] - [address] [facility] [address] Visit Type: Same Day PCP: Roseline [...] for 12-14 hours a day - Wears [place] shoes, previously wore steel-sole shoes which caused [...] to scalp, lathe (more content not included)... [facility] 36on 09-04-2024 36 S: Patient spoke wit h [facility] nurse regarding bladder infection concern [...] urination Protocols used: Urination Pain - ADULT-OH [facility] ED NOTEon 07-31-2024 ED NOTE HNO ID: [id number] Author: ZULEIKA MENDOZA RN Service: Nursing Author Type: Registered Nurse Type: ED Notes Filed: 07/31/2024 23:48 Note Text: Pt was alert and oriented times 3 when she left she was able to answer questions correctly gait was unsteady when she walked Dr Mcclellan was aware of the walking and the pts behavior while in the er [facility] ED NOTE HNO ID: [id number] Author: ZULEIKA MENDOZA RN Service: Nursing Author Type: Registered Nurse Type: ED Notes Filed: 07/31/2024 23:48 Note Text: Pt was discharged to return to the [facility] she was sent back per [facility] ED NOTE HNO ID: [id number] Author: ZULEIKA MENDOZA RN Service: Nursing Author Type: Registered Nurse Type: ED Notes Filed: 07/31/2024 23:26 Note Text: Pt is walking around the er room gait is unsteady she denies SI denies HI she answers questions appropriately Pt was observed drinking from the er room sink with her mouth Waiting at present for an uber ride to return to the [facility] Dr Mcclellan has talked to the [facility] regarding her return to the [facility] ED NOTE HNO ID: [id number] Author: ZULEIKA MENDOZA RN Service: Nursing Author Type: Registered Nurse Type: ED Notes Filed: 07/31/2024 22:45 Note Text: Ptis moving about the er room 11 she was medicated for pain [facility] ED NOTE HNO ID: [id number] Author: COURTNEY CARRENO RN Service: ? Author Type: Registered Nurse Type: ED Notes Filed: 07/31/2024 21:11 Note Text: Bed: ED-11 Expected date: Expected time: Means of arrival: Comments: [address] ED PROV NOTEon 07-31-2024 ED PROV NOTE HNO ID: [id number] Author: TRISTAN MCCLELLAN MD Service: Emergency Medicine [...] back pain. [facility] Reports history of fibromyalgia and also chronic [...] to displa (more content not included)... Normal [facility] 29on 07-28-2024 29 Addended by: RAMYA SEGOVIA on: 08/01/2024 09:14 AM Modules accepted: Level of Service Normal [facility] Office Visiton 07-28-2024 Follow-up visit [id number] Kiana Hedrick 1970 F Date Provider Department Center 07/28/2024 [id number]-LZIKEPARAMYA SEGOVIA [facility] Family History Problem Relation Age of Onset [...] Alive Daughter Alive Sister Alive Level of Service:06704 UT OFFICE/OUTPATIENT ESTABLISHED SF MDM 10 MIN Reason for Visit and Comments: Follow-up [958501] - Patient here for follow up. Requesting medication for MRSA, it resolved but it is coming back. Normal [facility] Progress Noteon 07-28-2024 Progress Note [facility] - [place] [address] [facility] [address] [facility] [address] Dept: [phone] Dept Visit Date: 07/28/24 HPI: October Ryley [...] are pruritic. We have no records from [facility], we have requested the patient to complete zabrina prior but no acesss. I have minimal reports via care everywhere. Last ed visit I see was 04/13, so three months ago. A culture was obtained, mrsa. This is when she was prescribed linezolid. [place] it got better but then worsened. Current [...] Seborrheic derm (more content not included)... Normal [facility] 36on 07-03-2024 36 Spoke with pt advisjuan potter message She advised her sx haven't resolved after finishing the medication Pt tried to get a refill but DDM advised she needs seen by the office Appt scheduled with RONY tomorrow [facility] 36 She needs to talk to [facility] about this. Not sure why she needs a refill of the med she already took for the mrsa. [address] 06-30-2024 36 Name of caller: Kiana ambrosio Contact phone number: [phone] Relationship to Patient: patient Provider: Ariane Practice: Lynda FRASER Chief Complaint/Reason for Call: Patient called back in with the medication name for her MRSA. It is called VIVI (Mario). Please note and advise. Best time of day caller can be reached: any Patient advised that office/PCP has 24-48 business hours to return their call: No [address] 06-28-2024 [address] 06-23-2024 36 We have been unable to reach your patient to schedule their testing. Test Name: Head and neck ultrasound 1st Attempt: 01/15/24 via [employer] message 2nd Attempt: Cancelled/no show 01/19/24, 01/29/24, 06/07/24 TE sent to office, cancel request 06/23/[address] 06-20-2024 36 Lmom letting pt know [employer] message sent and needing for [facility] information to get list of Rx pt was on. [address] 06-16-2024 36 Lmom to fill out ZABRINA for Rx from [facility]. [address] 06-06-2024 36 Please obtain record s from [facility]. [address] 06-05-2024 36 Name of caller: Kiana ambrosio Contact phone number: [phone] Relationship to Patient: patient Provider: Ariane Practice: Lynda Primary Chief Complaint/Reason for Call: Patient said she needs her amlodipine sent to the [facility] on . 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 Fatimah Fonseca RPh - 04/24/2024 13:[address] [facility] Clinical Interventi ons-Texton 04-18-2024 Pharmacy [...] Hoyos RPh - 04/18/2024 12:[address] [facility] C MISCon 04-16-2024 C [facility] pt of Laboratory Services [address] [place] [id number] Name: KAMLA HEDRICK : 1970 Admitting Provider: Gender Female Financial [phone] : Number: Danyell ORTEZ; RA; 1 n: [...] KAMLA HEDRICK Print 04/16/2024 09:42 EDT [facility] [address] [place] [id number] Name: KAMLA HEDRICKN: [id number] : 1970 Admitting Provider: Gender Female Financial [id number] : Number: Danyell ORTEZJanet MARIE; 1 n: Admit 04/13/2024 Date: Discharge 04/13/2024 Microbiology Date: SUSCEPTIBILITY RESULTS Staphylococcus aureus Antibiotic RAINER Interp Amp/Sulbactam Resistant Cefazolin Resistant Clindamycin Susceptible Erythromycin Resistant Gentamicin Susceptible Oxacillin Resistant Tetracycline Resistant Trimethoprim/Sulfametho xazole Resistant Vancomycin Susceptible ____ L=Low, H= High, *= Abnormal, C=Critical, f=Footnote, c=Corrected, i=Interp Data Name: KAMLA HEDRICK Print 04/16/2024 09:42 EDT Date/Time: Normal [facility] Comment on above: Performed By: #### [id number] #### [facility] Laboratory Services [address] [place] [address] Rolling Mill Operator: Demetrio Rodrigez MD ED Data SEATER GRINDER - Texton 024 ED Data SEATER GRINDER - Text ED Data SEATER GRINDER Entered On: 04/13/2024 16:30 EDT Performed On: 04/13/2024 16:20 EDT by Agustina Goodman RN ED General Intake Information Cameron Coma : Document Cameron Coma Scale Problem History : Document Problem [...] Agustina Goodman RN - 04/13/2024 16:26 EDT Cameron Coma Scale Eye Opening : Spontaneously Best Verbal Response : Oriented Best Motor Response : Obeys simple commands Cameron Coma Score (Ref) : 15 Agustina Goodman RN - 04/13/2024 16:26 EDT Problem History (As Of: 04/13/2024 16:30:17 EDT) Problems(Active) Bipolar 1 disorder (SNOMED CT :1969909416 ) Name of Problem: Bipolar 1 disorder ; Recorder: Monica Doll RN; Confirmation: Confirmed ; Classification: Patient/Family Stated ; Code: [id number] ; Contributor System: [employer] ; Last Updated: 06/10/2016 19:47 EST ; Life Cycle Date: 06/10/2016 ; Life Cycle Status: Active ; Vocabulary: SNOMED CT Crohns disease (SNOMED CT :8070105701 ) Name of Problem: Crohns disease ; Recorder: Zuleika Wagner RN; Confirmation: Confirmed ; Classification: Medical ; Code: [id number] ; Contributor System: [employer] ; Last Updated: 01/27/2017 19:25 EDT ; Life Cycle Date: 01/27/2017 ; Life Cycle Status: Active ; Vocabulary: SNOMED CT Methicillin resistant Staphylococcus aureus (SNOMED CT :473323530 ) Name of Problem: Methicillin resistant Staphylococcus aureus ; Recorder: SYSTEM; Confirmation: Confirmed ; Classification: Medical ; Code: [id number] ; Last Updated: 09/20/2023 06:47 EST ; [...] patient. Opioid use disorder, Severe (SNOMED CT :190675121 ) Name of Problem: Opioid use disorder, Severe ; Recorder: ROBERT MENDOZA DO; Confirmation: Confirmed ; Classification: Medical ; Code: 798983915 ; Contributor System: [employer] ; Last Updated: 03/01/2017 15:02 EDT ; Life Cycle Status: Active ; Responsible Provider: ROBERT MENDOZA DO; Vocabulary: SNOMED CT Posttraumatic stress disorder (SNOMED CT :814794527 ) Name of Problem: Posttraumatic stress disorder ; Recorder: ROBERT MENDOZA DO; Confirmation: Confirmed ; Classification: Medical ; Code: 747779596 ; Contributor System: [employer] ; Last Updated: 03/01/2017 15:02 EDT ; Life Cycle Status: Active ; Responsible Provider: ROBERT MENDOZA DO; Vocabulary: SNOMED CT PTSD (post-traumatic stress disorder) (SNOMED CT :714575018 ) Name of Problem: PTSD (post-traumatic stress disorder) ; Recorder: Monica Doll RN; Confirmation: Confirmed ; Classification: Patient/Family Stated ; Code: 994229744 ; Contributor System: [employer] ; Last Updated: 06/10/2016 19:47 EST ; Life Cycle Date: 06/10/2016 ; Life Cycle Status: Active ; Vocabulary: SNOMED CT Tobacco use disorder, Moderate (SNOMED CT :18357066 ) Name of Problem: Tobacco use disorder, Moderate ; Recorder: ROBERT MENDOZA DO; Confirmation: Confirmed ; Classification: Medical ; Code: 55419100 ; Contributor System: [employer] ; Last Updated: 03/01/2017 15:03 EDT ; Life Cycle Status: Active ; Responsible Provider: ROBERT MENDOZA DO; Vocabulary: SNOMED CT Vancomycin resistant enterococcus (SNOMED CT :891807767 ) Name of Problem: Vancomycin resistant enterococcus ; Recorder: SYSTEM; Confirmation: Confirmed ; Classification: Medical ; Code: 777986925 ; Last Updated: 02/02/2016 06:33 EDT ; [...] ; Clinica (more content not included)... Normal [facility] ED Discharge Educationon ED Discharge Education Dermatology Folliculitis: Care Instructions Overview Folliculitis (say kqz-QTH-vyk-LY-tus) is an inflammation of the pouches (follicles) [...] Where can you learn more? Go to https://www.Sarata. Equals6/patientEd Enter M257 in the search box to learn more about Folliculitis: Care Instructions. Current as of: June 02, 2021 Content Version: 13.3 ? [employer]. Care instructions adapted under license by your healthcare professional. If you have questions about a medical condition or this instruction, always ask your healthcare professional. [employer] disclaims any warranty or liability for your use of this information. Normal [facility] ED Emergency Severity Index Adult-Texton 04-13-2024 ED Emergency Severity Index Adult-Text AIDEN - Adult Entered On: 04/13/2024 16:30 EDT Performed On: 04/13/2024 16:20 EDT by Agustina oGodman RN DCP GENERIC CODE Visit Reason : NECK PAIN Tracking Triage Date/Time : 04/13/2024 16:30 EDT Tracking Reg Status : Requested Tracking Acuity : [id number] Tracking Group : Agustina Alba RN - 04/13/2024 16:26 EDT Normal [facility] ED Patient Summaryon 024 ED Patient Summary [facility] Emergency Department Discharge Instructions [address] [place] [address] (Patient Copy) Name: RYLEY October : 1970 Allergies: penicillins; naproxen; ibuprofen; doxycycline; Compazine; Bactrim Diagnosis: Acute folliculitis. Visit Date: 04/13/2024 16:09:19 [facility]#: [id number] Current Date Time: 04/13/2024 17:25:55 Address: [address] [place] [address] Primary Care Provider: Name: VERN AUGUSTE Phone: [phone] Emergency Department Care Providers: Primary Physician: CARLTON SOTO MD Thank you for choosing [facility] for your emergency care. You are very important to us. Our goal is to demonstrate our high quality medical care, and provide you with a very good patient experience. You may receive a survey about our service. Please take the time to complete the survey and return it so we can continue to enhance our service. Thank you again for allowing the [facility] Emergency Department to care for your medical needs. If you have questions about your care or follow up information please contact us at [phone]. Follow-Up Instructions RYLEYOctober D has been given [...] materials: Folliculitis: Care Instructions Overview Folliculitis (say foi-VHD-cih-LY-tus) is an inflammation of the pouches (follicles) [...] Where can you learn more? Go to https://www.Sarata. net/patientEd Enter M257 in the search box to learn more about Folliculitis: Care Instructions. Current as of: June 02, 2021 Content Version: 13.3 ? [employer]. Care instructions adapted under license by your healthcare professional. If you have questions about a medical condition or this instruction, always ask your healthcare profess (more content not included)... Normal [facility] ED Physician Reporton 2023 ED Physician [...] sees Dr. Thakkar now and also a sales account associate. She has an appointment scheduled for ultrasound [...] oral tablet), 500 mg= 1 tabs, ORAL, [id number] C MISC(MISCELLANEOUS CULTURE), ROUTINE, BRITTANY HARRELL, CARLTON, 04/13/2024 16:39:00 EDT, Specimen type: WOUND, scalp wound occipital Problem List/Past Medical History Ongoing Crohns disease Methicillin resistant Staphylococcus aureus Opioid use disorder, Severe Posttraumatic stress disorder Tobacco use disorder, Moderate Van (more content not included)... Normal [facility] ED Progress Noteon 4 ED Progress [...] steady gait out to private vehicle. Normal [facility] ED Triage SEATER GRINDER - Texton 04-13 ED Triage SEATER GRINDER - Text ED Triage SEATER GRINDER Enter ed On: 04/13/2024 16:28 EDT Performed [...] EDT) Problems(Active) Bipolar 1 disorder (SNOMED CT :4531102995 ) Name of Problem: Bipolar 1 disorder ; Recorder: Monica Doll RN; Confirmation: Confirmed ; Classification: Patient/Family Stated ; Code: [id number] ; Contributor System: [employer] ; Last Updated: 06/10/2016 19:47 EST ; Life Cycle Date: 06/10/2016 ; Life Cycle Status: Active ; Vocabulary: SNOMED CT Crohns disease (SNOMED CT :4831350613 ) Name of Problem: Crohns disease ; Recorder: Zuleika Wagner RN; Confirmation: Confirmed ; Classification: Medical ; Code: 7797327385 ; Contributor System: [employer] ; Last Updated: 01/27/2017 19:25 EDT ; Life Cycle Date: 01/27/2017 ; Life Cycle Status: Active ; Vocabulary: SNOMED CT Methicillin resistant Staphylococcus aureus (SNOMED CT :352188164 ) Name of Problem: Methicillin resistant Staphylococcus aureus ; Recorder: SYSTEM; Confirmation: Confirmed ; Classification: Medical ; Code: 059022454 ; Last Updated: 09/20/2023 06:47 EST ; [...] patient. Opioid use disorder, Severe (SNOMED CT :389357610 ) Name of Problem: Opioid use disorder, Severe ; Recorder: ROBERT MENDOZA DO; Confirmation: Confirmed ; Classification: Medical ; Code: 171580337 ; Contributor System: [employer] ; Last Updated: 03/01/2017 15:02 EDT ; Life Cycle Status: Active ; Responsible Provider: ROBERT MENDOZA DO; Vocabulary: SNOMED CT Posttraumatic stress disorder (SNOMED CT :162966166 ) Name of Problem: Posttraumatic stress disorder ; Recorder: ROBERT MENDOZA DO; Confirmation: Confirmed ; Classification: Medical ; Code: 547129227 ; Contributor System: [employer] ; Last Updated: 03/01/2017 15:02 EDT ; Life Cycle Status: Active ; Responsible Provider: ROBERT MENDOZA DO; Vocabulary: SNOMED CT PTSD (post-traumatic stress disorder) (SNOMED CT :954668150 ) Name of Problem: PTSD (post-traumatic stress disorder) ; Recorder: Monica Doll RN; Confirmation: Confirmed ; Classification: Patient/Family Stated ; Code: 116563814 ; Contributor System: [employer] ; Last Updated: 06/10/2016 19:47 EST ; Life Cycle Date: 06/10/2016 ; Life Cycle Status: Active ; Vocabulary: SNOMED CT Tobacco use disorder, Moderate (SNOMED CT :95544273 ) Name of Problem: Tobacco use disorder, Moderate ; Recorder: ROBERT MENDOZA DO; Confirmation: Confirmed ; Classification: Medical ; Code: 78869076 ; Contributor System: [employer] ; Last Updated: 03/01/2017 15:03 EDT ; Life Cycle Status: Active ; Responsible Provider: ROBERT MENDOZA DO; Vocabulary: SNOMED CT Vancomycin resistant enterococcus (SNOMED CT :050810104 ) Name of Problem: Vancomycin resistant enterococcus ; Recorder: SYSTEM; Confirmation: Confirmed ; Classification: Medical ; Code: 082780022 ; Last Updated: 02/02/2016 06:33 EDT ; [...] PNED ; Probability: 0 ; Diagnosis Code: [id number] Reason for Visit (As Of: 04/13/2024 16:28:23 EDT) Problems(Active) B (more content not included)... [facility] [facility] AMB POC URINALYSIS DIP STICK AUTO W/O MICROon 03-28-2024 Bilirubin, UA Negative [facility] Blood, UA Negative [facility] Glucose, UA Negative [facility] Interpretation and review of laboratory results Abnormal [facility] Ketones, UA (mg/dL) Negative Negative mg/dL [facility] Leukocytes, UA [facility] Nitrite, UA Negative [facility] pH, UA 7.0 [facility] Protein, UA Negative [facility] Spec Grav, UA 1.020 [facility] Urobilinogen, UA 0.2 [facility] Office Visiton 03-28-2024 Follow-up visit [id number] Kiana Hedrick 1970 F Date Provider Department Center 03/28/2024 [id number] THAKKAR [facility] Family History Problem Relation Age of Onset [...] Alive Daughter Alive Sister Alive Level of Service:07376 UT OFFICE/OUTPATIENT ESTABLISHED [facility] 30 MIN Reason for Visit and Comments: Rash [242941] - Rash/bumps are not improving. Patient reports rash all over body not going away. (Possibly from roommate) UTI [[id number]] - UTI symptoms. Reports urgency, burning, spasms Discuss Medications [876] - Wants to take Topamax only prn, also wants to increase Pepcid Normal [facility] Progress Noteon 03-28-2024 Progress Note [facility] [place] [id number] [facility] [address] [facility] [address] Visit Type: Office Visit PCP: Roseline [...] scabies. Notes she is following with the sales account associate. Has appt with derm on Wednesday. (Dr. [...] 02/01/2015 Objective (more content not included)... Normal [facility] 36on 03-15-2024 36 S: Patient spoke wit [...] less.) Protocols used: Rash or Redness - [id number] Normal [facility] ED Data SEATER GRINDER - Texton 024 ED Data SEATER GRINDER - Text ED Data SEATER GRINDER Entered On: 03/03/2024 11:00 EDT Performed On: 03/03/2024 10:57 EDT by Ramya Stewart RN ED General Intake Information Information Given By : Patient Cameron Coma : Document Cameron Coma Scale Problem History : Document Problem [...] Ramya Stewart RN - 03/03/2024 10:57 EDT Cameron Coma Scale Eye Opening : Spontaneously Best Verbal Response : Oriented Best Motor Response : Obeys simple commands Cameron Coma Score (Ref) : 15 Ramya Stewart RN - 03/03/2024 10:57 EDT Problem History (As Of: 03/03/2024 11:00:19 EDT) Problems(Active) Bipolar 1 disorder (SN[address] :0390409406 ) Name of Problem: Bipolar 1 disorder ; Recorder: Monica Doll RN; Confirmation: Confirmed ; Classification: Patient/Family Stated ; Code: [id number] ; Contributor System: [employer] ; Last Updated: 06/10/2016 19:47 EST ; Life Cycle Date: 06/10/2016 ; Life Cycle Status: Active ; Vocabulary: SNOMED CT Crohns disease (SNOMED CT :6865285413 ) Name of Problem: Crohns disease ; Recorder: Zuleika Wagner RN; Confirmation: Confirmed ; Classification: Medical ; Code: 0855663070 ; Contributor System: [employer] ; Last Updated: 01/27/2017 19:25 EDT ; Life Cycle Date: 01/27/2017 ; Life Cycle Status: Active ; Vocabulary: SNOMED CT Methicillin resistant Staphylococcus aureus (SNOMED CT :419223406 ) Name of Problem: Methicillin resistant Staphylococcus aureus ; Recorder: SYSTEM; Confirmation: Confirmed ; Classification: Medical ; Code: 279683499 ; Last Updated: 09/20/2023 06:47 EST ; [...] patient. Opioid use disorder, Severe (SNOMED CT :705406079 ) Name of Problem: Opioid use disorder, Severe ; Recorder: ROBERT MENDOZA DO; Confirmation: Confirmed ; Classification: Medical ; Code: 100803914 ; Contributor System: [employer] ; Last Updated: 03/01/2017 15:02 EDT ; Life Cycle Status: Active ; Responsible Provider: ROBERT MENDOZA DO; Vocabulary: SNOMED CT Posttraumatic stress disorder (SNOMED CT :783209694 ) Name of Problem: Posttraumatic stress disorder ; Recorder: ROBERT MENDOZA DO; Confirmation: Confirmed ; Classification: Medical ; Code: 292722360 ; Contributor System: [employer] ; Last Updated: 03/01/2017 15:02 EDT ; Life Cycle Status: Active ; Responsible Provider: ROBERT MENDOZA DO; Vocabulary: SNOMED CT PTSD (post-traumatic stress disorder) (SNOMED CT :502681127 ) Name of Problem: PTSD (post-traumatic stress disorder) ; Recorder: Monica Doll RN; Confirmation: Confirmed ; Classification: Patient/Family Stated ; Code: 105712529 ; Contributor System: [employer] ; Last Updated: 06/10/2016 19:47 EST ; Life Cycle Date: 06/10/2016 ; Life Cycle Status: Active ; Vocabulary: SNOMED CT Tobacco use disorder, Moderate (SNOMED CT :58508135 ) Name of Problem: Tobacco use disorder, Moderate ; Recorder: ROBERT MENDOZA DO; Confirmation: Confirmed ; Classification: Medical ; Code: 18398964 ; Contributor System: [employer] ; Last Updated: 03/01/2017 15:03 EDT ; Life Cycle Status: Active ; Responsible Provider: ROBERT MENDOZA DO; Vocabulary: SNOMED CT Vancomycin resistant enterococcus (SNOMED CT :871476480 ) Name of Problem: Vancomycin resistant enterococcus ; Recorder: SYSTEM; Confirmation: Confirmed ; Classification: Medical ; Code: 949011161 ; Last Updated: 02/02/2016 06:33 EDT ; [...] ; Clini (more content not included)... Normal [facility] ED Discharge Educationon ED Discharge Education [...] your doctor if you can take an rhco-zzp-gfdtfuh medicine. ? Rest and protect your knee. [...] Where can you learn more? Go to https://www.Sarata. net/patientEd Enter K195 in the search box to learn more about Knee Pain or Injury: Care Instructions. Current as of: September 24, 2021 Content Version: 13.3 ? [employer]. Care instructions adapted under license by your healthcare professional. If you have questions about a medical condition or this instruction, always ask your healthcare professional. [employer] disclaims any warranty or liability for your use of this information. Normal [facility] ED Emergency Severity Index Adult-Texton 03-03-2024 ED Emergency Severity Index Adult-Text AIDEN - Adult Entered On: 03/03/2024 11:00 EDT Performed On: 03/03/2024 10:50 EDT by Pat TRACY, Ramya WOLFE DCP GENERIC CODE Visit Reason : KNEE PAIN Tracking Triage Date/Time : 03/03/2024 11:00 EDT Tracking Reg Status : Complete Tracking Acuity : [id number] Tracking Group : CLARENCE Stewart RN, Ramya - 03/03/2024 10:57 EDT Normal [facility] ED Patient Summaryon 024 ED Patient Summary [facility] Emergency Department Discharge Instructions [address] [place] [address] (Patient Copy) Name: KAMLA HEDRICK : 1970 Allergies: penicillins; naproxen; ibuprofen; doxycycline; Compazine; Bactrim Diagnosis: Knee injury Visit Date: 03/03/2024 10:43:41 Current Date Time: 03/03/2024 12:07:53 Address: [address] [place] [address] Primary Care Provider: Name: ROBY SENA Emergency Department Care Providers: Primary Physician: ANNY MARK MD Thank you for choosing [facility] for your emergency care. You are very important to us. Our goal is to demonstrate our high quality medical care, and provide you with a very good patient experience. You may receive a survey about our service. Please take the time to complete the survey and return it so we can continue to enhance our service. Thank you again for allowing the [facility] Emergency Department to care for your medical needs. If you have questions about your care or follow up information please contact us at [phone]. Follow-Up Instructions KAMLA HEDRIKC has been given these follow-up instructions: With: Address: When: ALLA KUHN, Orthopedic Surgery [address] [facility], [address] [address] Business (1) Within 3 to [...] your doctor if you can take an xwsy-vqy-ipjaqhp medicine. ? Rest and protect your knee. [...] groin. Watc (more content not included)... Normal [facility] ED Physician Reporton 2023 ED Physician [...] complete this note and may contain unintentional braiding operator errors. Discharge/Plan *Discharge Disposition NO DISCHARGE DISPOSITION DOCUMENTED Patient Education Knee Pain or Injury Follow Up With When Contact Information ALLA KUHN, Orthopedic Surgery Within 3 to [address] [address] [facility] (1) Additional Instructions: Assessment This Visit Diagnosis [...] acute fr (more content not included)... Normal [facility] ED Progress Noteon 4 ED Progress Note 1050 pt to bred int 2 from waiting rm pt c/o fall yesterday at work and landed on left knee and hit her face c/o continued left knee pain able to ambulate 1200 discharged pt in NAD, instructions given, verbalized understanding encouraged close f/u with dr or return for worsening Normal [facility] ED Triage SEATER GRINDER - Texton 03-03 ED Triage SEATER GRINDER - Text ED Triage SEATER GRINDER Enter ed On: 03/03/2024 10:58 EDT Performed [...] EDT) Problems(Active) Bipolar 1 disorder (SNOMED CT :3885546275 ) Name of Problem: Bipolar 1 disorder ; Recorder: Monica Doll RN; Confirmation: Confirmed ; Classification: Patient/Family Stated ; Code: 5125427922 ; Contributor System: [employer] ; Last Updated: 06/10/2016 19:47 EST ; Life Cycle Date: 06/10/2016 ; Life Cycle Status: Active ; Vocabulary: SNOMED CT Crohns disease (SNOMED CT :4799206227 ) Name of Problem: Crohns disease ; Recorder: Zuleika Wagner RN; Confirmation: Confirmed ; Classification: Medical ; Code: 7452378958 ; Contributor System: [employer] ; Last Updated: 01/27/2017 19:25 EDT ; Life Cycle Date: 01/27/2017 ; Life Cycle Status: Active ; Vocabulary: SNOMED CT Methicillin resistant Staphylococcus aureus (SNOMED CT :456423445 ) Name of Problem: Methicillin resistant Staphylococcus aureus ; Recorder: SYSTEM; Confirmation: Confirmed ; Classification: Medical ; Code: 459052422 ; Last Updated: 09/20/2023 06:47 EST ; [...] patient. Opioid use disorder, Severe (SNOMED CT :320225526 ) Name of Problem: Opioid use disorder, Severe ; Recorder: ROBERT MENDOZA DO; Confirmation: Confirmed ; Classification: Medical ; Code: 490319865 ; Contributor System: [employer] ; Last Updated: 03/01/2017 15:02 EDT ; Life Cycle Status: Active ; Responsible Provider: ROBERT MENDOZA DO; Vocabulary: SNOMED CT Posttraumatic stress disorder (SNOMED CT :043219101 ) Name of Problem: Posttraumatic stress disorder ; Recorder: ROBERT MENDOZA DO; Confirmation: Confirmed ; Classification: Medical ; Code: 989238922 ; Contributor System: [employer] ; Last Updated: 03/01/2017 15:02 EDT ; Life Cycle Status: Active ; Responsible Provider: ROBERT MENDOZA DO; Vocabulary: SNOMED CT PTSD (post-traumatic stress disorder) (SNOMED CT :704808504 ) Name of Problem: PTSD (post-traumatic stress disorder) ; Recorder: Monica Doll RN; Confirmation: Confirmed ; Classification: Patient/Family Stated ; Code: 979936071 ; Contributor System: [employer] ; Last Updated: 06/10/2016 19:47 EST ; Life Cycle Date: 06/10/2016 ; Life Cycle Status: Active ; Vocabulary: SNOMED CT Tobacco use disorder, Moderate (SNOMED CT :91413871 ) Name of Problem: Tobacco use disorder, Moderate ; Recorder: ROBERT MENDOZA DO; Confirmation: Confirmed ; Classification: Medical ; Code: 77789326 ; Contributor System: [employer] ; Last Updated: 03/01/2017 15:03 EDT ; Life Cycle Status: Active ; Responsible Provider: ROBERT MENDOZA DO; Vocabulary: SNOMED CT Vancomycin resistant enterococcus (SNOMED CT :084513935 ) Name of Problem: Vancomycin resistant enterococcus ; Recorder: SYSTEM; Confirmation: Confirmed ; Classification: Medical ; Code: 836986765 ; Last Updated: 02/02/2016 06:33 EDT ; [...] PNED ; Probability: 0 ; Diagnosis Code: [id number] Reason for Visit (As Of: 03/03/2024 10:58:52 E (more content not included)... Normal [facility] XR KNEE LEFT 3 VIEWSon 03-03 [...] DOUGLAS MD Signed Out: 03/03/24 11:32:30 Normal [facility] 36on 02-11-2024 36 Recent Visits Date Type Provider Dept 01/11/24 Office Visit Jennifer Rocha [facility] 11/12/23 Office Visit Roseline Thakkar DO [facility] Showing recent visits within past 365 days and meeting all other requirements Today's Visits Date Type Provider Dept 02/11/24 Appointment Roseline Thakkar DO [facility] Showing today's visits and meeting [...] BY THOROUGH WASHING. Provider: Roseline Thakkar DO [facility] [address] - [place], [place] - [address] [facility] [address] [facility] [address] [place], [place] - [address] [facility] [address] Verified pharmacy: yes Verified day(s) supplied: yes Verified refill(s) needed (previous prescription showing no refills in chart): Yes Have you received any controlled medications from any other provider? Overdue for visit: No If yes - patient scheduled? N/A Most recent labs completed in chart? N/A Normal [facility] Office Visiton 01-11-2024 Follow-up visit [id number] Kiana Hedrick 1970 F Date Provider Department Center 01/11/2024 [id number] ROCHA [facility] Family History Problem Relation Age of Onset [...] Alive Daughter Alive Sister Alive Level of Service:78415 UT OFFICE/OUTPATIENT ESTABLISHED [facility] 10 MIN Reason for Visit and Comments: Neck Mass [804] - Lymph node, x 3 wks, bilateral, painful Normal [facility] Progress Noteon 01-11-2024 Progress Note [facility] [address] [facility] [address] [facility] [address] Dept: [phone] Dept Reason for Visit: Neck Mass (Lymph node, x 3 wks, bilateral, painful) Assessment and Plan 1. Lymphadenopathy, cervical - US head neck soft tissue Follow up if symptoms worsen or fail to improve. Subjective HPI Pt presents today for evaluation of lymph nodes in her neck. Was seen by the sales account associate and was told to follow up with [...] Any cillins per patient Prochlorperazine Unknown Sulfamethoxazole-Trimet [facility] Outpatient Medications Prior to Visit Medication Sig [...] History: Diagnosis Date SEGUNDO (acute kidney injury) ([facility]) 01/06/2016 Anxiety Asthma Bipolar disorder (HCC) Bipolar [...] note reviewed. Constitutional: (more content not included)... [facility] 36on 12-08-2023 36 Yes. No urgency. [facility] 36 Name of caller: Kiana ambrosio Contact phone number: [phone] Relationship to Patient: Patient Provider: Practice: [facility] Chief Complaint/Reason for Call: Patient called in regarding voicemail left. Patient stated she only can come in the afternoon, scheduled 12/15 with . Please advise. Best time of day caller can be reached: N/A Patient advised that office/PCP has 24-48 business hours to return their call: N/A [facility] 36 Sent mychart message [facility] 36 Left message on patient's voicemail asking her to call back and schedule an office visit. If patient calls, please schedule first available 20 OV. [facility] 36 20 fine. [facility] 36on 12-07-2023 36 That's fine. [facility] 36 Name of caller: Ramon her Contact phone number: [phone] Relationship to Patient: [facility] Provider: Dr. Thakkar Practice: [facility] Chief Complaint/Reason for Call: (pt was not on the line to triage) PT was seen downstairs at [facility] today and it was discovered that pt has palpable lymph nodes and was advised to be seen immediately. The office states they can fax any clinical documentation if need be. Please advise pt on next steps. Best time of day caller can be reached: any Patient advised that office/PCP has 24-48 business hours to return their call: Yes [facility] Clinical Interventi ons-Texton 09-21-2023 Pharmacy Clinical [...] Joanne Morley RPh - 09/21/2023 9:[address] [facility] C MISCon 09-20-2023 C [facility] pt of Laboratory Services [address] [place] [phone] Name: KAMLA HEDRICK : 1970 Admitting Provider: Gender Female Financial [phone] : Number: Danyell ORTEZ; Intake 2; 1 [...] RYLEY October Print 09/20/2023 09:49 EST [facility] [address] [place] [phone] Name: RYLEY October : 1970 Admitting Provider: Gender Female Financial [phone] : Number: Danyell ORTEZ; Intake 2; 1 [...] October Print 09/20/2023 09:49 EST Date/Time: Normal [facility] Comment on above: Performed By: #### [id number] ####[facility] Laboratory [id number] [place] [address] Medical Director: Demetrio Rodrigez MD Pharmacy Clinical [...] Morley RPh - 09/20/2023 11:02 EST Normal [facility] ED Adult Data - Texton 09-16 [...] Problem List obtained from : Patient Agustina Godoman RN - 09/17/2023 18:33 EST (As Of: 09/17/2023 18:34:12 EST) Problems(Active) Bipolar 1 disorder (SNOMED CT :9953160867 ) Name of Problem: Bipolar 1 disorder ; Recorder: Monica Doll RN; Confirmation: Confirmed ; Classification: Patient/Family Stated ; Code: 0483558334 ; Contributor System: [employer] ; Last Updated: 06/10/2016 19:47 EST ; Life Cycle Date: 06/10/2016 ; Life Cycle Status: Active ; Vocabulary: SNOMED CT Crohns disease (SNOMED CT :3506920561 ) Name of Problem: Crohns disease ; Recorder: Zuleika Wagner RN; Confirmation: Confirmed ; Classification: Medical ; Code: 3464882179 ; Contributor System: [employer] ; Last Updated: 01/27/2017 19:25 EDT ; Life Cycle Date: 01/27/2017 ; Life Cycle Status: Active ; Vocabulary: SNOMED CT Opioid use disorder, Severe (SNOMED CT :533588504 ) Name of Problem: Opioid use disorder, Severe ; Recorder: ROBERT MENDOZA DO; Confirmation: Confirmed ; Classification: Medical ; Code: 434349639 ; Contributor System: [employer] ; Last Updated: 03/01/2017 15:02 EDT ; Life Cycle Status: Active ; Responsible Provider: ROBERT MENDOZA DO; Vocabulary: SNOMED CT Posttraumatic stress disorder (SNOMED CT :853152850 ) Name of Problem: Posttraumatic stress disorder ; Recorder: ROBERT MENDOZA DO; Confirmation: Confirmed ; Classification: Medical ; Code: 696068268 ; Contributor System: [employer] ; Last Updated: 03/01/2017 15:02 EDT ; Life Cycle Status: Active ; Responsible Provider: ROBERT MENDOZA DO; Vocabulary: SNOMED CT PTSD (post-traumatic stress disorder) (SNOMED CT :390077449 ) Name of Problem: PTSD (post-traumatic stress disorder) ; Recorder: Monica Doll RN; Confirmation: Confirmed ; Classification: Patient/Family Stated ; Code: 146308278 ; Contributor System: [employer] ; Last Updated: 06/10/2016 19:47 EST ; Life Cycle Date: 06/10/2016 ; Life Cycle Status: Active ; Vocabulary: SNOMED CT Tobacco use disorder, Moderate (SNOMED CT :09730141 ) Name of Problem: Tobacco use disorder, Moderate ; Recorder: ROBERT MENDOZA DO; Confirmation: Confirmed ; Classification: Medical ; Code: 94294137 ; Contributor System: [employer] ; Last Updated: 03/01/2017 15:03 EDT ; Life Cycle Status: Active ; Responsible Provider: ROBERT MENDOZA DO; Vocabulary: SNOMED CT Vancomycin resistant enterococcus (SNOMED CT :836533441 ) Name of Problem: Vancomycin resistant enterococcus ; Recorder: SYSTEM; Confirmation: Confirmed ; Classification: Medical ; Code: 267713368 ; Last Updated: 02/02/2016 06:33 EDT ; [...] PNED ; Probability: 0 ; Diagnosis Code: [id number] Procedure History ED Devices Present on Arrival [...] 09/17/2023 18:3 (more content not included)... Normal [facility] ED Discharge Educationon ED Discharge Education Dermatology Folliculitis: Care Instructions Overview Folliculitis (say gkw-YIZ-thc-LY-tus) is an inflammation of the pouches (follicles) [...] Where can you learn more? Go to https://www.Sarata. net/patientEd Enter M257 in the search box to learn more about Folliculitis: Care Instructions. Current as of: June 02, 2021 Content Version: 13.3 ? [employer]. Care instructions adapted under license by your healthcare professional. If you have questions about a medical condition or this instruction, always ask your healthcare professional. [employer] disclaims any warranty or liability for your [...] of fluids you drink. ? Take an vyai-rhh-txfghrh pain medicine, such as acetaminophen (Tylenol), ibuprofen (Advil, Motrin), or naproxen (Aleve). Read and follow all instructions on the label. ? Do not take two or more pain medicines at the same time unless the (more content not included)... Normal [facility] ED Emergency Severity Index Adult-Texton 09-17-2023 ED Emergency Severity Index Adult-Text AIDEN - Adult Entered On: 09/17/2023 18:30 EST Performed On: 09/17/2023 18:25 EST by Agustina Goodman RN DCP GENERIC CODE Visit Reason : swollen lymph/glands, sent from Tracking Triage Date/Time : 09/17/2023 18:30 EST Tracking Reg Status : Requested Tracking Acuity : [id number] Tracking Group : Agustina Alba RN - 09/17/2023 18:30 EST Normal [facility] ED Nrsing Adlt Triage Sep Sc rning - Texton 09-17-2023 ED Nrsing Adlt Triage Sep Scrning - Text ED Nursing Adult Triage Sepsis Screening Tool Entered On: 09/17/2023 18:30 EST Performed On: 09/17/2023 18:25 EST by Agustina Goodman RN Adult Sepsis Screening Sepsis Infection Screening ED : No Agustina Goodman RN - 09/17/2023 18:30 EST Normal [facility] ED Patient Summaryon 024 ED Patient Summary [facility] Emergency Department Discharge Instructions [address] [place] [address] (Patient Copy) Name: RYLEY October : 1970 Allergies: penicillins; naproxen; ibuprofen; doxycycline; Compazine; Bactrim Diagnosis: Bacterial folliculitis; Cervical lymphadenopathy; Skin lesion of scalp Visit Date: 09/17/2023 18:21:46 Current Date Time: 09/17/2023 19:07:16 Address: [address] [place] [address] Primary Care Provider: Name: ROBY SENA Emergency Department Care Providers: Primary Physician: CARLTON SOTO MD Thank you for choosing [facility] for your emergency care. You are very important to us. Our goal is to demonstrate our high quality medical care, and provide you with a very good patient experience. You may receive a survey about our service. Please take the time to complete the survey and return it so we can continue to enhance our service. Thank you again for allowing the [facility] Emergency Department to care for your medical needs. If you have questions about your care or follow up information please contact us at [phone]. Follow-Up Instructions KAMLA HEDRICK has been given these follow-up instructions: With: Address: When: SHIRA RIDER DR NOT ON STAFF [address] [facility] [address] [place] [phone] Within 3 to 5 days Patient Education [...] of fluids you drink. ? Take an oiqq-swj-nplvfdl pain medicine, such as acetaminophen (Tylenol), ibuprofen [...] Where can you learn more? Go to https://www.Sarata. net/patientEd Enter A919 in the search box to learn more about Swollen Lymph Nodes: Care Instructions. Current as of: August 27, 2021 Content Version: 13.3 ? [employer]. Care instructions adapted under license by your healthcare professional. If you have questions about a medical condition or this instruction, always ask your healthcare professional. [employer] disclaims any warranty or liability for your use of this information. Folliculitis: Care Instructions Overview Folliculitis (say dow-DYS-tca-LY-tus) is an inflammation of the pouches (follicles) in the skin where hair grows. It can occur on any part of the body, but it is most common on the scalp, face, armpits, and groin. Bacteria, (more content not included)... Normal [facility] ED Physician Reporton 2023 ED Physician [...] she went to the urgent care in [facility] because she felt a lump on [...] ON STAFF Within 3 to [address] [place] [id number]- Additional Instructions: Assessment This Visit Diagnosis [...] capsule)1 Capsu (more content not included)... Normal [facility] ED Progress Noteon ED Progress Note [...] steady gait out to private vehicle. Normal [facility] ED Triage Adult-Texton 09-16 ED Triage Adult-Text ED Triage Entered O n: 09/17/2023 18:33 EST Performed On: 09/17/2023 18:25 EST by Agustina Goodman RN Triage (As Of: 09/17/2023 18:33:32 EST) Problems(Active) Bipolar 1 disorder (SN[address] :5971666942 ) Name of Problem: Bipolar 1 disorder ; Recorder: Monica Doll RN; Confirmation: Confirmed ; Classification: Patient/Family Stated ; Code: 7742217276 ; Contributor System: [employer]acent[employer] ; Last Updated: 06/10/2016 19:47 EST ; Life Cycle Date: 06/10/2016 ; Life Cycle Status: Active ; Vocabulary: SNOMED CT Crohns disease (SNOMED CT :9078634645 ) Name of Problem: Crohns disease ; Recorder: Zuleika Wagner RN; Confirmation: Confirmed ; Classification: Medical ; Code: 3523212180 ; Contributor System: PowerChart ; Last Updated: 01/27/2017 19:25 EDT ; Life Cycle Date: 01/27/2017 ; Life Cycle Status: Active ; Vocabulary: SNOMED CT Opioid use disorder, Severe (SNOMED CT :856053836 ) Name of Problem: Opioid use disorder, Severe ; Recorder: ROBERT MENDOZA DO; Confirmation: Confirmed ; Classification: Medical ; Code: 808778257 ; Contributor System: PowerChart ; Last Updated: 03/01/2017 15:02 EDT ; Life Cycle Status: Active ; Responsible Provider: ROBERT MENDOZA DO; Vocabulary: SNOMED CT Posttraumatic stress disorder (SNOMED CT :597311899 ) Name of Problem: Posttraumatic stress disorder ; Recorder: ROBERT MENDOZA DO; Confirmation: Confirmed ; Classification: Medical ; Code: 801087858 ; Contributor System: [employer] ; Last Updated: 03/01/2017 15:02 EDT ; Life Cycle Status: Active ; Responsible Provider: ROBERT MENDOZA DO; Vocabulary: SNOMED CT PTSD (post-traumatic stress disorder) (SNOMED CT :657625512 ) Name of Problem: PTSD (post-traumatic stress disorder) ; Recorder: Monica Doll RN; Confirmation: Confirmed ; Classification: Patient/Family Stated ; Code: 903916132 ; Contributor System: [employer] ; Last Updated: 06/10/2016 19:47 EST ; Life Cycle Date: 06/10/2016 ; Life Cycle Status: Active ; Vocabulary: SNOMED CT Tobacco use disorder, Moderate (SNOMED CT :87244714 ) Name of Problem: Tobacco use disorder, Moderate ; Recorder: ROBERT MENDOZA DO; Confirmation: Confirmed ; Classification: Medical ; Code: 62472799 ; Contributor System: [employer]ecChart ; Last Updated: 03/01/2017 15:03 EDT ; Life Cycle Status: Active ; Responsible Provider: ROBERT MENDOZA DO; Vocabulary: SNOMED CT Vancomycin resistant enterococcus (SNOMED CT :090244173 ) Name of Problem: Vancomycin resistant enterococcus ; Recorder: SYSTEM; Confirmation: Confirmed ; Classification: Medical ; Code: 238446897 ; Last Updated: 02/02/2016 06:33 EDT ; [...] PNED ; Probability: 0 ; Diagnosis Code: [id number] (As Of: 09/17/2023 18:33:32 EST) Allergies (Active) [...] bpm Respiratory (more content not included)... Normal [facility] CNOVon 06-25-2023 CNOV Office Visit (UCWSTR ) RYLEY,OCTOBER ([id number]) 1970 F Date Time Provider Department 06/25/23 4:45 PM ASHLEE IYER [facility] During your visit today, we recorded the following information about you: Temperature Pulse Respiration Blood pressure 97.8 degrees 75/minute 20/minute 109/70 Weight 77.1 kg Ashlee Iyer APRN.MARKETING OUTREACH COORDINATOR 06/25/2023 5:27 PM Signed Subjective HPI October [...] Follow up if itching continues Ashlee Iyer APRN.MARKETING OUTREACH COORDINATOR Allergies As of Date: 06/25/2023 Noted Allergy [...] Encounter Status:Closed by ASHLEE IYER on 06/25/23 [facility] 05-12-2023 CN Office Visit (UCWSTR ) RYLEY ([id number]) 1970 F Date Time Provider Department 05/12/23 3:30 PM JEN GORE [facility] During your visit today, we recorded the [...] - PREDNISONE 10 MG TABLET Jen Gore APRN.MARKETING OUTREACH COORDINATOR Allergies As of Date: 05/12/2023 Noted Allergy [...] Date Reviewed: 05/12/2023 Reviewed by: Jen Gore APRN.MARKETING OUTREACH COORDINATOR - Fully Assessed Reason for Visit: Cough [28] Cmt: LACY, coughing up mucus, chest feels heavy x 2.5 weeks Primary Visit Diagnosis:Acute cough [R05.1] Other Visit Diagnosis:History of asthma [Z87.09] Order(s):XR CHEST 2V FRONTAL/LAT [0344304] Order #: [id number]. #:[id number] predniSONE (DELTASONE) 10 mg tabletTake 4 tabs [...] Status:Closed by JEN GORE on 05/12/23 Normal [facility] XR CHEST 2V FRONTAL/LATon XR CHEST 2V [...] upper quadrant. IMPRESSION: No acute radiographic abnormality. Supervisor [employer]: SHAILESH Transcribe Date/Time: May 12 2023 4:07P Dictated by : LENARD JOSE MD This examination was interpreted and the report reviewed and electronically signed by: LENARD JOSE MD on May 12 2023 4:08PM EST [id number] Normal [facility] XR Chest PA and Lateralon IMPRESSION: No acute radiographic abnormality. Supervisor [employer]: PSCB Transcribe Date/Time: May 12 2023 4:07P [...] right upper quadrant. DIVISION OF RADIOLOGY Provider, [facility] - 05/12/2023 * * *Final Report* [...] quadrant. IMPRESSION IMPRESSION: No acute radiographic abnormality. Supervisor [employer]: SHAILESH Transcribe Date/Time: May 12 2023 4:07P Dictated by : LENARD JOSE MD This examination was interpreted and the report reviewed and electronically signed by: LENARD JOSE MD on May 12 2023 4:08PM EST [facility] Radiology Study observation (narrative) [facility] XR Chest PA and LateralOrder ed By: Ccf Provider on 05-12-2023 [facility] HBV surface Ag Ser Qlon 03-19 HBV surface Ag Ql (S) Negative Normal Negative [facility] Comment on above: Order Comment: Speci men Type: BLOOD SPECIMEN Ordering Facility: [facility] Address: [address] [place] [address] Performed By: #### 5 195-3, 42955-9, 76844-7 #### [facility] CLIA [id number] [address] [place] [address] [place] HCV Ab Ser Qlon 04-05-2023 HCV Ab Ql (S) Positive Abnormal Negative [facility] Comment on above: Order Comment: Speci men Type: BLOOD SPECIMEN Ordering Facility: [facility] Address: [address] [place] [address] Performed By: #### 1 6128-1, 13675-2 #### [facility] CLIA [id number] [address] [place] [address] [place] HCV RNA SerPl FRED+probe-aCnc on 04-05-2023 HCV RNA FRED+probe Qn Not detected Normal HCV RNA not detected by PCR. [facility] Comment on above: Order Comment: Speci men Type: BLOOD SPECIMEN Ordering Facility: [facility] Address: [address] [place] [address] Performed By: #### 1 6128-1, 24990-8 #### [facility] CLIA [id number] [address] [place] [address] [place] HIV 1+2 Ab IA Qlon 3 HIV 1 and 2 Ab IA.rapid Nom Normal [facility] Comment on above: Order Comment: Speci men Type: BLOOD SPECIMEN Ordering Facility: [facility] Address: [address] [place] [address] Result Comment: Test not indicated. Performed By: #### 5 195-3, 26494-6, 84445-9 #### [facility] CLIA [id number] [address] [place] [address] [place] HIV 1+2 Ab+HIV1 p24 Ag IA Ql Non-Reactive Normal Nonreactive [facility] Comment on above: Order Comment: Speci men Type: BLOOD SPECIMEN Ordering Facility: [facility] Address: [address] [place] [address] Performed By: #### 5 195-3, 52256-0, 34473-9 #### [facility] CLIA [id number] [address] [place] [address] [place] HIV immunoassay testing algorithm interpretation (S/P/Bld) [Interp] Normal [facility] Comment on above: Order Comment: Speci men Type: BLOOD SPECIMEN Ordering Facility: [facility] Address: [address] [place] [address] Result Comment: No e vidence of HIV-1 or HIV-2 infection. Should recent infection be suspected, repeat testing may be considered 2-3 weeks after this draw. [place] Rev. Code 3701.243(E): This information has been [...] or diagnoses. Performed By: #### 5 195-3, 21966-3, 69960-2 #### [facility] CLIA [id number] [address] [place] [address] [place] HPV W/GENOTYPE THIN PREPon 0 04-05-2023 HPV 16 Ag Ql (Unsp spec) Negative Normal Negative for HPV DNA high risk type 16 by PCR [facility] Comment on above: Order Comment: Speci men Type: FLUID SPECIMEN Ordering Facility: [facility] Address: [address] [place] [address] Performed By: #### H PVHRT #### [facility] CLIA [id number] [address] [place] [address] [place] HPV 18 Ag Ql (Unsp spec) Negative Normal Negative for HPV DNA high risk type 18 by PCR [facility] Comment on above: Order Comment: Speci men Type: FLUID SPECIMEN Ordering Facility: [facility] Address: [address] [place] [address] Performed By: #### H PVHRT #### [facility] CLIA [id number] [address] [place] [address] [place] HPV 31+33+35+39+45+51+52+ 56+58+59+66+68 DNA FRED+probe Ql (Cvx) Negative for HPV DNA high risk types: 31,33,35,39,45,51,52,56 ,58,59,66,68 by PCR. Normal Negative for HPV DNA high risk types: 31,33,35,39,4 5,51,52,56,58 ,59,66,68 by PCR. [facility] Comment on above: Order Comment: Speci men Type: FLUID SPECIMEN Ordering Facility: [facility] Address: [address] [place] [address] Performed By: #### H PVHRT #### [facility] CLIA [id number] [address] [place] [address] [place] PAP TESTon 04-05-2023 ADEQUACY Normal [facility] Comment on above: Order Comment: Speci men Type: FLUID SPECIMEN Ordering Facility: [facility] Address: [address] [place] [address] Result Comment: Sati sfactory for interpretation No endocervical component Performed By: #### L [id number] #### [facility] CLIA [id number] [address] [place] [address] [place] CASE REPORT Normal [facility] Comment on above: Order Comment: Speci men Type: FLUID SPECIMEN Ordering Facility: [facility] Address: [address] [place] [address] Result Comment: Gyne cologic Cytology Report Case: [id number] Authorizing Provider: Susan Herrera NP Collected: 04/05/2023 02:30 PM Ordering Location: [facility] Received: 04/06/2023 09:57 AM First Screen: Mohorcic, Stefani, CT, ASCP Specimen: Pap Test, ThinPrep, Cervix Performed By: #### L [id number] #### [facility] CLIA [id number] [facility] [place] [address] [place] CLINICAL HISTORY, CYTOLOGY, PRECISION MECHANICAL INSTRUMENT MAKER Routine Exam Normal [facility] Comment on above: Order Comment: Speci men Type: FLUID SPECIMEN Ordering Facility: [facility] Address: [address] [place] [address] Result Comment: Prev ious pap date: 2019 Performed By: #### L [id number] #### [facility] CLIA [id number] [address] [place] [address] [place] CYTOLOGY PAP OTHER INT Predominance of coccobacilli consistent with shift in vaginal pretty Normal [facility] Comment on above: Order Comment: Speci men Type: FLUID SPECIMEN Ordering Facility: [facility] Address: [address] [place] [address] Performed By: #### L [id number] #### [facility] CLIA [id number] [address] [place] [address] [place] FINAL PERFORMING LAB Normal [facility] Comment on above: Order Comment: Speci men Type: FLUID SPECIMEN Ordering Facility: [facility] Address: [address] [place] [address] Result Comment: Tech nical component, client sales and service officer screening performed at [facility], [address] [place] [address] CLIA# [id number] Diagnostic interpretation performed at [facility], [address] [place] [address] [place] [address] CLIA# [id number] Palletiser Operator: Carlos Medeiros M.D. Performed By: #### L [id number] #### [facility] CLIA [id number] [address] [place] [address] [place] HPV REFLEX Yes HPV Normal [facility] Comment on above: Order Comment: Speci men Type: FLUID SPECIMEN Ordering Facility: [facility] Address: [address] [place] [address], [place] [address] Performed By: #### L [id number] #### [facility] CLIA [id number] [address] [address] [place] INTERPRETATION, CYTOLOGY, PRECISION MECHANICAL INSTRUMENT MAKER Normal [facility] Comment on above: Order Comment: Speci men Type: FLUID SPECIMEN Ordering Facility: [facility] Address: [address] [place] [address] Result Comment: Nega tive for intraepithelial lesion or malignancy. Performed By: #### L [id number] #### [facility] CLIA [id number] [address] [place] [address] [place] LMP 08/2022 Normal [facility] Comment on above: Order Comment: Speci men Type: FLUID SPECIMEN Ordering Facility: [facility] Address: [address] [place] [address] Performed By: #### L [id number] #### [facility] CLIA [id number] [address] [place] [address] [place] PAP DISCLAIMER COMMENT The Pap Smear is a screening test for cervical cancer. False negative results occur with all screening tests, emphasizing the need for rescreening at recommended intervals, and clinical correlation. Normal [facility] Comment on above: Order Comment: Speci men Type: FLUID SPECIMEN Ordering Facility: [facility] Address: [address] [place] [address] Performed By: #### L [id number] #### [facility] CLIA [id number] [address] [place], [place] [id number] [place] PAP BUILDING AND GROUNDS SUPERVISOR COMMENT This specimen has be en analyzed by the ThinPrep Imaging System, an automated imaging and review system, which assists the laboratory in evaluating cells on ThinPrep Pap tests. Following automated imaging, selected arriola from every slide are reviewed by a client sales and service officer. Normal [facility] Comment on above: Order Comment: Speci men Type: FLUID SPECIMEN Ordering Facility: [facility] Address: [address] [place] [address], [place] [address] Performed By: #### L [id number] #### [facility] CLIA [id number] [address] [place] [address] [place] Reagin and Treponema pallidu m IgG and IgM [Interp]on 04-05-2023 T. pallidum IgG+IgM IA Ql (S) Non-Reactive Normal Nonreactive [facility] Comment on above: Order Comment: Speci men Type: BLOOD SPECIMEN Ordering Facility: [facility] Address: [address] [place] [address], [place] [address] Performed By: #### 5 195-3, 36473-0, 44523-6 #### [facility] CLIA [id number] [address] [place] [address] [place] Reagin+T pallidum IgG+IgM Se rPl-Impon 04-05-2023 Reagin and Treponema pallidum IgG and IgM [Interp] Cannot exclude recent Treponemal infection if specimen collected within 7-10 days after appearance of suspect lesions or 2-3 weeks after an exposure. Clinical correlation is required. Normal [facility] Comment on above: Order Comment: Speci men Type: BLOOD SPECIMEN Ordering Facility: [facility] Address: [address] [place] [address], [place] [id number] Performed By: #### 5 195-3, 33511-5, 23341-5 #### [facility] CLIA [id number] [address] [place] [address] [place] Basic Metabolic Profile (BMP )on 03-02-2023 BUN/CRE 9.2 RATIO Low 10-20 [facility] Comment on above: Performed By: #### L 500.2500 ####[facility] [address] [place], [place], [id number] [place],Total 8.1 mg/dL Low 8.5-10.1 [facility] Comment on above: Performed By: #### L 500.2500 ####[facility] [address] [place], [address] Chloride [Moles/Vol] 117 mmol/L High 98-107 [facility] Comment on above: Performed By: #### L 500.2500 ####[facility] [address] [place], [address] CO2 [Moles/Vol] 22.0 mmol/L Normal 21.0-32.0 [facility] Comment on above: Performed By: #### L 500.2500 ####[facility] [address] [place], [address] Creatinine [Mass/Vol] 0.76 mg/dL Normal 0.55-1.02 [facility] Comment on above: Result Comment: The validity of the calculated GFR GFRAA in patients over 70 years has not been determined. Clinical correlation is essential. Performed By: #### L 500.2500 ####[facility] [address] [place], [address] ECRCL 82.90 ml/min Normal [facility] Comment on above: Performed By: #### L 500.2500 ####[facility] [address] [place], [address] EST GFR - AA 104 mL/min Normal >60 [facility] Comment on above: Result Comment: Afri can Moldovan GFR Calc Performed By: #### L 500.2500 ####[facility] [address] [place], [address] GAP 4 Low 5-15 [facility] Comment on above: Performed By: #### L 500.2500 ####[facility] [address] [place], [address] GFR/1.73 sq M.predicted among non-blacks MDRD (S/P/Bld) [Vol rate/Area] 86 mL/min/{1.73_m2} Normal >60 [facility] Comment on above: Result Comment: Non- GFR Calc Performed By: #### L 500.2500 ####[facility] [address] [place], [address] Glucose [Mass/Vol] 106 mg/dL Normal 74-106 [facility] Comment on above: Result Comment: Fast ing Glucose result from 100 to 125 mg/dL suggests IMPAIRED HOMEOSTASIS per A.D.A. criteria. Performed By: #### L 500.2500 ####[facility] [address] [place], [address] Potassium [Moles/Vol] 4.0 mmol/L Normal 3.5-5.1 [facility] Comment on above: Performed By: #### L 500.2500 ####[facility] [address] [place], [address] Sodium [Moles/Vol] 143 mmol/L Normal 136-145 [facility] Comment on above: Performed By: #### L 500.2500 ####[facility] [address] [place], [address] Urea nitrogen [Mass/Vol] 7 mg/dL Normal 7-18 [facility] Comment on above: Performed By: #### L 500.2500 ####[facility] [address] [place], [address] Basophil percentageOrdered B y: Taylor Alarcon on 03-02-2023 Chloride [Moles/Vol] 117 mmol/L 98-107 [facility] Glucose [Mass/Vol] 106 mg/dL 74-106 [facility] Comment on above: Fasting Glucose resu lt from 100 to 125 mg/dL suggests IMPAIRED HOMEOSTASIS per A.D.A. criteria. Potassium [Moles/Vol] 4.0 mmol/L 3.5-5.1 [facility] Sodium [Moles/Vol] 143 mmol/L 136-145 [facility] - Chemistry and C hemistry - challengeOrdered By: Taylor Alarcon on 03-02-2023 CO2 [Moles/Vol] 22.0 mmol/L 21.0-32.0 [facility] Urea nitrogen/Creatinine [Mass ratio] 9.2 mg/mg 10-20 [facility] Miscellaneous Lab Procedureo n 03-02-2023 [facility] LAB TEST Normal [facility] Comment on above: Order Comment: [id number] HEP C CONFIRMATION, SERUM, FROZEN Result Comment: TEST RESULT LIMITS HCV RNA Diagnosis, FRED HCV RNA, Quantitation HCV Not Detected IU/mL No evidence of active HCV infection. Test Information: The quantitative range of this assay is 15 IU/mL to 100 million IU/mL. TESTING PERFORMED AT [facility]. ORIGINAL REPORT ON FILE IN LAB CONTAINS ADDITIONAL TEST SITE INFORMATION. Performed By: #### L 3890.6200, L3890.6100, L801.1541, L3890.6300 #### [facility] [address] [place], [address] No Panel InformationOrdered By: Taylor Alarcon on 03-02-2023 Estimated Creatinine Clearance Calc 82.90 ml/min [facility] Estimated GFR (MDRD) Amer 104 mL/min >60 [facility] Comment on above: GFR Calc Estimated GFR (MDRD) Non-Af Amer 86 mL/min >60 [facility] Comment on above: Non- GFR Calc Serum or plasma calcium alice urement (mass/volume)Ordered By: Taylor Alarcon on 03-02-2023 Calcium [Mass/Vol] 8.1 mg/dL 8.5-10.1 [facility] Serum or plasma creatinine m easurement (mass/volume)Ordered By: Taylor Alarcon on 03-02-2023 Creatinine [Mass/Vol] 0.76 mg/dL 0.55-1.02 [facility] Comment on above: The validity of the calculated GFR & GFRAA in patients over 70 years has not been determined. Clinical correlation is essential. Serum or plasma urea nitroge n measurement (mass/volume)Ordered By: Taylor Alarcon on 03-02-2023 Urea nitrogen [Mass/Vol] 7 mg/dL 02-02 [facility] Thin prep Papanicolaou smear with manual screeningOrdered By: Taylor Alarcon on 03-02-2023 Thin prep Papanicolaou smear with manual screening 11-30 [facility] 12 Lead EKGon 03-01-2023 12 Lead EKG [facility] Cardiovascular Services [address] [place] [address] 12 Lead EKG 03/01/23 0427 MR#: [id number] Acct: [id number] Name: RYLEYOctober Rep #: [id number] : 1970 52 From: Rachelle Lopez MD Attending Dr: Dr. Taylor Alarcon DO Status: DIS I NO Ordering Dr: Kristen Caraballo MD Date: 03/01/23 Location: [facility] Sex: F AA Admitted: 03/01/23 Test Reason [...] previous ECGs available Confirmed by RACHELLE LOPEZ ([id number]), industrial editor ARIANA NOEL ([id number]) on 03/09/2023 9:40:37 AM Referred By: AW Confirmed By:RACHELLE LOPEZ 03/09/23 0940 Date Rachelle Lopez MD CC: Dr. Kristen Caraballo MD; Dr. Shira Rider MD; Dr. Taylor Alarcon DO Signed Normal [facility] Absolute lymphocyte countOrd ered By: Fabio Mcbride on 03-01-2023 Lymphocytes Auto (Unsp spec) [#/Vol] 2.09 10*3/uL 0.83-4.51 [facility] Alcohol, Blood (Medical)-Ser umon 03-01-2023 SERUM ETOH < 3.0 Normal [facility] Comment on above: Result Comment: The serum:whole blood ethanol ratio is approximately 1.14 and varies slightly with hematocrit. Medical Alcohol reference interval and critical value in non-tolerant individuals; 50 - 100 Impairment 100 Intoxication 100 - 250 Severe Poisoning 250 - 400 Deep/possible fatal coma Performed By: #### L 700.6800, L505.5000, L500.2500, L100.0100, L501.9100 ####[facility] [address] [place], [address] Basic Metabolic Profile (BMP )on 03-01-2023 BUN/CRE 11.8 RATIO Normal 10-20 [facility] Comment on above: Performed By: #### L 700.6800, L505.5000, L500.2500, L100.0100, L501.9100 ####[facility] [address] [place], [address] CA,Total 9.0 mg/dL Normal 8.5-10.1 [facility] Comment on above: Performed By: #### L 700.6800, L505.5000, L500.2500, L100.0100, L501.9100 ####[facility] [address] [place], [address] Chloride [Moles/Vol] 110 mmol/L High 98-107 [facility] Comment on above: Performed By: #### L 700.6800, L505.5000, L500.2500, L100.0100, L501.9100 ####[facility] [address] [place], [address] CO2 [Moles/Vol] 31.0 mmol/L Normal 21.0-32.0 [facility] Comment on above: Performed By: #### L 700.6800, L505.5000, L500.2500, L100.0100, L501.9100 ####[facility] [address] [place], [place], [id number] Creatinine [Mass/Vol] 0.93 mg/dL Normal 0.55-1.02 [facility] Comment on above: Result Comment: The validity of the calculated GFR GFRAA in patients over 70 years has not been determined. Clinical correlation is essential. Performed By: #### L 700.6800, L505.5000, L500.2500, L100.0100, L501.9100 ####[facility] [address] [place], [address] ECRCL 65.12 ml/min Normal [facility] Comment on above: Performed By: #### L 700.6800, L505.5000, L500.2500, L100.0100, L501.9100 ####[facility] [address] [place], [address] EST GFR - AA 82 mL/min Normal >60 [facility] Comment on above: Result Comment: Afri can Moldovan GFR Calc Performed By: #### L 700.6800, L505.5000, L500.2500, L100.0100, L501.9100 ####[facility] [address] [place], [address] GAP 4 Low 5-15 [facility] Comment on above: Performed By: #### L 700.6800, L505.5000, L500.2500, L100.0100, L501.9100 ####[facility] [address] [place], [place], [address] GFR/1.73 sq M.predicted among non-blacks MDRD (S/P/Bld) [Vol rate/Area] 67 mL/min/{1.73_m2} Normal >60 [facility] Comment on above: Result Comment: Non- GFR Calc Performed By: #### L 700.6800, L505.5000, L500.2500, L100.0100, L501.9100 ####[facility] [address] [place], [address] Glucose [Mass/Vol] 155 mg/dL High 74-106 [facility] Comment on above: Result Comment: Fast ing Glucose result greater than or equal to 126 mg/dL suggests DIABETES MELLITUS per A.D.A. criteria. Performed By: #### L 700.6800, L505.5000, L500.2500, L100.0100, L501.9100 ####[facility] [address] [place], [address] Potassium [Moles/Vol] 3.2 mmol/L Low 3.5-5.1 [facility] Comment on above: Performed By: #### L 700.6800, L505.5000, L500.2500, L100.0100, L501.9100 ####[facility] [address] [place], [address] Sodium [Moles/Vol] 145 mmol/L Normal 136-145 [facility] Comment on above: Performed By: #### L 700.6800, L505.5000, L500.2500, L100.0100, L501.9100 ####[facility] [address] [place], [address] Urea nitrogen [Mass/Vol] 11 mg/dL Normal 7-18 [facility] Comment on above: Performed By: #### L 700.6800, L505.5000, L500.2500, L100.0100, L501.9100 ####[facility] [address] [place], [address] Basophil percentageOrdered B y: Kristen White on 03-01-2023 Bilirubin [Mass/Vol] 0.50 mg/dL 0.20-1.00 [facility] Comment on above: For patients on eltr ombopag therapy, use of Dimension [place] TBIL is not recommended. Protein [Mass/Vol] 6.1 g/dL 6.4-8.2 [facility] Bilirubin [Mass/Vol] 0.70 mg/dL 0.20-1.00 [facility] Comment on above: For patients on eltr ombopag therapy, use of Dimension [place] TBIL is not recommended. Protein [Mass/Vol] 7.2 g/dL 6.4-8.2 [facility] Basophil percentageOrdered B y: Fabio Mcbride on 03-01-2023 Basophils/100 WBC (Bld) 0.9 % 0-1 [facility] Chloride [Moles/Vol] 110 mmol/L 98-107 [facility] Eosinophils/100 WBC (Bld) 4.9 % 0-5 [facility] Glucose [Mass/Vol] 155 mg/dL 74-106 [facility] Comment on above: Fasting Glucose resu lt greater than or equal to 126 mg/dL suggests DIABETES MELLITUS per A.D.A. criteria. Neutrophils (Bld) [#/Vol] 3.5 10*3/uL 2.0-7.7 [facility] Neutrophils/100 WBC (Bld) 54.0 % 47-70 [facility] Potassium [Moles/Vol] 3.2 mmol/L 3.5-5.1 [facility] Sodium [Moles/Vol] 145 mmol/L 136-145 [facility] WBC (Bld) [#/Vol] 6.4 10*3/uL 4.4-11.0 [facility] Beta hCG serum qualOrdered B y: Fabio Mcbride on 03-01-2023 Beta HCG ( test) Ql Negative [facility] Blood erythrocytes count (nu mber/volume)Ordered By: Fabio Mcbride on 03-01-2023 RBC (Bld) [#/Vol] 3.91 10*6/uL 4.2-5.4 [facility] Blood hemoglobin measurement (mass/volume)Ordered By: Fabio Mcbride on 03-01-2023 Hemoglobin (Bld) [Mass/Vol] 11.2 g/dL 12.0-15.0 [facility] Blood lymphocytes/100 leukoc ytesOrdered By: Fabio Mcbride on 03-01-2023 Lymphocytes/100 WBC (Bld) 32.7 % 19-41 [facility] Blood monocytes/100 leukocyt esOrdered By: Fabio Mcbride on 03-01-2023 Monocytes/100 WBC (Bld) 7.2 % 0-10 [facility] Blood platelet mean volumeOr dered By: Fabio Mcbride on 03-01-2023 Platelet mean volume (Bld) [Entitic vol] 9.2 fL 6.2-12.0 [facility] CBC W/Diff, Automatedon 02-16 Absolute Lymph 2.09 X10 3/uL Normal 0.83-4.51 [facility] Comment on above: Performed By: #### L 700.6800, L505.5000, L500.2500, L100.0100, L501.9100 ####[facility] [address] [place], [address] Absolute Neut 3.5 X10 3/uL Normal 2.0-7.7 [facility] Comment on above: Performed By: #### L 700.6800, L505.5000, L500.2500, L100.0100, L501.9100 ####[facility] [address] [place], [address] Basophils/100 WBC (Bld) 0.9 % Normal 0-1 [facility] Comment on above: Performed By: #### L 700.6800, L505.5000, L500.2500, L100.0100, L501.9100 ####[facility] [address] [place], [address] Eosinophils/100 WBC (Bld) 4.9 % Normal 0-5 [facility] Comment on above: Performed By: #### L 700.6800, L505.5000, L500.2500, L100.0100, L501.9100 ####[facility] [address] [place], [address] Erythrocyte distribution width (RBC) [Ratio] 13.4 % Normal 11.6-14.6 [facility] Comment on above: Performed By: #### L 700.6800, L505.5000, L500.2500, L100.0100, L501.9100 ####[facility] [address] [place], [address] Hematocrit (Bld) [Volume fraction] 35.1 % Low 37-47 [facility] Comment on above: Performed By: #### L 700.6800, L505.5000, L500.2500, L100.0100, L501.9100 ####[facility] [address] [place], [address] Hemoglobin (Bld) [Mass/Vol] 11.2 g/dL Low 12.0-15.0 [facility] Comment on above: Performed By: #### L 700.6800, L505.5000, L500.2500, L100.0100, L501.9100 ####[facility] [address] [place], [address] IG% 0.300 Normal 0.0-0.9 [facility] Comment on above: Result Comment: IG% - Immature Granulocytes (promyelocytes, myelocytes and metamyelocytes) > 1% indicates that a LEFT SHIFT is Present. Performed By: #### L 700.6800, L505.5000, L500.2500, L100.0100, L501.9100 ####[facility] [address] [place], [address] Lymphocytes/100 WBC (Bld) 32.7 % Normal 19-41 [facility] Comment on above: Performed By: #### L 700.6800, L505.5000, L500.2500, L100.0100, L501.9100 ####[facility] [address] [place], [address] MCH (RBC) [Entitic mass] 28.6 pg Normal 27.0-32.0 [facility] Comment on above: Performed By: #### L 700.6800, L505.5000, L500.2500, L100.0100, L501.9100 ####[facility] [address] [place], [address] MCHC (RBC) [Mass/Vol] 31.9 g/dL Low 32-36 [facility] Comment on above: Performed By: #### L 700.6800, L505.5000, L500.2500, L100.0100, L501.9100 ####[facility] [address] [place], [address] MCV (RBC) [Entitic vol] 89.8 fL Normal 81-99 [facility] Comment on above: Performed By: #### L 700.6800, L505.5000, L500.2500, L100.0100, L501.9100 ####[facility] [address] [place], [address] Monocytes/100 WBC (Bld) 7.2 % Normal 0-10 [facility] Comment on above: Performed By: #### L 700.6800, L505.5000, L500.2500, L100.0100, L501.9100 ####[facility] [address] [place], [address] Neutrophils/100 WBC (Bld) 54.0 % Normal 47-70 [facility] Comment on above: Performed By: #### L 700.6800, L505.5000, L500.2500, L100.0100, L501.9100 ####[facility] [address] [place], [address] Nucleated RBC (Bld) [#/Vol] 0 10*3/uL Normal 0-5 [facility] Comment on above: Performed By: #### L 700.6800, L505.5000, L500.2500, L100.0100, L501.9100 ####[facility] [address] [place], [address] Platelet mean volume (Bld) [Entitic vol] 9.2 fL Normal 6.2-12.0 [facility] Comment on above: Performed By: #### L 700.6800, L505.5000, L500.2500, L100.0100, L501.9100 ####[facility] [address] [place], [address] Platelets (Bld) [#/Vol] 321 10*3/uL Normal 150-450 [facility] Comment on above: Performed By: #### L 700.6800, L505.5000, L500.2500, L100.0100, L501.9100 ####[facility] [address] [place], [address] RBC (Bld) [#/Vol] 3.91 10*6/uL Low 4.2-5.4 [facility] Comment on above: Performed By: #### L 700.6800, L505.5000, L500.2500, L100.0100, L501.9100 ####[facility] [address] [place], [address] RDW SD 43.7 fl Normal 35.1-43.9 [facility] Comment on above: Performed By: #### L 700.6800, L505.5000, L500.2500, L100.0100, L501.9100 ####[facility] [address] [place], [address] WBC (Bld) [#/Vol] 6.4 10*3/uL Normal 4.4-11.0 [facility] Comment on above: Performed By: #### L 700.6800, L505.5000, L500.2500, L100.0100, L501.9100 ####[facility] [address] [place], [address] Comprehensive Metabolic Prof ndfransisco 03-01-2023 Albumin [Mass/Vol] 2.9 g/dL Low 3.2-5.0 [facility] Comment on above: Performed By: #### L 501.9985, L500.4050 ####[facility] [address] [place], [address] Albumin/Globulin [Mass ratio] 0.9 {ratio} Normal 0.9-2.4 [facility] Comment on above: Performed By: #### L 501.9985, L500.4050 ####[facility] [address] [place], [address] ALK P 70 U/L Normal 45-117 [facility] Comment on above: Performed By: #### L 501.9985, L500.4050 ####[facility] [address] [place], [address] ALT [Catalytic activity/Vol] 20 U/L Normal 13-56 [facility] Comment on above: Performed By: #### L 501.9985, L500.4050 ####[facility] [address] [place], [address] AST [Catalytic activity/Vol] 16 U/L Normal 15-37 [facility] Comment on above: Performed By: #### L 501.9985, L500.4050 ####[facility] [address] [place], [address] Bilirubin [Mass/Vol] 0.50 mg/dL Normal 0.20-1.00 [facility] Comment on above: Result Comment: For patients on eltrombopag therapy, use of Dimension [place] TBIL is not recommended. Performed By: #### L 501.9985, L500.4050 ####[facility] [address] [place], [address] BUN/CRE 13.5 RATIO Normal 10-20 [facility] Comment on above: Performed By: #### L 501.9985, L500.4050 ####[facility] [address] [place], [address] CA,Total 8.1 mg/dL Low 8.5-10.1 [facility] Comment on above: Performed By: #### L 501.9985, L500.4050 ####[facility] [address] [place], [address] Chloride [Moles/Vol] 113 mmol/L High 98-107 [facility] Comment on above: Performed By: #### L 501.9985, L500.4050 ####[facility] [address] [place], [address] CO2 [Moles/Vol] 27.0 mmol/L Normal 21.0-32.0 [facility] Comment on above: Performed By: #### L 501.9985, L500.4050 ####[facility] [address] [place], [address] Creatinine [Mass/Vol] 0.74 mg/dL Normal 0.55-1.02 [facility] Comment on above: Result Comment: The validity of the calculated GFR GFRAA in patients over 70 years has not been determined. Clinical correlation is essential. Performed By: #### L 501.9985, L500.4050 ####[facility] [address] [place], [address] ECRCL 85.14 ml/min Normal [facility] Comment on above: Performed By: #### L 501.9985, L500.4050 ####[facility] [address] [place], [address] EST GFR - AA 107 mL/min Normal >60 [facility] Comment on above: Result Comment: Afri can Moldovan GFR Calc Performed By: #### L 501.9985, L500.4050 ####[facility] [address] [place], [address] GAP 7 Normal 5-15 [facility] Comment on above: Performed By: #### L 501.9985, L500.4050 ####[facility] [address] [place], [address] GFR/1.73 sq M.predicted among non-blacks MDRD (S/P/Bld) [Vol rate/Area] 88 mL/min/{1.73_m2} Normal >60 [facility] Comment on above: Result Comment: Non- GFR Calc Performed By: #### L 501.9985, L500.4050 ####[facility] [address] [place], [address] Globulin (S) [Mass/Vol] 3.2 g/dL Normal 2.2-4.2 [facility] Comment on above: Performed By: #### L 501.9985, L500.4050 ####[facility] [address] [place], [address] Glucose [Mass/Vol] 114 mg/dL High 74-106 [facility] Comment on above: Result Comment: Fast ing Glucose result from 100 to 125 mg/dL suggests IMPAIRED HOMEOSTASIS per A.D.A. criteria. Performed By: #### L 501.9985, L500.4050 ####[facility] [address] [place], [address] Potassium [Moles/Vol] 3.0 mmol/L Low 3.5-5.1 [facility] Comment on above: Performed By: #### L 501.9985, L500.4050 ####[facility] [address] [place], [address] Sodium [Moles/Vol] 147 mmol/L High 136-145 [facility] Comment on above: Performed By: #### L 501.9985, L500.4050 ####[facility] [address] [place], [address] T PROT 6.1 g/dL Low 6.4-8.2 [facility] Comment on above: Performed By: #### L 501.9985, L500.4050 ####[facility] [address] [place], [address] Urea nitrogen [Mass/Vol] 10 mg/dL Normal 7-18 [facility] Comment on above: Performed By: #### L 501.9985, L500.4050 ####[facility] [address] [place], [address] Determination of erythrocyte mean corpuscular volume (MCV)Ordered By: Fabio Mcbride on 03-01-2023 MCV (RBC) [Entitic vol] 89.8 fL 81-99 [facility] Direct bilirubinOrdered By: Kristen Caraballo on 03-01-2023 Bilirubin.direct [Mass/Vol] 0.18 mg/dL 0.00-0.30 [facility] Emergency Department Summary on 03-01-2023 Emergency Department Summary [facility] Medical Records Department [address] [place] [address] Emergency Department Summary 03/01/23 MR#: [id number] Acct: [id number] Name: KAMLA HEDRICK Rep #: [id number] : 1970 52 From: Fabio Lieberman PCP: Dr. Shira Rider MD Status:ADM IN Location: [place] [address] HPI History of Present Illness Chief Complaint: Substance Abuse Informant: patient Narrative Narrative: Presents here requesting detox. Reports previous heroin user went to [facility] in 2018. Patient relapsed this past September [...] She was reporting when she was in [place] had polysubstance findings from her toxicology screen including methadone MDMA and benzos which she states she did not use those. She had meth stating she tried it before [facility] did not like it. Medically discussion she states she has concerns for leg swelling. No trouble urinating. She states she was attacked by pit bull in January before going to [place]. Denies any fevers. Prior similar symptoms: Yes PFSH [facility] Medical History (Updated 03/01/23 @ 01:46 [...] for respiratory (more content not included)... Normal [facility] H AND P Exam - Hospitaliston 03-01-2023 H&P Exam - Hospitalist [facility] Medical Records Department [address] [place] [address] H P Exam - Hospitalist 03/01/23 0145 MR#: [id number] Acct: [id number] Name: RYLEYOctober Rep #: [id number] : 1970 52 From: Kristen Caraballo MD PCP: Dr. Shira Rider MD Status:ADM IN Location: [facility] [id number] HPI - General General Date of Admission: 03/01/23 Date of Service: 03/01/23 Chief Complaint: Acute Opiate withdrawal HPI Narrative The patient is a 52 y/o F w/ PMHx: Allergic rhinitis, HTN, Anxiety and Depression/Bipolar disorder, GERD, Overweight, Polysubstance abuse (Percocet/Opiates/Cocai ne, Prior IVDA w/ heroin) who presents to the [facility] ED on 03/01/23 with noted acute [...] MDMA and cocaine, ethyl alcohol level <3. [facility] Medical History (Updated 03/01/23 @ 01:46 [...] of splenectomy. (more content not included)... Normal [facility] HIV - WCHon 03-01-2023 HIV Non-Reactive Normal Nonreactive [facility] Comment on above: Performed By: #### L 3890.6005, L509.8000, L501.5200, L500.3400 ####[facility] [address] [place], [address] HIV 1 and HIV-2 antibody ass ay with HIV-1 p24 antigen detectionOrdered By: Kristen Caraballo on 03-01-2023 HIV 1+2 Ab+HIV1 p24 Ag IA Ql Non-Reactive Nonreactive [facility] Hematocrit Auto (Bld) [Volum e fraction]Ordered By: Fabio Mcbride on 03-01-2023 Hematocrit (Bld) [Volume fraction] 35.1 % 37-47 [facility] Hemoglobin A1con 03-01-2023 HbA1c (Bld) [Mass fraction] 5.3 % Normal 3.8-5.6 [facility] Comment on above: Result Comment: Norm al < 5.7 % Prediabetic 5.7 - 6.4 % Diabetic >or= 6.5 % Please note range changes. Performed By: #### L 501.9985, L500.4050 ####[facility] [address] [place], [place], [id number] Hepatitis B Surface Antibody on 03-01-2023 HEP B Surf Ab Reactive Normal [facility] Comment on above: Order Comment: Reaso n for Exam: Hepatitis Screen RESULTS CALLED TO JOLENE KENNEDY RN (U) 03/01/23 0439 Mandeep Rabago. REPORT READ BACK BY SAME. Result Comment: Non Reactive: Inconsistent with immunity less than <10 mIU/mL Reactive: Consistent with immunity greater than or equal to 10 mIU/mL Performed By: #### L 3890.6200, L3890.6100, L801.1541, L3890.6300 #### [facility] Laboratory [address] [place], [address] Hepatitis B Surface Antigeno n 03-01-2023 HEP B Surf Ag Non-Reactive Normal Nonreactive [facility] Comment on above: Order Comment: Reaso n for Exam: Hepatitis Screen RESULTS CALLED TO JOLENE KENNEDY RN ([facility]) 03/01/23 0439 Mandeep Rabago. REPORT READ BACK BY SAME. Result Comment: AMENDED REPORT 03/01/23614 HEPB Surface Ag previously reported as: Nonreactive Performed By: #### L 3890.6200, L3890.6100, L801.1541, L3890.6300 #### [facility] [address] [place], [address] Hepatitis C Antibodyon 03-01 Hepatitis C Ab Reactive Normal Nonreactive [facility] Comment on above: Order Comment: Reaso n for Exam: Hepatitis Screen RESULTS CALLED TO JOLENE KENNEDY RN ([facility]) 03/01/23 0439 Mandeep Rabago. REPORT READ BACK BY SAME. Result Comment: Non Reactive: < 0.8 Equivocal: >/= 0.8 to < 1.0 Reactive: >/= 1.0 The CDC recommends that a reactive/equivocal HCV antibody result be followed up by the HCV Nucleic Acid Amplification test (983831) Performed By: #### L 3890.6200, L3890.6100, L801.1541, L3890.6300 #### [facility] [address] [place], [address] Hepatitis C,RNA PCR Viral Lo leather whitener 03-01-2023 HCV QT RNA PCR Normal [facility] Comment on above: Result Comment: QNS PER [facility] Performed By: #### L 7000.7000 ####[facility] [address] [place], [address] L509.8000on 03-01-2023 Syphilis Abs Non-Reactive Normal [facility] Comment on above: Performed By: #### L 3890.6005, L509.8000, L501.5200, L500.3400 #### [facility] [address] [place], [address] Laboratory - Chemistry and C hemistry - challengeOrdered By: Kristen Caraballo on 03-01-2023 ALP [Catalytic activity/Vol] 70 U/L [facility] ALT [Catalytic activity/Vol] 20 U/L [facility] Globulin (S) [Mass/Vol] 3.2 g/dL 2.2-4.2 [facility] ALP [Catalytic activity/Vol] 79 U/L [facility] ALT [Catalytic activity/Vol] 23 U/L [facility] Globulin (S) [Mass/Vol] 3.7 g/dL 2.2-4.2 [facility] Magnesium [Mass/Vol] 1.7 mg/dL 1.6-2.6 [facility] Laboratory - Chemistry and C hemistry - challengeOrdered By: Fabio Mcbride on 03-01-2023 CO2 [Moles/Vol] 31.0 mmol/L 21.0-32.0 [facility] Urea nitrogen/Creatinine [Mass ratio] 11.8 mg/mg 05-07 [facility] Laboratory - Drug toxicology Ordered By: Fabio Mcbride on 03-01-2023 Amphetamines Ql (U) Negative <1000 ng/mL [facility] Benzodiazepines Ql (U) Negative < 200 ng/mL [facility] Cannabinoids Screen Ql (U) Negative < 50 ng/mL [facility] Cocaine Ql (U) Positive < 300 ng/mL [facility] Opiates Ql (U) Negative < 300 ng/mL [facility] Laboratory - Hematology and Cell countsOrdered By: Fabio Mcbride on 03-01-2023 Erythrocyte distribution width (RBC) [Entitic vol] 43.7 fL 35.1-43.9 [facility] Erythrocyte distribution width (RBC) [Ratio] 13.4 % 11.6-14.6 [facility] Immature granulocytes/100 WBC (Bld) 0.300 % 0.0-0.9 [facility] Comment on above: IG% - Immature Granu locytes (promyelocytes, myelocytes and metamyelocytes) > 1% indicates that a LEFT SHIFT is Present. MCH (RBC) [Entitic mass] 28.6 pg 27.0-32.0 [facility] Nucleated RBC/100 WBC (Bld) [Ratio] 0 % 0-5 [facility] Liver Profileon 03-01-2023 Albumin [Mass/Vol] 3.5 g/dL Normal 3.2-5.0 [facility] Comment on above: Order Comment: Comme nts: may add to ED labs Performed By: #### L 3890.6005, L509.8000, L501.5200, L500.3400 #### [facility] [address] [place], [address] ALK P 79 U/L Normal 45-117 [facility] Comment on above: Order Comment: Comme nts: may add to ED labs Performed By: #### L 3890.6005, L509.8000, L501.5200, L500.3400 #### [facility] [address] [place], [address] ALT [Catalytic activity/Vol] 23 U/L Normal 13-56 [facility] Comment on above: Order Comment: Comme nts: may add to ED labs Performed By: #### L 3890.6005, L509.8000, L501.5200, L500.3400 #### [facility] [address] [place], [address] AST [Catalytic activity/Vol] 17 U/L Normal 15-37 [facility] Comment on above: Order Comment: Commjohn nts: may add to ED labs Performed By: #### L 3890.6005, L509.8000, L501.5200, L500.3400 #### [facility] [address] [place], [address] Bilirubin [Mass/Vol] 0.70 mg/dL Normal 0.20-1.00 [facility] Comment on above: Order Comment: Comme nts: may add to ED labs Result Comment: For patients on eltrombopag therapy, use of Dimension [place] TBIL is not recommended. Performed By: #### L 3890.6005, L509.8000, L501.5200, L500.3400 #### [facility] [address] [place], [address] Bilirubin.direct [Mass/Vol] 0.18 mg/dL Normal 0.00-0.30 [facility] Comment on above: Order Comment: Comme nts: may add to ED labs Performed By: #### L 3890.6005, L509.8000, L501.5200, L500.3400 #### [facility] [address] [place], [address] Globulin (S) [Mass/Vol] 3.7 g/dL Normal 2.2-4.2 [facility] Comment on above: Order Comment: Comme nts: may add to ED labs Performed By: #### L 3890.6005, L509.8000, L501.5200, L500.3400 #### [facility] [address] [place], [address] T PROT 7.2 g/dL Normal 6.4-8.2 [facility] Comment on above: Order Comment: Comme nts: may add to ED labs Performed By: #### L 3890.6005, L509.8000, L501.5200, L500.3400 #### [facility] [address] [place], [address] MCHC Auto (RBC) [Mass/Vol]Or dered By: Fabio Mcbride on 03-01-2023 MCHC (RBC) [Mass/Vol] 31.9 g/dL 32-36 [facility] Magnesiumon 03-01-2023 Magnesium [Mass/Vol] 1.7 mg/dL Normal 1.6-2.6 [facility] Comment on above: Order Comment: Comme nts: may add to ED labs Performed By: #### L 3890.6005, L509.8000, L501.5200, L500.3400 #### [facility] [address] [place], [address] No Panel InformationOrdered By: Fabio Mcbride on 03-01-2023 Estimated Creatinine Clearance Calc 65.12 ml/min [facility] Estimated GFR (MDRD) Amer 82 mL/min >60 [facility] Comment on above: GFR Calc Estimated GFR (MDRD) Non-Af Amer 67 mL/min >60 [facility] Comment on above: Non- GFR Calc Ethyl Alcohol Level < 3.0 mg/dL [facility] Comment on above: The serum:whole bloo d ethanol ratio is approximately 1.14and varies slightly with hematocrit. Medical Alcohol reference interval and critical value innon-tolerant individuals; 50 - 100 Impairment 100 Intoxication 100 - 250 Severe Poisoning 250 - 400 Deep/possible fatal coma MDMA (Ecstasy) Screen Positive < 500 ng/mL [facility] Urine Barbiturates Screen Negative < 200 ng/mL [facility] Urine Drug Screen Comment [facility] Comment on above: CONFIRMATORY TESTING FOR ALL [...] Urine Methadone Screen Negative < 300 ng/mL [facility] No Panel InformationOrdered By: Kristen Caraballo on 03-01-2023 Hepatitis B Surface Antigen Non-Reactive Nonreactive [facility] Comment on above: Previous reported re sult: Nonreactive Edited by: PAO on 03/01/23:0615 AMENDED REPORT 03/01/23614 HEPB Surface Ag previously reported as: Nonreactive Hepatitis C Antibody Reactive Nonreactive [facility] Comment on above: Previous reported re sult: Preliminary Reactive Edited by: JOVANNA on 03/01/23:0616 Non Reactive: < 0.8 Equivocal: >/= 0.8 to < 1.0 Reactive: >/= 1.0The [facility] recommends that a reactive/equivocal HCV antibody result be followed up by the HCV Nucleic Acid Amplificationtest (818846) Miscellaneous Test See comment [facility] Comment on above: TEST RESULT LIMITSHC V RNA Diagnosis, FRED HCV RNA, Quantitation HCV Not Detected IU/mL No evidence of active HCV infection.Test Information: The quantitative range of this assay is 15 IU/mL to 100 million IU/mL. TESTING PERFORMED AT [facility]. ORIGINAL REPORT ON FILE IN LAB CONTAINS ADDITIONAL TEST SITE INFORMATION. Platelets bldOrdered By: Seymour Mcbride on 03-01-2023 Platelets (Bld) [#/Vol] 321 10*3/uL 150-450 [facility] ,Serum,hCG Quali.on 03-01-2023 HCG, SERUM QUAL Negative Normal [facility] Comment on above: Performed By: #### L 700.6800, L505.5000, L500.2500, L100.0100, L501.9100 ####[facility] [address] [place], [address] Serum Treponema species anti body detectionOrdered By: Kristen Caraballo on 03-01-2023 Treponema sp Ab Ql (S) Non-Reactive [facility] Serum hepatitis B virus surf adeline antibody IgG detectionOrdered By: Kristen Caraballo on 03-01-2023 HBV surface IgG Ql (S) Reactive [facility] Comment on above: Non Reactive: Incons istent with immunity less than <10 mIU/mL Reactive: Consistent with immunity greater than or equal to 10 mIU/mL Serum or plasma albumin alice urement (mass/volume)Ordered By: Kristen Caraballo on 03-01-2023 Albumin [Mass/Vol] 2.9 g/dL 3.2-5.0 [facility] Albumin [Mass/Vol] 3.5 g/dL 3.2-5.0 [facility] Serum or plasma albumin/glob ulin mass ratioOrdered By: Kristen Caraballo on 03-01-2023 Albumin/Globulin [Mass ratio] 0.9 {ratio} 0.9-2.4 [facility] Serum or plasma calcium alice urement (mass/volume)Ordered By: Fabio Mcbride on 03-01-2023 Calcium [Mass/Vol] 9.0 mg/dL 8.5-10.1 [facility] Serum or plasma creatinine m easurement (mass/volume)Ordered By: Fabio Mcbride on 03-01-2023 Creatinine [Mass/Vol] 0.93 mg/dL 0.55-1.02 [facility] Comment on above: The validity of the calculated GFR & GFRAA in patients over 70 years has not been determined. Clinical correlation is essential. Serum or plasma urea nitroge n measurement (mass/volume)Ordered By: Fabio Mcbride on 03-01-2023 Urea nitrogen [Mass/Vol] 11 mg/dL 7-18 [facility] Thin prep Papanicolaou smear with manual screeningOrdered By: Kristen Caraballo on 03-01-2023 Thin prep Papanicolaou smear with manual screening 16 U/L 15- [facility] Thin prep Papanicolaou smear with manual screening 17 U/L 15 [facility] Thin prep Papanicolaou smear with manual screeningOrdered By: Fabio Mcbride on 03-01-2023 Thin prep Papanicolaou smear with manual screening 4 5-15 [facility] Urine Drug Screen (VISTA)on 03-01-2023 BARBITIURATES Negative Normal < 200 ng/mL [facility] Comment on above: Performed By: #### L 700.6800, L505.5000, L500.2500, L100.0100, L501.9100 ####[facility] [address] [facility] [address] BENZODIAZIPINE Negative Normal < 200 ng/mL [facility] Comment on above: Performed By: #### L 700.6800, L505.5000, L500.2500, L100.0100, L501.9100 ####[facility] [address] [place] [address] COCAINE Positive Abnormal < 300 ng/mL [facility] Comment on above: Performed By: #### L 700.6800, L505.5000, L500.2500, L100.0100, L501.9100 ####[facility] [address] [place] [address] ECSTACY Positive Abnormal < 500 ng/mL [facility] Comment on above: Performed By: #### L 700.6800, L505.5000, L500.2500, L100.0100, L501.9100 ####[facility] [address] [place] [address] METHADONE Negative Normal < 300 ng/mL [facility] Comment on above: Performed By: #### L 700.6800, L505.5000, L500.2500, L100.0100, L501.9100 ####[facility] [address] [place] [address] OPIATES Negative Normal < 300 ng/mL [facility] Comment on above: Performed By: #### L 700.6800, L505.5000, L500.2500, L100.0100, L501.9100 ####[facility] [address] [place] [address] PCP Negative Normal < 25 ng/mL [facility] Comment on above: Performed By: #### L 700.6800, L505.5000, L500.2500, L100.0100, L501.9100 ####[facility] [address] [place] [address] THC Negative Normal < 50 ng/mL [facility] Comment on above: Performed By: #### L 700.6800, L505.5000, L500.2500, L100.0100, L501.9100 ####[facility] [address] [place], [address] AMPHETAMINES Negative Normal <1000 ng/mL [facility] Comment on above: Performed By: #### L 700.6800, L505.5000, L500.2500, L100.0100, L501.9100 ####[facility] [address] [place], [address] VISTA UDS PH 4 Normal [facility] Comment on above: Performed By: #### L 700.6800, L505.5000, L500.2500, L100.0100, L501.9100 ####[facility] [address] [place], [address] Urine phencyclidine (PCP) de tectionOrdered By: Fabio Mcbride on 03-01-2023 Phencyclidine Ql (U) Negative < 25 ng/mL [facility] Whole blood hemoglobin A1c/t otal hemoglobin ratio (mass fraction)Ordered By: Kristen Caraballo on 03-01-2023 HbA1c (Bld) [Mass fraction] 5.3 % 3.8-5.6 [facility] Comment on above: Normal < 5.7 % Predi abetic 5.7 - 6.4 % Diabetic >or= 6.5 % Please note range changes. ED NOTEon 12-23-2022 ED NOTE HNO ID: [id number] Author: Stefani Shields RN Service: Emergency Medicine Author Type: Registered Nurse Type: ED Notes Filed: 12/22/2022 10:25 PM Note Text: Pt walked out of department, made comment to [facility] TRACY, I can't wait for those discharge papers pt's gate steady. Dr. Hernandez informed. 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 Patient states she is living in apartment [...] building. Pat (more content not included)... Normal [facility] ED NOTEon 12-22-2022 ED NOTE HNO ID: [id number] Author: Gaby Davidson RN Service: ? Author [...] AANDOx3, vss. Will continue to monitor. Normal [facility] Office Visit (Audiology)on 09-16-2021 Follow-up visit [...] applicable. If no insurance benefits are available, [facility] can provide hearing aid services. 4. Potential [...] any recent ear infections. Patient's preferred language: Brazilian Preferred language of the parent, legal guardian or surrogate decision-maker of this minor or incapacitated patient: Brazilian No overt signs of domestic violence/neglect/abuse. No referral made to Business Operations Consultant. Pain not interfering with optimal level of [...] applicable. If no insurance benefits are available, [facility] can provide hearing aid services. 4. Potential study candidate. She consented to being contacted to learn more and for further testing. Time: [id number] Signatures Electronically signed by : Vahe Azul [facility]; Sep 16 2021 3:41PM EST (Author) Normal [facility] ED NOTEon 09-11-2021 ED NOTE HNO ID: [id number] Author: Ines Cevallos RN Service: Emergency Medicine Author Type: Registered Nurse Type: ED Notes Filed: 09/11/2021 1:30 AM Note Text: Dc instr to fu w pmd, return prn. Verb und, agreeable to plan. Patient is AANDO, skin wdp, resps unlabored, speech clear. Cheerful and interactive. Ambulates with steady upright gait Normal [facility] ED NOTE HNO ID: [id number] Author: Sarah Rangel RN Service: Emergency Medicine [...] anything else to help you? No Normal [facility] ED NOTE HNO ID: [id number] Author: Ines Cevallos RN Service: Emergency Medicine Author Type: Registered Nurse Type: ED Notes Filed: 09/11/2021 12:57 AM Note Text: Patient states there is something in my back and it's been going on for a month. When I look in the mirror, I can see it moving around. patient states there is no pain except when it's moving around. Normal [facility] ED PROV NOTEon 09-11-2021 ED PROV NOTE HNO ID: [id number] Author: Ramya Hull MD Service: Emergency Medicine [...] soft. Tenderness: (more content not included)... Normal [facility] DISCHARGE SUMMARYon 02-16-20 DISCHARGE SUMMARY NAME: KHAI HEDRICK R: [id number] DATE: 01/13/2017DISCHARGE DATE: 01/15/2017The patient was discharged from the service of Dr. Perez, for whom this dictationis being presented on 01/15/2017.DISCHARGE MEDICATIONS: None.LABORATORY VALUES: CBC within normal limits. INR 0.95. General biochemical screenwithin normal limits. Urine toxicology screen positive for opiates. Breathalyzer0.HOSPITAL COURSE: This patient presented to the [facility] with a history of the useof heroin from age of 45, injecting up to 1.5 g intravenously daily, having Xanax 3mg orally once a week to once a month. Smoking cigarettes to a half pack daily anddenying prior chemical dependency treatment. While on the [facility], Kamla wasallowed nicotine replacement therapy and tapering doses of tramadol andbuprenorphine and p.r.n. doses of phenobarbital. She participated in groupactivMeiaoju, underwent a chemical dependency assessment and signed a certificate ofrelease and left the [facility] against medical advice.FINAL DIAGNOSES:1. Opiate use disorder, severe.2. Benzodiazepine use disorder, moderate.3. Tobacco use disorder, severe.4. History of hypertension.5. History of fibromyalgia.6. History of treated iron-deficiency anemia. IVÁN PEREZ MDDICTATED BY: LORENA BURTON/PERLA/[id number]: 02/15/2017 12:27:02 E/S: Nba Perez MD02/22/17 1253Signature on [facility] PT NAME: POOL HEDRICK#: [id number] [place] [address] ACCT: [id number]: 72DISCHARGE SUMMARY Normal [facility] PHENOBARBon 01-15-2017 PHENOBARB 5.5 ug/mL Low 15-40 [facility] Comment on above: Order Comment: CONSE RVATION Performed By: #### L 600.42257 ####Test performed at: [place] [address] Nasreen 01-13-2017 Alanine aminotransferase (ALT) 19 U/L Normal 13-61 [facility] Comment on above: Order Comment: CONSE RVATION Performed By: #### L 500.76155, L500.27123, L500.65480, L500.04249, L500.38403 ####Test performed at: [place] [address] Laura 01-13-2017 Aspartate aminotransferase (AST) 16 U/L Normal 15-37 [facility] Comment on above: Order Comment: CONSE RVATION Performed By: #### L 500.15655, L500.33140, L500.02557, L500.61083, L500.16186 ####Test performed at: [place] [id number] BASIC MET PANELon 01-13-2017 Anion gap 11 mmol/L Normal 6-18 [facility] Comment on above: Order Comment: CONSE RVATION Performed By: #### L 500.75790, L500.49020, L500.85777, L500.39313, L500.15060 ####Test performed at: [place] [address] Calcium 9.0 mg/dL Normal 8.5-10.1 [facility] Comment on above: Order Comment: CONSE RVATION Performed By: #### L 500.85624, L500.55894, L500.24069, L500.61003, L500.09436 ####Test performed at: [place] [address] Chloride 107 mmol/L Normal 98-107 [facility] Comment on above: Order Comment: CONSE RVATION Performed By: #### L 500.34256, L500.51129, L500.63766, L500.97223, L500.04119 ####Test performed at: [place] [address] CO2 27 mmol/L Normal 21-32 [facility] Comment on above: Order Comment: CONSE RVATION Performed By: #### L 500.27874, L500.76349, L500.57510, L500.45648, L500.34505 ####Test performed at: [place] [id number] Creatinine 0.882 mg/dL Normal 0.550-1.020 [facility] Comment on above: Order Comment: CONSE RVATION Performed By: #### L 500.32523, L500.37877, L500.34780, L500.71486, L500.00996 ####Test performed at: [place] [address] Glucose mass conc 100 mg/dL Normal 74-106 [facility] Comment on above: Order Comment: CONSE RVATION Performed By: #### L 500.77107, L500.04409, L500.77995, L500.41831, L500.10617 ####Test performed at: [place] [address] OSM 290 mosm/kg Normal 270-300 [facility] Comment on above: Order Comment: CONSE RVATION Performed By: #### L 500.21628, L500.16650, L500.11655, L500.67108, L500.00446 ####Test performed at: [place] [address] Potassium molar conc 4.1 mmol/L Normal 3.5-5.1 [facility] Comment on above: Order Comment: CONSE RVATION Performed By: #### L 500.38715, L500.77622, L500.05319, L500.66785, L500.18262 ####Test performed at: [place] [address] Sodium 141 mmol/L Normal 136-145 [facility] Comment on above: Order Comment: CONSE RVATION Performed By: #### L 500.73351, L500.21479, L500.93608, L500.05397, L500.26232 ####Test performed at: [place] [address] Urea nitrogen 8 mg/dL Normal 7-18 [facility] Comment on above: Order Comment: CONSE RVATION Performed By: #### L 500.84020, L500.48322, L500.55933, L500.99390, L500.49709 ####Test performed at: [place] [address] CBCon 01-13-2017 Erythrocyte distribution width Auto Ratio (RBC) 14.3 % Normal 11.5-14.5 [facility] Comment on above: Order Comment: CONSE RVATION Performed By: #### L 200.78877 ####Test performed at: [place] [address] Erythrocytes (RBC) 0.000 10*6/uL Normal 0-0.012 [facility] Comment on above: Order Comment: CONSE RVATION Performed By: #### L 200.59517 ####Test performed at: [place] [address] Erythrocytes (RBC) 4.70 10*6/uL Normal 3.5-5.5 [facility] Comment on above: Order Comment: CONSE RVATION Performed By: #### L 200.38334 ####Test performed at: [address] [address] Hematocrit (HCT) 38.2 % Normal 36.0-48.0 [facility] Comment on above: Order Comment: CONSE RVATION Performed By: #### L 200.16200 ####Test performed at: [address] [address] Hemoglobin mass conc (Bld) 12.7 g/dL Normal 12.0-15.0 [facility] Comment on above: Order Comment: CONSE RVATION Performed By: #### L 200.26856 ####Test performed at: [place] [address] MCH 27.0 pg Normal 25.4-34.6 [facility] Comment on above: Order Comment: CONSE RVATION Performed By: #### L 200.21159 ####Test performed at: [address] [address] MCHC mass conc (RBC) 33.2 g/dL Normal 31.5-36.5 [facility] Comment on above: Order Comment: CONSE RVATION Performed By: #### L 200.05464 ####Test performed at: [address] [address] MCV 81.3 fL Normal 79.0-98.0 [facility] Comment on above: Order Comment: CONSE RVATION Performed By: #### L 200.69071 ####Test performed at: [address] [address] NRBC % 0.0 /100 WBC Normal 0-0.2 [facility] Comment on above: Order Comment: CONSE RVATION Performed By: #### L 200.03841 ####Test performed at: [address] [address] Platelet mean volume (PMV) 9.3 fL Normal 8.7-12.4 [facility] Comment on above: Order Comment: CONSE RVATION Performed By: #### L 200.66571 ####Test performed at: [address] [address] Platelets 307 10*3/uL Normal 140-440 [facility] Comment on above: Order Comment: CONSE RVATION Performed By: #### L 200.55560 ####Test performed at: [address] [address] WBC (Leukocytes) 4.3 10*3/uL Normal 3.9-11.0 [facility] Comment on above: Order Comment: CONSE RVATION Performed By: #### L 200.69639 ####Test performed at: [place] [address] EST. CREAT CLRon 01-13-2017 Creatinine 123.998 ML/MIN Normal [facility] Comment on above: Order Comment: CONSE RVATION Result Comment: This result is an ESTIMATED blood creatinine clearance valuewhich is derived from the patient age, sex, weight, andprevious blood creatinine result. Performed By: #### L 500.61916, L500.98726, L500.37687, L500.08361, L500.90662 ####Test performed at: [place] [address] GFR ESTIMATEon 01-13-2017 IF AMER > 60 Normal > 60 [facility] Comment on above: Order Comment: CONSE RVATION Result Comment: eGFR (Estimated GFR) Units of measure:mL/min/1.73 meters sq.*CALCULATION REVISED 05/07/2015;IDMS-traceable MDRD equationeGFR is derived from the reexpressed MDRD Study equationusing the following parameters: serum creatinine, age,gender and race. An eGFR<60 mL/min/1.73m2 for >3 monthsis consistent with chronic kidney disease. Refer to KDOQIguidelines for clinical interpretation. Performed By: #### L 500.70099, L500.71707, L500.78893, L500.50348, L500.42833 ####Test performed at: [place] [address] IF non-AFR AMER > 60 Normal > 60 [facility] Comment on above: Order Comment: CONSE RVATION Performed By: #### L 500.20151, L500.15265, L500.96057, L500.77075, L500.71487 ####Test performed at: [place] [address] LIMIT UR TOXon 01-13-2017 UR AMPH Negative Normal Negative [facility] Comment on above: Order Comment: CONSE RVATION Result Comment: CUTO JS=9825 Performed By: #### L 600.00754 ####Test performed at: [address] [address] UR VU Negative Normal Negative [facility] Comment on above: Order Comment: CONSE RVATION Result Comment: CUTO IJ=231 Performed By: #### L 600.30039 ####Test performed at: [place] [id number] UR TONG Negative Normal Negative [facility] Comment on above: Order Comment: CONSE RVATION Result Comment: CUTO HA=155 Performed By: #### L 600.45338 ####Test performed at: [place] [address] UR LISA/THC Negative Normal Negative [facility] Comment on above: Order Comment: CONSE RVATION Result Comment: CUTO FF=50 Performed By: #### L 600.10684 ####Test performed at: [place] [id number] UR CHRISTOPHER Negative Normal Negative [facility] Comment on above: Order Comment: CONSE RVATION Result Comment: CUTO GQ=163 Performed By: #### L 600.50559 ####Test performed at: [address] [address] UR ECSTASY Negative Normal Negative [facility] Comment on above: Order Comment: CONSE RVATION Result Comment: CUTO WC=250 Performed By: #### L 600.26154 ####Test performed at: [address] [address] UR METH Negative Normal Negative [facility] Comment on above: Order Comment: CONSE RVATION Result Comment: CUTO SO=250 Performed By: #### L 600.91144 ####Test performed at: [address] [address] UR OPIAT Positive Invalid Interpretation Code Negative [facility] Comment on above: Order Comment: CONSE RVATION Result Comment: CUTO OW=957 Performed By: #### L 600.02087 ####Test performed at: [place] [address] UR OXYCOCONE Negative Normal Negative [facility] Comment on above: Order Comment: CONSE RVATION Result Comment: CUTO KH=655 Performed By: #### L 600.10077 ####Test performed at: [place] [address] UR PCP Negative Normal Negative [facility] Comment on above: Order Comment: CONSE RVATION Result Comment: CUTO FF=25 Performed By: #### L 600.40615 ####Test performed at: [place] [address] PH TOX 6.0 Normal 5.0-8.0 [facility] Comment on above: Order Comment: CONSE RVATION Performed By: #### L 600.38066 ####Test performed at: [place] [address] TOX COMMENT *PLEASE NOTE: Normal [facility] Comment on above: Order Comment: CONSE RVATION Result Comment: UNCO NFIRMED Toxicology results. For MEDICAL purposes only. Performed By: #### L 600.28141 ####Test performed at: [place] [address] PROTIMEon 01-13-2017 INR Coag RelTime (PPP) 0.95 {INR} Normal 0.00-1.20 [facility] Comment on above: Order Comment: CONSE RVATIONList patient's anticoagulants for PT: NONE SPECIFIED Result Comment: Carlos mmended therapeutic range is an INR of 2.0-3.0 exceptfor prevention of recurrent acute ME and mechanicalprosthetic heart valve where an INR of 2.5-3.5 isrecommended. Performed By: #### L [id number] ####Test performed at: [place] [id number] PT SEC 10.1 seconds Normal 9.7-11.5 [facility] Comment on above: Order Comment: CONSE RVATIONList patient's anticoagulants for PT: NONE SPECIFIED Performed By: #### L [id number] ####Test performed at: [place] [address] UR BUPREN/NORBUon 01-13-2017 UR BUPREN/NORBU Negative Normal Negative [facility] Comment on above: Order Comment: CONSE RVATION Result Comment: CUTO FF=10 Performed By: #### L [id number] ####Test performed at: [place] [address] UR HCG QUALon 01-13-2017 UR HCG QUAL Negative Normal [facility] Comment on above: Order Comment: CONSE RVATION Performed By: #### L [id number] ####Test performed at: [place] [address] Vital Signs Date Time Vital Sign Value Performing Clinician Facility 10-18-2024 15:05-0400 Diastolic blood pressure 73 mm[Hg] Amanda Canela MD Work Phone: [facility] 10-18-2024 15:05-0400 Heart rate 77 /min Amanda Canela MD Work Phone: [facility] 10-18-2024 15:05-0400 SaO2% (BldA) [Mass fraction] 98 % Amanda Canela MD Work Phone: [facility] 10-18-2024 15:05-0400 Systolic blood pressure 105 mm[Hg] Amanda Canela MD Work Phone: [facility] 07-28-2024 12:15-0500 Body height 167.6 cm Ramya Guan CNP Work Phone: [facility] 07-28-2024 12:15-0500 Body mass index (BMI) [Ratio] 27.76 kg/m2 Ramya Guan CNP Work Phone: [facility] 07-28-2024 12:15-0500 Body temperature 97.39 [degF] Ramya Segovia APRN - MARKETING OUTREACH COORDINATOR Work Phone: [facility] 07-28-2024 12:15-0500 Body weight 78.02 kg Ramya Segovia APRN - MARKETING OUTREACH COORDINATOR Work Phone: [facility] 07-28-2024 12:15-0500 Diastolic blood pressure 72 mm[Hg] Ramya Segovia APRN - MARKETING OUTREACH COORDINATOR Work Phone: [facility] 07-28-2024 12:15-0500 Heart rate 86 /min Ramya Segovia APRN - MARKETING OUTREACH COORDINATOR Work Phone: [facility] 07-28-2024 12:15-0500 SaO2% (BldA) [Mass fraction] 98 % Ramya Segovia APRN - MARKETING OUTREACH COORDINATOR Work Phone: [facility] 07-28-2024 12:15-0500 Systolic blood pressure 116 mm[Hg] Ramya Segovia APRN - MARKETING OUTREACH COORDINATOR Work Phone: [facility] 03-28-2024 13:50-0400 Body height 167.6 cm Roseline Thakkar DO Work Phone: [facility] 03-28-2024 13:50-0400 Body mass index (BMI) [Ratio] 28.73 kg/m2 Roseline Thakkar DO Work Phone: [facility] 03-28-2024 13:50-0400 Body temperature 97 [degF] Roseline Thakkar DO Work Phone: [facility] 03-28-2024 13:50-0400 Body weight 80.74 kg Roseline Thakkar DO Work Phone: [facility] 03-28-2024 13:50-0400 Diastolic blood pressure 66 mm[Hg] Roseline Thakkar DO Work Phone: [facility] 03-28-2024 13:50-0400 Heart rate 64 /min Roseline Thorneugh DO Work Phone: [facility] 03-28-2024 13:50-0400 SaO2% (BldA) [Mass fraction] 95 % Roseline Ariane DO Work Phone: [facility] 03-28-2024 13:50-0400 Systolic blood pressure 100 mm[Hg] Roseline Ariane DO Work Phone: [facility] 01-11-2024 15:12-0400 Body height 167.6 cm Jennifer Falconon PA-C Work Phone: [facility] 01-11-2024 15:12-0400 Body mass index (BMI) [Ratio] 28.89 kg/m2 Jennifer Rocha PA-C Work Phone: [facility] 01-11-2024 15:12-0400 Body weight 81.19 kg Jennifer Rocha PA-C Work Phone: [facility] 01-11-2024 15:12-0400 Diastolic blood pressure 65 mm[Hg] Jennifer Rocha PA-C Work Phone: [facility] 01-11-2024 15:12-0400 Heart rate 64 /min Jennifer Rocha PA-C Work Phone: [facility] 01-11-2024 15:12-0400 SaO2% (BldA) [Mass fraction] 96 % Jennifer Rocha PA-C Work Phone: [facility] 01-11-2024 15:12-0400 Systolic blood pressure 95 mm[Hg] Jennifer Rocha PA-C Work Phone: [facility] 11-12-2023 11:39-0400 Body height 167.6 cm Roseline Ariane DO Work Phone: [facility] 11-12-2023 11:39-0400 Body mass index (BMI) [Ratio] 29.7 kg/m2 Roseline Ariane DO Work Phone: [facility] 11-12-2023 11:39-0400 Body weight 83.46 kg Roseline Thakkar DO Work Phone: [facility] 11-12-2023 11:39-0400 Diastolic blood pressure 79 mm[Hg] Roseline Thakkar DO Work Phone: [facility] 11-12-2023 11:39-0400 Heart rate 69 /min Roseline Thakkar DO Work Phone: [facility] 11-12-2023 11:39-0400 SaO2% (BldA) [Mass fraction] 96 % Roseline Thakkar DO Work Phone: [facility] 11-12-2023 11:39-0400 Systolic blood pressure 120 mm[Hg] Roseline Thakkar DO Work Phone: [facility] 06-25-2023 16:46-0500 Body temperature 97.81 [degF] Ashlee Callow DIRECTOR OF ENTERPRISE STRATEGY.MARKETING OUTREACH COORDINATOR Work Phone: [facility] 06-25-2023 16:46-0500 Body weight 77.11 kg Ashlee Callow DIRECTOR OF ENTERPRISE STRATEGY.MARKETING OUTREACH COORDINATOR Work Phone: [facility] 06-25-2023 16:46-0500 Diastolic blood pressure 70 mm[Hg] Ashlee Callow DIRECTOR OF ENTERPRISE STRATEGY.MARKETING OUTREACH COORDINATOR Work Phone: [facility] 06-25-2023 16:46-0500 Heart rate 75 /min Ashlee Callow DIRECTOR OF ENTERPRISE STRATEGY.MARKETING OUTREACH COORDINATOR Work Phone: [facility] 06-25-2023 16:46-0500 Respiratory rate 20 /min Ashlee Callow DIRECTOR OF ENTERPRISE STRATEGY.MARKETING OUTREACH COORDINATOR Work Phone: [facility] 06-25-2023 16:46-0500 SaO2% (BldA) [Mass fraction] 98 % Ashlee Callow DIRECTOR OF ENTERPRISE STRATEGY.MARKETING OUTREACH COORDINATOR Work Phone: [facility] 06-25-2023 16:46-0500 Systolic blood pressure 109 mm[Hg] Ashlee Callow DIRECTOR OF ENTERPRISE STRATEGY.MARKETING OUTREACH COORDINATOR Work Phone: [facility] 05-12-2023 15:46-0400 Body temperature 97.39 [degF] Jen Gore DIRECTOR OF ENTERPRISE STRATEGY.MARKETING OUTREACH COORDINATOR Work Phone: [facility] 05-12-2023 15:46-0400 Body weight 71.12 kg Jen Gore DIRECTOR OF ENTERPRISE STRATEGY.MARKETING OUTREACH COORDINATOR Work Phone: [facility] 05-12-2023 15:46-0400 Diastolic blood pressure 74 mm[Hg] Jen Gore DIRECTOR OF ENTERPRISE STRATEGY.MARKETING OUTREACH COORDINATOR Work Phone: [facility] 05-12-2023 15:46-0400 Heart rate 74 /min Jen Gore DIRECTOR OF ENTERPRISE STRATEGY.MARKETING OUTREACH COORDINATOR Work Phone: [facility] 05-12-2023 15:46-0400 Respiratory rate 21 /min Jen Gore DIRECTOR OF ENTERPRISE STRATEGY.MARKETING OUTREACH COORDINATOR Work Phone: [facility] 05-12-2023 15:46-0400 SaO2% (BldA) [Mass fraction] 99 % Jen Gore DIRECTOR OF ENTERPRISE STRATEGY.MARKETING OUTREACH COORDINATOR Work Phone: [facility] 05-12-2023 15:46-0400 Systolic blood pressure 90 mm[Hg] Jen Gore DIRECTOR OF ENTERPRISE STRATEGY.MARKETING OUTREACH COORDINATOR Work Phone: [facility] 03-03-2023 11:00-0400 Body temperature 97.7 [degF] Dr. Fabio Mcbride Work Phone: [facility] 03-03-2023 11:00-0400 Diastolic blood pressure 71 mm[Hg] Dr. Fabio Mcbride Work Phone: [facility] 03-03-2023 11:00-0400 Heart rate 74 /min Dr. Fabio Mcbride Work Phone: [facility] 03-03-2023 11:00-0400 Respiratory rate 18 /min Dr. Fabio Mcbride Work Phone: [facility] 03-03-2023 11:00-0400 SaO2% (BldA) [Mass fraction] 100 % Dr. Fabio Mcbride Work Phone: [facility] 03-03-2023 11:00-0400 Systolic blood pressure 116 mm[Hg] Dr. Fabio Mcbride Work Phone: [facility] 03-01-2023 13:37-0400 Body height 167.[address] Fabio Mcbride Work Phone: [facility] 03-01-2023 13:37-0400 Body weight 67.[address] Fabio Mcbride Work Phone: [facility] 03-01-2023 02:58-0400 Body mass index (BMI) [Ratio] 23.8 kg/m2 Dr. Fabio Mcbride Work Phone: [facility] 03-01-2023 01:51-0400 Body temperature 97.9 [degF] [facility] 03-01-2023 01:51-0400 Diastolic blood pressure 86 mm[Hg] [facility] 03-01-2023 01:51-0400 Heart rate 80 /min [facility] 03-01-2023 01:51-0400 Respiratory rate 16 /min [facility] 03-01-2023 01:51-0400 SaO2% (BldA) [Mass fraction] 98 % [facility] 03-01-2023 01:51-0400 Systolic blood pressure 117 mm[Hg] [facility] 03-01-2023 00:55-0400 Body height 165.1 cm [facility] 03-01-2023 00:55-0400 Body mass index (BMI) [Ratio] 27.9 kg/m2 [facility] 03-01-2023 00:55-0400 Body weight 76.2 kg [facility] Encounters Encounter Date Encounter Type Care Provider Facility Start: 11-28-2024 End: 12-04-2024 ambulatory Em Jennings Clinical Communication Start: 11-28-2024 End: 12-04-2024 Patient encounter procedure Em Jennings Clinical Communication Start: 11-22-2024 End: 11-23-2024 Refill Roseline Thakkar DO Work Phone: [facility] Comment on above: Anemia, unspecified type Start: 10-18-2024 End: 10-18-2024 Office outpatient visit 25 minutes Amanda Canela MD Work Phone: [facility] Comment on above: Acute bilateral knee pain (Primary Dx); Family history of rheumatoid arthritis; Varicose veins of both lower extremities with pain Start: 10-18-2024 End: 10-18-2024 ambulatory ROSELINE THAKKAR [facility] Start: 09-04-2024 End: 09-04-2024 ambulatory Anna Gallardo RN [facility] Start: 09-04-2024 End: 09-04-2024 Patient encounter procedure Anna Gallardo RN [facility] Start: 07-31-2024 End: 07-31-2024 Emergency department patient visit SHIRA Magalys TERESO Facility:[facility] Start: 07-28-2024 End: 07-28-2024 ambulatory ROSELINE ARIANE [facility] Start: 07-28-2024 End: 07-28-2024 Office outpatient visit 10 minutes Ramya Segovia DIRECTOR OF ENTERPRISE STRATEGY - MARKETING OUTREACH COORDINATOR Work Phone: [facility] Comment on above: Seborrheic dermatiti s of scalp Start: 07-28-2024 End: 07-28-2024 Office outpatient visit 15 minutes Ramya Segovia DIRECTOR OF ENTERPRISE STRATEGY - MARKETING OUTREACH COORDINATOR Work Phone: [facility] Comment on above: Seborrheic dermatiti s of scalp Start: 06-23-2024 End: 06-26-2024 Telephone encounter Jennifer Rocha PA-C Work Phone: [facility] Comment on above: Test Scheduling Start: 06-05-2024 End: 06-14-2024 Refill Roseline Ariane DO Work Phone: [facility] Comment on above: Essential (primary) hypertension Med Refill Start: 04-13-2024 End: 04-13-2024 Emergency department patient visit MS. VERN THORNEGH Facility:[id number] Start: 03-28-2024 End: 03-28-2024 Office outpatient visit 25 minutes Roseline Thakkar DO Work Phone: [facility] Comment on above: Bipolar I disorder ( HCC) (Primary Dx); Rash; Dysuria; Gastroesophageal reflux disease without esophagitis Start: 03-28-2024 End: 03-28-2024 ambulatory ROSELINE THAKKAR [facility] Start: 03-15-2024 End: 03-21-2024 ambulatory Roya Carlin RN [facility] Start: 03-15-2024 End: 03-21-2024 Patient encounter procedure Roya Carlin RN [facility] Start: 03-03-2024 End: 03-03-2024 Emergency department patient visit ANNY MARK MD Facility:[id number] Start: 01-11-2024 End: 01-11-2024 ambulatory JENNIFER ROCHA [facility] Start: 01-11-2024 End: 01-11-2024 Office outpatient visit 10 minutes Jennifer Rocha PA-C Work Phone: [facility] Comment on above: Lymphadenopathy, cer vical (Primary Dx) Start: 01-11-2024 End: 01-11-2024 Office outpatient visit 15 minutes Jennifer Rocha PA-C Work Phone: [facility] Comment on above: Lymphadenopathy, cer vical (Primary Dx) Start: 12-07-2023 Telephone encounter Roseline alberto DO Work Phone: [facility] Comment on above: palpable lymph nodes Start: 11-12-2023 End: 11-12-2023 Office outpatient new 45 minutes Roseline Thakkar DO Work Phone: [facility] Comment on above: Scalp lesion (Primar y Dx); Essential (primary) hypertension; Pure hypercholesterolemia; Encounter for screening mammogram for malignant neoplasm of breast; Elevated serum glucose; Mild intermittent asthma without complication; Gastroesophageal reflux disease without esophagitis; Rash; Anemia, unspecified type Start: 09-23-2023 Telephone encounter Shira cox MD Work Phone: [facility] Comment on above: Med Refill Start: 09-17-2023 End: 09-17-2023 Emergency department patient visit CARLTON SOTO MD Facility:[id number] Start: 09-16-2023 ambulatory Jennyfermarcial Giron RN [facility] Start: 09-16-2023 Patient encounter procedure Jennyfer Jon RN [facility] Start: 07-07-2023 Refill Shira moody MD Work Phone: [facility] Comment on above: Essential (primary) hypertension Start: 06-25-2023 End: 06-25-2023 [facility] Facility:[facility] Start: 06-25-2023 End: 06-25-2023 Patient encounter procedure Ashleejamil Iyer DIRECTOR OF ENTERPRISE STRATEGY.MARKETING OUTREACH COORDINATOR Work Phone: [facility] Comment on above: Itching (Primary Dx) Start: 05-12-2023 End: 05-12-2023 [facility] Facility:[facility] Start: 05-12-2023 End: 05-12-2023 Subsequent hospital visit by physician Xr [facility] Work Phone: Radiology Comment on above: Acute cough [R05.1] Start: 05-12-2023 End: 05-12-2023 Patient encounter procedure [facility] DIRECTOR OF ENTERPRISE STRATEGY.MARKETING OUTREACH COORDINATOR Work Phone: [facility] Comment on above: Acute cough (Primary Dx); History of asthma Start: 03-03-2023 Non-patient / Non-visit Dr. Luis Enrique Mcbride Work Phone: [facility] Work Phone: Start: 03-02-2023 Non-patient / Non-visit Dr. Luis Enrique Mcbride Work Phone: [facility] Work Phone: Start: 03-01-2023 End: 03-03-2023 [facility] Start: 03-01-2023 End: 03-03-2023 Evaluation and management of inpatient [facility] Work Phone: Start: 12-22-2022 End: 12-23-2022 Emergency department patient visit MEGHNA LEON EITANJORDI Facility:[facility] Start: 09-16-2022 Don moody MD Work Phone: [facility] Start: 07-24-2022 ambulatory Kalee meadows RN [facility] Start: 07-24-2022 Patient encounter procedure Kalee Patel RN [facility] Start: 07-23-2022 ambulatory Marva Dye RN [facility] Start: 07-23-2022 Patient encounter procedure Marva Dye RN [facility] Start: 09-16-2021 [facility] visit new patient Lilliameri sonam Y Edison Work Phone: [facility] [address] [place] Work Phone: Start: 01-18-2019 Patient encounter procedure Susan Liangjuan [facility] Work Phone: Start: 12-01-2018 Patient encounter procedure Susan Oatesguerojuan [facility] Work Phone: Start: 10-21-2018 [facility] Start: 10-14-2018 Patient encounter procedure Susan Matthieu Facility:[id number] Start: 09-27-2018 Patient encounter procedure Susan Matthieu Facility:[id number] Start: 09-06-2018 [facility] Start: 09-02-2018 Patient encounter procedure Susan Liangi Facility:[id number] Start: 08-05-2018 Patient encounter procedure Kathleen Simmsdavidjay [facility] Start: 07-08-2018 [facility] Start: 05-20-2018 Patient encounter procedure MCKENZIE LOMELI [facility] Start: 04-12-2018 Patient encounter procedure Susan [facility] Work Phone: Start: 09-24-2017 Patient encounter procedure Susan [facility] Work Phone: Start: 09-10-2017 Ambulatory Pro Ellis Facility:[facility] Start: 09-10-2017 Patient encounter procedure Susan Sommers [facility] Work Phone: Start: 07-23-2017 Ambulatory Pro Ellis [facility] Start: 07-23-2017 Patient encounter procedure Susan [facility] Work Phone: Start: 07-09-2017 Ambulatory Pro Ellis Facility:[facility] Start: 07-09-2017 Patient encounter procedure Susan [facility] Work Phone: Start: 01-13-2017 End: 01-15-2017 Evaluation and management of inpatient [facility] Facility:[facility] Start: 01-13-2017 Ambulatory [facility] Facilit y:[facility] Start: 01-05-2017 End: 01-05-2017 Emergency department patient visit [facility] Start: 05-01-2016 End: 05-01-2016 Emergency department patient visit UNKNOWN PROVIDER Facility:[facility] Procedures Date Procedure Procedure Detail Performing Clinician Start: 07-28-2024 Follow-up visit Follow-up ALFREDO SEGOVIA Start: 03-28-2024 Urnls dip stick/tabl et rgnt auto w/o microscopy Roseline Thakkar DO Work Phone: Start: 11-23-2023 Lipid 1996 panel - S arsalan or Plasma Roseline Thakkar DO Work Phone: Start: 05-12-2023 Radiologic exam ches t 2 views Jen Gore APRN.MARKETING OUTREACH COORDINATOR Work Phone: Start: 05-10-2020 Microscopic observat ion [Identifier] in Cervix by Cyto stain Marva Dye RN Start: 08-02-2019 Colonoscopy Shira woods MD Work Phone: Plan of Treatment Date Care Activity Detail Author Start: 12-19-2047 RSV Immunization for Adults (1 - 1-dose 75+ series) RSV Immunization for Adults (1 - 1-dose 75+ series) [facility] Start: 2032 RSV Immunization aged 60 or older (1 - 1-dose 60+ series) RSV Immunization aged 60 or older (1 - 1-dose 60+ series) [facility] Start: 08-02-2029 Screening for malignant neoplasm of colon [facility] Start: 11-22-2028 Lipid panel Lipid Panel [facility] Start: 04-05-2028 HPV Testing HPV Testing [facility] Start: 04-05-2028 Pap Testing Pap Testing [facility] Start: 04-05-2028 Screening for malignant neoplasm of cervix Cervical Cancer Screening [facility] Start: 11-22-2026 Diabetes mellitus screening Diabetes Screening [facility] Start: 05-13-2025 Depression Monitoring Depression Monitoring [facility] Start: 03-19-2025 Influenza vaccination Influenza Vaccine (Season Ended) [facility] Start: 11-22-2024 Diabetes mellitus screening Diabetes Screening [facility] Start: 11-14-2024 End: 11-14-2024 Patient encounter procedure [facility] Start: 10-18-2024 End: 10-18-2025 C reactive protein [Mass/volume] in Serum or Plasma C-reactive protein Lab Routine Acute bilateral knee pain Family history of rheumatoid arthritis Expected: 10/18/2024 (Approximate), Expires: 10/18/2025 [facility] Comment on above: Expected: 10/18/2024 (Approximate), Expi res: 10/18/2025 Start: 10-18-2024 End: 10-18-2025 Erythrocyte sedimentation rate Sedimentation rate, automated Lab Routine Acute bilateral knee pain Family history of rheumatoid arthritis Expected: 10/18/2024 (Approximate), Expires: 10/18/2025 [facility] Comment on above: Expected: 10/18/2024 (Approximate), Expi res: 10/18/2025 Start: 10-18-2024 End: 10-18-2025 Magnesium [Mass/volume] in Serum or Plasma Magnesium Lab Routine Acute bilateral knee pain Expected: 10/18/2024 (Approximate), Expires: 10/18/2025 [facility] Comment on above: Expected: 10/18/2024 (Approximate), Expi res: 10/18/2025 Start: 10-18-2024 End: 10-18-2025 Nuclear Ab [Titer] in Serum by Immunofluorescence ABBIE Lab Routine Acute bilateral knee pain Family history of rheumatoid arthritis Expected: 10/18/2024 (Approximate), Expires: 10/18/2025 [facility] Comment on above: Expected: 10/18/2024 (Approximate), Expi res: 10/18/2025 Start: 10-18-2024 End: 10-18-2025 Renal function 2000 panel - Serum or Plasma Renal function panel Lab Routine Acute bilateral knee pain Expected: 10/18/2024 (Approximate), Expires: 10/18/2025 [facility] Comment on above: Expected: 10/18/2024 (Approximate), Expi res: 10/18/2025 Start: 10-18-2024 End: 10-18-2025 Rheumatoid factor [Units/volume] in Serum or Plasma Rheumatoid factor Lab Routine Acute bilateral knee pain Family history of rheumatoid arthritis Expected: 10/18/2024 (Approximate), Expires: 10/18/2025 [facility] Comment on above: Expected: 10/18/2024 (Approximate), Expi res: 10/18/2025 Start: 10-18-2024 End: 10-18-2025 XR Knee - bilateral 4 Views XR knee 4+ views bilateral Imaging Routine Acute bilateral knee pain Expected: 10/18/2024, Expires: 10/18/2025 [facility] Work Phone: Comment on above: Expected: 10/18/2024, Expires: Start: 07-04-2024 End: 07-04-2024 Patient encounter procedure 07/04/2024 2:00 PM EST Office Visit [facility] [place] [address] [place] [address] Ramya Segovia, DIRECTOR OF ENTERPRISE STRATEGY - MARKETING OUTREACH COORDINATOR [address] [place] [address] [place] [address] [facility] [place] Start: 06-07-2024 Subsequent hospital visit by physician 06/07/2024 1:00 PM EST Hospital Encounter [facility] [place] [facility] [address] [place] [address] Jennifer Rocha PA-C [address] [place] [address] [facility] [place] [facility] Start: 05-13-2024 Depression Monitoring Depression Monitoring [facility] Start: 03-28-2024 End: 03-28-2025 Bacteria identified in Urine by Culture Urine culture Microbiology Routine Dysuria Expected: 03/28/2024 (Approximate), Expires: 03/28/2025 [facility] Work Phone: Comment on above: Expected: 03/28/2024 (Approximate), Expi res: 03/28/2025 Start: 03-28-2024 End: 03-28-2024 Patient encounter procedure 03/28/2024 1:40 PM EDT Office Visit [facility] [address] [place] [id number] Roseline Thakkar DO [address] [place] [address] [facility] Start: 03-19-2024 COVID-19 Vaccine ( season) COVID-19 Vaccine ( season) [facility] Start: 03-19-2024 COVID-19 Vaccine ( season) COVID-19 Vaccine ( season) [facility] Start: 03-19-2024 Influenza vaccination [facility] Start: 02-11-2024 End: 02-11-2024 Patient encounter procedure 02/11/2024 11:20 AM EDT Office Visit [facility] [address] [place], [place] [id number] Roseline Thakkar DO [address] [place] [address] [facility] Start: 01-11-2024 End: 01-10-2025 US Head and neck soft tissue US head neck soft tissue Imaging Routine Lymphadenopathy, cervical Expected: 01/11/2024, Expires: 01/10/2025 [facility] Work Phone: Comment on above: Expected: 01/11/2024, Expires: Start: 12-16-2023 End: 12-16-2023 Patient encounter procedure 12/16/2023 2:40 PM EDT Office Visit [facility] [address] [place] [id number] Roseline Thakkar DO [address] [place] [address] [facility] Start: 11-12-2023 End: 11-11-2024 CBC panel - Blood by Automated count CBC Lab Routine Essential (primary) hypertension Expected: 11/12/2023 (Approximate), Expires: 11/11/2024 [facility] Comment on above: Expected: 11/12/2023 (Approximate), Expi res: 11/11/2024 Start: 11-12-2023 End: 11-11-2024 Comprehensive metabolic 1998 panel - Serum or Plasma Comprehensive metabolic panel Lab Routine Essential (primary) hypertension Expected: 11/12/2023 (Approximate), Expires: 11/11/2024 [facility] Comment on above: Expected: 11/12/2023 (Approximate), Expi res: 11/11/2024 Start: 11-12-2023 End: 01-11-2025 DBT Breast - bilateral screening Bilateral screening mammogram with tomosynthesis Imaging Routine Encounter for screening mammogram for malignant neoplasm of breast Expected: 11/12/2023, Expires: 01/11/2025 [facility] Comment on above: Expected: 11/12/2023, Expires: Start: 11-12-2023 End: 11-11-2024 Hemoglobin A1c measurement Hemoglobin A1c Lab Routine Elevated serum glucose Expected: 11/12/2023 (Approximate), Expires: 11/11/2024 [facility] Work Phone: Comment on above: Expected: 11/12/2023 (Approximate), Expi res: 11/11/2024 Start: 11-12-2023 End: 11-11-2024 Lipid 1996 panel - Serum or Plasma Lipid panel Lab Routine Pure hypercholesterolemia Expected: 11/12/2023 (Approximate), Expires: 11/11/2024 [facility] Comment on above: Expected: 11/12/2023 (Approximate), Expi res: 11/11/2024 Start: 11-12-2023 End: 11-11-2024 Thyrotropin [Units/volume] in Serum or Plasma TSH Lab Routine Essential (primary) hypertension Expected: 11/12/2023 (Approximate), Expires: 11/11/2024 [facility] Comment on above: Expected: 11/12/2023 (Approximate), Expi res: 11/11/2024 Start: 09-29-2023 End: 09-29-2023 Patient encounter procedure 09/29/2023 2:00 PM EDT Office Visit [facility] [address] [place] [phone] Roseline Thakkar DO [address] [place], [place] [id number] [facility] Start: 07-27-2023 End: 07-27-2023 Patient encounter procedure 07/27/2023 11:00 AM EST Office Visit [facility] [address] [place] [phone] Shira Rider MD [address] [place], [place] [id number] [facility] Start: 05-10-2023 Screening for malignant neoplasm of cervix [facility] Start: 03-19-2023 COVID-19 Vaccine ( season) COVID-19 Vaccine ( season) [facility] Start: 03-19-2023 Influenza vaccination Influ[facility] Start: 03-03-2023 Patient discharge [facility] Start: 03-02-2023 End: 03-03-2023 [facility] Start: 03-02-2023 Assessment using assessment scale [facility] Start: 03-02-2023 Provision of activity privileges [facility] Start: 03-01-2023 End: 03-02-2023 [facility] Start: 03-01-2023 Following clinical pathway protocol [facility] Start: 03-01-2023 Assessment of risk of venous thromboembolism [facility] Start: 03-01-2023 Inhalation therapy procedure [facility] Start: 03-01-2023 Introduction of urinary catheter [facility] Start: 03-01-2023 Notification of physician [facility] Start: 03-01-2023 Oxygen therapy [facility] Start: 03-01-2023 Provision of activity privileges [facility] Start: 03-01-2023 Referral to service [facility] Start: 03-01-2023 Vital signs measurements [facility] Start: 03-01-2023 Admission procedure [facility] Start: 03-01-2023 [facility] Start: 03-01-2023 Patient referral to dietitian [facility] Start: 2022 Shingrix Vaccine (1 of 2) Shingrix Vaccine (1 of 2) [facility] Start: 2022 Zoster Vaccines (1 of 2) Zoster Vaccines (1 of 2) [facility] Start: 09-18-2022 Diabetes mellitus screening Diabetes Screening [facility] Start: 07-19-2022 Depression Assessment Depression Assessment [facility] Start: 03-19-2022 Influenza vaccination Influenza Vaccine (#1) [facility] Start: 2017 Cologuard (FIT-DNA) Cologuard (FIT-DNA) [facility] Start: 2017 Colonoscopy Colonoscopy [facility] Start: 2017 Colorectal Cancer Screening Colorectal Cancer Screening [facility] Start: [address] Colonography [facility] Start: 2017 Diabetes Screening Diabetes Screening [facility] Start: 2017 Fecal Occult Blood Fecal Occult Blood [facility] Start: 2017 Lipid 1996 panel - Serum or Plasma Lipid Screening [facility] Start: 2017 Lipid panel Lipid Screening [facility] Start: 2017 Screening for malignant neoplasm of colon [facility] Start: 2017 Sigmoidoscopy Sigmoidoscopy [facility] Start: 2012 Mammography Mammogram Screening [facility] Start: 2012 Screening for malignant neoplasm of breast [facility] Start: 07-20-2012 DTaP/Tdap/Td Vaccines (1 - Tdap) DTaP/Tdap/Td Vaccines (1 - Tdap) [facility] Start: 2002 Screening for malignant neoplasm of cervix HPV/Cotest [facility] Start: 12-19-1991 DTaP/Tdap/Td Vaccines (1 - Tdap) DTaP/Tdap/Td Vaccines (1 - Tdap) [facility] Start: 12-19-1991 Hepatitis A Vaccines (1 of 2 - Risk 2-dose series) Hepatitis A Vaccines (1 of 2 - Risk 2-dose series) [facility] Start: 12-19-1991 Hepatitis B Vaccine (1 of 3 - 19+ 3-dose series) Hepatitis B Vaccine (1 of 3 - 19+ 3-dose series) [facility] Start: 12-19-1991 Hepatitis B Vaccines (1 of 3 - 19+ 3-dose series) Hepatitis B Vaccines (1 of 3 - 19+ 3-dose series) [facility] Start: 12-19-1991 Pneumococcal Vaccine: 50+ Years (1 of 2 - PCV) Pneumococcal Vaccine: 50+ Years (1 of 2 - PCV) [facility] Start: 12-19-1991 Urine microalbumin profile DTaP,Tdap,Td Vaccine (1 - Tdap) [facility] Start: 1990 Anxiety Screening Anxiety Screening [facility] Start: 1990 Depression Screening Depression Screening [facility] Start: 1984 Depresssion Monitoring Depresssion Monitoring [facility] Start: 1978 Pneumococcal vaccination [facility] Start: 1978 Pneumococcal Vaccine: Pediatrics (0 to 5 Years) and At-Risk Patients (6 to 64 Years) (1 of 2 - PCV) Pneumococcal Vaccine: Pediatrics (0 to 5 Years) and At-Risk Patients (6 to 64 Years) (1 of 2 - PCV) [facility] Start: 1973 Hepatitis A Vaccines (1 of 2 - Risk 2-dose series) Hepatitis A Vaccines (1 of 2 - Risk 2-dose series) [facility] Start: 1973 MMR Vaccines (1 of 1 - Standard series) MMR Vaccines (1 of 1 - Standard series) [facility] Start: 06-19-1973 Covid-19 Vaccine (#1) Covid-19 Vaccine (#1) [facility] Start: 1972 Hepatitis B Vaccine (1 of 3 - 3-dose series) Hepatitis B Vaccine (1 of 3 - 3-dose series) [facility] Start: 1972 Hepatitis B Vaccines (1 of 3 - 3-dose series) Hepatitis B Vaccines (1 of 3 - 3-dose series) [facility] Start: 1972 Lipid panel Lipid Panel [facility] Start: 1972 Screening for malignant neoplasm of colon [facility] HIV 1+2 Ab+HIV1 p24 Ag [Presence] in Serum or Plasma by Immunoassay [facility] Patient referral [facility] Work Phone: PCR for Hepatitis C [facility] Treponema sp Ab [Pre sence] in Serum [facility] Immunizations Immunization Date Immunization Notes Care Provider Yvon sharma 05-01-2013 influenza virus vacc ine, unspecified formulation Shira Rider MD Work Phone: [facility] 07-19-2012 tetanus and diphther ia toxoids, not adsorbed, for adult use Jennyfer Jon RN [facility] 07-19-2012 tuberculin skin test ; purified protein derivative solution, intradermal Jennyfer Jon RN [facility] Payers Date Payer Category Payer Medicaid HMO [employer] ODM [id number] 2023 Unknown [id number] 2023 Self-pay [id number] 2022 Unknown [id number] 2022 Medicaid [id number] 2016 Unknown [id number] 2013 Medicaid [id number] 2008 Unknown 1972 Unknown [id number] 1972 Unknown [id number] [id number] 1972 Unknown [id number] [id number] 1972 Unknown [id number] [id number] 1972 Unknown [id number] 2.16.840.1.492813.3.579.2.8 1972 Unknown [id number] 2.16.840.1.202836.3.579.2. 1972 Unknown [id number] 2.16.840.1.642133.3.579.2.8 1972 Unknown [id number] 2.16.840.1.895186.3.579.2.8 1972 Unknown [id number] [id number] 1972 Unknown [id number] [id number] 1972 Unknown [id number] [id number] 1972 Unknown [id number] [id number] Unknown [id number] [id number] Unknown [id number] [id number] Unknown [id number] [id number] Unknown [id number] Social History Date Type Detail Facility Start: 05-12-2023 End: 11-12-2023 Former smoker Former smoker [id number] [address] [place] Work Phone: Start: 03-01-2023 End: 03-01-2023 Tobacco smoking status ILIS Unknown if ever smoked [facility] Start: 03-11-2019 None [facility] Start: 03-11-2019 Spouse/ Signif icant Other [facility] Start: 1970 Sex Assigned At Female [facility] Start: 05-12-2023 [facility] History of tobacco use Pipe Smoker [facility] History of tobacco use Passive smoker [facility] Start: 05-12-2023 End: 02-11-2024 Tobacco use and exposure Smokeless tobacco non-user [facility] Start: 05-12-2023 End: 11-12-2023 Tobacco use panel [facility] Start: 1970 Sex Assigned At Not on file [facility] Start: 01-11-2024 End: 02-11-2024 Tobacco smoking status NHIS Ex-smoker [facility] End: 11-06-2014 History of tobacco use Current smoker [facility] End: 11-06-2014 History of tobacco use Cigarette Smoker [facility] Start: 07-07-2022 End: 11-14-2024 Alcohol intake Current non-drinker of alcohol (finding) [facility] Has the [employer], [employer], or water [employer] threatened to shut off services in your home in past 12Mo No [facility] Do you belong to any clubs or organizations such as sabianist groups, unions, fraternal or athletic groups, or school groups? Yes [facility] Are you now , , , , never or living with a partner? Never [facility] How often to you hav e a drink containing alcohol? Never [facility] How many standard drinks containing alcohol do you have on a typical day? Patient does not drink [facility] How hard is it for y ou to pay for the very basics like food, housing, medical care, and heating Somewhat hard [facility] Do you feel stress - tense, restless, nervous, or anxious, or unable to sleep at night because your mind is troubled all the time - these days [OSQ] To some extent [facility] (I/We) worried wheth er (my/our) food would run out before (I/we) got money to buy more. Sometimes true [facility] Start: 02-16-2022 Sex Female (finding) [facility] NEGATED: Highlighted row - - YH-Kkhykqcex-Asfil Work Phone: Goals Date Patient Goal Desired Activity /State Functional Status Date Assessment Result Facility 03-03-2023 Functional status Ambulates [facility] Work Phone: NEGATED: Highlighted row Functional performance Functional status health issues are not documented Disease VN-Ccgycjjem-Egkhq Work Phone: Mental Status Date Assessment Result Facility 03-03-2023 Cognitive function Voice/Name [facility] Work Phone: NEGATED: Highlighted row Cognitive function [Interpretation] Cognitive status health issues are not documented Disease SF-Jogncveui-Qtdpa Work Phone: Clinical Notes 07-23-2022 to 11-28-2024 Telephone Encounter - Fatimah Cerda LPN - 11/28/2024 4:02 PM EDTTelephone Encounter - Fatimah Cerda LPN - 11/28/2024 4:02 PM EDTTelephone Encounter - Em Thornton RN - 11/28/2024 2:02 PM EDT Note Date & Type Note Facility 11-28-2024 Telephone encounter Note noted [facility] 11-28-2024 Miscellaneous Notes noted S: Patient spoke [...] to urinate (i.e., urgency) Protocols used: Urinary Mzxhkdom-MOELN-ZJ documented in this encounter [facility] 11-28-2024 Telephone encounter Note S: Patient spoke [...] Advised that she could be seen in [facility] up until 7pm. Patient voiced understanding. Advised [...] to urinate (i.e., urgency) Protocols used: Urinary Yswhwsnt-AGBOK-WQ [facility] 10-18-2024 Evaluation + Plan note Associated Problem(s): Varicose veins of both lower extremities [facility] 10-18-2024 History of Present illness Narrative Images from the original note were not included. [facility] [address] [facility] [id number] Visit Type: Same Day PCP: Roseline Thakkar [...] for 12-14 hours a day - Wears [place] shoes, previously wore steel-sole shoes which caused [...] 10/20/2024 11:33 PM documented in this encounter [facility] 10-18-2024 Miscellaneous Notes Associated Problem(s): Varicose veins of both lower extremities documented in this encounter [facility] 09-04-2024 Telephone encounter Note S: Patient spoke [...] urination Protocols used: Urination Pain - ADULT-[place] [facility] 09-04-2024 Miscellaneous Notes S: Patient spoke with [...] Pain - ADULT-[place] documented in this encounter [facility] 07-28-2024 History of Present illness Narrative Images from the original note were not included. [facility] [place] [address] [facility] [address] Dept: [phone] Dept Visit Date: 07/28/24 HPI: October Ryley [...] are pruritic. We have no records from [facility], we have requested the patient to complete zabrina prior but no acesss. I have minimal reports via care everywhere. Last ed visit I see was 04/13, so three months ago. A culture was obtained, mrsa. This is when she was prescribed linezolid. [place] it got better but then worsened. Current [...] History: Diagnosis Date SEGUNDO (acute kidney injury) ([facility]) 01/06/2016 Anxiety Asthma Bipolar disorder ([facility]) Bipolar I disorder ([facility]) 11/16/2019 control Mirena 10/10/14 BMI 33.0-33.9,adult Chronic [...] today. Need to get those records from [facility]-she will complete an zabrina at check out- [...] fail to improve. Goals None 'Ramya Segovia APRN-MARKETING OUTREACH COORDINATOR 07/28/2024 12:50 PM documented in this encounter [facility] 07-28-2024 History of Present illness Narrative Images from the original note were not included. [facility] [place] [address] [facility] [address] Dept: [phone] Dept Visit Date: 07/28/24 HPI: October Ryley [...] are pruritic. We have no records from [facility], we have requested the patient to complete zabrina prior but no acesss. I have minimal reports via care everywhere. Last ed visit I see was 04/13, so three months ago. A culture was obtained, mrsa. This is when she was prescribed linezolid. [place] it got better but then worsened. Current [...] today. Need to get those records from [facility]-she will complete an zabrina at check out- [...] 07/28/2024 12:50 PM documented in this encounter [facility] 07-28-2024 Miscellaneous Notes Addended by: RAMYA SEGOVIA on: 08/01/2024 09:14 AM Modules accepted: Level of Service documented in this encounter [facility] 07-28-2024 Note Addended by: RAMYA SEGOVIA on: 08/01/2024 09:14 AM Modules accepted: Level of Service [facility] 07-03-2024 Telephone encounter Note Spoke with pt advising message She advised her sx haven't resolved after finishing the medication Pt tried to get a refill but DDM advised she needs seen by the office Appt scheduled with tomorr [facility] 07-03-2024 Miscellaneous Notes Spoke with pt advising message She advised her sx haven't resolved after finishing the medication Pt tried to get a refill but DDM advised she needs seen by the office Appt scheduled with tomorr She needs to talk to [facility] about this. Not sure why she needs a refill of the med she already took for the mrsa. Name of caller: October Contact phone number: [phone] Relationship to Patient: patient Provider: Ariane Practice: [...] know Mychart message sent and needing for [facility] information to get list of Rx pt was on. Lmom to fill out ZABRINA for Rx from [facility]. Please obtain records from [facility]. Name of caller: October Contact phone number: [phone] Relationship to Patient: patient Provider: ariane Practice: [...] their call: no documented in this encounter [facility] 07-03-2024 Telephone encounter Note She needs to talk to [facility] about this. Not sure why she needs a refill of the med she already took for the mrsa. [facility] 06-30-2024 Telephone encounter Note Name of caller: October Contact phone number: [phone] Relationship to Patient: patient Provider: Ariane Practice: Lynda FRASER Chief Complaint/Reason for Call: Patient called back in with the medication name for her MRSA. It is called ZYVIX (Lineolid). Please note and advise. Best time of day caller can be reached: any Patient advised that office/PCP has 24-48 business hours to return their call: No [facility] 06-30-2024 Miscellaneous Notes Name of caller: October Contact phone number: [phone] Relationship to Patient: patient Provider: Ariane Practice: Lynda FRASER Chief Complaint/Reason for Call: Patient called back in with the medication name for her MRSA. It is called DARYIX (Lineolid). Please note and advise. Best time of day caller can be reached: any Patient advised that office/PCP has 24-48 business hours to return their call: No Lmom letting pt know [employer] message sent and needing for [facility] to get list of Rx pt was on. Lmom to fill out ZABRINA for Rx from [facility]. Please obtain records from [facility]. Name of caller: October Contact phone number: [phone] Relationship to Patient: patient Provider: ariane Practice: [...] their call: no documented in this encounter [facility] 06-23-2024 Telephone encounter Note We have been unable to reach your patient to schedule their testing. Test Name: Head and neck ultrasound 1st Attempt: 01/15/24 via Facebookt message 2nd Attempt: Cancelled/no show 01/19/24, 01/29/24, 06/07/24 TE sent to office, cancel request 06/23/24 [facility] 06-23-2024 Miscellaneous Notes We have been unable to reach your patient to schedule their testing. Test Name: Head and neck ultrasound 1st Attempt: 01/15/24 via Facebookt message 2nd Attempt: Cancelled/no show 01/19/24, 01/29/24, 06/07/24 TE sent to office, cancel request 06/23/24 documented in this encounter [facility] 06-20-2024 Telephone encounter Note Lmom letting pt know [employer] message sent and needing for [facility] information to get list of Rx pt was on. [facility] 06-20-2024 Miscellaneous Notes Lmom letting pt know [employer] message sent and needing for [facility] information to get list of Rx pt was on. Lmom to fill out ZABRINA for Rx from [facility]. Please obtain records from [facility]. Name of caller: October Contact phone number: [phone] Relationship to Patient: patient Provider: ariane Practice: [...] their call: no documented in this encounter [facility] 06-16-2024 Telephone encounter Note Lmom to fill out ZABRINA for Rx from [facility]. [facility] 06-16-2024 Miscellaneous Notes Lmom to fill out ZABRINA for Rx from [facility]. Please obtain records from [facility]. Name of caller: October Contact phone number: [phone] Relationship to Patient: patient Provider: ariane Practice: [...] their call: no documented in this encounter [facility] 06-06-2024 Telephone encounter Note Please obtain records from [facility]. [facility] 06-06-2024 Miscellaneous Notes Please obtain records from [facility]. Name of caller: October Contact phone number: [phone] Relationship to Patient: patient Provider: ariane Practice: [...] their call: no documented in this encounter [facility] 06-05-2024 Telephone encounter Note Name of caller: October Contact phone number: [phone] Relationship to Patient: patient Provider: Ariane Practice: Lynda Primary Chief Complaint/Reason for Call: Patient said she needs her amlodipine sent to the [facility] on . Please advise Best time of day caller can be reached: any Patient advised that office/PCP has 24-48 business hours to return their call: No [facility] 06-05-2024 Miscellaneous Notes Name of caller: October Contact phone number: [phone] Relationship to Patient: patient Provider: Ariane Practice: Lynda Primary Chief Complaint/Reason for Call: Patient said she needs her amlodipine sent to the [facility] on [address] Please advise Best time of day caller can be reached: any Patient advised that office/PCP has 24-48 business hours to return their call: No documented in this encounter [facility] 06-05-2024 Telephone encounter Note Name of caller: October Contact phone number: [phone] Relationship to Patient: patient Provider: ariane Practice: [...] business hours to return their call: no [facility] 04-13-2024 Note ED Nursing Discharge Summary Entered On: 04/13/2024 17:21 EDT Performed On: 04/13/2024 17:00 EDT by Agustina Goodman RN [place] Information [id number] ED IV's : No IV ED IV Site Assessment : No IV ED Vitals Completed : Yes ED Final Assessment Completed : Yes ED Progress Note Completed : Yes Complete all PRN/Pain response forms? : Yes ED Disassociate Patient from Monitor : Yes Updated Depart Time : Yes ED Belongings sent w patient [id number] : Not applicable Agustina Goodman RN - 04/13/2024 17:21 EDT Education Instructions given to : Patient TeachBack Methodology : Explanation, Printed Material Barriers to Learning : None evident Agustina Goodman RN - 04/13/2024 17:21 EDT ED Assistance Summary Assistance Given? : No Agustina Goodman RN - 04/13/2024 17:21 EDT [facility] 03-28-2024 History of Present illness Narrative Images from the original note were not included. [facility] [address] [facility] [address] Visit Type: Office Visit PCP: Roseline [...] scabies. Notes she is following with the sales account associate. Has appt with derm on Wednesday. (Dr. [...] 03/28/2024 5:21 PM documented in this encounter [facility] 03-15-2024 Telephone encounter Note S: Patient spoke [...] less.) Protocols used: Rash or Redness - [id number]-[id number]-SF [facility] 03-15-2024 Miscellaneous Notes S: Patient spoke with [...] less.) Protocols used: Rash or Redness - Xyhffegfds-UDRFB-PB documented in this encounter [facility] 03-03-2024 Note ED Nursing Discharge Summary Entered On: 03/03/2024 12:07 EDT Performed On: 03/03/2024 12:00 EDT by Pat TRACY, Ramya FRANKLIN Information [id number] ED IV's : No IV ED IV Site Assessment : No IV ED Vitals Completed : Yes ED Final Assessment Completed : Yes ED Progress Note Completed : Yes Complete all PRN/Pain response forms? : Yes ED Disassociate Patient from Monitor : N/A Updated Depart Time : Yes ED Belongings sent w patient [id number] : Not applicable Ramya Stewart RN - [...] Ramya Stewart RN - 03/03/2024 12:07 EDT [facility] 01-11-2024 History of Present illness Narrative Images from the original note were not included. [facility] [address] [facility] [address] Dept: [phone] Dept Reason for Visit: Neck Mass (Lymph node, x 3 wks, bilateral, painful) Assessment and Plan 1. Lymphadenopathy, cervical - US head neck soft tissue Follow up if symptoms worsen or fail to improve. Subjective HPI Pt presents today for evaluation of lymph nodes in her neck. Was seen by the sales account associate and was told to follow up with [...] Jennifer Rocha PA-C documented in this encounter [facility] 01-11-2024 History of Present illness Narrative Images from the original note were not included. [facility] [address] [facility] [address] Dept: [phone] Dept Reason for Visit: Neck Mass (Lymph node, x 3 wks, bilateral, painful) Assessment and Plan 1. Lymphadenopathy, cervical - US head neck soft tissue Follow up if symptoms worsen or fail to improve. Subjective HPI Pt presents today for evaluation of lymph nodes in her neck. Was seen by the sales account associate and was told to follow up with [...] Jennifer Rocha PA-C documented in this encounter [facility] 01-11-2024 Miscellaneous Notes Addended by: JENNIFER ROCHA on: 01/12/2024 11:20 AM Modules accepted: Level of Service documented in this encounter [facility] 01-11-2024 Note Addended by: JENNIFER ROCHA on: 01/12/2024 11:20 AM Modules accepted: Level of Service [facility] 01-11-2024 Note Addended by: JENNIFER ROCHA on: 01/12/2024 11:20 AM Modules accepted: Level of Service [facility] 12-08-2023 Telephone encounter Note Yes. No urgency. [facility] 12-08-2023 Miscellaneous Notes Yes. No urgency. Name of caller: October Contact phone number: [phone] Relationship to Patient: Patient Provider: Practice: [facility] Chief Complaint/Reason for Call: Patient called [...] Name of caller: Annita Contact phone number: [phone] Relationship to Patient: [facility] Provider: Dr. Thakkar Practice: [facility] Chief Complaint/Reason for Call: (pt was not on the line to triage) PT was seen downstairs at [facility] today and it was discovered [...] their call: Yes documented in this encounter [facility] 12-08-2023 Telephone encounter Note Name of caller: October Contact phone number: [phone] Relationship to Patient: Patient Provider: Practice: [facility] Chief Complaint/Reason for Call: Patient called in regarding voicemail left. Patient stated she only can come in the afternoon, scheduled 12/15 with . Please advise. Best time of day caller can be reached: N/A Patient advised that office/PCP has 24-48 business hours to return their call: N/A [facility] 12-08-2023 Telephone encounter Note Sent mychart message [facility] 12-08-2023 Telephone encounter Note Left message on patient's voicemail asking her to call back and schedule an office visit. If patient calls, please schedule first available 20 OV. [facility] 12-08-2023 Telephone encounter Note 20 fine. [facility] 12-07-2023 Telephone encounter Note That's fine. [facility] 12-07-2023 Telephone encounter Note Name of caller: Annita Contact phone number: [phone] Relationship to Patient: [facility] Provider: Dr. Thakkar Practice: [facility] Chief Complaint/Reason for Call: (pt was not on the line to triage) PT was seen downstairs at [facility] today and it was discovered that pt has palpable lymph nodes and was advised to be seen immediately. The office states they can fax any clinical documentation if need be. Please advise pt on next steps. Best time of day caller can be reached: any Patient advised that office/PCP has 24-48 business hours to return their call: Yes [facility] 11-12-2023 History of Present illness Narrative Images from the original note were not included. [facility] [address] [facility] [address] Visit Type: New To Provider PCP: [...] She was getting substance abuse treatment at [place] [address]. Currently living in a sober [place] [facility]. Psych is through [facility]. She has the following concerns today: Seen by UC at [facility] for scalp lesions and lymph node inflammation. [...] (HCC) Bipolar I disorder (HCC) 11/16/2019 control [facility] 10/10/14 BMI 33.0-33.9,adult Chronic back pain Degeneration [...] 0 min Stress: Stress Concern Present (11/12/2023) [employer] [place] [facility] Occupational [employer] - Occupational Stress Questionnaire Feeling of Stress : To some extent Social Connections: Moderately Integrated (11/12/2023) Social Connection and Isolation Panel [NHANES] Frequency of Communication with Friends and Family: More than three times a week Frequency of Social Gatherings with Friends and Family: Once a week Attends Orthodoxy Services: More than 4 times per year [...] for this visit. documented in this encounter [facility] 09-23-2023 Telephone encounter Note error [facility] 09-23-2023 Miscellaneous Notes error documented in this encounter [facility] 09-17-2023 Note ED Nursing Discharge Summary Entered On: 09/17/2023 19:06 EST Performed On: 09/17/2023 19:05 EST by Agustina Goodman RN DC Information [id number] ED IV's : No IV ED IV Site Assessment : No IV ED Vitals Completed : Yes ED Final Assessment Completed : Yes ED Progress Note Completed : Yes Complete all PRN/Pain response forms? : N/A ED Disassociate Patient from Monitor : Yes Updated Depart Time : Yes ED Belongings sent w patient [id number] : Not applicable Agustina Goodman RN - 09/17/2023 19:06 EST Education Instructions given to : Patient TeachBack Methodology : Explanation, Printed Material Barriers to Learning : None evident Agustina Goodman RN - 09/17/2023 19:06 EST ED Assistance Summary Assistance Given? : No Agustina Goodman RN - 09/17/2023 19:06 EST [facility] 09-16-2023 Telephone encounter Note S: RADHAMES Sheppard with [facility] spoke with [facility] nurse regarding neck lump. B: Onset of symptoms/concern today. A: [facility] Identification And Records Commander states that patient is at Urgent Care [...] this time. Reason for Disposition Doctor (or MANAGER ROOFING/PA) call to PCP Protocols used: PCP Call - No [id number] [facility] 09-16-2023 Miscellaneous Notes S: RADHAMES Sheppard with [facility] spoke with [facility] nurse regarding neck lump. B: Onset of symptoms/concern today. A: Claire Sheppard Identification And Records Commander states that patient is at Urgent Care [...] this time. Reason for Disposition Doctor (or MANAGER ROOFING/PA) call to PCP Protocols used: PCP Call - No [id number] documented in this encounter [facility] 07-07-2023 Telephone encounter Note Patient has not been seen by you since 2019, has an appt 07/27/23. Dr. Duong sees and rx's topamax and tramadol. If you prefer not to rx until appt, we can call and let patient know. [facility] 07-07-2023 Miscellaneous Notes Patient has not been [...] medication tab): 12.16.21 documented in this encounter [facility] 07-07-2023 Telephone encounter Note Patient states she [...] of last refill (see medication tab): 12.16.21 [facility] 06-25-2023 Note HNO ID: [id number] Author: Ashlee Iyer APRN.TERI Service: ? Author [...] up if itching continues Ashlee Iyer APRN.TERI [facility] 06-25-2023 History of Present illness Narrative Subjective [...] Follow up if itching continues Ashlee Iyer APRN.MARKETING OUTREACH COORDINATOR documented in this encounter [facility] 05-12-2023 Note HNO ID: [id number] Author: Jen Gore APRN.MARKETING OUTREACH COORDINATOR Service: ? Author Type: Nurse Practitioner Type: [...] PREDNISONE 10 MG TABLET Jen Gore APRN.TERI [facility] 05-12-2023 Note HNO ID: [id number] Author: Radha Delacruz RT(R) Service: ? Author Type: Chimney Supervisor Brick Type: Progress Notes Filed: 05/12/2023 4:06 PM [...] RT Roxane(R) May 12, 2023 3:57 PM [facility] 05-12-2023 History of Present illness Narrative Subjective [...] persist - PREDNISONE 10 MG TABLET Jen oGre APRN.MARKETING OUTREACH COORDINATOR documented in this encounter [facility] 03-03-2023 Note [facility] Medical Records Department [address] [place] [address] Discharge Summary 03/03/23 1058 MR#: [id number] Acct: [id number] Name: RYLEYOctober Rep #: [id number] : 1970 52 From: Taylor Alarcon DO PCP: Dr. Shira Rider MD Status:ADM IN [facility] Prov[facility] Date of Admission: 03/01/23 Date of [...] who presented to the emergency department at [facility] on 03/01/2023 for acute opiate withdrawal. She [...] habitus and well nourished Constitutional Narrative: Middle-aged, -[place] female, sitting up in bed watching television, [...] Normal Activity Meaning (more content not included)... [facility] 03-02-2023 Progress note Note Date/Time March 02, 2023 12:43pm [facility] Medical Records Department [address] [place] [address] Progress Note - Hospitalist 03/02/23 1240 MR#: [id number] Acct: [id number] Name: RYLEYOctober Rep #:[id number] : 1970 52 From: Taylor Alarcon DO PCP: Dr. Shira Rider MD Status:ADM IN Location: [place] [address] Reason for Visit Reason for Visit: Opiate [...] habitus and well nourished Constitutional Narrative: Middle-aged, -[place] female, sitting up in bed watching television, [...] frequent ambulation Charges/Coding Visit Charges Inpatient E&M: 41616 Subs Hosp L1 03/02/23 1243 <Electronically signed by Taylor Alarcon DO> Cosigner Signature (if applicable): CC: ~ Signed [facility] Work Phone: 1(328) 893-932708-14-2023 Progress note Author Taylor Alarcon [facility] March 01, 2023 8:19am Note Date/Time March 01, 2023 8: 04am [facility] Medical Records Department [address] [place] [address] Progress Note - Hospitalist 03/01/23 0759 MR#: [id number] Acct: [id number] Name: RYLEY Rep #:[id number] : 1970 52 From: Taylor Alarcon DO PCP: Dr. Shira Rider MD Status:ADM IN Location: [place] [address] Reason for Visit Reason for Visit: Acute opiate withdrawal Subjective Subjective Ms. Hedrick is a 52-year-old white female with a history of opiate abuse who presented to the emergency department at [facility] on 03/01/2023 andacute opiate withdrawal. She is [...] % (Auto) 54.0, Lymph % (Auto) 32.7, [place]% (Auto) 7.2, Eos % (Auto) 4.9, Baso [...] Cosigner Signature (if applicable): CC: ~ Signed [facility] Work Phone: 1(126) 557-158908-14-2023 History and physical note Author Kristen Caraballo [facility] March 01, 2023 2:35am Note Date/Time March 01, 2023 1: 48am [facility] Medical Records Department [address] [place] [address] H&P Exam - Hospitalist 03/01/23 0145 MR#: [id number] Acct: [id number] Name: RYLEY Rep #:[id number] : 1970 52 From: Kristen Caraballo MD PCP: Dr. Shira Rider MD Status:ADM IN Location: [place] [address] HPI - General General Date of Admission: 03/01/23 Date of Service: 03/01/23 Chief Complaint: Acute Opiate withdrawal HPI Narrative The patient is a 52 y/o F w/ PMHx: Allergic rhinitis, HTN, Anxiety and Depression/Bipolar disorder, GERD, Overweight, Polysubstance abuse (Percocet/Opiates/Cocaine, Prior IVDA w/ heroin) who presents to the [facility] ED on 8/14/23 with noted acute [...] MDMA and cocaine, ethyl alcohol level <3. [facility] Medical History (Updated 03/01/23 @ 01:46 [...] % (Auto) 54.0, Lymph % (Auto) 32.7, [place]% (Auto) 7.2, Eos % (Auto) 4.9, Baso [...] IVDA w/ heroin) who presents to the [facility] ED on 03/01/23 with noted acute [...] current presentation. Charges/Coding Visit Charges Inpatient E&M: 86540 Init Hosp L3 03/01/23 0235 <Electronically signed by Kristen Caraballo MD> Cosigner Signature (if applicable): CC: Dr. Kristen Caraballo MD; Dr. Shira Rider MD~ Signed [facility] Work Phone: 1(724) 428-999308-14-2023 Discharge summary Author Fabio Rae [facility] March 01, 2023 2:21am Note Date/Time March 01, 2023 1: 23am [facility] Medical Records Department [address] [place] [address] Emergency Department Summary 03/01/23 MR#: [id number] Acct: [id number] Name: KAMLA HEDRICK Rep #:[id number] : 1970 52 From: Fabio Lieberman PCP: Dr. Shira Rider MD Status:ADM IN Location: [place] [address] HPI History of Present Illness Chief Complaint: Substance Abuse Informant: patient Narrative Narrative: Presents here requesting detox. Reports previous heroin user went to [facility] in 2017. Patient relapsed this past September [...] She was reporting when she was in [place] [facility] had polysubstance findings from her toxicology screen including methadone MDMA and benzos which she states she did not use those. She had meth stating she tried it before [place] [facility] did not like it. Medically discussion she states she has concerns for leg swelling. No trouble urinating. She states shewas attacked by pit bull in January before going to [place] [facility]. Denies any fevers. Prior similar symptoms: Yes [facility] Medical History (Updated 03/01/23 @ 01:46 [...] clinician: Hospitalist This note was generated with [employer] dictation software. It may contain incorrectwords, spelling, [...] % (Auto) 54.0 Lymph % (Auto) 32.7 [place] % (Auto) 7.2 Eos % (Auto) 4.9 [...] regimen, Hypokalemia Disposition Disposition: Acute Care Hospital [facility] What to do if you have Problems For any increased pain, shortness of breath, bleeding, nausea or vomiting, chestpain, or any unexpected problems, contact your Primary Care Provider. Call [facility] ([phone]) or report to the closest Emergency Room. Call 911 if necessary. 03/01/23220 <Electronically signed by Fabio Lieberman> Cosigner Signature (if applicable): CC: Dr. Shira Rider MD ~ Signed [facility] Work Phone: 1(944) 745-116601-06-2023 Telephone encounter Note* Telephone Encounter - Kalee Patel RN - 07/24/2022 4:43 PM EST S: Patient spoke with [facility] nurse regarding bugs are leaving [...] and [facility] Patient understands care advice. No further needs at this time. Patient instructed to call back with new or worsening symptoms. Reason for Disposition [1] Bipolar disorder (manic depression) AND [2] worsening (e.g., thinking less clearly, more agitated, less able to do activities of daily living) Protocols used: Bipolar Disorder (Manic Depression)-ADULT- [id number] Miscellaneous Notes* Telephone Encounter - Kalee Patel RN - 07/24/2022 4:43 PM EST S: Patient spoke with [facility] nurse regarding bugs are leaving [...] Bipolar Disorder (Manic Depression)-ADULT- documented in this [facility]01-05-2023 Telephone encounter Note* Telephone Encounter - Marva Dye RN - 07/23/2022 8:26 PM EST S: Patient [facility] regarding head lice. B: Per nurse triage ticket created by [facility] A: Patient disconnected prior to speaking with nurse. No answer upon return call to patient. R: Attempted to return call to pt two times. Left voice message for patient to call the office if assistance is still needed. Reason for Disposition Second attempt to contact caller AND no contact made. Phone number verified. Protocols used: No Contact or Duplicate Contact [id number] [facility] [id number] Miscellaneous Notes* Telephone Encounter - Marva Dye [...] Protocols used: No Contact or Duplicate Contact [id number] documented in this [facility]Sum[facility] HealthDischarge summary Author Fabio Mcbride [facility] March 01, 2023 2:21am Note Date/Time March 01, 2023 1: 23am [facility] Medical Records Department [address] [place] [address] Emergency Department Summary 03/01/23 MR#: [id number] Acct: [id number] Name: RYLEYOctober Rep #:[id number] : 1970 52 From: Fabio Lieberman PCP: Dr. Shira Rider MD Status:ADM IN Location: [place] [address] HPI History of Present Illness Chief Complaint: Substance Abuse Informant: patient Narrative Narrative: Presents here requesting detox. Reports previous heroin user went to [facility] in 2017. Patient relapsed this past September [...] She was reporting when she was in [place] [facility] had polysubstance findings from her toxicology screen including methadone MDMA and benzos which she states she did not use those. She had meth stating she tried it before [facility] [facility] did not like it. Medically discussion she states she has concerns for leg swelling. No trouble urinating. She states shewas attacked by pit bull in January before going to [place] [facility]. Denies any fevers. Prior similar symptoms: Yes [facility] Medical History (Updated 03/01/23 @ 01:46 [...] clinician: Hospitalist This note was generated with op5ation software. It may contain incorrectwords, spelling, and [...] % (Auto) 54.0 Lymph % (Auto) 32.7 [place] % (Auto) 7.2 Eos % (Auto) 4.9 [...] regimen, Hypokalemia Disposition Disposition: Acute Care Hospital [facility] What to do if you have Problems For any increased pain, shortness of breath, bleeding, nausea or vomiting, chestpain, or any unexpected problems, contact your Primary Care Provider. Call [facility] ([phone]) or report to the closest Emergency Room. Call 911 if necessary. 03/01/23220 <Electronically signed by Fabio Lieberman> Cosigner Signature (if applicable): CC: Dr. Shira Rider MD ~ Signed [facility] Work Phone: Discharge summary Author Taylor Alarcon [facility] March 03, 2023 11:06am Note Date/Time March 03, 2023 10 :59am [facility] Medical Records Department [address] [place] [address] Discharge Summary 03/03/23 1058 MR#: [id number] Acct: [id number] Name: RYLEYOctober Rep #:[id number] : 1970 52 From: Taylor Alarcon DO PCP: Dr. Shira Rider MD Status:ADM IN Location: [place] [address] Providers Date of Admission: 03/01/23 Date of [...] who presented to the emergency department at [facility] on 03/01/2023for acute opiate withdrawal. She is [...] habitus and well nourished Constitutional Narrative: Middle-aged, -[place] female, sitting up in bed watching television, [...] [Primary Care Provider] - Within 1 Month [facility] Doctor,Out of [Non-Staff] - Disposition Disposition (needs filled in before D/C Order can be placed): Inpatient Rehab Unit/Facility Charges/Coding Visit Charges Inpatient E&M: 83116 Disch Hosp 03/03/23 1106 <Electronically signed by Taylor Alarcon DO> Cosigner Signature (if applicable): CC: Dr. Shira Rider MD; Dr. Taylor Alarcon DO~ Signed [facility] Work Phone: Evaluation note* Diagnosis Onset Date Resolution Status History of bipolar disorder acute Hypokalemia acute Noncompliance with medication regimen acute Opiate withdrawal acute Polysubstance dependence acu [facility] Work Phone: Evaluation note* Diagnosis Onset Date Resolution Status History of bipolar disorder acute Hypernatremia acute Hypokalemia acute Noncompliance with medication regimen acute Opiate withdrawal acute Polysubstance dependence acu [facility] Work Phone: Evaluation note* Diagnosis Acute cough- Primary History of asthma Personal history of other diseases of respiratory system documented in [facility] Diagnosis Itching- Primary Unspecified pruritic disorder documented in [facility] Diagnosis Essential (primary) hypertension Unspecified essential hypertension [facility] Diagnosis Scalp lesion- Primary Unspecified disorder of skin and subcutaneous tissue Essential (primary) hypertension Unspecified essential hypertension Pure hypercholesterolemia Encounter for screening mammogram for malignant neoplasm of breast Elevated serum glucose Mild intermittent asthma without complication Gastroesophageal reflux disease without esophagitis Esophageal reflux Rash Rash and other nonspecific skin eruption Anemia, unspecified type [facility]* Diagnosis Lymphadenopathy, cervical- Primary documented [facility]* Diagnosis Lymphadenopathy, cervical- Primary [facility]* Diagnosis Bipolar I disorder (HCC)- Primary Bipolar I disorder, most recent episode (or current) unspecified Rash Rash and other nonspecific skin eruption Dysuria Gastroesophageal reflux disease without esophagitis Esophageal reflux documented in [facility]* Diagnosis Essential (primary) hypertension Unspecified essential hypertension documented in [facility]* Diagnosis Seborrheic dermatitis of scalp Other seborrheic dermatitis documented [facility]* Diagnosis Seborrheic dermatitis of scalp Other seborrheic dermatitis documented in [facility]* Diagnosis Acute bilateral knee pain- Primary Family history of rheumatoid arthritis Family history of arthritis Varicose veins of both lower extremities with pain documented in [facility]* Diagnosis Acute bilateral knee pain- Primary Family history of rheumatoid arthritis Family history of arthritis Varicose veins of both lower extremities with pain Anemia, unspecified type [facility] Author [facility] March 01, 2023 2:35am Note Date/Time March 01, 2023 1: 48am [facility] Medical Records Department [address] [place] [address] H&P Exam - Hospitalist 03/01/23 0145 MR#: [id number] Acct: [id number] Name: RYLEYOctober Rep #:[id number] : 1970 52 From: Kristen Caraballo MD PCP: Dr. Shira Rider MD Status:ADM IN Location: [facility] YE[facility]030- 1 HPI - General General Date of Admission: 03/01/23 Date of Service: 03/01/23 Chief Complaint: Acute Opiate withdrawal HPI Narrative The patient is a 52 y/o F w/ PMHx: Allergic rhinitis, HTN, Anxiety and Depression/Bipolar disorder, GERD, Overweight, Polysubstance abuse (Percocet/Opiates/Cocaine, Prior IVDA w/ heroin) who presents to the [facility] ED on 03/01/23 with noted acute [...] MDMA and cocaine, ethyl alcohol level <3. [facility] Medical History (Updated 03/01/23 @ 01:46 [...] % (Auto) 54.0, Lymph % (Auto) 32.7, [place]% (Auto) 7.2, Eos % (Auto) 4.9, Baso [...] IVDA w/ heroin) who presents to the [facility] ED on 03/01/23 with noted acute [...] current presentation. Charges/Coding Visit Charges Inpatient E&M: 73440 Init Hosp L3 03/01/23 0230 <Electronically signed by Kristen Caraballo MD> Cosigner Signature (if applicable): CC: Dr. Kristen Caraballo MD; Dr. Shira Rider MD~ Signed [facility] Work Phone: History of Present illness Narrative* [...] recent ear infections. * Patient's preferred language: Brazilian * Preferred language of the parent, legal guardian or surrogate decision-maker of this minor or incapacitated patient: Brazilian * No overt signs of domestic violence/neglect/abuse. * No referral made to Business Operations Consultant. * Pain not interfering with optimal level [...] verbalize recall / understanding and teaching complete. [id number] MAC1 [address] [place] Work Phone: Reason for referral (narrative)* Consultation (Routine) - Pending Review Specialty Diagnoses / Procedures Referred By Ana t Referred To Contact Dermatology Diagnoses Scalp lesion Procedures UT OFFICE/OUTPATIENT NEW HIGH MDM 60 MINUTES Roseline Thakkar DO [address] [place] [address] Devin Sorto MD [address] [place] [address] Referral ID Status Reason Start Date Expiration Date Visits Requested Visits Authorized [id number] Pending Review Specialty Services Required 11/12/2023 11/11/2024 1 1 [facility] for referral (narrative)* Consultation (Routine) - Pending Review Specialty Diagnoses / Procedures Referred By Contac t Referred To Contact Infectious Diseases Diagnoses Rash Procedures UT OFFICE/OUTPATIENT NEW HIGH MDM 60 MINUTES Roseline Thakkar DO [address] [place] [address] [facility] [address] [place] [address] Referral ID Status Reason Start Date Expiration Date Visits Requested Visits Authorized [id number] Pending Review Specialty Services Required 03/28/2024 03/28/2025 1 1 T [facility] Summary Purpose Family History Relationship Condition Age at Onset Recorded Date/T meghna mother Diabetes mellitus Unknown Hypertension Unknown Rheumatoid arthritis Unknown father Diabetes mellitus Unknown Malignant neoplasm Unknown Advance Directives Advance Directive Response Recorded Date/ Time Living Will No March 01 3 12:57am Power of Fine Arts Packer No March 01 023 12:57am Advance Directive Response Recorded Date/ Time Living Will No March 01 3 3:04am Power of Fine Arts Packer No March 01, 023 3:04am Chief Complaint [...] DATE CREATED AUTHOR AUTHOR'S ORGANIZ ATION 01/12/2018 [facility] DATE CREATED AUTHOR AUTHOR'S ORGANIZ ATION 01/12/2018 [facility] DATE CREATED AUTHOR AUTHOR'S ORGANIZ ATION 10/15/2018 [facility] DATE CREATED AUTHOR AUTHOR'S ORGANIZ ATION 10/24/2018 [facility] DATE CREATED AUTHOR AUTHOR'S ORGANIZ ATION 08/11/2020 [facility] DATE CREATED AUTHOR AUTHOR'S ORGANIZ ATION 09/13/2021 [facility] DATE CREATED AUTHOR AUTHOR'S ORGANIZ ATION 09/17/2021 [facility] DATE CREATED AUTHOR AUTHOR'S ORGANIZ ATION 12/27/2022 [facility] DATE CREATED AUTHOR AUTHOR'S ORGANIZ ATION 03/10/2023 [facility] DATE CREATED AUTHOR AUTHOR'S ORGANIZ ATION 06/28/2023 [facility] DATE CREATED AUTHOR AUTHOR'S ORGANIZ ATION 04/25/2024 [facility] DATE CREATED AUTHOR AUTHOR'S ORGANIZ ATION 08/04/2024 [facility] DATE CREATED AUTHOR AUTHOR'S ORGANIZ ATION 11/29/2024 [facility] Care Teams [...] Dr. Taylor Alarcon DO Attending Provider Active Opthalmic Tech Relationship Specialty Start Date End Date Shira Rider MD [address] [place] [address] [place] [address] PCP - General 04/11/18 Opthalmic Tech Relationship Specialty Start Date End Date Shira Rider MD [address] [place] [address] [place] [address] PCP - General 04/11/18 Opthalmic Tech Relationship Specialty Start Date End Date Shira Rider MD [address] [place] [address] [place] [address] PCP - General 04/11/18 Opthalmic Tech Relationship Specialty Start Date End Date Roseline Thakkar DO [address] [place] [address] [place] [address] PCP - General Internal Medicine 10/12/23 Opthalmic Tech Relationship Specialty Start Date End Date Roseline Thakkar DO [address] [place] [address] [place] [address] PCP - General Internal Medicine 10/12/23 Opthalmic Tech Relationship Specialty Start Date End Date Roseline Thakkar DO [address] [place] [address] [place] [address] PCP - General Internal Medicine 10/12/23 Opthalmic Tech Relationship Specialty Start Date End Date Roseline Thakkar DO [address] [place] [address] [place] [address] PCP - General Internal Medicine 10/12/23 Opthalmic Tech Relationship Specialty Start Date End Date Roseline Thakkar DO [address] [place] [address] [place] [address] PCP - General Internal Medicine 10/12/23 Opthalmic Tech Relationship Specialty Start Date End Date Roseline Thakkar DO [address] [place] [address] [place] [address] PCP - General Internal Medicine 10/12/23 Opthalmic Tech Relationship Specialty Start Date End Date Roseline Thakkar DO [address] [place] [address] [place] [address] PCP - General Internal Medicine 10/12/23 Opthalmic Tech Relationship Specialty Start Date End Date Shira Rider MD [address] [place] [address] [place] [address] PCP - General 04/11/18 Opthalmic Tech Relationship Specialty Start Date End Date Shira Rider MD [address] [place] [address], [address] [place] [address] PCP - General 04/11/18 Opthalmic Tech Relationship Specialty Start Date End Date Roseline Thakkar DO [address] [place] [address] [place] [address] PCP - General Internal Medicine 10/12/23 Opthalmic Tech Relationship Specialty Start Date End Date Roseline Thakkar DO [address] [place] [address] [place] [address] PCP - General Internal Medicine 10/12/23 Opthalmic Tech Relationship Specialty Start Date End Date Roseline Thakkar DO [address] [place] [address] [place] [address] PCP - General Internal Medicine 10/12/23 Opthalmic Tech Relationship Specialty Start Date End Date Roseline Thakkar DO [address] [place] [address] PCP - General Internal Medicine 10/12/23 Goals [...] or prosecute any alcohol or drug abuse patient.[facility] the event this information is protected by the Federal Confidentiality of Alcohol and Drug Abuse Patient Records regulations: The Federal rules restrict any use of the information to criminally investigate or prosecute any alcohol or drug abuse patient.[facility] the event this information is protected by the Federal Confidentiality of Alcohol and Drug Abuse Patient Records regulations: The Federal rules restrict any use of the information to criminally investigate or prosecute any alcohol or drug abuse patient.[facility] Reason for Visit (unrecogniz ed section and [...] BE BASED ON THE PRIMARY CLINICAL RECORDS. [email or web address] provides no warranty or guarantee of the accuracy or completeness of information in this document.
[2025-01-25 23:00] VITALS: BP 97/63; PULSE 54; RESP 12; O2SAT 100
[2025-01-25 23:25] VITALS: BMI 25.7
[2025-01-26 00:36] VITALS: BP 108/78; PULSE 48; RESP 16; TEMP 36.7; O2SAT 98
[2025-01-26 04:29] VITALS: BP 108/75; PULSE 57; RESP 15; TEMP 36.6; O2SAT 98
[2025-01-26 09:00] VITALS: BP 126/86; PULSE 59; RESP 15; TEMP 37; O2SAT 98
--- NOTE | 2025-01-26 13:25 | ADDICTION ---
Addendum entered by Marlene Bonilla 01/27/25 15:14: Patient declined residential tx and reported she will follow up with [facility] for outpatient tx. Original Note: This sign writer letterer or painter met with PT to conduct ASAM, MSE, DUDIT assessments and to plan for d/c. PT A+Ox4 and participated actively. All assessments completed. PT plans to f/u with [facility] at [facility] for follow-up in patient treatment services on Wednesday if approved. [facility] will transport to treatment.
--- NOTE | 2025-01-26 14:00 | PCM.PN.HOSP ---
Reason for Visit Reason for Visit: Diagnoses Opioid abuse, uncomplicated (01/25/25) Subjective Subjective Patient was seen and examined today, she has a little bit of nasal congestion but otherwise she has no significant symptoms of withdrawal. Patient states she wants to do an outpatient detox program. Objective Data Objective Data Vital Signs: Vital Signs Temp Pulse Resp BP Pulse Ox O2 Del Method 98.6 F 59 L 15 126/86 H 98 Room Air 01/26/25 09:00 01/26/25 09:00 01/26/25 09:00 01/26/25 09:00 01/26/25 09:00 01/26/25 09:38 Oxygen Delivery Method Room Air Weight: 72.5 kg Body Mass Index (BMI) 25.7 Intake & Output: Intake and Output for Last 24 Hours 01/24/25 01/25/25 01/26/25 23:59 23:59 23:59 Intake Total 300 / 300 Balance 300 / 300 Lab / Micro Data 01/25/25 20:26 01/25/25 20:26 Labs: Laboratory Results - last 24 hr 01/25/25 20:20: Urine Opiates Screen PRESUMPTIVE POSITIVE, U Buprenorphine Qual NEGATIVE, Ur Oxycodone Screen NEGATIVE, Urine Methadone Screen NEGATIVE, Urine Fentanyl Screen PRESUMPTIVE POSITIVE, Ur Barbiturates Screen NEGATIVE, Ur Phencyclidine Scrn NEGATIVE, Ur Amphetamines Screen NEGATIVE, U Benzodiazepines Scrn NEGATIVE, Urine Cocaine Screen PRESUMPTIVE POSITIVE, U Cannabinoids Screen NEGATIVE 01/25/25 20:26: WBC 5.8, RBC 3.85 L, Hgb 11.2 L, Hct 33.8 L, MCV 87.8, MCH 29.1, MCHC 33.1, RDW Std Deviation 40.5, RDW Coeff of Caroline 12.6, Plt Count 306, MPV 9.4, Immature Gran % (Auto) 0.300, Neut % (Auto) 54.6, Lymph % (Auto) 31.9, [place] % (Auto) 5.3, Eos % (Auto) 7.2 H, Baso % (Auto) 0.7, Absolute Neuts (auto) 3.2, Absolute Lymphs (auto) 1.86, Nucleated RBC % 0, Sodium 142, Potassium 4.0, Chloride 109 H, Carbon Dioxide 21.8, Anion Gap 11, BUN 13, Creatinine 0.88, Estim Creat Clear Calc 76.00, Est GFR (MDRD) Non-Af 79, BUN/Creatinine Ratio 15.0, Glucose 143 H, Hemoglobin A1c 5.6, Calcium 9.0, Total Bilirubin 0.35, AST 21, ALT 19, Alkaline Phosphatase 83, Total Protein 6.9, Albumin 4.0, Globulin 3.0, Albumin/Globulin Ratio 1.3, Serum , Qual NEGATIVE, Ethyl Alcohol < 10.1 Physical Exam Const alert, oriented x3, no apparent distress, average body habitus and healthy appearing General Appearance: cooperative, well kempt and well developed Orientation / Consciousness: awake, oriented to person, oriented to place and oriented to time HEENT normocephalic, head/scalp atraumatic and moist oral mucous membranes Eyes PERRL, EOMs intact bilaterally and conjunctivae normal Neck supple, no JVD, thyroid normal and no carotid bruits General: trachea midline Resp normal respiratory effort, no retractions, no use of accessory muscles and clear to auscultation bilaterally Auscultation: Negative for rales, rhonchi or wheezes Cardio regular rate, regular rhythm, S1 normal heart sound, S2 normal heart sound, no murmurs, no rub and no gallops GI normal to inspection, nondistended, normoactive bowel sounds, soft to palpation, non-tender and non-distended Extremity no clubbing, cyanosis or edema Skin no rashes or lesions noted General Skin Exam: no breakdown Neuro oriented x3, CN's II-XII intact bilaterally, moves all extremities, no focal motor deficits and no sensory deficits noted Sensorium / Orientation: awake and alert Speech: speech normal Psych affect normal Assessment & Plan Assessment/Plan (1) Opiate dependence: PLAN: Plan 1. Opiate withdrawal-patient is minimally symptomatic at this time, she will be seen by addiction social science instructor, Subutex will be started when she is symptomatic. #2 polysubstance abuse-complicates care, management, recovery, and prognosis #3 bipolar disorder-patient will remain on her present medication Total clinical time spent by myself addressing the patient's medical issues, reviewing all of her data, and collaborating patient's care team: 25 minutes Charges/Coding Visit Charges Inpatient E&M: 48084 [facility] Hosp L1
[2025-01-26 15:00] VITALS: BP 122/76; PULSE 55; RESP 16; TEMP 37.1; O2SAT 99
[2025-01-26 23:51] VITALS: BP 97/58; PULSE 53; RESP 16; TEMP 36.5; O2SAT 98
[2025-01-27] VITALS (7 sets, daily range): BP systolic 95–134; BP diastolic 68–85; PULSE 53–70; RESP 16–20; TEMP 36.7–36.9; O2SAT 94–100
[2025-01-27] MEDS: hydrOXYzine PAM 25 MG Capsule 50 MG PO (04:40)
--- NOTE | 2025-01-27 14:31 | NURSING ---
pt asked to speak to this nurse re:symptoms-nurse
--- NOTE | 2025-01-27 15:47 | PN.HOSP_ITS ---
Reason for Visit Reason for Visit: Diagnoses Opioid abuse, uncomplicated (01/25/25) Opioid dependence, uncomplicated (01/25/25) Subjective Subjective Patient was seen and examined today, she complains of anxiety, I increase the patient's Vistaril today but she still has a problem with feeling very nervous. I have elected to give her a dose of Seroquel to see if this would help. Patient is now on Subutex Objective Data Objective Data Vital Signs: Vital Signs Temp Pulse Resp BP Pulse Ox O2 Del Method 98.0 F 70 18 134/80 H 99 Room Air 01/27/25 15:03 01/27/25 15:03 01/27/25 15:03 01/27/25 15:03 01/27/25 15:03 01/27/25 15:03 Oxygen Delivery Method Room Air Weight: 72.5 kg Body Mass Index (BMI) 25.7 Intake & Output: Intake and Output for Last 24 Hours 01/25/25 01/26/25 01/27/25 23:59 23:59 23:59 Intake Total 550 / 772 872 / 872 Balance 550 / 772 872 / 872 Lab / Micro Data 01/25/25 20:26 01/25/25 20:26 Physical Exam Narrative alert, oriented x3, patient appears moderately anxious, average body habitus and healthy appearing General Appearance: cooperative, well kempt and well developed Orientation / Consciousness: awake, oriented to person, oriented to place and oriented to time HEENT normocephalic, head/scalp atraumatic and moist oral mucous membranes Eyes PERRL, EOMs intact bilaterally and conjunctivae normal Neck supple, no JVD, thyroid normal and no carotid bruits General: trachea midline Resp normal respiratory effort, no retractions, no use of accessory muscles and clear to auscultation bilaterally Auscultation: Negative for rales, rhonchi or wheezes Cardio regular rate, regular rhythm, S1 normal heart sound, S2 normal heart sound, no murmurs, no rub and no gallops GI normal to inspection, nondistended, normoactive bowel sounds, soft to palpation, non-tender and non-distended Extremity no clubbing, cyanosis or edema Skin no rashes or lesions noted General Skin Exam: no breakdown Neuro oriented x3, CN's II-XII intact bilaterally, moves all extremities, no focal motor deficits and no sensory deficits noted Sensorium / Orientation: awake and alert Speech: speech normal Psych Patient appears moderately anxious Assessment & Plan Assessment/Plan (1) Opiate withdrawal: (2) Opiate dependence: PLAN: Plan 1. Opiate withdrawal-patient is moderately symptomatic at this time, she will be seen by addiction high school social studies teacher, she is now getting Subutex #2 polysubstance abuse-complicates care, management, recovery, and prognosis #3 bipolar disorder-patient will remain on her present medication Total clinical time spent by myself addressing the patient's medical issues, reviewing all of her data, and collaborating patient's care team: 25 minutes Charges/Coding Visit Charges Inpatient E&M: 20604 Subs Hosp L1
[2025-01-27] MEDS: hydrOXYzine PAM 25 MG Capsule 75 MG PO (21:35)
[2025-01-28 04:53] VITALS: BP 138/84; PULSE 57; RESP 16; TEMP 37; O2SAT 97
[2025-01-28] MEDS: hydrOXYzine PAM 25 MG Capsule 75 MG PO (04:58)
[2025-01-28 07:40] VITALS: O2SAT 94
[2025-01-28 07:57] VITALS: BP 136/84; PULSE 60; RESP 18; TEMP 37.1; O2SAT 100
--- NOTE | 2025-01-28 11:09 | DCINST_ITS ---
Discharge Instructions DC O2, CPAP, BIPAP needs Home O2 Discharge instructions: No Dressing / Incision Discharge Activity: Return to Normal Activity Weight Bearing Status: Full weight bearing Follow Up Care Test Results: Test results from this visit will be discussed in further detail at your follow- up appointment, if applicable. Discharge Plan Admission Admit Date/Time: 01/25/25 22:03 Primary Reason for Your Visit: opiate detox Attending Provider: Derrek Nguyen Primary Care Provider: Ida Thakkar Consulting Providers: Yasmani Yanes Instructions Additional Instructions / Restrictions: Follow-up with outpatient detox services to remain off opiates Discharge Orders/Prescriptions Prescriptions: New quetiapine [Seroquel] 50 mg tablet 50 mg PO DAILY Qty: 30 0RF Continued citalopram 40 MG tablet 60 mg PO DAILY topiramate 25 MG tablet 50 mg PO BID PRN PRN (Reason: Headache) Patient Comments: TAKE 1 TABLET once EVERY NIGHT FOR 1 WEEK then TAKE 1 TABLET TWICE DAILY FOR 1 WEEK then start 50 MG TABLETS ferrous sulfate 325 MG tablet 325 mg PO BID Patient Comments: TAKE 1 TABLET TWICE DAILY famotidine 40 mg tablet 40 mg PO QHS Patient Comments: TAKE 1 TABLET BY MOUTH EVERY EVENING montelukast 10 mg tablet 10 mg PO QHS Patient Comments: TAKE 1 TABLET BY MOUTH EVERY NIGHT Referrals / Follow Up: Ida Thakkar MD [Primary Care Provider] - Within 2 Weeks Disposition Disposition (needs filled in before D/C Order can be placed): Home, Self Care
--- NOTE | 2025-01-28 11:17 | DS.PCM_ITS ---
Providers Date of Admission: 01/25/25 Date of Discharge: 01/28/25 Primary Care Physician: Dr. Ida Thakkar MD Reason For Visit: OPIATE DETOX Diagnosis Discharge Diagnosis (1) Opiate withdrawal: Status: Resolved Code(s): F11.93 - Opioid use, unspecified with withdrawal (2) Opiate dependence: Status: Acute Code(s): F11.20 - Opioid dependence, uncomplicated Plan 1. Opiate withdrawal-patient is moderately symptomatic at this time, she will be seen by addiction social and human services assistant, she is now getting Subutex #2 polysubstance abuse-complicates care, management, recovery, and prognosis #3 bipolar disorder-patient will remain on her present medication Total clinical time spent by myself addressing the patient's medical issues, reviewing all of her data, and collaborating patient's care team: 25 minutes Medications at Discharge Home Medications citalopram 40 mg tablet 60 mg PO DAILY ANXIETY/DEPRESSION 03/05/19 ferrous sulfate 325 mg (65 mg iron) tablet 325 mg PO BID ANEMIA 03/11/19 topiramate 25 mg tablet 50 mg PO BID PRN PRN Headache 03/11/19 famotidine 40 mg tablet 40 mg PO QHS ACID REFLUX 03/01/23 montelukast 10 mg tablet 10 mg PO QHS ALLERGIES 03/01/23 quetiapine 50 mg tablet (Seroquel) 50 mg PO DAILY #30 tabs 01/28/25 Hospital Course Operations None Procedures None Summary of Care Provided Minutes Spent on Discharge: 31 Hospital Course: This 54-year-old black female was seen in the emergency room at [facility] requesting services for opiate detox. Patient admitted to snorting fentanyl on a daily basis. Patient's tox screen was positive for opiates, fentanyl, and cocaine. Patient was admitted to [place] [address], orders were entered using the opiate detox order set, patient was seen by addiction social and human services assistant and agreed to follow-up in an outpatient program after discharge from the hospital. Patient had minimal withdrawal symptoms during her hospitalization. On 01/28/2025, patient was seen and examined: On examination she appeared in good health and spirits, she does not appear to be in any distress. Vital signs as documented. Skin warm and dry and without overt rashes. Neck without JVD, thyroid appears normal, trachea is midline, neck is supple. Lungs clear, normal air movement was noted. Heart exam notable for regular rhythm, normal sounds and absence of murmurs, rubs or gallops. Abdomen unremarkable and without evidence of organomegaly, masses, or abdominal aortic enlargement, bowel sounds are present in all 4 quadrants, no abdominal tenderness was noted. Extremities nonedematous, no cyanosis was noted, no clubbing was noted. Neuro: Cranial nerves II through XII are grossly intact, no focal motor deficits were noted, sensation to light touch and pinprick is intact, motor exam 5/5 throughout. Psych: Patient is alert and oriented x3, she does not appear anxious or depressed, she does not appear agitated. Patient was discharged in stable condition on 01/28/2025. Weight / BMI Weight Weight: 72.5 kg Body Mass Index (BMI) 25.7 ABG / Lab / Microbiology Data 01/25/25 20:26 01/25/25 20:26 D/C Instructions Weight Bearing Status: Full weight bearing DC O2, CPAP, BIPAP Needs Home O2 Discharge instructions: No Meaningful Use Info Meaningful Use Meaningful Use Diagnoses (Choose all that apply): None applicable Discharge Plan Admission Admit Date/Time: 01/25/25 22:03 Primary Reason for Your Visit: opiate detox Attending Provider: Derrek Nguyen Primary Care Provider: Ida Thakkar Consulting Providers: Yasmani Yanes Instructions Additional Instructions / Restrictions: Follow-up with outpatient detox services to remain off opiates Discharge Orders/Prescriptions Prescriptions: New quetiapine [Seroquel] 50 mg tablet 50 mg PO DAILY Qty: 30 0RF Continued citalopram 40 MG tablet 60 mg PO DAILY topiramate 25 MG tablet 50 mg PO BID PRN PRN (Reason: Headache) Patient Comments: TAKE 1 TABLET once EVERY NIGHT FOR 1 WEEK then TAKE 1 TABLET TWICE DAILY FOR 1 WEEK then start 50 MG TABLETS ferrous sulfate 325 MG tablet 325 mg PO BID Patient Comments: TAKE 1 TABLET TWICE DAILY famotidine 40 mg tablet 40 mg PO QHS Patient Comments: TAKE 1 TABLET BY MOUTH EVERY EVENING montelukast 10 mg tablet 10 mg PO QHS Patient Comments: TAKE 1 TABLET BY MOUTH EVERY NIGHT Referrals / Follow Up: Ida Thakkar MD [Primary Care Provider] - Within 2 Weeks Disposition Disposition (needs filled in before D/C Order can be placed): Home, Self Care Charges/Coding Visit Charges Inpatient E&M: 93841 Disch Hosp >30min
[2025-01-28 12:36] VITALS: BP 126/75; PULSE 62; RESP 18; TEMP 36.6; O2SAT 99
== END 2025-01-28 14:07 | disposition home or self-care (01) | DRG 773 ==
LOC: ED 20:29 → MS3 22:46
PROVIDERS: Admitting Provider Hospitalist; Emergency Provider Emergency Medicine; PCP Internal Medicine; Visit Provider Internal Medicine
DX: F11.23 Opioid dependence with withdrawal (principal); F31.9 Bipolar disorder, unspecified; D50.9 Iron deficiency anemia, unspecified; F14.10 Cocaine abuse, uncomplicated; F12.90 Cannabis use, unspecified, uncomplicated; F17.290 Nicotine dependence, other tobacco product, uncomplicated; F41.9 Anxiety disorder, unspecified; K21.9 Gastro-esophageal reflux disease without esophagitis; J30.9 Allergic rhinitis, unspecified; Z90.49 Acquired absence of other specified parts of digestive tract
CPT/HCPCS: 80053; 80307; 82077; 83036; 84703; 85025; 99283

== ENCOUNTER → 2025-03-29 | Outpatient (CLI) | payer MEDICAID, SELFPAY ==
[2025-03-29 16:20] LABS: Mucous, Urine 0 SEEN /hpf (<or=2+); Red Blood Cells-Urine 0 SEEN /hpf (0-5)
[2025-03-29 16:27] LABS: Color, Urine Yellow (Yellow); Glucose, Dipstick Normal (Normal); Ketone-Dipstick Negative (Negative); Leukocyte Esterase-Dipstick 100 /ul (Negative); Nitrite-Dipstick Negative (Negative); Occult Blood-Urine Negative /ul (Negative); Protein-Dipstick 15 mg/dl (Negative); Specific Gravity, Urine 1.010 (1.002-1.030); Urine Bilirubin Dipstick Negative (Negative)
[2025-03-29 16:44] LABS: Squamous Epithelial Cells - UA 5-10 SEEN /hpf (5-10)
== END | disposition home or self-care (01) ==
PROVIDERS: PCP Internal Medicine; Referring Provider Nurse Practitioner Family; Visit Provider Nurse Practitioner Family
DX: R30.0 Dysuria (principal); Z11.3 Encounter for screening for infections with a predominantly sexual mode of transmission
CPT/HCPCS: 81001; 87086; 87088

== ENCOUNTER → 2025-06-20 | Outpatient (CLI) | payer MEDICAID, SELFPAY ==
[2025-06-20 17:09] LABS: Hematocrit 35.5 % (37-47); Hemoglobin 11.8 g/dL (12.0-15.0); Immature Granulocytes Count 0.020 X10^3/uL (0.0-0.0); Mean Corp Hgb Conc 33.2 g/dL (32-36); Mean Corpuscular Volume 86.6 fL (81-99); Mean Platelet Vol. 9.5 fl (6.2-12.0); NRBC Flagged by Analyzer 0 % (0-5); Platelet Count 309 K/mm3 (150-450); RBC Distribution Width CV 13.4 % (11.6-14.6); RBC Distribution Width SD 42.5 fl (35.1-43.9); Red Blood Count 4.10 M/mm3 (4.2-5.4); White Blood Count 3.8 K/mm3 (4.4-11.0)
[2025-06-20 17:25] LABS: AST(SGOT) 22 U/L (<=31); Alanine Aminotransfer ALT/SGPT 22 U/L (<=34); Albumin, Serum 4.1 g/dL (3.5-5.0); Alkaline Phosphatase 72 U/L (35-104); Amylase 91 U/L (28-100); Anion Gap 11 (5-15); BUN 8 mg/dL (4-19); BUN/Creat Ratio 10.1 RATIO (10-20); Calcium,Total 9.2 mg/dL (7.6-11.0); Carbon Dioxide 25.0 mmol/L (21.0-32.0); Chloride 106 mmol/L (98-108); Globulin 2.9 g/dL (2.2-4.2); Glucose 104 mg/dL (70-99); Lipase 34 U/L (13-75); Potassium 3.9 mmol/L (3.3-5.1)
== END | disposition home or self-care (01) ==
LOC: VSLAB 11:53
PROVIDERS: PCP Internal Medicine; Referring Provider Nurse Practitioner Family; Visit Provider Nurse Practitioner Family
DX: R10.9 Unspecified abdominal pain (principal)
CPT/HCPCS: 36415; 80053; 81001; 82150; 83690; 85025; 87086; 87088

== ENCOUNTER → 2025-06-20 | Outpatient (CLI) | payer MEDICAID, SELFPAY ==
[2025-06-20 14:14] LABS: Mucous, Urine 0 SEEN /hpf (<or=2+)
--- OUTSIDE RECORDS SUMMARY | 2025-06-20 16:47 | XMS RPT_ITS | CCD ---
Author Organization [facility] Care Team Providers [employer] Director Name Role Phone Pro Ellis Unavailable Unavailable Pro Ellis Unavailable Unavailable Pro Ellsi Unavailable Unavailable Parran, Nba Unavailable Unavailable Parran, Nba Unavailable Unavailable Unavailable, Family Physician Unavailable Un available Unavailable, Family Physician Unavailable Un available Parran, Nba Unavailable Unavailable Parran, Nba Unavailable Unavailable Unavailable, Family Physician Unavailable Un available Unavailable, Family Physician Unavailable Un available Susan Sommers Attending Unavailable Karim, Mohammad Freddie Primary Care Unavaila ble Susan Sommers Attending Unavailable Karim, Mohammad Freddie Primary Care Unavaila Susan Keith Attending Unavailable Karim, Mohammad Freddie Primary Care Unavaila MCKENZIE Pittman Attending Unavailable Tereso, Shira Referring Unavailable Tereso, [...] Kim Unavailable Unavailable Israel Michelle Unavailable Unavailable Benyaminov, Farzaneh Unavailable Unavailable Edison, Mireya Y Unavailable Unavailable PROVIDER, UNKNOWN Attending Unavailable PROVIDER, UNKNOWN Admitting Unavailable Edison, Mireya Y Unavailable Unavailable Unavailable MEGHNA HERNANDEZ Attending Unava ilable SHIRA RIDER Primary Care Unavailable Dr. Fabio Mcbride Emergency Provider Dr. Shira Rider Primary Care Provider Dr. Kristen Caraballo Admit Provider Dr. Kristen Caraballo Other Provider Dr. Taylor Alarcon Attending Provider Dr. Taylor Alarcon Other Provider Unavailable Primary Care Provider UnavailJEN Perez Referring Unavailable Shira Rider MD Primary Care Provider Roseline Thakkar DO Primary Care Provider Unavailable Primary Care Provider Unavailsalvador AUGUSTE, MS. VERN NASCIMENTO Primary Care Unavai mauro SOTO MD, CARLTON Attending Unavailable ANNY MARK MD Attending Unavailable ROBY SENA Primary Care Unavailable CARLTON SOTO MD Attending Unavailable ROBY SENA Primary Care Unavailable Shira Rider MD Primary Care Provider [phone] SHIRA RIDER Primary Care Unavailable TRISTAN MCCLELLAN Attending Unavailable ARIANE, ROSELINE Primary Care Unavailable AMANDA CANELA Attending Unavailable ARIANE, ROSELINE Primary Care Unavailable RAMYA SEGOVIA Attending Unavailable ARIANE, ROSELINE Primary Care Unavailable ARIANE, ROSELINE Attending Unavailable JENNIFER ROCHA Attending Unavailable ARIANE, ROSELINE Primary Care Unavailable Ariane HARRELL, Dr. Roseline Ambrosio Primary Care Provid er Dr. Abdoul Morales MD Emergency Provider [phone] Yasmani Yanes DO Admit Provider Dr. Yasmani Yanes DO Attending Provider Dr. Yasmani Yanes DO Other Provider Dr. Alla Nguyen DO Attending Provider Wendy CLAROS, Dr. Anglin Other Provider Yasmani Yanes Consulting Unavailable Alla Nguyen Attending Unavailable Yasmani Yanes Admitting Unavailable Ariane, Roseline L Primary Care Unavailabl e Tereletsky, Alla Consulting Unavailable Yasmani Yanes Attending Unavailable Ariane, Roseline L Primary Care Unavailabl e Aurelia Byrd Attending Unavailable Aurelia Byrd Referring Unavailable Yasmani Yanes Consulting Unavailable Tereletsky, Alla Attending Unavailable Ariane, Roseline L Primary Care Unavailabl e Joaquín, Yasmani Admitting Unavailable Ariane HARRELL, Dr. Roseline Ambrosio Primary Care Physic fe Dr. Abdoul Morales MD Emergency Department Physician Joaquín CLAROS, Dr. Gruber Admitting Physician Joaquín CLAROS, Dr. Gruber Nurse Practitioner Wendy CLAROS, Dr. Anglin Attending Physician Wendy CLAROS, Dr. Anglin Nurse Practitioner Carson [employer]INCIPAL WEB DEVELOPER-CAurelia Attending Physician Carson [employer]INCIPAL WEB DEVELOPER-CAurelia Referring Provider Mireya Hogan MD Primary Care Provider ANNITA FINN Attending Unavailable EDISON, MIREYA Y Primary Care Unavailable GURPREET SMART Attending Unavailable EDISON, MIREYA Y Primary Care Unavailable Allergies Allergy Classification Reported Allergen(s) Allergy Type Date of Onset Reaction(s) Facility (20 sources) doxycycline; Translations: [DOXYCYCLINE] Drug Allergy 12-18-19 15 Rash, Itching [facility] Repository (20 sources) ibuprofen; Translations: [IBUPROFEN] Drug Allergy 12-11-19 15 Nausea Only [facility] Repository (20 sources) Latex; Translations: [LATEX] Propensity to adverse reactions to drug (disorder) 12-02-19 14 Rash, Itching, Nausea Only, Nausea And Vomiting [facility]ository (20 sources) naproxen; Translations: [NAPROXEN] Drug Allergy 09-26-19 15 Swelling [facility] (20 sources) Penicillins; Translations: [PENICILLINS] Propensity to adverse reactions to drug (disorder) 10-16-19 01 Rash, Shortness of Breath, Itching, Swelling, Hives [facility] Repository (2 sources) Amoxicillin; Translations: [Amoxil CAPS] Drug Allergy [facility] Work Phone: (2 sources) Ampicillin; Translations: [Ampicillin CAPS] Drug Allergy [facility] Work Phone: (2 sources) Doxycycline; Translations: [Doxycycline Hyclate CAPS] Drug Allergy [facility] Work Phone: (2 sources) Naproxen; Translations: [Naproxen TABS] Drug Allergy [facility] Work Phone: (2 sources) Latex Gloves MISC; Translations: [Latex Gloves MISC] drug allergy [facility] Work Phone: (1 source) Penicillin; Translations: [PENICILLIN G] Drug Allergy 10-16-19 01 [facility] Repository (20 sources) Codeine; Translations: [CODEINE] Drug Allergy 09-15-19 18 Swelling, Itching [facility] (5 sources) Nonsteroidal Anti-inflammatory Compounds Propensity to adverse reactions 03-11-20 19 Upset Stomach [facility] (5 sources) Sulfamethoxazole Drug Allergy 03-11-20 19 Rash [facility] (5 sources) Trimethoprim Drug Allergy 03-11-20 19 Rash [facility] (6 sources) lurasidone; Translations: [LURASIDONE] Drug Allergy 05-12-20 23 Shortness of Breath, Palpitations [facility] (4 sources) Sertraline; Translations: [SERTRALINE] Drug Allergy 05-12-20 23 Shortness of Breath [facility] (20 sources) Sulfamethoxazole / Trimethoprim; Translations: [SULFAMETHOXAZOLE-T RIMETHOPRIM] Drug Allergy 04-12-20 17 Rash, Hives [facility] (4 sources) Vancomycin; Translations: [VANCOMYCIN] Drug Allergy 05-12-20 23 GI Upset, Itching [facility] (20 sources) Aluminum aspirin Drug Allergy 07-04-20 15 Unknown [facility] (20 sources) lurasidone Drug Allergy 09-17-19 18 [facility] (20 sources) penicillAMINE Drug Allergy 05-28-20 22 Swelling [facility] (20 sources) Prochlorperazine Drug Allergy 03-13-20 19 Unknown [facility] (1 source) Codeine Drug Allergy 01-26-20 25 [facility] (1 source) NSAIDs Drug allergy (disorder) 01-26-20 25 [facility] (1 source) Sulfamethoxazole Drug Allergy 01-26-20 25 [facility] (1 source) Trimethoprim Drug Allergy 01-26-20 25 [facility] (2 sources) Bupivacaine / EPINEPHrine; Translations: [BUPIVACAINE-EPINEP HRINE BITART] Drug Allergy 04-25-20 25 [facility] Work Phone: Medications Current Medications Medication Drug Class(es) Dates Sig (Normalized) Sig (Original) [id number] 200 actuat albuterol 0.09 mg/actuat metered dose inhaler (20 sources) beta2-Adrenergic Agonist Start: 03-28-2024 take 2 puff(s) by inhalation every four hours as needed for wheezing albuterol 108 (90 Base) MCG/ACT inhaler Inhale 2 puffs every 4 hours as needed for wheezing. 18 g 11 03/28/2024 Active take 2 puff(s) by in halation every four hours for wheezing albuterol 90 mcg/actuation inhaler Inhale 2 puffs every 4 hours if needed for wheezing. Active End: 03-28-2024 albuterol 108 (90 Base) [...] by mouth once daily amLODIPine (Norvasc) 5 mg tablet Take 1 tablet (5 mg) by mouth once daily. 06/06/2024 06/06/2025 Active ARIPiprazole 15 mg oral tablet (1 source) Atypical Antipsychotic Start: 04-06-2025 ARIPiprazole (Abilify) 15 mg tablet 1 tablet (15 mg). 04/06/2025 Active biotin 5 mg oral capsule (1 source) biotin 5 mg capsule Take 1 capsule (5 mg) by mouth. Active 1.5 ml buprenorphine 200 mg/ml prefilled syringe (1 source) Partial Opioid Agonist Start: 04-10-2025 Sublocade 300 mg/1.5 mL injection 1.5 mL (1 each). 04/10/2025 Active buprenorphine 4 mg / naloxone 1 mg sublingual film (17 sources) Partial Opioid Agonist, Opioid Antagonist Start: 02-14-2025 buprenorphine-nal oxone (Suboxone) 4-1 mg per sublingual film 02/14/2025 Active Start: 03-22-2024 buprenorphine- naloxone (Suboxone) 8-2 MG per sublingual film DISSOLVE 1 (ONE) FILM UNDER THE TONGUE EVERY MORNING, ONE-HALF film EVERY EVENING, and ONE-HALF film AT BEDTIME 03/22/2024 Active cetirizine hydrochloride 10 mg oral tablet (1 source) Histamine-1 Receptor Antagonist Start: 02-10-2025 cetirizine (ZyrTEC) 10 mg tablet 1 tablet (10 mg). 02/10/2025 Active ciprofloxacin 500 mg oral tablet (2 sources) Quinolone Antimicrobial Start: 02-20-2025 ciprofloxacin (Cipro ) 500 mg tablet 1 tablet (500 mg). 02/20/2025 Active Start: 03-28-2024 End: 04-04-2024 take 1 tablet by mouth twice daily ciprofloxacin (Cipro) 500 MG tablet Indications: Dysuria Take 1 tablet (500 mg) by mouth 2 times daily for 7 days. 14 tablet 03/28/2024 04/04/2024 Active cyclobenzaprine hydrochloride 5 mg oral tablet (1 source) Muscle Relaxant Start: 02-13-2025 cyclobenzaprin e (Flexeril) 5 mg tablet 1 tablet (5 mg). 02/13/2025 Active dicyclomine hydrochloride 20 mg oral tablet (1 source) Anticholinergic Start: 02-10-2025 dicyclomine (B entyl) 20 mg tablet 1 tablet (20 mg). 02/10/2025 Active doxycycline hyclate 100 mg oral capsule (4 sources) Tetracycline-class Drug Start: 10-12-2024 doxycycline (Vibramycin) 100 mg capsule Take 1 capsule (100 mg) by mouth. 10/12/2024 Active Escitalopram (3 sources) Serotonin Reuptake Inhibitor escitalopram oxalate (LEXAPRO ORAL) Take by mouth. Active escitalopram oxa late (LEXAPRO ORAL) Take by mouth. 0 Active Comment on above: Take by mouth. famotidine 20 mg oral tablet (20 sources) Histamine-2 Receptor Antagonist Start: 02-09-2025 famotidine (Pepcid) 20 mg tablet 1 tablet (20 mg). 02/09/2025 Active Start: 11-12-2023 End: 11-11-2024 take 0.5 tablet by mouth twice daily [...] tablet 0 07/08/2023 11/12/2023 Discontinued (Reorder) Start: 03-01-2023 End: 03-28-2025 take 1 tablet by mouth at bedtime Start: 05-25-2022 End: 07-07-2023 famotidine (PEPCID) 40 mg ta blet ferrous sulfate 325 mg oral tablet (20 sources) Start: 02-27-2016 take 1 tablet by peter th twice daily Start: 01-29-2016 End: 11-11-2024 take 1 tablet by mouth once daily at breakfast FeroSul 325 (65 Fe) MG tablet Indications: Anemia, unspecified type Take 1 tablet (325 mg) by mouth daily (with breakfast). 90 tablet 3 11/23/2024 Active hydrOXYzine pamoate 25 mg oral capsule (15 sources) Antihistamine Start: 03-16-2025 hydrOXYzine pa moate (Vistaril) 25 mg capsule 1 capsule (25 mg). 03/16/2025 Active Start: 03-05-2019 End: 01-26-2025 take 1 capsule by mouth once daily Hydroxyzine Pamoate 50 MG capsule Discontinued 50 mg PO DAILY March 05, 2019 12:00am January 26, 2025 12:33am ANXIETY ibuprofen 800 mg oral tablet (1 source) [...] End: 11-11-2024 take 1 tablet by mouth at bedtime permethrin 50 mg/ml topical cream (20 sources) Pyrethroid Start: 10-26-2023 End: 11-12-2023 permethrin (Elimite) 5 % cream Indications: Rash THOROUGHLY MASSAGE INTO SKIN FROM HEAD TO SOLES OF FEET ONE time. LEAVE ON FOR 8-14 Hours and THEN REMOVE BY THOROUGH WASHING. 60 g 3 11/12/2023 Active polyethylene glycol 3350 51181 mg powder for oral solution (20 sources) [...] tab daily for 3 days with food. QUEtiapine 50 mg oral tablet (9 sources) Atypical Antipsychotic Start: 01-28-2025 take 1 tablet by mouth once daily Start: 03-05-2019 End: 03-01-2023 take 1 tablet by mouth at bedtime Quetiapine 100 MG tablet Discontinued 100 mg PO AT BEDTIME March 05, 2019 12:00am March 01, 2023 3:18am Start: 07-14-2018 take 1 tablet by peter once daily at bedtime QUEtiapine Fumarate 200 MG Oral Tablet TAKE 1 TABLET EVERY DAY AT BEDTIME Quantity: 30 Refills: 3 Ordered: 14-Jul-2018 Farzaneh Billings PA-C Start : 14-Jul-2018 Active selenium sulfide 22.5 mg/ml medicated shampoo (20 sources) Start: 09-17-2023 End: 11-12-2023 Selenium Sulfide 2.25 % sham poo Indications: Scalp lesion 1 luther, Topical, Q3DAYS, # 180 mL, Refill(s) 0, Date: 09/17/23 6:46:00 PM EST 180 mL 3 11/12/2023 Active topiramate 25 mg oral tablet (20 sources) Start: 04-05-2025 topiramate (To pamax) 25 mg tablet 1 tablet (25 mg). 04/05/2025 Active Start: 11-11-2023 End: 03-28-2025 take 1 tablet by mouth twice daily topiramate (Topamax) 100 MG tablet Indications: Bipolar I disorder (HCC) Take 1 tablet (100 mg) by mouth 2 times daily. 60 tablet 11 03/28/2024 03/28/2025 Active Start: 04-08-2023 topiramate (TO PAMAX) 25 mg tablet 04/08/2023 Active Start: 03-11-2019 take 2 tablets by mo uth twice daily as needed for headache Start: 03-11-2019 take 50 mg by mouth twice daily as needed Topiramate Active 50 MG PO TWICE DAILY NEEDED March 11, 2019 12:00am Topiramate 50 MG Oral Tablet Quantity: 0 Refills: 0 Ordered: 19-Nov-2014 DO Active Topiramate 50 MG Oral Tablet Refills: 0 Active traZODone hydrochloride 50 mg oral tablet (1 source) Serotonin Reuptake Inhibitor Start: 04-08-2025 traZODone (Desyrel) 50 mg tablet 1 tablet (50 mg). 04/08/2025 Active 24 hr venlafaxine 37.5 mg extended release oral capsule (3 sources) Serotonin and Norepinephrine Reuptake Inhibitor Start: 08-12-2015 take 1 capsule by mouth every twenty-four hours venlafaxine XR (Effexor-XR) 37.5 mg 24 hr capsule Take 1 capsule (37.5 mg) by mouth. 08/12/2015 Active vitamin b12 5 mg oral capsule (1 source) Vitamin B12 cyanocobalamin, vitamin B-12, 5,000 mcg capsule Take by mouth. Active Completed/Discontinued Medications Medication Drug Class(es) Dates Sig (Normalized) Sig (Original) acetaminophen 325 mg / HYDROcodone bitartrate 5 mg oral tablet (7 sources) Opioid Agonist Start: 03-05-2019 End: 03-08-2019 Hydrocodone-Acetami nophen 1 TABLET tablet Discontinued 1 {tbl} PO EVERY 6 HOURS NEEDED as needed for Pain 10 3 0 March 05, 2019 March 07, 2019 12:00am March 08, 2019 12:07am Flank pain Unspecified abdominal pain Start: 03-05-2019 End: 03-08-2019 take 1 tablet by mouth every six hours as needed Hydrocodone-Acetaminophen Discontinued 1 TABLET PO EVERY 6 HOURS NEEDED 10 3 March 05, 2019 March 08, 2019 12:07am Start: 06-21-2015 take 1 tablet by peter every four to six hours as needed for pain HYDROcodone-Acetaminophen 5-325 MG Oral Tablet TAKE 1 TABLET EVERY 4 TO 6 HOURS NEEDED FOR PAIN. Quantity: 12 Refills: 0 Ordered: 21-Jun-2015 SilverstIsrael schwarz DO Start : 21-Jun-2015 Active ALPRAZolam 1 [...] DAY Quantity: 5 Refills: 0 Ordered: 21-Jun-2015 Silverstine Israel CLAROS Start : 21-Jun-2015 Active Start: 06-21-2015 Orabase 20 % P LUCIEN APPLY SPARINGLY 3 TIMES A DAY Quantity: 5 Refills: 0 Silverstine DO Israel Start : 21-Jun-2015 Active busPIRone hydrochloride 30 mg oral tablet (5 sources) Start: 03-05-2019 End: 03-01-2023 take 1 tablet by mouth once daily Buspirone 30 MG tablet Discontinued 30 mg PO DAILY March 05, 2019 12:00am March [...] 0 Active cephalexin 500 mg oral capsule (5 sources) Cephalosporin Antibacterial Start: 03-11-2019 End: 03-01-2023 take 1 capsule by mouth every eight hours Cephalexin 500 MG capsule Discontinued 500 mg PO EVERY 8 HOURS 30 0 March 11, 2019 12:00am March 01, 2023 1:04am citalopram 20 mg oral tablet (20 sources) Serotonin Reuptake Inhibitor Start: 11-11-2023 End: 11-12-2023 take 1 tablet by mouth once daily citalopram (CeleXA) 20 MG tablet Take 20 mg by mouth daily. 0 11/11/2023 11/12/2023 Discontinued Start: 03-05-2019 Start: 03-05-2019 take 60 mg by mouth [...] 11/12/2023 Discontinued gabapentin 600 mg oral tablet (5 sources) Anti-epileptic Agent Start: 03-05-2019 End: 03-01-2023 take 1 tablet by mouth three times daily at mealtime Gabapentin 600 MG tablet Discontinued 600 mg PO 3 TIMES DAILY WITH MEALS March [...] Active ondansetron 4 mg disintegrating oral tablet (5 sources) Serotonin-3 Receptor Antagonist Start: 03-05-2019 End: 03-01-2023 take 1 tablet by mouth every eight hours as needed for nausea Ondansetron 4 MG tablet Discontinued 4 mg PO EVERY 8 HOURS NEEDED as needed for Nausea March 05, 2019 12:00am March 01, 2023 [...] 60 Refills: 0 Start : 16-May-2016 Active raNITIdine 150 mg oral tablet (7 sources) Histamine-2 Receptor Antagonist Start: 03-05-2019 End: 01-26-2025 take 1 tablet by mouth once daily as needed Ranitidine Hcl 150 MG tablet Discontinued 150 mg PO DAILY as needed for MIGRAINE March 05, 2019 12:00am January 26, 2025 12:34am Start: 04-20-2016 raNITIdine HCl 150 MG TABS Quantity: 30 Refills: 0 Ordered: 20-Apr-2016 DO Start : 20-Apr-2016 Active Start: 04-20-2016 raNITIdine HCl - 150 MG Oral Tablet Quantity: 30 Refills: 0 Start : 20-Apr-2016 Active Problems Active Problems Problem Classification Problem Date Documented Da te Episodic/Chronic Abdominal pain (7 sources) Abdominal pain; Translations: [Abdominal pain, unspecified [...] unspecified] Onset: 1 04-30-2022 Chronic Esophageal disorders (9 sources) Gastroesophageal reflux disease; Translations: [Gastro-esophageal reflux disease without esophagitis] Onset: 4 03-01-2023 Chronic Essential hypertension (20 sources) Essential hypertension; Translations: [Essential (primary) hypertension] Onset: 5 07-07-2023 Chronic Fluid and electrolyte disorders (12 sources) Hypokalemia; Translations: [Hypokalemia] 03-01-2023 Episodic Gastrointestinal hemorrhage (5 sources) Rectal hemorrhage; Translations: [Hemorrhage of anus and rectum] 03-12-2019 Episodic Genitourinary symptoms and ill-defined conditions (4 sources) Dysuria; Translations: [Dysuria] Onset: 4 03-28-2024 Episodic Mood disorders (20 sources) Depressive disorder; Translations: [Depressive disorder, not elsewhere classified] Onset: 0 04-30-2022 Chronic Other ear and sense organ disorders (3 sources) Sensorineural hearing loss, bilateral; Translations: [Sensorineural hearing loss, bilateral] Onset: 9 Chronic Other ear and sense organ disorders (3 sources) Sensorineural hearing loss, bilateral; Translations: [Sensorineural hearing loss, bilateral] 04-25-2025 Chronic Other ear and sense organ disorders [...] [Acute on chronic low back pain] Onset: Chronic Other non-traumatic joint disorders (2 sources) Pain in right knee; Translations: [Pain in right knee] Onset: Episodic Other non-traumatic joint disorders (2 sources) [...] Onset: 0 04-30-2022 Chronic Residual codes; unclassified (7 sources) Noncompliance with medication regimen; Translations: [Noncompliance with medication regimen] 03-01-2023 Episodic Residual codes; unclassified (1 source) FH: Rheumatoid arthritis; Translations: [Family history of arthritis] 10-18-2024 Episodic Residual codes; unclassified (2 sources) Family history of arthritis; Translations: [Family history of arthritis] Onset: 04-02-202 5 Episodic Screening and history of mental health and substance abuse codes (8 sources) H/O: manic depressive disorder; Translations: [Personal [...] dependence] Onset: 7 03-01-2023 Chronic Substance-related disorders (10 sources) Opioid withdrawal; Translations: [Opioid use, unspecified with withdrawal] Onset: 5 03-01-2023 Episodic Thyroid disorders (20 sources) Cyst of thyroid; Translations: [Nontoxic single thyroid nodule] Onset: 5 04-30-2022 Chronic Unclassified (1 source) Acute on chronic low back pain; Translations: [Acute on chronic low back pain] Onset: Urinary tract infections (11 sources) Acute cystitis; Translations: [Urinary tract infectious [...] abscess without sinus] Onset: 03-24-2018 04-30-2022 Episodic Hepatitis (20 sources) Viral hepatitis C; [...] Translations: [Dorsalgia, unspecified] Onset: 04-20-2016 04-30-2022 Episodic Unclassified (6 sources) Readiness finding 01-25-2025 Varicose veins of lower extremity (20 sources) Varicose veins of bilateral lower limbs; Translations: [Asymptomatic varicose veins of bilateral lower extremities] Onset: 07-16-2016 04-30-2022 Episodic NEGATED: Highlighted row has not occurred!Residual codes; unclassified (10 sources) Disease Episodic Results Test Name Value Interpretation Reference Range Facility [id number] 04-02-2025 [facility] Misc. COMMENT Normal . [facility] Comment on above: Order Comment: [id number] NuSwab VAGINITIS PLUS (VG+) Result Comment: Test Ordered: [id number] Nuab Vaginitis Plus (VG+) Test(s) 17991217- Atopobium vaginae; 17991218- BVAB 2; 156240- Megasphaera 1 was developed and its performance characteristics determined by [facility]. It has not been cleared or approved by the Food and Drug Administration. Test(s) 124610-Hetplja albicans, FRED; 820195- Susan glabrata, FRED was developed and its performance characteristics determined by [employer]. It has not been cleared or approved by the Food and Drug Administration. Atopobium vaginae High - 2 [A ] Score =G Reference Range: . BVAB 2 Low - 0 Score =G Reference Range: . Megasphaera 1 High - 2 [A ] Score =G Reference Range: . Calculate total score by adding the 3 individual bacterial vaginosis (BV) marker scores together. Total score is interpreted as follows: Total score 0-1: Indicates the absence of BV. Total score 2: Indeterminate for BV. Additional clinical data should be evaluated to establish a diagnosis. Total score 3-6: Indicates the presence of BV. Susan albicans, FRED Negative =G Reference Range: Negative Susan glabrata, FRED Negative =G Reference Range: Negative Trich vag by FRED Negative =G Reference Range: Negative Chlamydia trachomatis, FRED Negative =G Reference Range: Negative Neisseria gonorrhoeae, FRED Negative =G Reference Range: Negative Performed at: =[address] [id number] Marketing Rotation Associate: Rubina Wakefield MD, Phone: [phone] Performed at: [address] [id number] Marketing Rotation Associate: Alistair Triana PhD, Phone: [phone] Performed By: #### L 3410.9992 #### [facility] [facility] [place], [address] Urine Cultureon 04-01-2025 [facility] Mixed Gram Positive Organisms [place] Count 11,000-25,000 MIXC Mixed contaminants. Submit a new specimen if indicated. Normal [facility] Comment on above: Performed By: #### M 100.2200, L400.0001 #### [facility] [address] [place], [address] Amorphous sediment detection in urine sediment by light microscopyOrdered By: Aurelia Byrd on 03-29-2025 Amorphous sediment LM Ql (Urine sed) 2+ PHOS [facility] Bilirubin Test strip Ql (U)O rdered By: Aurelia Byrd on 03-29-2025 Bilirubin Ql (U) Negative Negative [facility] Ketones Test strip Ql (U)Ord ered By: Aurelia Byrd on 03-29-2025 Ketones Ql (U) Negative Negative [facility] Microscopic analysis of urin e for red blood cells (RBC)Ordered By: Aurelia Byrd on 03-29-2025 Microscopic analysis of urine for red blood cells (RBC) 0 SEEN /hpf 0-5 [facility] Mucus LM Ql (Urine sed)Order ed By: Aurelia Byrd on 03-29-2025 Mucus Ql (Urine sed) 0 SEEN /hpf [facility] Nitrite Test strip Ql (U)Ord ered By: Aurelia Byrd on 03-29-2025 Nitrite Ql (U) Negative Negative [facility] Protein Test strip Ql (U)Ord ered By: Aurelia yBrd on 03-29-2025 Protein Ql (U) 15 mg/dl High Negative [facility] Squamous epithelial cells de tection in urine sediment by light microscopyOrdered By: Aurelia Byrd on 03-29-2025 Epithelial cells.squamous LM Ql (Urine sed) 5-10 SEEN /hpf 5-10 [facility] Urinalysis, Completeon 03-29 AMORPHOUS 2+ PHOS Normal [facility] Comment on above: Order Comment: Urine , Random Performed By: #### M 100.2200, L400.0001 #### [facility] [address] [place], [address] EPI,SQUAMOUS 5-10 SEEN Normal 5-10 [facility] Comment on above: Order Comment: Urine , Random Performed By: #### M 100.2200, L400.0001 #### [facility] [address] [place], [address] WBC 0-5 SEEN Normal 0-5 [facility] Comment on above: Order Comment: Urine , Random Performed By: #### M 100.2200, L400.0001 #### [facility] [address] [place], [address] BACTERIA 0 SEEN Normal None Seen [facility] Comment on above: Order Comment: Urine , Random Performed By: #### M 100.2200, L400.0001 #### [facility] [address] [place], [address] Mucus Ql (Urine sed) 0 SEEN Normal [facility] Comment on above: Order Comment: Urine , Random Performed By: #### M 100.2200, L400.0001 #### [facility] [address] [place], [address] RBC 0 SEEN Normal 0-5 [facility] Comment on above: Order Comment: Urine , Random Performed By: #### M 100.2200, L400.0001 #### [facility] [address] [place], [address] Urine clarityOrdered By: Santi Byrd on 03-29-2025 Clarity (U) Sl. Cloudy Clear [facility] Urine color determinationOrd ered By: Aurelia Byrd on 03-29-2025 Color (U) Yellow Yellow [facility] Urine cultureOrdered By: Santi Byrd on 03-29-2025 Bacteria identified Cx Nom (U) Positive Abnormal [facility] Urine glucose detectionOrder ed By: Aurelia Byrd on 03-29-2025 Glucose Ql (U) Normal mg/dl Normal [facility] Urine leukocyte esterase det ection by dipstickOrdered By: Aurelia Byrd on 03-29-2025 Leukocyte esterase Test strip Ql (U) 100 /ul High Negative [facility] Urine pHOrdered By: Aurelia aguayo on 03-29-2025 pH (U) 7.0 [pH] 5.0 - 8.0 [facility] Urine sediment bacteria coun t by microscopy (number/high power field)Ordered By: Aurelia Byrd on 03-29-2025 Bacteria LM.HPF (Urine sed) [#/Area] 0 /[HPF] None Seen [facility] Urine specific gravity measu rementOrdered By: Aurelia Byrd on 03-29-2025 Specific gravity (U) [Rel density] 1.010 1.002-1.030 [facility] Urine urobilinogen measureme ntOrdered By: Aurelia Byrd on 03-29-2025 Urobilinogen Ql (U) Normal mg/dl Normal [facility] White blood cell countOrdere d By: Aurelia Byrd on 03-29-2025 White blood cell count 0-5 SEEN /hpf 0-5 [facility] Discharge Instructionon 01-16 Discharge Instruction [facility] Medical Records Department [address] [place] [address] Instructions for Home/Discharge Instructions 01/28/25 1109 MR#: [id number] Acct: [id number] Name: KAMLA HEDRICK Rep #: [id number] : 1970 54 From: Alla Nguyen DO PCP: Dr. Roseline Thakkar MD Status:ADM IN Discharge Instructions DC O2, CPAP, BIPAP needs Home O2 Discharge instructions: No Dressing / Incision Discharge Activity: Return to Normal Activity Weight Bearing Status: Full weight bearing Follow Up Care Test Results: Test results from this visit will be discussed in further detail at your follow-up appointment, if applicable. Discharge Plan Admission Admit Date/Time: 01/25/25 22:03 Primary Reason for Your Visit: opiate detox Attending Provider: Alla Nguyen Primary Care Provider: Roseline Thakkar Consulting Providers: Yasmani Yanes Instructions Additional Instructions / Restrictions: Follow-up with outpatient detox services to remain off opiates Discharge Orders/Prescriptions Prescriptions: New quetiapine [Seroquel] 50 mg tablet 50 mg PO DAILY Qty: 30 0RF Continued citalopram 40 MG tablet 60 mg PO DAILY topiramate 25 MG tablet 50 mg PO [...] TAKE 1 TABLET BY MOUTH EVERY NIGHT Referrals / Follow Up: Roseline Thakkar MD [Primary Care Provider] - Within 2 Weeks Disposition Disposition (needs filled in before D/C Order can be placed): Home, Self Care 01/28/25 1117 Alla Andersenvinodemmanuel CC: Dr. Yasmani Yanes DO; Dr. Roseline Thakkar MD Signed Normal [facility] Absolute lymphocyte countOrd ered By: Abdoulalmas Morales on 01-25-2025 Lymphocytes Auto (Unsp spec) [#/Vol] 1.86 10*3/uL 0.83-4.51 [facility] Absolute neutrophil countOrd ered By: Abdoul Morales on 01-25-2025 Neutrophils (Bld) [#/Vol] 3.2 10*3/uL 2.0-7.7 [facility] Alcohol, Blood (Medical)-Ser umon 01-25-2025 SERUM ETOH < 10.1 Normal <=10.0 [facility] Comment on above: Result Comment: This test is for medical purposes only. The legal definition of intoxication varies according to local law. Performed By: #### L 700.6800, L100.0100, L501.9100, L505.5000, L500.4050 ####[facility] [address] [place], [address] Amphetamine detection with 1 000 ng/mL as cutoffOrdered By: [facility] 01-25-2025 Amphetamines Screen method >1000 ng/mL Ql (U) Negative < 200 ng/mL [facility] Anion gap in Serum or Plasma Ordered By: [facility] on 01-25-2025 Anion gap [Moles/Vol] 11 mmol/L 5-15 [facility] Automated lymphocyte count a s percentage of total leukocytesOrdered By: Abdoulalmas Morales on 01-25-2025 Lymphocytes/100 WBC Auto (Unsp spec) 31.9 % - [facility] BUN/creatinine ratioOrdered By: [facility] on 01-25-2025 Urea nitrogen/Creatinine [Mass ratio] 15.0 mg/mg 10- [facility] Basophil percentageOrdered B y: Abdoul Morales on 01-25-2025 Basophils/100 WBC (Bld) 0.7 % 0-1 [facility] Bilirubin, totalOrdered By: Abdoul Morales on 01-25-2025 Bilirubin [Mass/Vol] 0.35 mg/dL 0.00-1.30 [facility] CBC W/Diff, Automatedon 01-16 0-2024 Absolute Lymph 1.86 X10 3/uL Normal 0.83-4.51 [facility] Comment on above: Performed By: #### L 700.6800, L100.0100, L501.9100, L505.5000, L500.4050 #### [facility] [address] [place], [address] Absolute Neut 3.2 X10 3/uL Normal 2.0-7.7 [facility] Comment on above: Performed By: #### L 700.6800, L100.0100, L501.9100, L505.5000, L500.4050 #### [facility] [address] [place], [address] Basophils/100 WBC (Bld) 0.7 % Normal 0-1 [facility] Comment on above: Performed By: #### L 700.6800, L100.0100, L501.9100, L505.5000, L500.4050 #### [facility] [address] [place], [address] Eosinophils/100 WBC (Bld) 7.2 % High 0-5 [facility] Comment on above: Performed By: #### L 700.6800, L100.0100, L501.9100, L505.5000, L500.4050 #### [facility] [address] [place], [address] Erythrocyte distribution width (RBC) [Ratio] 12.6 % Normal 11.6-14.6 [facility] Comment on above: Performed By: #### L 700.6800, L100.0100, L501.9100, L505.5000, L500.4050 #### [facility] [address] [place], [address] Hematocrit (Bld) [Volume fraction] 33.8 % Low 37-47 [facility] Comment on above: Performed By: #### L 700.6800, L100.0100, L501.9100, L505.5000, L500.4050 #### [facility] [address] [place], [address] Hemoglobin (Bld) [Mass/Vol] 11.2 g/dL Low 12.0-15.0 [facility] Comment on above: Performed By: #### L 700.6800, L100.0100, L501.9100, L505.5000, L500.4050 #### [facility] [address] [place], [address] IG% 0.300 Normal 0.0-0.9 [facility] Comment on above: Result Comment: IG% - Immature Granulocytes (promyelocytes, myelocytes and metamyelocytes) > 1% indicates that a LEFT SHIFT is Present. Performed By: #### L 700.6800, L100.0100, L501.9100, L505.5000, L500.4050 #### [facility] [address] [place], [address] Lymphocytes/100 WBC (Bld) 31.9 % Normal 19-41 [facility] Comment on above: Performed By: #### L 700.6800, L100.0100, L501.9100, L505.5000, L500.4050 #### [facility] [address] [place], [address] MCH (RBC) [Entitic mass] 29.1 pg Normal 27.0-32.0 [facility] Comment on above: Performed By: #### L 700.6800, L100.0100, L501.9100, L505.5000, L500.4050 #### [facility] [address] [place], [address] MCHC (RBC) [Mass/Vol] 33.1 g/dL Normal 32-36 [facility] Comment on above: Performed By: #### L 700.6800, L100.0100, L501.9100, L505.5000, L500.4050 #### [facility] [address] [place], [address] MCV (RBC) [Entitic vol] 87.8 fL Normal 81-99 [facility] Comment on above: Performed By: #### L 700.6800, L100.0100, L501.9100, L505.5000, L500.4050 #### [facility] [address] [place], [address] Monocytes/100 WBC (Bld) 5.3 % Normal 0-10 [facility] Comment on above: Performed By: #### L 700.6800, L100.0100, L501.9100, L505.5000, L500.4050 #### [facility] [address] [place], [address] Neutrophils/100 WBC (Bld) 54.6 % Normal 47-70 [facility] Comment on above: Performed By: #### L 700.6800, L100.0100, L501.9100, L505.5000, L500.4050 #### [facility] [address] [place], [address] Nucleated RBC (Bld) [#/Vol] 0 10*3/uL Normal 0-5 [facility] Comment on above: Performed By: #### L 700.6800, L100.0100, L501.9100, L505.5000, L500.4050 #### [facility] [address] [place], [address] Platelet mean volume (Bld) [Entitic vol] 9.4 fL Normal 6.2-12.0 [facility] Comment on above: Performed By: #### L 700.6800, L100.0100, L501.9100, L505.5000, L500.4050 #### [facility] [address] [place], [address] Platelets (Bld) [#/Vol] 306 10*3/uL Normal 150-450 [facility] Comment on above: Performed By: #### L 700.6800, L100.0100, L501.9100, L505.5000, L500.4050 #### [facility] [address] [place], [address] RBC (Bld) [#/Vol] 3.85 10*6/uL Low 4.2-5.4 [facility] Comment on above: Performed By: #### L 700.6800, L100.0100, L501.9100, L505.5000, L500.4050 #### [facility] [address] [place], [address] RDW SD 40.5 fl Normal 35.1-43.9 [facility] Comment on above: Performed By: #### L 700.6800, L100.0100, L501.9100, L505.5000, L500.4050 #### [facility] [address] [place], [address] WBC (Bld) [#/Vol] 5.8 10*3/uL Normal 4.4-11.0 [facility] Comment on above: Performed By: #### L 700.6800, L100.0100, L501.9100, L505.5000, L500.4050 #### [facility] [address] [place], [address] Carbon dioxide, total [Moles /volume] in Central venous bloodOrdered By: Abdoul Morales on 01-25-2025 CO2 [Moles/Vol] 21.8 mmol/L 21.0-32.0 [facility] Chloride assayOrdered By: Krissy Morales on 01-25-2025 Chloride [Moles/Vol] 109 mmol/L High 98-108 [facility] Comprehensive Metabolic Prof ilon 01-25-2025 Albumin [Mass/Vol] 4.0 g/dL Normal 3.5-5.0 [facility] Comment on above: Performed By: #### L 700.6800, L100.0100, L501.9100, L505.5000, L500.4050 #### [facility] [address] [place], [address] Albumin/Globulin [Mass ratio] 1.3 {ratio} Normal 0.9-2.4 [facility] Comment on above: Performed By: #### L 700.6800, L100.0100, L501.9100, L505.5000, L500.4050 #### [facility] [address] [place], [address] ALK PHOS 83 U/L Normal 35-104 [facility] Comment on above: Performed By: #### L 700.6800, L100.0100, L501.9100, L505.5000, L500.4050 #### [facility] [address] [place], [address] ALT [Catalytic activity/Vol] 19 U/L Normal <=34 [facility] Comment on above: Performed By: #### L 700.6800, L100.0100, L501.9100, L505.5000, L500.4050 #### [facility] [address] [place], [address] AST [Catalytic activity/Vol] 21 U/L Normal <=31 [facility] Comment on above: Performed By: #### L 700.6800, L100.0100, L501.9100, L505.5000, L500.4050 #### [facility] [address] [place], [address] Bilirubin [Mass/Vol] 0.35 mg/dL Normal 0.00-1.30 [facility] Comment on above: Performed By: #### L 700.6800, L100.0100, L501.9100, L505.5000, L500.4050 #### [facility] [address] [place], [address] BUN/CRE 15.0 RATIO Normal 10-20 [facility] Comment on above: Performed By: #### L 700.6800, L100.0100, L501.9100, L505.5000, L500.4050 #### [facility] [address] [place], [address] Calcium [Mass/Vol] 9.0 mg/dL Normal 7.6-11.0 [facility] Comment on above: Performed By: #### L 700.6800, L100.0100, L501.9100, L505.5000, L500.4050 #### [facility] [address] [place], [address] Chloride [Moles/Vol] 109 mmol/L High 98-108 [facility] Comment on above: Performed By: #### L 700.6800, L100.0100, L501.9100, L505.5000, L500.4050 #### [facility] [address] [place], [address] CO2 [Moles/Vol] 21.8 mmol/L Normal 21.0-32.0 [facility] Comment on above: Performed By: #### L 700.6800, L100.0100, L501.9100, L505.5000, L500.4050 #### [facility] [address] [place], [address] Creatinine [Mass/Vol] 0.88 mg/dL Normal 0.70-1.20 [facility] Comment on above: Performed By: #### L 700.6800, L100.0100, L501.9100, L505.5000, L500.4050 #### [facility] [address] [place], [address] ECRCL 76.00 ml/min Normal 50-250 [facility] Comment on above: Performed By: #### L 700.6800, L100.0100, L501.9100, L505.5000, L500.4050 #### [facility] [address] [place], [address] GAP 11 Normal 5-15 [facility] Comment on above: Performed By: #### L 700.6800, L100.0100, L501.9100, L505.5000, L500.4050 #### [facility] [address] [place], [address] GFR/1.73 sq M.predicted among non-blacks MDRD (S/P/Bld) [Vol rate/Area] 79 mL/min/{1.73_m2} Normal >60 [facility] Comment on above: Result Comment: mL/m in/1.73m2 CKD-EPI Creatinine Equation (2020) Performed By: #### L 700.6800, L100.0100, L501.9100, L505.5000, L500.4050 #### [facility] [address] [place], [address] Globulin (S) [Mass/Vol] 3.0 g/dL Normal 2.2-4.2 [facility] Comment on above: Performed By: #### L 700.6800, L100.0100, L501.9100, L505.5000, L500.4050 #### [facility] [address] [place], [address] Glucose [Mass/Vol] 143 mg/dL High 70-99 [facility] Comment on above: Performed By: #### L 700.6800, L100.0100, L501.9100, L505.5000, L500.4050 #### [facility] [address] [place], [address] Potassium [Moles/Vol] 4.0 mmol/L Normal 3.3-5.1 [facility] Comment on above: Performed By: #### L 700.6800, L100.0100, L501.9100, L505.5000, L500.4050 #### [facility] [address] [place], [address] Sodium [Moles/Vol] 142 mmol/L Normal 133-145 [facility] Comment on above: Performed By: #### L 700.6800, L100.0100, L501.9100, L505.5000, L500.4050 #### [facility] [address] [place], [address] T PROT 6.9 g/dL Normal 5.9-8.4 [facility] Comment on above: Performed By: #### L 700.6800, L100.0100, L501.9100, L505.5000, L500.4050 #### [facility] [address] [place], [address] Urea nitrogen [Mass/Vol] 13 mg/dL Normal 4-19 [facility] Comment on above: Performed By: #### L 700.6800, L100.0100, L501.9100, L505.5000, L500.4050 #### [facility] [address] [place], [address] Emergency Department Summary on 01-25-2025 Emergency Department Summary [facility] Medical Records Department [address] [place] [address] Emergency Department Summary 01/25/25 MR#: [id number] Acct: [id number] Name: KAMLA HEDRICK Rep #: [id number] : 1970 54 From: Abdoul Morales MD PCP: Dr. Roseline Thakkar MD Status:REG ER Location: ED ADDENDUM by Dr. Abdoul Morales MD on 01/25/25 at [address] Yordan Yanes. Full admit MedSurg for detox 01/25/25 2212 Cosigner Signature (if applicable): cc: Dr. Roseline Thakkar MD * Signed HPI History of Present Illness Chief Complaint: Substance Abuse Detail of Chief Complaint: Opiate addiction Informant: patient Onset/Context/Timing Onset: Month(s) Context: Sudden Onset Timing: Continuous Quality: Takes fatty's . Patient states these are Percocet tablets Current Severity: Moderate Maximum Severity: Moderate Worsened by: States her daughter is using her granddaughters upon Relieved by: Nothing Associated Symptoms Associated Symptoms: Positive for change in mental status and no; Negative for vomiting*, diarrhea*, fever*, rash*, seizure, tremor, palpatations, trauma, sex for drugs*, suicidal ideation o r homicidal ideation Narrative Narrative: Patient is a 54-year-old woman. She was in [facility] detox program 2022. She was clean until the beginning of this year. She states her daughter is using her granddaughters upon. She began using again. She currently using fatty's . Patient does vape. She denies any other drug use. She states when she was younger she used marijuana. 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 She denies any other drug use. She denies alcohol use. Prior similar symptoms: Yes Recent Illness/Hospitalization : No PFSH [facility] Medical History Hepatitis C infection Noncompliance with medication regimen History of bipolar disorder Polysubstance dependence IV drug abuse Bipolar disorder Iron deficiency anemia Chronic anemia Overweight Allergic rhinitis Polysubstance abuse Anxiety and depression GERD (gastroesophageal reflux disease) Home Medications ???Medication ???Instructions ???Recorded ???Last Taken ???Type citalopram 40 mg tablet 60 mg PO DAILY ANXIETY/DEPRESSION 03/05/19 03/11/19 History hydroxyzine pamoate 50 mg capsule 50 mg PO DAILY ANXIETY 03/05/19 0 03/11/19 History ranitidine HCl 150 mg tablet 150 mg PO DAILY PRN MIGRAINE 03/0503/11/19 History ferrous sulfate 325 mg (65 mg 325 mg PO BID ANEMIA 03/11/1902/17 History iron) tablet topiramate 25 mg tablet 50 mg PO BID PRN PRN Headache 02/17 11/04 Unknown History famotidine 40 mg tablet 40 mg PO QHS ACID REFLUX 03/01/23 Unknown History montelukast 10 mg tablet 10 mg PO QHS ALLERGIES 03/01/23 Un known History Allergy/AdvReac Type Severity Reaction Status Date / Time codeine Allergy Itching Verified 01/25/25 19:43 doxycycline Allergy Itching Verified 01/25/25 19:43 latex Allergy Rash Verified 01/25/25 19:43 Penicillins (cillins) Allergy Swelling Verified 01/25/25 19:43 sulfamethoxazole (From Allergy Rash Verified 01/25/25 19:43 Bactrim) trimethoprim (From Bactrim) Allergy Rash Verified 01/25/25 19:43 naproxen AdvReac Upset Verified 01/25/25 19:43 Stomach NSAIDS (Non-Steroidal AdvReac Upset Verified 01/25/25 19:43 Anti-Inflamma Stomach Family History Mother Diabetes Hypertension Rheumatoid arthritis Father Diabetes Cancer Hypertension Surgical History History of tubal ligation Hx of cholecystectomy Social History household members: other details: Her 18 year old daughter lives with her. Smoking Status: Current every day smoker tobacco type: e-cigarettes alcohol intake: never substance use type: crack/cocaine, heroin, opiates and IV drugs ROS ROS ED Constitutional Constitutional ED: Denies chills, fever(s), subjective, sweats or weight loss Eyes Eyes: Denies blurry vision, change in vision or diplopia ENT ENT ED: Denies ear pain, rhinorrhea or sore throat Cardiovascular Cardiovascular: Denies chest pain or palpitations Respiratory/Chest Respiratory/Chest: Denies cough, dyspnea or dyspnea on exertion Gastrointestinal Gastrointestinal: Denies abdominal pain, diarrhea, nausea or vomiting Genitourinary Genitourinary ED: Denies dysuria or urinary frequency Musculoskeletal Musculoskeletal: Denies arthralgias or myalgias Integumentary Denies rash Neurologic Neurologic: Denies headache(s), paresthesias or weakness Psychiatric Psychiatric: Reports other Details: Patient is giddy. Patient needs to be redirected. ; Denies anxiety or depres (more content not included)... Normal [facility] Eosinophil percentageOrdered By: Abdoul Morales on 01-25-2025 Eosinophils/100 WBC (Bld) 7.2 % High 0-5 [facility] Erythrocyte distribution wid th ratioOrdered By: Abdoulalmas Morales on 01-25-2025 Erythrocyte distribution width (RBC) [Ratio] 12.6 % 11.6-14.6 [facility] Erythrocyte distribution wid th standard deviationOrdered By: Abdoulalmas Morales on 01-25-2025 Erythrocyte distribution width (RBC) [Ratio] 40.5 fl 35.1-43.9 [facility] Glomerular filtration rate ( GFR) estimation/1.73 sq m using serum, plasma, or whole bOrdered By: Abdoulalmas Morales on 01-25-2025 GFR/1.73 sq M.predicted among non-blacks MDRD (S/P/Bld) [Vol rate/Area] 79 mL/min/{1.73_m2} >60 [facility] Comment on above: mL/min/1.73m2 CKD-EP I Creatinine Equation (2020) H AND P Exam - [facility] 01-25-2025 H&P Exam - Hospitalist [facility] Medical Records Department [address] [place] [address] H P Exam - Hospitalist 01/25/25 2203 MR#: [id number] Acct: [id number] Name: KAMLA HEDRICK Rep #: [id number] : 1970 54 From: Yasmani Yanes DO PCP: Dr. Roseline Thakkar MD Status:ADM IN [place] [facility] [place] HPI - General General Date of Admission: 01/25/25 Date of Service: 01/25/25 Chief Complaint: Opiate detox HPI Narrative KAMLA HEDRICK, is a 54 F who presented to [facility] ED on 01/25/2025 desiring opiate detox. Patient last went through opiate detox here in 2022. She was clean until the beginning of this year when she began using her family member's Percocet. She currently vapes tobacco as well. Denies other drug use and denies alcohol use. In the ED she was noted to be actively high on opiates. Sinus bradycardia to the 50s and borderline hypotension to the low 100s systolic, otherwise satting in the high 90s on room air at rest. CBC and CMP were benign. Urine tox screen presented positive for opiates, fentanyl and cocaine. Alcohol level negative. Given desire for opiate detox, hospitalist was contacted for admission. I saw the patient at bedside in the ED. Patient remained actively high, was lethargic and somewhat somnolent. She did make appropriate eye contact but her speech was slowed and she was not answering all questions appropriately. She denies any acute pain or discomfort. Will be admitted for further management. [facility] Medical History Hepatitis C infection Noncompliance with medication regimen History of bipolar disorder Polysubstance dependence IV drug abuse Bipolar disorder Iron deficiency anemia Chronic anemia Overweight Allergic rhinitis Polysubstance abuse Anxiety and depression GERD (gastroesophageal reflux disease) Home Medications ???Medication ???Instructions ???Recorded ???Last Taken ???Type citalopram 40 mg tablet 60 mg PO DAILY ANXIETY/DEPRESSION 03/05/19 03/11/19 History hydroxyzine pamoate 50 mg capsule 50 mg PO DAILY ANXIETY 03/05/19 0 03/11/19 History ranitidine HCl 150 mg tablet 150 mg PO DAILY PRN MIGRAINE 03/0503/11/19 History ferrous sulfate 325 mg (65 mg 325 mg PO BID ANEMIA 03/11/1902/17 History iron) tablet topiramate 25 mg tablet 50 mg PO BID PRN PRN Headache 02/17 11/04 Unknown History famotidine 40 mg tablet 40 mg PO QHS ACID REFLUX 03/01/23 Unknown History montelukast 10 mg tablet 10 mg PO QHS ALLERGIES 03/01/23 Un known History Allergy/AdvReac Type Severity Reaction Status Date / Time codeine Allergy Itching Verified 01/25/25 19:43 doxycycline Allergy Itching Verified 01/25/25 19:43 latex Allergy Rash Verified 01/25/25 19:43 Penicillins (cillins) Allergy Swelling Verified 01/25/25 19:43 sulfamethoxazole (From Allergy Rash Verified 01/25/25 19:43 Bactrim) trimethoprim (From Bactrim) Allergy Rash Verified 01/25/25 19:43 naproxen AdvReac Upset Verified 01/25/25 19:43 Stomach NSAIDS (Non-Steroidal AdvReac Upset Verified 01/25/25 19:43 Anti-Inflamma Stomach Family History Mother Diabetes Hypertension Rheumatoid arthritis Father Diabetes Cancer Hypertension Surgical History History of tubal ligation Hx of cholecystectomy Social History household members: other details: Her 18 year old daughter lives with her. Smoking Status: Current every day smoker tobacco type: e-cigarettes alcohol intake: never substance use type: crack/cocaine, heroin, opiates and IV drugs ROS Constitutional Constitutional: Denies chills, fatigue, fever(s) or weakness Cardiovascular Cardiovascular: Denies chest pain Respiratory/Chest Respiratory/Chest: Denies shortness of breath at rest Gastrointestinal Gastrointestinal: Denies abdominal pain Vital Signs Vital Signs Vital Signs: 01/25/25 19:43 01/25/25 20:43 01/25/25 21:00 Temperature 97.2 F L Temperature Source Temporal Pulse Rate 57 L 52 L 50 L Respiratory Rate 16 12 12 Blood Pressure 110/76 101/72 101/72 Blood Pressure Mean 87 81 81 Pulse Ox 99 97 97 Oxygen Delivery Method Room Air Room Air Room Air 01/25/25 22:00 01/25/25 22:02 Temperature 97.6 F L Temperature Source Pulse Rate 12 L 50 L Respiratory Rate 50 H 12 Blood Pressure 99/68 99/68 Blood Pressure Mean 78 78 Pulse Ox 100 100 Oxygen Delivery Method Room Air Weight Weight: 72 kg Body Mass Index (BMI) 25.6 Physical Exam Const alert, no apparent distress and average body habitus Constitutional Narrative: Middle-aged female, actively high o (more content not included)... Normal [facility] Hematocrit Auto (Bld) [Volum e fraction]Ordered By: Abdoul Morales on 01-25-2025 Hematocrit (Bld) [Volume fraction] 33.8 % Low 37-47 [facility] Hemoglobin A1con 01-25-2025 HbA1c (Bld) [Mass fraction] 5.6 % Normal <=5.6 [facility] Comment on above: Result Comment: Norm al < 5.7 % Prediabetic 5.7 - 6.4 % Diabetic >or= 6.5 % Please note range changes. Performed By: #### L 501.9985 #### [facility] [address] [place], [place], [id number] Hemoglobin A1c percentageOrd ered By: Yasmani Yanes on 01-25-2025 HbA1c (Bld) [Mass fraction] 5.6 % <5.7 [facility] Comment on above: Normal < 5.7 % Predi abetic 5.7 - 6.4 % Diabetic >or= 6.5 % Please note range changes. Hemoglobin measurementOrdere d By: Abdoul Morales on 01-25-2025 Hemoglobin (Bld) [Mass/Vol] 11.2 g/dL Low 12.0-15.0 [facility] Immature granulocytes/100 WB C Auto (Bld)Ordered By: Abdoul Morales on 01-25-2025 Immature granulocytes/100 WBC (Bld) 0.300 % 0.0-0.9 [facility] Comment on above: IG% - Immature Granu locytes (promyelocytes, myelocytes and metamyelocytes) > 1% indicates that a LEFT SHIFT is Present. Laboratory - Chemistry and C hemistry - challengeOrdered By: Abdoul Morales on 01-25-2025 AST [Catalytic activity/Vol] 21 U/L <32 [facility] MCV (mean corpuscular volume ) determinationOrdered By: Abdoul Morales on 01-25-2025 MCV (RBC) [Entitic vol] 87.8 fL 81-99 [facility] Mean corpuscular hemoglobin (MCH) determinationOrdered By: Abdoul Morales on 01-25-2025 MCH (RBC) [Entitic mass] 29.1 pg 27.0-32.0 [facility] Mean corpuscular hemoglobin concentration (MCHC) determinationOrdered By: Abdoul Morales on 01-25-2025 MCHC (RBC) [Mass/Vol] 33.1 g/dL 32-36 [facility] Mean platelet volume determi nationOrdered By: Abdoul Morales on 01-25-2025 Platelet mean volume (Bld) [Entitic vol] 9.4 fL 6.2-12.0 [facility] Monocyte percentageOrdered B y: Abdoul Morales on 01-25-2025 Monocytes/100 WBC (Bld) 5.3 % 0-10 [facility] Neutrophil percentageOrdered By: [facility] on 01-25-2025 Neutrophils/100 WBC (Bld) 54.6 % 47-70 [facility] No Panel InformationOrdered By: Abdoulalmas Morales on 01-25-2025 Urine Buprenorphine Qualitative Negative < 200 ng/mL [facility] Urine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 resistant enterococcus (SNOMED CT :306755274 ) Name of Problem: Vancomycin resistant enterococcus ; Recorder: SYSTEM; Confirmation: Confirmed ; Classification: Medical ; Code: 082387288 ; Last Updated: 02/02/2016 06:33 EDT ; [...] PNED ; Probability: 0 ; Diagnosis Code: [id number] Reason for Visit (As Of: 04/13/2024 16:28:23 EDT) Problems(Active) B (more content not included)... Normal [facility] AMB POC URINALYSIS DIP STICK AUTO W/O MICROon 03-28-2024 Bilirubin, UA Negative [facility] Blood, UA Negative [facility] Glucose, UA Negative [facility] Interpretation and review of laboratory results Abnormal [facility] Ketones, UA (mg/dL) Negative Negative mg/dL [facility] Leukocytes, UA Small [facility] Nitrite, UA Negative [facility] pH, UA 7.0 [facility] Protein, UA Negative [facility] Spec Grav, UA 1.020 [facility] Urobilinogen, UA 0.2 [facility] Office Visiton 03-28-2024 Follow-up visit [id number] Kiana Hedrick hebert Martinez 1970 F Date Provider Department Center 03/28/2024 [id number] THAKKAR [facility] Family History Problem Relation Age of [...] Alive Daughter Alive Sister Alive Level of Service:00756 [place] OFFICE/OUTPATIENT ESTABLISHED MOD MDM 30 MIN Reason for Visit and Comments: Rash [357492] - Rash/bumps are not improving. Patient reports rash all over body not going away. (Possibly from roommate) UTI [2857009103] - UTI symptoms. Reports urgency, burning, spasms Discuss Medications [876] - Wants to take Topamax only prn, also wants to increase Pepcid Normal [facility] Progress Noteon 03-28-2024 Progress Note [facility] [address] [facility] [address] [facility] [address] Visit Type: Office Visit PCP: Roseline [...] scabies. Notes she is following with the produce team lead. Has appt with derm on Wednesday. (Dr. [...] cyst 02/01/2015 Objective (more content not included)... 36on 03-15-2024 36 S: Patient spoke wit h [facility] nurse regarding rash B: Onset of symptoms/concern [...] less.) Protocols used: Rash or Redness - [facility] ED Data FRAME CHANGER - Texton 024 ED Data FRAME CHANGER - Text ED Data FRAME CHANGER Entered On: 03/03/2024 11:00 EDT Performed On: 03/03/2024 10:57 EDT by Ramya Stewart RN, ED General Intake Information Information Given By : Patient [place] Coma : Document [place] Coma Scale Problem History : Document Problem [...] History Currently or : Not Applicable Ramya Steawrt RN - 03/03/2024 10:57 EDT Sally Coma Scale Eye Opening : Spontaneously Best Verbal Response : Oriented Best Motor Response : Obeys simple commands [place] Coma Score (Ref) : 15 Ramya Stewart RN - 03/03/2024 10:57 EDT Problem History (As Of: 03/03/2024 11:00:19 EDT) Problems(Active) Bipolar 1 disorder (SNOMED CT :4934718416 ) Name of Problem: Bipolar 1 disorder ; Recorder: Monica Doll RN; Confirmation: Confirmed ; Classification: Patient/Family Stated ; Code: 4718597507 ; Contributor System: [employer] ; Last Updated: 06/10/2016 19:47 EST ; Life Cycle Date: 06/10/2016 ; Life Cycle Status: Active ; Vocabulary: SNOMED CT Crohns disease (SNOMED CT :9019215031 ) Name of Problem: Crohns disease ; Recorder: Zuleika Wagner RN; Confirmation: Confirmed ; Classification: Medical ; Code: 8768399825 ; Contributor System: [employer] ; Last Updated: 01/27/2017 19:25 EDT ; Life Cycle Date: 01/27/2017 ; Life Cycle Status: Active ; Vocabulary: SNOMED CT Methicillin resistant Staphylococcus aureus (SNOMED CT :709198450 ) Name of Problem: Methicillin resistant Staphylococcus aureus ; Recorder: SYSTEM; Confirmation: Confirmed ; Classification: Medical ; Code: 548019501 ; Last Updated: 09/20/2023 06:47 EST ; [...] patient. Opioid use disorder, Severe (SNOMED CT :325162501 ) Name of Problem: Opioid use disorder, Severe ; Recorder: ROBERT MENDOZA DO; Confirmation: Confirmed ; Classification: Medical ; Code: 771653636 ; Contributor System: [employer] ; Last Updated: 03/01/2017 15:02 EDT ; Life Cycle Status: Active ; Responsible Provider: ROBERT MENDOZA DO; Vocabulary: SNOMED CT Posttraumatic stress disorder (SNOMED CT :605338918 ) Name of Problem: Posttraumatic stress disorder ; Recorder: ROBERT MENDOZA DO; Confirmation: Confirmed ; Classification: Medical ; Code: 092381212 ; Contributor System: [employer] ; Last Updated: 03/01/2017 15:02 EDT ; Life Cycle Status: Active ; Responsible Provider: ROBERT MENDOZA DO; Vocabulary: SNOMED CT PTSD (post-traumatic stress disorder) (SNOMED CT :225074148 ) Name of Problem: PTSD (post-traumatic stress disorder) ; Recorder: Monica Doll RN; Confirmation: Confirmed ; Classification: Patient/Family Stated ; Code: 734726481 ; Contributor System: [employer] ; Last Updated: 06/10/2016 19:47 EST ; Life Cycle Date: 06/10/2016 ; Life Cycle Status: Active ; Vocabulary: SNOMED CT Tobacco use disorder, Moderate (SNOMED CT :84929750 ) Name of Problem: Tobacco use disorder, Moderate ; Recorder: ROBERT MENDOZA DO; Confirmation: Confirmed ; Classification: Medical ; Code: 19348295 ; Contributor System: [employer] ; Last Updated: 03/01/2017 15:03 EDT ; Life Cycle Status: Active ; Responsible Provider: ROBERT MENDOZA DO; Vocabulary: SNOMED CT Vancomycin resistant enterococcus (SNOMED CT :294604055 ) Name of Problem: Vancomycin resistant enterococcus ; Recorder: SYSTEM; Confirmation: Confirmed ; Classification: Medical ; Code: 597694226 ; Last Updated: 02/02/2016 06:33 EDT ; [...] ; Clini (more content not included)... Normal [facility] ED Discharge Educationon ED Discharge Education [...] your doctor if you can take an pmdf-njk-vqvtsnt medicine. ? Rest and protect your knee. [...] September 24, 2021 Content Version: 13.3 ? [employer]. Care instructions adapted under license by your healthcare professional. If you have questions about a medical condition or this instruction, always ask your healthcare professional. [employer] disclaims any warranty or liability for your use of this information. Normal [facility] ED Emergency Severity Index Adult-Texton 03-03-2024 ED Emergency Severity Index Adult-Text AIDEN - Adult Entered On: 03/03/2024 11:00 EDT Performed On: 03/03/2024 10:50 EDT by Ramya Stewart RN DCP GENERIC CODE Visit Reason : KNEE PAIN Tracking Triage Date/Time : 03/03/2024 11:00 EDT Tracking Reg Status : Complete Tracking Acuity : [id number] Tracking Group : BRED Ramya Steawrt RN - 03/03/2024 10:57 EDT Normal [facility] ED Patient Summaryon 024 ED Patient Summary [facility] Emergency Department Discharge Instructions [address] [place] [address] (Patient Copy) Name: RYLEYOctober : 1970 Allergies: penicillins; naproxen; ibuprofen; doxycycline; Compazine; Bactrim Diagnosis: Knee injury Visit Date: 03/03/2024 10:43:41 Current Date Time: 03/03/2024 12:07:53 Address: [address] [place] [address] Primary Care Provider: Name: ROBY SENA Emergency Department Care Providers: Primary Physician: ANNY MARK MD Thank you for choosing [facility] for your emergency care. You are [...] Thank you again for allowing the [facility] Emergency Department to care for your medical needs. If you have questions about your care or follow up information please contact us at [phone]. Follow-Up Instructions RYLEYOctober has been given these follow-up instructions: With: Address: When: ALLA KUHN, Orthopedic Surgery [address], [address] [place] [address] Business (1) Within 3 to 5 days Patient Education Materials October has been given the following patient education [...] your doctor if you can take an xgrq-vsc-jbqkqca medicine. ? Rest and protect your knee. [...] and swelling in your leg or groin. [facility] (more content not included)... Normal [facility] ED Physician Reporton 2023 ED Physician [...] complete this note and may contain unintentional church supervisor errors. Discharge/Plan *Discharge Disposition NO DISCHARGE DISPOSITION DOCUMENTED Patient Education Knee Pain or Injury Follow Up With When Contact Information ALLA KUHN, Orthopedic Surgery Within 3 to [address] [address]- Business (1) Additional Instructions: Assessment This Visit Diagnosis [...] acute fr (more content not included)... Normal [facility] ED Progress Noteon ED Progress Note 1050 pt to bred int 2 from waiting rm pt c/o fall yesterday at work and landed on left knee and hit her face c/o continued left knee pain able to ambulate 1200 discharged pt in NAD, instructions given, verbalized understanding encouraged close f/u with dr or return for worsening Normal [facility] ED Triage FRAME CHANGER - Texton 03-03 ED Triage FRAME CHANGER - Text ED Triage FRAME CHANGER Enter ed On: 03/03/2024 10:58 EDT Performed [...] EDT) Problems(Active) Bipolar 1 disorder (SNOMED CT :2197116648 ) Name of Problem: Bipolar 1 disorder ; Recorder: Monica Doll RN; Confirmation: Confirmed ; Classification: Patient/Family Stated ; Code: 2750117617 ; Contributor System: [employer] ; Last Updated: 06/10/2016 19:47 EST ; Life Cycle Date: 06/10/2016 ; Life Cycle Status: Active ; Vocabulary: SNOMED CT Crohns disease (SNOMED CT :3301855327 ) Name of Problem: Crohns disease ; Recorder: Zuleika Wagner RN; Confirmation: Confirmed ; Classification: Medical ; Code: 8573753328 ; Contributor System: [employer] ; Last Updated: 01/27/2017 19:25 EDT ; Life Cycle Date: 01/27/2017 ; Life Cycle Status: Active ; Vocabulary: SNOMED CT Methicillin resistant Staphylococcus aureus (SNOMED CT :797130288 ) Name of Problem: Methicillin resistant Staphylococcus aureus ; Recorder: SYSTEM; Confirmation: Confirmed ; Classification: Medical ; Code: 332378226 ; Last Updated: 09/20/2023 06:47 EST ; [...] patient. Opioid use disorder, Severe (SNOMED CT :344702574 ) Name of Problem: Opioid use disorder, Severe ; Recorder: ROBERT MENDOZA DO; Confirmation: Confirmed ; Classification: Medical ; Code: 715164365 ; Contributor System: [employer] ; Last Updated: 03/01/2017 15:02 EDT ; Life Cycle Status: Active ; Responsible Provider: ROBERT MENDOZA DO; Vocabulary: SNOMED CT Posttraumatic stress disorder (SNOMED CT :887053015 ) Name of Problem: Posttraumatic stress disorder ; Recorder: ROBERT MENDOZA DO; Confirmation: Confirmed ; Classification: Medical ; Code: 955929094 ; Contributor System: [employer] ; Last Updated: 03/01/2017 15:02 EDT ; Life Cycle Status: Active ; Responsible Provider: ROBERT MENDOZA DO; Vocabulary: SNOMED CT PTSD (post-traumatic stress disorder) (SNOMED CT :464037586 ) Name of Problem: PTSD (post-traumatic stress disorder) ; Recorder: Monica Doll RN; Confirmation: Confirmed ; Classification: Patient/Family Stated ; Code: 326769304 ; Contributor System: [employer] ; Last Updated: 06/10/2016 19:47 EST ; Life Cycle Date: 06/10/2016 ; Life Cycle Status: Active ; Vocabulary: SNOMED CT Tobacco use disorder, Moderate (SNOMED CT :81879190 ) Name of Problem: Tobacco use disorder, Moderate ; Recorder: ROBERT MENDOZA DO; Confirmation: Confirmed ; Classification: Medical ; Code: 95659650 ; Contributor System: [employer] ; Last Updated: 03/01/2017 15:03 EDT ; Life Cycle Status: Active ; Responsible Provider: ROBERT MENDOZA DO; Vocabulary: SNOMED CT Vancomycin resistant enterococcus (SNOMED CT :689681602 ) Name of Problem: Vancomycin resistant enterococcus ; Recorder: SYSTEM; Confirmation: Confirmed ; Classification: Medical ; Code: 269238126 ; Last Updated: 02/02/2016 06:33 EDT ; [...] PNED ; Probability: 0 ; Diagnosis Code: [id number] Reason for Visit (As Of: 03/03/2024 10:58:52 E (more content not included)... Normal [facility] XR KNEE LEFT 3 VIEWSon 03-03 [...] DOUGLAS MD Signed Out: 03/03/24 11:32:30 Normal [facility] 36on 02-11-2024 36 Recent Visits Date Type Provider Dept 01/11/24 Office Visit Jennifer Rocha PA-C [facility] 11/12/23 Office Visit Roseline Thakkar DO [facility] Showing recent visits within past 365 days and meeting all other requirements Today's Visits Date Type Provider Dept 02/11/24 Appointment Roseline Thakkar DO [facility] Showing today's visits and meeting [...] BY THOROUGH WASHING. Provider: Roseline Thakkar DO Repair Report #[id number] - [place], [place] - [address] [place] [address] Repair Report #[id number] - [place], [place] - [address] [facility] [address] Verified pharmacy: yes Verified day(s) supplied: yes Verified refill(s) needed (previous prescription showing no refills in chart): Yes Have you received any controlled medications from any other provider? Overdue for visit: No If yes - patient scheduled? N/A Most recent labs completed in chart? N/A Normal [facility] Office Visiton 01-11-2024 Follow-up visit [id number] Kiana Hedrick 1970 F Date Provider Department Center 01/11/2024 [id number] ROCHA [facility] Family History Problem Relation Age of [...] Alive Daughter Alive Sister Alive Level of Service:63577 [place] OFFICE/OUTPATIENT ESTABLISHED SF MDM 10 MIN Reason for Visit and Comments: Neck Mass [804] - Lymph node, x 3 wks, bilateral, painful Normal [facility] Progress Noteon 01-11-2024 Progress Note [facility] [address] [facility] [address] [facility] [address] Dept: [phone] Dept Reason for Visit: Neck Mass (Lymph node, x 3 wks, bilateral, painful) Assessment and Plan 1. Lymphadenopathy, cervical - US head neck soft tissue Follow up if symptoms worsen or fail to improve. Subjective HPI Pt presents today for evaluation of lymph nodes in her neck. Was seen by the produce team lead and was told to follow up with [...] Any cillins per patient Prochlorperazine Unknown Sulfamethoxazole-Trimet [facility] Outpatient Medications Prior to Visit Medication [...] note reviewed. Constitutional: (more content not included)... Normal [facility] 36on 12-08-2023 36 Yes. No urgency. 36 Name of caller: Kiana ambrosio Contact phone number: [phone] Relationship to Patient: Patient Provider: Practice: [facility] Chief Complaint/Reason for Call: Patient called in regarding voicemail left. Patient stated she only can come in the afternoon, scheduled 12/15 with . Please advise. Best time of day caller can be reached: N/A Patient advised that office/PCP has 24-48 business hours to return their call: N/A 36 Sent Brazzleboxhart message [facility] 36 Left message on patient's voicemail asking her to call back and schedule an office visit. If patient calls, please schedule first available 20 OV. 36 20 fine. 36on 12-07-2023 36 That's fine. 36 Name of caller: Ramon garcía Contact phone number: [phone] Relationship to Patient: [facility] Provider: Dr. Thakkar Practice: [facility] Chief Complaint/Reason for Call: (pt was not on the line to triage) PT was seen downstairs at [facility] today and it was discovered that pt has palpable lymph nodes and was advised to be seen immediately. The office states they can fax any clinical documentation if need be. Please advise pt on next steps. Best time of day caller can be reached: any Patient advised that office/PCP has 24-48 business hours to return their call: Yes Pharmacy Clinical Interventi ons-Texton 09-21-2023 Pharmacy Clinical [...] Time : 5 Pharmacy Additional Information : 09/20 HR: see results callback worklist Joanne Morley RPh - 09/21/2023 9:47 EST [facility] MISCon 09-20-2023 C [facility] [address] [place] [id number] Name: KAMLA HEDRICK : 1970 Admitting Provider: Gender Female Financial [phone] : Number: Danyell ORTEZ; Intake 2; 1 n: Admit 09/17/2023 Date: Discharge 09/17/2023 Microbiology Date: PROCEDURE: C [facility] [] SOURCE: WOUND BODY SITE: COLLECTED DATE/TIME: [...] c=Corrected, i=Interp Data Name: KAMLA HEDRICK Print 09/20/2023 09:49 EST Date/Time: [facility] [address] [place] [id number] Name: KAMLA HEDRICK : 1970 Admitting Provider: Gender Female Financial [phone] : Number: Danyell ORTEZ; Intake 2; 1 [...] c=Corrected, i=Interp Data Name: KAMLA HEDRICK Print 09/20/2023 09:49 EST Date/Time: Normal [facility] Comment on above: Performed By: #### [id number] ####[facility] [id number] [place] [id number] Medical Director: Demetrio Rodrigez MD Pharmacy Clinical [...] Morley RPh - 09/20/2023 11:02 EST Normal [facility] ED Adult Data - Texton 09-16 [...] EST) Problems(Active) Bipolar 1 disorder (SNOMED CT :7808926230 ) Name of Problem: Bipolar 1 disorder ; Recorder: Monica Doll RN; Confirmation: Confirmed ; Classification: Patient/Family Stated ; Code: 6146674465 ; Contributor System: [employer] ; Last Updated: 06/10/2016 19:47 EST ; Life Cycle Date: 06/10/2016 ; Life Cycle Status: Active ; Vocabulary: SNOMED CT Crohns disease (SNOMED CT :9918880893 ) Name of Problem: Crohns disease ; Recorder: Zuleika Wagner RN; Confirmation: Confirmed ; Classification: Medical ; Code: 0154411899 ; Contributor System: [employer] ; Last Updated: 01/27/2017 19:25 EDT ; Life Cycle Date: 01/27/2017 ; Life Cycle Status: Active ; Vocabulary: SNOMED CT Opioid use disorder, Severe (SNOMED CT :184087764 ) Name of Problem: Opioid use disorder, Severe ; Recorder: ROBERT MENDOZA DO; Confirmation: Confirmed ; Classification: Medical ; Code: 312805397 ; Contributor System: [employer] ; Last Updated: 03/01/2017 15:02 EDT ; Life Cycle Status: Active ; Responsible Provider: ROBERT MENDOZA DO; Vocabulary: SNOMED CT Posttraumatic stress disorder (SNOMED CT :312999490 ) Name of Problem: Posttraumatic stress disorder ; Recorder: ROBERT MENDOZA DO; Confirmation: Confirmed ; Classification: Medical ; Code: 226362664 ; Contributor System: [employer] ; Last Updated: 03/01/2017 15:02 EDT ; Life Cycle Status: Active ; Responsible Provider: ROBERT MENDOZA DO; Vocabulary: SNOMED CT PTSD (post-traumatic stress disorder) (SNOMED CT :803843144 ) Name of Problem: PTSD (post-traumatic stress disorder) ; Recorder: Monica Doll RN; Confirmation: Confirmed ; Classification: Patient/Family Stated ; Code: 545136814 ; Contributor System: [employer] ; Last Updated: 06/10/2016 19:47 EST ; Life Cycle Date: 06/10/2016 ; Life Cycle Status: Active ; Vocabulary: SNOMED CT Tobacco use disorder, Moderate (SNOMED CT :34294808 ) Name of Problem: Tobacco use disorder, Moderate ; Recorder: ROBERT MENDOZA DO; Confirmation: Confirmed ; Classification: Medical ; Code: 01119043 ; Contributor System: [employer] ; Last Updated: 03/01/2017 15:03 EDT ; Life Cycle Status: Active ; Responsible Provider: ROBERT MENDOZA DO; Vocabulary: SNOMED CT Vancomycin resistant enterococcus (SNOMED CT :648637910 ) Name of Problem: Vancomycin resistant enterococcus ; Recorder: SYSTEM; Confirmation: Confirmed ; Classification: Medical ; Code: 927444448 ; Last Updated: 02/02/2016 06:33 EDT ; [...] PNED ; Probability: 0 ; Diagnosis Code: [id number] Procedure History ED Devices Present on Arrival [...] 09/17/2023 18:3 (more content not included)... Normal [facility] ED Discharge Educationon ED Discharge Education Dermatology Folliculitis: Care Instructions Overview Folliculitis (say apz-COH-tmk-LY-tus) is an inflammation of the pouches (follicles) [...] Where can you learn more? Go to https://[email or web address]. net/patientEd Enter M257 in the search box to learn more about Folliculitis: Care Instructions. Current as of: June 02, 2021 Content Version: 13.3 ? [employer]. Care instructions adapted under license by your healthcare professional. If you have questions about a medical condition or this instruction, always ask your healthcare professional. [employer] disclaims any warranty or liability for your [...] of fluids you drink. ? Take an wokl-vhn-gcxwalx pain medicine, such as acetaminophen (Tylenol), ibuprofen (Advil, Motrin), or naproxen (Aleve). Read and follow all instructions on the label. ? Do not take two or more pain medicines at the same time unless the (more content not included)... Normal [facility] ED Emergency Severity Index Adult-Texton 09-17-2023 ED Emergency Severity Index Adult-Text AIDEN - Adult Entered On: 09/17/2023 18:30 EST Performed On: 09/17/2023 18:25 EST by Agustina Goodman RN DCP GENERIC CODE Visit Reason : swollen lymph/glands, sent from Tracking Triage Date/Time : 09/17/2023 18:30 EST Tracking Reg Status : Requested Tracking Acuity : [id number] Tracking Group : Agustina Alba RN - 09/17/2023 18:30 EST Normal [facility] ED Nrsing Adlt Triage Sep Sc rning - Texton 09-17-2023 ED Nrsing Adlt Triage Sep Scrning - Text ED Nursing Adult Triage Sepsis Screening Tool Entered On: 09/17/2023 18:30 EST Performed On: 09/17/2023 18:25 EST by Agustina Goodman RN Adult Sepsis Screening Sepsis Infection Screening ED : No Agustina Goodman RN - 09/17/2023 18:30 EST Normal [facility] ED Patient Summaryon ED Patient Summary [facility] Emergency Department Discharge Instructions [address] [place] [address] (Patient Copy) Name: RYLEYOctober : 1970 Allergies: penicillins; naproxen; ibuprofen; doxycycline; Compazine; Bactrim Diagnosis: Bacterial folliculitis; Cervical lymphadenopathy; Skin lesion of scalp Visit Date: 09/17/2023 18:21:46 Current Date Time: 09/17/2023 19:07:16 Address: [address] [place] [address] Primary Care Provider: Name: ROBY SENA Emergency Department Care Providers: Primary Physician: CARLTON SOTO MD Thank you for choosing [facility] for your emergency care. You are [...] Thank you again for allowing the [facility] Emergency Department to care for your medical needs. If you have questions about your care or follow up information please contact us at [phone]. Follow-Up Instructions KAMLA HEDRICK has been given these follow-up instructions: With: Address: When: SHIRA RIDER [address] NOT ON STAFF [address] [place] [address] [place] [address] Within 3 to 5 days Patient Education Materials RYLEY KAMLA Michelle has been given the following patient education [...] of fluids you drink. ? Take an patg-njt-blfnuat pain medicine, such as acetaminophen (Tylenol), ibuprofen [...] August 27, 2021 Content Version: 13.3 ? [employer]. Care instructions adapted under license by your healthcare professional. If you have questions about a medical condition or this instruction, always ask your healthcare professional. [employer] disclaims any warranty or liability for your use of this information. Folliculitis: Care Instructions Overview Folliculitis (say ebe-DHR-way-LY-tus) is an inflammation of the pouches (follicles) in the skin where hair grows. It can occur on any part of the body, but it is most common on the scalp, face, armpits, and groin. Bacteria, (more content not included)... Normal [facility] ED Physician Reporton 2023 ED Physician Report KAMLA HEDRICK :1970 Registration Date:09/17/2023 History of Present Illness [...] she went to the urgent care in [facility] because she felt a lump on [...] ON STAFF Within 3 to [address] [place] [address] [place] [id number]- Additional Instructions: Assessment This Visit Diagnosis [...] capsule)1 Capsu (more content not included)... Normal [facility] ED Progress Noteon ED Progress Note 1825 pt presents to ED ambulatory from urgent care for neck pain/lymph swelling. states 7/ pain since Wednesday and went to urgent care who sent her here for further work up. denies sore throat, fever/chills, chest pain, SOB, abd pain, or any other sx at this time. VSS. a/ox3. Dr. Soto in to assess. culture swab obtained by Dr. Soto sent to lab pt medicated per order. tolerated well. 1905 Patient discharged from ED with written discharge instructions and RX x2. Patient educated appropriately. Patient voices no question or concerns at this time. Pt ambulatory with steady gait out to private vehicle. Normal [facility] ED Triage Adult-Texton 09-16 ED Triage Adult-Text ED Triage Entered O n: 09/17/2023 18:33 EST Performed On: 09/17/2023 18:25 EST by Agustina Goodman RN Triage (As Of: 09/17/2023 18:33:32 EST) Problems(Active) Bipolar 1 disorder (SN[address] :4165259385 ) Name of Problem: Bipolar 1 disorder ; Recorder: Monica Doll RN; Confirmation: Confirmed ; Classification: Patient/Family Stated ; Code: 8945070038 ; Contributor System: [employer] ; Last Updated: 06/10/2016 19:47 EST ; Life Cycle Date: 06/10/2016 ; Life Cycle Status: Active ; Vocabulary: SNOMED CT Crohns disease (SNOMED CT :8948059601 ) Name of Problem: Crohns disease ; Recorder: Zuleika Wagner RN; Confirmation: Confirmed ; Classification: Medical ; Code: 5470366502 ; Contributor System: PowerChart ; Last Updated: 01/27/2017 19:25 EDT ; Life Cycle Date: 01/27/2017 ; Life Cycle Status: Active ; Vocabulary: SNOMED CT Opioid use disorder, Severe (SNOMED CT :473546294 ) Name of Problem: Opioid use disorder, Severe ; Recorder: ROBERT MENDOZA DO; Confirmation: Confirmed ; Classification: Medical ; Code: 848609609 ; Contributor System: PowerChart ; Last Updated: 03/01/2017 15:02 EDT ; Life Cycle Status: Active ; Responsible Provider: ROBERT MENDOZA DO; Vocabulary: SNOMED CT Posttraumatic stress disorder (SNOMED CT :192120314 ) Name of Problem: Posttraumatic stress disorder ; Recorder: ROBERT MENDOZA DO; Confirmation: Confirmed ; Classification: Medical ; Code: 736596553 ; Contributor System: [employer]ent[employer]Chart ; Last Updated: 03/01/2017 15:02 EDT ; Life Cycle Status: Active ; Responsible Provider: ROBERT MENDOZA DO; Vocabulary: SNOMED CT PTSD (post-traumatic stress disorder) (SNOMED CT :630181470 ) Name of Problem: PTSD (post-traumatic stress disorder) ; Recorder: Monica Doll RN; Confirmation: Confirmed ; Classification: Patient/Family Stated ; Code: 725079589 ; Contributor System: [employer]Chart ; Last Updated: 06/10/2016 19:47 EST ; Life Cycle Date: 06/10/2016 ; Life Cycle Status: Active ; Vocabulary: SNOMED CT Tobacco use disorder, Moderate (SNOMED CT :46520046 ) Name of Problem: Tobacco use disorder, Moderate ; Recorder: ROBERT MENDOZA DO; Confirmation: Confirmed ; Classification: Medical ; Code: 43250274 ; Contributor System: PowerChart ; Last Updated: 03/01/2017 15:03 EDT ; Life Cycle Status: Active ; Responsible Provider: ROBERT MENDOZA DO; Vocabulary: SNOMED CT Vancomycin resistant enterococcus (SNOMED CT :229781157 ) Name of Problem: Vancomycin resistant enterococcus ; Recorder: SYSTEM; Confirmation: Confirmed ; Classification: Medical ; Code: 052313679 ; Last Updated: 02/02/2016 06:33 EDT ; [...] PNED ; Probability: 0 ; Diagnosis Code: [id number] -[id number] (As Of: 09/17/2023 18:33:32 EST) Allergies (Active) [...] bpm Respiratory (more content not included)... Normal [facility] CNOVon 06-25-2023 CNOV Office Visit (UCWSTR ) RYLEYOCTOBER ([id number]) 1970 F Date Time Provider Department 06/25/23 4:45 PM ASHLEE IYER UCWSTR During your visit today, we recorded the following information about you: Temperature Pulse Respiration Blood pressure 97.8 degrees 75/minute 20/minute 109/70 Weight 77.1 kg Ashlee Iyer APRN.CNP 06/25/2023 5:27 PM Signed Subjective HPI October [...] Follow up if itching continues Ashlee Iyer APRN.CLOTH STOCK SORTER Allergies As of Date: 06/25/2023 Noted Allergy [...] Encounter Status:Closed by ASHLEE IYER on 06/25/23 [facility] 05-12-2023 CNOV Office Visit (UCWSTR ) KAMLA HEDRICK ([id number]) 1970 F Date Time Provider Department 05/12/23 3:30 PM JEN GORE TR During your visit today, we recorded the [...] - PREDNISONE 10 MG TABLET Jen Gore APRN.CLOTH STOCK SORTER Allergies As of Date: 05/12/2023 Noted Allergy [...] Date Reviewed: 05/12/2023 Reviewed by: Jen Gore APRN.CLOTH STOCK SORTER - Fully Assessed Reason for Visit: Cough [28] Cmt: LACY, coughing up mucus, chest feels heavy x 2.5 weeks Primary Visit Diagnosis:Acute cough [R05.1] Other Visit Diagnosis:History of asthma [Z87.09] Order(s):XR CHEST 2V FRONTAL/LAT [[id number]] Order #: [id number]. #:[id number] predniSONE (DELTASONE) 10 mg tabletTake 4 tabs [...] Status:Closed by JEN GORE on 05/12/23 Normal [facility] XR CHEST 2V FRONTAL/LATon XR CHEST [...] upper quadrant. IMPRESSION: No acute radiographic abnormality. Cloth Seconds Sorter: SHAILESH Transcribe Date/Time: May 12 2023 4:07P Dictated by : LENARD JOSE MD This examination was interpreted and the report reviewed and electronically signed by: LENARD JOSE MD on May 12 2023 4:08PM EST [id number] Normal [facility] XR Chest PA and Lateralon IMPRESSION: No acute radiographic abnormality. Cloth Seconds Sorter: PSCB Transcribe Date/Time: May 12 2023 4:07P Dictated by : LENARD JOSE MD This examination was interpreted and the report reviewed and electronically signed by: LENARD JOSE MD on May 12 2023 4:08PM [facility] DIVISION OF RADIOLOGY * * *Final Report* [...] right upper quadrant. DIVISION OF RADIOLOGY Provider, [facility] - 05/12/2023 * * *Final Report* * [...] quadrant. IMPRESSION IMPRESSION: No acute radiographic abnormality. Cloth Seconds Sorter: SHAILESH Transcribe Date/Time: May 12 2023 4:07P Dictated by : LENARD JOSE MD This examination was interpreted and the report reviewed and electronically signed by: LENARD JOSE MD on May 12 2023 4:08PM [facility] Radiology Study observation (narrative) [facility] XR Chest PA and LateralOrder ed By: Ccf Provider on 05-12-2023 [facility] HBV surface Ag Ser Qlon 03-19 HBV surface Ag Ql (S) Negative Normal Negative [facility] Comment on above: Order Comment: Speci men Type: BLOOD SPECIMEN Ordering Facility: [facility] Address: [address] [place] [address] Performed By: #### 5 195-3, 75778-8, 12569-0 #### [facility] CLIA [id number] [address] [place] [address] [place] HCV Ab Ser Qlon 04-05-2023 HCV Ab Ql (S) Positive Abnormal Negative [facility] Comment on above: Order Comment: Speci men Type: BLOOD SPECIMEN Ordering Facility: [facility] Address: [address] [place] [address] Performed By: #### 1 6128-1, 08550-4 #### [facility] CLIA [id number] [address] [place] [address] [place] HCV RNA SerPl FRED+probe-aCnc on 04-05-2023 HCV RNA FRED+probe Qn Not detected Normal HCV RNA not detected by PCR. [facility] Comment on above: Order Comment: Speci men Type: BLOOD SPECIMEN Ordering Facility: [facility] Address: [address] [place] [address] Performed By: #### 1 6128-1, 50988-2 #### [facility] CLIA [id number] [address] [place] [address] [place] HIV 1+2 Ab IA Qlon 3 HIV 1 and 2 Ab IA.rapid Nom Normal [facility] Comment on above: Order Comment: Speci men Type: BLOOD SPECIMEN Ordering Facility: [facility] Address: [address] [place] [address] Result Comment: Test not indicated. Performed By: #### 5 195-3, 28206-9, 64265-4 #### [facility] CLIA [id number] [address] [place] [address] [place] HIV 1+2 Ab+HIV1 p24 Ag IA Ql Non-Reactive Normal Nonreactive [facility] Comment on above: Order Comment: Speci men Type: BLOOD SPECIMEN Ordering Facility: [facility] Address: [address] [place] [address] Performed By: #### 5 195-3, 39108-7, 59804-5 #### [facility] CLIA [id number] [address] [place] [address] [place] HIV immunoassay testing algorithm interpretation (S/P/Bld) [Interp] Normal [facility] Comment on above: Order Comment: Speci men Type: BLOOD SPECIMEN Ordering Facility: [facility] Address: [address] [place] [address] Result Comment: No e vidence of HIV-1 or HIV-2 infection. Should recent infection be suspected, repeat testing may be considered 2-3 weeks after this draw. [place] Rev. Code 3701.243(E): This information has been [...] or diagnoses. Performed By: #### 5 195-3, 77762-6, 87523-7 #### [facility] CLIA [id number] [address] [place] [address] [place] HPV W/GENOTYPE THIN PREPon 0 04-05-2023 HPV 16 Ag Ql (Unsp spec) Negative Normal Negative for HPV DNA high risk type 16 by PCR [facility] Comment on above: Order Comment: Speci men Type: FLUID SPECIMEN Ordering Facility: [facility] Address: [address] [place] [address], [place] [address] Performed By: #### H PVHRT #### [facility] CLIA [id number] [address] [place] [address] [place] HPV 18 Ag Ql (Unsp spec) Negative Normal Negative for HPV DNA high risk type 18 by PCR [facility] Comment on above: Order Comment: Speci men Type: FLUID SPECIMEN Ordering Facility: [facility] Address: [address] [place] [address] Performed By: #### H PVHRT #### [facility] CLIA [id number] [facility] [place] [address] [place] HPV 31+33+35+39+45+51+52+5 6+58+59+66+68 DNA FRED+probe Ql (Cvx) Negative for HPV DNA high risk types: 31,33,35,39,45,51,52,56 ,58,59,66,68 by PCR. Normal Negative for HPV DNA high risk types: 31,33,35,39,4 5,51,52,56,58 ,59,66,68 by PCR. [facility] Comment on above: Order Comment: Speci men Type: FLUID SPECIMEN Ordering Facility: [facility] Address: [address] [place] [address] Performed By: #### H PVHRT #### [facility] CLIA [id number] [address] [place] [address] [place] PAP TESTon 04-05-2023 ADEQUACY Normal [facility] Comment on above: Order Comment: Speci men Type: FLUID SPECIMEN Ordering Facility: [facility] Address: [address] [place] [address] Result Comment: Sati sfactory for interpretation No endocervical component Performed By: #### L [id number] #### [facility] CLIA [id number] [address] [place] [address] [place] CASE REPORT Normal [facility] Comment on above: Order Comment: Speci men Type: FLUID SPECIMEN Ordering Facility: [facility] Address: [address] [place] [address] Result Comment: Gyne cologic Cytology Report Case: [id number] Authorizing Provider: Susan Herrera NP Collected: 04/05/2023 02:30 PM Ordering Location: [facility] Received: 04/06/2023 09:57 AM First Screen: Mohorcic, Stefani, CT, ASCP Specimen: Pap Test, ThinPrep, Cervix Performed By: #### L [id number] #### [facility] CLIA [id number] [address] [place] [address] [place] CLINICAL HISTORY, CYTOLOGY, TRAFFIC COURT REFEREE Routine Exam Normal [facility] Comment on above: Order Comment: Speci men Type: FLUID SPECIMEN Ordering Facility: [facility] Address: [address] [place] [address] Result Comment: Prev ious pap date: 2019 Performed By: #### L [id number] #### [facility] CLIA [id number] [address] [place] [address] [place] CYTOLOGY PAP OTHER INT Predominance of coccobacilli consistent with shift in vaginal pretty Normal [facility] Comment on above: Order Comment: Speci men Type: FLUID SPECIMEN Ordering Facility: [facility] Address: [address] [place] [address] Performed By: #### L [id number] #### [facility] CLIA [id number] [address] [place] [address] [place] FINAL PERFORMING LAB Normal [facility] Comment on above: Order Comment: Speci men Type: FLUID SPECIMEN Ordering Facility: [facility] Address: [address] [place] [address] Result Comment: Tech nical component, medical and scientific illustrator screening performed at [facility], [address] [place] [address] CLIA# [id number] Diagnostic interpretation performed at [facility], [address] [place], [place] [id number] CLIA# [id number] Sheet Metal Worker: Carlos Medeiros M.D. Performed By: #### L [id number] #### [facility] CLIA [id number] [address] [place] [address] [place] HPV REFLEX Yes HPV Normal [facility] Comment on above: Order Comment: Speci men Type: FLUID SPECIMEN Ordering Facility: [facility] Address: [address] [place] [address] Performed By: #### L [id number] #### [facility] CLIA [id number] [address] [place] [address] [place] INTERPRETATION, CYTOLOGY, TRAFFIC COURT REFEREE Normal [facility] Comment on above: Order Comment: Speci men Type: FLUID SPECIMEN Ordering Facility: [facility] Address: [address] [place] [address] Result Comment: Nega tive for intraepithelial lesion or malignancy. Performed By: #### L [id number] #### [facility] CLIA [id number] [address] [place] [address] [place] LMP 08/2022 Normal [facility] Comment on above: Order Comment: Speci men Type: FLUID SPECIMEN Ordering Facility: [facility] Address: [address] [place] [address] Performed By: #### L [id number] #### [facility] CLIA [id number] [address] [place], [place] [id number] [place] PAP DISCLAIMER COMMENT The Pap Smear is a screening test for cervical cancer. False negative results occur with all screening tests, emphasizing the need for rescreening at recommended intervals, and clinical correlation. Normal [facility] Comment on above: Order Comment: Speci men Type: FLUID SPECIMEN Ordering Facility: [facility] Address: [address] [place] [address], [place] [address] Performed By: #### L [id number] #### [facility] CLIA [id number] [address] [place] [address] [place] PAP HSE MANAGER COMMENT This specimen has be en analyzed by the ThinPrep Imaging System, an automated imaging and review system, which assists the laboratory in evaluating cells on ThinPrep Pap tests. Following automated imaging, selected arriola from every slide are reviewed by a medical and scientific illustrator. Normal [facility] Comment on above: Order Comment: Roc men Type: FLUID SPECIMEN Ordering Facility: [facility] Address: [address] [place] [address] Performed By: #### L [id number] #### [facility] CLIA [id number] [address] [place] [address] [place] Reagin and Treponema pallidu m IgG and IgM [Interp]on 04-05-2023 T. pallidum IgG+IgM IA Ql (S) Non-Reactive Normal Nonreactive [facility] Comment on above: Order Comment: Roc hale Type: BLOOD SPECIMEN Ordering Facility: [facility] Address: [address] [place] [address] Performed By: #### 5 195-3, 92351-8, 26922-4 #### [facility] CLIA [id number] [address] [place] [address] [place] Reagin+T pallidum IgG+IgM Se rPl-Impon 04-05-2023 Reagin and Treponema pallidum IgG and IgM [Interp] Cannot exclude recent Treponemal infection if specimen collected within 7-10 days after appearance of suspect lesions or 2-3 weeks after an exposure. Clinical correlation is required. Normal [facility] Comment on above: Order Comment: Roc hale Type: BLOOD SPECIMEN Ordering Facility: [facility] Address: [address] [place] [address], [place] [address] Performed By: #### 5 195-3, 83825-8, 59111-1 #### [facility] CLIA [id number] [address] [place] [address] [place] Basophil percentageOrdered B y: Taylor Alarcon on 03-02-2023 Chloride [Moles/Vol] 117 mmol/L 98-107 [facility] Glucose [Mass/Vol] 106 mg/dL 74-106 [facility] Comment on above: Fasting Glucose resu lt from 100 to 125 mg/dL suggests IMPAIRED HOMEOSTASIS per A.D.A. criteria. Potassium [Moles/Vol] 4.0 mmol/L 3.5-5.1 [facility] Sodium [Moles/Vol] 143 mmol/L 136-145 [facility] Laboratory - Chemistry and C hemistry - challengeOrdered By: Taylor Alarcon on 03-02-2023 CO2 [Moles/Vol] 22.0 mmol/L 21.0-32.0 [facility] Urea nitrogen/Creatinine [Mass ratio] 9.2 mg/mg 10-20 [facility] No Panel InformationOrdered By: Taylor Alarcon on 03-02-2023 Estimated Creatinine Clearance Calc 82.90 ml/min [facility] Estimated GFR (MDRD) Amer 104 mL/min >60 [facility] Comment on above: GFR Calc Estimated GFR (MDRD) Non-Af Amer 86 mL/min >60 [facility] Comment on above: Non- GFR Calc Serum or plasma calcium alice urement (mass/volume)Ordered By: Taylor Alarcon on 03-02-2023 Calcium [Mass/Vol] 8.1 mg/dL 8.5-10.1 [facility] Serum or plasma creatinine m easurement (mass/volume)Ordered By: Taylor Alarcon on 03-02-2023 Creatinine [Mass/Vol] 0.76 mg/dL 0.55-1.02 [facility] Comment on above: The validity of the calculated GFR & GFRAA in patients over 70 years has not been determined. Clinical correlation is essential. Serum or plasma urea nitroge n measurement (mass/volume)Ordered By: Taylor Alarcon on 03-02-2023 Urea nitrogen [Mass/Vol] 7 mg/dL 7-18 [facility] Thin prep Papanicolaou smear with manual screeningOrdered By: Taylor Alarcon on 03-02-2023 Thin prep Papanicolaou smear with manual screening 4 5-15 [facility] Absolute lymphocyte countOrd ered By: Fabio Mcbride on 03-01-2023 Lymphocytes Auto (Unsp spec) [#/Vol] 2.09 10*3/uL 0.83-4.51 [facility] Basophil percentageOrdered B y: Kristen Caraballo on 03-01-2023 Bilirubin [Mass/Vol] 0.50 mg/dL 0.20-1.00 [facility] Comment on above: For patients on eltr ombopag therapy, use of [place] TBIL is not recommended. Protein [Mass/Vol] 6.1 g/dL 6.4-8.2 [facility] Bilirubin [Mass/Vol] 0.70 mg/dL 0.20-1.00 [facility] Comment on above: For patients on eltr ombopag therapy, use of [place] TBIL is not recommended. Protein [Mass/Vol] 7.2 g/dL 6.4-8.2 [facility] Basophil percentageOrdered B y: Fabio Mcbride on 03-01-2023 Basophils/100 WBC (Bld) 0.9 % 0-1 [facility] Chloride [Moles/Vol] 110 mmol/L 98-107 [facility] Eosinophils/100 WBC (Bld) 4.9 % 0-5 [facility] Glucose [Mass/Vol] 155 mg/dL 74-106 [facility] Comment on above: Fasting Glucose resu lt greater than or equal to 126 mg/dL suggests DIABETES MELLITUS per A.D.A. criteria. Neutrophils (Bld) [#/Vol] 3.5 10*3/uL 2.0-7.7 [facility] Neutrophils/100 WBC (Bld) 54.0 % 47-70 [facility] Potassium [Moles/Vol] 3.2 mmol/L 3.5-5.1 [facility] Sodium [Moles/Vol] 145 mmol/L 136-145 [facility] WBC (Bld) [#/Vol] 6.4 10*3/uL 4.4-11.0 [facility] Beta hCG serum qualOrdered B y: Fabio Mcbride on 03-01-2023 Beta HCG ( test) Ql Negative [facility] Blood erythrocytes count (nu mber/volume)Ordered By: Fabio Mcbride on 03-01-2023 RBC (Bld) [#/Vol] 3.91 10*6/uL 4.2-5.4 [facility] Blood hemoglobin measurement (mass/volume)Ordered By: Fabio Mcbride on 03-01-2023 Hemoglobin (Bld) [Mass/Vol] 11.2 g/dL 12.0-15.0 [facility] Blood lymphocytes/100 leukoc ytesOrdered By: Fabio Mcbride on 03-01-2023 Lymphocytes/100 WBC (Bld) 32.7 % 19-41 [facility] Blood monocytes/100 leukocyt esOrdered By: Fabio Mcbride on 03-01-2023 Monocytes/100 WBC (Bld) 7.2 % 0-10 [facility] Blood platelet mean volumeOr dered By: Fabio Mcbride on 03-01-2023 Platelet mean volume (Bld) [Entitic vol] 9.2 fL 6.2-12.0 [facility] Determination of erythrocyte mean corpuscular volume (MCV)Ordered By: Fabio Mcbride on 03-01-2023 MCV (RBC) [Entitic vol] 89.8 fL 81-99 [facility] Direct bilirubinOrdered By: Kristen Caraballo on 03-01-2023 Bilirubin.direct [Mass/Vol] 0.18 mg/dL 0.00-0.30 [facility] HIV 1 and HIV-2 antibody ass ay with HIV-1 p24 antigen detectionOrdered By: Kristen Caraballo on 03-01-2023 HIV 1+2 Ab+HIV1 p24 Ag IA Ql Non-Reactive Nonreactive [facility] Hematocrit Auto (Bld) [Volum e fraction]Ordered By: Fabio Mcbride on 03-01-2023 Hematocrit (Bld) [Volume fraction] 35.1 % 37-47 [facility] Laboratory - Chemistry and C hemistry - challengeOrdered By: Kristen Caraballo on 03-01-2023 ALP [Catalytic activity/Vol] 70 U/L 45-117 [facility] ALT [Catalytic activity/Vol] 20 U/L 13-56 [facility] Globulin (S) [Mass/Vol] 3.2 g/dL 2.2-4.2 [facility] ALP [Catalytic activity/Vol] 79 U/L 45-117 [facility] ALT [Catalytic activity/Vol] 23 U/L 13-56 [facility] Globulin (S) [Mass/Vol] 3.7 g/dL 2.2-4.2 [facility] Magnesium [Mass/Vol] 1.7 mg/dL 1.6-2.6 [facility] Laboratory - Chemistry and C hemistry - challengeOrdered By: Fabio Mcbride on 03-01-2023 CO2 [Moles/Vol] 31.0 mmol/L 21.0-32.0 [facility] Urea nitrogen/Creatinine [Mass ratio] 11.8 mg/mg 10-20 [facility] Laboratory - Drug toxicology Ordered By: Fabio Mcbride on 03-01-2023 Amphetamines Ql (U) Negative <1000 ng/mL [facility] Benzodiazepines Ql (U) Negative < 200 ng/mL [facility] Cannabinoids Screen Ql (U) Negative < 50 ng/mL [facility] Cocaine Ql (U) Positive < 300 ng/mL [facility] Opiates Ql (U) Negative < 300 ng/mL [facility] Laboratory - Hematology and Cell countsOrdered By: Fabio Mcbride on 03-01-2023 Erythrocyte distribution width (RBC) [Entitic vol] 43.7 fL 35.1-43.9 [facility] Erythrocyte distribution width (RBC) [Ratio] 13.4 % 11.6-14.6 [facility] Immature granulocytes/100 WBC (Bld) 0.300 % 0.0-0.9 [facility] Comment on above: IG% - Immature Granu locytes (promyelocytes, myelocytes and metamyelocytes) > 1% indicates that a LEFT SHIFT is Present. MCH (RBC) [Entitic mass] 28.6 pg 27.0-32.0 [facility] Nucleated RBC/100 WBC (Bld) [Ratio] 0 % 0-5 [facility] MCHC Auto (RBC) [Mass/Vol]Or dered By: Fabio Mcbride on 03-01-2023 MCHC (RBC) [Mass/Vol] 31.9 g/dL 32-36 [facility] No Panel InformationOrdered By: Fabio Mcbride on 03-01-2023 Estimated Creatinine Clearance Calc 65.12 ml/min [facility] Estimated GFR (MDRD) Amer 82 mL/min >60 [facility] Comment on above: GFR Calc Estimated GFR (MDRD) Non-Af Amer 67 mL/min >60 [facility] Comment on above: Non- GFR Calc Ethyl Alcohol Level < 3.0 mg/dL [facility] Comment on above: The serum:whole bloo d ethanol ratio is approximately 1.14and varies slightly with hematocrit. Medical Alcohol reference interval and critical value innon-tolerant individuals; 50 - 100 Impairment 100 Intoxication 100 - 250 Severe Poisoning 250 - 400 Deep/possible fatal coma MDMA (Ecstasy) Screen Positive < 500 ng/mL [facility] Urine Barbiturates Screen Negative < 200 ng/mL [facility] Urine Drug Screen Comment [facility] Comment on above: CONFIRMATORY TESTING FOR [...] Urine Methadone Screen Negative < 300 ng/mL [facility] No Panel InformationOrdered By: Kristen Caraballo on 03-01-2023 Hepatitis B Surface Antigen Non-Reactive Nonreactive [facility] Comment on above: Previous reported re sult: Nonreactive Edited by: PAO on 03/01/23:0615 AMENDED REPORT 03/01/23 0615 HEPB Surface Ag previously reported as: Nonreactive Hepatitis C Antibody Reactive Nonreactive [facility] Comment on above: Previous reported re sult: Preliminary Reactive Edited by: JOVANNA on 03/01/23:0616 Non Reactive: < 0.8 Equivocal: >/= 0.8 to < 1.0 Reactive: >/= 1.0The CDC recommends that a reactive/equivocal HCV antibody result be followed up by the HCV Nucleic Acid Amplificationtest ([id number]) Miscellaneous Test See comment [facility] Comment on above: TEST RESULT LIMITSHC V RNA Diagnosis, FRED HCV RNA, Quantitation HCV Not Detected IU/mL No evidence of active HCV infection.Test Information: The quantitative range of this assay is 15 IU/mL to 100 million IU/mL. TESTING PERFORMED AT [facility]. ORIGINAL REPORT ON FILE IN LAB CONTAINS ADDITIONAL TEST SITE INFORMATION. Platelets bldOrdered By: Seymour Mcbride on 03-01-2023 Platelets (Bld) [#/Vol] 321 10*3/uL 150-450 [facility] Serum Treponema species anti body detectionOrdered By: Kristen Caraballo on 03-01-2023 Treponema sp Ab Ql (S) Non-Reactive [facility] Serum hepatitis B virus surf adeline antibody IgG detectionOrdered By: Kristen Caraballo on 03-01-2023 HBV surface IgG Ql (S) Reactive [facility] Comment on above: Non Reactive: Incons istent with immunity less than <10 mIU/mL Reactive: Consistent with immunity greater than or equal to 10 mIU/mL Serum or plasma albumin alice urement (mass/volume)Ordered By: Kristen Caraballo on 03-01-2023 Albumin [Mass/Vol] 2.9 g/dL 3.2-5.0 [facility] Albumin [Mass/Vol] 3.5 g/dL 3.2-5.0 [facility] Serum or plasma albumin/glob ulin mass ratioOrdered By: Kristen Caraballo on 03-01-2023 Albumin/Globulin [Mass ratio] 0.9 {ratio} 0.9-2.4 [facility] Serum or plasma calcium alice urement (mass/volume)Ordered By: Fabio Mcbride on 03-01-2023 Calcium [Mass/Vol] 9.0 mg/dL 8.5-10.1 [facility] Serum or plasma creatinine m easurement (mass/volume)Ordered By: Fabio Mcbride on 03-01-2023 Creatinine [Mass/Vol] 0.93 mg/dL 0.55-1.02 [facility] Comment on above: The validity of the calculated GFR & GFRAA in patients over 70 years has not been determined. Clinical correlation is essential. Serum or plasma urea nitroge n measurement (mass/volume)Ordered By: Fabio Mcbride on 03-01-2023 Urea nitrogen [Mass/Vol] 11 mg/dL 7-18 [facility] Thin prep Papanicolaou smear with manual screeningOrdered By: Kristen Caraballo on 03-01-2023 Thin prep Papanicolaou smear with manual screening 16 U/L [facility] Thin prep Papanicolaou smear with manual screening 17 U/L [facility] Thin prep Papanicolaou smear with manual screeningOrdered By: Fabio Mcbride on 03-01-2023 Thin prep Papanicolaou smear with manual screening 4 5-15 [facility] Urine phencyclidine (PCP) de tectionOrdered By: Fabio Mcbride on 03-01-2023 Phencyclidine Ql (U) Negative < 25 ng/mL [facility] Whole blood hemoglobin A1c/t otal hemoglobin ratio (mass fraction)Ordered By: Kristen Caraballo on 03-01-2023 HbA1c (Bld) [Mass fraction] 5.3 % 3.8-5.6 [facility] Comment on above: Normal < 5.7 % Predi abetic 5.7 - 6.4 % Diabetic >or= 6.5 % Please note range changes. ED NOTEon 12-23-2022 ED NOTE HNO ID: [id number] Author: Stefani Shields RN Service: Emergency Medicine Author Type: Registered Nurse Type: ED Notes Filed: 12/22/2022 10:25 PM Note Text: Pt walked out of department, made comment to [facility] TRACY, I can't wait for those discharge papers pt's gate steady. Dr. Hernandez informed. 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 Patient states she is living in apartment [...] / Clinical Impression Clinical Impressions as of 12/22/22 2224 Rash and nonspecific skin eruption Infestation by bed bug MDM / Disposition / Plan 10:24 PM I have seen and evaluated patient, and went back to compare your discharge paperwork, as informed by nursing staff, patient states I cannot wait for my discharge paperwork and she has left the building. Pat (more content not included)... Normal [facility] ED NOTEon 12-22-2022 ED NOTE HNO ID: [id number] Author: Gaby Davidson RN Service: ? Author [...] vss. Will continue to monitor. Normal [facility] Office Visit (Audiology)on 09-16-2021 Follow-up visit Diagnoses/Problems [...] applicable. If no insurance benefits are available, [facility] can provide hearing aid services. 4. [...] any recent ear infections. Patient's preferred language: Salvadorean Preferred language of the parent, legal guardian or surrogate decision-maker of this minor or incapacitated patient: Salvadorean No overt signs of domestic violence/neglect/abuse. No referral made to Admissions Dean. Pain not interfering with optimal level of [...] applicable. If no insurance benefits are available, [facility] can provide hearing aid services. 4. Potential study candidate. She consented to being contacted to learn more and for further testing. Time: [id number] Signatures Electronically signed by : Vahe Azul CCC-A; Sep 16 2021 3:41PM EST (Author) Normal [facility] ED NOTEon 09-11-2021 ED NOTE HNO ID: [id number] Author: Ines Cevallos RN Service: Emergency Medicine Author Type: Registered Nurse Type: ED Notes Filed: 09/11/2021 1:30 AM Note Text: Dc instr to fu w pmd, return prn. Verb und, agreeable to plan. Patient is AANDO, skin wdp, resps unlabored, speech clear. Cheerful and interactive. Ambulates with steady upright gait Normal [facility] ED NOTE HNO ID: [id number] Author: Sarah Rangel RN Service: Emergency Medicine [...] anything else to help you? No Normal [facility] ED NOTE HNO ID: [id number] Author: Ines Cevallos RN Service: Emergency Medicine Author Type: Registered Nurse Type: ED Notes Filed: 09/11/2021 12:57 AM Note Text: Patient states there is something in my back and it's been going on for a month. When I look in the mirror, I can see it moving around. patient states there is no pain except when it's moving around. Normal [facility] ED PROV NOTEon 09-11-2021 ED PROV NOTE HNO ID: [id number] Author: Ramya Hull MD Service: Emergency Medicine [...] soft. Tenderness: (more content not included)... Normal [facility] DISCHARGE SUMMARYon 02-16-20 17 DISCHARGE SUMMARY NAME: KHAI HEDRICK R: [id number] DATE: 01/13/2017DISCHARGE DATE: 01/15/2017The patient was discharged from the service of Dr. Perez, for whom this dictationis being presented on 01/15/2017.DISCHARGE MEDICATIONS: None.LABORATORY VALUES: CBC within normal limits. INR 0.95. General biochemical screenwithin normal limits. Urine toxicology screen positive for opiates. Breathalyzer0.HOSPITAL COURSE: This patient presented to the [facility] with a history of the useof heroin from age of 45, injecting up to 1.5 g intravenously daily, having Xanax 3mg orally once a week to once a month. Smoking cigarettes to a half pack daily anddenying prior chemical dependency treatment. While on the [facility], Kamla wasallowed nicotine replacement therapy and tapering doses of tramadol andbuprenorphine and p.r.n. doses of phenobarbital. She participated in [employer], underwent a chemical dependency assessment and signed a certificate ofrelease and left the [facility] against medical advice.FINAL DIAGNOSES:1. Opiate use disorder, severe.2. Benzodiazepine use disorder, moderate.3. Tobacco use disorder, severe.4. History of hypertension.5. History of fibromyalgia.6. History of treated iron-deficiency anemia. IVÁN PEREZ, MDDICTATED BY: RADHAMES BURTON-OLIMPIA/PERLA/[id number]: 02/15/2017 12:27:02 E/S: Nba Perez MD02/22/17 1253Signature on [facility] PT NAME: POOL HEDRICK#: [id number] [place] [address] ACCT: [id number]: 72DISCHARGE SUMMARY Normal [facility] PHENOBARBon 01-15-2017 PHENOBARB 5.5 ug/mL Low 15-40 [facility] Comment on above: Order Comment: CONSE RVATION Performed By: #### L 600.79656 ####Test performed at: [place] [address] Nasreen 01-13-2017 Alanine aminotransferase (ALT) 19 U/L Normal 13-61 [facility] Comment on above: Order Comment: CONSE RVATION Performed By: #### L 500.41540, L500.64718, L500.80467, L500.70255, L500.58246 ####Test performed at: [place] [address] Laura 01-13-2017 Aspartate aminotransferase (AST) 16 U/L Normal 15-37 [facility] Comment on above: Order Comment: CONSE RVATION Performed By: #### L 500.59772, L500.18026, L500.78901, L500.17509, L500.28017 ####Test performed at: [place] [id number] BASIC MET PANELon 01-13-2017 Anion gap 11 mmol/L Normal 6-18 [facility] Comment on above: Order Comment: CONSE RVATION Performed By: #### L 500.70143, L500.85935, L500.38791, L500.16721, L500.30918 ####Test performed at: [place] [id number] Calcium 9.0 mg/dL Normal 8.5-10.1 [facility] Comment on above: Order Comment: CONSE RVATION Performed By: #### L 500.06869, L500.69219, L500.14375, L500.15306, L500.42134 ####Test performed at: [place] [id number] Chloride 107 mmol/L Normal 98-107 [facility] Comment on above: Order Comment: CONSE RVATION Performed By: #### L 500.80581, L500.88210, L500.56700, L500.92960, L500.81013 ####Test performed at: [place] [id number] CO2 27 mmol/L Normal 21-32 [facility] Comment on above: Order Comment: CONSE RVATION Performed By: #### L 500.37789, L500.25955, L500.40178, L500.23755, L500.60233 ####Test performed at: [place] [id number] Creatinine 0.882 mg/dL Normal 0.550-1.020 [facility] Comment on above: Order Comment: CONSE RVATION Performed By: #### L 500.72724, L500.24157, L500.61963, L500.29650, L500.81422 ####Test performed at: [place] [id number] Glucose mass conc 100 mg/dL Normal 74-106 [facility] Comment on above: Order Comment: CONSE RVATION Performed By: #### L 500.27433, L500.82170, L500.48986, L500.35739, L500.99811 ####Test performed at: [place] [address] OSM 290 mosm/kg Normal 270-300 [facility] Comment on above: Order Comment: CONSE RVATION Performed By: #### L 500.49604, L500.71652, L500.22659, L500.24947, L500.96760 ####Test performed at: [place] [address] Potassium molar conc 4.1 mmol/L Normal 3.5-5.1 [facility] Comment on above: Order Comment: CONSE RVATION Performed By: #### L 500.27897, L500.83516, L500.69236, L500.12845, L500.98695 ####Test performed at: [place] [id number] Sodium 141 mmol/L Normal 136-145 [facility] Comment on above: Order Comment: CONSE RVATION Performed By: #### L 500.29716, L500.07682, L500.62981, L500.23706, L500.66935 ####Test performed at: [place] [id number] Urea nitrogen 8 mg/dL Normal 7-18 [facility] Comment on above: Order Comment: CONSE RVATION Performed By: #### L 500.43347, L500.59281, L500.69940, L500.90370, L500.83170 ####Test performed at: [place] [address] CBCon 01-13-2017 Erythrocyte distribution width Auto Ratio (RBC) 14.3 % Normal 11.5-14.5 [facility] Comment on above: Order Comment: CONSE RVATION Performed By: #### L 200.28261 ####Test performed at: [place] [address] Erythrocytes (RBC) 0.000 10*6/uL Normal 0-0.012 [facility] Comment on above: Order Comment: CONSE RVATION Performed By: #### L 200.14937 ####Test performed at: [place] [address] Erythrocytes (RBC) 4.70 10*6/uL Normal 3.5-5.5 [facility] Comment on above: Order Comment: CONSE RVATION Performed By: #### L 200.10478 ####Test performed at: [place] [address] Hematocrit (HCT) 38.2 % Normal 36.0-48.0 [facility] Comment on above: Order Comment: CONSE RVATION Performed By: #### L 200.21904 ####Test performed at: [place] [address] Hemoglobin mass conc (Bld) 12.7 g/dL Normal 12.0-15.0 [facility] Comment on above: Order Comment: CONSE RVATION Performed By: #### L 200.92411 ####Test performed at: [place] [address] MCH 27.0 pg Normal 25.4-34.6 [facility] Comment on above: Order Comment: CONSE RVATION Performed By: #### L 200.35799 ####Test performed at: [address] [address] MCHC mass conc (RBC) 33.2 g/dL Normal 31.5-36.5 [facility] Comment on above: Order Comment: CONSE RVATION Performed By: #### L 200.44543 ####Test performed at: [address] [address] MCV 81.3 fL Normal 79.0-98.0 [facility] Comment on above: Order Comment: CONSE RVATION Performed By: #### L 200.02910 ####Test performed at: [place] [address] NRBC % 0.0 /100 WBC Normal 0-0.2 [facility] Comment on above: Order Comment: CONSE RVATION Performed By: #### L 200.06345 ####Test performed at: [place] [id number] Platelet mean volume (PMV) 9.3 fL Normal 8.7-12.4 [facility] Comment on above: Order Comment: CONSE RVATION Performed By: #### L 200.24414 ####Test performed at: [address] [address] Platelets 307 10*3/uL Normal 140-440 [facility] Comment on above: Order Comment: CONSE RVATION Performed By: #### L 200.19204 ####Test performed at: [address] [address] WBC (Leukocytes) 4.3 10*3/uL Normal 3.9-11.0 [facility] Comment on above: Order Comment: CONSE RVATION Performed By: #### L 200.65074 ####Test performed at: [place] [id number] EST. CREAT CLRon 01-13-2017 Creatinine 123.998 ML/MIN Normal [facility] Comment on above: Order Comment: CONSE RVATION Result Comment: This result is an ESTIMATED blood creatinine clearance valuewhich is derived from the patient age, sex, weight, andprevious blood creatinine result. Performed By: #### L 500.31975, L500.84031, L500.83160, L500.92255, L500.04277 ####Test performed at: [place] [address] GFR ESTIMATEon 01-13-2017 IF AMER > 60 Normal > 60 [facility] Comment on above: Order Comment: CONSE RVATION Result Comment: eGFR (Estimated GFR) Units of measure:mL/min/1.73 meters sq.*CALCULATION REVISED 05/07/2015;IDMS-traceable MDRD equationeGFR is derived from the reexpressed MDRD Study equationusing the following parameters: serum creatinine, age,gender and race. An eGFR<60 mL/min/1.73m2 for >3 monthsis consistent with chronic kidney disease. Refer to KDOQIguidelines for clinical interpretation. Performed By: #### L 500.05038, L500.60384, L500.12495, L500.79979, L500.61778 ####Test performed at: [place] [address] IF non-AFR AMER > 60 Normal > 60 [facility] Comment on above: Order Comment: CONSE RVATION Performed By: #### L 500.77594, L500.68782, L500.60384, L500.91061, L500.10105 ####Test performed at: [place] [address] LIMIT UR TOXon 01-13-2017 UR AMPH Negative Normal Negative [facility] Comment on above: Order Comment: CONSE RVATION Result Comment: CUTO VJ=3706 Performed By: #### L 600.32130 ####Test performed at: [place] [address] UR VU Negative Normal Negative [facility] Comment on above: Order Comment: CONSE RVATION Result Comment: CUTO ON=765 Performed By: #### L 600.39875 ####Test performed at: [place] [address] UR TONG Negative Normal Negative [facility] Comment on above: Order Comment: CONSE RVATION Result Comment: CUTO PM=836 Performed By: #### L 600.60315 ####Test performed at: [place] [address] UR LISA/THC Negative Normal Negative [facility] Comment on above: Order Comment: CONSE RVATION Result Comment: CUTO FF=50 Performed By: #### L 600.65112 ####Test performed at: [place] [address] UR CHRISTOPHER Negative Normal Negative [facility] Comment on above: Order Comment: CONSE RVATION Result Comment: CUTO MC=676 Performed By: #### L 600.40844 ####Test performed at: [place] [address] UR ECSTASY Negative Normal Negative [facility] Comment on above: Order Comment: CONSE RVATION Result Comment: CUTO JS=674 Performed By: #### L 600.99990 ####Test performed at: [place] [address] UR METH Negative Normal Negative [facility] Comment on above: Order Comment: CONSE RVATION Result Comment: CUTO RI=643 Performed By: #### L 600.25214 ####Test performed at: [place] [address] UR OPIAT Positive Invalid Interpretation Code Negative [facility] Comment on above: Order Comment: CONSE RVATION Result Comment: CUTO EJ=581 Performed By: #### L 600.93924 ####Test performed at: [place] [address] UR OXYCOCONE Negative Normal Negative [facility] Comment on above: Order Comment: CONSE RVATION Result Comment: CUTO PG=930 Performed By: #### L 600.78556 ####Test performed at: [place] [address] UR PCP Negative Normal Negative [facility] Comment on above: Order Comment: CONSE RVATION Result Comment: CUTO FF=25 Performed By: #### L 600.18939 ####Test performed at: [place] [address] PH TOX 6.0 Normal 5.0-8.0 [facility] Comment on above: Order Comment: CONSE RVATION Performed By: #### L 600.43542 ####Test performed at: [place] [address] TOX COMMENT *PLEASE NOTE: Normal [facility] Comment on above: Order Comment: CONSE RVATION Result Comment: UNCO NFIRMED Toxicology results. For MEDICAL purposes only. Performed By: #### L 600.14438 ####Test performed at: [place] [address] PROTIMEon 01-13-2017 INR Coag RelTime (PPP) 0.95 {INR} Normal 0.00-1.20 [facility] Comment on above: Order Comment: CONSE RVATIONList patient's anticoagulants for PT: NONE SPECIFIED Result Comment: Carlos mmended therapeutic range is an INR of 2.0-3.0 exceptfor prevention of recurrent acute [place] and mechanicalprosthetic heart valve where an INR of 2.5-3.5 isrecommended. Performed By: #### L 300.26976 ####Test performed at: [place] [address] PT SEC 10.1 seconds Normal 9.7-11.5 [facility] Comment on above: Order Comment: CONSE RVATIONList patient's anticoagulants for PT: NONE SPECIFIED Performed By: #### L 300.98694 ####Test performed at: [address] [address] UR BUPREN/NORBUon 01-13-2017 UR BUPREN/NORBU Negative Normal Negative [facility] Comment on above: Order Comment: CONSE RVATION Result Comment: CUTO FF=10 Performed By: #### L 600.12322 ####Test performed at: [address] [address] UR HCG QUALon 01-13-2017 UR HCG QUAL Negative Normal [facility] Comment on above: Order Comment: CONSE RVATION Performed By: #### L 600.40776 ####Test performed at: [place] [address] Vital Signs Date Time Vital Sign Value Performing Clinician Facility 04-25-2025 14:36-0400 Body height 167.6 cm Gurpreet Smart PA-C Work Phone: [facility] 04-25-2025 14:36-0400 Body mass index (BMI) [Ratio] 26.95 kg/m2 Gurpreet Smart PA-C Work Phone: [facility] 04-25-2025 14:36-0400 Body weight 75.75 kg Gurpreet Smart PA-C Work Phone: [facility] 01-28-2025 12:36-0400 Body temperature 97.8 [degF] Dr. Roseline Thakkar MD Work Phone: [facility] 01-28-2025 12:36-0400 Diastolic blood pressure 75 mm[Hg] Dr. Roseline Thakkar MD Work Phone: [facility] 01-28-2025 12:36-0400 Heart rate 62 /min Dr. Roseline Thakkar MD Work Phone: [facility] 01-28-2025 12:36-0400 Respiratory rate 18 /min Dr. Roseline Thakkar MD Work Phone: [facility] 01-28-2025 12:36-0400 SaO2% (BldA) [Mass fraction] 99 % Dr. Roseline Thakkar MD Work Phone: [facility] 01-28-2025 12:36-0400 Systolic blood pressure 126 mm[Hg] Dr. Roseline Thakkar MD Work Phone: [facility] 01-25-2025 23:25-0400 Body height 167.[address] Roseline Thakkar MD Work Phone: [facility] 01-25-2025 23:25-0400 Body mass index (BMI) [Ratio] 25.7 kg/m2 Dr. Roseline Thakkar MD Work Phone: [facility] 01-25-2025 23:25-0400 Body weight 72.[address] Roseline Thakkar MD Work Phone: [facility] 01-25-2025 23:00-0400 Diastolic blood pressure 63 mm[Hg] Dr. Roseline Thakkar MD Work Phone: [facility] 01-25-2025 23:00-0400 Heart rate 54 /min Dr. Roseline Thakkar MD Work Phone: [facility] 01-25-2025 23:00-0400 Respiratory rate 12 /min Dr. Roseline Thakkar MD Work Phone: [facility] 01-25-2025 23:00-0400 SaO2% (BldA) [Mass fraction] 100 % Dr. Roseline Thakkar MD Work Phone: [facility] 01-25-2025 23:00-0400 Systolic blood pressure 97 mm[Hg] Dr. Roseline Thakkar MD Work Phone: [facility] 01-25-2025 22:02-0400 Body temperature 97.6 [degF] Dr. Roseline Thakkar MD Work Phone: [facility] 01-25-2025 19:43-0400 Body height 167.[address] Roseline Thakkar MD Work Phone: [facility] 01-25-2025 19:43-0400 Body mass index (BMI) [Ratio] 25.6 kg/m2 Dr. Roseline Thakkar MD Work Phone: [facility] 01-25-2025 19:43-0400 Body weight [address] Roseline Thakkar MD Work Phone: [facility] 10-18-2024 15:05-0400 Diastolic blood pressure 73 mm[Hg] Amanda Canela MD Work Phone: [facility] 10-18-2024 15:05-0400 Heart rate 77 /min Amanda Canela MD Work Phone: [facility] 10-18-2024 15:05-0400 SaO2% (BldA) [Mass fraction] 98 % Amanda Canela MD Work Phone: [facility] 10-18-2024 15:05-0400 Systolic blood pressure 105 mm[Hg] Amanda Canela MD Work Phone: [facility] 07-28-2024 12:15-0500 Body height 167.6 cm Ramya Guan CNP Work Phone: [facility] 07-28-2024 12:15-0500 Body mass index (BMI) [Ratio] 27.76 kg/m2 Ramya Guan CNP Work Phone: [facility] 07-28-2024 12:15-0500 Body temperature 97.39 [degF] Ramya Guan CNP Work Phone: [facility] 07-28-2024 12:15-0500 Body weight 78.02 kg Ramya Segovia APRN - [employer] Work Phone: [facility] 07-28-2024 12:15-0500 Diastolic blood pressure 72 mm[Hg] Ramya Segovia APRN - [employer] Work Phone: [facility] 07-28-2024 12:15-0500 Heart rate 86 /min Ramya Segovia APRN - [employer] Work Phone: [facility] 07-28-2024 12:15-0500 SaO2% (BldA) [Mass fraction] 98 % Ramya Segovia APRN - [employer] Work Phone: [facility] 07-28-2024 12:15-0500 Systolic blood pressure 116 mm[Hg] Ramya Segovia APRN - [employer] Work Phone: [facility] 03-28-2024 13:50-0400 Body height 167.6 cm Roseline Thakkar DO Work Phone: [facility] 03-28-2024 13:50-0400 Body mass index (BMI) [Ratio] 28.73 kg/m2 Roseline Thakkar DO Work Phone: [facility] 03-28-2024 13:50-0400 Body temperature 97 [degF] Roseline Thakkar DO Work Phone: [facility] 03-28-2024 13:50-0400 Body weight 80.74 kg Roseline Thakkar DO Work Phone: [facility] 03-28-2024 13:50-0400 Diastolic blood pressure 66 mm[Hg] Roseline Ariane DO Work Phone: [facility] 03-28-2024 13:50-0400 Heart rate 64 /min Roseline Thakkar DO Work Phone: [facility] 03-28-2024 13:50-0400 SaO2% (BldA) [Mass fraction] 95 % Roseline Gagnonugh DO Work Phone: [facility] 03-28-2024 13:50-0400 Systolic blood pressure 100 mm[Hg] Roseline Ariane DO Work Phone: [facility] 01-11-2024 15:12-0400 Body height 167.6 cm Jennifer Falconon PA-C Work Phone: [facility] 01-11-2024 15:12-0400 Body mass index (BMI) [Ratio] 28.89 kg/m2 Jennifer Rocha PA-C Work Phone: [facility] 01-11-2024 15:12-0400 Body weight 81.19 kg Jennifer Rocha PA-C Work Phone: [facility] 01-11-2024 15:12-0400 Diastolic blood pressure 65 mm[Hg] Jennifer Rocha PA-C Work Phone: [facility] 01-11-2024 15:12-0400 Heart rate 64 /min Jennifer Falconon PA-C Work Phone: [facility] 01-11-2024 15:12-0400 SaO2% (BldA) [Mass fraction] 96 % Jennifer Rocha PA-C Work Phone: [facility] 01-11-2024 15:12-0400 Systolic blood pressure 95 mm[Hg] Jennifer Rocha PA-C Work Phone: [facility] 11-12-2023 11:39-0400 Body height 167.6 cm Roseline Ariane DO Work Phone: [facility] 11-12-2023 11:39-0400 Body mass index (BMI) [Ratio] 29.7 kg/m2 Roseline Ariane DO Work Phone: [facility] 11-12-2023 11:39-0400 Body weight 83.46 kg Roseline Ariane DO Work Phone: [facility] 11-12-2023 11:39-0400 Diastolic blood pressure 79 mm[Hg] Roseline Thakkar DO Work Phone: [facility] 11-12-2023 11:39-0400 Heart rate 69 /min Roseline Thakkar DO Work Phone: [facility] 11-12-2023 11:39-0400 SaO2% (BldA) [Mass fraction] 96 % Roseline Thakkar DO Work Phone: [facility] 11-12-2023 11:39-0400 Systolic blood pressure 120 mm[Hg] Roseline Thakkar DO Work Phone: [facility] 06-25-2023 16:46-0500 Body temperature 97.81 [degF] Ashlee Callow [employer]ING [employer] Work Phone: [facility] 06-25-2023 16:46-0500 Body weight 77.11 kg Ashlee Callow [employer] Work Phone: [facility] 06-25-2023 16:46-0500 Diastolic blood pressure 70 mm[Hg] Ashlee Callow [employer] Work Phone: [facility] 06-25-2023 16:46-0500 Heart rate 75 /min Ashlee Callow [employer] Work Phone: [facility] 06-25-2023 16:46-0500 Respiratory rate 20 /min Ashlee Callow [employer] Work Phone: [facility] 06-25-2023 16:46-0500 SaO2% (BldA) [Mass fraction] 98 % Ashlee Callow [employer] Work Phone: [facility] 06-25-2023 16:46-0500 Systolic blood pressure 109 mm[Hg] Ashlee Callow [employer] Work Phone: [facility] 05-12-2023 15:46-0400 Body temperature 97.39 [degF] Jen Gore [employer]ING [employer] Work Phone: [facility] 05-12-2023 15:46-0400 Body weight 71.12 kg Jen Gore APRN.[employer] Work Phone: [facility] 05-12-2023 15:46-0400 Diastolic blood pressure 74 mm[Hg] Jen Gore [employer] Work Phone: [facility] 05-12-2023 15:46-0400 Heart rate 74 /min Jen Gore [employer] Work Phone: [facility] 05-12-2023 15:46-0400 Respiratory rate 21 /min Jen Gore [employer] Work Phone: [facility] 05-12-2023 15:46-0400 SaO2% (BldA) [Mass fraction] 99 % Jen Gore APRN.[employer] Work Phone: [facility] 05-12-2023 15:46-0400 Systolic blood pressure 90 mm[Hg] Jen Gore [employer]ING P[employer] Work Phone: [facility] 03-03-2023 11:00-0400 Body temperature 97.7 [degF] Dr. Fabio Mcbride Work Phone: [facility] 03-03-2023 11:00-0400 Diastolic blood pressure 71 mm[Hg] Dr. Fabio Mcbride Work Phone: [facility] 03-03-2023 11:00-0400 Heart rate 74 /min Dr. Fabio Mcbride Work Phone: [facility] 03-03-2023 11:00-0400 Respiratory rate 18 /min Dr. Fabio Mcbride Work Phone: [facility] 03-03-2023 11:00-0400 SaO2% (BldA) [Mass fraction] 100 % Dr. Fabio Mcbride Work Phone: [facility] 03-03-2023 11:00-0400 Systolic blood pressure 116 mm[Hg] Dr. Fabio Mcbride Work Phone: [facility] 03-01-2023 13:37-0400 Body height 167.[address] Fabio Mcbride Work Phone: [facility] 03-01-2023 13:37-0400 Body weight 67.[address] Fabio Mcbride Work Phone: [facility] 03-01-2023 02:58-0400 Body mass index (BMI) [Ratio] 23.8 kg/m2 Dr. Fabio Mcbride Work Phone: [facility] 03-01-2023 01:51-0400 Body temperature 97.9 [degF] [facility] 03-01-2023 01:51-0400 Diastolic blood pressure 86 mm[Hg] [facility] 03-01-2023 01:51-0400 Heart rate 80 /min [facility] 03-01-2023 01:51-0400 Respiratory rate 16 /min [facility] 03-01-2023 01:51-0400 SaO2% (BldA) [Mass fraction] 98 % [facility] 03-01-2023 01:51-0400 Systolic blood pressure 117 mm[Hg] [facility] 03-01-2023 00:55-0400 Body height 165.[address] [facility] 03-01-2023 00:55-0400 Body mass index (BMI) [Ratio] 27.9 kg/m2 [facility] 03-01-2023 00:55-0400 Body weight 76.[address] [facility] Encounters Encounter Date Encounter Type Care Provider Facility Start: 04-25-2025 End: 04-25-2025 Office outpatient new 30 minutes Gurpreet Jessica Smart PA-C Work Phone: [facility] Comment on above: Bilateral sensorineu ral hearing loss (Primary Dx) Start: 04-25-2025 End: 04-25-2025 ambulatory WASHOUGAL Jessica [facility] Start: 03-29-2025 End: 03-29-[address] Roseline Thakkar MD Work Phone: -Laboratory Specimen Start: 03-29-2025 End: 03-29-2025 Patient encounter procedure Aurelia DIMAS -Laboratory Specimen Work Phone: Start: 03-29-2025 End: 03-29-2025 ambulatory Roseline Ambrosio Ariane Facility:[facility] Start: 01-28-2025 Non-patient / Non-visit Dr. Cleve Nguyen [facility] Work Phone: Start: 01-27-2025 Non-patient / Non-visit [facility]. Cleve ramsey [facility] Work Phone: Start: 01-26-2025 Non-patient / Non-visit Dr. Cleve ramsey [facility] Work Phone: Start: 01-25-2025 ambulatory Yasmani Jimenez ility:[facility] Start: 01-25-2025 End: 01-28-2025 Evaluation and management of inpatient Dr. Yasmani Yanes DO -Medical Surgical 3 Work Phone: Start: 11-28-2024 End: 12-04-2024 ambulatory Em Thornton RN [facility] Clinical Communication Start: 11-28-2024 End: 12-04-2024 Patient encounter procedure [facility] Start: 11-22-2024 End: 11-23-2024 Refill Roseline Thakkar DO Work Phone: [facility] Comment on above: Anemia, unspecified type Start: 10-18-2024 End: 10-18-2024 Office outpatient visit 25 minutes Amanda Canela MD Work Phone: [facility] Comment on above: Acute bilateral knee pain (Primary Dx); Family history of rheumatoid arthritis; Varicose veins of both lower extremities with pain Start: 10-18-2024 End: 10-18-2024 ambulatory ROSELINE THAKKAR [facility] Start: 09-04-2024 End: 09-04-2024 ambulatory [facility] Gall[facility] Start: 09-04-2024 End: 09-04-2024 Patient encounter procedure Anna Gallardo [facility] Start: 07-31-2024 End: 07-31-2024 Emergency department patient visit SIHRALoretta RIDER Facility:[facility] Start: 07-28-2024 End: 07-28-2024 ambulatory ROSELINE THAKKAR [facility] Start: 07-28-2024 End: 07-28-2024 Office outpatient visit 10 minutes Ramya Segovia [employer] - [employer] Work Phone: [facility] Comment on above: Seborrheic dermatiti s of scalp Start: 07-28-2024 End: 07-28-2024 Office outpatient visit 15 minutes Ramya Segovia [employer] - [employer] Work Phone: [facility] Comment on above: Seborrheic dermatiti s of scalp Start: 06-23-2024 End: 06-26-2024 Telephone encounter Jennifer Rocha PA-C Work Phone: [facility] Clinical Communication Comment on above: Test Scheduling Start: 06-05-2024 End: 06-14-2024 Refill Roseline Thakkar DO Work Phone: [facility] Comment on above: Essential (primary) hypertension Med Refill Start: 04-13-2024 End: 04-13-2024 Emergency department patient visit MS. VERN AUGUSTE Facility:[id number] Start: 03-28-2024 End: 03-28-2024 Office outpatient visit 25 minutes Roseline Thakkar DO Work Phone: [facility] Comment on above: Bipolar I disorder ( HCC) (Primary Dx); Rash; Dysuria; Gastroesophageal reflux disease without esophagitis Start: 03-28-2024 End: 03-28-2024 ambulatory ROSELINE THAKKAR [facility] Start: 03-15-2024 End: 03-21-2024 ambulatory Roya Carlin RN [facility] Clinical Communication Start: 03-15-2024 End: 03-21-2024 Patient encounter procedure Roya Carlin RN [facility] Clinical Communication Start: 03-03-2024 End: 03-03-2024 Emergency department patient visit ANNY MARK MD Facility:[id number] Start: 01-11-2024 End: 01-11-2024 ambulatory JENNIFER ROCHA [facility] Start: 01-11-2024 End: 01-11-2024 Office outpatient visit 10 minutes Jennifer Rocha PA-C Work Phone: [facility] Comment on above: Lymphadenopathy, cer vical (Primary Dx) Start: 01-11-2024 End: 01-11-2024 Office outpatient visit 15 minutes Jennifer Rocha PA-C Work Phone: [facility] Comment on above: Lymphadenopathy, cer vical (Primary Dx) Start: 12-07-2023 Telephone encounter Roseline alberto DO Work Phone: [facility] Comment on above: palpable lymph nodes Start: 11-12-2023 End: 11-12-2023 Office outpatient new 45 minutes Roseline Thakkar DO Work Phone: [facility] Comment on above: Scalp lesion (Primar y Dx); Essential (primary) hypertension; Pure hypercholesterolemia; Encounter for screening mammogram for malignant neoplasm of breast; Elevated serum glucose; Mild intermittent asthma without complication; Gastroesophageal reflux disease without esophagitis; Rash; Anemia, unspecified type Start: 09-23-2023 Telephone encounter Shira cox MD Work Phone: [facility] Communication Comment on above: Med Refill Start: 09-17-2023 End: 09-17-2023 Emergency department patient visit CARLTON SOTO MD Facility:[id number] Start: 09-16-2023 ambulatory Jennyfer Giron RN [facility] Clinical Communication Start: 09-16-2023 Patient encounter procedure Jennyfer Jon RN [facility] Clinical Communication Start: 07-07-2023 Refill Shira moody MD Work Phone: [facility] Comment on above: Essential (primary) hypertension Start: 06-25-2023 End: 06-25-2023 ambulatory JEN GORE Facility:[facility] Start: 06-25-2023 End: 06-25-2023 Patient encounter procedure Ashlee Callow [employer] Work Phone: [facility] Comment on above: Itching (Primary Dx) Start: 05-12-2023 End: 05-12-2023 ambulatory [facility] Facility:[facility] Start: 05-12-2023 End: 05-12-2023 Subsequent hospital visit by physician Xr [facility] Work Phone: Radiology Comment on above: Acute cough [R05.1] Start: 05-12-2023 End: 05-12-2023 Patient encounter procedure Jen Gore [employer] Work Phone: [facility] Comment on above: Acute cough (Primary Dx); History of asthma Start: 03-03-2023 Non-patient / Non-visit Dr. Luis Enrique Mcbride Work Phone: [facility] Work Phone: Start: 03-02-2023 Non-patient / Non-visit Dr. Luis Enrique Mcbride Work Phone: [facility] Work Phone: Start: 03-01-2023 End: 03-03-2023 Evaluation and management of inpatient [facility] Work Phone: Start: 12-22-2022 End: 12-23-2022 Emergency department patient visit MEGHNA [facility] Facility:[facility] Start: 09-16-2022 Don moody MD Work Phone: [facility] Start: 07-24-2022 ambulatory Kalee meadows [facility] Start: 07-24-2022 Patient encounter procedure Kalee Patel RN [facility] Clinical Communication Start: 07-23-2022 ambulatory Marva Dye [facility] Start: 07-23-2022 Patient encounter procedure Marva Dye [facility] Start: 09-16-2021 FQ visit new patient Mica Pearson [place] Work Phone: XT-Sdtcxtrmo-Ysarz MAC[address] [place] Work Phone: Start: 01-18-2019 Patient encounter procedure Susan Sommers [place]-Xzbxdcger-Btsfq Work Phone: Start: 12-01-2018 Patient encounter procedure Susan Sommers DD-Zcxqfqdke-Rcyvg Work Phone: Start: 10-21-2018 Patient encounter procedure Kathleen [facility] Start: 10-14-2018 Patient encounter procedure Susan Sommers Facility:[id number] Start: 09-27-2018 Patient encounter procedure Susan Sommers Facility:[id number] Start: 09-06-2018 [facility] Start: 09-02-2018 Patient encounter procedure Susan Sommers Facility:[id number] Start: 08-05-2018 Patient encounter procedure [facility] Start: 07-08-2018 Patient encounter procedure [facility] Start: 05-20-2018 Patient encounter procedure MCKENZIE M YANI [facility] Start: 04-12-2018 Patient encounter procedure Susan Sommers IN-Vxxdpwfvb-Ncgqd Work Phone: Start: 09-24-2017 Patient encounter procedure Susan Sommers PR-Hkqhunqmb-Vnppf Work Phone: Start: 09-10-2017 Ambulatory Pro Ellis Facility:[facility] Start: 09-10-2017 Patient encounter procedure Susan Sommers XT-Uvizuqmmq-Sndip Work Phone: Start: 07-23-2017 Ambulatory Pro Ellis Facility:[facility] Start: 07-23-2017 Patient encounter procedure Susan Sommers KU-Cxlryioph-Jlzyw Work Phone: Start: 07-09-2017 Ambulatory Pro Ellis Facility:[facility] Start: 07-09-2017 Patient encounter procedure Susan Sommers IF-Rwunvnuue-Hyyfg Work Phone: Start: 01-13-2017 End: 01-15-2017 Evaluation and management of inpatient Nba Perez Facility:[facility] Start: 01-13-2017 Ambulatory Nba Perez Facilit y:[facility] Start: 01-05-2017 End: 01-05-2017 Emergency department patient visit [facility] Start: 05-01-2016 End: 05-01-2016 Emergency department patient visit UNKNOWN PROVIDER Facility:[facility] Procedures Date Procedure Procedure Detail Performing Clinician Start: 03-29-[address] Roseline Thakkar MD Work Phone: Comment on above: Test Ordered: [id number] NuSwab Vaginitis Pl us (VG+)Test(s) 195640- Atopobium vaginae; 235809- BVAB 2;710038- Megasphaera 1was developed and its performance characteristicsdetermined by [email or web address]. It has not been cleared or approvedby the Food and Drug Administration.Test(s) 754105-Xpdaihf albicans, FRED; 804682-Pnnrwni glabrata, NAAwas developed and its performance characteristicsdetermined by [email or web address]. It has not been cleared or approvedby the Food and Drug Administration. Atopobium vaginae High - 2 [A ] Score =G Reference Range: . BVAB 2 Low - 0 Score =G Reference Range: . Megasphaera 1 High - 2 [A ] Score =G Reference Range: .Calculate total score by adding the 3 individual bacterialvaginosis (BV) marker scores together. Total score isinterpreted as follows:Total score 0-1: Indicates the absence of BV.Total score 2: Indeterminate for BV. Additional clinical data should be evaluated to establish a diagnosis.Total score 3-6: Indicates the presence of BV.Susan albicans, FRED Negative =G Reference Range: NegativeCandida glabrata, FRED Negative =G Reference Range: NegativeTrich vag by FRED Negative =G Reference Range: NegativeChlamydia trachomatis, FRED Negative =G Reference Range: NegativeNeisseria gonorrhoeae, FRED Negative =G Reference Range: NegativePerformed at: =G - [facility] [address] [place] [id number] Director: Rubina Wakefield MD, Phone: [phone] at: CB - [facility] [id number] [place], [place] [id number] Director: Alistair Triana PhD, Phone: [phone] Start: 03-29-2025 Urnls dip stick/tablet reagent auto microscopy Dr. Roseline Thakkar MD Work Phone: Start: 03-29-[address] Roseline Thakkar MD Work Phone: Start: 01-25-[address] Maricel Thakkar MD Work Phone: Start: 01-25-2025 Methadone measurement, urine Dr. Josue Thakkar MD Work Phone: Start: 07-28-2024 Follow-up visit Follow-up RAMYA SEGOVIA Start: 03-28-2024 Urnls dip stick/tablet rgnt auto w/o microscopy Roseline Thakkar DO Work Phone: Start: 11-23-2023 Lipid 1996 panel - Serum or Plasma Maricel Thakkar DO Work Phone: Start: 05-12-2023 Radiologic exam chest 2 views Jen martins APRN.[employer]TER Work Phone: Start: 05-10-2020 Microscopic observation [Identifier] in Cervix by Cyto stain Marva Dye RN Start: 08-02-2019 Colonoscopy Shira Rider MD Work Phone: Plan of Treatment Date Care Activity Detail Author Start: 12-19-2047 RSV Immunization for Adults (1 - 1-dose 75+ series) RSV Immunization for Adults (1 - 1-dose 75+ series) [facility] Start: 2032 RSV Immunization aged 60 or older (1 - 1-dose 60+ series) RSV Immunization aged 60 or older (1 - 1-dose 60+ series) [facility] Start: 08-02-2029 Screening for malignant neoplasm of colon [facility] Start: 11-22-2028 Lipid panel Lipid Panel [facility] Start: 04-05-2028 HPV Testing HPV Testing [facility] Start: 04-05-2028 Pap Testing Pap Testing [facility] Start: 04-05-2028 Screening for malignant neoplasm of cervix Cervical Cancer Screening [facility] Start: 11-22-2026 Diabetes mellitus screening Diabetes Screening [facility] Start: 05-13-2025 Depression Monitoring Depression Monitoring [facility] Start: 03-19-2025 COVID-19 Vaccine ( season) COVID-19 Vaccine () [facility] Start: 03-19-2025 Influenza vaccination [facility] Start: 01-28-2025 Patient discharge [facility] Start: 01-27-2025 [facility] Start: 01-27-2025 Assessment using assessment scale [facility] Start: 01-25-2025 Ambulation without limitation [facility] Start: 01-25-2025 Assessment of risk of venous thromboembolism [facility] Start: 01-25-2025 Insertion of catheter into peripheral vein [facility] Start: 01-25-2025 Oxygen therapy [facility] Start: 01-25-2025 Providing care according to standard [facility] Start: 01-25-2025 Referral to service [facility] Start: 01-25-2025 [facility] Start: 01-25-2025 Following clinical pathway protocol [facility] Start: 01-25-2025 Hospital admission, emergency, from emergency room, medical nature [facility] Start: 01-25-2025 Verification routine [facility] Start: 01-25-2025 Admission procedure [facility] Start: 01-25-2025 [facility] Start: 11-22-2024 Diabetes mellitus screening Diabetes Screening [facility] Start: 11-14-2024 End: 11-14-2024 Patient encounter procedure [facility] Medical [facility] Start: 10-18-2024 End: 10-18-2025 C reactive protein [Mass/volume] in Serum or Plasma C-reactive protein Lab Routine Acute bilateral knee pain Family history of rheumatoid arthritis Expected: 10/18/2024 (Approximate), Expires: 10/18/2025 [facility] Comment on above: Expected: 10/18/2024 (Approximate), Expi res: 10/18/2025 Start: 10-18-2024 End: 10-18-2025 Erythrocyte sedimentation rate Sedimentation rate, automated Lab Routine Acute bilateral knee pain Family history of rheumatoid arthritis Expected: 10/18/2024 (Approximate), Expires: 10/18/2025 [facility] Comment on above: Expected: 10/18/2024 (Approximate), Expi res: 10/18/2025 Start: 10-18-2024 End: 10-18-2025 Magnesium [Mass/volume] in Serum or Plasma Magnesium Lab Routine Acute bilateral knee pain Expected: 10/18/2024 (Approximate), Expires: 10/18/2025 [facility] Comment on above: Expected: 10/18/2024 (Approximate), Expi res: 10/18/2025 Start: 10-18-2024 End: 10-18-2025 Nuclear Ab [Titer] in Serum by Immunofluorescence ABBIE Lab Routine Acute bilateral knee pain Family history of rheumatoid arthritis Expected: 10/18/2024 (Approximate), Expires: 10/18/2025 [facility] Comment on above: Expected: 10/18/2024 (Approximate), Expi res: 10/18/2025 Start: 10-18-2024 End: 10-18-2025 Renal function 2000 panel - Serum or Plasma Renal function panel Lab Routine Acute bilateral knee pain Expected: 10/18/2024 (Approximate), Expires: 10/18/2025 [facility] Comment on above: Expected: 10/18/2024 (Approximate), Expi res: 10/18/2025 Start: 10-18-2024 End: 10-18-2025 Rheumatoid factor [Units/volume] in Serum or Plasma Rheumatoid factor Lab Routine Acute bilateral knee pain Family history of rheumatoid arthritis Expected: 10/18/2024 (Approximate), Expires: 10/18/2025 [facility] Comment on above: Expected: 10/18/2024 (Approximate), Expi res: 10/18/2025 Start: 10-18-2024 End: 10-18-2025 XR Knee - bilateral 4 Views XR knee 4+ views bilateral Imaging Routine Acute bilateral knee pain Expected: 10/18/2024, Expires: 10/18/2025 [facility] Work Phone: Comment on above: Expected: 10/18/2024, Expires: Start: 07-04-2024 End: 07-04-2024 Patient encounter procedure 07/04/2024 2:00 PM EST Office Visit [facility] [address] [place] [address] [place] [id number] Ramya Segovia, [employer] [address] [place] [address] [place] [address] [facility] Start: 06-07-2024 Subsequent hospital visit by physician 06/07/2024 1:00 PM EST Hospital Encounter [facility] [address] [place] [address] [place] [phone] Jennifer Rocha PA-C [address] [place] [address] [place] [address] [facility] Start: 05-13-2024 Depression Monitoring Depression Monitoring [facility] Start: 03-28-2024 End: 03-28-2025 Bacteria identified in Urine by Culture Urine culture Microbiology Routine Dysuria Expected: 03/28/2024 (Approximate), Expires: 03/28/2025 [facility] Work Phone: Comment on above: Expected: 03/28/2024 (Approximate), Expi res: 03/28/2025 Start: 03-28-2024 End: 03-28-2024 Patient encounter procedure 03/28/2024 1:40 PM EDT Office Visit [facility] [address] [place] [address] [place] [phone] Roseline Thakkar DO [address] [place] [address] [place], [place] [id number] [facility] Start: 03-19-2024 COVID-19 Vaccine ( season) COVID-19 Vaccine () [facility] Start: 03-19-2024 COVID-19 Vaccine ( season) COVID-19 Vaccine ( season) [facility] Start: 03-19-2024 Influenza vaccination [facility] Start: 02-11-2024 End: 02-11-2024 Patient encounter procedure 02/11/2024 11:20 AM EDT Office Visit [facility] [address] [place] [address] [place] [phone] Roseline Thakkar DO [address] [place] [address] [place] [address] [facility] Start: 01-11-2024 End: 01-10-2025 US Head and neck soft tissue US head neck soft tissue Imaging Routine Lymphadenopathy, cervical Expected: 01/11/2024, Expires: 01/10/2025 [facility] Work Phone: Comment on above: Expected: 01/11/2024, Expires: Start: 12-16-2023 End: 12-16-2023 Patient encounter procedure 12/16/2023 2:40 PM EDT Office Visit [facility] [address] [place] [address] [place] [phone] Roseline Thakkar DO [address] [place] [address] [place] [address] [facility] Start: 11-12-2023 End: 11-11-2024 CBC panel - Blood by Automated count CBC Lab Routine Essential (primary) hypertension Expected: 11/12/2023 (Approximate), Expires: 11/11/2024 [facility] Comment on above: Expected: 11/12/2023 (Approximate), Expi res: 11/11/2024 Start: 11-12-2023 End: 11-11-2024 Comprehensive metabolic 1998 panel - Serum or Plasma Comprehensive metabolic panel Lab Routine Essential (primary) hypertension Expected: 11/12/2023 (Approximate), Expires: 11/11/2024 [facility] Comment on above: Expected: 11/12/2023 (Approximate), Expi res: 11/11/2024 Start: 11-12-2023 End: 01-11-2025 DBT Breast - bilateral screening Bilateral screening mammogram with tomosynthesis Imaging Routine Encounter for screening mammogram for malignant neoplasm of breast Expected: 11/12/2023, Expires: 01/11/2025 [facility] Comment on above: Expected: 11/12/2023, Expires: Start: 11-12-2023 End: 11-11-2024 Hemoglobin A1c measurement Hemoglobin A1c Lab Routine Elevated serum glucose Expected: 11/12/2023 (Approximate), Expires: 11/11/2024 [facility] Work Phone: Comment on above: Expected: 11/12/2023 (Approximate), Expi res: 11/11/2024 Start: 11-12-2023 End: 11-11-2024 Lipid 1996 panel - Serum or Plasma Lipid panel Lab Routine Pure hypercholesterolemia Expected: 11/12/2023 (Approximate), Expires: 11/11/2024 [facility] Comment on above: Expected: 11/12/2023 (Approximate), Expi res: 11/11/2024 Start: 11-12-2023 End: 11-11-2024 Thyrotropin [Units/volume] in Serum or Plasma TSH Lab Routine Essential (primary) hypertension Expected: 11/12/2023 (Approximate), Expires: 11/11/2024 [facility] Comment on above: Expected: 11/12/2023 (Approximate), Expi res: 11/11/2024 Start: 09-29-2023 End: 09-29-2023 Patient encounter procedure 09/29/2023 2:00 PM EDT Office Visit [facility] [address] [place] [address] [place] [address] Roseline Thakkar DO [address] [place] [address] [place] [address] [facility] Start: 07-27-2023 End: 07-27-2023 Patient encounter procedure 07/27/2023 11:00 AM EST Office Visit [facility] [address] [place] [address] [place] [address] Shira Rider MD [address] [facility] [address] [place] [address] [facility] Start: 05-10-2023 Screening for malignant neoplasm of cervix [facility] Start: 03-19-2023 COVID-19 Vaccine ( season) COVID-19 Vaccine () [facility] Start: 03-19-2023 Influenza vaccination Influenza Vaccine (#1) [facility] Start: 03-03-2023 Patient discharge [facility] Start: 03-02-2023 End: 03-03-2023 [facility] Start: 03-02-2023 Assessment using assessment scale [facility] Start: 03-02-2023 Provision of activity privileges [facility] Start: 03-01-2023 End: 03-02-2023 [facility] Start: 03-01-2023 Following clinical pathway protocol [facility] Start: 03-01-2023 Assessment of risk of venous thromboembolism [facility] Start: 03-01-2023 Inhalation therapy procedure [facility] Start: 03-01-2023 Introduction of urinary catheter [facility] Start: 03-01-2023 Notification of physician [facility] Start: 03-01-2023 Oxygen therapy [facility] Start: 03-01-2023 Provision of activity privileges [facility] Start: 03-01-2023 Referral to service [facility] Start: 03-01-2023 Vital signs measurements [facility] Start: 03-01-2023 Admission procedure [facility] Start: 03-01-2023 [facility] Start: 03-01-2023 Patient referral to dietitian [facility] Start: 2022 Pneumococcal vaccination Pneumococcal Vaccine (1 of 1 - PCV) [facility] Start: 2022 Shingrix Vaccine (1 of 2) Shingrix Vaccine (1 of 2) [facility] Start: 2022 Zoster Vaccines (1 of 2) Zoster Vaccines (1 of 2) [facility] Start: 09-18-2022 Diabetes mellitus screening Diabetes Screening [facility] Start: 07-19-2022 Depression Assessment Depression Assessment [facility] Start: 05-14-2022 Yearly Adult Physical Yearly Adult Physical [facility] Start: 03-19-2022 Influenza vaccination Influenza Vaccine (#1) [facility] Start: 2017 Cologuard (FIT-DNA) Cologuard (FIT-DNA) [facility] Start: 2017 Colonoscopy Colonoscopy [facility] Start: 2017 Colorectal Cancer Screening Colorectal Cancer Screening [facility] Start: [address] Colonography [facility] Start: 2017 Diabetes Screening Diabetes Screening [facility] Start: 2017 Fecal Occult Blood Fecal Occult Blood [facility] Start: 2017 Lipid 1996 panel - Serum or Plasma Lipid Screening [facility] Start: 2017 Lipid panel Lipid Screening [facility] Start: 2017 Screening for malignant neoplasm of colon [facility] Start: 2017 Sigmoidoscopy Sigmoidoscopy [facility] Start: 2012 Mammography Mammogram Screening [facility] Start: 2012 Screening for malignant neoplasm of breast [facility] Start: 07-20-2012 DTaP/Tdap/Td Vaccines (1 - Tdap) DTaP/Tdap/Td Vaccines (1 - Tdap) [facility] Start: 2002 Screening for malignant neoplasm of cervix HPV/Cotest [facility] Start: 1993 Screening for malignant neoplasm of cervix HPV/Cotest [facility] Start: 12-19-1991 DTaP/Tdap/Td Vaccines (1 - Tdap) DTaP/Tdap/Td Vaccines (1 - Tdap) [facility] Start: 12-19-1991 Hepatitis A Vaccines (1 of 2 - Risk 2-dose series) Hepatitis A Vaccines (1 of 2 - Risk 2-dose series) [facility] Start: 12-19-1991 Hepatitis B Vaccine (1 of 3 - 19+ 3-dose series) Hepatitis B Vaccine (1 of 3 - 19+ 3-dose series) [facility] Start: 12-19-1991 Hepatitis B Vaccines (1 of 3 - 19+ 3-dose series) Hepatitis B Vaccines (1 of 3 - 19+ 3-dose series) [facility] Start: 12-19-1991 Pneumococcal Vaccine: 50+ Years (1 of 2 - PCV) Pneumococcal Vaccine: 50+ Years (1 of 2 - PCV) [facility] Start: 12-19-1991 Urine microalbumin profile DTaP,Tdap,Td Vaccine (1 - Tdap) [facility] Start: 1990 Anxiety Screening Anxiety Screening [facility] Start: 1990 Depression Screening Depression Screening [facility] Start: 1990 Hepatitis C screening Hepatitis C Screening [facility] Start: 1984 Depresssion Monitoring Depresssion Monitoring [facility] Start: 1978 Pneumococcal vaccination [facility] Start: 1978 Pneumococcal Vaccine: Pediatrics (0 to 5 Years) and At-Risk Patients (6 to 64 Years) (1 of 2 - PCV) Pneumococcal Vaccine: Pediatrics (0 to 5 Years) and At-Risk Patients (6 to 64 Years) (1 of 2 - PCV) [facility] Start: 1973 Hepatitis A Vaccines (1 of 2 - Risk 2-dose series) Hepatitis A Vaccines (1 of 2 - Risk 2-dose series) [facility] Start: 1973 MMR Vaccines (1 of 1 - Standard series) MMR Vaccines (1 of 1 - Standard series) [facility] Start: 06-19-1973 Covid-19 Vaccine (#1) Covid-19 Vaccine (#1) [facility] Start: 1972 Hepatitis B Vaccine (1 of 3 - 3-dose series) Hepatitis B Vaccine (1 of 3 - 3-dose series) [facility] Start: 1972 Hepatitis B Vaccines (1 of 3 - 3-dose series) Hepatitis B Vaccines (1 of 3 - 3-dose series) [facility] Start: 1972 Lipid panel Lipid Panel [facility] Start: 1972 Screening for malignant neoplasm of colon [facility] HIV 1+2 Ab+HIV1 p24 Ag [Presence] in Serum or Plasma by Immunoassay [facility] Patient referral [facility] Work Phone: PCR for Hepatitis C [facility] Treponema sp Ab [Pre sence] in Serum [facility] Immunizations Immunization Date Immunization Notes Care Provider Fa edith 05-01-2013 influenza virus vaccine, unspecified formulation Shira Rider MD Work Phone: [facility] 04-18-2013 influenza, injectabl e, quadrivalent, preservative free Dr. Roseline Thakkar MD Work Phone: [facility] 07-19-2012 tetanus and diphther ia toxoids, adsorbed, preservative free, for adult use (2 Lf of tetanus toxoid and 2 Lf of diphtheria toxoid) Dr. Roseline Thakkar MD Work Phone: [facility] 07-19-2012 tetanus and diphther ia toxoids, not adsorbed, for adult use Jennyfer Jon RN [facility] 07-19-2012 tuberculin skin test ; purified protein derivative solution, intradermal Jennyfer Jon RN [facility] Payers Date Payer Category Payer Self-pay [id number] 2023 Medicaid HMO [employer] [facility] [id number] 2023 Unknown [id number] 2023 Medicaid (Managed Care) [employer] [id number] 2022 Unknown [id number] 2022 Medicaid [id number] 2016 Unknown [id number] 2013 Medicaid [id number] 2008 Unknown 1972 Unknown [id number] 2.16.840.1.654370.3.579.2. 1046 1972 Unknown [id number] 2.16.840.1.776310.3.579.2. 6 1972 Unknown [id number] 2.16.840.1.975769.3.579.2. 6 1972 Unknown [id number] 2.16.840.1.077760.3.579.2. 8 1972 Unknown [id number] 2.16.840.1.622588.3.579.2. 8 1972 Unknown [id number] 2.16.840.1.188225.3.579.2. 8 1972 Unknown [id number] 2.16.840.1.961571.3.579.2. 8 1972 Unknown [id number] 2.16.840.1.859492.3.579.2. 668 1972 Unknown [id number] 2.16.840.1.994578.3.579.2. 732 1972 Unknown [id number] 2.16.840.1.244776.3.579.2. 159 1972 Unknown [id number] 2.16.840.1.411446.3.579.2. 159 1972 Unknown [id number] 2.16.840.1.502658.3.579.2. 159 1972 Unknown [id number] 2.16.840.1.364459.3.579.2. 1244 1972 Unknown [id number] 2.16.840.1.417215.3.579.2. 1244 Unknown [id number] 2.16.840.1.065327.3.579.2. 462 Unknown [id number] 2.16.840.1.902169.3.579.2. 462 Unknown [id number] 2.16.840.1.977928.3.579.2. 462 Unknown [id number] 2.16.840.1.109772.3.579.2. 462 Unknown [id number] 2.16.840.1.479254.3.579.2. 462 Unknown [id number] 2.16.840.1.747023.3.579.2. 462 Social History Date Type Detail Facility Start: 05-12-2023 End: 11-12-2023 Former smoker Former smoker [id number] [place] Work Phone: Start: 03-01-2023 End: 03-01-2023 Tobacco smoking status [facility] Unknown if ever smoked [facility] Start: 03-11-2019 None [facility] Start: 03-11-2019 Spouse/ Signif icant Other [facility] Start: 1970 Sex Assigned At Female W [facility] Start: 05-12-2023 End: 01-25-2025 Tobacco smoking status NCIS Smokes tobacco daily [facility] History of tobacco use Pipe Smoker [facility] History of tobacco use Passive smoker [facility] Start: 05-12-2023 End: 02-11-2024 Tobacco use and exposure Smokeless tobacco non-user [facility] Start: 05-12-2023 End: 11-12-2023 Tobacco use panel [facility] Start: 1970 Sex Assigned At Not on file S [facility] Start: 01-11-2024 End: 02-11-2024 Tobacco smoking status NHIS Ex-smoker [facility] End: 11-06-2014 History of tobacco use Current smoker [facility] End: 11-06-2014 History of tobacco use Cigarette Smoker [facility] Start: 07-07-2022 End: 11-14-2024 Alcohol intake Current non-drinker of alcohol (finding) [facility] Has the [employer], [employer], oil, or water company threatened to shut off services in your home in past 12Mo No [facility] Do you belong to any clubs or organizations such as roman catholic groups, unions, fraternal or athletic groups, or school groups? Yes listedplaces [facility] Are you now , , , , never or living with a partner? Never [facility] How often to you hav e a drink containing alcohol? Never [facility] Start: 06-12-2022 How many standard drinks containing alcohol do you have on a typical day? Patient does not drink [facility] How hard is it for y ou to pay for the very basics like food, housing, medical care, and heating Somewhat hard listedplaces [facility] Do you feel stress - tense, restless, nervous, or anxious, or unable to sleep at night because your mind is troubled all the time - these days [OSQ] To some extent [facility] (I/We) worried wheth er (my/our) food would run out before (I/we) got money to buy more. Sometimes true [facility] Start: 02-16-2022 Sex Female (finding) [facility] Start: 04-25-2025 Tobacco smoking stat us NHIS Never smoked tobacco [facility] Work Phone: Start: 04-25-2025 Alcoholic beverage intake Ex-drinker (finding) [facility] Work Phone: NEGATED: Highlighted row - - [id number] Work Phone: Goals Date Patient Goal Desired Activity /State Functional Status Date Assessment Result Facility 04-25-2025 Functional status [facility] 04-25-2025 [facility] Work Phone: 01-28-2025 Functional status Patient Activi ty Ambulates;Up ad nancy [facility] Work Phone: 01-27-2025 Functional status Activity Abili ty Independent [facility] Work Phone: 01-27-2025 Functional status None [facility] Work Phone: 03-03-2023 Functional status Ambulates [facility] Work Phone: NEGATED: Highlighted row Functional performance Functional status health issues are not documented Disease [facility] Work Phone: Mental Status Date Assessment Result Facility 01-28-2025 Cognitive function Voice/Name [facility] Work Phone: 03-03-2023 Cognitive function Voice/Name [facility] Work Phone: NEGATED: Highlighted row Cognitive function [Interpretation] Cognitive status health issues are not documented Disease [facility] Work Phone: Clinical Notes 07-23-2022 to 04-25-2025 Gurpreet Smart PA-C - 04/25/2025 2:30 PM EDT Note Date & Type Note Facility 04-25-2025 History of Presen t illness Narrative Kamla Hedrick is a 54 y.o. year old female patient with Advice Only (HAE) and Hearing Loss (Bilateral ears) Patient presents to the office today for assessment of ears and hearing. The patient reports a history of hearing loss first diagnosed approximately 9 years ago. She denies any significant or sudden changes in hearing but is here for updated audiogram and to reestablish with ENT office. She is seeking new hearing aids. Last audiogram that the patient had was 3 years ago demonstrating a mild to severe sloping loss. She is otherwise well and denies other ENT related concerns at this time. Review of Systems All other systems reviewed and are negative. Physical Exam: General appearance: No acute distress. Normal facies. Symmetric facial movement. No gross lesions of the face are noted. The external ear structures appear normal. The ear canals patent and the tympanic membranes are intact without evidence of air-fluid levels, retraction, or congenital defects. Anterior rhinoscopy notes essentially a midline nasal septum. Examination is noted for normal healthy mucosal membranes without any evidence of lesions, polyps, or exudate. The tongue is normally mobile. There are no lesions on the gingiva, buccal, or oral mucosa. There are no oral cavity masses. The neck is negative for mass lymphadenopathy. The trachea and parotid are clear. The thyroid bed is grossly unremarkable. The salivary gland structures are grossly unremarkable. Audiometric evaluation completed today demonstrating a mild to severe sloping sensorineural hearing loss with 88% word discrimination bilaterally normal tympanometry and absent reflexes which is stable compared to 2021. Assessment/Plan 1. Bilateral sensorineural hearing loss Patient seen in the office today for assessment of her ears and hearing. Patient with history of hearing loss with audiogram completed today. Audiometric evaluation demonstrates bilateral sensorineural hearing loss with a mild to severe sloping loss with good word discrimination. Patient cleared for hearing aids. I recommend follow-up in 1 year. documented in this encounter [facility] Work Phone: 01-28-2025 Hospital Discharg e instructions Additional Instructions Follow-up with outpatient detox services to remain off opiates Date of Discharge: 01/28/25 [facility] Work Phone: 01-28-2025 Discharge summary Note Date/Time January 28, 2025 11:17am [facility] Medical Records Department [address] [place] [address] Instructions for Home/Discharge Instructions 01/28/25 1109 MR#: [id number] Acct: [id number] Name: RYLEYOctober Rep #:[id number] : 1970 54 From: Alla Nguyen DO PCP: Dr. Roseline Thakkar MD Stat us:ADM IN Discharge Instructions DC O2, CPAP, BIPAP needs Home O2 Discharge instructions: No Dressing / Incision Discharge Activity: Return to Normal Activity Weight Bearing Status: Full weight bearing Follow Up Care Test Results: Test results from this visit will be discussed in further detail at your follow-up appointment, if applicable. Discharge Plan Admission Admit Date/Time: 01/25/25 22:03 Primary Reason for Your Visit: opiate detox Attending Provider: Alla Nguyen Primary Care Provider: Roseline Thakkar Providers: Yasmani Yanes Instructions Additional Instructions / Restrictions: Follow-up with outpatient detox services to remain off opiates Discharge Orders/Prescriptions Prescriptions: New quetiapine [Seroquel] 50 mg tablet 50 mg PO DAILY Qty: 30 0RF Continued citalopram 40 MG tablet 60 mg PO DAILY topiramate 25 MG tablet 50 mg PO [...] TAKE 1 TABLET BY MOUTH EVERY NIGHT Referrals / Follow Up: Roseline Thakkar MD [Primary Care Provider] - Within 2 Weeks Disposition Disposition (needs filled in before D/C Order can be placed): Home, Self Care 01/28/25 1117<Electronically signed by Alla Nguyne DO>Alla Nguyen DO CC: Dr. Yasmani Yanes DO; Dr. Roseline Thakkar MD ~ Signed [facility] Work Phone: 1(315) 244-402207-13-2025 Discharge summary [facility] Medical Records Department [address] [place] [address] Instructions for Home/Discharge Instructions 01/28/25 1109 MR#: [id number] Acct: [id number] Name: RYLEYOctober Rep #:[id number] : 1970 54 From: Alla Nguyen DO PCP: Dr. Roseline Thakkar MD Stat us:ADM IN Discharge Instructions DC O2, CPAP, BIPAP needs Home O2 Discharge instructions: No Dressing / Incision Discharge Activity: Return to Normal Activity Weight Bearing Status: Full weight bearing Follow Up Care Test Results: Test results from this visit will be discussed in further detail at your follow- up appointment, if applicable. Discharge Plan Admission Admit Date/Time: 01/25/25 22:03 Primary Reason for Your Visit: opiate detox Attending Provider: Alla Nguyen Primary Care Provider: Roseline Thakkar Consulting Providers: Yasmani Yanes Instructions Additional Instructions / Restrictions: Follow-up with outpatient detox services to remain off opiates Discharge Orders/Prescriptions Prescriptions: New quetiapine [Seroquel] 50 mg tablet 50 mg PO DAILY Qty: 30 0RF Continued citalopram 40 MG tablet 60 mg PO DAILY topiramate 25 MG tablet 50 mg PO [...] TAKE 1 TABLET BY MOUTH EVERY NIGHT Referrals / Follow Up: Roseline Thakkar MD [Primary Care Provider] - Within 2 Weeks Disposition Disposition (needs filled in before D/C Order can be placed): Home, Self Care 01/28/25 1117Alla Nguyen DO CC: Dr. Yasmani Yanes DO; Dr. Roseline Thakkar MD ~ [facility]07-13-2025 [facility] Medical Records Department [address] [place] [address] Discharge Summary 01/28/251116 MR#: [id number] Acct: [id number] Name: KAMLA HEDRICK Rep #: [id number] : 1970 54 From: Alla Nguyen DO PCP: Dr. Roseline Thakkar MD Status:DIS IN [place] [facility] [place] Providers Date of Admission: 01/25/25 Date of Discharge: 01/28/25 Primary Care Physician: Dr. Roseline Thakkar MD Reason For Visit: OPIATE DETOX Diagnosis Discharge Diagnosis (1) Opiate withdrawal: Status: Resolved Code(s): F11.93 - Opioid use, unspecified with withdrawal (2) Opiate dependence: Status: Acute Code(s): F11.20 - Opioid dependence, uncomplicated Plan 1. Opiate withdrawal-patient is moderately symptomatic at this time, she will be seen by addiction aids social worker, she is now getting Subutex #2 polysubstance abuse-complicates care, management, recovery, and prognosis #3 bipolar disorder-patient will remain on her present medication Total clinical time spent by myself addressing the patient's medical issues, reviewing all of her data, and collaborating patient's care team: 25 minutes Medications at Discharge Home Medications citalopram 40 mg tablet 60 mg PO DAILY ANXIETY/DEPRESSION 03/05/19 ferrous sulfate 325 mg (65 mg iron) tablet 325 mg PO BID ANEMIA 03/11/19 topiramate 25 mg tablet 50 mg PO BID PRN PRN Headache 03/11/19 famotidine 40 mg tablet 40 mg PO QHS ACID REFLUX 03/01/23 montelukast 10 mg tablet 10 mg PO QHS ALLERGIES 03/01/23 quetiapine 50 mg tablet (Seroquel) 50 mg PO DAILY #30 tabs 01/28/25 Hospital Course Operations None Procedures None Summary of Care Provided Minutes Spent on Discharge: 31 Hospital Course: This 54-year-old black female was seen in the emergency room at [facility] requesting services for opiate detox. Patient admitted to snorting fentanyl on a daily basis. Patient's tox screen was positive for opiates, fentanyl, and cocaine. Patient was admitted to [place] [address], orders were entered using the opiate detox order set, patient was seen by addiction aids social worker and agreed to follow-up in an outpatient program after discharge from the hospital. Patient had minimal withdrawal symptoms during her hospitalization. On 01/28/2025, patient was seen and examined: On examination she appeared in good health and spirits, she does not appear to be in any distress. Vital signs as documented. Skin warm and dry and without overt rashes. Neck without JVD, thyroid appears normal, trachea is midline, neck is supple. Lungs clear, normal air movement was noted. Heart exam notable for regular rhythm, normal sounds and absence of murmurs, rubs or gallops. Abdomen unremarkable and without evidence of organomegaly, masses, or abdominal aortic enlargement, bowel sounds are present in all 4 quadrants, no abdominal tenderness was noted. Extremities nonedematous, no cyanosis was noted, no clubbing was noted. Neuro: Cranial nerves II through XII are grossly intact, no focal motor deficits were noted, sensation to light touch and pinprick is intact, motor exam 5/5 throughout. Psych: Patient is alert and oriented x3, she does not appear anxious or depressed, she does not appear agitated. Patient was discharged in stable condition on 01/28/2025. Weight / BMI Weight Weight: 72.5 kg Body Mass Index (BMI) 25.7 ABG / Lab / Microbiology Data 01/25/25 20:26 01/25/25 20:26 D/C Instructions Weight Bearing Status: Full weight bearing DC O2, CPAP, BIPAP Needs Home O2 Discharge instructions: No Meaningful Use Info Meaningful Use Meaningful Use Diagnoses (Choose all that apply): None applicable Discharge Plan Admission Admit Date/Time: 01/25/25 22:03 Primary Reason for Your Visit: opiate detox Attending Provider: Alla Nguyen Primary Care Provider: Roseline Thakkar Consulting Providers: Yasmani Yanes Instructions Additional Instructions / Restrictions: Follow-up with outpatient detox services to remain off opiates Discharge Orders/Prescriptions Prescriptions: New quetiapine [Seroquel] 50 mg tablet 50 mg PO DAILY Qty: 30 0RF Continued citalopram 40 MG tablet 60 mg PO DAILY topiramate 25 MG tablet 50 mg PO [...] TAKE 1 TABLET BY MOUTH EVERY NIGHT Referrals / Follow Up: Roseline Thakkar MD [Primary Care Provider] - Within 2 Weeks Disposition Disposition (needs charlee (more content not included)...[facility] 01-27-2025 Progress note Author Alla Nguyen [facility] Note Date/Time January 27, 2025 3:51 pm [facility] Medical Records Department [address] [place] [address] Progress Note - Hospitalist 01/27/25 1547 MR#: [id number] Acct: [id number] Name: RYLEYOctober Rep #:[id number] : 1970 54 From: Alla Nguyen DO PCP: Dr. Roseline Thakkar MD Stat us:ADM IN [facility] Reason for Visit Reason for Visit: Diagnoses Opioid abuse, uncomplicated (01/25/25) Opioid dependence, uncomplicated (01/25/25) Subjective Subjective Patient was seen and examined today, she complains of anxiety, I increase the patient's Vistaril today but she still has a problem with feeling very nervous. I have elected to give her a dose of Seroquel to see if this would help. Patient is now on Subutex Objective Data Objective Data Vital Signs: Vital Signs Temp Pulse Resp BP Pulse Ox O2 Del Method 98.0 F 70 18 134/80 H 99 Room Air 01/27/25 15:03 01/27/25 15:03 01/27/25 15:03 01/27/25 15:03 01/27/25 15:03 01/27/25 15:03 Oxygen Delivery Method Room Air Weight: 72.5 kg Body Mass Index (BMI) 25.7 Intake & Output: Intake and Output for Last 24 Hours 01/25/25 01/26/25 01/27/25 23:59 23:59 23:59 Intake Total 550 / 772 872 / 872 Balance 550 / 772 872 / 872 Lab / Micro Data 01/25/25 20:26 01/25/25 20:26 Physical Exam Narrative alert, oriented x3, patient appears moderately anxious, average body habitus andhealthy appearing General Appearance: cooperative, well kempt and well developed Orientation / Consciousness: awake, oriented to person, oriented to place and oriented to time HEENT normocephalic, head/scalp atraumatic and moist oral mucous membranes Eyes PERRL, EOMs intact bilaterally and conjunctivae normal Neck supple, no JVD, thyroid normal and no carotid bruits General: trachea midline Resp normal respiratory effort, no retractions, no use of accessory muscles and clearto auscultation bilaterally Auscultation: Negative for rales, rhonchi or wheezes Cardio regular rate, regular rhythm, S1 normal heart sound, S2 normal heart sound, no murmurs, no rub and no gallops GI normal to inspection, nondistended, normoactive bowel sounds, soft to palpation,non-tender and non-distended Extremity no clubbing, cyanosis or edema Skin no rashes or lesions noted General Skin Exam: no breakdown Neuro oriented x3, CN's II-XII intact bilaterally, moves all extremities, no focal motor deficits and no sensory deficits noted Sensorium / Orientation: awake and alert Speech: speech normal Psych Patient appears moderately anxious Assessment & Plan Assessment/Plan (1) Opiate withdrawal: (2) Opiate dependence: PLAN: Plan 1. Opiate withdrawal-patient is moderately symptomatic at this time, she will be seen by addiction aids social worker, she is now getting Subutex #2 polysubstance abuse-complicates care, management, recovery, and prognosis #3 bipolar disorder-patient will remain on her present medication Total clinical time spent by myself addressing the patient's medical issues, reviewing all of her data, and collaborating patient's care team: 25 minutes Charges/Coding Visit Charges Inpatient E&M: 74871 Subs Hosp L1 01/27/25 1556 <Electronically signed by Alla Nguyen DO> Cosigner Signature (if applicable): CC: ~ Signed [facility] Work Phone: 1(511) 131-670807-12-2025 Progress note [facility] Medical Records Department [address] [place] [address] Progress Note - Hospitalist 01/27/25 1547 MR#: [id number] Acct: [id number] Name: RYLEYOctober Rep #:[id number] : 1970 54 From: Alla Nguyen DO PCP: Dr. Roseline Thakkar MD Stat us:ADM IN Location: [place] [id number] Reason for Visit Reason for Visit: Diagnoses Opioid abuse, uncomplicated (01/25/25) Opioid dependence, uncomplicated (01/25/25) Subjective Subjective Patient was seen and examined today, she complains of anxiety, I increase the patient's Vistaril today but she still has a problem with feeling very nervous. I have elected to give her a dose of Seroquel to see if this would help. Patient is now on Subutex Objective Data Objective Data Vital Signs: Vital Signs Temp Pulse Resp BP Pulse Ox O2 Del Method 98.0 F 70 18 134/80 H 99 Room Air 01/27/25 15:03 01/27/25 15:03 01/27/25 15:03 01/27/25 15:03 01/27/25 15:03 01/27/25 15:03 Oxygen Delivery Method Room Air Weight: 72.5 kg Body Mass Index (BMI) 25.7 Intake & Output: Intake and Output for Last 24 Hours 01/25/25 01/26/25 01/27/25 23:59 23:59 23:59 Intake Total 550 / 772 872 / 872 Balance 550 / 772 872 / 872 Lab / Micro Data 01/25/25 20:26 01/25/25 20:26 Physical Exam Narrative alert, oriented x3, patient appears moderately anxious, average body habitus andhealthy appearing General Appearance: cooperative, well kempt and well developed Orientation / Consciousness: awake, oriented to person, oriented to place and oriented to time HEENT normocephalic, head/scalp atraumatic and moist oral mucous membranes Eyes PERRL, EOMs intact bilaterally and conjunctivae normal Neck supple, no JVD, thyroid normal and no carotid bruits General: trachea midline Resp normal respiratory effort, no retractions, no use of accessory muscles and clearto auscultation bilaterally Auscultation: Negative for rales, rhonchi or wheezes Cardio regular rate, regular rhythm, S1 normal heart sound, S2 normal heart sound, no murmurs, no rub and no gallops GI normal to inspection, nondistended, normoactive bowel sounds, soft to palpation,non-tender and non-distended Extremity no clubbing, cyanosis or edema Skin no rashes or lesions noted General Skin Exam: no breakdown Neuro oriented x3, CN's II-XII intact bilaterally, moves all extremities, no focal motor deficits and no sensory deficits noted Sensorium / Orientation: awake and alert Speech: speech normal Psych Patient appears moderately anxious Assessment & Plan Assessment/Plan (1) Opiate withdrawal: (2) Opiate dependence: PLAN: Plan 1. Opiate withdrawal-patient is moderately symptomatic at this time, she will be seen by addiction aids social worker, she is now getting Subutex #2 polysubstance abuse-complicates care, management, recovery, and prognosis #3 bipolar disorder-patient will remain on her present medication Total clinical time spent by myself addressing the patient's medical issues, reviewing all of her data, and collaborating patient's care team: 25 minutes Charges/Coding Visit Charges Inpatient E&M: 55392 Subs Hosp L1 01/27/25 4216 Cosigner Signature (if applicable): CC: ~ Signed [facility]07-11-2025 Progress note Author Alla Nguyen [facility] Note Date/Time January 26, 2025 2:04 pm [facility] Medical Records Department [address] [place] [address] Progress Note - Hospitalist 01/26/25 1400 MR#: [id number] Acct: [id number] Name: RYLEYOctober Rep #:[id number] : 1970 54 From: Alla Nguyen DO PCP: Dr. Roseline Thakkar MD Stat us:ADM IN Location: [facility] [id number] Reason for Visit Reason for Visit: Diagnoses Opioid abuse, uncomplicated (01/25/25) Subjective Subjective Patient was seen and examined today, she has a little bit of nasal congestion but otherwise she has no significant symptoms of withdrawal. Patient states shewants to do an outpatient detox program. Objective Data Objective Data Vital Signs: Vital Signs Temp Pulse Resp BP Pulse Ox O2 Del Method 98.6 F 59 L 15 126/86 H 98 Room Air 01/26/25 09:00 01/26/25 09:00 01/26/25 09:00 01/26/25 09:00 01/26/25 09:00 01/26/25 09:38 Oxygen Delivery Method Room Air Weight: 72.5 kg Body Mass Index (BMI) 25.7 Intake & Output: Intake and Output for Last 24 Hours 01/24/25 01/25/25 01/26/25 23:59 23:59 23:59 Intake Total 300 / 300 Balance 300 / 300 Lab / Micro Data 01/25/25 20:26 01/25/25 20:26 Labs: Laboratory Results - last 24 hr 01/25/25 20:20: Urine Opiates Screen PRESUMPTIVE POSITIVE, U Buprenorphine Qual NEGATIVE, Ur Oxycodone Screen NEGATIVE, Urine Methadone Screen NEGATIVE, Urine Fentanyl Screen PRESUMPTIVE POSITIVE, Ur Barbiturates Screen NEGATIVE, Ur Phencyclidine Scrn NEGATIVE, Ur Amphetamines Screen NEGATIVE, U Benzodiazepines Scrn NEGATIVE, Urine Cocaine Screen PRESUMPTIVE POSITIVE, U Cannabinoids Screen NEGATIVE 01/25/25 20:26: WBC 5.8, RBC 3.85 L, Hgb 11.2 L, Hct 33.8 L, MCV 87.8, MCH 29.1,MCHC 33.1, RDW Std Deviation 40.5, RDW Coeff of Craoline 12.6, Plt Count 306, MPV 9.4, Immature Gran % (Auto) 0.300, Neut % (Auto) 54.6, Lymph % (Auto) 31.9, Roberts% (Auto) 5.3, Eos % (Auto) 7.2 H, Baso % (Auto) 0.7, Absolute Neuts (auto) 3.2, Absolute Lymphs (auto) 1.86, Nucleated RBC % 0, Sodium 142, Potassium 4.0, Chloride 109 H, Carbon Dioxide 21.8, Anion Gap 11, BUN 13, Creatinine 0.88, EstimCreat Clear Calc 76.00, Est GFR (MDRD) Non-Af 79, BUN/Creatinine Ratio 15.0, Glucose 143 H, Hemoglobin A1c 5.6, Calcium 9.0, Total Bilirubin 0.35, AST 21, ALT19, Alkaline Phosphatase 83, Total Protein 6.9, Albumin 4.0, Globulin 3.0, Albumin/Globulin Ratio 1.3, Serum , Qual NEGATIVE, Ethyl Alcohol < 10.1 Physical Exam Const alert, oriented x3, no apparent distress, average body habitus and healthy appearing General Appearance: cooperative, well kempt and well developed Orientation / Consciousness: awake, oriented to person, oriented to place and oriented to time HEENT normocephalic, head/scalp atraumatic and moist oral mucous membranes Eyes PERRL, EOMs intact bilaterally and conjunctivae normal Neck supple, no JVD, thyroid normal and no carotid bruits General: trachea midline Resp normal respiratory effort, no retractions, no use of accessory muscles and clearto auscultation bilaterally Auscultation: Negative for rales, rhonchi or wheezes Cardio regular rate, regular rhythm, S1 normal heart sound, S2 normal heart sound, no murmurs, no rub and no gallops GI normal to inspection, nondistended, normoactive bowel sounds, soft to palpation,non-tender and non-distended Extremity no clubbing, cyanosis or edema Skin no rashes or lesions noted General Skin Exam: no breakdown Neuro oriented x3, CN's II-XII intact bilaterally, moves all extremities, no focal motor deficits and no sensory deficits noted Sensorium / Orientation: awake and alert Speech: speech normal Psych affect normal Assessment & Plan Assessment/Plan (1) Opiate dependence: PLAN: Plan 1. Opiate withdrawal-patient is minimally symptomatic at this time, she will beseen by addiction aids social worker, Subutex will be started when she is symptomatic. #2 polysubstance abuse-complicates care, management, recovery, and prognosis #3 bipolar disorder-patient will remain on her present medication Total clinical time spent by myself addressing the patient's medical issues, reviewing all of her data, and collaborating patient's care team: 25 minutes Charges/Coding Visit Charges Inpatient E&M: 73841 Subs Hosp L1 01/26/25 1404 <Electronically signed by Alla Nguyen DO> Cosigner Signature (if applicable): CC: ~ Signed [facility] Work Phone: 1(482) 900-572807-11-2025 Progress note [facility] Medical Records Department [address] [place] [address] Progress Note - Hospitalist 01/26/25 1400 MR#: [id number] Acct: [id number] Name: RYLEYOctober Rep #:[id number] : 1970 54 From: Alla Nguyen DO PCP: Dr. Roseline Thakkar MD Stat us:ADM IN Location: [place] [id number] Reason for Visit Reason for Visit: Diagnoses Opioid abuse, uncomplicated (01/25/25) Subjective Subjective Patient was seen and examined today, she has a little bit of nasal congestion but otherwise she hasno significant symptoms of withdrawal. Patient states shewants to do an outpatient detox program. Objective Data Objective Data Vital Signs: Vital Signs Temp Pulse Resp BP Pulse Ox O2 Del Method 98.6 F 59 L 15 126/86 H 98 Room Air 01/26/25 09:00 01/26/25 09:00 01/26/25 09:00 01/26/25 09:00 01/26/25 09:00 01/26/25 09:38 Oxygen Delivery Method Room Air Weight: 72.5 kg Body Mass Index (BMI) 25.7 Intake & Output: Intake and Output for Last 24 Hours 01/24/25 01/25/25 01/26/25 23:59 23:59 23:59 Intake Total 300 / 300 Balance 300 / 300 Lab / Micro Data 01/25/25 20:26 01/25/25 20:26 Labs: Laboratory Results - last 24 hr 01/25/25 20:20: Urine Opiates Screen PRESUMPTIVE POSITIVE, U Buprenorphine Qual NEGATIVE, Ur Oxycodone Screen NEGATIVE, Urine Methadone Screen NEGATIVE, Urine Fentanyl Screen PRESUMPTIVE POSITIVE, UrBarbiturates Screen NEGATIVE, Ur Phencyclidine Scrn NEGATIVE, Ur Amphetamines Screen NEGATIVE, U Benzodiazepines Scrn NEGATIVE, Urine Cocaine Screen PRESUMPTIVE POSITIVE, U Cannabinoids Screen NEGATIVE 01/25/25 20:26: WBC 5.8, RBC 3.85 L, Hgb 11.2 L, Hct 33.8 L, MCV 87.8, MCH 29.1,MCHC 33.1, RDW Std Deviation 40.5, RDW Coeff of Caroline 12.6, Plt Count 306, MPV 9.4, Immature Gran % (Auto) 0.300, Neut % (Auto) 54.6, Lymph % (Auto) 31.9, Roberts% (Auto) 5.3, Eos % (Auto) 7.2 H, Baso % (Auto) 0.7, Absolute Neuts (auto) 3.2, Absolute Lymphs (auto) 1.86, Nucleated RBC % 0, Sodium 142, Potassium 4.0, Chloride 109 H, Carbon Dioxide 21.8, Anion Gap 11, BUN 13, Creatinine 0.88, EstimCreat Clear Calc 76.00, Est GFR (MDRD) Non-Af 79, BUN/Creatinine Ratio 15.0, Glucose 143 H, Hemoglobin A1c 5.6, Calcium 9.0, Total Bilirubin 0.35, AST 21, ALT19, Alkaline Phosphatase 83, Total Protein 6.9, Albumin 4.0, Globulin 3.0, Albumin/Globulin Ratio 1.3, Serum , Qual NEGATIVE, Ethyl Alcohol < 10.1 Physical Exam Const alert, oriented x3, no apparent distress, average body habitus and healthy appearing General Appearance: cooperative, well kempt and well developed Orientation / Consciousness: awake, oriented to person, oriented to place and oriented to time HEENT normocephalic, head/scalp atraumatic and moist oral mucous membranes Eyes PERRL, EOMs intact bilaterally and conjunctivae normal Neck supple, no JVD, thyroid normal and no carotid bruits General: trachea midline Resp normal respiratory effort, no retractions, no use of accessory muscles and clearto auscultation bilaterally Auscultation: Negative for rales, rhonchi or wheezes Cardio regular rate, regular rhythm, S1 normal heart sound, S2 normal heart sound, no murmurs, no rub and no gallops GI normal to inspection, nondistended, normoactive bowel sounds, soft to palpation,non-tender and non-distended Extremity no clubbing, cyanosis or edema Skin no rashes or lesions noted General Skin Exam: no breakdown Neuro oriented x3, CN's II-XII intact bilaterally, moves all extremities, no focal motor deficits and no sensory deficits noted Sensorium / Orientation: awake and alert Speech: speech normal Psych affect normal Assessment & Plan Assessment/Plan (1) Opiate dependence: PLAN: Plan 1. Opiate withdrawal-patient is minimally symptomatic at this time, she will beseen by addiction aids social worker, Subutex will be started when she is symptomatic. #2 polysubstance abuse-complicates care, management, recovery, and prognosis #3 bipolar disorder-patient will remain on her present medication Total clinical time spent by myself addressing the patient's medical issues, reviewing all of her data, and collaborating patient's care team: 25 minutes Charges/Coding Visit Charges Inpatient E&M: 21175 Subs Hosp L1 01/26/25 1404 Cosigner Signature (if applicable): CC: ~ Signed [facility]07-11-2025 History and physical note Author Yasmani Yanes [facility] Note Date/Time January 25, 2025 10:5 8pm [facility] Medical Records Department [address] [place] [address] H&P Exam - Hospitalist 01/25/253 MR#: [id number] Acct: [id number] Name: KAMLA HEDRICK Rep #:[id number] : 1970 54 From: Yasmani venegas DO PCP: Dr. Roseline Thakkar MD Stat us:ADM IN Location: [facility] JO780-1 HPI - General General Date of Admission: 01/25/25 Date of Service: 01/25/25 Chief Complaint: Opiate detox HPI Narrative KAMLA HEDRICK, is a 54 F who presented to [facility] ED on 01/25/2025 desiring opiate detox. Patient last went through opiate detox here [id number]. She was clean until the beginning of this year when she began using her family member's Percocet. She currently vapes tobacco as well. Denies other drug use and denies alcohol use. In the ED she was noted to be actively high onopiates. Sinus bradycardia to the 50s and borderline hypotension to the low 100s systolic, otherwise satting in the high 90s on room air at rest. CBC and CMP were benign. Urine tox screen presented positive for opiates, fentanyl and cocaine. Alcohol level negative. Given desire for opiate detox, hospitalist was contacted for admission. I saw the patient at bedside in the ED. Patient remained actively high, was lethargic and somewhat somnolent. She did make appropriate eye contact but her speech was slowed and she was not answering all questions appropriately. She denies any acute pain or discomfort. Will be admitted for further management. [facility] Medical History Hepatitis C infection Noncompliance with medication regimen History of bipolar disorder Polysubstance dependence IV drug abuse Bipolar disorder Iron deficiency anemia Chronic anemia Overweight Allergic rhinitis Polysubstance abuse Anxiety and depression GERD (gastroesophageal reflux disease) Home Medications ?Medication ?Instructions ?Recorded ?Last Taken ?Type citalopram 40 mg tablet 60 mg PO DAILY ANXIETY/DEPRE SSION 03/05/19 03/11/19 History hydroxyzine pamoate 50 mg capsule 50 mg PO DAILY ANXIE TY 03/05/19 03/11/19 History ranitidine HCl 150 mg tablet 150 mg PO DAILY PRN MIGRA INE 03/05/19 03/11/19 History ferrous sulfate 325 mg (65 mg 325 mg PO BID ANEMIA 03/11/19 History iron) tablet topiramate 25 mg tablet 50 mg PO BID PRN PRN Headach e 03/11/19 Unknown History famotidine 40 mg tablet 40 mg PO QHS ACID REFLUX Unknown History montelukast 10 mg tablet 10 mg PO QHS ALLERGIES 03/01 Unknown History Allergy/AdvReac Type Severity Reaction Status Date / Time codeine Allergy Itching Verified 01/25/25 19:43 doxycycline Allergy Itching Verified 01/25/25 19:43 latex Allergy Rash Verified 01/25/25 19:43 Penicillins (cillins) Allergy Swelling Verified 01/25/25 19:43 sulfamethoxazole (From Allergy Rash Verified 01/25/25 19:43 Bactrim) trimethoprim (From Bactrim) Allergy Rash Verified 01/25/25 19:43 naproxen AdvReac Upset Verified 01/25/25 19:43 Stomach NSAIDS (Non-Steroidal AdvReac Upset Verified 01/25/25 19:43 Anti-Inflamma Stomach Family History Mother Diabetes Hypertension Rheumatoid arthritis Father Diabetes Cancer Hypertension Surgical History History of tubal ligation Hx of cholecystectomy Social History household members: other details: Her 18 year old daughter lives with her. Smoking Status: Current every day smoker tobacco type: e-cigarettes alcohol intake: never substance use type: crack/cocaine, heroin, opiates and IV drugs ROS Constitutional Constitutional: Denies chills, fatigue, fever(s) or weakness Cardiovascular Cardiovascular: Denies chest pain Respiratory/Chest Respiratory/Chest: Denies shortness of breath at rest Gastrointestinal Gastrointestinal: Denies abdominal pain Vital Signs Vital Signs Vital Signs: 01/25/25 19:43 01/25/25 20:43 01/25/25 21:00 Temperature 97.2 F L Temperature Source Temporal Pulse Rate 57 L 52 L 50 L Respiratory Rate 16 12 12 Blood Pressure 110/76 101/72 101/72 Blood Pressure Mean 87 81 81 Pulse Ox 99 97 97 Oxygen Delivery Method Room Air Room Air Room Air 01/25/25 22:00 01/25/25 22:02 Temperature 97.6 F L Temperature Source Pulse Rate 12 L 50 L Respiratory Rate 50 H 12 Blood Pressure 99/68 99/68 Blood Pressure Mean 78 78 Pulse Ox 100 100 Oxygen Delivery Method Room Air Weight Weight: 72 kg Body Mass Index (BMI) 25.6 Physical Exam Const alert, no apparent distress and average body habitus Constitutional Narrative: Middle-aged female, actively high on opiates, lethargic and somewhat somnolent appearing but was alert and making appropriate eye contact, sitting back comfortably in bed, in no acute distress. General Appearance: cooperative and comfortable Orientation / Consciousness: lethargic HEENT normocephalic, head/scalp atraumatic, hearing grossly normal bilaterally, nasal mucous membranes and turbinates normal and moist oral mucous membranes Eyes PERRL, EOMs intact bilaterally and conjunctivae normal Neck full ROM Chest inspection of chest normal Resp normal respiratory effort, normal air movement, no use of accessory muscles and clear to auscultation bilaterally Cardio no murmurs and peripheral pulses 2+ throughout Cardio Narrative: Bradycardic, regular rhythm. GI normal to inspection, nondistended, normoactive bowel sounds, soft to palpation,non-tender and non-distended Back/Spine normal ROM Extremity normal to inspection, full ROM and no pedal edema Skin no rashes or lesions noted Results Lab / Micro Data 01/25/25 20:26 01/25/25 20:26 Labs: Laboratory Results - last 24 hr 01/25/25 20:20: Urine Opiates Screen PRESUMPTIVE POSITIVE, U Buprenorphine Qual NEGATIVE, Ur Oxycodone Screen NEGATIVE, Urine Methadone Screen NEGATIVE, Urine Fentanyl Screen PRESUMPTIVE POSITIVE, Ur Barbiturates Screen NEGATIVE, Ur Phencyclidine Scrn NEGATIVE, Ur Amphetamines Screen NEGATIVE, U Benzodiazepines Scrn NEGATIVE, Urine Cocaine Screen PRESUMPTIVE POSITIVE, U Cannabinoids Screen NEGATIVE 01/25/25 20:26: WBC 5.8, RBC 3.85 L, Hgb 11.2 L, Hct 33.8 L, MCV 87.8, MCH 29.1,MCHC 33.1, RDW Std Deviation 40.5, RDW Coeff of Caroline 12.6, Plt Count 306, MPV 9.4, Immature Gran % (Auto) 0.300, Neut % (Auto) 54.6, Lymph % (Auto) 31.9, Roberts% (Auto) 5.3, Eos % (Auto) 7.2 H, Baso % (Auto) 0.7, Absolute Neuts (auto) 3.2, Absolute Lymphs (auto) 1.86, Nucleated RBC % 0, Sodium 142, Potassium 4.0, Chloride 109 H, Carbon Dioxide 21.8, Anion Gap 11, BUN 13, Creatinine 0.88, EstimCreat Clear Calc 76.00, Est GFR (MDRD) Non-Af 79, BUN/Creatinine Ratio 15.0, Glucose 143 H, Calcium 9.0, Total Bilirubin 0.35, AST 21, ALT 19, Alkaline Phosphatase 83, Total Protein 6.9, Albumin 4.0, Globulin 3.0, Albumin/Globulin Ratio 1.3, Serum , Qual NEGATIVE, Ethyl Alcohol < 10.1 Assessment & Plan Assessment/Plan (1) Opiate abuse, continuous: (2) Desire for detoxification: PLAN: Plan Patient is a 54-year-old female who presented [facility] ED on 01/25/2025 with opiate abuse and desire for detox. 1. Opiate abuse and desire for detox, polysubstance abuse ? Admit under inpatient status to [facility]. Case management consulted. Urine tox screen positive for opiates, fentanyl and cocaine. Patient actively high inthe ED. She reports using family member's Percocet but notably is a previous heroin and cocaine addict. Will treat with buprenorphine taper and other as needed medications per opiate withdrawal order set. Notably will hold buprenorphine until patient begins to have withdrawal symptoms. 2. Sinus bradycardia ? Patient with sinus bradycardia to the low 50s in the ED. Borderline hypotension to the low 100 systolic. Suspect due to active opiate intoxication. Continue cardiac monitoring. Chronic medical conditions: ? Mild chronic iron deficiency anemia: Hemoglobin 11.2 on admit, at baseline. Continue home iron supplement. ? GERD: Continue home famotidine. ? Anxiety/depression/bipolar disorder: Continue home citalopram. ? Allergic rhinitis: Continue home montelukast. ? History of hepatitis C infection s/p posttreatment DVT prophylaxis: Lovenox CODE STATUS: Full code, unverified Expected disposition: TBD Total clinical time spent by myself addressing the patient's medical issues, reviewing all the data, and collaborating with patient's care team: 55 minutes. Charges/Coding Visit Charges Inpatient E&M: 11177 Init Hosp L2 01/25/25 8820 <Electronically signed by Yasmani Yanes DO> Cosigner Signature (if applicable): CC: Dr. Yasmani Yanes DO; Dr. Roseline Thakkar MD~ Signed [facility] Work Phone: 1(521) 975-283207-11-2025 Discharge summary Author Abdoul Morales [facility] Note Date/Time January 25, 2025 10:1 2pm [facility] Medical Records Department [address] [place] [address] Emergency Department Summary 01/25/25 MR#: [id number] Acct: [id number] Name: ARNOLD Rep #:[id number] : 1970 54 From: Abdoul Morales MD PCP: Dr. Roseline Thakkar MD Stat us:REG ER Location: ED ADDENDUM by Dr. Abdoul Morales MD on 01/25/25 at [address] Yordan Yanes. Full admit MedSurg for detox 01/25/252211<Electronically signed by Abdoul Morales MD> Cosigner Signature (if applicable): cc: Dr. Roseline Thakkar MD ~* Signed HPI History of Present Illness Chief Complaint: Substance Abuse Detail of Chief Complaint: Opiate addiction Informant: patient Onset/Context/Timing Onset: Month(s) Context: Sudden Onset Timing: Continuous Quality: Takes fatty's . Patient states these are Percocet tablets Current Severity: Moderate Maximum Severity: Moderate Worsened by: States her daughter is using her granddaughters upon Relieved by: Nothing Associated Symptoms Associated Symptoms: Positive for change in mental status and no; Negative for vomiting*, diarrhea*, fever*, rash*, seizure, tremor, palpatations, trauma, sex for drugs*, suicidal ideation or homicidal ideation Narrative Narrative: Patient is a 54-year-old woman. She was in [facility] detox program 2022. She was clean until the beginning of this year. She states her daughter is using her granddaughters upon. She began using again. She currently using fatty's . Patient does vape. She denies any other drug use. She states when she was younger she used marijuana. 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 She denies any other drug use. She denies alcohol use. Prior similar symptoms: Yes Recent Illness/Hospitalization: No [facility] Medical History Hepatitis C infection Noncompliance with medication regimen History of bipolar disorder Polysubstance dependence IV drug abuse Bipolar disorder Iron deficiency anemia Chronic anemia Overweight Allergic rhinitis Polysubstance abuse Anxiety and depression GERD (gastroesophageal reflux disease) Home Medications ?Medication ?Instructions ?Recorded ?Last Taken ?Type citalopram 40 mg tablet 60 mg PO DAILY ANXIETY/DEPRE SSION 03/05/19 03/11/19 History hydroxyzine pamoate 50 mg capsule 50 mg PO DAILY ANXIE TY 03/05/19 03/11/19 History ranitidine HCl 150 mg tablet 150 mg PO DAILY PRN MIGRA INE 03/05/19 03/11/19 History ferrous sulfate 325 mg (65 mg 325 mg PO BID ANEMIA 03/11/19 History iron) tablet topiramate 25 mg tablet 50 mg PO BID PRN PRN Headach e 03/11/19 Unknown History famotidine 40 mg tablet 40 mg PO QHS ACID REFLUX Unknown History montelukast 10 mg tablet 10 mg PO QHS ALLERGIES 03/01 Unknown History Allergy/AdvReac Type Severity Reaction Status Date / Time codeine Allergy Itching Verified 01/25/25 19:43 doxycycline Allergy Itching Verified 01/25/25 19:43 latex Allergy Rash Verified 01/25/25 19:43 Penicillins (cillins) Allergy Swelling Verified 01/25/25 19:43 sulfamethoxazole (From Allergy Rash Verified 01/25/25 19:43 Bactrim) trimethoprim (From Bactrim) Allergy Rash Verified 01/25/25 19:43 naproxen AdvReac Upset Verified 01/25/25 19:43 Stomach NSAIDS (Non-Steroidal AdvReac Upset Verified 01/25/25 19:43 Anti-Inflamma Stomach Family History Mother Diabetes Hypertension Rheumatoid arthritis Father Diabetes Cancer Hypertension Surgical History History of tubal ligation Hx of cholecystectomy Social History household members: other details: Her 18 year old daughter lives with her. Smoking Status: Current every day smoker tobacco type: e-cigarettes alcohol intake: never substance use type: crack/cocaine, heroin, opiates and IV drugs ROS ROS ED Constitutional Constitutional ED: Denies chills, fever(s), subjective, sweats or weight loss Eyes Eyes: Denies blurry vision, change in vision or diplopia ENT ENT ED: Denies ear pain, rhinorrhea or sore throat Cardiovascular Cardiovascular: Denies chest pain or palpitations Respiratory/Chest Respiratory/Chest: Denies cough, dyspnea or dyspnea on exertion Gastrointestinal Gastrointestinal: Denies abdominal pain, diarrhea, nausea or vomiting Genitourinary Genitourinary ED: Denies dysuria or urinary frequency Musculoskeletal Musculoskeletal: Denies arthralgias or myalgias Integumentary Denies rash Neurologic Neurologic: Denies headache(s), paresthesias or weakness Psychiatric Psychiatric: Reports other Details: Patient is giddy. Patient needs to be redirected. ; Denies anxiety or depression Endocrine Endocrinology: Denies cold intolerance or heat intolerance Hematologic/Lymphatic Hematologic/Lymphatic: Denies easy bleeding or easy bruising EXAM Physical Exam Const Vital Signs: 01/25/25 19:43 01/25/25 20:43 01/25/25 21:00 Temperature 97.2 F L Temperature Source Temporal Pulse Rate 57 L 52 L 50 L Respiratory Rate 16 12 12 Blood Pressure 110/76 101/72 101/72 Blood Pressure Mean 87 81 81 Pulse Ox 99 97 97 Oxygen Delivery Method Room Air Room Air Room Air Positive well nourished and well developed General Appearance ED: well developed and NAD; Negative for pallor HEENT Reports TM's clear and moist mucous membranes atraumatic; Negative for tenderness Tympanic Membrane ED: Yes TM's clear Eyes PERRL and EOMs intact bilaterally General Eye ED: Negative for pale conjunctiva or scleral icterus Neck no lymphadenopathy, supple and no JVD Chest Wall inspection of chest normal and palpation of chest normal Resp normal respiratory effort and clear to auscultation bilaterally Cardio regular rate, regular rhythm, S1 normal heart sound, S2 normal heart sound and no murmurs GI soft to palpation, non-tender, non-distended and no masses Back/Spine no CVA tenderness Extremity Extremity Narrative: There is no clubbing or cyanosis. There is no [place] of recent self injury. There is no evidence of cellulitis or abscess. Neuro oriented x3, CN's II-XII intact bilaterally and no sensory deficits noted [place] Coma Scale: document GCS findings Spontaneous Obeys Commands Oriented 15 Sensorium / Orientation: alert Motor Exam: strength 5/5 throughout Psych Psych Narrative: Patient is giddy. She appears inebriated. Skin General Skin Exam: Negative for jaundice or pallor Lesions: no lesions Rashes: no rashes MDM MDM MDM Narrative Medical decision making narrative: Patient reports opiate use. ED addiction medicine protocol was entered. Patient's hospitalization from February [address] Alarcon's discharge summary was noted. Lab Data Attestation: I reviewed the patient's lab results. Lab results narrative: CBC reveals mild anemia. Comprehensive metabolic panel reveals slight elevationin glucose of 143. Serum test is negative. Tox was positive for presumptive opiates, fentanyl and cocaine. Alcohol was nondetected. Labs: Laboratory Results - last 24 hr 01/25/25 01/25/25 20:20 20:26 WBC 5.8 RBC 3.85 L Hgb 11.2 L Hct 33.8 L MCV 87.8 MCH 29.1 MCHC 33.1 RDW Std Deviation 40.5 RDW Coeff of Caroline 12.6 Plt Count 306 MPV 9.4 Immature Gran % (Auto) 0.300 Neut % (Auto) 54.6 Lymph % (Auto) 31.9 Roberts % (Auto) 5.3 Eos % (Auto) 7.2 H Baso % (Auto) 0.7 Absolute Neuts (auto) 3.2 Absolute Lymphs (auto) 1.86 Nucleated RBC % 0 Sodium 142 Potassium 4.0 Chloride 109 H Carbon Dioxide 21.8 Anion Gap 11 BUN 13 Creatinine 0.88 Estim Creat Clear Calc 76.00 Est GFR (MDRD) Non-Af 79 BUN/Creatinine Ratio 15.0 Glucose 143 H Calcium 9.0 Total Bilirubin 0.35 AST 21 ALT 19 Alkaline Phosphatase 83 Total Protein 6.9 Albumin 4.0 Globulin 3.0 Albumin/Globulin Ratio 1.3 Serum , Qual NEGATIVE Urine Opiates Screen PRESUMPTIVE POSITIVE U Buprenorphine Qual NEGATIVE Ur Oxycodone Screen NEGATIVE Urine Methadone Screen NEGATIVE Urine Fentanyl Screen PRESUMPTIVE POSITIVE Ur Barbiturates Screen NEGATIVE Ur Phencyclidine Scrn NEGATIVE Ur Amphetamines Screen NEGATIVE U Benzodiazepines Scrn NEGATIVE Urine Cocaine Screen PRESUMPTIVE POSITIVE U Cannabinoids Screen NEGATIVE Ethyl Alcohol < 10.1 Management Discussion w/another healthcare provider: Hospitalist (Hospitalist was paged to admit for opiate dependence and use.) Discharge Plan Triage Chief Complaint: Substance Abuse ED Provider: Abdoul Morales Dx/Rx/DC Orders Clinical Impression: Opiate dependence, Cocaine abuse, Opiate abuse, continuous, Depression Prescriptions: No Action citalopram 40 MG tablet 60 mg PO [...] TAKE 1 TABLET BY MOUTH EVERY NIGHT Primary Care Provider: Roseline Thakkar Referrals: Roseline Thakkar MD [Primary Care Provider] - Print Language: Salvadorean What to do if you have Problems For any increased pain, shortness of breath, bleeding, nausea or vomiting, chestpain, or any unexpected problems, contact your Primary Care Provider. Call [facility] ([phone]) or report to the closest Emergency Room. Call 911 if necessary. 01/25/252158 <Electronically signed by Abdoul Morales MD> Cosigner Signature (if applicable): CC: Dr. Roseline Thakkar MD ~ Signed [facility] Work Phone: 1(522) 775-649107-11-2025 Evaluation note* Diagnosis Onset Date Resolution Status Admit Date Desire for detoxification acute January 25, 2025 10:03pm Opiate abuse, continuous acute January 25, 2025 10:03pm Opiate dependence acute January 252024 10:03pm Opiate withdrawal resolved January 252024 10:03pm [facility] Work Phone: 1(971) 406-275907-11-2025 Evaluation note* Diagnosis Onset Date Resolution Status Admit Date Opiate withdrawal resolved January 252024 10:03pm Desire for detoxification inactive January 25, 2025 10:03pm Opiate abuse, continuous inactive January 25, 2025 10:03pm Opiate dependence inactive January 252024 10:03pm [facility] Work Phone: 1(263) 975-306607-10-2025 History and physical note [facility] Medical Records Department [address] [place] [address] H&P Exam - Hospitalist 01/25/252202 MR#: [id number] Acct: [id number] Name: RYLEYOCTOBER Michelle Rep #:[id number] : 1970 54 From: Yasmani venegas DO PCP: Dr. Roseline Thakkar MD Stat us:ADM IN Location: MS3 [id number] HPI - General General Date of Admission: 01/25/25 Date of Service: 01/25/25 Chief Complaint: Opiate detox HPI Narrative KAMLA HEDRICK, is a 54 F who presented to [facility] ED on 01/25/2025 desiring opiatedetox. Patient last went through opiate detox here [id number]. She was clean until the beginning of this year when she began using her family member's Percocet. She currently vapes tobacco as well. Denies other drug use and denies alcohol use. In the ED she was noted to be actively high onopiates. Sinus bradycardia to the 50s and borderline hypotension to the low 100s systolic, otherwise satting in the high 90s on room air at rest. CBC and CMP were benign. Urine tox screen presented positive for opiates, fentanyl and cocaine. Alcohol level negative. Given desire for opiate detox, hospitalist was contacted for admission. I saw the patient at bedside in the ED. Patient remained actively high, waslethargic and somewhat somnolent. She did make appropriate eye contact but her speech was slowed and she was not answering all questions appropriately. She denies any acute pain or discomfort. Will be admitted for further management. [facility] Medical History Hepatitis C infection Noncompliance with medication regimen History of bipolar disorder Polysubstance dependence IV drug abuse Bipolar disorder Iron deficiency anemia Chronic anemia Overweight Allergic rhinitis Polysubstance abuse Anxiety and depression GERD (gastroesophageal reflux disease) Home Medications ?Medication ?Instructions ?Recorded ?Last Taken ?Type citalopram 40 mg tablet 60 mg PO DAILY ANXIETY/DEPRE SSION 03/05/19 03/11/19 History hydroxyzine pamoate 50 mg capsule 50 mg PO DAILY ANXIE TY 03/05/19 03/11/19 History ranitidine HCl 150 mg tablet 150 mg PO DAILY PRN MIGRA INE 03/05/19 03/11/19 History ferrous sulfate 325 mg (65 mg 325 mg PO BID ANEMIA 03/11/19 History iron) tablet topiramate 25 mg tablet 50 mg PO BID PRN PRN Headach e 03/11/19 Unknown History famotidine 40 mg tablet 40 mg PO QHS ACID REFLUX Unknown History montelukast 10 mg tablet 10 mg PO QHS ALLERGIES 03/01 Unknown History Allergy/AdvReac Type Severity Reaction Status Date / Time codeine Allergy Itching Verified 01/25/25 19:43 doxycycline Allergy Itching Verified 01/25/25 19:43 latex Allergy Rash Verified 01/25/25 19:43 Penicillins (cillins) Allergy Swelling Verified 01/25/25 19:43 sulfamethoxazole (From Allergy Rash Verified 01/25/25 19:43 Bactrim) trimethoprim (From Bactrim) Allergy Rash Verified 01/25/25 19:43 naproxen AdvReac Upset Verified 01/25/25 19:43 Stomach NSAIDS (Non-Steroidal AdvReac Upset Verified 01/25/25 19:43 Anti-Inflamma Stomach Family History Mother Diabetes Hypertension Rheumatoid arthritis Father Diabetes Cancer Hypertension Surgical History History of tubal ligation Hx of cholecystectomy Social History household members: other details: Her 18 year old daughter lives with her. Smoking Status: Current every day smoker tobacco type: e-cigarettes alcohol intake: never substance use type: crack/cocaine, heroin, opiates and IV drugs ROS Constitutional Constitutional: Denies chills, fatigue, fever(s) or weakness Cardiovascular Cardiovascular: Denies chest pain Respiratory/Chest Respiratory/Chest: Denies shortness of breath at rest Gastrointestinal Gastrointestinal: Denies abdominal pain Vital Signs Vital Signs Vital Signs: 01/25/25 19:43 01/25/25 20:43 01/25/25 21:00 Temperature 97.2 F L Temperature Source Temporal Pulse Rate 57 L 52 L 50 L Respiratory Rate 16 12 12 Blood Pressure 110/76 101/72 101/72 Blood Pressure Mean 87 81 81 Pulse Ox 99 97 97 Oxygen Delivery Method Room Air Room Air Room Air 01/25/25 22:00 01/25/25 22:02 Temperature 97.6 F L Temperature Source Pulse Rate 12 L 50 L Respiratory Rate 50 H 12 Blood Pressure 99/68 99/68 Blood Pressure Mean 78 78 Pulse Ox 100 100 Oxygen Delivery Method Room Air Weight Weight: 72 kg Body Mass Index (BMI) 25.6 Physical Exam Const alert, no apparent distress and average body habitus Constitutional Narrative: Middle-aged female, actively high on opiates, lethargic and somewhat somnolent appearing but was alert and making appropriate eye contact, sitting back comfortably in bed, in no acute distress. General Appearance: cooperative and comfortable Orientation / Consciousness: lethargic HEENT normocephalic, head/scalp atraumatic, hearing grossly normal bilaterally, nasal mucous membranes and turbinates normal and moist oral mucous membranes Eyes PERRL, EOMs intact bilaterally and conjunctivae normal Neck full ROM Chest inspection of chest normal Resp normal respiratory effort, normal air movement, no use of accessory muscles and clear to auscultation bilaterally Cardio no murmurs and peripheral pulses 2+ throughout Cardio Narrative: Bradycardic, regular rhythm. GI normal to inspection, nondistended, normoactive bowel sounds, soft to palpation,non-tender and non-distended Back/Spine normal ROM Extremity normal to inspection, full ROM and no pedal edema Skin no rashes or lesions noted Results Lab / Micro Data 01/25/25 20:26 01/25/25 20:26 Labs: Laboratory Results - last 24 hr 01/25/25 20:20: Urine Opiates Screen PRESUMPTIVE POSITIVE, U Buprenorphine Qual NEGATIVE, Ur Oxycodone Screen NEGATIVE, Urine Methadone Screen NEGATIVE, Urine Fentanyl Screen PRESUMPTIVE POSITIVE, UrBarbiturates Screen NEGATIVE, Ur Phencyclidine Scrn NEGATIVE, Ur Amphetamines Screen NEGATIVE, U Benzodiazepines Scrn NEGATIVE, Urine Cocaine Screen PRESUMPTIVE POSITIVE, U Cannabinoids Screen NEGATIVE 01/25/25 20:26: WBC 5.8, RBC 3.85 L, Hgb 11.2 L, Hct 33.8 L, MCV 87.8, MCH 29.1,MCHC 33.1, RDW Std Deviation 40.5, RDW Coeff of Caroline 12.6, Plt Count 306, MPV 9.4, Immature Gran % (Auto) 0.300, Neut % (Auto) 54.6, Lymph % (Auto) 31.9, Roberts% (Auto) 5.3, Eos % (Auto) 7.2 H, Baso % (Auto) 0.7, Absolute Neuts (auto) 3.2, Absolute Lymphs (auto) 1.86, Nucleated RBC % 0, Sodium 142, Potassium 4.0, Chloride 109 H, Carbon Dioxide 21.8, Anion Gap 11, BUN 13, Creatinine 0.88, EstimCreat Clear Calc 76.00, Est GFR (MDRD) Non-Af 79, BUN/Creatinine Ratio 15.0, Glucose 143 H, Calcium 9.0, Total Bilirubin 0.35,AST 21, ALT 19, Alkaline Phosphatase 83, Total Protein 6.9, Albumin 4.0, Globulin 3.0, Albumin/Globulin Ratio 1.3, Serum , Qual NEGATIVE, Ethyl Alcohol < 10.1 Assessment & Plan Assessment/Plan (1) Opiate abuse, continuous: (2) Desire for detoxification: PLAN: Plan Patient is a 54-year-old female who presented [facility] ED on 01/25/2025 with opiate abuse and desire for detox. 1. Opiate abuse and desire for detox, polysubstance abuse ? Admit under inpatient status to [facility]. Case management consulted. Urine tox screen positive foropiates, fentanyl and cocaine. Patient actively high inthe ED. She reports using family member's Percocet but notably is a previous heroin and cocaine addict. Will treat with buprenorphine taper and other as needed medications per opiate withdrawal order set. Notably will hold buprenorphine until patient begins to have withdrawal symptoms. 2. Sinus bradycardia ? Patient with sinus bradycardia to the low 50s in the ED. Borderline hypotension to the low 100 systolic. Suspect due to active opiate intoxication. Continue cardiac monitoring. Chronic medical conditions: ? Mild chronic iron deficiency anemia: Hemoglobin 11.2 on admit, at baseline. Continue home iron supplement. ? GERD: Continue home famotidine. ? Anxiety/depression/bipolar disorder: Continue home citalopram. ? Allergic rhinitis: Continue home montelukast. ? History of hepatitis C infection s/p posttreatment DVT prophylaxis: Lovenox CODE STATUS: Full code, unverified Expected disposition: TBD Total clinical time spent by myself addressing the patient's medical issues, reviewing all the data, and collaborating with patient's care team: 55 minutes. Charges/Coding Visit Charges Inpatient E&M: 96386 Init Hosp L2 01/25/25 8185 Cosigner Signature (if applicable): CC: Dr. Yasmani Yanes DO; Dr. Roseline Thakkar MD~ Signed [facility]07-10-2025 Discharge summary [facility] Medical Records Department [address] [place] [address] Emergency Department Summary 01/25/25 MR#: [id number] Acct: [id number] Name: KAMLA HEDRICK Rep #:[id number] : 1970 54 From: Abdoul Morales MD PCP: Dr. Roseline Thakkar MD Stat us:REG ER Location: ED ADDENDUM by Dr. Abdoul Morales MD on 01/25/25 at [address] Yordan Yanes. Full admit MedSurg for detox 01/25/252211 Cosigner Signature (if applicable): cc: Dr. Roseline Thakkar MD ~* Signed HPI History of Present Illness Chief Complaint: Substance Abuse Detail of Chief Complaint: Opiate addiction Informant: patient Onset/Context/Timing Onset: Month(s) Context: Sudden Onset Timing: Continuous Quality: Takes fatty's . Patient states these are Percocet tablets Current Severity: Moderate Maximum Severity: Moderate Worsened by: States her daughter is using her granddaughters upon Relieved by: Nothing Associated Symptoms Associated Symptoms: Positive for change in mental status and no; Negative for vomiting*,diarrhea*, fever*, rash*, seizure, tremor, palpatations, trauma, sex for drugs*, suicidal ideation or homicidal ideation Narrative Narrative: Patient is a 54-year-old woman. She was in [facility] detox program 2022. She was clean until the beginning of this year. She states her daughter is using her granddaughters upon. Shebegan using again. She currently using fatty's . Patient does vape. She denies any other drug use. She states when she was younger she used marijuana. 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 She denies any other drug use. She denies alcohol use. Prior similar symptoms: Yes Recent Illness/Hospitalization: No PFSH PFSH Medical History Hepatitis C infection Noncompliance with medication regimen History of bipolar disorder Polysubstance dependence IV drug abuse Bipolar disorder Iron deficiency anemia Chronic anemia Overweight Allergic rhinitis Polysubstance abuse Anxiety and depression GERD (gastroesophageal reflux disease) Home Medications ?Medication ?Instructions ?Recorded ?Last Taken ?Type citalopram 40 mg tablet 60 mg PO DAILY ANXIETY/DEPRE SSION 03/05/19 03/11/19 History hydroxyzine pamoate 50 mg capsule 50 mg PO DAILY ANXIE TY 03/05/19 03/11/19 History ranitidine HCl 150 mg tablet 150 mg PO DAILY PRN MIGRA INE 03/05/19 03/11/19 History ferrous sulfate 325 mg (65 mg 325 mg PO BID ANEMIA 03/11/19 History iron) tablet topiramate 25 mg tablet 50 mg PO BID PRN PRN Headach e 03/11/19 Unknown History famotidine 40 mg tablet 40 mg PO QHS ACID REFLUX Unknown History montelukast 10 mg tablet 10 mg PO QHS ALLERGIES 03/01 Unknown History Allergy/AdvReac Type Severity Reaction Status Date / Time codeine Allergy Itching Verified 01/25/25 19:43 doxycycline Allergy Itching Verified 01/25/25 19:43 latex Allergy Rash Verified 01/25/25 19:43 Penicillins (cillins) Allergy Swelling Verified 01/25/25 19:43 sulfamethoxazole (From Allergy Rash Verified 01/25/25 19:43 Bactrim) trimethoprim (From Bactrim) Allergy Rash Verified 01/25/25 19:43 naproxen AdvReac Upset Verified 01/25/25 19:43 Stomach NSAIDS (Non-Steroidal AdvReac Upset Verified 01/25/25 19:43 Anti-Inflamma Stomach Family History Mother Diabetes Hypertension Rheumatoid arthritis Father Diabetes Cancer Hypertension Surgical History History of tubal ligation Hx of cholecystectomy Social History household members: other details: Her 18 year old daughter lives with her. Smoking Status: Current every day smoker tobacco type: e-cigarettes alcohol intake: never substance use type: crack/cocaine, heroin, opiates and IV drugs ROS ROS ED Constitutional Constitutional ED: Denies chills, fever(s), subjective, sweats or weight loss Eyes Eyes: Denies blurry vision, change in vision or diplopia ENT ENT ED: Denies ear pain, rhinorrhea or sore throat Cardiovascular Cardiovascular: Denies chest pain or palpitations Respiratory/Chest Respiratory/Chest: Denies cough, dyspnea or dyspnea on exertion Gastrointestinal Gastrointestinal: Denies abdominal pain, diarrhea, nausea or vomiting Genitourinary Genitourinary ED: Denies dysuria or urinary frequency Musculoskeletal Musculoskeletal: Denies arthralgias or myalgias Integumentary Denies rash Neurologic Neurologic: Denies headache(s), paresthesias or weakness Psychiatric Psychiatric: Reports other Details: Patient is giddy. Patient needs to be redirected. ; Denies anxiety or depression Endocrine Endocrinology: Denies cold intolerance or heat intolerance Hematologic/Lymphatic Hematologic/Lymphatic: Denies easy bleeding or easy bruising EXAM Physical Exam Const Vital Signs: 01/25/25 19:43 01/25/25 20:43 01/25/25 21:00 Temperature 97.2 F L Temperature Source Temporal Pulse Rate 57 L 52 L 50 L Respiratory Rate 16 12 12 Blood Pressure 110/76 101/72 101/72 Blood Pressure Mean 87 81 81 Pulse Ox 99 97 97 Oxygen Delivery Method Room Air Room Air Room Air Positive well nourished and well developed General Appearance ED: well developed and NAD; Negative for pallor HEENT Reports TM's clear and moist mucous membranes atraumatic; Negative for tenderness Tympanic Membrane ED: Yes TM's clear Eyes PERRL and EOMs intact bilaterally General Eye ED: Negative for pale conjunctiva or scleral icterus Neck no lymphadenopathy, supple and no JVD Chest Wall inspection of chest normal and palpation of chest normal Resp normal respiratory effort and clear to auscultation bilaterally Cardio regular rate, regular rhythm, S1 normal heart sound, S2 normal heart sound and no murmurs GI soft to palpation, non-tender, non-distended and no masses Back/Spine no CVA tenderness Extremity Extremity Narrative: There is no clubbing or cyanosis. There is no [place] of recent self injury. There is no evidence of cellulitis or abscess. Neuro oriented x3, CN's II-XII intact bilaterally and no sensory deficits noted [place] Coma Scale: document GCS findings Spontaneous Obeys Commands Oriented 15 Sensorium / Orientation: alert Motor Exam: strength 5/5 throughout Psych Psych Narrative: Patient is giddy. She appears inebriated. Skin General Skin Exam: Negative for jaundice or pallor Lesions: no lesions Rashes: no rashes MDM MDM MDM Narrative Medical decision making narrative: Patient reports opiate use. ED addiction medicine protocol was entered. Patient's hospitalization from February [address] Alarcon's discharge summary was noted. Lab Data Attestation: I reviewed the patient's lab results. Lab results narrative: CBC reveals mild anemia. Comprehensive metabolic panel reveals slight elevationin glucose of 143. Serum test is negative. Tox was positive for presumptive opiates, fentanyl and cocaine. Alcohol was nondetected. Labs: Laboratory Results - last 24 hr 01/25/25 01/25/25 20:20 20:26 WBC 5.8 RBC 3.85 L Hgb 11.2 L Hct 33.8 L MCV 87.8 MCH 29.1 MCHC 33.1 RDW Std Deviation 40.5 RDW Coeff of Caroline 12.6 Plt Count 306 MPV 9.4 Immature Gran % (Auto) 0.300 Neut % (Auto) 54.6 Lymph % (Auto) 31.9 Roberts % (Auto) 5.3 Eos % (Auto) 7.2 H Baso % (Auto) 0.7 Absolute Neuts (auto) 3.2 Absolute Lymphs (auto) 1.86 Nucleated RBC % 0 Sodium 142 Potassium 4.0 Chloride 109 H Carbon Dioxide 21.8 Anion Gap 11 BUN 13 Creatinine 0.88 Estim Creat Clear Calc 76.00 Est GFR (MDRD) Non-Af 79 BUN/Creatinine Ratio 15.0 Glucose 143 H Calcium 9.0 Total Bilirubin 0.35 AST 21 ALT 19 Alkaline Phosphatase 83 Total Protein 6.9 Albumin 4.0 Globulin 3.0 Albumin/Globulin Ratio 1.3 Serum , Qual NEGATIVE Urine Opiates Screen PRESUMPTIVE POSITIVE U Buprenorphine Qual NEGATIVE Ur Oxycodone Screen NEGATIVE Urine Methadone Screen NEGATIVE Urine Fentanyl Screen PRESUMPTIVE POSITIVE Ur Barbiturates Screen NEGATIVE Ur Phencyclidine Scrn NEGATIVE Ur Amphetamines Screen NEGATIVE U Benzodiazepines Scrn NEGATIVE Urine Cocaine Screen PRESUMPTIVE POSITIVE U Cannabinoids Screen NEGATIVE Ethyl Alcohol < 10.1 Management Discussion w/another healthcare provider: Hospitalist (Hospitalist was paged to admit for opiate dependence and use.) Discharge Plan Triage Chief Complaint: Substance Abuse ED Provider: Abdoul Morales Dx/Rx/DC Orders Clinical Impression: Opiate dependence, Cocaine abuse, Opiate abuse, continuous, Depression Prescriptions: No Action citalopram 40 MG tablet 60 mg PO [...] TAKE 1 TABLET BY MOUTH EVERY NIGHT Primary Care Provider: Roseline Thakkar Referrals: Roseline Thakkar MD [Primary Care Provider] - Print Language: Salvadorean What to do if you have Problems For any increased pain, shortness of breath, bleeding, nausea or vomiting, chestpain, or any unexpected problems, contact your Primary Care Provider. Call [facility] ([phone]) or report tothe closest Emergency Room. Call 911 if necessary. 01/25/252158 Cosigner Signature (if applicable): CC: Dr. Roseline Thakkar MD ~ Signed [facility]05-13-2025 Telephone encounter Note* Telephone Encounter - Fatimah Cerda LPN - 11/28/2024 4:02 PM EDT noted [facility] [id number] Miscellaneous Notes* Telephone Encounter - Fatimah Jones LPN - 11/28/2024 4:02 PM EDT noted * Telephone Encounter - Em Thornton RN - 11/28/2024 2:02 PM EDT S: Patient spoke with CAC nurse regarding [...] to urinate (i.e., urgency) Protocols used: Urinary [id number] documented in this encounterSThe [facility] [id number] Telephone encounter Note* Telephone Encounter - Em Thornton RN - 11/28/2024 2:02 PM EDT S: Patient spoke with CAC nurse regarding [...] to urinate (i.e., urgency) Protocols used: Urinary [id number] [facility] [id number] Evaluation + Plan note* Assessment & Plan Note - Amanda Canela MD - 10/18/2024 3:00 PM EDTAssociated Problem(s): Varicose veins of both lower extremities [facility] [id number] History of Present illness Narrative* Amanda Canela MD - 10/18/2024 3:00 PM EDT Images from the original note were not included. [facility] [place] [address] [facility] [address] Visit Type: Same Day PCP: Roseline Thakkar [...] for 12-14 hours a day - Wears [place] shoes, previously wore steel-sole shoes which caused [...] MD 10/20/2024 11:33 PM documented in this [facility]04-02-2025 Miscellaneous Notes* Assessment & Plan Note - Amanda Canela MD - 10/18/2024 3:00 PM EDTAssociated Problem(s): Varicose veins of both lower extremities documented in this [facility]04-01-2025 History and physical note Author Yasmani Yanes [facility] Note Date/Time January 25, 2025 10:5 8pm [facility] Medical Records Department [address] [place] [address] H&P Exam - Hospitalist 01/25/252202 MR#: [id number] Acct: [id number] Name: KAMLA HEDRICK Rep #:[id number] : 1970 54 From: Yasmani venegas DO PCP: Dr. Roseline Thakkar MD Stat us:AD[place] [facility] [id number] HPI - General General Date of Admission: 01/25/25 Date of Service: 01/25/25 Chief Complaint: Opiate detox HPI Narrative KAMLA HEDRICK, is a 54 F who presented to [facility] ED on 01/25/2025 desiring opiate detox. Patient last went through opiate detox here [id number]. She was clean until the beginning of this year when she began using her family member's Percocet. She currently vapes tobacco as well. Denies other drug use and denies alcohol use. In the ED she was noted to be actively high onopiates. Sinus bradycardia to the 50s and borderline hypotension to the low 100s systolic, otherwise satting in the high 90s on room air at rest. CBC and CMP were benign. Urine tox screen presented positive for opiates, fentanyl and cocaine. Alcohol level negative. Given desire for opiate detox, hospitalist was contacted for admission. I saw the patient at bedside in the ED. Patient remained actively high, was lethargic and somewhat somnolent. She did make appropriate eye contact but her speech was slowed and she was not answering all questions appropriately. She denies any acute pain or discomfort. Will be admitted for further management. [facility] Medical History Hepatitis C infection Noncompliance with medication regimen History of bipolar disorder Polysubstance dependence IV drug abuse Bipolar disorder Iron deficiency anemia Chronic anemia Overweight Allergic rhinitis Polysubstance abuse Anxiety and depression GERD (gastroesophageal reflux disease) Home Medications ?Medication ?Instructions ?Recorded ?Last Taken ?Type citalopram 40 mg tablet 60 mg PO DAILY ANXIETY/DEPRE SSION 03/05/19 03/11/19 History hydroxyzine pamoate 50 mg capsule 50 mg PO DAILY ANXIE TY 03/05/19 03/11/19 History ranitidine HCl 150 mg tablet 150 mg PO DAILY PRN MIGRA INE 03/05/19 03/11/19 History ferrous sulfate 325 mg (65 mg 325 mg PO BID ANEMIA 03/11/19 History iron) tablet topiramate 25 mg tablet 50 mg PO BID PRN PRN Headach e 03/11/19 Unknown History famotidine 40 mg tablet 40 mg PO QHS ACID REFLUX Unknown History montelukast 10 mg tablet 10 mg PO QHS ALLERGIES 03/01 Unknown History Allergy/AdvReac Type Severity Reaction Status Date / Time codeine Allergy Itching Verified 01/25/25 19:43 doxycycline Allergy Itching Verified 01/25/25 19:43 latex Allergy Rash Verified 01/25/25 19:43 Penicillins (cillins) Allergy Swelling Verified 01/25/25 19:43 sulfamethoxazole (From Allergy Rash Verified 01/25/25 19:43 Bactrim) trimethoprim (From Bactrim) Allergy Rash Verified 01/25/25 19:43 naproxen AdvReac Upset Verified 01/25/25 19:43 Stomach NSAIDS (Non-Steroidal AdvReac Upset Verified 01/25/25 19:43 Anti-Inflamma Stomach Family History Mother Diabetes Hypertension Rheumatoid arthritis Father Diabetes Cancer Hypertension Surgical History History of tubal ligation Hx of cholecystectomy Social History household members: other details: Her 18 year old daughter lives with her. Smoking Status: Current every day smoker tobacco type: e-cigarettes alcohol intake: never substance use type: crack/cocaine, heroin, opiates and IV drugs ROS Constitutional Constitutional: Denies chills, fatigue, fever(s) or weakness Cardiovascular Cardiovascular: Denies chest pain Respiratory/Chest Respiratory/Chest: Denies shortness of breath at rest Gastrointestinal Gastrointestinal: Denies abdominal pain Vital Signs Vital Signs Vital Signs: 01/25/25 19:43 01/25/25 20:43 01/25/25 21:00 Temperature 97.2 F L Temperature Source Temporal Pulse Rate 57 L 52 L 50 L Respiratory Rate 16 12 12 Blood Pressure 110/76 101/72 101/72 Blood Pressure Mean 87 81 81 Pulse Ox 99 97 97 Oxygen Delivery Method Room Air Room Air Room Air 01/25/25 22:00 01/25/25 22:02 Temperature 97.6 F L Temperature Source Pulse Rate 12 L 50 L Respiratory Rate 50 H 12 Blood Pressure 99/68 99/68 Blood Pressure Mean 78 78 Pulse Ox 100 100 Oxygen Delivery Method Room Air Weight Weight: 72 kg Body Mass Index (BMI) 25.6 Physical Exam Const alert, no apparent distress and average body habitus Constitutional Narrative: Middle-aged female, actively high on opiates, lethargic and somewhat somnolent appearing but was alert and making appropriate eye contact, sitting back comfortably in bed, in no acute distress. General Appearance: cooperative and comfortable Orientation / Consciousness: lethargic HEENT normocephalic, head/scalp atraumatic, hearing grossly normal bilaterally, nasal mucous membranes and turbinates normal and moist oral mucous membranes Eyes PERRL, EOMs intact bilaterally and conjunctivae normal Neck full ROM Chest inspection of chest normal Resp normal respiratory effort, normal air movement, no use of accessory muscles and clear to auscultation bilaterally Cardio no murmurs and peripheral pulses 2+ throughout Cardio Narrative: Bradycardic, regular rhythm. GI normal to inspection, nondistended, normoactive bowel sounds, soft to palpation,non-tender and non-distended Back/Spine normal ROM Extremity normal to inspection, full ROM and no pedal edema Skin no rashes or lesions noted Results Lab / Micro Data 01/25/25 20:26 01/25/25 20:26 Labs: Laboratory Results - last 24 hr 01/25/25 20:20: Urine Opiates Screen PRESUMPTIVE POSITIVE, U Buprenorphine Qual NEGATIVE, Ur Oxycodone Screen NEGATIVE, Urine Methadone Screen NEGATIVE, Urine Fentanyl Screen PRESUMPTIVE POSITIVE, Ur Barbiturates Screen NEGATIVE, Ur Phencyclidine Scrn NEGATIVE, Ur Amphetamines Screen NEGATIVE, U Benzodiazepines Scrn NEGATIVE, Urine Cocaine Screen PRESUMPTIVE POSITIVE, U Cannabinoids Screen NEGATIVE 01/25/25 20:26: WBC 5.8, RBC 3.85 L, Hgb 11.2 L, Hct 33.8 L, MCV 87.8, MCH 29.1,MCHC 33.1, RDW Std Deviation 40.5, RDW Coeff of Caroline 12.6, Plt Count 306, MPV 9.4, Immature Gran % (Auto) 0.300, Neut % (Auto) 54.6, Lymph % (Auto) 31.9, Roberts% (Auto) 5.3, Eos % (Auto) 7.2 H, Baso % (Auto) 0.7, Absolute Neuts (auto) 3.2, Absolute Lymphs (auto) 1.86, Nucleated RBC % 0, Sodium 142, Potassium 4.0, Chloride 109 H, Carbon Dioxide 21.8, Anion Gap 11, BUN 13, Creatinine 0.88, EstimCreat Clear Calc 76.00, Est GFR (MDRD) Non-Af 79, BUN/Creatinine Ratio 15.0, Glucose 143 H, Calcium 9.0, Total Bilirubin 0.35, AST 21, ALT 19, Alkaline Phosphatase 83, Total Protein 6.9, Albumin 4.0, Globulin 3.0, Albumin/Globulin Ratio 1.3, Serum , Qual NEGATIVE, Ethyl Alcohol < 10.1 Assessment & Plan Assessment/Plan (1) Opiate abuse, continuous: (2) Desire for detoxification: PLAN: Plan Patient is a 54-year-old female who presented [facility] ED on 01/25/2025 with opiate abuse and desire for detox. 1. Opiate abuse and desire for detox, polysubstance abuse ? Admit under inpatient status to [facility]. Case management consulted. Urine tox screen positive for opiates, fentanyl and cocaine. Patient actively high inthe ED. She reports using family member's Percocet but notably is a previous heroin and cocaine addict. Will treat with buprenorphine taper and other as needed medications per opiate withdrawal order set. Notably will hold buprenorphine until patient begins to have withdrawal symptoms. 2. Sinus bradycardia ? Patient with sinus bradycardia to the low 50s in the ED. Borderline hypotension to the low 100 systolic. Suspect due to active opiate intoxication. Continue cardiac monitoring. Chronic medical conditions: ? Mild chronic iron deficiency anemia: Hemoglobin 11.2 on admit, at baseline. Continue home iron supplement. ? GERD: Continue home famotidine. ? Anxiety/depression/bipolar disorder: Continue home citalopram. ? Allergic rhinitis: Continue home montelukast. ? History of hepatitis C infection s/p posttreatment DVT prophylaxis: Lovenox CODE STATUS: Full code, unverified Expected disposition: TBD Total clinical time spent by myself addressing the patient's medical issues, reviewing all the data, and collaborating with patient's care team: 55 minutes. Charges/Coding Visit Charges Inpatient E&M: 00925 Init Hosp L2 01/25/25 9881 <Electronically signed by Yasmani Yanes DO> Cosigner Signature (if applicable): CC: Dr. Yasmani Yanes DO; Dr. Roseline Thakkar MD~ Signed [facility] Work Phone: [phone] 610-310502-17-2025 Telephone encounter Note* Telephone Encounter - Anna Gallardo RN - 09/04/2024 11:36 AM EST S: Patient spoke with CAC nurse regarding [...] urination Protocols used: Urination Pain - ADULT-[place] [facility] [id number] Miscellaneous Notes* Telephone Encounter - Anna Gallardo RN - 09/04/2024 11:36 AM EST S: Patient spoke with CAC nurse regarding [...] Urination Pain - ADULT-[place] documented in this [facility]01-10-2025 History of Present illness Narrative* Ramya Segovia APRN - TERI - 07/28/2024 12:00 PM EST Images from the original note were not included. [facility] [place] [id number] [facility] [address] [facility] [address] Dept: [phone] Dept Visit Date: 07/28/24 HPI: October Michelle Hedrick is a 53 y.o. female who presents [...] are pruritic. We have no records from [facility], we have requested the patient to complete zabrina prior but no acesss. I have minimal reports via care everywhere. Last ed visit I see was 04/13, so three months ago. A culture was obtained, mrsa. This is when she was prescribed linezolid. Latty it got better but then worsened. Current Outpatient Medications Medication Sig Dispense Refill albuterol 108 (90 Base) MCG/ACT inhaler Inhale 2 puffs every 4 hours as needed for wheezing. 18 g 11 amLODIPine (Norvasc) 5 MG tablet Take 1 tablet (5 mg) by mouth daily. 90 tablet 3 buprenorphine-naloxone (Suboxone) 8-2 MG per sublingual film DISSOLVE 1 (ONE) FILM UNDER THE TONGUEEVERY MORNING, ONE-HALF film EVERY EVENING, and ONE-HALF [...] # 180 mL, Refill(s) 0, Date: 09/17/23 6:46:00PM EST 180 mL 3 topiramate (Topamax) 100 [...] prior as she seems to be picking atthe lesions during exam today. Need to get those records from [facility]-she will complete an zabrina atcheck out- I walked her to check out. [...] Escoto 07/28/2024 12:50 PM documented in this [facility]01-10-2025 History of Present illness Narrative* TANNER Cheng CNP - 07/28/2024 12:00 PM EST Images from the original note were not included. [place] [address] [facility] [address] [facility] [address] Dept: [phone] Dept Visit Date: 07/28/24 HPI: October Ryley [...] are pruritic. We have no records from [facility], we have requested the patient to complete zabrina prior but no acesss. I have minimal reports via care everywhere. Last ed visit I see was 04/13, so three months ago. A culture was obtained, mrsa. This is when she was prescribed linezolid. Latty it got better but then worsened. Current Outpatient Medications Medication Sig Dispense Refill albuterol 108 (90 Base) MCG/ACT inhaler Inhale 2 puffs every 4 hours as needed for wheezing. 18 g 11 amLODIPine (Norvasc) 5 MG tablet Take 1 tablet (5 mg) by mouth daily. 90 tablet 3 buprenorphine-naloxone (Suboxone) 8-2 MG per sublingual film DISSOLVE 1 (ONE) FILM UNDER THE TONGUEEVERY MORNING, ONE-HALF film EVERY EVENING, and ONE-HALF [...] # 180 mL, Refill(s) 0, Date: 09/17/23 6:46:00PM EST 180 mL 3 topiramate (Topamax) 100 [...] prior as she seems to be picking atthe lesions during exam today. Need to get those records from [facility]-she will complete an zabrina atcheck out- I walked her to check out. [...] Escoto 07/28/2024 12:50 PM documented in this [facility]01-10-2025 Miscellaneous Notes* Addendum Note - TANNER Cheng CNP - 07/28/2024 12:00 PM ESTAddended by: RAMYA SEGOVIA on: 08/01/2024 09:14 AM Modules accepted: Level of Service documented in this [facility]01-10-2025 Note* Addendum Note - TANNER Cheng CNP - 07/28/2024 12:00 PM ESTAddended by: RAMYA SEGOVIA on: 08/01/2024 09:14 AM Modules accepted: Level of Service [facility] [id number] Telephone encounter Note* Telephone Encounter - Patricia Metcalf MA - 07/03/2024 12:49 PM EST Spoke with pt advising message She advised her sx haven't resolved after finishing the medication Pt tried to get a refill but DDM advised she needs seen by the office Appt scheduled with RONY tomorrow [facility] [id number] Miscellaneous Notes* Telephone Encounter - Patricia Metcalf MA - 07/03/2024 12:49 PM EST Spoke with pt advising message She advised her sx haven't resolved after finishing the medication Pt tried to get a refill but DDM advised she needs seen by the office Appt scheduled with tomorrow * Telephone Encounter - Roseline Thakkar DO - 07/03/2024 12:43 PM EST She needs to talk to [facility] about this. Not sure why she needs a refill of the med she already took for the mrsa. * Telephone Encounter - Wild Hull - 06/30/2024 3:40 PM EST Name of caller: October Contact phone number: [phone] Relationship to Patient: patient Provider: Ariane Practice: [facility] Chief Complaint/Reason for Call: Patient called back in with the medication name for her MRSA. It is called VIVI (Gabrielleolid). Please note and advise. Best time of day caller can be reached: any Patient advised that office/PCP has 24-48 business hours to return their call: No * Telephone Encounter - Kate Clifton MA - 06/20/2024 9:02 AM EST Lmom letting pt know [facility] message sent and needing for [facility] information to get list of Rx pt was on. * Telephone Encounter - Kate Clifton MA - 06/16/2024 9:48 AM EST Lmom to fill out ZABRINA for Rx from [facility]. * Telephone Encounter - Roseline Thakkar DO - 06/06/2024 12:51 PM EST Please obtain records from [facility]. * Telephone Encounter - Zuleika Tadeo - 06/05/2024 3:37 PM EST Name of caller: October Contact phone number: [phone] Relationship to Patient: patient Provider: ariane Practice: [facility] Chief Complaint/Reason for Call: patient says she went to [facility] and they told her she has [...] return their call: no documented in this [facility]12-16-2024 Telephone encounter Note* Telephone Encounter - Roseline Thakkar DO - 07/03/2024 12:43 PM EST She needs to talk to [facility] about this. Not sure why she needs a refill of the med she already took for the mrsa. [facility] [id number] Telephone encounter Note* Telephone Encounter - Wild Hull - 06/30/2024 3:40 PM EST Name of caller: October Contact phone number: [phone] Relationship to Patient: patient Provider: Ariane Practice: [facility] Chief Complaint/Reason for Call: Patient called back in with the medication name for her MRSA. It is called ZYVIX (Lineolid). Please note and advise. Best time of day caller can be reached: any Patient advised that office/PCP has 24-48 business hours to return their call: No [facility] [id number] Miscellaneous Notes* Telephone Encounter - Wild Hull - 06/30/2024 3:40 PM EST Name of caller: October Contact phone number: [phone] Relationship to Patient: patient Provider: Ariane Practice: [facility] Chief Complaint/Reason for Call: Patient called back in with the medication name for her MRSA. It is called ZYVIX (Lineolid). Please note and advise. Best time of day caller can be reached: any Patient advised that office/PCP has 24-48 business hours to return their call: No * Telephone Encounter - Kate Clifton MA - 06/20/2024 9:02 AM EST Lmom letting pt know [facility] message sent and needing for [facility] information to get list of Rx pt was on. * Telephone Encounter - Kate Clifton MA - 06/16/2024 9:48 AM EST Lmom to fill out ZABRINA for Rx from [facility]. * Telephone Encounter - Roseline Thakkar DO - 06/06/2024 12:51 PM EST Please obtain records from [facility]. * Telephone Encounter - Zuleika Tadeo - 06/05/2024 3:37 PM EST Name of caller: October Contact phone number: [phone] Relationship to Patient: patient Provider: ariane Practice: lynda Chief Complaint/Reason for Call: patient says she went [facility] and they told her she has [...] return their call: no documented in this [facility]12-06-2024 Telephone encounter Note* Telephone Encounter - Ashlee Chu RN - 06/23/2024 11:50 AM EST We have been unable to reach your patient to schedule their testing. Test Name: Head and neck ultrasound 1st Attempt: 01/15/24 via Wetp[employer] message 2nd Attempt: Cancelled/no show 01/19/24, 01/29/24, 06/07/24 TE sent to office, cancel request 06/23/24 [place] [id number] Miscellaneous Notes* Telephone Encounter - Ashlee Chu RN - 06/23/2024 11:50 AM EST We have been unable to reach your patient to schedule their testing. Test Name: Head and neck ultrasound 1st Attempt: 01/15/24 via Wetp[employer] message 2nd Attempt: Cancelled/no show 01/19/24, 01/29/24, 06/07/24 TE sent to office, cancel request 06/23/24 documented in this [facility]12-03-2024 Telephone encounter Note* Telephone Encounter - Kate Clifton MA - 06/20/2024 9:02 AM EST Lmom letting pt know [employer] message sent and needing for [facility] information to get list of Rx pt was on. [address] StreetDuuhrg76-90-7129 Miscellaneous Notes* Telephone Encounter - Kate Clifton MA - 06/20/2024 9:02 AM EST Lmom letting pt know [employer] message sent and needing for [facility] information to get list of Rx pt was on. * Telephone Encounter - Kate Clifton MA - 06/16/2024 9:48 AM EST Lmom to fill out ZABRINA for Rx from [facility]. * Telephone Encounter - Roseline Thakkar DO - 06/06/2024 12:51 PM EST Please obtain records from [facility]. * Telephone Encounter - Zuleika Carlyle - 06/05/2024 3:37 PM EST Name of caller: October Contact phone number: [phone] Relationship to Patient: patient Provider: ariane Practice: lynda Chief Complaint/Reason for Call: patient says she went [facility] and they told her she has [...] return their call: no documented in this encounterSThe Christ HospitalZsnvoj73-17-1801 Telephone encounter Note* Telephone Encounter - Kate Clifton MA - 06/16/2024 9:48 AM EST Lmom to fill out ZABRINA for Rx from [facility]. [facility] CenterCmzfco90-01-9996 Miscellaneous Notes* Telephone Encounter - Kate Clifton MA - 06/16/2024 9:48 AM EST Lmom to fill out ZABRINA for Rx from [facility]. * Telephone Encounter - Roseline Thakkar DO - 06/06/2024 12:51 PM EST Please obtain records from [facility]. * Telephone Encounter - Zuleika Tadeo - 06/05/2024 3:37 PM EST Name of caller: October Contact phone number: [phone] Relationship to Patient: patient Provider: ariane Practice: lynda Chief Complaint/Reason for Call: patient says she went [facility] and they told her she has [...] return their call: no documented in this encounterSThe Christ HospitalQqwflp08-82-2040 Telephone encounter Note* Telephone Encounter - Roseline Thakkar DO - 06/06/2024 12:51 PM EST Please obtain records from [facility]. [facility] CenterZzhyhs26-28-1189 Miscellaneous Notes* Telephone Encounter - Roseline Thakkar DO - 06/06/2024 12:51 PM EST Please obtain records from [facility]. * Telephone Encounter - Zuleika Tadeo - 06/05/2024 3:37 PM EST Name of caller: October Contact phone number: [phone] Relationship to Patient: patient Provider: ariane Practice: lynda Chief Complaint/Reason for Call: patient says she went [facility] and they told her she has [...] return their call: no documented in this [facility]11-18-2024 Telephone encounter Note* Telephone Encounter - Meena Cano - 06/05/2024 4:39 PM EST Name of caller: October Contact phone number: [phone] Relationship to Patient: patient Provider: Ariane Practice: Lyn[facility] Primary Chief Complaint/Reason for Call: Patient said she needs her amlodipine sent to the [facility]. Please advise Best time of day caller can be reached: any Patient advised that office/PCP has 24-48 business hours to return their call: No [facility] CenterLgdxpu34-22-6196 Miscellaneous Notes* Telephone Encounter - Meena Cano - 06/05/2024 4:39 PM EST Name of caller: October Contact phone number: [phone] Relationship to Patient: patient Provider: Ariane Practice: [facility] Primary Chief Complaint/Reason for Call: Patient said she needs her amlodipine sent to the [facility] on [address] Please advise Best time of day caller can be reached: any Patient advised that office/PCP has 24-48 business hours to return their call: No documented in this [facility]11-18-2024 Telephone encounter Note* Telephone Encounter - Zuleika Tadeo - 06/05/2024 3:37 PM EST Name of caller: October Contact phone number: [phone] Relationship to Patient: patient Provider: ariane Practice: lynda Chief Complaint/Reason for Call: patient says she went [facility] and they told her she has [...] business hours to return their call: no [facility]09-26-2024 NoteED Nursing Discharge Summary Entered On: 04/13/2024 17:21 EDT Performed On: 04/13/2024 17:00 EDT by Agustina Goodman RN DC Information [id number] ED IV's : No IV ED IV Site Assessment : No IV ED Vitals Completed : Yes ED Final Assessment Completed : Yes ED Progress Note Completed : Yes Complete all PRN/Pain response forms? : Yes ED Disassociate Patient from Monitor : Yes Updated Depart Time : Yes ED Belongings sent w patient [id number] : Not applicable Agustina Goodman RN - 04/13/2024 17:21 EDT Education Instructions given to : Patient TeachBack Methodology : Explanation, Printed Material Barriers to Learning : None evident Agustina Goodman RN - 04/13/2024 17:21 EDT ED Assistance Summary Assistance Given? : No Agustina Goodman RN - 04/13/2024 17:[address] [facility]09-10-2024 History of Present illness Narrative* Roseline Thakkar DO - 03/28/2024 1:40 PM EDT Images from the original note were not included. [facility] [address] [facility] [address] Visit Type: Office Visit PCP: Roseline Thakkar DO Reason for Visit: Rash (Rash/bumps are not improving. Patient reports rash all over body not going away. (Possibly from roommate) ), UTI (UTI symptoms. Reports urgency, burning, spasms ), and DiscussMedications (Wants to take Topamax only prn, also [...] scabies. Notes she is following with the produce team lead. Has appt with derm on Wednesday. (Dr. [...] film DISSOLVE 1 (ONE) FILM UNDER THE TONGUEEVERY MORNING, ONE-HALF film EVERY EVENING, and ONE-HALF [...] # 180 mL, Refill(s) 0, Date: 09/17/23 6:46:00PM EST 180 mL 3 albuterol 108 (90 [...] DO 03/28/2024 5:21 PM documented in this [facility]08-28-2024 Telephone encounter Note* Telephone Encounter - Roya Carlin RN - 03/15/2024 3:25 PM EDT S: Patient spoke with CAC nurse regarding [...] instructed to call back with new or worseningsymptoms. Reason for Disposition Mild widespread rash (Exception: Heat rash lasting 3 days or less.) Protocols used: Rash or Redness - [id number] [facility] [id number] Miscellaneous Notes* Telephone Encounter - Roya Carlin RN - 03/15/2024 3:25 PM EDT S: Patient spoke with CAC nurse regarding [...] instructed to call back with new or worseningsymptoms. Reason for Disposition Mild widespread rash (Exception: Heat rash lasting 3 days or less.) Protocols used: Rash or Redness - Nfxjrphjfb-LLEMU-HM documented in this encounterSThe Christ HospitalPjndoj13-92-3972 NoteED Nursing Discharge Summary Entered On: 03/03/2024 12:07 EDT Performed On: 03/03/2024 12:00 EDT by Pat TRACY, Ramya FRANKLIN Information [id number] ED IV's : No IV ED IV Site Assessment : No IV ED Vitals Completed : Yes ED Final Assessment Completed : Yes ED Progress Note Completed : Yes Complete all PRN/Pain response forms? : Yes ED Disassociate Patient from Monitor : N/A Updated Depart Time : Yes ED Belongings sent w patient [id number] : Not applicable Ramya Stewart RN - [...] Ramya Stewart RN - 03/03/2024 12:07 EDT [facility]06-25-2024 History of Present illness Narrative* Jennifer Rocha PA-C - 01/11/2024 3:00 PM EDT Images from the original note were not included. [facility] [address] [facility] [facility] [address] Dept: [phone] Dept Reason for Visit: Neck Mass (Lymph node, x 3 wks, bilateral, painful) Assessment and Plan 1. Lymphadenopathy, cervical - US head neck soft tissue Follow up if symptoms worsen or fail to improve. Subjective HPI Pt presents today for evaluation of lymph nodes in her neck. Was seen by the produce team lead and was told to follow up with [...] # 180 mL, Refill(s) 0, Date: 09/17/23 6:46:00PM EST 180 mL 3 topiramate (Topamax) 100 [...] Imaging/Testing: Jennifer Rocha PA-C documented in this [facility]06-25-2024 History of Present illness Narrative* Jennifer Rocha PA-C - 01/11/2024 3:00 PM EDT Images from the original note were not included. [facility] [address] [facility] [facility] [address] Dept: [phone] Dept Reason for Visit: Neck Mass (Lymph node, x 3 wks, bilateral, painful) Assessment and Plan 1. Lymphadenopathy, cervical - US head neck soft tissue Follow up if symptoms worsen or fail to improve. Subjective HPI Pt presents today for evaluation of lymph nodes in her neck. Was seen by the produce team lead and was told to follow up with [...] # 180 mL, Refill(s) 0, Date: 09/17/23 6:46:00PM EST 180 mL 3 topiramate (Topamax) 100 [...] Imaging/Testing: Jennifer Rocha PA-C documented in this [facility]06-25-2024 Miscellaneous Notes* Addendum Note - Jennifer Rocha PA-C - 01/11/2024 3:00 PM EDTAddended by: JENNIFER ROCHA on: 01/12/2024 11:20 AM Modules accepted: Level of Service documented in this [facility]06-25-2024 Note* Addendum Note - Jennifer Rocha PA-C - 01/11/2024 3:00 PM EDTAddended by: JENNIFER ROCHA on: 01/12/2024 11:20 AM Modules accepted: Level of Service [facility] CenterVnqzok91-12-8763 NoteAddended by: JENNIFER ROCHA on: 01/12/2024 11:20 AM Modules accepted: [facility] Telephone encounter Note* Telephone Encounter - Roseline Thakkar DO - 12/08/2023 2:33 PM EDT Yes. No urgency. [facility] CenterYlczbl97-87-7077 Miscellaneous Notes* Telephone Encounter - Roseline Thakkar DO - 12/08/2023 2:33 PM EDT Yes. No urgency. * Telephone Encounter - Carina Koch - 12/08/2023 11:31 AM EDT Name of caller: October Contact phone number: [phone] Relationship to Patient: Patient Provider: Practice: [facility] Chief Complaint/Reason for Call: Patient called in regarding voicemail left. Patient stated she only can come in the afternoon, scheduled 12/15 with . Please advise. Best time of day caller can be reached: N/A Patient advised that office/PCP has 24-48 business hours to return their call: N/A * Telephone Encounter - Valarie Villegas - 12/08/2023 11:02 AM EDT Sent Informed[employer] message * Telephone Encounter - Valarie Villegas - 12/08/2023 10:54 AM EDT Left message on patient's voicemail asking her to call back and schedule an office visit. If patient calls, please schedule first available 20 OV. * Telephone Encounter - Roseline Thakkar DO - 12/08/2023 10:45 AM EDT 20 fine. * Telephone Encounter - Roseline Thakkar DO - 12/07/2023 4:40 PM EDT That's fine. * Telephone Encounter - Israel Rea - 12/07/2023 3:21 PM EDT Name of caller: Annita Contact phone number: [phone] Relationship to Patient: [facility] Provider: Dr. Thakkar Practice: [facility] Chief Complaint/Reason for Call: (pt was not on the line to triage) PT was seen downstairs at [facility] today and it was [...] return their call: Yes documented in this [facility]05-22-2024 Telephone encounter Note* Telephone Encounter - Carina Loretta Koch - 12/08/2023 11:31 AM EDT Name of caller: October Contact phone number: [phone] Relationship to Patient: Patient Provider: Practice: [facility] Chief Complaint/Reason for Call: Patient called in regarding voicemail left. Patient stated she only can come in the afternoon, scheduled 12/15 with . Please advise. Best time of day caller can be reached: N/A Patient advised that office/PCP has 24-48 business hours to return their call: N/A [facility] [id number] Telephone encounter Note* Telephone Encounter - Valarie Villegas - 12/08/2023 11:02 AM EDT Sent Caperflyt message [facility] CenterZlyjoy23-06-2103 Telephone encounter Note* Telephone Encounter - Valarie Villegas - 12/08/2023 10:54 AM EDT Left message on patient's voicemail asking her to call back and schedule an office visit. If patient calls, please schedule first available 20 OV. [facility] CenterWynzbr54-47-8375 Telephone encounter Note* Telephone Encounter - Roseline Thakkar DO - 12/08/2023 10:45 AM EDT 20 fine. [facility] CenterUcmylm80-11-1555 Telephone encounter Note* Telephone Encounter - Roseline Thakkar DO - 12/07/2023 4:40 PM EDT That's fine. [facility] CenterHvirmf74-49-5292 Telephone encounter Note* Telephone Encounter - Israel Rea - 12/07/2023 3:21 PM EDT Name of caller: Annita Contact phone number: [phone] Relationship to Patient: [facility] Provider: Dr. Thakkar Practice: [facility] Chief Complaint/Reason for Call: (pt was not on the line to triage) PT was seen downstairs at [facility] today and it was discovered that pt has palpable lymph nodes and was advised to be seen immediately. The office states they can fax any clinical documentation if need be. Please advise pt on next steps. Best time of day caller can be reached: any Patient advised that office/PCP has 24-48 business hours to return their call: Yes [facility] CenterQlceuq27-51-3218 History of Present illness Narrative* Roseline Thakkar DO - 11/12/2023 11:20 AM EDT Images from the original note were not included. [facility] [address] [facility] [address] [facility] [id number] Visit Type: New To Provider PCP: Roseline [...] FROM HEAD TO SOLES OF FEET ONE time.LEAVE ON FOR 8-14 Hours and THEN REMOVE [...] She was getting substance abuse treatment at [place] [address]. Currently living in a sober house - [facility]. Psych is through [facility]. She has the following concerns today: Seen by UC at [facility] for scalp lesions and lymph node [...] # 180 mL, Refill(s) 0, Date: 09/17/23 6:46:00PM EST No facility-administered medications prior to visit. Past Medical History: Diagnosis Date SEGUNDO (acute kidney injury) (HCC) 01/06/2016 Anxiety Asthma Bipolar disorder (HCC) Bipolar I disorder (HCC) 11/16/2019 control [facility] 10/10/14 BMI 33.0-33.9,adult Chronic back pain Degeneration [...] 0 min Stress: Stress Concern Present (11/12/2023) [employer] - Occupational Stress Questionnaire Feeling of Stress : To some extent Social Connections: Moderately Integrated (11/12/2023) Social Connection and Isolation Panel [NHANES] Frequency of Communication with Friends and Family: More than three times a week Frequency of Social Gatherings with Friends and Family: Once a week Attends Zoroastrianism Services: More than 4 times per year [...] to 64 Years) (1 of 2 - PCV)Never done Depression Monitoring Never done Hepatitis B [...] file for this visit. documented in this [facility]03-07-2024 Telephone encounter Note* Telephone Encounter - Citlalli Templeton - 09/23/2023 2:51 PM EST error [facility] [id number] Miscellaneous Notes* Telephone Encounter - Citlalli Templeton - 09/23/2023 2:51 PM EST error documented in this [facility]03-01-2024 NoteED Nursing Discharge Summary Entered On: 09/17/2023 19:06 EST Performed On: 09/17/2023 19:05 EST by Agustina Goodman RN DC Information [id number] ED IV's : No IV ED IV Site Assessment : No IV ED Vitals Completed : Yes ED Final Assessment Completed : Yes ED Progress Note Completed : Yes Complete all PRN/Pain response forms? : N/A ED Disassociate Patient from Monitor : Yes Updated Depart Time : Yes ED Belongings sent w patient [id number] : Not applicable Agustina Goodman RN - 09/17/2023 19:06 EST Education Instructions given to : Patient TeachBack Methodology : Explanation, Printed Material Barriers to Learning : None evident Agustina Goodman RN - 09/17/2023 19:06 EST ED Assistance Summary Assistance Given? : No Agustina Goodman RN - 09/17/2023 19:[address] [facility]02-29-2024 Telephone encounter Note* Telephone Encounter - Jennyfer Jon RN - 09/16/2023 4:48 PM EST S: RADHAMES Sheppard with [facility] spoke with [facility] nurse regarding neck lump. B: Onset of symptoms/concern today. A: [facility] [employer] Real Estate Attorney states that patient is at Urgent Care at this time. Valarie would like further advice on whether or not patient's PCP would like patient to follow up in office today ortomorrow or go to ED at this time for lumps on neck and lymphadenopathy. R: Spoke with back line office staff at this time. Per back line office staff, all of the providershave left for the day. RADHAMES Sheppard advised. Per RADHAMES Sheppard, I am just going to send the patient thethe ER for a full work up then. No further needs at this time. Reason for Disposition Doctor (or PRINCIPAL WEB DEVELOPER/PA) call to PCP Protocols used: PCP Call - No [id number] [facility] [id number] Miscellaneous Notes* Telephone Encounter - Jennyfer Jon RN - 09/16/2023 4:48 PM EST S: RADHAMES Sheppard with [facility] spoke with [facility] nurse regarding neck lump. B: Onset of symptoms/concern today. A: Val[facility] [employer] Real Estate Attorney states that patient is at Urgent Care at this time. Valarie would like further advice on whether or not patient's PCP would like patient to follow up in office today ortomorrow or go to ED at this time for lumps on neck and lymphadenopathy. R: Spoke with back line office staff at this time. Per back line office staff, all of the providershave left for the day. RADHAMES Sheppard advised. Per RADHAMES Sheppard, I am just going to send the patient thethe ER for a full work up then. No further needs at this time. Reason for Disposition Doctor (or PRINCIPAL WEB DEVELOPER/PA) call to PCP Protocols used: PCP Call - No [id number] documented in this [facility]12-20-2023 Telephone encounter Note* Telephone Encounter - Fatimah Cerda LPN - 07/07/2023 1:25 PM EST Patient has not been seen by you since 2019, has an appt 07/27/23. Dr. Duong sees and rx's topamax and tramadol. If you prefer not to rx until appt, we can call and let patient know. [facility] CenterVeavdu73-29-4698 Miscellaneous Notes* Telephone Encounter - Fatimah Jones LPN - 07/07/2023 1:25 PM EST Patient has not been seen by you since 2019, has an appt 07/27/23. Dr. Duong sees and rx's topamax and tramadol. If you prefer not to rx until appt, we can call and let patient know. * Telephone Encounter - Kiko Mascorroer - 07/07/2023 1:01 PM EST Patient states she is out of all [...] (see medication tab): 12.16.21 documented in this [facility]12-20-2023 Telephone encounter Note* Telephone Encounter - Kiko Yap - 07/07/2023 1:01 PM EST Patient states she is out of all [...] Date of last refill (see medication tab): 5.31.22 [facility]12-08-2023 NoteHNO ID: [id number] Author: Ashlee Iyer APRN.TERI Service: ? Author [...] Follow up if itching continues Ashlee Iyer APRN.[facility]12-08-2023 History of Present illness Narrative* Ashlee Iyer APRN.CLOTH STOCK SORTER - 06/25/2023 5:14 PM EST Subjective HPI October presents today with compliant [...] file. ALLERGIES Codeine, Latex, Latuda [Lurasidone], Penicillins, Sulfamethoxazole- Trimethoprim, Vancomycin, and Zoloft [Sertraline] MEDICATIONS escitalopram oxalate [...] up if itching continues Ashlee Iyer APRN.TERI documented in this [facility]Southview [facility] Center10-25-2023 NoteHNO ID: [id number] Author: Jen Gore APRN.CNP Service: ? Author Type: Nurse Practitioner Type: Progress Notes Filed: 05/12/2023 4:17 PM Note Text: Subjective HPI HPI October Ryley is a [...] - PREDNISONE 10 MG TABLET Jen Gore [facility]N.[facility]10-[facility]-2023 NoteHNO ID: [id number] Author: Radha Delacruz RT(R) Service: ? Author Type: Fish Rod Maker Type: Progress Notes Filed: 05/12/2023 4:06 PM [...] BY: RT Roxane(R) May 12, 2023 3:57 [facility]10-25-2023 History of Present illness Narrative* Jen Gore APRN.CLOTH STOCK SORTER - 05/12/2023 3:59 PM EDT Subjective HPI HPI Kamla Hedrick is a 52 year old female who presents today for CC of cough, congestion, dx covid 2.5 weeks ago. This started 2.5 weeks ago. Has tried otc medication for relief. Symptoms are worsenedby nothing. Risk factors hx of asthma. vapes. .Patient presents with: Cough: LACY, coughing up mucus, chest feels heavy x 2.5 weeks No past medical history on file. No past surgical history on file. ALLERGIES Codeine, Latex, Latuda [Lurasidone], Penicillins, Sulfamethoxazole- Trimethoprim, Vancomycin, and Zoloft [Sertraline] MEDICATIONS escitalopram oxalate [...] - PREDNISONE 10 MG TABLET Jen Gore APRN.CLOTH STOCK SORTER documented in this encounterSouthview Medical Center08-15-2023 Progress note Author Taylor [facility] March 02, 2023 12:43pm Note Date/Time March 02, 2023 12 :43pm [facility] Medical Records Department [address] [place] [address] Progress Note - Hospitalist 03/02/23 1240 MR#: [id number] Acct: [id number] Name: KAMLA HEDRICK Rep #:[id number] : 1970 52 From: Taylor Alarcon DO PCP: Dr. Shira Rider MD Status:ADM IN Location: [place] [address]- Reason for Visit Reason for Visit: Opiate [...] habitus and well nourished Constitutional Narrative: Middle-aged, -[place] female, sitting up in bed watching television, [...] frequent ambulation Charges/Coding Visit Charges Inpatient E&M: 54013 [facility] L[facility] 03/02/23 1243 <Electronically signed by Taylor Alarcon DO> Cosigner Signature (if applicable): CC: ~ Signed [facility] Work Phone: 1(784) 752-978208-14-2023 Progress note Author Taylor Alarcon [facility] March 01, 2023 8:19am Note Date/Time March 01, 2023 8: 04am [facility] Medical Records Department [address] [place] [address] Progress Note - Hospitalist 03/01/23 0759 MR#: [id number] Acct: [id number] Name: KAMLA HEDRICK Rep #:[id number] : 1970 52 From: Taylor Alarcon DO PCP: Dr. Shira Rider MD Status:ADM IN Location: [place] [id number] Reason for Visit Reason for Visit: Acute opiate withdrawal Subjective Subjective Ms. Hedrick is a 52-year-old white female with a history of opiate abuse who presented to the emergency department at [facility] on 03/01/2023 andacute opiate withdrawal. She [...] % (Auto) 54.0, Lymph % (Auto) 32.7, Roberts% (Auto) 7.2, Eos % (Auto) 4.9, Baso [...] Cosigner Signature (if applicable): CC: ~ Signed [facility] Work Phone: 1(395) 285-102308-14-2023 History and physical note Author Kristen Caraballo [facility] March 01, 2023 2:35am Note Date/Time March 01, 2023 1: 48am [facility] Medical Records Department [address] [place] [address] H&P Exam - Hospitalist 03/01/23 0145 MR#: [id number] Acct: [id number] Name: KAMLA HEDRICK Rep #:[id number] : 1970 52 From: Kristen Caraballo MD PCP: Dr. Shira Rider MD Status:ADM IN Location: [facility] [id number]- 1 HPI - General General Date of Admission: 03/01/23 Date of Service: 03/01/23 Chief Complaint: Acute Opiate withdrawal HPI Narrative The patient is a 52 y/o F w/ PMHx: Allergic rhinitis, HTN, Anxiety and Depression/Bipolar disorder, GERD, Overweight, Polysubstance abuse (Percocet/Opiates/Cocaine, Prior IVDA w/ heroin) who presents to the [facility] ED on 03/01/23 with noted acute [...] MDMA and cocaine, ethyl alcohol level <3. [facility] Medical History (Updated 03/01/23 @ [...] % (Auto) 54.0, Lymph % (Auto) 32.7, Roberts% (Auto) 7.2, Eos % (Auto) 4.9, Baso [...] IVDA w/ heroin) who presents to the [facility] ED on 03/01/23 with noted acute opiate withdrawal onset starting just prior to presentation following last dose at approximately 10 PM on day prior to presentation with primarily at this point mild agitation and restlessness. #1. Acute Opiate Withdrawal: Will admit to [place], routine labs including CBC, BMP,urine for drug [...] Allergic rhinitis: From records patient Rx 10/24/22 mateoulair, given her psychiatric history to be cautious with its black box warning will d/c this medication and recommend claritin or allergra as an initial agent instead. #10. Overweight: Weight loss and lifestyle changes encouraged. #11. DVT prophylaxis: Low risk for current presentation. Charges/Coding Visit Charges Inpatient E&M: 63131 Init Hosp L3 03/01/23 0235 <Electronically signed by Kristen Caraballo MD> Cosigner Signature (if applicable): CC: Dr. Kristen Caraballo MD; Dr. Shira Rider MD~ Signed [facility] Work Phone: 1(650) 647-699208-14-2023 Discharge summary Author Fabio Mcbride [facility] March 01, 2023 2:21am Note Date/Time March 01, 2023 1: 23am [facility] Medical Records Department [address] [place] [address] Emergency Department Summary 03/01/23 MR#: [id number] Acct: [id number] Name: RYLEYOctober Rep #:[id number] : 1970 52 From: Fabio Lieberman PCP: Dr. Shira Rider MD Status:ADM IN Location: [place] [address] HPI History of Present Illness Chief Complaint: Substance Abuse Informant: patient Narrative Narrative: Presents here requesting detox. Reports previous heroin user went to [facility] in 2017. Patient relapsed this past [...] She was reporting when she was in [facility] had polysubstance findings from her toxicology screen including methadone MDMA and benzos which she states she did not use those. She had meth stating she tried it before [facility] did not like it. Medically discussion she states she has concerns for leg swelling. No trouble urinating. She states shewas attacked by pit bull in January before going to [facility]. Denies any fevers. Prior similar symptoms: Yes PFSH [facility] Medical History (Updated 03/01/23 @ [...] clinician: Hospitalist This note was generated with [employer] dictation software. It may contain incorrectwords, spelling, [...] % (Auto) 54.0 Lymph % (Auto) 32.7 Roberts % (Auto) 7.2 Eos % (Auto) 4.9 [...] regimen, Hypokalemia Disposition Disposition: Acute Care Hospital [facility] What to do if you have Problems For any increased pain, shortness of breath, bleeding, nausea or vomiting, chestpain, or any unexpected problems, contact your Primary Care Provider. Call [facility] ([phone]) or report to the closest Emergency Room. Call 911 if necessary. 03/01/23 0221 <Electronically signed by Fabio Lieberman> Cosigner Signature (if applicable): CC: Dr. Shira Rider MD ~ Signed [facility] Work Phone: 1(672) 177-743601-06-2023 Telephone encounter Note* Telephone Encounter - Kalee Patel RN - 07/24/2022 4:43 PM EST S: Patient spoke with [facility] nurse regarding bugs are leaving imprints all [...] living) Protocols used: Bipolar Disorder (Manic Depression)-[facility]- [facility] [id number] Miscellaneous Notes* Telephone Encounter - Kalee Patel RN - 07/24/2022 4:43 PM EST S: Patient spoke with [facility] nurse regarding bugs are leaving imprints all [...] now, [facility] Patient understands care advice. No further needs at this time. Patient instructed to call back with new or worsening symptoms. Reason for Disposition [1] Bipolar disorder (manic depression) AND [2] worsening (e.g., thinking less clearly, more agitated, less able to do activities of daily living) Protocols used: Bipolar Disorder (Manic Depression)-ADULT- documented in [facility] [id number] Telephone encounter Note* Telephone Encounter - Marva [...] Protocols used: No Contact or Duplicate Contact Pyvz-[id number] [facility] [id number] Miscellaneous Notes* Telephone Encounter - Marva Dye RN - 07/23/2022 8:26 PM EST S: [facility] regarding head lice. B: Per nurse triage ticket created by IGNACIO A: Patient disconnected prior to speaking with nurse. No answer upon return call to patient. R: Attempted to return call to pt two times. Left voice message for patient to call the office if assistance is still needed. Reason for Disposition Second attempt to contact caller AND no contact made. Phone number verified. Protocols used: No Contact or Duplicate Contact [id number] documented in this [facility] summary Author Fabio Mcbride [facility] March 01, 2023 2:21am Note Date/Time March 01, 2023 1: 23am [facility] Medical Records Department [address] [place] [address] Emergency Department Summary 03/01/23 MR#: [id number] Acct: [id number] Name: RYLEYOctober Rep #:[id number] : 1970 52 From: Fabio Lieberman PCP: Dr. Shira Rider MD Status:ADM IN Location: [address] History of Present Illness Chief Complaint: Substance Abuse Informant: patient Narrative Narrative: Presents here requesting detox. Reports previous heroin user went to [facility] in 2018. Patient relapsed this past [...] She was reporting when she was in [facility] had polysubstance findings from her toxicology screen including methadone MDMA and benzos which she states she did not use those. She had meth stating she tried it before [facility] did not like it. Medically discussion she states she has concerns for leg swelling. No trouble urinating. She states shewas attacked by pit bull in January before going to [facility]. Denies any fevers. Prior similar symptoms: Yes PFSH [facility] Medical History (Updated 03/01/23 @ [...] clinician: Hospitalist This note was generated with [employer] software. It may contain incorrectwords, spelling, and [...] % (Auto) 54.0 Lymph % (Auto) 32.7 Roberts % (Auto) 7.2 Eos % (Auto) 4.9 [...] regimen, Hypokalemia Disposition Disposition: Acute Care Hospital [facility] What to do if you have Problems For any increased pain, shortness of breath, bleeding, nausea or vomiting, chestpain, or any unexpected problems, contact your Primary Care Provider. Call [facility] ([phone]) or report to the closest Emergency Room. Call 911 if necessary. 03/01/23 0221 <Electronically signed by Fabio Lieberman> Cosigner Signature (if applicable): CC: Dr. Shira Rider MD ~ Signed [facility] Work Phone: Discharge summary Author Taylor Alarcon [facility] March 03, 2023 11:06am Note Date/Time March 03, 2023 10 :59am [facility] Medical Records Department [address] [place] [address] Discharge Summary 03/03/23 1058 MR#: [id number] Acct: [id number] Name: RYLEYOctober Rep #:[id number] : 1970 52 From: Taylor Alarcon DO PCP: Dr. Shira Rider MD Status:ADM [facility] Providers Date of Admission: 03/01/23 Date of [...] tablet 150 mg PO DAILY PRN MIGRAINE 08/18/19 ferrous sulfate 325 mg (65 mg iron) [...] who presented to the emergency department at [facility] on 03/01/2023for acute opiate withdrawal. She [...] habitus and well nourished Constitutional Narrative: Middle-aged, -[place] female, sitting up in bed watching television, [...] Provider: Taylor Alarcon Primary Care Provider: Shira Ridre Consulting Providers: Kristen Caraballo Discharge Orders/Prescriptions Prescriptions: [...] [Primary Care Provider] - Within 1 Month [facility],Out of [Non-Staff] - Disposition Disposition (needs filled in before D/C Order can be placed): Inpatient Rehab Unit/Facility Charges/Coding Visit Charges Inpatient E&M: 51572 Disch Hosp 03/03/23 1106 <Electronically signed by Taylor Alarcon DO> Cosigner Signature (if applicable): CC: Dr. Shira Rider MD; Dr. Taylor Alarcon DO~ Signed [facility] Work Phone: Evaluation note* Diagnosis Onset Date Resolution Status History of bipolar disorder acute Hypokalemia acute Noncompliance with medication regimen acute Opiate withdrawal acute Polysubstance dependence acu te [facility] Work Phone: Evaluation note* Diagnosis Onset Date Resolution Status History of bipolar disorder acute Hypernatremia acute Hypokalemia acute Noncompliance with medication regimen acute Opiate withdrawal acute Polysubstance dependence acu [facility] Work Phone: Evaluation note* Diagnosis Acute cough- Primary History of asthma Personal history of other diseases of respiratory system documented in this encounter [facility] note* Diagnosis Itching- Primary Unspecified pruritic disorder documented in this encounter [facility] note* Diagnosis Essential (primary) hypertension Unspecified essential hypertension [facility]* Diagnosis Scalp lesion- Primary Unspecified disorder of skin and subcutaneous tissue Essential (primary) hypertension Unspecified essential hypertension Pure hypercholesterolemia Encounter for screening mammogram for malignant neoplasm of breast Elevated serum glucose Mild intermittent asthma without complication Gastroesophageal reflux disease without esophagitis Esophageal reflux Rash Rash and other nonspecific skin eruption Anemia, unspecified type documented in this encounter [facility] note* Diagnosis Lymphadenopathy, cervical- Primary documented in this encounter [facility]* Diagnosis Lymphadenopathy, cervical- Primary documented in this encounter [facility] note* Diagnosis Bipolar I disorder (HCC)- Primary Bipolar I disorder, most recent episode (or current) unspecified Rash Rash and other nonspecific skin eruption Dysuria Gastroesophageal reflux disease without esophagitis Esophageal reflux documented in this encounter [facility] note* Diagnosis Essential (primary) hypertension Unspecified essential hypertension documented in this encounter [facility]* Diagnosis Seborrheic dermatitis of scalp Other seborrheic dermatitis documented in this encounter [facility]* Diagnosis Seborrheic dermatitis of scalp Other seborrheic dermatitis documented in this encounter [facility]* Diagnosis Acute bilateral knee pain- Primary Family history of rheumatoid arthritis Family history of arthritis Varicose veins of both lower extremities with pain documented in this encounter [facility]* Diagnosis Acute bilateral knee pain- Primary Family history of rheumatoid arthritis Family history of arthritis Varicose veins of both lower extremities with pain Anemia, unspecified type documented in this encounter [facility]* Diagnosis Onset Date Resolution Status Admit Date Desire for detoxification acute January 25, 2025 10:03pm Opiate abuse, continuous acute January 25, 2025 10:03pm [facility] Work Phone: Evaluation note* Diagnosis Bilateral sensorineural hearing loss- Primary Sensorineural hearing loss, bilateral documented in this encounter [facility] Work Phone: History and physical note Author Kristen Caraballo [facility] March 01, 2023 2:35am Note Date/Time March 01, 2023 1: 48am [facility] Medical Records Department [address] [place] [address] H&P Exam - Hospitalist 03/01/23 0145 MR#: [id number] Acct: [id number] Name: RYLEYOctober Rep #:[id number] : 1970 52 From: Kristen Caraballo MD PCP: Dr. Shira Rider MD Status:ADM IN Location: [facility] [id number]- 1 HPI - General General Date of Admission: 03/01/23 Date of Service: 03/01/23 Chief Complaint: Acute Opiate withdrawal HPI Narrative The patient is a 52 y/o F w/ PMHx: Allergic rhinitis, HTN, Anxiety and Depression/Bipolar disorder, GERD, Overweight, Polysubstance abuse (Percocet/Opiates/Cocaine, Prior IVDA w/ heroin) who presents to the [facility] ED on 03/01/23 with noted acute [...] MDMA and cocaine, ethyl alcohol level <3. [facility] Medical History (Updated 03/01/23 @ [...] % (Auto) 54.0, Lymph % (Auto) 32.7, Roberts% (Auto) 7.2, Eos % (Auto) 4.9, Baso [...] IVDA w/ heroin) who presents to the [facility] ED on 03/01/23 with noted acute [...] Allergic rhinitis: From records patient Rx 10/24/22 adrián, given her psychiatric history to be cautious with its black box warning will d/c this medication and recommend claritin or allergra as an initial agent instead. #10. Overweight: Weight loss and lifestyle changes encouraged. #11. DVT prophylaxis: Low risk for current presentation. Charges/Coding Visit Charges Inpatient E&M: 27172 Init Hosp L3 03/01/23 0238 <Electronically signed by Kristen Caraballo MD> Cosigner Signature (if applicable): CC: Dr. Kristen Caraballo MD; Dr. Shira Rider MD~ Signed [facility] Work Phone: History of Present illness [...] recent ear infections. * Patient's preferred language: Salvadorean * Preferred language of the parent, legal guardian or surrogate decision-maker of this minor or incapacitated patient: Salvadorean * No overt signs of domestic violence/neglect/abuse. * No referral made to Admissions Dean. * Pain not interfering with optimal level [...] verbalize recall / understanding and teaching complete. XC-Nhbehlwaj-Bgxvy MAC1 205 [place] Work Phone: [facility] ([facility] Consultation (Routine) - Pending Review Specialty Diagnoses / Procedures Referred By Contac t Referred To Contact Dermatology Diagnoses Scalp lesion Procedures [place] OFFICE/OUTPATIENT NEW HIGH MDM 60 MINUTES Roseline Thakkar DO [address] [facility] [address] [place] [address] Devin Sorto MD [address] [place] [address] Referral ID Status Reason Start Date Expiration Date Visits Requested Visits Authorized [id number] Pending Review Specialty Services Required 11/12/2023 11/11/2024 1 1 [facility] for referral (narrative)* Consultation (Routine) - Pending Review Specialty Diagnoses / Procedures Referred By Contac t Referred To Contact Infectious Diseases Diagnoses Rash Procedures [place] OFFICE/OUTPATIENT NEW HIGH [facility] 60 MINUTES Roseline Thakkar DO [address] [place] [address] [place] [address] [facility] [address] [place] [address] Referral ID Status Reason Start Date Expiration Date Visits Requested Visits Authorized [id number] Pending Review Specialty Services Required 03/28/2024 03/28/2025 1 1 Michaela Dash for referral (narrative)No reason for referral information [facility] Work Phone: Summary Purpose Family History No Family History Records Found Relationship Condition Age at Onset Recorded Date/T meghna mother Diabetes mellitus Unknown Hypertension Unknown Rheumatoid arthritis Unknown father Diabetes mellitus Unknown Malignant neoplasm Unknown Advance Directives No Advanced Directives Records Found Advance Directive Response Recorded Date/ Time Living Will No March 01 12:57am Power of Shoe Designer No March 01, 2 023 12:57am Advance Directive Response Recorded Date/ Time Living Will No March 01 3:04am Power of Shoe Designer No March 01, 2 023 3:04am Advance Directive Response Recorded Date/ Time Do you have a Healthcare Power of Shoe Designer? No January 25, 2025 8:10pm Advance Directive Response Recorded Date/ Time Do you have a Healthcare Power of Shoe Designer? No January 25, 2025 11:25pm Chief Complaint annual hearing evaluation Chief Complaint and Reason for Visit Chief Complaint OPIATE WITHDRAWL Reason for Visit History of bipolar d isorder Hypokalemia Noncompliance with medication regimen Opiate withdrawal Polysubstance dependence Chief Complaint OPIATE WITHDRAWL OPIATE WITHDRAWL OPIATE WITHDRAWL Reason for Visit History of bipolar d isorder Hypernatremia Hypokalemia Noncompliance with medication regimen Opiate withdrawal Polysubstance dependence Chief Complaint Admit Date OPIATE DETOX January 25, 2025 10:0 3pm Reason for Visit Admit Date Desire for detoxification January 25 10:03pm Opiate abuse, continuous January 25, 2025 10:03pm Chief Complaint Admit Date OPIATE DETOX January 25, 2025 10:0 3pm OPIATE DETOX January 26, 2025 2:00 pm OPIATE DETOX January 27, 2025 3:47 pm Reason for Visit Admit Date Desire for detoxification January 25 10:03pm Opiate abuse, continuous January 25, 2025 10:03pm Opiate dependence January 25, 2025 10:0 3pm Opiate withdrawal January 25, 2025 10:0 3pm Chief Complaint Admit Date OPIATE DETOX January 25, 2025 10:0 3pm OPIATE DETOX January 26, 2025 2:00 pm OPIATE DETOX January 27, 2025 3:47 pm OPIATE DETOX January 28, 2025 11:1 7am [facility] March 29, 2025 3:15pm Reason for Visit Admit Date Opiate withdrawal January 25, 2025 10:0 3pm Desire for detoxification January 25 10:03pm Opiate abuse, continuous January 25, 2025 10:03pm Opiate dependence January 25, 2025 10:0 3pm Additional Source Comments INFORMATION SOURCE (unrecogn ized section and content) DATE CREATED AUTHOR 01/07/2018 [facility] DATE CREATED AUTHOR AUTHOR'S ORGANIZ ATION 01/12/2018 [facility] DATE CREATED AUTHOR AUTHOR'S ORGANIZ ATION 01/12/2018 [facility] DATE CREATED AUTHOR AUTHOR'S ORGANIZ ATION 10/15/2018 [facility] DATE CREATED AUTHOR AUTHOR'S ORGANIZ ATION 10/24/2018 [facility] DATE CREATED AUTHOR AUTHOR'S ORGANIZ ATION 08/11/2020 [facility] DATE CREATED AUTHOR AUTHOR'S ORGANIZ ATION 09/13/2021 [facility] DATE CREATED AUTHOR AUTHOR'S ORGANIZ ATION 09/17/2021 [facility] DATE CREATED AUTHOR AUTHOR'S ORGANIZ ATION 12/27/2022 [facility] DATE CREATED AUTHOR AUTHOR'S ORGANIZ ATION 06/28/2023 [facility] DATE CREATED AUTHOR AUTHOR'S ORGANIZ ATION 04/25/2024 [facility] DATE CREATED AUTHOR AUTHOR'S ORGANIZ ATION 08/04/2024 [facility] DATE CREATED AUTHOR AUTHOR'S ORGANIZ ATION 11/29/2024 [facility] DATE CREATED AUTHOR AUTHOR'S ORGANIZ ATION 04/13/[address] [facility] DATE CREATED AUTHOR AUTHOR'S ORGANIZ ATION 04/28/2025 [facility] Clerk Teams (unrecognized sec tion and content) Team [...] Dr. Taylor Alarcon DO Attending Provider Active [employer] Director Relationship Specialty Start Date End Date Shira Rider MD [address] [place] [address] PCP - General 04/11/18 [employer] Director Relationship Specialty Start Date End Date Shira Rider MD [address] [place] [address] [place] [address] PCP - General 04/11/18 [employer] Director Relationship Specialty Start Date End Date Shira Rider MD [address] [place] [address] PCP - General 04/11/18 [employer] Director Relationship Specialty Start Date End Date Roseline Thakkar DO [address] [place] [address] [place] [address] PCP - General Internal Medicine 10/12/23 [employer] Director Relationship Specialty Start Date End Date Roseline Thakkar DO [address] [place] [address] [place] [address] PCP - General Internal Medicine 10/12/23 [employer] Director Relationship Specialty Start Date End Date Roseline Thakkar DO [address] [place] [address] PCP - General Internal Medicine 10/12/23 [employer] Director Relationship Specialty Start Date End Date Roseline Thakkar [address] [place] [address] PCP - General Internal Medicine 10/12/23 [employer] Director Relationship Specialty Start Date End Date Shannon Thakkartany [address] [place] [address] PCP - General Internal Medicine 10/12/23 [employer] Director Relationship Specialty Start Date End Date Roseline Thakkar DO [address] [place] [address] PCP - General Internal Medicine 10/12/23 [employer] Director Relationship Specialty Start Date End Date Roseline Thakkar DO [address] [place] [address] PCP - General Internal Medicine 10/12/23 [employer] Director Relationship Specialty Start Date End Date Shira Rider MD [address], [address] [place] [address] PCP - General 04/11/18 [employer] Director Relationship Specialty Start Date End Date Shira Rider MD [address], [address] [place] [address] PCP - General 04/11/18 [employer] Director Relationship Specialty Start Date End Date Roseline Thakkar DO [address] [place] [address] PCP - General Internal Medicine 10/12/23 [employer] Director Relationship Specialty Start Date End Date Roseline Thakkar DO [address] [place] [address] PCP - General Internal Medicine 10/12/23 [employer] Director Relationship Specialty Start Date End Date Roseline Thakkar DO [address] [place] [address] PCP - General Internal Medicine 10/12/23 [employer] Director Relationship Specialty Start Date End Date Roseline Thakkar DO [address] [place] [address] [place], [place] [id number] PCP - General Internal Medicine 10/12/23 Team Status: Active Member Role/Relationship Status Dates Dr. Roseilne Thakkar MD Primary Care Provider Ac tive Team Status: Active Member Role/Relationship Status Dates Dr. Roseline Thakkar MD Primary Care Provider Ac tive Start: January 25, 2025 Dr. Abdoul Morales MD Emergency Provider Active Sta rt: January 25, 2025 Dr. Yasmani Yanes DO Admit Provider Active Start: January 25, 2025 Dr. Yasmani Yanes DO Attending Provider Active Start: January 25, 2025 Dr. Yasmani Yanes DO Other Provider Active Start: January 25, 2025 Team Status: Inactive Member Role/Relationship Status Dates Dr. Roseline Thakkar MD Primary Care Provider Ac tive Start: January 25, 2025 End: January 28, 2025 Dr. Abdoul Morales MD Emergency Provider Active Sta rt: January 25, 2025 End: January 28, 2025 Dr. Yasmani Yanes DO Admit Provider Active Start: January 25, 2025 End: January 28, 2025 Dr. Yasmani Yanes DO Other Provider Active Start: January 25, 2025 End: January 28, 2025 Dr. Alla Nguyen DO Attending Provider Active Start: January 25, 2025 End: January 28, 2025 Team Status: Active Member Role/Relationship Status Dates Dr. Roseline Thakkar MD Primary Care Provider Ac tive Start: January 26, 2025 Dr. Abdoul Morales MD Emergency Provider Active Sta rt: January 26, 2025 Dr. Yasmani Yanes , DO Admit Provider Active Start: January 26, 2025 Dr. Yasmani Yanes , Other Provider Active Start: January 26, 2025 Dr. Alla Nguyen , Attending Provider Active Start: January 26, 2025 Dr. Alla Nguyen , DO Other Provider Active S tart: January 26, 2025 Team Status: Active Member Role/Relationship Status Dates Dr. Roseline Thakkar MD Primary Care Provider Ac tive Start: January 27, 2025 Dr. Abdoul Morales MD Emergency Provider Active Sta rt: January 27, 2025 Dr. Yasmani Yanes DO Admit Provider Active Start: January 27, 2025 Dr. Yasmani Yanes DO Other Provider Active Start: January 27, 2025 Dr. Alla Nguyen DO Attending Provider Active Start: January 27, 2025 Dr. Alla Nguyen , Other Provider Active S tart: January 27, 2025 Team Status: Active Member Role/Relationship Status Dates Dr. Roseline Thakkar MD Primary care physician A ctive Team Status: Inactive Member Role/Relationship Status Dates Dr. Roseline Thakkar MD Primary care physician Active Start: January 25, 2025 End: January 28, 2025 Dr. Abdoul Morales MD Emergency Department Physician Active Start: January 25, 2025 End: January 28, 2025 Dr. Yasmani Yanes DO Admitting physician Active Start: January 25 End: January 28, 2025 Dr. Yasmani Yanes DO Nurse Practitioner Active Start: January 25 End: January 28, 2025 Dr. Alla Nguyen DO Attending physician Active Start: January 25, 2025 End: January 28, 2025 Team Status: Active Member Role/Relationship Status Dates Dr. Roseline Thakkar MD Primary care physician Active Start: January 26, 2025 Dr. Abdoul Morales MD Emergency Department Physician Active Start: January 26, 2025 Dr. Yasmani Yanes DO Admitting physician Active Start: January 26 Dr. Yasmani Yanes DO Nurse Practitioner Active Start: January 26 Dr. Alla Nguyen DO Attending physician Active Start: January 26, 2025 Dr. Alla Nguyen , DO Nurse Practitioner Active Start: January 26, 2025 Team Status: Active Member Role/Relationship Status Dates Dr. Roseline Thakkar MD Primary care physician Active Start: January 27, 2025 Dr. Abdoul Morales MD Emergency Department Physician Active Start: January 27, 2025 Dr. Yasmani Yanes , DO Admitting physician Active Start: January 27 Dr. Yasmani Yanes DO Nurse Practitioner Active Start: January 27 Dr. Alla Nguyen DO Attending physician Active Start: January 27, 2025 Dr. Alla Nguyen DO Nurse Practitioner Active Start: January 27, 2025 Team Status: Active Member Role/Relationship Status Dates Dr. Roseline Thakkar MD Primary care physician Active Start: January 28, 2025 Dr. Abdoul Morales MD Emergency Department Physician Active Start: January 28, 2025 Dr. Yasmani Yanes DO Admitting physician Active Start: January 28 Dr. Yasmani Yanes DO Nurse Practitioner Active Start: January 28 Dr. Alla Nguyen DO Attending physician Active Start: January 28, 2025 Dr. Alla Nguyen , Nurse Practitioner Active Start: January 28, 2025 Team Status: Inactive Member Role/Relationship Status Dates Dr. Roseline Thakkar MD Primary care physician Active Start: March 29, 2025 End: March 29, 2025 JUDIE Ordonez Attending physician Active Start: March 29, 2025 End: March 29, 2025 JUDIE Ordonez Referring Provider Active Start: March 29, 2025 End: March 29, 2025 [employer] Director Relationship Specialty Start Date End Date Mireya Hogan MD PCP - General 01/23/16 Goals (unrecognized section and content) Goals may be documented in a n alternate sectionGoals may be documented in an alternate section Source Comments (unrecognize d section and content) In the event this informatio n is protected by the Federal Confidentiality of Alcohol and Drug Abuse Patient Records regulations: The Federal rules restrict any use of the information to criminally investigate or prosecute any alcohol or drug abuse patient.[facility] the event this information is protected by the Federal Confidentiality of Alcohol and Drug Abuse Patient Records regulations: The Federal rules restrict any use of the information to criminally investigate or prosecute any alcohol or drug abuse patient.[facility] the event this information is protected by the Federal Confidentiality of Alcohol and Drug Abuse Patient Records regulations: The Federal rules restrict any use of the information to criminally investigate or prosecute any alcohol or drug abuse patient.[facility] Reason for Visit (unrecogniz ed [...] OTC Reason Onset Date Comments UTI 11/28/2024 Reason Comments Advice Only HAE Hearing Loss Bilateral ears FOR RECORDS PERTAINING TO PATIENTS WHO ARE [...] BE BASED ON THE PRIMARY CLINICAL RECORDS. [facility] [employer] [facility]. provides no warranty or guarantee of the accuracy or completeness of information in this document.
[2025-06-20 20:18] LABS: Color, Urine Yellow (Yellow); Glucose, Dipstick Normal (Normal); Ketone-Dipstick Negative (Negative); Leukocyte Esterase-Dipstick 25 /ul (Negative); Nitrite-Dipstick Negative (Negative); Occult Blood-Urine Negative /ul (Negative); Protein-Dipstick 30 mg/dl (Negative); Specific Gravity, Urine 1.025 (1.002-1.030); Urine Bilirubin Dipstick Negative (Negative)
[2025-06-20 21:34] LABS: Yeast-Urine 1+ /hpf (None Seen)
[2025-06-20 21:36] LABS: Squamous Epithelial Cells - UA 5-10 SEEN /hpf (5-10)
[2025-06-20 21:37] LABS: Red Blood Cells-Urine 0-5 SEEN /hpf (0-5)
== END | disposition home or self-care (01) ==
LOC: LABSPEC 14:11
PROVIDERS: PCP Internal Medicine; Referring Provider Nurse Practitioner Family; Visit Provider Nurse Practitioner Family
DX: R10.9 Unspecified abdominal pain (principal)
CPT/HCPCS: 81001; 87086